=== PATIENT | female | born 1945 | race Caucasian/White ===

== ENCOUNTER 2019-12-28 11:32 | Outpatient (REF) | payer MEDICARE, SELFPAY ==
--- NOTE | 2019-12-28 11:36 | XR_ITS ---
EXAMINATION: XR KNEE, LEFT CLINICAL INFORMATION: Left knee pain. COMPARISON: None TECHNIQUE: Standing AP view of both knees is performed along with lateral and axial patella views of the left knee. FINDINGS: There is left knee arthroplasty. The hardware is intact. There is no fracture or dislocation or destructive process. There is likely some trace fluid suprapatellar bursa suggested on the lateral view. There is mineralization at quadriceps insertion patella and at origin patellar tendon. The axial view left patella shows mild lateralization. There is right knee arthroplasty. The hardware appears intact. There is no destructive process. The right prosthetic joint space appears not as wide as the left which could be projectional. IMPRESSION: Status post bilateral knee arthroplasty. No destructive process or osteolysis. Lateralization left patella with probable small suprapatellar effusion.
== END 2019-12-28 11:33 | disposition home or self-care (01) ==
LOC: CF 11:32
PROVIDERS: PCP Family Medicine; Visit Provider Orthopaedic Surgery
DX: M25.562 Pain in left knee (principal)
CPT/HCPCS: 20610; 73562; 99213

== ENCOUNTER 2019-12-28 13:52 | Outpatient (REF) | payer MEDICARE, SELFPAY | END 2019-12-28 13:53 | disposition home or self-care (01) | LOC: HO.LAB 13:52 | PROVIDERS: PCP Family Medicine; Visit Provider Internal Medicine | DX: Z20.828 Contact with and (suspected) exposure to other viral communicable diseases (principal) | CPT/HCPCS: 87635 ==

== ENCOUNTER → 2020-02-02 08:32 | Outpatient (BNVA) | payer MEDICARE, SELFPAY | PROVIDERS: PCP Family Medicine; Referring Provider Family Medicine; Visit Provider Urology | DX: Z76.89 Persons encountering health services in other specified circumstances (principal) | CPT/HCPCS: 99212 ==

== ENCOUNTER → 2020-02-05 12:26 | Outpatient (BNVA) | payer MEDICARE, SELFPAY | PROVIDERS: PCP Family Medicine; Referring Provider Family Medicine; Visit Provider Orthopaedic Surgery | DX: T84.84XD Pain due to internal orthopedic prosthetic devices, implants and grafts, subsequent encounter (principal); Z96.652 Presence of left artificial knee joint | CPT/HCPCS: 99212 ==

== ENCOUNTER → 2020-04-02 10:40 | Outpatient (BNVA) | payer MEDICARE, SELFPAY | PROVIDERS: PCP Family Medicine; Visit Provider Internal Medicine | DX: J45.909 Unspecified asthma, uncomplicated (principal); J98.4 Other disorders of lung; Z87.891 Personal history of nicotine dependence | CPT/HCPCS: 99212 ==

== ENCOUNTER 2020-05-03 08:28 | Day surgery (SDC) | payer MEDICARE, SELFPAY ==
[2020-04-29 15:35] VITALS: BMI 31.1
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
[2020-05-03 09:55] VITALS: BP 112/67; PULSE 96; RESP 18; TEMP 36.6; O2SAT 96
[2020-05-03] MEDS: Lactated Ringers 1,000 ML 100 ML IVCONT (10:00)
[2020-05-03 11:36] VITALS: BP 95/53; PULSE 74; RESP 12; TEMP 36.7; O2SAT 95
--- NOTE | 2020-05-03 11:36 | PM.OP ---
Brief Operative Note Date of Service: 05/03/20 Pre-op diagnosis: Screening, Diarrhea Post-op diagnosis: other (Diverticuylosis, R/O Microscopic colitis) Procedure: Colonoscopy to the cecum with biopsies Surgeon: Sergey Hernandez Anesthesia: MAC Estimated blood loss (mL): 4.0 Pathology: other (A. Ascending colon B. Descending colon) Condition: stable Disposition: PACU
[2020-05-03 11:51] VITALS: BP 96/63; PULSE 74; RESP 16; TEMP 36.7; O2SAT 96
--- NOTE | 2020-05-03 12:11 | OP_ITS ---
SURGEON: Sergey Hernandez MD INDICATIONS: The patient presents for evaluation of colorectal cancer screening, family history of colon cancer, and intermittent diarrhea. Full consent has been obtained from her for this, including risks of bleeding and perforation. PREOPERATIVE DIAGNOSIS: POSTOPERATIVE DIAGNOSIS: PROCEDURE PERFORMED: Colonoscopy to the cecum with biopsies. ESTIMATED BLOOD LOSS: COMPLICATIONS: ANESTHESIA: Monitored anesthesia care. ASSISTANTS: SPECIMENS: PREOPERATIVE DIAGNOSES: Colorectal cancer screening, family history of colon cancer, and intermittent diarrhea. POSTOPERATIVE DIAGNOSES: Colorectal cancer screening, family history of colon cancer, and intermittent diarrhea, diverticulosis, internal hemorrhoids, rule out microscopic colitis. DESCRIPTION OF PROCEDURE: The patient was placed in the left lateral decubitus position. The digital rectal exam revealed no abnormalities. The Olympus video pediatric colonoscope was entered into the rectum and advanced to the cecum with the assistance of abdominal wall pressure. Once in the cecum, I did identify normal-appearing cecal pouch with appendiceal orifice and a normal-appearing ileocecal valve. The entire cecum and ileocecal valve appeared normal. The scope was slowly withdrawn assessing all mucosal surfaces carefully. Preparation was excellent. I did not visualize any sign of polyps, colitis, nor angiodysplasia. I did obtain random biopsies in the ascending and descending colon. There was a mild amount of sigmoid diverticulosis. In the rectum, scope was retroflexed visualizing small internal hemorrhoids, but no other pathology. The rectal mucosa appeared normal. The scope was straightened out and withdrawn from the patient. She tolerated the procedure well and was returned to the recovery area in stable condition. IMPRESSION: 1. Diverticulosis. 2. Internal hemorrhoids. 3. Rule out microscopic colitis. PLAN: The patient will continue to use Imodium as needed for any loose bowel movements. She was advised not to use any aspirin nor NSAIDs for 1 week. If things are stable, she will see me on a p.r.n. basis. Sergey Hernandez MD RMArt/WALLYL / [phone]
[2020-05-03 12:17] LABS: Glucose, Whole Blood 170 mg/dL (60-115)
== END 2020-05-03 12:20 | disposition home or self-care (01) ==
PROVIDERS: PCP Family Medicine; Visit Provider Internal Medicine
PROC: 0DJD8ZZ Inspection of Lower Intestinal Tract, Via Natural or Artificial Opening Endoscopic (ICD-10-PCS; CPT 45378; principal; 2020-05-03 10:00)
DX: Z12.11 Encounter for screening for malignant neoplasm of colon (principal); R19.7 Diarrhea, unspecified; K57.30 Diverticulosis of large intestine without perforation or abscess without bleeding; K64.8 Other hemorrhoids; E11.9 Type 2 diabetes mellitus without complications; Z79.84 Long term (current) use of oral hypoglycemic drugs; Z80.0 Family history of malignant neoplasm of digestive organs
CPT/HCPCS: 45380; 82947; 88305

== ENCOUNTER 2020-05-28 11:28 | Outpatient (REF) | payer MEDICARE, SELFPAY ==
--- NOTE | 2020-05-30 14:23 | MHC.AU.P13 ---
Adult Audiological Evaluation Date of Visit: 05/28/20 Reason for Appointment: Audiological evaluation due to concern for decreased hearing. Patient's notes that she hasn't noticed many difficulties hearing, but her primary care recommended it. She notes that her left ear has been feeling clogged. Does patient feel they have a hearing loss?: Unsure Has hearing been tested previously?: Yes Previous Hearing Test Results: States that she had a hearing test years ago, results not available to be reviewed. Hearing Handicap Inventory: HHIE SCORE: 0 Based on HHIE score, patient has: No perceived hearing handicap Ear History: History of Ear Wax Buildup: Both Ears Medical History: Medical History: Headache, Head Injury, High Blood Pressure, Thyroid Disease Medical History (Other): Brain aneurysm Allergies: White fish Otoscopy: Right Ear: Unremarkable Left Ear: Unremarkable Tympanometry: Tympanometry performed due to: To assess integrity of the middle ear system Right Ear: Normal Middle Ear System (Type A) Left Ear: Normal Middle Ear System (Type A) Hearing Evaluation: Transducer(s) Used: Insert Earphones, Bone Conduction Method: Conventional Audiometry Stimuli Used: Pure Tones Right Ear: Description of Hearing: Mild sloping to moderately severe sensorineural hearing loss from 250-8000 Hz. Left Ear: Description of Hearing: Mild sloping to moderately severe sensorineural hearing loss from 250-8000 Hz. Speech Recognition Threshold (SRT): Method Used: Monitored Live Voice Stimuli Used: Spondee Words Right Ear: 25 dBHL Left Ear: 25 dBHL Word Discrimination: Method: Recorded Lists Word Lists Used: NU-6 Right Ear: 84% at 65 dBHL Left Ear: 88% at 65 dBHL Interpretation of Results: Symmetrical, mild to moderately severe sensorineural hearing loss bilaterally. Recommendations: Audiological re-evaluation in one year. Trial with amplification is recommended. May benefit from amplification, however patient states she is not interested in trying hearing aids at this time as she feels she does not need them and doesn't have difficulty hearing. Welcome to return to discuss hearing aids further if she should like to pursue them. Diagnosis: Primary Diagnosis: H90.3 Bilateral Sensorineural Hearing Loss Services Performed: Services Performed: Comprehensive Audiological Evaluation (CPT 50389) Tympanometry (CPT 41576) Signature: Provider: Amanda Hilton, CCC-A
== END 2020-05-28 11:29 | disposition home or self-care (01) ==
LOC: HO.SH 11:28
PROVIDERS: Visit Provider Family Medicine
DX: H90.3 Sensorineural hearing loss, bilateral (principal)
CPT/HCPCS: 92557; 92567

== ENCOUNTER 2020-06-27 12:31 | Outpatient (REF) | payer MEDICARE, SELFPAY ==
[2020-06-27 13:34] LABS: Blood Urea Nitrogen 16 mg/dL (9-16); Estimated Glomerular Filt Rate > 60
== END 2020-06-27 12:32 | disposition home or self-care (01) ==
LOC: HO.LAB 12:31
PROVIDERS: PCP Family Medicine; Visit Provider Otolaryngology
DX: R22.1 Localized swelling, mass and lump, neck (principal)
CPT/HCPCS: 36415; 82565; 84520

== ENCOUNTER 2020-07-12 11:26 | Outpatient (REF) | payer MEDICARE, SELFPAY ==
--- NOTE | ~2020-07-12 | MM_ITS ---
EXAMINATION: MM SCREENING DIGITAL BREAST TOMOSYNTHESIS, BILATERAL CLINICAL INFORMATION: Screening. Asymptomatic. The lifetime risk of breast cancer based on the Tyrer-Cuzick Model is 2%. COMPARISON: Mammography: 02/08/2019, 01/14/2018, 12/25/2016 TECHNIQUE: Digital breast tomosynthesis is performed in both the craniocaudal and mediolateral oblique views along with computer-aided detection (CAD). Synthesized 2D images are generated from the tomosynthesis. FINDINGS: The breasts are heterogeneously dense, which may obscure small masses (ACR BI-RADS breast composition Category c). Parenchymal pattern is similar to prior exams. There is no developing density or interval mass or architectural abnormality. Again, there are scattered bilateral vascular calcifications. The left CC view has increased punctate calcifications mid medial breast, possibly early vasculature. These are not as well appreciated on MLO view. Patient will be recalled for additional imaging. MM/MM tomosynthesis screening BI IMPRESSION: 1. Left: Increased fine calcifications medial left breast, possibly vascular. 2. Right: No mammographic evidence of malignancy. ASSESSMENT: BI-RADS 0: Incomplete - Need Additional Imaging Evaluation RECOMMENDATION: 1. Additional views of the left breast (magnification CC, magnification LM). 2. Radiology department staff will contact the patient for additional imaging. This patient's information was entered into a reminder system with a target due date for their next mammogram.
== END 2020-07-12 11:27 | disposition home or self-care (01) ==
LOC: HO.MAMMO 11:26
PROVIDERS: PCP Family Medicine; Visit Provider Family Medicine
DX: Z12.31 Encounter for screening mammogram for malignant neoplasm of breast (principal)
CPT/HCPCS: 77063; 77067

== ENCOUNTER 2020-07-18 08:25 | Outpatient (REF) | payer MEDICARE, SELFPAY ==
--- NOTE | ~2020-07-18 | MM_ITS ---
EXAMINATION: MM DIAGNOSTIC DIGITAL MAMMOGRAPHY, LEFT CLINICAL INFORMATION: Recall from screening for calcifications mid medial left breast. COMPARISON: Mammography: 07/12/2020 and remote diagnostic mammography 06/21/2009 and 12/17/2008. TECHNIQUE: Digital mammography is performed in the following views: Magnification CC, magnification LM x2. FINDINGS: The breasts are heterogeneously dense, which may obscure small masses (ACR BI-RADS breast composition Category c). The additional magnification views show some loosely grouped stable calcifications posterior upper left breast in area of old vascular calcification. There are some scattered punctate calcifications more anteriorly upper inner left breast and at tight group of calcifications 9:30 - 10:00 position which are without change from prior remote magnification views left breast 2009 and 2008. No increasing or interval new calcifications demonstrated. Results are discussed with the patient at time of visit. MM/MM added views LT IMPRESSION: Calcifications appear similar to remote prior diagnostic left mammography. No significant changes. ASSESSMENT: BI-RADS 2: Benign RECOMMENDATION: Routine annual mammography screening. This patient's information was entered into a reminder system with a target due date for their next mammogram.
== END 2020-07-18 08:26 | disposition home or self-care (01) ==
LOC: HO.MAMMO 08:25
PROVIDERS: Visit Provider Family Medicine
DX: R92.1 Mammographic calcification found on diagnostic imaging of breast (principal)
CPT/HCPCS: 77065

== ENCOUNTER → 2020-07-22 08:26 | Outpatient (REF) | payer MEDICARE, SELFPAY ==
--- NOTE | ~2020-07-22 | MM_ITS ---
EXAMINATION: MM DIAGNOSTIC DIGITAL BREAST TOMOSYNTHESIS, BILATERAL CLINICAL INFORMATION: Shooting pain in and around the nipple of the left breast The lifetime risk of breast cancer based on the Tyrer-Cuzick Model is 2%. COMPARISON: Mammography: July 18, 2020 and studies dating back to October 27, 2013 TECHNIQUE: Digital breast tomosynthesis is performed in both the craniocaudal and mediolateral oblique views along with computer-aided detection (CAD). Synthesized 2D images are generated from the tomosynthesis. Targeted left breast ultrasound retroareolar region. FINDINGS: The breasts are heterogeneously dense, which may obscure small masses (ACR BI-RADS breast composition Category c). There are no significant masses, abnormal calcifications, or other abnormalities. No left breast ultrasound abnormality in the retroareolar region was identified. Results are discussed with the patient at time of visit.
--- NOTE | ~2020-07-22 | NM_ITS ---
Myocardial perfusion study Indication: Shortness of breath evaluate for myocardial ischemia Technique: The patient was brought in for a Lexiscan perfusion study on 07/22/2020. Patient performed low-level exercise and was injected 0.4 mg of Lexiscan intravenously. Within a minute of injection, 25 mCi of sestamibi was given intravenously. Images were obtained using the SPECT gamma camera interlaced with the gating device. Images were obtained in supine position. Resting perfusion study was performed on 07/24/2020. Patient was administered 25 mCi of sestamibi intravenously at rest. Images were then obtained in supine position. Images obtained with and without CT attenuation. Total DLP 93 mGy-cm. Images were processed with the software and compared side to side in short axis, horizontal long axis and vertical long axis views. Findings: The stress perfusion study showed non attenuated images show normal uptake of radiotracer in all segments of LV myocardium. Attenuation corrected images show small area of mildly reduced uptake in the apex of the LV myocardium.. The gated study shows normal LV systolic function with calculated LVEF of 69%. LV cavity is normal in size. The gated study shows normal systolic wall thickening and contraction of segments. Resting study shows no change in perfusion pattern compared to stress perfusion study. Gating at rest reveals normal systolic wall motion with ejection fraction at greater than 70 %. The findings are consistent with normal myocardial perfusion. NM/NM arely perf SPECT rest & str Impression: 1. Myocardial perfusion imaging study shows normal myocardial perfusion 2. Gated LVEF is 69% 3. Transient ischemic dilatation not present EKG is nondiagnostic for ischemia
--- NOTE | ~2020-07-22 | US_ITS ---
EXAMINATION: US DIAGNOSTIC ULTRASOUND BREAST, LEFT CLINICAL INFORMATION: Retroareolar pain. COMPARISON: Mammography of same day and studies dating back to October 27, 2013. TECHNIQUE: Ultrasound of the breast is performed with real-time patino scale imaging and color Doppler. FINDINGS: There is no focal suspicious finding. There is no solid mass, architectural abnormality, duct ectasia, or edema in the soft tissue planes. Results are discussed with the patient at time of visit.
--- NOTE | 2020-07-22 09:15 | CA_ITS ---
Acquisition Time: 2020-07-22 09:07:57 Total Exercise Time: 00:02:00 Test Indications: CP Medications: SEE CHART Protocol: LEXISCAN Max HR: 129 BPM 88% of Pred: 145 BPM Max BP: 130/080 mmHG Max Work Load: 1.0 METS Pharmacological stress test using Lexiscan while sitting. Pt tolerated well, denies any anginal sx. Sx of dizziness reversed with Aminophyline 75 mg IV. EKG with burst of a-fib. in recovery period. As her rate imncreased pt's rhythm changed to incomplete LBBB. Non-diagnostic for ischemia. Nuclear images to follow. Normotensive response to test. Test reviewed with Dr. Casillas. Referred By: Huey Herrera Overread By: Evelyne Chow NP
== END ==
LOC: HO.CARD 08:26
PROVIDERS: Visit Provider Internal Medicine Cardiovascular Disease
DX: R06.02 Shortness of breath (principal)
CPT/HCPCS: 78452; 93016; 93017; 93018; A9500; J0280; J2785

== ENCOUNTER 2020-09-05 13:34 | Outpatient (REF) | payer MEDICARE, SELFPAY ==
--- NOTE | ~2020-09-05 | MM_ITS ---
EXAMINATION: BONE DENSITOMETRY CLINICAL INDICATION: Osteopenia. COMPARISON: Previous BD dated 10/18/2015 and baseline BD dated 01/28/2007. TECHNIQUE: Using a [employer] DXA System (software version: 13.1) manufactured by [employer], dual-energy x-ray absorptiometry was performed of the lumbar spine and left hip. The images are of good technical quality. Summary results are attached. FINDINGS: AP SPINE L1-L4: Current: BMD 1.323 g/cm2, Z-score 2.7, T-score 1.2, normal, 3.7% increase from previous, 31.3% increase from baseline (<5% change is not significant). Prior: BMD 1.276 g/cm2. Baseline: BMD 1.008 g/cm2. LEFT FEMUR, NECK: Current: BMD 0.729 g/cm2, Z-score -0.5, T-score -2.2, osteopenia. Prior: BMD 0.790 g/cm2. Baseline: BMD 0.747 g/cm2. LEFT FEMUR, TOTAL: Current: BMD 0.884 g/cm2, Z-score 0.6, T-score -1.0, normal, 0.3% decrease from previous, 2.4% decrease from baseline (<5% change is not significant). Prior: BMD 0.887 g/cm2. Baseline: BMD 0.906 g/cm2. IDENTIFIED RISK FACTORS: Menopause, height loss, osteoporosis, family history (parent hip fracture). HISTORY OF FRACTURE: None listed. MEDICATIONS: Calcium, vitamin D. MM/XR DEXA axial skeleton IMPRESSION: 1. DIAGNOSIS: Osteopenia based on the lowest T-score value of -2.2 in the femoral neck applying World Health Organization criteria. 2. 10-YEAR FRACTURE RISK PREDICTION, FRAX: Major osteoporotic fracture (clinical spine, forearm, hip or shoulder) 16.0%. Hip fracture 9.7%. 3. Treatment Recommendations: NOF guidelines recommend consideration for treatment in postmenopausal women and men age 50 and older presenting with the following: -A hip or vertebral (clinical or morphometric) fracture. -T-score less than or equal to -2.5 at the femoral neck or spine after appropriate evaluation to exclude secondary causes. -Low bone mass at the hip or spine and a 10-year fracture probability by FRAX of greater than or equal to 3% for hip fracture or greater than or equal to 20% for major osteoporotic fracture based on the [place] adapted WHO algorithm. 4. Other Recommendations: All treatment decisions require clinical judgment and consideration of individual patient factors, including patient preferences, comorbidities, previous drug use, risk factors not captured in the FRAX model (e.g. frailty, falls, vitamin D deficiency, increased bone turnover, interval significant decline in bone density) and possible under or overestimation of fracture risk by FRAX. Additional medical evaluation for secondary cause of low bone mineral density may be appropriate. FUTURE SCAN RECOMMENDATION: People with diagnosed cases of osteoporosis or at high risk for fracture should have regular bone mineral density tests. For patients eligible for Medicare, routine testing is allowed once every 2 years. The testing frequency can be increased to one year for patients who have rapidly progressing disease, those who are receiving or discontinuing medical therapy to restore bone mass, or have additional risk factors.
== END 2020-09-05 13:35 | disposition home or self-care (01) ==
LOC: HO.MAMMO 13:34
PROVIDERS: PCP Family Medicine; Visit Provider Family Medicine
DX: Z13.820 Encounter for screening for osteoporosis (principal); M85.80 Other specified disorders of bone density and structure, unspecified site; R29.890 Loss of height; Z78.0 Asymptomatic menopausal state
CPT/HCPCS: 77080

== ENCOUNTER 2020-09-05 14:30 | Emergency (ER) | payer MEDICARE, SELFPAY ==
--- NOTE | 2020-09-05 | ECG_ITS ---
Test Reason : CHEST PAIN Blood Pressure : / mmHG Vent. Rate : 072 BPM Atrial Rate : 072 BPM P-R Int : 178 ms QRS Dur : 102 ms QT Int : 382 ms P-R-T Axes : 027 -20 076 degrees QTc Int : 418 ms Normal sinus rhythm Possible Lateral infarct , age undetermined Inferior infarct , age undetermined Abnormal ECG When compared to the previous EKG of 11 nov 2019, changes noted in lateral leads Referred By: Generic ED Physician Electronically Signed By:JUAN PENA
--- NOTE | ~2020-09-05 | XR_ITS ---
EXAMINATION: XR CHEST CLINICAL INFORMATION: Mid chest pain COMPARISON: None TECHNIQUE: 2 views of the chest were obtained. FINDINGS: The lungs are well-expanded and clear. The heart size and pulmonary vascularity is normal. No gross bony abnormality seen. XR/XR chest 2V IMPRESSION: Unremarkable chest exam.
[2020-09-05 15:10] VITALS: BP 114/61; PULSE 73; RESP 18; TEMP 36.5; O2SAT 95; BMI 30.2
[2020-09-05 16:50] LABS: MANUAL DIFF FLAG NO
[2020-09-05 16:51] LABS: Basophils Percent Auto 0.1 % (0-2); Eosinophils Absolute Auto 0.1 X10*3/uL (0.0-0.4); Hematocrit 45.5 % (37-47); Hemoglobin 15.1 g/dl (12.0-16.0); Imm Gran Abs Auto 0.02 X10*3/uL (0.00-0.03); Imm Gran Pct Auto 0.2 % (0.0-0.4); Lymphocytes Absolute Auto 2.4 X10*3/uL (1.2-4.9); Lymphocytes Percent Auto 28.9 % (20-40); Mean Corpuscular HGB Conc 33.2 g/dl (31.0-35.0); Mean Corpuscular Hemoglobin 30.3 pg (27.0-33.0); Mean Corpuscular Volume 91.4 fL (80-98); Mean Platelet Volume 11.1 fL (9.4-12.3); Monocytes Absolute Auto 0.6 X10*3/uL (0.1-1.2); Monocytes Percent Auto 6.9 % (2-11); Neutrophils Absolute Auto 5.2 X10*3/uL (2.0-8.3); Neutrophils Percent Auto 62.9 % (45-73); Platelet Count 231 X10*3/uL (160-400); Red Blood Count 4.98 X10*6/uL (4.20-5.50); Red Cell Distribution Width 12.5 % (11.0-16.0); White Blood Count 8.3 X10*3/uL (4.8-10.8)
[2020-09-05 17:23] LABS: Troponin-I High Sensitivity < 3.5 ng/L (<3.5-17.0)
[2020-09-05 17:30] LABS: Alanine Aminotransferase 13 U/L (0-31); Albumin Level 4.7 g/dL (3.5-5.0); Alkaline Phosphatase 87 U/L (39-117); Anion Gap 14 (12-20); Aspartate Amino Transferase 19 U/L (5-31); Bilirubin Total 0.6 mg/dL (0.0-1.0); Blood Urea Nitrogen 15 mg/dL (9-16); Calcium 10.5 mg/dL (8.4-10.2); Carbon Dioxide 29 mmol/L (22-29); Chloride 103 mmol/L (96-108); Creatinine Clr Calc Pharmacy 57.4; Estimated Glomerular Filt Rate > 60; Glucose Random 123 mg/dL (60-115); Potassium 4.9 mmol/L (3.3-5.1); Sodium 141 mmol/L (135-145); Total Protein 7.9 g/dL (6.5-8.0)
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
== END 2020-09-05 18:14 | disposition home or self-care (01) ==
LOC: HO.ED 18:06
PROVIDERS: Emergency Provider Emergency Medicine Emergency Medical Services; PCP Family Medicine
DX: R07.89 Other chest pain (principal); E11.9 Type 2 diabetes mellitus without complications; J44.9 Chronic obstructive pulmonary disease, unspecified; Z79.84 Long term (current) use of oral hypoglycemic drugs; Z79.899 Other long term (current) drug therapy
CPT/HCPCS: 36415; 71046; 80053; 84484; 85025; 93005; 99283

== ENCOUNTER → 2020-10-15 10:01 | Outpatient (BNVA) | payer MEDICARE, SELFPAY | PROVIDERS: PCP Family Medicine; Visit Provider Internal Medicine | DX: J45.909 Unspecified asthma, uncomplicated (principal) | CPT/HCPCS: 99212 ==

== ENCOUNTER 2020-10-16 11:04 | Outpatient (REF) | payer MEDICARE, SELFPAY ==
[2020-10-16 14:24] LABS: MANUAL DIFF FLAG NO
[2020-10-16 14:28] LABS: Basophils Percent Auto 0.2 % (0-2); Eosinophils Absolute Auto 0.1 X10*3/uL (0.0-0.4); Eosinophils Percent Auto 1.2 % (0-4); Hematocrit 46.1 % (37-47); Hemoglobin 15.1 g/dl (12.0-16.0); Imm Gran Abs Auto 0.03 X10*3/uL (0.00-0.03); Imm Gran Pct Auto 0.4 % (0.0-0.4); Lymphocytes Absolute Auto 2.4 X10*3/uL (1.2-4.9); Lymphocytes Percent Auto 28.7 % (20-40); Mean Corpuscular HGB Conc 32.8 g/dl (31.0-35.0); Mean Corpuscular Hemoglobin 29.7 pg (27.0-33.0); Mean Corpuscular Volume 90.7 fL (80-98); Mean Platelet Volume 11.6 fL (9.4-12.3); Monocytes Absolute Auto 0.5 X10*3/uL (0.1-1.2); Monocytes Percent Auto 6.1 % (2-11); Neutrophils Absolute Auto 5.4 X10*3/uL (2.0-8.3); Neutrophils Percent Auto 63.4 % (45-73); Platelet Count 235 X10*3/uL (160-400); Red Blood Count 5.08 X10*6/uL (4.20-5.50); Red Cell Distribution Width 12.8 % (11.0-16.0); White Blood Count 8.5 X10*3/uL (4.8-10.8)
[2020-10-16 15:00] LABS: C Reactive Protein 0.47 mg/dL (< or = 0.50)
[2020-10-16 15:11] LABS: Erythrocyte Sedimentation Rate 10 MM/HR (0-20)
== END 2020-10-16 11:05 | disposition home or self-care (01) ==
LOC: HO.LAB 11:04
PROVIDERS: Absent Provider Family Medicine; PCP Family Medicine
DX: R35.0 Frequency of micturition (principal)
CPT/HCPCS: 36415; 51798; 85025; 85652; 86140; 99212

== ENCOUNTER 2020-11-21 12:27 | Outpatient (REF) | payer MEDICARE, SELFPAY ==
--- NOTE | ~2020-11-21 | XR_ITS ---
EXAMINATION: XR KNEE, LEFT XR KNEE STANDING, BILATERAL CLINICAL INFORMATION: Pain. COMPARISON: 12/28/2019 TECHNIQUE: AP standing view of both knees. [place] and lateral views of the left knee. FINDINGS: Standing views of both knees demonstrate the patient to be status post bilateral total knee arthroplasties. The femoral and tibial components appear in good position without evidence of fracture or loosening. [place] and lateral views of the left knee demonstrate a small left knee effusion. Vascular calcifications are present. XR/XR knee standing BI IMPRESSION: Status post bilateral knee arthroplasties without evidence of fracture or dislocation. Left knee effusion.
--- NOTE | ~2020-11-21 | XR_ITS ---
EXAMINATION: XR KNEE, LEFT XR KNEE STANDING, BILATERAL CLINICAL INFORMATION: Pain. COMPARISON: 12/28/2019 TECHNIQUE: AP standing view of both knees. [place] and lateral views of the left knee. FINDINGS: Standing views of both knees demonstrate the patient to be status post bilateral total knee arthroplasties. The femoral and tibial components appear in good position without evidence of fracture or loosening. [place] and lateral views of the left knee demonstrate a small left knee effusion. Vascular calcifications are present. XR/XR knee LT 2V IMPRESSION: Status post bilateral knee arthroplasties without evidence of fracture or dislocation. Left knee effusion.
== END 2020-11-21 12:28 | disposition home or self-care (01) ==
LOC: HO.HOSX 12:27
PROVIDERS: PCP Family Medicine; Visit Provider Orthopaedic Surgery
DX: S80.02XA Contusion of left knee, initial encounter (principal); Z96.652 Presence of left artificial knee joint
CPT/HCPCS: 73560; 73565; 99212

== ENCOUNTER → 2020-11-29 14:04 | Outpatient (BNVA) | payer MEDICARE, SELFPAY | PROVIDERS: PCP Family Medicine | DX: N39.41 Urge incontinence (principal) | CPT/HCPCS: 51798; 99212 ==

== ENCOUNTER → 2020-12-10 14:03 | Outpatient (BNVA) | payer MEDICARE, SELFPAY | PROVIDERS: PCP Family Medicine; Visit Provider Internal Medicine | DX: J98.4 Other disorders of lung (principal); J45.909 Unspecified asthma, uncomplicated | CPT/HCPCS: 99212 ==

== ENCOUNTER 2020-12-16 12:41 | Day surgery (SDC) | payer MEDICARE, SELFPAY ==
[2020-12-11 11:49] VITALS: BMI 33.1
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
[2020-12-16 13:08] VITALS: BP 134/58; PULSE 73; RESP 16; TEMP 36.6; O2SAT 94
[2020-12-16 13:10] LABS: Glucose, Whole Blood 142 mg/dL (60-115)
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
[2020-12-16] MEDS: Lactated Ringers 1,000 ML 50 ML IVCONT (13:43)
--- NOTE | 2020-12-16 14:13 | MHC.SHP ---
Pre-Procedural Eval Section A Date of Service: 12/16/20 Section B Chief Complaint: frequent urination Details of Present Illness: InterStim removal Relevant Social History: None Present Medications: see Short Stay Collaborative assessment Medical History: Significant History History of Previous Operations: Relevant previous surgery/procedure and date(s) Allergies: Allergies Allergy/AdvReac Type Severity Reaction Status Date / Time white fish Allergy Intermediate body Uncoded 12/11/20 11:31 swelling, redness Review of Systems Sugical H&P ROS: Negative: Constitution, Cardiovascular, Respiratory, Neurological, Psychiatric, Hem-Onc, Allergic/Immunologic, Gastrointestinal, Genitourinary, Musculoskeletal, Integumentary, Endocrine and Eyes/Ears/Nose/Throat Exam Surgical H&P Exam: Normal: HEENT, Normal: Heart, Normal: Lungs, Normal: Extremities, Normal: Abdomen, Normal: Skin and Normal: Neurological Plan Diagnosis/Plan: Unchanged (InterStim removal) I have reviewed the history and physical and performed a pertinent physical examination on my patient. No changes have occurred unless specified.
[2020-12-16] MEDS: levoFLOXacin/D5W 500 MG/100 ML PIGGYBACK 100 MG IV (14:20)
[2020-12-16 15:10] VITALS: BP 107/57; PULSE 81; RESP 16; TEMP 36.6; O2SAT 91
[2020-12-16 15:25] VITALS: BP 117/60; PULSE 78; RESP 18; O2SAT 94
--- NOTE | 2020-12-16 15:33 | W.PM.OPN ---
Operative Note Operative Note Date of Service: 12/16/20 Narrative: PreOperative Diagnosis: Nonfunctional InterStim generator with urgency frequency Post Operative Diagnosis: Same Procedure: InterStim removal Surgeon: Dr David Dunn Anesthesia: Sedation with local anesthetic Indications for procedure: InterStim in place for many years. Nonfunctioning. Would like battery removed. Understands lead will remain. Procedure: After informed consent was verified the patient was brought to the operating room and placed in a supine position. Anesthesia was administered per protocol. The patient was prepped and draped in sterile fashion. Safety pause time-out was performed. Antibiotics have been given. Prior incision was used. Local anesthetic was placed around the incision. Blade was used to divide the skin and incision into the subcutaneous tissue. The existing InterStim generator was found. This was removed through the incision. The wire was loosened and the stimulator was removed. The incision was washed 3-0 Vicryl used to ablate space. Running 4-0 Monocryl used for skin reapproximation in subcuticular fashion. Glue used as final dressing. Pathology: Stimulator Drains:
[2020-12-16 15:40] VITALS: BP 123/63; PULSE 74; RESP 18; TEMP 36.7; O2SAT 94
== END 2020-12-16 16:05 | disposition home or self-care (01) ==
PROVIDERS: PCP Family Medicine; Visit Provider Urology
PROC: (CPT 64595; principal; 2020-12-16 14:10)
DX: N39.41 Urge incontinence (principal); R35.0 Frequency of micturition; E11.9 Type 2 diabetes mellitus without complications; J44.9 Chronic obstructive pulmonary disease, unspecified
CPT/HCPCS: 64595; 82947; 88300; J1956; J3010

== ENCOUNTER → 2020-12-31 13:05 | Outpatient (BNVA) | payer MEDICARE, SELFPAY | PROVIDERS: PCP Family Medicine; Visit Provider Urology | DX: N32.81 Overactive bladder (principal) | CPT/HCPCS: 99212 ==

== ENCOUNTER 2021-01-24 14:40 | Outpatient (REF) | payer MEDICARE, SELFPAY ==
--- NOTE | ~2021-01-24 | XR_ITS ---
EXAMINATION: XR LUMBOSACRAL SPINE WITH OBLIQUES CLINICAL INFORMATION: Low back pain COMPARISON: None TECHNIQUE: AP, both oblique, and lateral views of the lumbar spine. Lateral view of the lumbosacral junction. FINDINGS: There is curvature of the lumbar spine to the left. Bone alignment is otherwise normal. No fracture or dislocation is seen. There is multilevel degenerative disc disease in the lower lumbar spine greatest at L3-L4 and L5-S1. There is lower lumbar spine facet arthritis. There is a disconnected stimulator lead in the right sacrum. There are surgical clips in the right upper quadrant suggestive of previous cholecystectomy. There is evidence of atherosclerotic disease. XR/XR lumbar spine 4V min IMPRESSION: Scoliosis and degenerative changes. No fracture seen.
--- NOTE | ~2021-01-24 | XR_ITS ---
EXAMINATION: XR HIP, RIGHT CLINICAL INFORMATION: Pain COMPARISON: Previous CT of the abdomen December 2018 TECHNIQUE: Two views of the right hip. FINDINGS: No fracture or dislocation is seen. There is mild right hip arthritis with joint space narrowing and osteophyte formation. There is a disconnected spinal stimulator lead seen on the right. Soft tissues are otherwise unremarkable. XR/XR hip RT min 2V IMPRESSION: Mild right hip arthritis. Disconnected spinal stimulator lead on the right.
== END 2021-01-24 14:41 | disposition home or self-care (01) ==
LOC: HO.XRAY 14:40
PROVIDERS: PCP Family Medicine; Visit Provider Family Medicine
DX: M54.50 Low back pain, unspecified (principal)
CPT/HCPCS: 72110; 73502

== ENCOUNTER 2021-01-24 14:43 | Outpatient (REF) | payer MEDICARE, SELFPAY ==
[2021-01-24 15:04] LABS: COVID-19 Test Negative (Negative)
== END 2021-01-24 14:44 | disposition home or self-care (01) ==
LOC: HO.LAB 14:43
PROVIDERS: PCP Family Medicine; Visit Provider Internal Medicine
DX: Z20.822 Contact with and (suspected) exposure to COVID-19 (principal)
CPT/HCPCS: 36415; 87635; C9803

== ENCOUNTER → 2021-02-03 10:29 | Outpatient (BNVA) | payer MEDICARE, SELFPAY | PROVIDERS: PCP Family Medicine; Visit Provider Internal Medicine | DX: M41.9 Scoliosis, unspecified (principal); M47.816 Spondylosis without myelopathy or radiculopathy, lumbar region; M54.51 Vertebrogenic low back pain | CPT/HCPCS: 99202 ==

== ENCOUNTER 2021-02-05 06:39 | Outpatient (REF) | payer MEDICARE, SELFPAY ==
--- NOTE | ~2021-02-05 | FL_ITS ---
EXAMINATION: XR FLUOROSCOPY WITH IMAGES CLINICAL INFORMATION: Low back pain COMPARISON: None. TECHNIQUE: Fluoroscopy performed by . Fluoroscopy time: 0.2 minutes DAP: 3 Gycm2 Images: 1 FINDINGS: Images demonstrate needle placement and contrast injection adjacent to the L3, L4 and L5 pedicles. FL/FL guidance in treatment room IMPRESSION: Fluoroscopy guidance for pain management procedure.
== END 2021-02-05 06:40 | disposition home or self-care (01) ==
LOC: HO.RADIR 06:39
PROVIDERS: Visit Provider Internal Medicine
DX: M54.51 Vertebrogenic low back pain (principal); M47.816 Spondylosis without myelopathy or radiculopathy, lumbar region
CPT/HCPCS: 64493; 64494; Q9967

== ENCOUNTER 2021-02-07 11:24 | Emergency (ER) | payer MEDICARE, SELFPAY ==
--- NOTE | ~2021-02-07 | XR_ITS ---
EXAMINATION: XR CHEST CLINICAL INFORMATION: Shortness of breath COMPARISON: Chest radiographs 09/05/2020, 08/30/2018 TECHNIQUE: Frontal view of the chest was obtained. FINDINGS: There is patchy consolidation mid left lung with associated linear disc atelectasis. The remainder the lungs are clear. The costophrenic sulci are well-defined there is no effusion. The heart is normal in size. The vascularity is normal. The hilar and mediastinal contours and bony structures are unchanged. XR/XR chest 1V IMPRESSION: Patchy consolidation left midlung. No effusion.
[2021-02-07 11:34] VITALS: BP 146/72; PULSE 74; RESP 18; TEMP 36.6; O2SAT 94; BMI 32.2
--- NOTE | 2021-02-07 12:34 | ECG_ITS ---
Test Reason : CHEST TIGHTNESS Blood Pressure : / mmHG Vent. 

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
[2021-02-07 12:41] LABS: Influenza A PCR NEGATIVE (Negative); Influenza B PCR NEGATIVE (Negative); Resp Syncy Virus RNA Qual PCR NEGATIVE (Negative); SARS COV2 PCR INHOUSE POSITIVE (Negative)
[2021-02-07 13:02] LABS: MANUAL DIFF FLAG NO
[2021-02-07 13:04] LABS: Basophils Percent Auto 0.4 % (0-2); Eosinophils Absolute Auto 0.1 X10*3/uL (0.0-0.4); Eosinophils Percent Auto 1.2 % (0-4); Hemoglobin 14.5 g/dl (12.0-16.0); Imm Gran Abs Auto 0.08 X10*3/uL (0.00-0.03); Imm Gran Pct Auto 1.1 % (0.0-0.4); Lymphocytes Absolute Auto 2.1 X10*3/uL (1.2-4.9); Lymphocytes Percent Auto 27.3 % (20-40); Mean Corpuscular Hemoglobin 29.8 pg (27.0-33.0); Mean Corpuscular Volume 90.5 fL (80.0-98.0); Mean Platelet Volume 10.4 fL (9.4-12.3); Monocytes Absolute Auto 0.6 X10*3/uL (0.1-1.2); Monocytes Percent Auto 7.3 % (2-11); Neutrophils Absolute Auto 4.7 x10*3/uL (2.0-8.3); Neutrophils Percent Auto 62.7 % (45-73); Platelet Count 260 X10*3/uL (160-400); Red Blood Count 4.86 X10*6/uL (4.20-5.50); Red Cell Distribution Width 12.7 % (11.0-16.0); White Blood Count 7.5 X10*3/uL (4.8-10.8)
[2021-02-07 13:25] LABS: Troponin-I High Sensitivity < 3.5 ng/L (<3.5-17.0)
[2021-02-07 13:30] LABS: Alanine Aminotransferase 15 U/L (0-31); Albumin Level 4.4 g/dL (3.5-5.0); Alkaline Phosphatase 71 U/L (39-117); Anion Gap 16 (12-20); Aspartate Amino Transferase 18 U/L (5-31); Bilirubin Direct 0.2 mg/dL (0.0-0.5); Bilirubin Total 0.5 mg/dL (0.0-1.0); Blood Urea Nitrogen 14 mg/dL (9-16); Calcium 10.5 mg/dL (8.4-10.2); Carbon Dioxide 27 mmol/L (22-29); Chloride 102 mmol/L (96-108); Creatinine Clr Calc Pharmacy 62.6; Estimated Glomerular Filt Rate > 60; Glucose Random 89 mg/dL (60-115); Potassium 5.1 mmol/L (3.3-5.1); Sodium 140 mmol/L (135-145); Total Protein 7.8 g/dL (6.5-8.0)
[2021-02-07 13:52] VITALS: RESP 18; O2SAT 94
== END 2021-02-07 13:56 | disposition home or self-care (01) ==
PROVIDERS: Nurse Practitioner Family; Emergency Provider Emergency Medicine; PCP Family Medicine
DX: U07.1 COVID-19 (principal); J12.82 Pneumonia due to coronavirus disease 2019; R06.02 Shortness of breath; E11.9 Type 2 diabetes mellitus without complications; J45.909 Unspecified asthma, uncomplicated; E78.5 Hyperlipidemia, unspecified; Z79.02 Long term (current) use of antithrombotics/antiplatelets; Z79.899 Other long term (current) drug therapy
CPT/HCPCS: 0241U; 36415; 71045; 80048; 80076; 84484; 85025; 93005; 99283; 99284

== ENCOUNTER → 2021-02-10 08:49 | Outpatient (BNVA) | payer MEDICARE, SELFPAY | PROVIDERS: PCP Family Medicine; Visit Provider Internal Medicine | DX: M47.816 Spondylosis without myelopathy or radiculopathy, lumbar region (principal); M41.9 Scoliosis, unspecified | CPT/HCPCS: Q3014 ==

== ENCOUNTER 2021-02-17 12:09 | Outpatient (REF) | payer MEDICARE, SELFPAY | END 2021-02-17 12:10 | disposition home or self-care (01) | LOC: HO.LAB 12:09 | PROVIDERS: PCP Family Medicine; Visit Provider Internal Medicine | DX: Z20.822 Contact with and (suspected) exposure to COVID-19 (principal) | CPT/HCPCS: C9803; U0003; U0005 ==

== ENCOUNTER → 2021-02-27 13:47 | Outpatient (BNVA) | payer MEDICARE, SELFPAY | PROVIDERS: PCP Family Medicine; Visit Provider Internal Medicine | DX: J45.909 Unspecified asthma, uncomplicated (principal); J98.4 Other disorders of lung | CPT/HCPCS: 99212 ==

== ENCOUNTER → 2021-03-04 09:29 | Outpatient (BNVA) | payer MEDICARE, SELFPAY | PROVIDERS: PCP Family Medicine | DX: N32.81 Overactive bladder (principal) | CPT/HCPCS: 51798; Q3014 ==

== ENCOUNTER 2021-03-12 09:27 | Outpatient (REF) | payer MEDICARE, SELFPAY ==
--- NOTE | ~2021-03-12 | CT_ITS ---
EXAMINATION: CT INNER EAR TEMPORAL BONES CLINICAL INFORMATION: Sudden hearing loss left side. COMPARISON: None. TECHNIQUE: Multidetector helical was performed in the axial plane with generation of oblique axial and coronal reformatted projections. This CT examination was performed using dose optimization techniques as appropriate, variously including the following: *Automated exposure control *Adjustment of mA and/or kV according to patient size (this includes techniques or standardized protocols for targeted exams where dose is matched to indication/reason for exam; i.e. extremities or head) *Use of iterative reconstruction technique DLP: 169 mGy-cm. FINDINGS: Right: The external auditory canal appears normal. The tympanic membrane is not thickened. The middle ear cavity is well-aerated. The scutum is sharp. Prussak's space is clear. The tegmen is intact. The ossicular chain is intact. The facial nerve has a normal course. The inner ear structures are normally formed. The internal auditory canal is normal in size. The mastoid air cells are normally pneumatized and well-aerated. The carotid canal and jugular bulb appear normal. No bony erosion or destruction is seen. Left: The external auditory canal appears normal. The tympanic membrane is not thickened. The middle ear cavity is well-aerated. The scutum is sharp. Prussak's space is clear. The tegmen is intact. The ossicular chain is intact. The facial nerve has a normal course. The inner ear structures are normally formed. The internal auditory canal is normal in size. The mastoid air cells are normally pneumatized and well-aerated. The carotid canal and jugular bulb appear normal. No bony erosion or destruction is seen. Additional findings: There is mild paranasal sinus mucosal thickening. Left-sided pterional craniotomy changes are noted in the setting of clipping of aneurysm clip placement in the left posterior communicating artery region. Some encephalomalacic and gliotic changes are seen in the left temporal lobe. CT/CT internal auditory canals BI IMPRESSION: Mastoids and middle ear cavities are clear. No discrete abnormality is seen involving the middle or inner ear structures.
--- NOTE | ~2021-03-12 | CT_ITS ---
EXAMINATION: CT HEAD WITHOUT CONTRAST CLINICAL INFORMATION: 75-year-old with sudden onset left-sided hearing loss. COMPARISON: 11/11/2019 CT TECHNIQUE: Contiguous axial imaging was performed from the skull base to vertex without intravenous administration of contrast. This CT examination was performed using dose optimization techniques as appropriate, variously including the following: *Automated exposure control *Adjustment of mA and/or kV according to patient size (this includes techniques or standardized protocols for targeted exams where dose is matched to indication/reason for exam; i.e. extremities or head) *Use of iterative reconstruction technique DLP: 848.80 mGy-cm FINDINGS: Redemonstrated is the presence of a left-sided pterional craniotomy with an aneurysm clip noted in place in the paraclinoid region on the left, unchanged in position. Streak and beam hardening artifact emanating from the clip partially obscures visualization of soft tissue and bony detail in this region which limits the examination. Redemonstrated is encephalomalacia in the inferior left frontal lobe, stable in appearance. Mild patchy zones of hypodensity are seen in the subcortical and deeper white matter of the cerebral hemispheres anteriorly, stable in appearance, likely reflecting chronic ischemic microangiopathy. There is moderate generalized diffuse brain parenchymal volume loss similar to the previous study. No evidence for acute hemorrhage, extra-axial fluid collection, significant space-occupying process or mass effect. The ventricular system is consistent with moderate generalized volume loss and is stable in appearance without definite hydrocephalus. Puentes-white matter differentiation is well maintained. The visualized brainstem and posterior fossa structures appear grossly intact within the limitations of the study. The bony structures are otherwise intact aside from postcraniotomy changes. The visualized mastoids, middle ear cavities and paranasal sinuses are predominantly unopacified. There is probably some dystrophic dural calcification subjacent to the craniotomy flap on the left which is unchanged. CT/CT head/brain wo con IMPRESSION: 1. No acute intracranial process. No evidence for hemorrhage, extra-axial fluid collection or acute territorial infarct. 2. Postoperative changes involving the left anterior frontal lobe with encephalomalacia and aneurysm clipping noted, stable in appearance, with probable mild chronic ischemic microangiopathy in the white matter of both cerebral hemispheres anteriorly, stable in appearance.
== END 2021-03-12 09:28 | disposition home or self-care (01) ==
LOC: HO.CT 09:27
PROVIDERS: PCP Family Medicine; Visit Provider Otolaryngology
DX: H91.92 Unspecified hearing loss, left ear (principal)
CPT/HCPCS: 70450; 70480

== ENCOUNTER → 2021-04-10 11:24 | Outpatient (BNVA) | payer MEDICARE, SELFPAY | PROVIDERS: PCP Family Medicine; Visit Provider Internal Medicine | DX: J44.9 Chronic obstructive pulmonary disease, unspecified (principal); J30.9 Allergic rhinitis, unspecified; J98.4 Other disorders of lung | CPT/HCPCS: 99212 ==

== ENCOUNTER → 2021-05-20 11:22 | Outpatient (BNVA) | payer MEDICARE, SELFPAY | PROVIDERS: PCP Family Medicine; Visit Provider Urology | DX: N32.81 Overactive bladder (principal); Z79.899 Other long term (current) drug therapy | CPT/HCPCS: 51798; 99212 ==

== ENCOUNTER 2021-05-26 08:37 | Outpatient (REF) | payer MEDICARE, SELFPAY ==
[2021-05-26 09:32] LABS: Estimated Average Glucose 146 mg/dL; Hemoglobin A1c % 6.7 %
[2021-05-26 09:40] LABS: Alanine Aminotransferase 18 U/L (0-31); Albumin Level 4.4 g/dL (3.5-5.0); Alkaline Phosphatase 66 U/L (39-117); Anion Gap 14 (12-20); Aspartate Amino Transferase 20 U/L (5-31); Bilirubin Total 0.7 mg/dL (0.0-1.0); Blood Urea Nitrogen 16 mg/dL (9-16); Calcium 10.4 mg/dL (8.4-10.2); Carbon Dioxide 29 mmol/L (22-29); Chloride 100 mmol/L (96-108); Cholesterol 123 mg/dL; Estimated Glomerular Filt Rate > 60; Glucose Random 144 mg/dL (60-115); HDL Cholesterol 36 mg/dL; LDL Cholesterol Calculated 61 mg/dl; Potassium 4.9 mmol/L (3.3-5.1); Sodium 138 mmol/L (135-145); Total Protein 7.4 g/dL (6.5-8.0); Triglycerides 134 mg/dL
[2021-05-26 10:04] LABS: TSH reflex Free T4 2.26 uIU/mL (0.32-4.0)
[2021-05-26 11:10] LABS: Creatinine Urine 87.42 mg/dL
[2021-05-26 13:39] VITALS: BMI 30.8
[2021-05-26 13:40] VITALS: BP 137/68; PULSE 82; RESP 16; TEMP 36.4; O2SAT 93
== END 2021-05-26 08:38 | disposition home or self-care (01) ==
LOC: HO.MS 08:37
PROVIDERS: Absent Provider Family Medicine; PCP Family Medicine; Visit Provider Ophthalmology
PROC: (CPT 66821; principal; 2021-05-26 16:00)
DX: H26.492 Other secondary cataract, left eye (principal); Z83.511 Family history of glaucoma; Z96.1 Presence of intraocular lens; I10 Essential (primary) hypertension; E11.9 Type 2 diabetes mellitus without complications; E03.9 Hypothyroidism, unspecified; J45.909 Unspecified asthma, uncomplicated; Z79.84 Long term (current) use of oral hypoglycemic drugs; Z79.899 Other long term (current) drug therapy; Z87.891 Personal history of nicotine dependence
CPT/HCPCS: 66821; 36415; 80053; 80061; 82043; 83036; 84443

== ENCOUNTER 2021-07-08 09:49 | Outpatient (REF) | payer MEDICARE, MEDICAID, SELFPAY ==
--- NOTE | 2021-07-08 13:25 | PFT_ITS ---
Forced vital capacity 105%, FEV1 116%, [id number] 148%, and MVV is 109%. After bronchodilator therapy, there is no change. Total lung capacity 88%. Residual volume 70%. Diffusion capacity 84% CONCLUSION: Normal pulmonary function test and no evidence of obstructive or restrictive pulmonary disorder. MD ANA Marsh/MODL / [id number]
== END 2021-07-08 09:50 | disposition home or self-care (01) ==
LOC: HO.RESP 09:49
PROVIDERS: PCP Family Medicine; Visit Provider Internal Medicine
DX: J44.9 Chronic obstructive pulmonary disease, unspecified (principal); J98.4 Other disorders of lung
CPT/HCPCS: 94060; 94727; 94729; 99212

== ENCOUNTER → 2021-07-23 14:27 | Outpatient (BNVA) | payer MEDICARE, MEDICAID, SELFPAY | PROVIDERS: PCP Family Medicine; Visit Provider Urology | DX: N32.81 Overactive bladder (principal) | CPT/HCPCS: 52287; J0585 ==

== ENCOUNTER 2021-07-25 | Outpatient (REF) | payer MEDICARE, MEDICAID, SELFPAY ==
--- NOTE | ~2021-07-25 | US_ITS ---
EXAMINATION: US DIAGNOSTIC ULTRASOUND BREAST, LEFT CLINICAL INFORMATION: Retroareolar pain. COMPARISON: Mammography of same day and studies dating back to October 27, 2013. TECHNIQUE: Ultrasound of the breast is performed with real-time patino scale imaging and color Doppler. FINDINGS: There is no focal suspicious finding. There is no solid mass, architectural abnormality, duct ectasia, or edema in the soft tissue planes. Results are discussed with the patient at time of visit. US/US breast LT limited IMPRESSION: No suspicious left breast retroareolar ultrasound findings. ASSESSMENT: BI-RADS 1: Negative RECOMMENDATION: Routine annual mammography screening. This patient's information was entered into a reminder system with a target due date for their next mammogram.
--- NOTE | ~2021-07-25 | MM_ITS ---
EXAMINATION: MM DIAGNOSTIC DIGITAL BREAST TOMOSYNTHESIS, BILATERAL CLINICAL INFORMATION: Shooting pain in and around the nipple of the left breast The lifetime risk of breast cancer based on the Tyrer-Cuzick Model is 2%. COMPARISON: Mammography: July 18, 2020 and studies dating back to October 27, 2013 TECHNIQUE: Digital breast tomosynthesis is performed in both the craniocaudal and mediolateral oblique views along with computer-aided detection (CAD). Synthesized 2D images are generated from the tomosynthesis. Targeted left breast ultrasound retroareolar region. FINDINGS: The breasts are heterogeneously dense, which may obscure small masses (ACR BI-RADS breast composition Category c). There are no significant masses, abnormal calcifications, or other abnormalities. No left breast ultrasound abnormality in the retroareolar region was identified. Results are discussed with the patient at time of visit. MM/MM tomosynthesis diagnostic BI IMPRESSION: No specific mammographic or ultrasound findings to suggest malignancy. ASSESSMENT: BI-RADS 1: Negative RECOMMENDATION: Routine annual mammography screening. This patient's information was entered into a reminder system with a target due date for their next mammogram.
== END 2021-07-25 00:01 | disposition home or self-care (01) ==
LOC: HO.MAMMO
PROVIDERS: Visit Provider Internal Medicine Cardiovascular Disease
DX: N64.4 Mastodynia (principal)
CPT/HCPCS: 76642; 77062; 77066

== ENCOUNTER → 2021-08-07 09:29 | Outpatient (BNVA) | payer MEDICARE, MEDICAID, SELFPAY | PROVIDERS: PCP Family Medicine; Visit Provider Urology | DX: N32.81 Overactive bladder (principal); N39.41 Urge incontinence; R35.1 Nocturia | CPT/HCPCS: 51700; 51701; 51798; 99212 ==

== ENCOUNTER → 2021-08-08 14:29 | Outpatient (BNVA) | payer MEDICARE, MEDICAID, SELFPAY | PROVIDERS: PCP Family Medicine; Visit Provider Urology | DX: N32.81 Overactive bladder (principal) | CPT/HCPCS: 51700; 51701 ==

== ENCOUNTER → 2021-08-11 13:28 | Outpatient (BNVA) | payer MEDICARE, MEDICAID, SELFPAY | PROVIDERS: PCP Family Medicine; Visit Provider Urology | DX: N39.41 Urge incontinence (principal) | CPT/HCPCS: 51700; 51701 ==

== ENCOUNTER → 2021-08-12 13:27 | Outpatient (BNVA) | payer MEDICARE, MEDICAID, SELFPAY | PROVIDERS: PCP Family Medicine; Visit Provider Urology | DX: N32.81 Overactive bladder (principal) | CPT/HCPCS: 51700; 51701 ==

== ENCOUNTER → 2021-08-14 13:30 | Outpatient (BNVA) | payer MEDICARE, MEDICAID, SELFPAY | PROVIDERS: Visit Provider Urology | DX: N32.81 Overactive bladder (principal) | CPT/HCPCS: 51700; 51701 ==

== ENCOUNTER → 2021-08-21 13:08 | Outpatient (BNVA) | payer MEDICARE, MEDICAID, SELFPAY | PROVIDERS: PCP Family Medicine; Visit Provider Urology | DX: N32.81 Overactive bladder (principal) | CPT/HCPCS: 51700; 51701 ==

== ENCOUNTER → 2021-08-28 13:13 | Outpatient (BNVA) | payer MEDICARE, MEDICAID, SELFPAY | PROVIDERS: PCP Family Medicine; Visit Provider Urology | DX: N32.81 Overactive bladder (principal) | CPT/HCPCS: 51700; 51701 ==

== ENCOUNTER → 2021-09-04 13:27 | Outpatient (BNVA) | payer MEDICARE, MEDICAID, SELFPAY | PROVIDERS: PCP Family Medicine; Visit Provider Urology | DX: N30.10 Interstitial cystitis (chronic) without hematuria (principal); N32.81 Overactive bladder | CPT/HCPCS: 51700; 51701 ==

== ENCOUNTER → 2021-09-11 13:28 | Outpatient (BNVA) | payer MEDICARE, MEDICAID, SELFPAY | PROVIDERS: PCP Family Medicine; Visit Provider Urology | DX: N30.10 Interstitial cystitis (chronic) without hematuria (principal); N32.81 Overactive bladder | CPT/HCPCS: 51700; 51701 ==

== ENCOUNTER → 2021-09-18 13:12 | Outpatient (BNVA) | payer MEDICARE, MEDICAID, SELFPAY | PROVIDERS: PCP Family Medicine; Visit Provider Urology | DX: N32.81 Overactive bladder (principal); N39.41 Urge incontinence | CPT/HCPCS: 51700; 51701; 99212 ==

== ENCOUNTER → 2021-11-13 10:28 | Outpatient (BNVA) | payer MEDICARE, MEDICAID, SELFPAY | PROVIDERS: PCP Family Medicine; Visit Provider Urology | DX: N32.81 Overactive bladder (principal) | CPT/HCPCS: 51798 ==

== ENCOUNTER 2021-12-22 14:28 | Outpatient (REF) | payer OTHER, SELFPAY ==
--- NOTE | ~2021-12-22 | XR_ITS ---
EXAMINATION: XR SHOULDER, LEFT CLINICAL INFORMATION: Chronic posterior shoulder pain. COMPARISON: None. TECHNIQUE: AP external rotation, Grashey, scapular Y, and axillary views of the left shoulder. FINDINGS: There is mild reduction in the left AC joint. The glenohumeral joint space is preserved. No visible acute fracture or dislocation is seen. The soft tissues are normal. XR/XR shoulder LT min 2V IMPRESSION: Mild degenerative changes in the left AC joint with periarticular spurring. The glenohumeral joint is unremarkable.
== END 2021-12-22 14:29 | disposition home or self-care (01) ==
LOC: HO.XRAY 14:28
PROVIDERS: PCP Family Medicine; Visit Provider Family Medicine
DX: M25.512 Pain in left shoulder (principal)
CPT/HCPCS: 73030

== ENCOUNTER 2022-01-01 12:19 | Outpatient (REF) | payer OTHER, SELFPAY ==
--- NOTE | ~2022-01-01 | US_ITS ---
EXAMINATION: US ABDOMEN LIMITED CLINICAL INFORMATION: Lumps mid back and right anterior upper abdomen. COMPARISON: None. TECHNIQUE: Real-time imaging of the fat and right upper abdominal wall. FINDINGS: There are 3 solid-appearing slightly echogenic cutaneous lesions in the back measuring 1.5 x 0.7 x 1.1 cm, 0.7 x 0.4 x 0.8 cm and 0.4 x 0.2 x 0.3 cm. These appear nonvascular and may represent small lipomas. No ultrasound abnormality is seen in the abdominal wall of the right upper quadrant. US/US abdomen limited IMPRESSION: Probable small lipomas in the back. No ultrasound abnormality seen in the abdominal wall of the right upper quadrant.
== END 2022-01-01 12:20 | disposition home or self-care (01) ==
LOC: HO.US 12:19
PROVIDERS: Visit Provider Family Medicine
DX: R22.2 Localized swelling, mass and lump, trunk (principal); L72.9 Follicular cyst of the skin and subcutaneous tissue, unspecified
CPT/HCPCS: 76705

== ENCOUNTER → 2022-01-20 12:17 | Outpatient (BNVA) | payer OTHER, SELFPAY | PROVIDERS: PCP Family Medicine; Visit Provider Internal Medicine | DX: J44.9 Chronic obstructive pulmonary disease, unspecified (principal) | CPT/HCPCS: 99212 ==

== ENCOUNTER → 2022-02-04 09:46 | Outpatient (BNVA) | payer OTHER, SELFPAY | PROVIDERS: PCP Family Medicine; Referring Provider Family Medicine; Visit Provider Internal Medicine Cardiovascular Disease | DX: R94.31 Abnormal electrocardiogram [ECG] [EKG] (principal); R00.2 Palpitations; I10 Essential (primary) hypertension | CPT/HCPCS: 93005; 99202 ==

== ENCOUNTER → 2022-02-20 09:39 | Outpatient (REF) | payer OTHER, SELFPAY ==
--- NOTE | 2022-02-20 09:47 | HM_ITS ---
* Total monitoring time 13 days. * Underlying rhythm is sinus. * Average ventricular rate 73/Min. Range 53 to 125/Min. * Very rare PVCs with minimal burden. * Rare PACs with minimal burden. Very brief runs. Longest 21 beats. * No significant bradycardia, pauses or AV blocks. * Patient diary not submitted. MTDD
--- NOTE | 2022-02-20 09:47 | CA_ITS ---
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 There is mildly increased left ventricular wall thickness. The visually estimated ejection fraction is between 55-60%. - Normal right ventricular cavity size and systolic function. - There is no evidence of pericardial effusion. Findings Left Ventricle Normal left ventricular size and systolic function. There is mildly increased left ventricular wall thickness. The visually estimated ejection fraction is between 55-60%. There is no evidence of regional wall motion abnormalities. Diastolic function is normal for age. Right Ventricle Normal right ventricular cavity size and systolic function. Atria The left atrium is normal in size. There is no evidence of interatrial shunt by color Doppler. Aortic Valve Normal aortic valve structure and function. There is no aortic valve stenosis. There is no aortic valve regurgitation. Mitral Valve Normal mitral valve structure and function. There is no mitral valve regurgitation. There is no mitral valve stenosis. Pulmonic Valve The pulmonic valve is likely normal. Tricuspid Valve Normal tricuspid valve structure and function. There is no tricuspid valve regurgitation. Tricuspid regurgitation envelope is inadequate for calculation of right ventricular systolic pressure. Normal right atrial pressure. Great Vessels There is mild dilatation of the ascending aorta. The visualized portions of the pulmonary artery and branches are normal. Venous The inferior vena cava is normal in size and collapses greater than 50% with inspiration. Pericardium/Pleural There is no evidence of pericardial effusion. Measurements 2D Linear Measurements IVSd: 1.12 0.6-0.9/0.6-1.0 cm LVIDd: 4.43 3.9-5.3/4.2-5.9 cm LVIDd Index: 2.58 2.4-3.2/2.2-3.1 cm/m2 LVIDs: 3.01 2.0-3.6 cm LVPWd: 1.07 0.7-1.1 cm LA Diam: 3.00 2.7-3.8/3.0-4.0 cm LAIDs Index: 1.74 1.5-2.3 cm/m2 LV Mass: 211.31 67-162/88-224 g LV Mass Index: 122.85 43-95/49-115 g/m2 LVOT Diam: 2.30 3.0+(-)1.3 cm 2D Systolic Function EF 4C: 56.50 >55% EF 2C: 61.50 >55% EF BiP: 59.40 >55% Mitral Valve MV Pk E: 0.32 MV PK A: 0.55 MV Decel Time: 276.00 E/A: 0.60 E'Lateral: 8.38 E'Medial: 5.44 E/E' Med: 5.90 E/E' Lat: 3.80 PHT: 81.00 MVA PHT: 2.72 Decel Nuckolls: 1.17 Aortic Valve AoV Pk Abel: 1.05 AoV Mn Abel: 0.79 AoV VTI: 0.20 AoV Pk Grad: 4.00 Aov Mn Grad: 3.00 FARTUN Cont.VTI: 3.10 LVOT LVOT Pk Abel: 0.77 LVOT Mn Abel: 0.47 LVOT VTI: 0.15 LVOT Pk Grad: 2.00 LVOT Mn Grad: 1.00 LVOT Diam: 2.30 LVOT Area: 4.15 Diastolic Function MV Pk E: 0.32 MV Pk A: 0.55 E/A: 0.60 E'Medial: 5.44 E/E' Med: 5.90 E' Laterial: 8.38 E/E' Lat: 3.80 Right Ventricle TAPSE (mm): 16.60 TVS' Abel: 8.38 Tricuspid Valve RA Press: 3.00 Great Vessels Aorta Sinus of Valsalva: 3.54 2.0-3.[address] [place]: 2.56 1.7-3.4 cm Ao Asc: 3.70 2.1-3.4 cm Updated in Other Vendor System with Status of Final Ian He MD electronically signed on 02/23/2022 4:07:02 PM with status of Final
== END ==
LOC: HO.CARD 09:39
PROVIDERS: Visit Provider Internal Medicine Cardiovascular Disease
DX: R00.2 Palpitations (principal); R94.31 Abnormal electrocardiogram [ECG] [EKG]
CPT/HCPCS: 93246; 93306

== ENCOUNTER → 2022-04-15 12:27 | Outpatient (BNVA) | payer OTHER, SELFPAY | PROVIDERS: PCP Family Medicine; Referring Provider Family Medicine; Visit Provider Internal Medicine Cardiovascular Disease | DX: R00.2 Palpitations (principal); I10 Essential (primary) hypertension; I83.90 Asymptomatic varicose veins of unspecified lower extremity | CPT/HCPCS: 99212 ==

== ENCOUNTER → 2022-05-28 11:28 | Outpatient (BNVA) | payer OTHER, SELFPAY | PROVIDERS: PCP Family Medicine; Visit Provider Surgery Vascular Surgery | DX: I83.12 Varicose veins of left lower extremity with inflammation (principal) | CPT/HCPCS: 99202 ==

== ENCOUNTER 2022-06-19 09:39 | Outpatient (REF) | payer OTHER, SELFPAY ==
--- NOTE | ~2022-06-19 | US_ITS ---
EXAMINATION: RIGHT and LEFT LOWER EXTREMITY VENOUS ULTRASOUND (Reflux Exam) CLINICAL INDICATION: leg pain and varicose veins. COMPARISON: None. TECHNIQUE: Color flow triplex imaging and compression Doppler was performed to evaluate both the deep and the superficial systems bilaterally. To evaluate the superficial system, the examination was performed in the upright position. Color-flow Doppler ultrasound and compression ultrasound were utilized. In addition, maneuvers were utilized to demonstrate reflux. FINDINGS: 1. DEEP VENOUS ULTRASOUND OF THE RIGHT LOWER EXTREMITY: Respiratory variation, normal compression and augmented flow are noted in the right common femoral vein as well as the right popliteal vein and there is no evidence of deep venous thrombosis at these locations. There is no evidence of reflux in the deep system in either the common femoral vein or the popliteal vein. There is no evidence of a Eng's cyst. 2. SUPERFICIAL ULTRASOUND WITH DOPPLER OF RIGHT LOWER EXTREMITY: The right great saphenous vein at the saphenofemoral junction measures 9 mm, at the mid thigh 3 mm, efstw-htu-cwli 3 mm, zfxio-[id number] 2 mm, at mid calf 3 mm and at the ankle measures 3 mm. There is no reflux demonstrated in the right great saphenous vein. The right small saphenous vein measures 2-3 mm and demonstrates 2.2 seconds reflux in the mid calf. There is a warp knit operator arising from the distal lesser saphenous vein that measures 5 mm and no reflux. There is a warp knit operator 29 cm from the calcaneus that measures 4 mm and demonstrates 0.7 second reflux. There is a warp knit operator arising from the greater saphenous vein in the calf that measures 2 mm and does not demonstrate reflux. There is a varicosity arising from the distal lesser saphenous vein that measures 3 mm and does not demonstrate reflux. There is a varicosity in the proximal thigh that communicate with the greater saphenous vein measuring 4 mm that demonstrates 2.9 seconds reflux. 3. DEEP VENOUS ULTRASOUND OF THE LEFT LOWER EXTREMITY: Respiratory variation, normal compression and augmented flow are noted in the left common femoral vein as well as the left popliteal vein and there is no evidence of deep venous thrombosis at these locations. There is no evidence of reflux in the deep system in either the common femoral vein or the popliteal vein. . There is no evidence of a Eng's cyst. 4. SUPERFICIAL ULTRASOUND WITH DOPPLER OF LEFT LOWER EXTREMITY: Left great saphenous vein at the saphenofemoral junction measures 6 mm, at the mid thigh not seen, eokxh-beo-hicn not seen, amtxs-lvs-asyn 2 mm, at mid calf 3 mm and at the ankle measures 2 mm. There is no reflux demonstrated in the left great saphenous vein. The left small saphenous vein measures 1-6 mm and shows no reflux. There is a warp knit operator in the calf that communicates with the greater saphenous vein at measures 2 mm without reflux. US/US venous duplex LE BI IMPRESSION: 1. No evidence of reflux or thrombus in the common femoral veins or popliteal veins bilaterally. 2. Right left lesser saphenous vein reflux.
== END 2022-06-19 09:40 | disposition home or self-care (01) ==
LOC: HO.US 09:39
PROVIDERS: PCP Family Medicine; Visit Provider Surgery Vascular Surgery
DX: I83.893 Varicose veins of bilateral lower extremities with other complications (principal)
CPT/HCPCS: 93970

== ENCOUNTER 2022-06-30 12:34 | Inpatient (IN) | payer OTHER, SELFPAY ==
[2022-06-30] VITALS (7 sets, daily range): BP systolic 106–151; BP diastolic 60–73; PULSE 72–119; RESP 17–20; TEMP 37.1–37.7; O2SAT 85–96; BMI 33.6; BMI 33.8
--- NOTE | ~2022-06-30 | XR_ITS ---
EXAMINATION: XR CHEST CLINICAL INFORMATION: Hypoxia. COMPARISON: Chest x-ray 02/07/2021 TECHNIQUE: 2 views of the chest were obtained. FINDINGS: The lungs are well-expanded with patchy opacity left upper lobe posterior segment likely developing infiltrate,. Rest of lungs are clear. Mild increased pulmonary vascularity is noted question mild congestion. Heart size is borderline normal. There is mild scoliosis. XR/XR chest 2V IMPRESSION: Left upper lobe patchy opacity likely developing infiltrate. This finding is new compared to previous study 02/07/2021 Mild increased vascularity question mild vascular congestion
[2022-06-30 13:14] LABS: MANUAL DIFF FLAG NO
[2022-06-30 13:20] LABS: Basophils Percent Auto 0.2 % (0-2); Eosinophils Percent Auto 0.3 % (0-4); Hematocrit 42.7 % (37.0-47.0); Imm Gran Abs Auto 0.04 X10*3/uL (0.00-0.03); Imm Gran Pct Auto 0.4 % (0.0-0.4); Lymphocytes Absolute Auto 1.6 X10*3/uL (1.2-4.9); Lymphocytes Percent Auto 14.2 % (20-40); Mean Corpuscular HGB Conc 32.8 g/dl (31.0-35.0); Mean Corpuscular Hemoglobin 29.6 pg (27.0-33.0); Mean Corpuscular Volume 90.3 fL (80.0-98.0); Mean Platelet Volume 11.3 fL (9.4-12.3); Monocytes Absolute Auto 0.8 X10*3/uL (0.1-1.2); Monocytes Percent Auto 6.7 % (2-11); Neutrophils Absolute Auto 8.9 x10*3/uL (2.0-8.3); Neutrophils Percent Auto 78.2 % (45-73); Platelet Count 219 X10*3/uL (160-400); Red Blood Count 4.73 X10*6/uL (4.20-5.50); Red Cell Distribution Width 12.9 % (11.0-16.0); White Blood Count 11.3 X10*3/uL (4.8-10.8)
[2022-06-30 13:42] LABS: COVID-19 Test Negative (Negative); IDNOW Serial# 55D5AD1C
[2022-06-30 13:49] LABS: Alanine Aminotransferase 14 U/L (0-31); Albumin Level 4.1 g/dL (3.5-5.0); Alkaline Phosphatase 77 U/L (39-117); Anion Gap 13 (12-20); Aspartate Amino Transferase 11 U/L (5-31); Bilirubin Total 0.8 mg/dL (0.0-1.0); Blood Urea Nitrogen 16 mg/dL (9-16); Calcium 9.7 mg/dL (8.4-10.2); Carbon Dioxide 29 mmol/L (22-29); Chloride 102 mmol/L (96-108); Creatinine Clr Calc Pharmacy 56.5; Estimated Glomerular Filt Rate > 60; Glucose Random 185 mg/dL (60-115); Potassium 4.2 mmol/L (3.3-5.1); Sodium 140 mmol/L (135-145)
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
[2022-06-30 14:15] LABS: Venous Blood Gas Refer to POC result
[2022-06-30 14:18] LABS: VBG Base Excess 7.5 mmol/L; VBG HCO3 33 mmol/L (22-26); VBG pCO2 52 mmHg; VBG pH 7.41 (7.32-7.43); VBG pO2 34 mmHg
[2022-06-30] MEDS: cefTRIAXone sodium 1 GM in 0.9 % Sodium Chloride 50 ML IV (14:20)
[2022-06-30] MEDS: 0.9 % Sodium Chloride 1,000 ML 999 ML IVCONT (14:20)
[2022-06-30 14:22] LABS: INTERNATIONAL NORM RATIO 1.2 (0.9-1.1); Prothrombin Time 13.4 SEC (10.0-13.1)
[2022-06-30 14:39] LABS: B Type Natriuretic Peptide < 10 pg/mL (<100)
--- NOTE | 2022-06-30 14:52 | P.HPHOSP_ITS ---
History of Present Illness Date of Service: 06/30/22 Attending physician on admission: Jw Frederick Chief Complaint: sob 76-year-old woman presents to the ER with complaints of worsening cough, fever, chills and body aches over the last 3 days. She denies recent illness, sick contacts, recent travel. She reports that she lives alone and she barely leaves the house. She went to see her primary care provider today and was noted to have an oxygen saturation of 88% while in the office and was sent to the emergency room for further follow-up. She was noted to be hypoxic with oxygen saturation of 85% on room air, mildly elevated white blood cell count of 11.3. Chest x-ray showing left lower lobe patchy opacity likely developing infiltrate. In the ER she was given normal saline, ceftriaxone, azithromycin. She will be admitted for further management and treatment of community-acquired pneumonia Review of Systems Review of Systems: Denies any recent fever chills or decrease in appetite respiratory reports cough cardiovascular denies chest pain gastrointestinal denies any dysphagia abdominal pain nausea vomiting or diarrhea genitourinary denies any dysuria frequency or hematuria musculoskeletal diffuse body soreness neuropsych denies any weakness or seizures all other systems reviewed are negative [facility] Medical History (Updated 06/30/22 @ 15:11 by Coni Light NP) Abdominal hyperesthesia Allergic rhinitis Altered bowel habits Arthritis Asthma Back pain Brain aneurysm Bronchial asthma Calculus of gallbladder COPD (chronic obstructive pulmonary disease) Cubital tunnel syndrome Depression DM II (diabetes mellitus, type II), controlled Dyspepsia Gallstone pancreatitis Hemorrhoids Hx of cardiomyopathy Hyperlipidemia Hypothyroidism LBBB (left bundle branch block) Lipoma of other skin and subcutaneous tissue Migraine headache Restrictive airway disease Rotator cuff tear arthropathy of right shoulder Subacromial bursitis Subacromial impingement Urge incontinence Venous insufficiency Family History Son Hypertension Brother Colon cancer Surgical History H/O craniotomy History of cardiac catheterization History of shoulder surgery History of total left knee replacement History of total right knee replacement Hx of colonoscopy S/P surgical manipulation of knee joint Social History Are you a primary career development manager to a significant other at home: No Do you presently have visiting nurse or other home services: Yes ([employer]) Alcohol intake: never Patient Tobacco Use Status: Former Tobacco user Quit Date: 1999 Tobacco use type: Cigarette Smoked in Last 30 Days: No Use of substances other than those prescribed or required for medical reasons: No Advance Directives: No Advance Directives Information Provided: Yes Nutrition Risks: No Nutritional Risk Meds Allergies Allergy/AdvReac Type Severity Reaction Status Date / Time white fish Allergy Intermediate body Uncoded 05/28/22 11:33 swelling, redness Active Medications: Current Medications Azithromycin 500 mg/ Sodium (Chloride) 250 mls @ 125 mls/hr IV ONCE ONE Stop: 06/30/22 15:51 Pharmacy Consult (Consult Rx Perform Med Rec) 1 each MISCELLANE ONCE PRN PRN Reason: Consult order Home Medications Medication Instructions Recorded Confirmed Last Taken Type albuterol sulfate 90 mcg/actuation 2 puff inhalation Q4-6H PRN 04/02/20 06/30/22 Unknown History aerosol inhaler (ProAir HFA) Shortness Of Breath Or Wheezing aspirin 81 mg tablet,delayed 81 mg PO DAILY 04/02/20 06/30/22 04/25/20 History release atorvastatin 40 mg tablet 40 mg PO BEDTIME 04/02/20 06/30/22 Unknown History multivitamin (Multiple Vitamins 1 tab PO DAILY 04/02/20 06/30/22 Unknown History tablet) blood sugar diagnostic (Poll Me LtdTouch #10 ea 11/29/20 04/15/22 Unknown History Ultra Test strips) lancets 33 gauge (Poll Me LtdTouch Delica #100 ea 11/29/20 04/15/22 Unknown History Plus Lancet) levothyroxine 88 mcg tablet 88 mcg PO DAILY@0600 11/29/20 06/30/22 12/16/20 History magnesium oxide 400 mg (241.3 mg 400 mg PO .Q48H@2100 11/29/20 06/30/22 Unknown History magnesium) tablet albuterol sulfate 2.5 mg/3 mL 1 amp inhalation Q4-6H PRN dyspnea 12/11/20 06/30/22 Unknown History (0.083 %) solution for nebulization acetaminophen 500 mg capsule 1,000 mg PO Q8H PRN Fever Or Pain 03/04/21 06/30/22 Unknown History (Mapap (acetaminophen)) pantoprazole 40 mg tablet,delayed 40 mg PO DAILY@0630 03/04/21 06/30/22 Unknown History release alendronate 70 mg tablet 70 mg PO QWEEK 01/20/22 06/30/22 Unknown History amlodipine 2.5 mg tablet 2.5 mg PO DAILY 02/04/22 06/30/22 Unknown History metformin 500 mg tablet,extended 1,000 mg PO BID@1300,1900 02/04/22 06/30/22 Unknown History release 24 hr melatonin 3 mg tablet 3 mg PO BEDTIME 04/15/22 06/30/22 Unknown History montelukast 10 mg tablet 10 mg PO BEDTIME 05/28/22 06/30/22 Unknown History metoprolol tartrate 25 mg tablet 25 mg PO BID 06/30/22 06/30/22 Unknown History Physical Exam Vital Signs and Narrative: Vital Signs: Last Vital Signs Temp 99.8 F 06/30/22 12:48 Pulse 109 H 06/30/22 12:48 Resp 18 06/30/22 12:48 BP 133/72 06/30/22 12:48 Pulse Ox 85 L 06/30/22 13:52 O2 Del Method Room Air 06/30/22 13:52 Oxygen Flow Rate 3 06/30/22 12:48 BMI result Body Mass Index 33.6 Appearing in no acute distress head is normocephalic atraumatic eyes pupils are PERRLA sclera is anicteric mouth throat mucous membranes are intact and moist neck is supple no lymphadenopathy, no JVD noted lung sounds are clear to auscultation, no wheezing heart regular rate rhythm, clear S1, S2 positive bowel sounds, abdomen is soft, nontender neuro patient is alert x3, no focal deficits Results Labs 06/30/22 13:11 06/30/22 13:11 Labs: Laboratory Results - last 24 hr 06/30/22 06/30/22 06/30/22 13:11 13:11 13:11 MCV 90.3 MCH 29.6 MCHC 32.8 RDW 12.9 Plt Count 219 MPV 11.3 Immature Gran % (Auto) 0.4 Neut % (Auto) 78.2 H Lymph % (Auto) 14.2 L [place] % (Auto) 6.7 Eos % (Auto) 0.3 Baso % (Auto) 0.2 Lymph # (Auto) 1.6 [place] # (Auto) 0.8 Eos # (Auto) 0.0 Baso # (Auto) 0.0 Abs Immat Gran (auto) 0.04 H Absolute Neuts (auto) 8.9 H Absolute Nucleated RBC 0.000 Nucleated RBC % (auto) 0.0 PT INR VBG pH VBG pCO2 VBG pO2 VBG HCO3 VBG O2 Saturation VBG Base Excess Anion Gap 13 Estim Creat Clear Calc 56.5 Estimated GFR > 60 Random Glucose 185 H Lactic Acid Calcium 9.7 D Total Bilirubin 0.8 AST 11 ALT 14 Alkaline Phosphatase 77 B-Natriuretic Peptide Total Protein 7.0 Albumin 4.1 COVID-19 (JAMES) Negative COVID-19 Clin Com See Note 06/30/22 06/30/22 06/30/22 14:08 14:08 14:09 MCV MCH MCHC RDW Plt Count MPV Immature Gran % (Auto) Neut % (Auto) Lymph % (Auto) [place] % (Auto) Eos % (Auto) Baso % (Auto) Lymph # (Auto) [place] # (Auto) Eos # (Auto) Baso # (Auto) Abs Immat Gran (auto) Absolute Neuts (auto) Absolute Nucleated RBC Nucleated RBC % (auto) PT 13.4 H INR 1.2 H VBG pH VBG pCO2 VBG pO2 VBG HCO3 VBG O2 Saturation VBG Base Excess Anion Gap Estim Creat Clear Calc Estimated GFR Random Glucose Lactic Acid 1.0 Calcium Total Bilirubin AST ALT Alkaline Phosphatase B-Natriuretic Peptide < 10 Total Protein Albumin COVID-19 (JAMES) COVID-Gifts that Give Clin Com 06/30/22 14:11 MCV MCH MCHC RDW Plt Count MPV Immature Gran % (Auto) Neut % (Auto) Lymph % (Auto) [place] % (Auto) Eos % (Auto) Baso % (Auto) Lymph # (Auto) [place] # (Auto) Eos # (Auto) Baso # (Auto) Abs Immat Gran (auto) Absolute Neuts (auto) Absolute Nucleated RBC Nucleated RBC % (auto) PT INR VBG pH 7.41 VBG pCO2 52 VBG pO2 34 VBG HCO3 33 H VBG O2 Saturation 51.0 VBG Base Excess 7.5 Anion Gap Estim Creat Clear Calc Estimated GFR Random Glucose Lactic Acid Calcium Total Bilirubin AST ALT Alkaline Phosphatase B-Natriuretic Peptide Total Protein Albumin COVID-19 (JAMES) COVID-19 Clin Com Imaging Radiologist's Impressions: Impressions Chest X-Ray 06/30/22 13:05 IMPRESSION: Left upper lobe patchy opacity likely developing infiltrate. This finding is new compared to previous study 02/07/2021 Mild increased vascularity question mild vascular congestion Assessment and Plan (1) Pneumonia: Status: Acute Plan 76 year old women admitted with SOB secondary to COPD exacerbation and CAP Acute hypoxic respiratory failure secondary to CAP Noted hypoxia of 85% Chest x-ray showing left upper lobe patchy opacity Continue supplemental oxygen Schedule DuoNebs, no wheezing noted, will hold off on steroids for now. Rocephin and azithromycin Follow blood cultures Hypertension Stable blood pressure Continue home medications Hypothyroidism Continue levothyroxine Diabetes mellitus type 2 Sliding scale, ADA diet GERD Continue PPI none DVT prophylaxis with Lovenox Full code Attending Dr. Lopez Patient requires inpatient midnights further treatment of community-acquired pneumonia requiring IV antibiotics, supplemental oxygen for respiratory failure and close monitoring for worsening in respiratory status Time Spent With Patient Time: Total time managing care of this patient today ____ minutes. Quality Stroke Does the patient have a stroke diagnosis?: No VTE Prior VTE?: No VTE Risk Level:: Medical - moderate - high VTE Device Contraindication: Treatment Not Indicated VTE Drug Contraindication: N/A - Med Ordered
[2022-06-30] MEDS: Azithromycin 500 MG in 0.9 % Sodium Chloride 250 ML 125 MG IV (15:05)
--- NOTE | 2022-06-30 15:08 | PHA.MEDREC ---
Pharmacy Consult ? Medication Reconciliation Pharmacy has completed the medication reconciliation. Med rec complete using list provided by pcp office.
[2022-06-30] MEDS: Enoxaparin Sodium 40 MG/0.4 ML SYRINGE SUBCUT (15:38)
[2022-06-30] MEDS: 0.9 % Sodium Chloride Flush 3 ML SYRINGE IVFLUSH ×2 (15:39→21:04)
--- NOTE | 2022-06-30 15:56 | PC.NURSE ---
Pt lying in stretcher, airway open and patent, no diff breathing, no obvious signs of distress. A&ox4, skin normal for ethnicity, warm, and dry. Lung sounds clr and equal bilaterally. No edema noted. Pt o2 sats dropped with exertion to 93% [facility], pt on oxygen 3 lmp via nasal cannula. Pt complaining of left sided chest pain with a cough.
[2022-06-30 18:16] LABS: Glucose, Whole Blood 202 mg/dL (60-115)
[2022-06-30] MEDS: Insulin Lispro 100 UNIT/ML 3 ML VIAL SUBCUT ×2 (18:21→21:04)
--- NOTE | 2022-06-30 19:13 | PC.NURSE ---
assisted to bedside commode, back to stretcher and repositioned for comfort. pt remains on continuous o2 via nasal cannula, sob with exertion upon stand/pivot to commode.
--- NOTE | 2022-06-30 19:40 | PC.NURSE ---
report called to Enriqueta SANTILLAN . patient to go to bed [address] [facility] [place].
[2022-06-30 20:23] LABS: Glucose, Whole Blood 165 mg/dL (60-115)
[2022-06-30] MEDS: Atorvastatin Calcium 40 MG TABLET PO (21:03)
[2022-06-30] MEDS: Metoprolol Tartrate 25 MG TABLET PO (21:03)
[2022-06-30] MEDS: Magnesium Oxide 400 MG TABLET PO (21:04)
[2022-06-30] MEDS: Montelukast Sodium 10 MG TABLET PO (21:04)
[2022-06-30] MEDS: Melatonin 3 MG TABLET PO (21:04)
[2022-07-01] VITALS (9 sets, daily range): BP systolic 119–133; BP diastolic 60–67; PULSE 62–83; RESP 16–20; TEMP 36.3–37; O2SAT 84–95
[2022-07-01] MEDS: Omeprazole 20 MG CAPSULE.DR PO (05:52)
[2022-07-01] MEDS: Levothyroxine Sodium 88 MCG TABLET PO (05:52)
[2022-07-01 06:08] LABS: MANUAL DIFF FLAG NO
[2022-07-01 06:17] LABS: Basophils Percent Auto 0.4 % (0-2); Eosinophils Absolute Auto 0.1 X10*3/uL (0.0-0.4); Eosinophils Percent Auto 1.7 % (0-4); Hematocrit 37.4 % (37.0-47.0); Hemoglobin 12.2 g/dl (12.0-16.0); Imm Gran Abs Auto 0.03 X10*3/uL (0.00-0.03); Imm Gran Pct Auto 0.4 % (0.0-0.4); Lymphocytes Absolute Auto 2.1 X10*3/uL (1.2-4.9); Lymphocytes Percent Auto 30.2 % (20-40); Mean Corpuscular HGB Conc 32.6 g/dl (31.0-35.0); Mean Corpuscular Volume 92.1 fL (80.0-98.0); Mean Platelet Volume 11.5 fL (9.4-12.3); Monocytes Absolute Auto 0.6 X10*3/uL (0.1-1.2); Monocytes Percent Auto 8.8 % (2-11); Neutrophils Percent Auto 58.5 % (45-73); Platelet Count 198 X10*3/uL (160-400); Red Blood Count 4.06 X10*6/uL (4.20-5.50); Red Cell Distribution Width 13.1 % (11.0-16.0); White Blood Count 6.9 X10*3/uL (4.8-10.8)
[2022-07-01 06:33] LABS: Estimated Average Glucose 157 mg/dL; Hemoglobin A1c % 7.1 %
[2022-07-01 06:41] LABS: Anion Gap 11 (12-20); Blood Urea Nitrogen 14 mg/dL (9-16); Calcium 8.8 mg/dL (8.4-10.2); Carbon Dioxide 30 mmol/L (22-29); Chloride 104 mmol/L (96-108); Creatinine Clr Calc Pharmacy 65.2; Estimated Glomerular Filt Rate > 60; Glucose Random 184 mg/dL (60-115); Potassium 4.4 mmol/L (3.3-5.1); Sodium 141 mmol/L (135-145)
[2022-07-01 07:23] LABS: Glucose, Whole Blood 194 mg/dL (60-115)
[2022-07-01] MEDS: Albuterol Sulfate (0.083%) 2.5 MG/3 ML VIAL.NEB INHALE ×4 (07:51→20:11)
[2022-07-01] MEDS: 0.9 % Sodium Chloride Flush 3 ML SYRINGE IVFLUSH ×2 (07:52→15:16)
[2022-07-01] MEDS: Insulin Lispro 100 UNIT/ML 3 ML VIAL SUBCUT ×4 (07:52→21:15)
[2022-07-01] MEDS: Metoprolol Tartrate 25 MG TABLET PO ×2 (07:53→21:15)
[2022-07-01] MEDS: Aspirin Enteric Coated 81 MG TABLET.DR PO (07:53)
[2022-07-01] MEDS: Multivitamin TABLET 1 TAB PO (07:53)
--- NOTE | 2022-07-01 08:50 | HO.PM.IMPN ---
Subjective Subjective Date of Service: 07/01/22 Interval History: patient seen and examined at bedside. She is feeling significantly better. She is still requiring about 2 L of oxygen but reports no cough at this time, no fever or chills overnight. No abdominal pain nausea or vomiting, no diarrhea constipation, no urinary symptoms. Review of Systems Review of Systems: Yes all other systems are reviewed and are negative Physical Exam Vital Signs: Vital Signs: Last Vital Signs Temp 97.3 F 07/01/22 07:01 Pulse 77 07/01/22 07:55 Resp 18 07/01/22 07:55 BP 133/60 07/01/22 07:01 Pulse Ox 92 07/01/22 07:01 O2 Del Method Nasal Cannula 07/01/22 07:01 O2 Flow Rate 3 07/01/22 07:01 Oxygen Flow Rate 3 06/30/22 12:48 BMI result Body Mass Index 33.8 Const: Other: Alert, oriented x3 Resp: Other: lung sounds clear to auscultation Cardio: Other: normal rate and rhythm GI: Other: abdomen is soft, nontender Extrem: Other: no lower extremity edema Objective Data Active Medications Acetaminophen (Acetaminophen 325 Mg Tablet) 650 mg PO Q6H PRN PRN Reason: Pain, Mild (Pain Scale 1-3) Albuterol Sulfate (Albuterol Sulfate (0.083%) 2.5 Mg/3 Ml Vial.Neb) 2.5 mg INHALE RQ4H WHILE AWAKE [facility] Last Admin: 07/01/22 07:51 Dose: 2.5 mg Documented By: GAVIN Aspirin (Aspirin Enteric Coated 81 Mg Tablet.) 81 mg PO DAILY [facility] Last Admin: 07/01/22 07:53 Dose: 81 mg Documented By: DONN Atorvastatin Calcium (Atorvastatin Calcium 40 Mg Tablet) 40 mg PO BEDTIME [facility] Last Admin: 06/30/22 21:03 Dose: 40 mg Documented By: DAYLIN Enoxaparin Sodium (Enoxaparin Sodium 40 Mg/0.4 Ml Syringe) 40 mg SUBCUT Q24H [facility] Last Admin: 06/30/22 15:38 Dose: 40 mg Documented By: ROSSI Fluticasone/Vilanterol (Fluticasone/Vilanterol 100/25 Blst.W.Dev) 1 puff INHALE RDAILY [facility] Glucose (Glucose Gel 15 Gm Gel..Gram.) 15 gm PO Q15M PRN; Protocol PRN Reason: per Hypoglycemia Standing Ord. Dextrose (D10) 250 mls @ 750 mls/hr IV Q15M PRN; Protocol PRN Reason: per Hypoglycemia Standing Ord. Ceftriaxone Sodium 1 gm/ (Sodium Chloride) 50 mls @ 100 mls/hr IV Q24H [facility] Azithromycin 500 mg/ Sodium (Chloride) 250 mls @ 125 mls/hr IV Q24H [facility] Insulin Human Lispro (Insulin Lispro 100 Unit/Ml 3 Ml Vial) 0 unit SUBCUT QIDACHS [facility]; Protocol Last Admin: 07/01/22 07:52 Dose: 2 unit Documented By: DONN Levothyroxine Sodium (Levothyroxine Sodium 88 Mcg Tablet) 88 mcg PO DAILY@0600 [facility] Last Admin: 07/01/22 05:52 Dose: 88 mcg Documented By: DAYLIN Magnesium Oxide (Magnesium Oxide 400 Mg Tablet) 400 mg PO Q48H [facility] Last Admin: 06/30/22 21:04 Dose: 400 mg Documented By: DAYLIN Melatonin (Melatonin 3 Mg Tablet) 3 mg PO BEDTIME [facility] Last Admin: 06/30/22 21:04 Dose: 3 mg Documented By: DAYLIN Metoprolol Tartrate (Metoprolol Tartrate 25 Mg Tablet) 25 mg PO BID [facility]; Protocol Last Admin: 07/01/22 07:53 Dose: 25 mg Documented By: DONN Montelukast Sodium (Montelukast Sodium 10 Mg Tablet) 10 mg PO BEDTIME [facility] Last Admin: 06/30/22 21:04 Dose: 10 mg Documented By: DAYLIN Multivitamins/Vitamin C (Multivitamin Tablet) 1 tab PO DAILY [facility] Last Admin: 07/01/22 07:53 Dose: 1 tab Documented By: DONN Omeprazole (Omeprazole 20 Mg Capsule.) 20 mg PO DAILY@0630 [facility] Last Admin: 07/01/22 05:52 Dose: 20 mg Documented By: DAYLIN Ondansetron HCl (Ondansetron Hcl 4 Mg/2 Ml Vial) 4 mg IVPUSH Q8H PRN PRN Reason: Nausea and Vomiting Pharmacy Consult (Consult Rx Perform Med Rec) 1 each MISCELLANE ONCE PRN PRN Reason: Consult order Sodium Chloride (0.9 % Sodium Chloride Flush 3 Ml Syringe) 3 ml IVFLUSH QSHIFT [facility] Last Admin: 07/01/22 07:52 Dose: 3 ml Documented By: DONN Labs 07/01/22 05:42 07/01/22 05:42 Labs: Laboratory Results - last 24 hr 06/30/22 06/30/22 06/30/22 13:11 13:11 13:11 MCV 90.3 MCH 29.6 MCHC 32.8 RDW 12.9 Plt Count 219 MPV 11.3 Immature Gran % (Auto) 0.4 Neut % (Auto) 78.2 H Lymph % (Auto) 14.2 L [place] % (Auto) 6.7 Eos % (Auto) 0.3 Baso % (Auto) 0.2 Lymph # (Auto) 1.6 [place] # (Auto) 0.8 Eos # (Auto) 0.0 Baso # (Auto) 0.0 Abs Immat Gran (auto) 0.04 H Absolute Neuts (auto) 8.9 H Absolute Nucleated RBC 0.000 Nucleated RBC % (auto) 0.0 PT INR VBG pH VBG pCO2 VBG pO2 VBG HCO3 VBG O2 Saturation VBG Base Excess Anion Gap 13 Estim Creat Clear Calc 56.5 Estimated GFR > 60 POC Glucose Random Glucose 185 H Estimat Average Glucose Hemoglobin A1c % Lactic Acid Calcium 9.7 D Total Bilirubin 0.8 AST 11 ALT 14 Alkaline Phosphatase 77 B-Natriuretic Peptide Total Protein 7.0 Albumin 4.1 COVID-19 (JAMES) Negative COVID-19 Clin Com See Note 06/30/22 06/30/22 06/30/22 14:08 14:08 14:09 MCV MCH MCHC RDW Plt Count MPV Immature Gran % (Auto) Neut % (Auto) Lymph % (Auto) [place] % (Auto) Eos % (Auto) Baso % (Auto) Lymph # (Auto) [place] # (Auto) Eos # (Auto) Baso # (Auto) Abs Immat Gran (auto) Absolute Neuts (auto) Absolute Nucleated RBC Nucleated RBC % (auto) PT 13.4 H INR 1.2 H VBG pH VBG pCO2 VBG pO2 VBG HCO3 VBG O2 Saturation VBG Base Excess Anion Gap Estim Creat Clear Calc Estimated GFR POC Glucose Random Glucose Estimat Average Glucose Hemoglobin A1c % Lactic Acid 1.0 Calcium Total Bilirubin AST ALT Alkaline Phosphatase B-Natriuretic Peptide < 10 Total Protein Albumin COVID-19 (JAMES) COVID-19 [place] 06/30/22 06/30/22 06/30/22 14:11 18:13 20:17 MCV MCH MCHC RDW Plt Count MPV Immature Gran % (Auto) Neut % (Auto) Lymph % (Auto) [place] % (Auto) Eos % (Auto) Baso % (Auto) Lymph # (Auto) [place] # (Auto) Eos # (Auto) Baso # (Auto) Abs Immat Gran (auto) Absolute Neuts (auto) Absolute Nucleated RBC Nucleated RBC % (auto) PT INR VBG pH 7.41 VBG pCO2 52 VBG pO2 34 VBG HCO3 33 H VBG O2 Saturation 51.0 VBG Base Excess 7.5 Anion Gap Estim Creat Clear Calc Estimated GFR POC Glucose 202 H 165 H Random Glucose Estimat Average Glucose Hemoglobin A1c % Lactic Acid Calcium Total Bilirubin AST ALT Alkaline Phosphatase B-Natriuretic Peptide Total Protein Albumin COVID-19 (JAMES) COVID-[employer] 07/01/22 07/01/22 07/01/22 05:42 05:42 05:42 MCV 92.1 MCH 30.0 MCHC 32.6 RDW 13.1 Plt Count 198 MPV 11.5 Immature Gran % (Auto) 0.4 Neut % (Auto) 58.5 Lymph % (Auto) 30.2 [place] % (Auto) 8.8 Eos % (Auto) 1.7 Baso % (Auto) 0.4 Lymph # (Auto) 2.1 [place] # (Auto) 0.6 Eos # (Auto) 0.1 Baso # (Auto) 0.0 Abs Immat Gran (auto) 0.03 Absolute Neuts (auto) 4.0 Absolute Nucleated RBC 0.000 Nucleated RBC % (auto) 0.0 PT INR VBG pH VBG pCO2 VBG pO2 VBG HCO3 VBG O2 Saturation VBG Base Excess Anion Gap 11 L Estim Creat Clear Calc 65.2 Estimated GFR > 60 POC Glucose Random Glucose 184 H Estimat Average Glucose 157 Hemoglobin A1c % 7.1 Lactic Acid Calcium 8.8 D Total Bilirubin AST ALT Alkaline Phosphatase B-Natriuretic Peptide Total Protein Albumin COVID-19 (JAMES) [employer] 07/01/22 06:59 MCV MCH MCHC RDW Plt Count MPV Immature Gran % (Auto) Neut % (Auto) Lymph % (Auto) [place] % (Auto) Eos % (Auto) Baso % (Auto) Lymph # (Auto) [place] # (Auto) Eos # (Auto) Baso # (Auto) Abs Immat Gran (auto) Absolute Neuts (auto) Absolute Nucleated RBC Nucleated RBC % (auto) PT INR VBG pH VBG pCO2 VBG pO2 VBG HCO3 VBG O2 Saturation VBG Base Excess Anion Gap Estim Creat Clear Calc Estimated GFR POC Glucose 194 H Random Glucose Estimat Average Glucose Hemoglobin A1c % Lactic Acid Calcium Total Bilirubin AST ALT Alkaline Phosphatase B-Natriuretic Peptide Total Protein Albumin COVID-19 (JAMES) COVID-19 Clin Com Assessment and Plan (1) Community acquired pneumonia: Status: Acute (2) Acute respiratory failure with hypoxia: Status: Acute Plan this is a 76 year old women admitted with SOB secondary to COPD exacerbation and CAP #Acute hypoxic respiratory failure - secondary to CAP - Noted hypoxia of 85% - currently using 2 L of oxygen - Chest x-ray showing left upper lobe - continue oxygen, titrate as tolerated - Schedule DuoNebs p.r.n., - continue IV antibiotics - cultures negative to date # Hypertension - Stable - Continue home medications # Hypothyroidism Continue levothyroxine # Diabetes mellitus type 2 - Sliding scale, ADA diet # GERD - Continue PPI none DVT prophylaxis with Lovenox Full code Patient requires inpatient midnights further treatment of community-acquired pneumonia requiring IV antibiotics, supplemental oxygen for respiratory failure and close monitoring for worsening in respiratory status Time Spent With Patient Time: Total time managing care of this patient today ____ minutes. Quality Stroke Does the patient have a stroke diagnosis?: No VTE Prior VTE?: No VTE Risk Level:: Medical - moderate - high VTE Device Contraindication: Treatment Not Indicated VTE Drug Contraindication: N/A - Med Ordered
--- NOTE | 2022-07-01 09:49 | MHC.CM.PN ---
CM met with Patient at bedside and addressed IMM with her, providing her with the original and placing a copy on the chart. Patient lives alone in an apartment and she uses a walker to assist with mobility. Patient has a [employer] 3 hours/day and home/resume said services is the goal. CM has initiated and will follow for dc planning. PCP is Dr. Sarai Trejo and Patient has received Covid vax x4.
[2022-07-01 11:08] LABS: Glucose, Whole Blood 247 mg/dL (60-115)
[2022-07-01] MEDS: Fluticasone/Vilanterol 100/25 BLST.W.DEV 1 PUFF INHALE (11:21)
[2022-07-01] MEDS: cefTRIAXone sodium 1 GM in 0.9 % Sodium Chloride 50 ML IV (14:38)
[2022-07-01] MEDS: Azithromycin 500 MG in 0.9 % Sodium Chloride 250 ML 125 MG IV (16:22)
[2022-07-01] MEDS: Enoxaparin Sodium 40 MG/0.4 ML SYRINGE SUBCUT (16:22)
[2022-07-01 16:27] LABS: Glucose, Whole Blood 163 mg/dL (60-115)
[2022-07-01 20:00] LABS: Glucose, Whole Blood 196 mg/dL (60-115)
[2022-07-01] MEDS: Atorvastatin Calcium 40 MG TABLET PO (21:15)
[2022-07-01] MEDS: Melatonin 3 MG TABLET PO (21:15)
[2022-07-01] MEDS: Montelukast Sodium 10 MG TABLET PO (21:15)
[2022-07-02 03:10] VITALS: BP 143/69; PULSE 71; RESP 16; TEMP 36; O2SAT 97
[2022-07-02] MEDS: Levothyroxine Sodium 88 MCG TABLET PO (05:50)
[2022-07-02] MEDS: Omeprazole 20 MG CAPSULE.DR PO (05:50)
[2022-07-02 07:13] VITALS: BP 131/63; PULSE 75; RESP 16; TEMP 36.6; O2SAT 92
[2022-07-02 07:46] LABS: Glucose, Whole Blood 204 mg/dL (60-115)
[2022-07-02] MEDS: Insulin Lispro 100 UNIT/ML 3 ML VIAL SUBCUT (07:57)
[2022-07-02] MEDS: Metoprolol Tartrate 25 MG TABLET PO (07:57)
[2022-07-02] MEDS: amLODIPine Besylate 2.5 MG TABLET PO (07:57)
[2022-07-02] MEDS: Aspirin Enteric Coated 81 MG TABLET.DR PO (07:57)
[2022-07-02] MEDS: 0.9 % Sodium Chloride Flush 3 ML SYRINGE IVFLUSH (07:58)
[2022-07-02] MEDS: Multivitamin TABLET 1 TAB PO (07:58)
--- NOTE | 2022-07-02 09:27 | PM.DS ---
DS: Providers Provider Date of Service: 07/02/22 Date of admission: 06/30/22 15:16 Primary care physician: Sarai Trejo MD DS: Diagnosis Discharge Diagnosis (1) Community acquired pneumonia: Status: Acute (2) Acute respiratory failure with hypoxia: Status: Acute DS: Summary Hospital Course Hospital Course: Chief Complaint: sob 76-year-old woman presents to the ER with complaints of worsening cough, fever, chills and body aches over the last 3 days.? She denies recent illness, sick contacts, recent travel.? She reports that she lives alone and she barely leaves the house.? She went to see her primary care provider today and was noted to have an oxygen saturation of 88% while in the office and was sent to the emergency room for further follow-up.? She was noted to be hypoxic with oxygen saturation of 85% on room air, mildly elevated white blood cell count of 11.3.? Chest x-ray showing left lower lobe patchy opacity likely developing infiltrate.? In the ER she was given normal saline, ceftriaxone, azithromycin.? She will be admitted for further management and treatment of community-acquired pneumonia. Hospital course: Patient presented with Shortness of breath and found to be in acute hypoxic respiratory failure with O2 85 on room air; she was diagnosed community acquired pneumonia by xray and clinically. She was treated with IV Antibiotics (Ceftriaxone and Azithromycin) and quicker than expected recovery, presently sating 93 on room air, breathing comfortably and would very comfortable to go home. She will complete Ceftin 500 mg bid for 17 days and to follow up with PCP on outpatient basis Resume all chronic medications for HTN, Hypothyroidism, Diabetes, GERD. Final diagnoses: 1. Acute hypoxic respiratory failure 2. Community acquired pneumonia Secondary diagnoses: 3. HTN 4. Diabetes 5. Hypothyroidism Time Spent with Patient Time attestation: Total time managing care of this patient today ____ minutes. Discharge coordination time: Greater than 30 minutes Quality: Safe Use of Opioids Does Pt have an Active Cancer Diagnosis on the Problem List?: No Quality: Stroke Does the patient have a stroke diagnosis?: No Physical Exam Vital Signs: Vital Signs: Last Vital Signs Temp 97.8 F 07/02/22 07:13 Pulse 75 07/02/22 07:13 Resp 16 07/02/22 07:13 BP 131/63 07/02/22 07:13 Pulse Ox 92 07/02/22 07:13 O2 Del Method Nasal Cannula 07/02/22 07:13 O2 Flow Rate 2 07/02/22 07:13 Oxygen Flow Rate 3 06/30/22 12:48 BMI result Body Mass Index 33.8 DS: Data Data Completed and Pending Labs on day of discharge: Laboratory Results - last 24 hr 07/01/22 07/01/22 07/01/22 10:55 16:23 19:53 POC Glucose 247 H 163 H 196 H 07/02/22 07:31 POC Glucose 204 H Preliminary micro results at discharge 06/30/22 14:08 Blood Culture - Preliminary Blood - Venous No growth after 24 hours. 06/30/22 14:09 Blood Culture - Preliminary Blood - Venous No growth after 24 hours. Discharge Plan Discharge Anticipated Discharge Date/Time: 07/02/22 09:19 Patient Disposition: Home, Self-Care Discharge Diagnosis: Community-acquired pneumonia Referrals: Sarai Trejo MD [Primary Care Provider] - 1 Week Discharge Medications: New cefuroxime axetil 500 mg tablet 500 mg PO BID 7 Days Qty: 14 0RF Continued fluticasone propion-salmeterol 250-50 mcg/dose blister with device 1 ea inhalation BID Qty: 60 3RF Rx Instructions: rinse mouth after use amlodipine 2.5 mg tablet 2.5 mg PO DAILY albuterol sulfate 2.5 mg /3 mL (0.083 %) solution for nebulization 1 amp inhalation Q4-6H PRN (Reason: dyspnea) metformin 500 mg tablet extended release 24 hr 1,000 mg PO BID@1300,1900 Rx Instructions: after lunch then after dinner metoprolol tartrate 25 mg tablet 25 mg PO BID levothyroxine 88 mcg tablet 88 mcg PO DAILY@0600 (DME) lancets [OneTouch Delica Plus Lancet] 33 gauge misc See Rx Instructions Not Applicable .MEDSUPPLY Qty: 100 Rx Instructions: As directed (DME) OneTouch Ultra Test Strip See Rx Instructions Not Applicable DAILY Qty: 10 Rx Instructions: As directed magnesium oxide 400 mg (241.3 mg magnesium) tablet 400 mg PO .Q48H@2100 albuterol sulfate [ProAir HFA] 90 mcg/actuation HFA aerosol inhaler 2 puff inhalation Q4-6H PRN (Reason: Shortness Of Breath Or Wheezing) atorvastatin 40 mg tablet 40 mg PO BEDTIME aspirin 81 mg tablet,delayed release (DR/EC) 81 mg PO DAILY multivitamin [Multiple Vitamins] Tablet 1 tab PO DAILY Rx Instructions: take with food pantoprazole 40 mg tablet,delayed release (DR/EC) 40 mg PO DAILY@0630 acetaminophen [Mapap (acetaminophen)] 500 mg capsule 1,000 mg PO Q8H PRN (Reason: Fever Or Pain) alendronate 70 mg tablet 70 mg PO QWEEK montelukast 10 mg tablet 10 mg PO BEDTIME melatonin 3 mg tablet 3 mg PO BEDTIME Discharge Orders: Discharge Order (Routine); Ordered 07/02/22 Ordered By: Jw Lopez Diet: Advance to usual diet Activity on Discharge: As tolerated Stand Alone Forms: Patient Portal Discharge page Care Plan Goals: Full recovery from pneumonia Health Concerns: pneumonia Plan of Treatment: Take Cefuroxime (antibiotics) as recommended for pneumonia and follow up with your Doctor in a week Assessment: as above
--- NOTE | 2022-07-02 09:31 | MHC.CM.PN ---
DP: PT HAS BEEN MEDICALLY CLEARED FOR DC HOME, NO SERVICES. 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 SON TO TRANSPORT HOME.
[2022-07-02] MEDS: metFORMIN HCl ER 500 MG TAB.ER.24H 1000 MG PO (11:35)
[2022-07-02 11:44] LABS: Glucose, Whole Blood 177 mg/dL (60-115)
== END 2022-07-02 12:37 | disposition home or self-care (01) | DRG 195 ==
LOC: HO.ED 14:44 → HO.EDOVER 15:25 → HO.IMC 19:02 → HO.S3 07-01 22:26
PROVIDERS: Internal Medicine; Admitting Provider Nurse Practitioner Acute Care; Emergency Provider Emergency Medicine; PCP Family Medicine; Visit Provider Internal Medicine
DX: J18.9 Pneumonia, unspecified organism (principal); E11.9 Type 2 diabetes mellitus without complications; I10 Essential (primary) hypertension; R09.02 Hypoxemia; E03.9 Hypothyroidism, unspecified; K21.9 Gastro-esophageal reflux disease without esophagitis; Z20.822 Contact with and (suspected) exposure to COVID-19; Z87.891 Personal history of nicotine dependence; Z79.51 Long term (current) use of inhaled steroids; Z79.82 Long term (current) use of aspirin; Z79.84 Long term (current) use of oral hypoglycemic drugs; Z79.899 Other long term (current) drug therapy
CPT/HCPCS: 36415; 71046; 80048; 80053; 82803; 82947; 83036; 83605; 83880; 85025; 85610; 87040; 87635; 94640; 99285; J0456; J0696; J1650

== ENCOUNTER → 2022-07-21 10:25 | Outpatient (BNVA) | payer OTHER, SELFPAY | PROVIDERS: PCP Family Medicine; Visit Provider Surgery Vascular Surgery | DX: I83.12 Varicose veins of left lower extremity with inflammation (principal) | CPT/HCPCS: 99212 ==

== ENCOUNTER → 2022-08-03 13:20 | Outpatient (BNVA) | payer OTHER, SELFPAY | PROVIDERS: PCP Family Medicine; Visit Provider Internal Medicine | DX: J45.909 Unspecified asthma, uncomplicated (principal); J98.4 Other disorders of lung | CPT/HCPCS: 99212 ==

== ENCOUNTER 2022-08-18 12:25 | Outpatient (REF) | payer OTHER, SELFPAY ==
--- NOTE | ~2022-08-18 | MM_ITS ---
EXAMINATION: MM SCREENING DIGITAL BREAST TOMOSYNTHESIS, BILATERAL CLINICAL INFORMATION: Screening. Asymptomatic. The lifetime risk of breast cancer based on the Tyrer-Cuzick Model is 2%. COMPARISON: Mammography: 07/25/2021, 07/18/2020, 07/12/2020, 02/08/2019 TECHNIQUE: Digital breast tomosynthesis is performed in both the craniocaudal and mediolateral oblique views along with computer-aided detection (CAD). Synthesized 2D images are generated from the tomosynthesis. FINDINGS: The breasts are heterogeneously dense, which may obscure small masses (ACR BI-RADS breast composition Category c). There is a fibronodular parenchymal pattern similar to prior exams. No developing density or interval mass or architectural abnormality. There are some scattered punctate and vascular calcifications again seen. The axilla and skin contours are unremarkable. No significant changes from prior studies. MM/MM tomosynthesis screening BI IMPRESSION: No mammographic evidence of malignancy. ASSESSMENT: BI-RADS 2: Benign RECOMMENDATION: Routine annual mammography screening. This patient's information was entered into a reminder system with a target due date for their next mammogram.
== END 2022-08-18 12:26 | disposition home or self-care (01) ==
LOC: HO.MAMMO 12:25
PROVIDERS: PCP Family Medicine; Visit Provider Family Medicine
DX: Z12.31 Encounter for screening mammogram for malignant neoplasm of breast (principal)
CPT/HCPCS: 77063; 77067

== ENCOUNTER → 2022-08-28 10:24 | Outpatient (BNVA) | payer OTHER, SELFPAY | PROVIDERS: PCP Family Medicine; Visit Provider Surgery Vascular Surgery | DX: I83.12 Varicose veins of left lower extremity with inflammation (principal) | CPT/HCPCS: 37765 ==

== ENCOUNTER → 2022-09-14 09:26 | Outpatient (BNVA) | payer OTHER, SELFPAY | PROVIDERS: PCP Family Medicine; Visit Provider Surgery Vascular Surgery | DX: I83.12 Varicose veins of left lower extremity with inflammation (principal); Z98.890 Other specified postprocedural states | CPT/HCPCS: 99212 ==

== ENCOUNTER 2022-10-19 11:31 | Outpatient (REF) | payer OTHER, SELFPAY ==
[2022-10-19 14:05] LABS: Creatinine Urine 40.61 mg/dL; Microalbum/Creatinine Ratio Ur 34.4 ug/mg cr
[2022-10-19 14:13] LABS: Cholesterol 126 mg/dL; HDL Cholesterol 34 mg/dL; LDL Cholesterol Calculated 51 mg/dl; Triglycerides 206 mg/dL
[2022-10-19 14:38] LABS: Alanine Aminotransferase 24 U/L (0-31); Albumin Level 4.5 g/dL (3.5-5.0); Alkaline Phosphatase 58 U/L (39-117); Anion Gap 18 (12-20); Aspartate Amino Transferase 25 U/L (5-31); Bilirubin Total 0.6 mg/dL (0.0-1.0); Blood Urea Nitrogen 14 mg/dL (9-16); Calcium 10.9 mg/dL (8.4-10.2); Carbon Dioxide 23 mmol/L (22-29); Chloride 104 mmol/L (96-108); Estimated Glomerular Filt Rate > 60; Glucose Random 125 mg/dL (60-115); Potassium 4.9 mmol/L (3.3-5.1); Sodium 140 mmol/L (135-145); TSH reflex Free T4 0.85 uIU/mL (0.32-4.0)
[2022-10-19 14:43] LABS: Folate 6.8 ng/mL (> or = 4.0); Vitamin B12 408 pg/mL (200-900)
[2022-10-19 14:48] LABS: Estimated Average Glucose 134 mg/dL; Hemoglobin A1c % 6.3 %
[2022-10-19 15:58] LABS: Reflex LDLD? No
== END 2022-10-19 11:32 | disposition home or self-care (01) ==
LOC: HO.HHCL 11:31
PROVIDERS: Visit Provider Family Medicine
DX: E11.9 Type 2 diabetes mellitus without complications (principal)
CPT/HCPCS: 36415; 80053; 80061; 82043; 82607; 82746; 83036; 84443

== ENCOUNTER 2022-10-19 12:24 | Outpatient (REF) | payer OTHER, SELFPAY ==
--- NOTE | ~2022-10-19 | XR_ITS ---
EXAMINATION: XR ELBOW, RIGHT CLINICAL INFORMATION: Right arm pain, fall 2 months ago, pain in right shoulder status post surgery COMPARISON: None available. TECHNIQUE: AP, lateral, and oblique views of the right elbow. FINDINGS: The bones are intact. No fracture or joint effusion. Alignment is anatomic. There is marked narrowing of the joints of the elbow particularly the radiocapitellar joint. There is slight calcification noted anterior to the proximal shaft of the radius. There is also a small calcification anterior to the distal humerus. 0.8 cm sclerotic density is seen in the posterior distal humerus. XR/XR elbow RT min 3V IMPRESSION: 1. No acute bony abnormality. 2. Marked degenerative change of the elbow.
--- NOTE | ~2022-10-19 | XR_ITS ---
EXAMINATION: XR SHOULDER, RIGHT CLINICAL INFORMATION: Right arm pain, fall 2 months ago. Acute pain in right shoulder status post surgery COMPARISON: None available. TECHNIQUE: AP neutral rotation, Grashey, scapular Y, and axillary views of the right shoulder. FINDINGS: The bones are intact. No fracture. Glenohumeral and acromioclavicular alignment is anatomic. There is moderate to marked narrowing of the glenohumeral joint with large marginal osteophyte extending off the humeral head. There is mild degenerative change of the acromioclavicular joint. No abnormal soft tissue calcifications. XR/XR shoulder RT min 2V IMPRESSION: 1. No acute bony abnormality. 2. 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
--- NOTE | ~2022-10-19 | XR_ITS ---
EXAMINATION: XR FOREARM, RIGHT CLINICAL INFORMATION: Right arm pain, fall 2 months ago COMPARISON: Same day right elbow and right shoulder TECHNIQUE: AP and lateral views of the right forearm were obtained. FINDINGS: The bones are intact No fracture. Imaged portions of the wrist are unremarkable. There is marked narrowing of the joints of the elbow particularly the radiocapitellar joint. There is slight calcification noted anterior to the proximal shaft of the radius. There is also a small calcification anterior to the distal humerus. 0.8 cm sclerotic density is seen in the posterior distal humerus. XR/XR forearm RT 2V IMPRESSION: 1. No acute bony abnormality. 2. Marked narrowing of the joints of the elbow. 3. Calcifications noted anterior to the proximal shaft of the radius and anterior to the distal humerus.
== END 2022-10-19 12:25 | disposition home or self-care (01) ==
LOC: HO.HHCX 12:24
PROVIDERS: Visit Provider Family Medicine
DX: M25.511 Pain in right shoulder (principal); M79.601 Pain in right arm; M25.521 Pain in right elbow
CPT/HCPCS: 73030; 73080; 73090

== ENCOUNTER 2022-11-09 11:32 | Outpatient (AMB) | payer OTHER, SELFPAY ==
--- NOTE | 2022-11-09 11:48 | MHC.OFFVIS ---
Intake Vital Signs 11/09/22 11:49 Height 5 ft Weight 154 lb 5.177 oz BMI 30.1 BP 140/82 H Blood Pressure Location Lt brachial Position Sitting Pulse 85 Pulse Source Monitor Pulse Oximetry (%) 93 Oxygen Delivery Method Room Air Intake Visit Reasons: OVERDUE 6 MON FUP. Intake Note: Overdue 6 month follow up with EKG. [employer] Collector Required: No Accompanied by: Self / Same As Patient Allergies white fish Allergy (Intermediate, Uncoded 11/09/22 11:54) body swelling, redness Medication List - Last Reconciled 11/09/22 by Ian He MD acetaminophen (Mapap (acetaminophen)) 1,000 mg PO Q8H PRN acetaminophen 1,000 mg PO Q8H PRN albuterol sulfate 1 amp inhalation Q4-6H PRN albuterol sulfate 90 mcg/actuation (ProAir HFA) 2 puffs inhalation Q4-6H PRN alendronate 70 mg PO QWEEK amlodipine 2.5 mg PO DAILY aspirin 81 mg PO DAILY atorvastatin 40 mg PO BEDTIME blood sugar diagnostic ([employer] Ultra Test strips) As directed fluticasone propion-salmeterol 250-50 mcg/dose 1 ea PO BID hydrocortisone 1% appl topical BID ketoconazole 2% 5 - 10 topical lancets (FAD ? IOTouch Delica Plus Lancet) As directed levothyroxine 88 mcg PO DAILY@0600 magnesium oxide 400 mg PO .Q48H@2100 melatonin 3 mg PO BEDTIME metformin ER 1,000 mg PO BID@1300,1900 metoprolol tartrate 25 mg PO BID montelukast 10 mg PO BEDTIME multivitamin (Multiple Vitamins tablet) 1 tab PO DAILY pantoprazole 40 mg PO DAILY@0630 HPI HPI Comments History of Present Illness Details 76-year-old female was referred to us for question cardiomyopathy. There is no echocardiography a previous records available currently. She has background history of diabetes, hypertension, bronchial asthma/COPD and history of of cerebral aneurysm. She noticed sudden episode of sweating and noticed her blood pressure be elevated at 150 systolic. She had no chest discomfort shortness of breath. She said this episode improved and next blood pressure was better. She is denying any chest discomfort or significant shortness of breath otherwise. She has been following with Dr. Terrell closely and has been stable. Blood pressure in the office is good. Overall no obvious concerns or symptoms today. She was referred for echocardiography and Holter monitoring. Both were normal. She returns and is feeling good. She is complaining of varicose veins on both legs. 11/09/2022: She returns for follow-up. She is complaining of dyspnea on exertion. She has known COPD and bronchial asthma. Blood pressure is mildly elevated. She is taking amlodipine 2.5 mg once a day and metoprolol tartrate 25 mg twice a day. No chest discomfort. EKG showing left bundle-branch block. [facility] Medical History (Updated 11/09/22 @ 12:13 by Ian He MD) Abdominal hyperesthesia Allergic rhinitis Altered bowel habits Arthritis Asthma Back pain Brain aneurysm Bronchial asthma Calculus of gallbladder COPD (chronic obstructive pulmonary disease) Cubital tunnel syndrome Depression DM II (diabetes mellitus, type II), controlled Dyspepsia Gallstone pancreatitis Hemorrhoids Hx of cardiomyopathy Hyperlipidemia Hypothyroidism LBBB (left bundle branch block) Lipoma of other skin and subcutaneous tissue Migraine headache Restrictive airway disease Rotator cuff tear arthropathy of right shoulder Subacromial bursitis Subacromial impingement Urge incontinence Venous insufficiency Surgical History H/O craniotomy History of cardiac catheterization History of shoulder surgery History of total left knee replacement History of total right knee replacement Hx of colonoscopy S/P surgical manipulation of knee joint Family History Son Hypertension Brother Colon cancer Social History Household Members: None Housing: Apartment Are you a primary personal carer to a significant other at home: No Do you presently have visiting nurse or other home services: Yes Alcohol intake: never Patient Tobacco Use Status: Former Tobacco user Quit Date: 1999 Tobacco use type: Cigarette service: No Current occupational status: disabled Review of Systems Const Denies weakness ENT Denies dizziness Card Denies chest pain, Denies chest pain with activity, Denies syncope, Denies rapid heart rate, Denies pedal edema, Denies edema, Denies leg edema, Denies lightheadedness, Denies palpitations, Denies dyspnea, Denies dyspnea on exertion and Denies orthopnea Resp Denies cough, Denies dyspnea and Denies dyspnea on exertion GI Denies hematochezia and Denies change in stool character Musc Denies abnormal gait, Denies muscle cramps, Denies muscle weakness, Denies numbness, Denies radiating pain into limb and Denies tingling Neuro Denies abnormal gait, Denies dizziness, Denies syncope, Denies numbness, Denies tingling and Denies weakness Endo Denies palpitations Physical Exam Vital Signs: Last Vital Signs Pulse 85 11/09/22 11:49 BP 140/82 H 11/09/22 11:49 Pulse Ox 93 11/09/22 11:49 Oxygen Delivery Method Room Air 11/09/22 11:49 BMI result Body Mass Index 30.1 GENERAL APPEARANCE: in no acute distress, pleasant. NECK: no carotid bruit, no jugular venous distention. SKIN: no suspicious lesions, warm and dry. HEART: no murmurs, regular rate and rhythm. LUNGS: clear to auscultation bilaterally. ABDOMEN: soft, nontender. EXTREMITIES: no edema. Varicose veins. PERIPHERAL PULSES: equal. NEUROLOGIC: No gross deficits, AAO X 3 Office Procedures EKG Details: Sinus rhythm 5 beats per minute, left bundle-branch block, QTC 447 milliseconds. [id number], Complete Assessment & Plan Assessment & Plan (1) LBBB (left bundle branch block): Code(s): I44.7 - Left bundle-branch block, unspecified (2) COPD (chronic obstructive pulmonary disease): Code(s): J44.9 - Chronic obstructive pulmonary disease, unspecified (3) Essential hypertension: Code(s): I10 - Essential (primary) hypertension Plan 76-year-old female with dyspnea on exertion due to COPD/asthma, hypertension and left bundle-branch block. Last echocardiography was in February which was normal. Blood pressure is mildly elevated and I have advised her to increase amlodipine to 5 mg once a day. Given left bundle-branch block, I will repeat echocardiography in 1 year from the last echo which will be February 2023. We will see her back after repeat echocardiography. If there is any LV dysfunction then will do further testing. I have advised her that if her breathing changes significantly or she develops any chest discomfort then she should get in touch with us. Otherwise she will see us back in 4-5 months. Thank you for allowing me to participate in the care of your patient. Please feel free to contact me if you have any questions. Orders: Orders CA echo transthoracic complete 4 Months I44.7 - Left bundle-branch block, unspecified Medications: New amlodipine 5 mg PO DAILY 60 tabs 3RF I10 - Essential (primary) hypertension amlodipine 5 mg PO DAILY 60 tabs 3RF I10 - Essential (primary) hypertension Discontinued metoprolol tartrate 12.5 mg (1/2 x 25 mg) PO BID 90 days 90 tabs 3RF Coding Level of Care Code Est Pt Level 4 (53065) Diagnoses LBBB (left bundle branch block) I44.7 COPD (chronic obstructive pulmonary disease) J44.9 Essential hypertension I10 CPT Codes EKG - CPT: 76731-[id number], Complete ([id number])
[2022-11-09 11:49] VITALS: BP 140/82; PULSE 85; O2SAT 93; BMI 30.1
== END 2022-11-09 12:14 | disposition home or self-care (01) ==
PROVIDERS: PCP Family Medicine; Referring Provider Family Medicine; Visit Provider Internal Medicine Cardiovascular Disease
DX: I44.7 Left bundle-branch block, unspecified (principal); J44.9 Chronic obstructive pulmonary disease, unspecified; I10 Essential (primary) hypertension
CPT/HCPCS: 93010; 99214

== ENCOUNTER → 2022-11-09 11:32 | Outpatient (BNVA) | payer OTHER, SELFPAY | PROVIDERS: PCP Family Medicine; Referring Provider Family Medicine; Visit Provider Internal Medicine Cardiovascular Disease | DX: I44.7 Left bundle-branch block, unspecified (principal); I10 Essential (primary) hypertension; J44.9 Chronic obstructive pulmonary disease, unspecified; Z98.890 Other specified postprocedural states | CPT/HCPCS: 93005; 99212 ==

== ENCOUNTER 2022-11-30 12:53 | Outpatient (AMB) | payer OTHER, SELFPAY ==
--- NOTE | 2022-11-30 13:03 | MHC.OFFVIS ---
Intake Vital Signs 11/30/22 13:23 Height 5 ft Weight 164 lb BMI 32.0 BP 137/66 Blood Pressure Location Rt brachial Position Sitting Pulse 79 Pulse Source Pulse Oximeter Pulse Oximetry (%) 94 Oxygen Delivery Method Room Air Intake Visit Reasons: Right Arm Pain Allergies white fish Allergy (Intermediate, Uncoded 11/30/22 13:23) body swelling, redness Medication List - Last Reconciled 11/30/22 by Rachel Byrne RN acetaminophen 1,000 mg PO Q8H PRN albuterol sulfate 1 amp inhalation Q4-6H PRN albuterol sulfate 90 mcg/actuation (ProAir HFA) 2 puffs inhalation Q4-6H PRN amlodipine 5 mg PO DAILY aspirin 81 mg PO DAILY aspirin (Adult Aspirin Regimen) 81 mg PO DAILY atorvastatin 40 mg PO BEDTIME blood sugar diagnostic (peerTransfer Ultra Test strips) As directed fluticasone propion-salmeterol 250-50 mcg/dose 1 ea PO BID lancets ([employer] Delica Plus Lancet) As directed levothyroxine 88 mcg PO DAILY@0600 metformin ER 1,000 mg PO BID@1300,1900 metoprolol tartrate 25 mg PO BID montelukast 10 mg PO BEDTIME multivitamin (Multiple Vitamins tablet) 1 tab PO DAILY HPI HPI Comments History of Present Illness Details Aaliyah is very pleasant 76 years old female who presents in my office with complains on pain in the right shoulder with radiation to the right elbow and to the right wrist and right hand, she also complains on awkwardness of the right upper extremity, weakness of the right upper extremity and numbness of the all fingers of the right hand. She was previously in this office forearms of a lind of radicular pain syndromes and spondylosis of lumbar spine. She was attended by Dr. Carl. She is a patient with multiple medical problems 1 of the problems is that she had brain aneurysm and she is very forgetful. She does not remember being under care of this office in the past. She cannot go to MRI machine because she has a metal plate in her skull. We agreed today that I will schedule her for the appointment of EMG as well as appointment of CT scan with and without contrast of the cervical spine. I will see her after these procedures will be done. She will give us a call to schedule an appointment. [facility] Medical History (Updated 11/30/22 @ 13:35 by Blake Vega MD) COPD (chronic obstructive pulmonary disease) Allergic rhinitis Venous insufficiency Hx of cardiomyopathy LBBB (left bundle branch block) Urge incontinence Brain aneurysm Back pain Restrictive airway disease Bronchial asthma Hemorrhoids Arthritis Depression Hypothyroidism Migraine headache Asthma Cubital tunnel syndrome Abdominal hyperesthesia Altered bowel habits Dyspepsia Gallstone pancreatitis Calculus of gallbladder Lipoma of other skin and subcutaneous tissue Hyperlipidemia DM II (diabetes mellitus, type II), controlled Rotator cuff tear arthropathy of right shoulder Subacromial impingement Subacromial bursitis Surgical History History of cardiac catheterization Hx of colonoscopy H/O craniotomy S/P surgical manipulation of knee joint History of shoulder surgery History of total right knee replacement History of total left knee replacement Family History Son Hypertension Brother Colon cancer Social History Household Members: None Housing: Apartment Are you a primary resident care technician to a significant other at home: No Do you presently have visiting nurse or other home services: Yes Alcohol intake: never Patient Tobacco Use Status: Former Tobacco user Quit Date: 1999 Tobacco use type: Cigarette service: No Current occupational status: disabled Review of Systems Const All systems reviewed & are unremarkable except as noted in HPI and below ENT Reports Normal hearing present Neuro Reports Normal hearing present, Denies Abnormal speech present and Reports Sensory deficit (Neuro) Physical Exam Vital Signs: Last Vital Signs Pulse 79 11/30/22 13:23 BP 137/66 11/30/22 13:23 Pulse Ox 94 11/30/22 13:23 Oxygen Delivery Method Room Air 11/30/22 13:23 BMI result Body Mass Index 32.0 Const General: no acute distress Orientation/consciousness: oriented to person and oriented to place Eyes General: appearance normal, both eyes and all related structures Pupils: Equal, round and reactive pupils present EOM: EOMs intact bilaterally Neck Other: Objective weakness of the right upper extremity especially in the elbow and the wrist flexion as well as on squeezing of the fist. Neck: Yes full ROM Chest Chest palpation & inspection: normal inspection of the chest Resp Effort & Inspection: normal respiratory effort, able to speak in complete sentences, normal respiratory pattern, no audible wheezes and no cough Cardio Jugular venous distension: no JVD GI Inspection: Yes normal to inspection Neuro General: oriented to person, oriented to place and gait normal Cranial nerves: Yes CN's II-XII intact bilaterally, Yes Equal, round and reactive pupils present, Yes Normal hearing present and Yes Ability to bilaterally elevate shoulders present Speech: No Abnormal speech present Gait exam (Neuro): Normal gait present Motor exam (neuro): 5/5 motor strength present throughout Sensory Exam: Sensory deficit (Neuro) Extrem General: No pedal edema Psych Appearance: grossly normal Mental Status: other (Reports memory loss) Speech and movement: Normal speech and movement present Affect: normal affect Attitude: cooperative Thought process: Normal thought process present Thought content: Normal thought content present Insight: Good insight present (Psych) Judgement: Good judgement present (Psych) Assessment & Plan Assessment & Plan (1) Lumbar spine scoliosis: Code(s): M41.9 - Scoliosis, unspecified (2) Spondylosis of lumbar spine: Code(s): M47.816 - Spondylosis without myelopathy or radiculopathy, lumbar region (3) Vertebrogenic low back pain: Code(s): M54.51 - Vertebrogenic low back pain (4) Spondylosis of cervical spine with radiculopathy: Code(s): M47.22 - Other spondylosis with radiculopathy, cervical region Plan I will send this patient for cervical CT scan with and without contrast because she cannot go for MRI. I also will schedule her for EMG to figure out where this weakness and numbness in her right upper extremity goes from. When this procedures are completed I will see her here for the follow-up. Orders: Orders NE electromyogram (EMG) Today M47.22 - Other spondylosis with radiculopathy, cervical region CT cervical spine wo/w IV con Today M47.22 - Other spondylosis with radiculopathy, cervical region Coding Level of Care Code Est Pt Level 3 (58981) Diagnoses Lumbar spine scoliosis M41.9 Spondylosis of lumbar spine M47.816 Vertebrogenic low back pain M54.51 Spondylosis of cervical spine with radiculopathy M47.22
[2022-11-30 13:23] VITALS: BP 137/66; PULSE 79; O2SAT 94; BMI 32.0
== END 2022-11-30 13:25 | disposition home or self-care (01) ==
PROVIDERS: PCP Family Medicine; Visit Provider Anesthesiology
DX: M41.9 Scoliosis, unspecified (principal); M47.816 Spondylosis without myelopathy or radiculopathy, lumbar region; M54.51 Vertebrogenic low back pain; M47.22 Other spondylosis with radiculopathy, cervical region
CPT/HCPCS: 99213

== ENCOUNTER → 2022-11-30 12:53 | Outpatient (BNVA) | payer OTHER, SELFPAY | PROVIDERS: PCP Family Medicine; Visit Provider Anesthesiology | DX: M41.9 Scoliosis, unspecified (principal); M47.816 Spondylosis without myelopathy or radiculopathy, lumbar region; M54.51 Vertebrogenic low back pain; M47.22 Other spondylosis with radiculopathy, cervical region | CPT/HCPCS: 99212 ==

== ENCOUNTER 2022-12-10 12:50 | Outpatient (REF) | payer OTHER, SELFPAY ==
--- NOTE | ~2022-12-10 | CT_ITS ---
EXAMINATION: CT HEAD WITHOUT CONTRAST CLINICAL INFORMATION: Headaches. COMPARISON: Head CT dated 03/12/2021. TECHNIQUE: Contiguous axial imaging was performed from the skull-base to vertex without intravenous administration of contrast. This CT examination was performed using dose optimization techniques as appropriate, variously including the following: *Automated exposure control *Adjustment of mA and/or kV according to patient size (this includes techniques or standardized protocols for targeted exams where dose is matched to indication/reason for exam; i.e. extremities or head) *Use of iterative reconstruction technique DLP: 702 mGy-cm. FINDINGS: There is disproportionate prominence of the lateral and third ventricles relative to the sulcal spaces superimposed upon moderate diffuse brain parenchymal volume loss. The callosal angle is narrowed and measures 60 degrees. Funez' index is mildly increased and measures 0.37. There is a paucity and effacement of the cerebral sulci around the interhemispheric fissure superior to the ventricles at the vertex with a patulous appearance of the sylvian fissure bilaterally. Findings are relatively unchanged from the prior exam. There is no evidence of acute intracranial hemorrhage or territorial infarction. No abnormal mass effect or midline shift is seen. The patient has had a prior left-sided pterional craniotomy for clipping of a left parasellar aneurysm. Encephalomalacia again visible in the left temporal pole and anteroinferior left frontal lobe. No extra-axial fluid collections are identified. Chronic white matter microangiopathy again evident throughout the cerebral white matter, as on prior imaging. The osseous structures and soft tissues are normal. The mastoid air cells and visualized portions of the paranasal sinuses are well aerated. CT/CT head/brain wo IV con IMPRESSION: No acute intracranial pathology. Postoperative changes, status post prior left parasellar aneurysm clipping. Chronic encephalomalacia in the left frontotemporal lobes. Perceived disproportionate prominence of the lateral and third ventricles relative to the sulcal spaces with a narrow callosal angle and a mildly increased Funez' index. Clinically correlate for any signs and/or symptoms of normal pressure hydrocephalus.
== END 2022-12-10 12:51 | disposition home or self-care (01) ==
LOC: HO.CT 12:50
PROVIDERS: PCP Family Medicine; Visit Provider Family Medicine
DX: R51.9 Headache, unspecified (principal)
CPT/HCPCS: 70450

== ENCOUNTER 2022-12-16 13:11 | Outpatient (REF) | payer OTHER, SELFPAY ==
--- NOTE | 2022-12-16 13:14 | EMG_ITS ---
Chief complaint: Right arm and elbow pain Reason for referral: Evaluate for cervical radiculopathy Referred by: Dr. Vega Procedure done: Right upper extremity NCS Precautions and/or limitations: Poor tolerance of that that The limb temperature was monitored continuously and remained between 32-36 degrees C during the performance of the NCS. Nerve Conduction Studies Anti Sensory Summary Table ?Stim Site NR Onset (ms) Norm Onset (ms) Peak (ms) Norm Peak (ms) O-P Amp (?V) Norm O-P Amp Site1 Site2 Delta-0 (ms) Dist (cm) Abel (m/s) Norm Abel (m/s) Right Median Anti Sensory (2nd Digit) Wrist ? 3.6 4.3 <3.6 17.8 >10 Wrist 2nd Digit 3.6 14.0 39 Right Ulnar Anti Sensory (5th Digit) Wrist ? 5.8 6.4 <3.7 6.9 >15.0 Wrist 5th Digit 5.8 14.0 24 Motor Summary Table ?Stim Site NR Onset (ms) Norm Onset (ms) O-P Amp (mV) Norm O-P Amp iAmp (mV) Amp (1st) (%) Site1 Site2 Delta-0 (ms) Dist (cm) Abel (m/s) Norm Abel (m/s) Right Median Motor (Abd Poll Brev) Wrist ? 4.3 <3.9 6.7 >4.5 8.4 100.0 Elbow Wrist 3.4 18.5 54 >45 Elbow ? 7.7 5.1 6.2 76.1 Right Ulnar Motor (Abd Dig Minimi) Wrist ? 2.7 <3.0 5.3 >5 6.9 100.0 B Elbow Wrist 2.5 17.0 68 >45 B Elbow ? 5.2 4.9 5.7 92.5 A Elbow B Elbow 3.2 10.0 31 >45 A Elbow ? 8.4 0.9 1.2 17.0 FINDINGS: Right ulnar motor nerve showed normal distal latency, drop in amplitude above elbow and slow conduction velocity across elbow. Right median motor nerve showed prolonged distal latency, normal amplitude and normal conduction velocity. Right ulnar sensory nerve showed prolonged peak latency and small amplitude. Right median sensory nerve showed prolonged peak latency. Patient did not want to proceed further with the test. IMPRESSION: 1. This is an abnormal NCS. No needle EMG done. 2. 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 3. There is electrodiagnostic evidence for right moderate-severe median neuropathy at the wrist, consistent with Carpal Tunnel Syndrome. 4. Cannot rule out radiculopathy completely without needle EMG. Thank you for your kind referral. Christa Villa MD, SYLVIA Board Certified, [place] Board of [employer] and Rehabilitation (ABPMR) Board Certified, [place] Board of Electrodiagnostic Medicine (ABEM) [facility]
== END 2022-12-16 13:12 | disposition home or self-care (01) ==
LOC: HO.NEURO 13:11
PROVIDERS: PCP Family Medicine; Visit Provider Anesthesiology
DX: M47.22 Other spondylosis with radiculopathy, cervical region (principal)
CPT/HCPCS: 95908

== ENCOUNTER → 2022-12-16 13:14 | Outpatient (BNV) | payer OTHER, SELFPAY | PROVIDERS: PCP Family Medicine; Visit Provider Physical Medicine & Rehabilitation | DX: G56.21 Lesion of ulnar nerve, right upper limb (principal); G56.11 Other lesions of median nerve, right upper limb; G56.01 Carpal tunnel syndrome, right upper limb | CPT/HCPCS: 95908 ==

== ENCOUNTER 2022-12-23 10:26 | Outpatient (REF) | payer OTHER, SELFPAY | END 2022-12-23 10:27 | disposition home or self-care (01) | LOC: HO.MAMMO 10:26 | PROVIDERS: PCP Family Medicine; Visit Provider Family Medicine | DX: Z13.820 Encounter for screening for osteoporosis (principal); M85.852 Other specified disorders of bone density and structure, left thigh | CPT/HCPCS: 77080 ==

== ENCOUNTER 2023-01-19 10:27 | Outpatient (REF) | payer OTHER, SELFPAY ==
--- NOTE | ~2023-01-19 | CT_ITS ---
CT cervical spine wo/w IV con HISTORY: spondylosis with radiculopathy, cervical region TECHNIQUE: CT images of the cervical spine were acquired without and following the administration of 60 mL Omnipaque [address] examination was performed using dose optimization techniques as appropriate, variously including the following: *Automated exposure control *Adjustment of mA and/or kV according to patient size (this includes techniques or standardized protocols for targeted exams where dose is matched to indication/reason for exam; i.e. extremities or head) *Use of iterative reconstruction technique DLP: 626 mGy-cm COMPARISON: None available. FINDINGS: Motion degraded examination which limits accurate assessment of canal and neural foraminal stenosis. The craniocervical junction is intact. There is moderate arthrosis of the atlantodental articulation with hypertrophic changes involving the C1 anterior arch and small partially calcified retrodental pannus. Cervical straightening. Trace anterolisthesis of C3 on C4, C4 on C5, C5 on C6. Vertebral body heights are normal without acute compression fracture. No suspicious osseous lesion. Multilevel disc height loss with near-complete loss of the disc space from C5-C6 to C7-T1 and exuberant endplate sclerosis at C5-C6 and C7-T1. There are multilevel degenerative changes with level by level detail as follows: C2-C3: Moderate facet arthropathy. No significant osseous spinal canal or neural foraminal narrowing. C3-C4: Trace anterolisthesis. Right greater than left facet arthropathy. Uncovertebral hypertrophy. No significant central spinal canal stenosis. Moderate to severe right and mild to moderate left neural foraminal narrowing. C4-C5: Facet hypertrophy and ankylosis. Uncovertebral hypertrophy. Moderate right and mild left neural foraminal narrowing. No definite central spinal canal stenosis. C5-C6: Disc osteophyte complex, uncovertebral hypertrophy. No significant central spinal canal stenosis. Suggestion of moderate to severe central spinal canal stenosis and moderate to severe bilateral neural foraminal narrowing, right greater than left. C6-C7: Uncovertebral hypertrophy. No significant osseous spinal canal or neural foraminal narrowing. C7-T1: Facet arthropathy and uncovertebral hypertrophy.. No definite central spinal canal stenosis. Moderate bilateral neural foraminal narrowing No significant abnormalities of the paraspinal musculature. Visualized lung apices are clear. The visualized intracranial structures are normal. Partially visualized aneurysm clip in the region of the left supraclinoid ICA. Severe degenerative changes of the right temporomandibular joint. CT/CT cervical spine wo/w IV con IMPRESSION: Motion degraded examination which limits accurate assessment of canal and neural foraminal stenosis Multilevel cervical spondylosis appears worst at C5-C6 where there is suggestion of moderate to severe central spinal canal stenosis and moderate to severe bilateral neural foraminal narrowing, right greater than left. There is also moderate to severe right neural foraminal narrowing at C3-C4 and moderate bilateral neural foraminal narrowing at C7-T1.
[2023-01-19] MEDS: iohexoL 350 MG/ML 100 ML INFUS..BTL IV (11:59)
[2023-01-19 13:28] LABS: Creatinine POC 0.6 mg/dL (0.5-1.4); GFR POC > 60
== END 2023-01-19 10:28 | disposition home or self-care (01) ==
LOC: HO.CT 10:27
PROVIDERS: PCP Family Medicine; Visit Provider Anesthesiology
DX: M47.22 Other spondylosis with radiculopathy, cervical region (principal)
CPT/HCPCS: 72127; 82565; Q9967

== ENCOUNTER 2023-01-27 11:39 | Outpatient (REF) | payer OTHER, SELFPAY ==
[2023-01-27 12:48] LABS: Alanine Aminotransferase 23 U/L (0-31); Albumin Level 4.4 g/dL (3.5-5.0); Alkaline Phosphatase 71 U/L (39-117); Aspartate Amino Transferase 29 U/L (5-31); Bilirubin Direct 0.2 mg/dL (0.0-0.5); Bilirubin Total 0.8 mg/dL (0.0-1.0); Calcium 10.7 mg/dL (8.4-10.2)
[2023-01-27 13:03] LABS: Vitamin D 25-OH Total 33.2 ng/mL (>30)
[2023-01-29 16:34] LABS: Calcium (PTHI) 10.7 mg/dL (8.6-10.4); PTHI 11 pg/mL (16-77)
== END 2023-01-27 11:40 | disposition home or self-care (01) ==
LOC: HO.LAB 11:39
PROVIDERS: PCP Family Medicine; Visit Provider Family Medicine
DX: M41.9 Scoliosis, unspecified (principal); M47.816 Spondylosis without myelopathy or radiculopathy, lumbar region; M54.51 Vertebrogenic low back pain; M47.22 Other spondylosis with radiculopathy, cervical region; Z79.899 Other long term (current) drug therapy
CPT/HCPCS: 36415; 80076; 82306; 82310; 83970; 99212

== ENCOUNTER 2023-01-27 12:52 | Outpatient (AMB) | payer OTHER, SELFPAY ==
--- NOTE | 2023-01-27 12:56 | MHC.OFFVIS ---
Intake Vital Signs 01/27/23 13:11 Height 5 ft Weight 164 lb BMI 32.0 BP 138/74 Blood Pressure Location Lt brachial Position Sitting Respiration 14 Pulse 97 Pulse Source Pulse Oximeter Pulse Oximetry (%) 94 Oxygen Delivery Method Room Air Intake Visit Reasons: Cervical Spine CT Results/CONFIRMED Intake Note: Patient comes in to discuss cervical spine CT results. Allergies white fish Allergy (Intermediate, Uncoded 11/30/22 13:23) body swelling, redness HPI HPI Comments History of Present Illness Details Aaliyah is very pleasant 76 years old female who presents in my office with complains on pain in the right shoulder with radiation to the right elbow and to the right wrist and right hand, she also complains on awkwardness of the right upper extremity, weakness of the right upper extremity and numbness of the all fingers of the right hand. She was previously in this office forearms of a lind of radicular pain syndromes and spondylosis of lumbar spine. She was attended by Dr. Carl. She is a patient with multiple medical problems 1 of the problems is that she had brain aneurysm and she is very forgetful. She does not remember being under care of this office in the past. She cannot go to MRI machine because she has a metal plate in her skull. I wanted her to go for EMG however she did not attended that study. She has on CT scan significant central canal stenosis stated as below. Neurosurgical consult was offered to the patient. The patient is not very eager to go and see a neurosurgeon. Also I have my doubts about her pain coming from arthritis however nevertheless I offered her C4-C5 C6 medial branch block. The patient is also reluctant to go for block. In this situation I only can recommend the patient to get into contact with her primary care physician who may be willing to start her on very low does fentanyl patch. I would recommend to start her on 12.5 of fentanyl patch and keep it on for 1-3 months. If the patient's mental status will not be worsened by fentanyl on the course of tree month and she would have at least some pain relieve of on fentanyl I would try for next 3-6 months may be to increase dose of fentanyl patch from 12.5-25 mcg an hour. [facility] Medical History (Updated 12/17/22 @ 16:12 by Blake Vega MD) COPD (chronic obstructive pulmonary disease) Allergic rhinitis Venous insufficiency Hx of cardiomyopathy LBBB (left bundle branch block) Urge incontinence Brain aneurysm Back pain Restrictive airway disease Bronchial asthma Hemorrhoids Arthritis Depression Hypothyroidism Migraine headache Asthma Cubital tunnel syndrome Abdominal hyperesthesia Altered bowel habits Dyspepsia Gallstone pancreatitis Calculus of gallbladder Lipoma of other skin and subcutaneous tissue Hyperlipidemia DM II (diabetes mellitus, type II), controlled Rotator cuff tear arthropathy of right shoulder Subacromial impingement Subacromial bursitis Surgical History History of cardiac catheterization Hx of colonoscopy H/O craniotomy S/P surgical manipulation of knee joint History of shoulder surgery History of total right knee replacement History of total left knee replacement Family History Son Hypertension Brother Colon cancer Social History Household Members: None Housing: Apartment Are you a primary director of healthcare systems to a significant other at home: No Do you presently have visiting nurse or other home services: Yes Alcohol intake: never Patient Tobacco Use Status: Former Tobacco user Quit Date: 1999 Tobacco use type: Cigarette service: No Current occupational status: disabled Review of Systems Const All systems reviewed & are unremarkable except as noted in HPI and below ENT Reports Normal hearing present Neuro Reports Normal hearing present, Denies Abnormal speech present and Reports Sensory deficit (Neuro) Physical Exam Vital Signs: Last Vital Signs Pulse 97 01/27/23 13:11 Resp 14 01/27/23 13:11 BP 138/74 01/27/23 13:11 Pulse Ox 94 01/27/23 13:11 Oxygen Delivery Method Room Air 01/27/23 13:11 BMI result Body Mass Index 32.0 Const General: no acute distress Orientation/consciousness: oriented to person and oriented to place Eyes General: appearance normal, both eyes and all related structures Pupils: Equal, round and reactive pupils present EOM: EOMs intact bilaterally Neck Other: Objective weakness of the right upper extremity especially in the elbow and the wrist flexion as well as on squeezing of the fist. Neck: Yes full ROM Chest Chest palpation & inspection: normal inspection of the chest Resp Effort & Inspection: normal respiratory effort, able to speak in complete sentences, normal respiratory pattern, no audible wheezes and no cough Cardio Jugular venous distension: no JVD GI Inspection: Yes normal to inspection Neuro General: oriented to person, oriented to place and gait normal Cranial nerves: Yes CN's II-XII intact bilaterally, Yes Equal, round and reactive pupils present, Yes Normal hearing present and Yes Ability to bilaterally elevate shoulders present Speech: No Abnormal speech present Gait exam (Neuro): Normal gait present Motor exam (neuro): 5/5 motor strength present throughout Sensory Exam: Sensory deficit (Neuro) Extrem General: No pedal edema Psych Appearance: grossly normal Mental Status: other (Reports memory loss) Speech and movement: Normal speech and movement present Affect: normal affect Attitude: cooperative Thought process: Normal thought process present Thought content: Normal thought content present Insight: Good insight present (Psych) Judgement: Good judgement present (Psych) Results Reviewed Results Reviewed: [address] [address] [address] Scan Report Signed Patient: Aaliyah Brennan I MR#: [id number] : 1945 Acct:[id number] Age/Sex: 77 / F CT cervical spine wo/w IV con 01/19/2023 HISTORY: spondylosis with radiculopathy, cervical region TECHNIQUE: CT images of the cervical spine were acquired without and following the administration of 60 mL Omnipaque [address] examination was performed using dose optimization techniques as appropriate, variously including the following: *Automated exposure control *Adjustment of mA and/or kV according to patient size (this includes techniques or standardized protocols for targeted exams where dose is matched to indication/reason for exam; i.e. extremities or head) *Use of iterative reconstruction technique DLP: 626 mGy-cm COMPARISON: None available. FINDINGS: Motion degraded examination which limits accurate assessment of canal and neural foraminal stenosis. The craniocervical junction is intact. There is moderate arthrosis of the atlantodental articulation with hypertrophic changes involving the C1 anterior arch and small partially calcified retrodental pannus. Cervical straightening. Trace anterolisthesis of C3 on C4, C4 on C5, C5 on C6. Vertebral body heights are normal without acute compression fracture. No suspicious osseous lesion. Multilevel disc height loss with near-complete loss of the disc space from C5-C6 to C7-T1 and exuberant endplate sclerosis at C5-C6 and C7-T1. There are multilevel degenerative changes with level by level detail as follows: C2-C3: Moderate facet arthropathy. No significant osseous spinal canal or neural foraminal narrowing. C3-C4: Trace anterolisthesis. Right greater than left facet arthropathy. Uncovertebral hypertrophy. No significant central spinal canal stenosis. Moderate to severe right and mild to moderate left neural foraminal narrowing. C4-C5: Facet hypertrophy and ankylosis. Uncovertebral hypertrophy. Moderate right and mild left neural foraminal narrowing. No definite central spinal canal stenosis. C5-C6: Disc osteophyte complex, uncovertebral hypertrophy. No significant central spinal canal stenosis. Suggestion of moderate to severe central spinal canal stenosis and moderate to severe bilateral neural foraminal narrowing, right greater than left. C6-C7: Uncovertebral hypertrophy. No significant osseous spinal canal or neural foraminal narrowing. C7-T1: Facet arthropathy and uncovertebral hypertrophy.. No definite central spinal canal stenosis. Moderate bilateral neural foraminal narrowing No significant abnormalities of the paraspinal musculature. Visualized lung apices are clear. The visualized intracranial structures are normal. Partially visualized aneurysm clip in the region of the left supraclinoid ICA. Severe degenerative changes of the right temporomandibular joint. Impression: Motion degraded examination which limits accurate assessment of canal and neural foraminal stenosis Multilevel cervical spondylosis appears worst at C5-C6 where there is suggestion of moderate to severe central spinal canal stenosis and moderate to severe bilateral neural foraminal narrowing, right greater than left. There is also moderate to severe right neural foraminal narrowing at C3-C4 and moderate bilateral neural foraminal narrowing at C7-T1. Assessment & Plan Assessment & Plan (1) Lumbar spine scoliosis: Code(s): M41.9 - Scoliosis, unspecified (2) Spondylosis of lumbar spine: Code(s): M47.816 - Spondylosis without myelopathy or radiculopathy, lumbar region (3) Vertebrogenic low back pain: Code(s): M54.51 - Vertebrogenic low back pain (4) Spondylosis of cervical spine with radiculopathy: Code(s): M47.22 - Other spondylosis with radiculopathy, cervical region Plan Patient is unable to go for MRI. She was sent for CT with and without contrast. The results are as above. Most prominent feature is widespread spondylosis and C5-C6 central canal stenosis. 2. ways of treatments are offered to the patient. I offered patient to consider consultation with neurosurgeon. Patient is reluctant to go for neurosurgical consult. I also offered the patient medial branch blocks C4-C5 C6 to alleviate her neck pain at least temporarily. The patient is reluctant to that as well. In this situation I suggested that small dose of fentanyl patch could be tried on her for strictly defined period of time. If 12.5 mcg per hour fentanyl patch would give patient at least some pain relief and results in no mental status changes the dose could be escalated to 25 micro g per hour. However I would not escalate the dose of the opioid this patient above 50 micro g per hour under any circumstances. Mental status of the patient need to be monitored closely while on fentanyl because she already exhibits forgetfulness. She is reluctant to go for EMG. No new follow-up is recommended for the patient unless she decides to go for 1st two mentioned above modalities of treatment. Patient Instructions: I hereby testify that I spent 35 minutes in conversation with this patient as well as planning her care, evaluating her images and reports and composing this note. Coding Level of Care Code Est Pt Level 4 (00095) Diagnoses Lumbar spine scoliosis M41.9 Spondylosis of lumbar spine M47.816 Vertebrogenic low back pain M54.51 Spondylosis of cervical spine with radiculopathy M47.22
[2023-01-27 13:11] VITALS: BP 138/74; PULSE 97; RESP 14; O2SAT 94; BMI 32.0
== END 2023-01-27 13:25 | disposition home or self-care (01) ==
PROVIDERS: PCP Family Medicine; Visit Provider Anesthesiology
DX: M41.9 Scoliosis, unspecified (principal); M47.816 Spondylosis without myelopathy or radiculopathy, lumbar region; M54.51 Vertebrogenic low back pain; M47.22 Other spondylosis with radiculopathy, cervical region
CPT/HCPCS: 99214

== ENCOUNTER 2023-02-15 11:31 | Outpatient (AMB) | payer OTHER, SELFPAY ==
--- NOTE | 2023-02-15 11:44 | MHC.OFFVIS ---
Intake Intake Visit Reasons: OV-left knee pain Intake Note: Aaliyah is a 77 year old female who presents today for a follow up of her left knee, history of Left TKA. Patient reports that she is having continued pain of the left knee. Allergies white fish Allergy (Intermediate, Uncoded 11/30/22 13:23) body swelling, redness HPI OV-left knee pain HPI Details Aaliyah is a 77 year old Diabetic woman who presents with complaints of left knee pain. She has a hx of left TKA in ~2013, with post-op pain. She complains of pain with daily activity, worse with standing, walking, or using stairs. She says she fell recently while at home due to her knee. She describes her pain as sharp and in the front of her knee. She follows with pain management for multiple spine problems. [facility] Medical History (Updated 02/15/23 @ 12:38 by Jas Olmedo) COPD (chronic obstructive pulmonary disease) Allergic rhinitis Venous insufficiency Hx of cardiomyopathy LBBB (left bundle branch block) Urge incontinence Brain aneurysm Back pain Restrictive airway disease Bronchial asthma Hemorrhoids Arthritis Depression Hypothyroidism Migraine headache Asthma Cubital tunnel syndrome Abdominal hyperesthesia Altered bowel habits Dyspepsia Gallstone pancreatitis Calculus of gallbladder Lipoma of other skin and subcutaneous tissue Hyperlipidemia DM II (diabetes mellitus, type II), controlled Rotator cuff tear arthropathy of right shoulder Subacromial impingement Subacromial bursitis Surgical History (Updated 02/15/23 @ 12:36 by Jas Olmedo) History of cardiac catheterization Hx of colonoscopy H/O craniotomy S/P surgical manipulation of knee joint History of shoulder surgery History of total right knee replacement History of total left knee replacement Family History Son Hypertension Brother Colon cancer Household Members: None Housing: Apartment Are you a primary director of patient care to a significant other at home: No Do you presently have visiting nurse or other home services: Yes Alcohol intake: never Patient Tobacco Use Status: Former Tobacco user Quit Date: 1999 Tobacco use type: Cigarette service: No Current occupational status: disabled Review of Systems Const All systems reviewed & are unremarkable except as noted in HPI and below Physical Exam Const General: no acute distress, alert and awake Orientation/consciousness: patient oriented x3 HEENT Head: Yes normocephalic and Yes atraumatic Eyes EOM: EOMs intact bilaterally Resp Effort & Inspection: normal respiratory effort and able to speak in complete sentences Cardio Jugular venous distension: no JVD Skin General skin exam: turgor normal Rashes: no rashes Neuro General: patient oriented x3 Extrem Other: Left Knee: ttp lateral patellar facet with mild effusion Psych Appearance: grossly normal Affect: normal affect Attitude: cooperative Results Reviewed Results Reviewed: I personally reviewed relevant radiographs Left total knee arthroplasty in expected post operative position with no hardware complications or evidence of loosening. There continues to be a prominent ossicle off the lateral patella. Assessment & Plan Assessment & Plan (1) Left knee pain: Code(s): M25.562 - Pain in left knee Plan: This is a 77 year old woman with left knee pain, with a loose bony ossicle about the patella, and a hx of TKA done in ~2013. She has pain with daily activity, worse with standing or ambulation, and a hx of recent falls due to her knee giving way. I discussed her diagnosis and treatment options, and reviewed her radiographs with her. I recommend a left knee surgery to remove the painful ossicle and inspect the patella however she is hesitant to undergo surgery at this time. She will follow up with Pain Management to discuss other treatment options. (2) Status post total left knee replacement using cement: Comment: in ~2013 Code(s): Z96.652 - Presence of left artificial knee joint (3) DM II (diabetes mellitus, type II), controlled: Code(s): E11.9 - Type 2 diabetes mellitus without complications Plan Scribed for Morgan Dominguez MD by Jas Olmedo, chief medical director, on 02/15/23 at 1:05 PM, EST. Orders: Orders XR knee standing BI Today M25.569 - Pain in unspecified knee XR knee LT 2V Today M25.569 - Pain in unspecified knee Coding Level of Care Code Est Pt Level 4 (42346) Diagnoses Left knee pain M25.562 Status post total left knee replacement using cement Z96.652 DM II (diabetes mellitus, type II), controlled E11.9
== END 2023-02-15 13:51 | disposition home or self-care (01) ==
PROVIDERS: PCP Family Medicine; Visit Provider Orthopaedic Surgery
DX: M25.562 Pain in left knee (principal); Z96.652 Presence of left artificial knee joint
CPT/HCPCS: 99214

== ENCOUNTER 2023-02-15 11:31 | Outpatient (REF) | payer OTHER, SELFPAY ==
--- NOTE | ~2023-02-15 | XR_ITS ---
EXAMINATION: Left knee TECHNIQUE: AP bilateral weightbearing and lateral and sunrise views of the left knee CLINICAL INFORMATION: Pain COMPARISON: None FINDINGS: Patient is status post total knee replacement with patellar resurfacing bilaterally. Left knee revealed well positioned prosthesis and there is small suprapatellar fullness due to joint effusion. There is irregularity of the patella with spurring. XR/XR knee standing BI IMPRESSION: Well-positioned left knee prosthesis and small joint effusion. Mild degenerative changes in the patellofemoral joint. Spurring and small suprapatellar fullness due to effusion.
--- NOTE | ~2023-02-15 | XR_ITS ---
EXAMINATION: Left knee TECHNIQUE: AP bilateral weightbearing and lateral and sunrise views of the left knee CLINICAL INFORMATION: Pain COMPARISON: None FINDINGS: Patient is status post total knee replacement with patellar resurfacing bilaterally. Left knee revealed well positioned prosthesis and there is small suprapatellar fullness due to joint effusion. There is irregularity of the patella with spurring. XR/XR knee LT 2V IMPRESSION: Well-positioned left knee prosthesis and small joint effusion. Mild degenerative changes in the patellofemoral joint. Spurring and small suprapatellar fullness due to effusion.
== END 2023-02-15 11:32 | disposition home or self-care (01) ==
LOC: HO.HOSX 11:31
PROVIDERS: PCP Family Medicine; Visit Provider Orthopaedic Surgery
DX: T84.84XA Pain due to internal orthopedic prosthetic devices, implants and grafts, initial encounter (principal); Z96.652 Presence of left artificial knee joint; E11.9 Type 2 diabetes mellitus without complications
CPT/HCPCS: 73560; 73565; 99212

== ENCOUNTER 2023-02-15 13:30 | Outpatient (REF) | payer OTHER, SELFPAY ==
[2023-02-15 14:56] LABS: Alanine Aminotransferase 18 U/L (0-31); Albumin Level 4.6 g/dL (3.5-5.0); Alkaline Phosphatase 61 U/L (39-117); Anion Gap 12 (12-20); Aspartate Amino Transferase 18 U/L (5-31); Bilirubin Total 0.6 mg/dL (0.0-1.0); Blood Urea Nitrogen 15 mg/dL (9-16); Calcium 10.4 mg/dL (8.4-10.2); Carbon Dioxide 31 mmol/L (22-29); Chloride 103 mmol/L (96-108); Estimated Glomerular Filt Rate > 60; Glucose Random 104 mg/dL (60-115); Sodium 142 mmol/L (135-145); Total Protein 8.2 g/dL (6.5-8.0)
[2023-02-15 15:12] LABS: TSH reflex Free T4 1.21 uIU/mL (0.32-4.0)
[2023-02-15 15:19] LABS: Creatinine Urine 52.99 mg/dL; Microalbum/Creatinine Ratio Ur 43.4 ug/mg cr (<30)
== END 2023-02-15 13:31 | disposition home or self-care (01) ==
LOC: HO.LAB 13:30
PROVIDERS: PCP Family Medicine; Visit Provider Family Medicine
DX: E11.9 Type 2 diabetes mellitus without complications (principal); I10 Essential (primary) hypertension; E89.0 Postprocedural hypothyroidism
CPT/HCPCS: 36415; 80053; 82043; 82570; 84443

== ENCOUNTER 2023-02-25 10:26 | Outpatient (REF) | payer OTHER, SELFPAY ==
[2023-02-25 12:12] LABS: Cholesterol 141 mg/dL (<200); HDL Cholesterol 37 mg/dL (>40); LDL Cholesterol Calculated 77 mg/dL (<100); Triglycerides 135 mg/dL (<150)
[2023-02-25 12:15] LABS: Reflex LDLD? No
== END 2023-02-25 10:27 | disposition home or self-care (01) ==
LOC: HO.LAB 10:26
PROVIDERS: PCP Family Medicine; Visit Provider Family Medicine
DX: E78.2 Mixed hyperlipidemia (principal)
CPT/HCPCS: 36415; 80061

== ENCOUNTER 2023-02-25 11:41 | Emergency (ER) | payer OTHER, SELFPAY ==
--- NOTE | ~2023-02-25 | CT_ITS ---
EXAMINATION: CT ABDOMEN AND PELVIS WITHOUT CONTRAST CLINICAL INFORMATION: Right flank pain. Right upper quadrant pain. COMPARISON: Right upper quadrant ultrasound 01/01/2022 CT abdomen 01/11/2019 TECHNIQUE: Multidetector volumetric imaging was performed from the superior aspect of the liver through the pubic symphysis. Sagittal and coronal reformatted images were obtained on the technologist's workstation. This CT examination was performed using dose optimization techniques as appropriate, variously including the following: *Automated exposure control *Adjustment of mA and/or kV according to patient size (this includes techniques or standardized protocols for targeted exams where dose is matched to indication/reason for exam; i.e. extremities or head) *Use of iterative reconstruction technique DLP: 502 mGy-cm FINDINGS: LUNG BASES: The visualized lung bases are unremarkable. LIVER, GALLBLADDER, AND BILIARY TREE: The noncontrast liver is normal in size and contour. No biliary ductal dilatation is present. The gallbladder is surgically absent. PANCREAS: Unremarkable. SPLEEN: Unremarkable. ADRENAL GLANDS: Unremarkable. KIDNEYS AND URETERS: The kidneys are symmetric in size. No hydronephrosis. No renal calculus. No perinephric stranding. BLADDER: No bladder calculus. GASTROINTESTINAL TRACT: Copious stool throughout the colon. No small bowel obstruction. Mild inflammatory changes surrounding the cecum. The appendix is not visualized. ABDOMINAL WALL: No significant hernia is appreciated. LYMPH NODES: No bulky lymphadenopathy. VASCULAR: Unremarkable. PELVIC VISCERA: Uterus is surgically absent. OSSEOUS STRUCTURES: Diffuse osteopenia. Severe multilevel degenerative disc disease. Neurostimulator device lead retained in the right buttock. CT/CT abdomen pelvis wo IV con IMPRESSION: Mild pericecal inflammatory changes. There is fluid in the cecum. Infectious or inflammatory process should be considered. Constipation.
--- NOTE | ~2023-02-25 | XR_ITS ---
EXAMINATION: XR RIBS, RIGHT CLINICAL INFORMATION: Right lateral rib pain, fall. COMPARISON: Chest radiograph 06/30/2022. TECHNIQUE: 3 views of the right ribs were obtained. FINDINGS: Stable prominence of the cardiomediastinal silhouette. Mild diffuse chronic interstitial thickening. No new focal airspace densities. No pleural effusion or pneumothorax. No displaced rib fractures. No acute osseous findings. Right upper quadrant surgical clips are seen. XR/XR ribs RT min 3V w CXR1V IMPRESSION: No acute cardiopulmonary findings. No displaced rib fractures.
--- NOTE | ~2023-02-25 | US_ITS ---
EXAMINATION: US ABDOMEN LIMITED CLINICAL INFORMATION: Right upper quadrant tenderness.. COMPARISON: None available. TECHNIQUE: Real-time imaging of the right upper quadrant abdominal viscera. FINDINGS: PANCREAS: Mostly obscured by bowel gas. The visualized portions of the pancreas are within normal limits. LIVER: Normal. The liver is normal in size. The liver contour is normal. Parenchymal echogenicity is normal. No focal hepatic lesion. There is no intrahepatic biliary duct dilatation seen. GALLBLADDER: There has been a prior cholecystectomy. COMMON BILE DUCT: Common bile duct measures 1.1 cm. RIGHT KIDNEY: Normal. No hydronephrosis. No renal calculi or focal parenchymal lesions. The kidney measures 12.2cm in maximum dimension. FREE FLUID: None. US/US abdomen limited IMPRESSION: Prior cholecystectomy. The common bile duct measures up to 1.1 cm of uncertain significance in a patient status post cholecystectomy.
--- NOTE | 2023-02-25 11:57 | ED_ITS ---
HPI - Abdominal Pain General Chief Complaint: Abdominal Pain Stated Complaint: Abd pain right side Time Seen by Provider: 02/25/23 20:52 Source: patient Mode of arrival: ambulatory Limitations: no limitations History of Present Illness HPI narrative: Patient is a 77-year-old female with history of 77-year-old female with a history of abdominal hyperesthesia, asthma, back pain, cholecystectomy, COPD, depression, diabetes, gallstone pancreatitis presenting to the emergency department complaining of right upper quadrant abdominal/right lateral rib pain. States the pain has been present for approximately 1-1.5 weeks. Denies any nausea, vomiting, diarrhea, constipation. Denies fevers. Denies hematochezia or melena. Cannot report any exacerbating or relieving factors. Denies any recent falls or other injury. Denies cough or shortness of breath, chest pain or palpitations. Has not taken any [id number] medications for her symptoms. MD elicited complaint: abdominal pain Onset (ago): day(s) Pain Consistency: colicky Location: RUQ Severity: moderate Quality: sharp Radiation: none Migration to: no migration Exacerbating factors: nothing Relieving factors: nothing Associated symptoms: denies other symptoms Related Data Home Medications Medication Instructions Recorded Confirmed albuterol sulfate 90 mcg/actuation 2 puff inhalation Q4-6H PRN 04/02/20 11/30/22 aerosol inhaler (ProAir HFA) Shortness Of Breath Or Wheezing aspirin 81 mg tablet,delayed 81 mg PO DAILY 04/02/20 11/30/22 release atorvastatin 40 mg tablet 40 mg PO BEDTIME 04/02/20 11/30/22 multivitamin (Multiple Vitamins 1 tab PO DAILY 04/02/20 11/30/22 tablet) blood sugar diagnostic (TranquilMedTouch #10 ea 11/29/20 11/30/22 Ultra Test strips) lancets 33 gauge (TranquilMedTouch Delica #100 ea 11/29/20 11/30/22 Plus Lancet) levothyroxine 88 mcg tablet 88 mcg PO DAILY@0600 11/29/20 11/30/22 albuterol sulfate 2.5 mg/3 mL 1 amp inhalation Q4-6H PRN dyspnea 12/11/20 11/30/22 (0.083 %) solution for nebulization metformin 500 mg tablet,extended 1,000 mg PO BID@1300,1900 02/04/22 11/30/22 release 24 hr montelukast 10 mg tablet 10 mg PO BEDTIME 05/28/22 11/30/22 acetaminophen 500 mg tablet 1,000 mg PO Q8H PRN 07/21/22 11/30/22 aspirin 81 mg tablet,delayed 81 mg PO DAILY 11/30/22 11/30/22 release (Adult Aspirin Regimen) Previous Rx's Medication Instructions Recorded fluticasone 250 mcg-salmeterol 50 1 ea PO BID #60 ea 08/10/22 mcg/dose blistr powdr for inhalation amlodipine 5 mg tablet 5 mg PO DAILY #60 tabs 11/09/22 metoprolol tartrate 25 mg tablet 25 mg PO BID 90 days #180 tabs 01/01/23 sennosides 8.6 mg capsule (senna) 8.6 mg PO BID PRN constipation #20 02/26/23 caps Allergies Allergy/AdvReac Type Severity Reaction Status Date / Time white fish Allergy Intermediate body Uncoded 11/30/22 13:23 swelling, redness Review of Systems Review of Systems As per HPI. Yes all other systems are reviewed and are negative Constitutional: Reports as per HPI [facility] Past Medical History Medical History (Updated 02/26/23 @ 00:21 by Shruthi Briones NP) COPD (chronic obstructive pulmonary disease) Allergic rhinitis Venous insufficiency Hx of cardiomyopathy LBBB (left bundle branch block) Urge incontinence Brain aneurysm Back pain Restrictive airway disease Bronchial asthma Hemorrhoids Arthritis Depression Hypothyroidism Migraine headache Asthma Cubital tunnel syndrome Abdominal hyperesthesia Altered bowel habits Dyspepsia Gallstone pancreatitis Calculus of gallbladder Lipoma of other skin and subcutaneous tissue Hyperlipidemia DM II (diabetes mellitus, type II), controlled Rotator cuff tear arthropathy of right shoulder Subacromial impingement Subacromial bursitis Surgical History (Updated 02/15/23 @ 12:36 by Jas Olmedo) History of cardiac catheterization Hx of colonoscopy H/O craniotomy S/P surgical manipulation of knee joint History of shoulder surgery History of total right knee replacement History of total left knee replacement Family History Family History Son Hypertension Brother Colon cancer Social History Social History Household Members: None Housing: Apartment Are you a primary intensive care anaesthetist to a significant other at home: No Do you presently have visiting nurse or other home services: Yes Alcohol intake: never Patient Tobacco Use Status: Former Tobacco user Quit Date: 1999 Tobacco use type: Cigarette Smoked in Last 30 Days: No Use of substances other than those prescribed or required for medical reasons: No Advance Directives: No Advance Directives Information Provided: No service: No Current occupational status: disabled Physical Exam ED Vital Signs: Vital Signs - 24 hr 02/25/23 11:58 02/25/23 20:33 02/25/23 23:01 Temperature 97 F 98.2 F 98.1 F Pulse Rate 86 85 75 Respiratory Rate 18 20 16 Blood Pressure 135/99 H 148/61 H 112/67 Pulse Oximetry 94 94 97 Oxygen Delivery Method Room Air Room Air Room Air BMI result Body Mass Index 32.7 Vital signs have been reviewed and appear to be correct. Blood pressure normal. Heart rate normal. Respiratory rate normal. Temperature normal. Oxygen saturation normal. Const General: cooperative, healthy appearing and no acute distress Orientation/consciousness: oriented to person, oriented to place, oriented to time and patient oriented x3 Limitations: no limitations HENMT Head: Yes normocephalic and Yes atraumatic Ears: external ears normal General nose exam: Normal external nose present Face and sinus: Yes face symmetric Mouth: oropharynx normal and moist mucous membranes Throat: Yes uvula midline Eyes Pupils: Equal, round and reactive pupils present Neck Neck: Yes normal visual inspection and Yes supple Chest Chest palpation & inspection: normal inspection of the chest and tenderness rib right mid-axillary line Resp Effort & Inspection: normal respiratory effort and able to speak in complete sentences Auscultation: clear to auscultation bilaterally Cardio Rate: regular rate Rhythm: regular rhythm Heart sounds: S1 normal heart sound present and S2 normal heart sound present GI Inspection: Yes normal to inspection Palpation (GI): Soft to palpation, Tenderness to palpation present (GI) in the RUQ, no guarding, not rigid and No Rebound tenderness present Auscultation: normoactive bowel sounds General: Yes no CVA tenderness Back/Spine/Pelvis Back: no CVA tenderness Skin General skin exam: elasticity normal and turgor normal Neuro General: oriented to person, oriented to place, oriented to time, patient oriented x3, moves all extremities, no focal motor deficits and CN's II-XI intact bilaterally Cranial nerves: Yes Equal, round and reactive pupils present Cognition (Neuro): normal cognition Extrem General: Yes full ROM, Yes no pedal edema and Yes no calf tenderness Psych Mental Status: mental status grossly normal Affect: normal affect Thought process: Normal thought process present Course Course Course Narrative: This is an RME: Additional HPI, ROS, PE not included below will be deferred to primary provider. This is a 77-year-old female, with a history of Abdominal hyperesthesia, asthma, back pain, cholecystectomy, COPD, depression, diabetes, gallstone pancreatitis, presenting to the emergency department for evaluation of right flank, and right upper abdominal pain x 1 week. Denies any fevers, chills, nausea, vomiting or diarrhea. Plan: Labs, UA ordered. Further ER evaluation needed Medical Decision Making Medical Decision Making [facility] Narrative: Patient is a 77-year-old female with history of 77-year-old female with a history of abdominal hyperesthesia, asthma, back pain, cholecystectomy, COPD, depression, diabetes, gallstone pancreatitis presenting to the emergency department complaining of right upper quadrant abdominal/right lateral rib pain. On exam patient is awake, A+Ox3, VS WNL, afebrile, normal neurological exam without focal deficits, physical exam findings as above. Given reported symptoms and physical exam findings, initial differential includes choledocolithiasis, PUD, GERD, rib fracture, pneumonia. Labs notable for no leukocytosis, no anemia no significant electrolyte abnormalities, normal LFTs and bilirubin. No evidence of infection on urinalysis. X-ray notable for no acute rib fractures. CT notable for constipation. Ultrasound shows no evidence of choledocholithiasis. My interpretation is in agreement with the radiologist's interpretation. All results discussed with patient and all questions answered. Patient reports symptoms have improved while she has been in the emergency department. Instructed patient follow-up with primary care provider and splicer helper. Return precautions discussed at bedside. Patient verbalized understanding of and agreement with plan. Will prescribe senna for constipation. Differential Diagnosis Differential Diagnoses: The differential diagnosis associated with the presentation includes As per [facility]. Admission/Observation Consideration of admission/observation: Escalation of care including admission/observation considered Lab Data [facility] Lab Attestation statement: I reviewed the patient's lab results. As per [facility]. 02/25/23 13:57 02/25/23 13:57 Labs: Lab Results 02/25/23 02/25/23 Range/Units 13:57 20:38 WBC 8.4 (4.8-10.8) X10*3/uL RBC 4.91 D (4.20-5.50) X10*6/uL Hgb 14.8 D (12.0-16.0) g/dl Hct 44.9 D (37.0-47.0) % MCV 91.4 (80.0-98.0) fL MCH 30.1 (27.0-33.0) pg MCHC 33.0 (31.0-35.0) g/dl RDW 13.4 (11.0-16.0) % Plt Count 212 (160-400) X10*3/uL MPV 11.4 (9.4-12.3) fL Immature Gran % (Auto) 0.5 H (0.0-0.4) % Neut % (Auto) 60.9 (45-73) % Lymph % (Auto) 30.9 (20-40) % [place] % (Auto) 6.5 (2-11) % Eos % (Auto) 0.8 (0-4) % Baso % (Auto) 0.4 (0-2) % Lymph # (Auto) 2.6 (1.2-4.9) X10*3/uL [place] # (Auto) 0.6 (0.1-1.2) X10*3/uL Eos # (Auto) 0.1 (0.0-0.4) X10*3/uL Baso # (Auto) 0.0 (0.0-0.2) X10*3/uL Abs Immat Gran (auto) 0.04 H (0.00-0.03) X10*3/uL Absolute Neuts (auto) 5.1 (2.0-8.3) x10*3/uL Absolute Nucleated RBC 0.000 (0.0-0.012) X10*3/uL Nucleated RBC % (auto) 0.0 (0.0-0.2) /100WBC Sodium 141 (135-145) mmol/L Potassium 4.9 D (3.3-5.1) mmol/L Chloride 103 (96-108) mmol/L Carbon Dioxide 32 H (22-29) mmol/L Anion Gap 11 L (12-20) BUN 15 (9-16) mg/dL Creatinine 0.80 (0.5-1.4) mg/dL Estim Creat Clear Calc 51.3 Estimated GFR > 60 Random Glucose 168 H (60-115) mg/dL Calcium 10.3 H (8.4-10.2) mg/dL Total Bilirubin 0.8 (0.0-1.0) mg/dL Direct Bilirubin 0.2 (0.0-0.5) mg/dL AST 19 (5-31) U/L ALT 17 (0-31) U/L Alkaline Phosphatase 67 (39-117) U/L Total Protein 8.1 H (6.5-8.0) g/dL Albumin 4.5 (3.5-5.0) g/dL Lipase 55 (8-78) U/L Urine Color Yellow Urine Appearance Clear Urine pH 5.5 (5.0-9.0) Ur Specific [place] 1.025 (1.005-1.025) Urine Protein Negative (Neg-Trace) mg/dL Urine Glucose (UA) Negative (Negative) mg/dL Urine Ketones Negative (Negative) mg/dL Urine Blood Negative (Negative) Urine Nitrite Negative (Negative) Ur Leukocyte Esterase Negative (Negative) Independent Interpretation I performed an independent interpretation of an: Plain X-Ray, Ultrasound and CT Scan Interpretation: No acute rib fractures No evidence of choledocholithiasis CT notable for constipation Radiology Impression Discussion of test interpretation with radiology: I have reviewed the radiologist's reading. Radiologist Impression: XR/XR ribs RT min 3V w CXR1V IMPRESSION: No acute cardiopulmonary findings. No displaced rib fractures. US/US abdomen limited IMPRESSION: Prior cholecystectomy. The common bile duct measures up to 1.1 cm of uncertain significance in a patient status post cholecystectomy. CT/CT abdomen pelvis wo IV con IMPRESSION: Mild pericecal inflammatory changes. There is fluid in the cecum. Infectious or inflammatory process should be considered. Constipation. External Record Review External record reviewed: Inpatient record, Office record and Outpatient record Prescription Management I considered prescription management with: Other Discharge Plan Discharge Clinical Impression: Abdominal pain, Constipation Patient Disposition: Home, Self-Care Instructions: Abdominal Pain (ED) Additional Instructions: You have been evaluated in the emergency department today for abdominal pain. Your evaluation including CT scan, ultrasound, and x-ray did not show evidence of medical conditions requiring emergent intervention at this time. Your CT scan did show evidence of constipation, you are being prescribed senna for this. Please schedule an appointment with your primary care physician and splicer helper. Return to the emergency department if you experience worsening or uncontrolled pain, fevers 100.4? F or greater, recurrent vomiting, inability to tolerate food or fluids by mouth, bloody stools or vomit, black or tarry stools, or any other concerning symptoms. Prescriptions: New senna 8.6 mg capsule 8.6 mg PO BID PRN (Reason: constipation) Qty: 20 0RF No Action fluticasone propion-salmeterol 250-50 mcg/dose blister with device 1 ea PO BID Qty: 60 3RF metoprolol tartrate 25 mg tablet 25 mg PO BID 90 Days Qty: 180 3RF albuterol sulfate 2.5 mg /3 mL (0.083 %) solution for nebulization 1 amp inhalation Q4-6H PRN (Reason: dyspnea) metformin 500 mg tablet extended release 24 hr 1,000 mg PO BID@1300,1900 Rx Instructions: after lunch then after dinner levothyroxine 88 mcg tablet 88 mcg PO DAILY@0600 (DME) lancets [OneTouch Delica Plus Lancet] 33 gauge misc See Rx Instructions Not Applicable .MEDSUPPLY Qty: 100 Rx Instructions: As directed (DME) OneTouch Ultra Test Strip See Rx Instructions Not Applicable DAILY Qty: 10 Rx Instructions: As directed albuterol sulfate [ProAir HFA] 90 mcg/actuation HFA aerosol inhaler 2 puff inhalation Q4-6H PRN (Reason: Shortness Of Breath Or Wheezing) atorvastatin 40 mg tablet 40 mg PO BEDTIME aspirin 81 mg tablet,delayed release (DR/EC) 81 mg PO DAILY multivitamin [Multiple Vitamins] Tablet 1 tab PO DAILY Rx Instructions: take with food montelukast 10 mg tablet 10 mg PO BEDTIME acetaminophen 500 mg tablet 1,000 mg PO Q8H PRN amlodipine 5 mg tablet 5 mg PO DAILY Qty: 60 3RF aspirin [Adult Aspirin Regimen] 81 mg tablet,delayed release (DR/EC) 81 mg PO DAILY
[2023-02-25 11:58] VITALS: BP 135/99; PULSE 86; RESP 18; TEMP 36.1; O2SAT 94; BMI 32.7
[2023-02-25 14:03] LABS: MANUAL DIFF FLAG NO
[2023-02-25 14:05] LABS: Basophils Percent Auto 0.4 % (0-2); Eosinophils Absolute Auto 0.1 X10*3/uL (0.0-0.4); Eosinophils Percent Auto 0.8 % (0-4); Hematocrit 44.9 % (37.0-47.0); Hemoglobin 14.8 g/dl (12.0-16.0); Imm Gran Abs Auto 0.04 X10*3/uL (0.00-0.03); Imm Gran Pct Auto 0.5 % (0.0-0.4); Lymphocytes Absolute Auto 2.6 X10*3/uL (1.2-4.9); Lymphocytes Percent Auto 30.9 % (20-40); Mean Corpuscular Hemoglobin 30.1 pg (27.0-33.0); Mean Corpuscular Volume 91.4 fL (80.0-98.0); Mean Platelet Volume 11.4 fL (9.4-12.3); Monocytes Absolute Auto 0.6 X10*3/uL (0.1-1.2); Monocytes Percent Auto 6.5 % (2-11); Neutrophils Absolute Auto 5.1 x10*3/uL (2.0-8.3); Neutrophils Percent Auto 60.9 % (45-73); Platelet Count 212 X10*3/uL (160-400); Red Blood Count 4.91 X10*6/uL (4.20-5.50); Red Cell Distribution Width 13.4 % (11.0-16.0); White Blood Count 8.4 X10*3/uL (4.8-10.8)
[2023-02-25 14:18] LABS: Alanine Aminotransferase 17 U/L (0-31); Albumin Level 4.5 g/dL (3.5-5.0); Alkaline Phosphatase 67 U/L (39-117); Anion Gap 11 (12-20); Aspartate Amino Transferase 19 U/L (5-31); Bilirubin Direct 0.2 mg/dL (0.0-0.5); Bilirubin Total 0.8 mg/dL (0.0-1.0); Blood Urea Nitrogen 15 mg/dL (9-16); Calcium 10.3 mg/dL (8.4-10.2); Carbon Dioxide 32 mmol/L (22-29); Chloride 103 mmol/L (96-108); Creatinine Clr Calc Pharmacy 51.3; Estimated Glomerular Filt Rate > 60; Glucose Random 168 mg/dL (60-115); Lipase 55 U/L (8-78); Potassium 4.9 mmol/L (3.3-5.1); Sodium 141 mmol/L (135-145); Total Protein 8.1 g/dL (6.5-8.0)
[2023-02-25 20:33] VITALS: BP 148/61; PULSE 85; RESP 20; TEMP 36.8; O2SAT 94
[2023-02-25 21:00] LABS: Appearance Urine Clear; Color Urine Yellow; Glucose Urine UA Negative (Negative); Leukocyte Esterase Urine Negative (Negative); Nitrite Urine Negative (Negative); PH 5.5 (5.0-9.0); Specific Gravity - Urine 1.025 (1.005-1.025); Urine Blood Negative (Negative); Urine Ketones Negative (Negative); Urine Protein Negative (Neg-Trace)
--- NOTE | 2023-02-25 21:16 | ED_ITS ---
HPI - General Adult General Chief complaint: Abdominal Pain Stated complaint: Abd pain right side Time Seen by Provider: 02/25/23 20:52 Source: patient Mode of arrival: ambulatory Limitations: no limitations History of Present Illness HPI narrative: Patient is a 77-year-old female presenting to the emergency department with complaint of right upper abdominal pain/right lateral rib pain for the past 9 days. Patient is stating ?there is a lump there. ? States she has felt she has a lump to her right upper quadrant ever since having her gallbladder removed several years ago. She reports having discussed this with her PCP who advised patient it was not worrisome. She denies any nausea, vomiting, diarrhea, constipation. Denies any hematochezia or melena. Denies fevers. Denies falls or other recent trauma. Denies dysuria, frequency or other urinary symptoms. MD complaint: abdominal pain Onset (ago): day(s) Location: abdomen Radiation: non-radiation Severity: severe Quality: aching Pain Consistency: constant Relieving factors: none Exacerbating factors: none Associated symptoms: denies other symptoms Treatments prior to arrival: none Related Data Home Medications Medication Instructions Recorded Confirmed albuterol sulfate 90 mcg/actuation 2 puff inhalation Q4-6H PRN 04/02/20 11/30/22 aerosol inhaler (ProAir HFA) Shortness Of Breath Or Wheezing aspirin 81 mg tablet,delayed 81 mg PO DAILY 04/02/20 11/30/22 release atorvastatin 40 mg tablet 40 mg PO BEDTIME 04/02/20 11/30/22 multivitamin (Multiple Vitamins 1 tab PO DAILY 04/02/20 11/30/22 tablet) blood sugar diagnostic (AdeyohTouch #10 ea 11/29/20 11/30/22 Ultra Test strips) lancets 33 gauge (AdeyohTouch Delica #100 ea 11/29/20 11/30/22 Plus Lancet) levothyroxine 88 mcg tablet 88 mcg PO DAILY@0600 11/29/20 11/30/22 albuterol sulfate 2.5 mg/3 mL 1 amp inhalation Q4-6H PRN dyspnea 12/11/20 11/30/22 (0.083 %) solution for nebulization metformin 500 mg tablet,extended 1,000 mg PO BID@1300,1900 02/04/22 11/30/22 release 24 hr montelukast 10 mg tablet 10 mg PO BEDTIME 05/28/22 11/30/22 acetaminophen 500 mg tablet 1,000 mg PO Q8H PRN 07/21/22 11/30/22 aspirin 81 mg tablet,delayed 81 mg PO DAILY 11/30/22 11/30/22 release (Adult Aspirin Regimen) Previous Rx's Medication Instructions Recorded fluticasone 250 mcg-salmeterol 50 1 ea PO BID #60 ea 08/10/22 mcg/dose blistr powdr for inhalation amlodipine 5 mg tablet 5 mg PO DAILY #60 tabs 11/09/22 metoprolol tartrate 25 mg tablet 25 mg PO BID 90 days #180 tabs 01/01/23 sennosides 8.6 mg capsule (senna) 8.6 mg PO BID PRN constipation #20 02/26/23 caps Allergies Allergy/AdvReac Type Severity Reaction Status Date / Time white fish Allergy Intermediate body Uncoded 11/30/22 13:23 swelling, redness Review of Systems 2 Review of Systems: As per HPI. Yes all other systems are reviewed and are negative [facility] Past Medical History Medical History (Updated 02/26/23 @ 00:21 by Shruthi Briones NP) COPD (chronic obstructive pulmonary disease) Allergic rhinitis Venous insufficiency Hx of cardiomyopathy LBBB (left bundle branch block) Urge incontinence Brain aneurysm Back pain Restrictive airway disease Bronchial asthma Hemorrhoids Arthritis Depression Hypothyroidism Migraine headache Asthma Cubital tunnel syndrome Abdominal hyperesthesia Altered bowel habits Dyspepsia Gallstone pancreatitis Calculus of gallbladder Lipoma of other skin and subcutaneous tissue Hyperlipidemia DM II (diabetes mellitus, type II), controlled Rotator cuff tear arthropathy of right shoulder Subacromial impingement Subacromial bursitis Surgical History (Updated 02/15/23 @ 12:36 by Jas Olmedo) History of cardiac catheterization Hx of colonoscopy H/O craniotomy S/P surgical manipulation of knee joint History of shoulder surgery History of total right knee replacement History of total left knee replacement Family History Family History Son Hypertension Brother Colon cancer Social History Social History Household Members: None Housing: Apartment Are you a primary patient centered care specialist to a significant other at home: No Do you presently have visiting nurse or other home services: Yes Alcohol intake: never Patient Tobacco Use Status: Former Tobacco user Quit Date: 1999 Tobacco use type: Cigarette Smoked in Last 30 Days: No Use of substances other than those prescribed or required for medical reasons: No Advance Directives: No Advance Directives Information Provided: No service: No Current occupational status: disabled Physical Exam ED Vital Signs: Vital Signs - 24 hr 02/25/23 11:58 02/25/23 20:33 02/25/23 23:01 Temperature 97 F 98.2 F 98.1 F Pulse Rate 86 85 75 Respiratory Rate 18 20 16 Blood Pressure 135/99 H 148/61 H 112/67 Pulse Oximetry 94 94 97 Oxygen Delivery Method Room Air Room Air Room Air BMI result Body Mass Index 32.7 Vital signs have been reviewed and appear to be correct. Blood pressure elevated. Heart rate normal. Respiratory rate normal. Temperature normal. Oxygen saturation normal. Medical Decision Making Lab Data 02/25/23 13:57 02/25/23 13:57 Labs: Lab Results 02/25/23 02/25/23 Range/Units 13:57 20:38 WBC 8.4 (4.8-10.8) X10*3/uL RBC 4.91 D (4.20-5.50) X10*6/uL Hgb 14.8 D (12.0-16.0) g/dl Hct 44.9 D (37.0-47.0) % MCV 91.4 (80.0-98.0) fL MCH 30.1 (27.0-33.0) pg MCHC 33.0 (31.0-35.0) g/dl RDW 13.4 (11.0-16.0) % Plt Count 212 (160-400) X10*3/uL MPV 11.4 (9.4-12.3) fL Immature Gran % (Auto) 0.5 H (0.0-0.4) % Neut % (Auto) 60.9 (45-73) % Lymph % (Auto) 30.9 (20-40) % [place] % (Auto) 6.5 (2-11) % Eos % (Auto) 0.8 (0-4) % Baso % (Auto) 0.4 (0-2) % Lymph # (Auto) 2.6 (1.2-4.9) X10*3/uL [place] # (Auto) 0.6 (0.1-1.2) X10*3/uL Eos # (Auto) 0.1 (0.0-0.4) X10*3/uL Baso # (Auto) 0.0 (0.0-0.2) X10*3/uL Abs Immat Gran (auto) 0.04 H (0.00-0.03) X10*3/uL Absolute Neuts (auto) 5.1 (2.0-8.3) x10*3/uL Absolute Nucleated RBC 0.000 (0.0-0.012) X10*3/uL Nucleated RBC % (auto) 0.0 (0.0-0.2) /100WBC Sodium 141 (135-145) mmol/L Potassium 4.9 D (3.3-5.1) mmol/L Chloride 103 (96-108) mmol/L Carbon Dioxide 32 H (22-29) mmol/L Anion Gap 11 L (12-20) BUN 15 (9-16) mg/dL Creatinine 0.80 (0.5-1.4) mg/dL Estim Creat Clear Calc 51.3 Estimated GFR > 60 Random Glucose 168 H (60-115) mg/dL Calcium 10.3 H (8.4-10.2) mg/dL Total Bilirubin 0.8 (0.0-1.0) mg/dL Direct Bilirubin 0.2 (0.0-0.5) mg/dL AST 19 (5-31) U/L ALT 17 (0-31) U/L Alkaline Phosphatase 67 (39-117) U/L Total Protein 8.1 H (6.5-8.0) g/dL Albumin 4.5 (3.5-5.0) g/dL Lipase 55 (8-78) U/L Urine Color Yellow Urine Appearance Clear Urine pH 5.5 (5.0-9.0) Ur Specific [place] 1.025 (1.005-1.025) Urine Protein Negative (Neg-Trace) mg/dL Urine Glucose (UA) Negative (Negative) mg/dL Urine Ketones Negative (Negative) mg/dL Urine Blood Negative (Negative) Urine Nitrite Negative (Negative) Ur Leukocyte Esterase Negative (Negative) Discharge Plan Discharge Clinical Impression: Abdominal pain, Constipation Patient Disposition: Home, Self-Care Instructions: Abdominal Pain (ED) Additional Instructions: You have been evaluated in the emergency department today for abdominal pain. Your evaluation including CT scan, ultrasound, and x-ray did not show evidence of medical conditions requiring emergent intervention at this time. Your CT scan did show evidence of constipation, you are being prescribed senna for this. Please schedule an appointment with your primary care physician and recruiting manager. Return to the emergency department if you experience worsening or uncontrolled pain, fevers 100.4? F or greater, recurrent vomiting, inability to tolerate food or fluids by mouth, bloody stools or vomit, black or tarry stools, or any other concerning symptoms. Prescriptions: New senna 8.6 mg capsule 8.6 mg PO BID PRN (Reason: constipation) Qty: 20 0RF No Action fluticasone propion-salmeterol 250-50 mcg/dose blister with device 1 ea PO BID Qty: 60 3RF metoprolol tartrate 25 mg tablet 25 mg PO BID 90 Days Qty: 180 3RF albuterol sulfate 2.5 mg /3 mL (0.083 %) solution for nebulization 1 amp inhalation Q4-6H PRN (Reason: dyspnea) metformin 500 mg tablet extended release 24 hr 1,000 mg PO BID@1300,1900 Rx Instructions: after lunch then after dinner levothyroxine 88 mcg tablet 88 mcg PO DAILY@0600 (DME) lancets [OneTouch Delica Plus Lancet] 33 gauge misc See Rx Instructions Not Applicable .MEDSUPPLY Qty: 100 Rx Instructions: As directed (DME) OneTouch Ultra Test Strip See Rx Instructions Not Applicable DAILY Qty: 10 Rx Instructions: As directed albuterol sulfate [ProAir HFA] 90 mcg/actuation HFA aerosol inhaler 2 puff inhalation Q4-6H PRN (Reason: Shortness Of Breath Or Wheezing) atorvastatin 40 mg tablet 40 mg PO BEDTIME aspirin 81 mg tablet,delayed release (DR/EC) 81 mg PO DAILY multivitamin [Multiple Vitamins] Tablet 1 tab PO DAILY Rx Instructions: take with food montelukast 10 mg tablet 10 mg PO BEDTIME acetaminophen 500 mg tablet 1,000 mg PO Q8H PRN amlodipine 5 mg tablet 5 mg PO DAILY Qty: 60 3RF aspirin [Adult Aspirin Regimen] 81 mg tablet,delayed release (DR/EC) 81 mg PO DAILY Interventions: ED Discharge Assessment Last Done: 02/26/23 00:26 Discharge Date/Time: 02/26/23 00:30
[2023-02-25 23:01] VITALS: BP 112/67; PULSE 75; RESP 16; TEMP 36.7; O2SAT 97
== END 2023-02-26 00:30 | disposition home or self-care (01) ==
PROVIDERS: Physician Assistant Medical; Emergency Provider Student in an Organized Health Care Education/Training Program
DX: K59.00 Constipation, unspecified (principal); R10.11 Right upper quadrant pain; E11.9 Type 2 diabetes mellitus without complications; E78.5 Hyperlipidemia, unspecified; Z87.891 Personal history of nicotine dependence; Z79.84 Long term (current) use of oral hypoglycemic drugs; Z79.899 Other long term (current) drug therapy; Z79.82 Long term (current) use of aspirin; Z79.02 Long term (current) use of antithrombotics/antiplatelets
CPT/HCPCS: 36415; 71101; 74176; 76705; 80048; 80076; 81003; 83690; 85025; 99284

== ENCOUNTER 2023-03-11 10:26 | Outpatient (AMB) | payer OTHER, SELFPAY ==
[2023-03-11 10:47] VITALS: BP 124/64; PULSE 77; O2SAT 97; BMI 32.2
--- NOTE | 2023-03-11 10:47 | A.OFFVIS_ITS ---
Intake Vital Signs 03/11/23 10:47 Height 5 ft Weight 165 lb BMI 32.2 BP 124/64 Blood Pressure Location Lt brachial Position Sitting Pulse 77 Pulse Source Pulse Oximeter Pulse Oximetry (%) 97 Oxygen Delivery Method Room Air Intake Visit Reasons: copd Intake Note: pt is here for follow up and states she had covid but has no lingering affects, just a lot of fatigue when walking. Some wheezing going on. pt feels not much relief from wixela, sometimes albuterol. Allergies white fish Allergy (Intermediate, Uncoded 03/11/23 11:08) body swelling, redness Medication List - Last Reconciled 03/11/23 by Kulwant Terrell MD acetaminophen 1,000 mg PO Q8H PRN albuterol sulfate 1 amp inhalation Q4-6H PRN albuterol sulfate 90 mcg/actuation (ProAir HFA) 2 puffs inhalation Q4-6H PRN alendronate 70 mg PO QWEEK amlodipine 2.5 mg PO DAILY aspirin 81 mg PO DAILY atorvastatin 40 mg PO BEDTIME blood sugar diagnostic ([employer] Ultra Test strips) As directed cetirizine 5 mg PO QAM fluticasone propion-salmeterol 250-50 mcg/dose 1 ea PO BID lancets ([employer] Photovoltaic TechnologyTouch Delica Plus Lancet) As directed levothyroxine 88 mcg PO DAILY@0600 magnesium oxide 400 mg PO Q OTHER DAY metformin ER 1,000 mg PO BID@1300,1900 metoprolol tartrate 25 mg PO BID 90 days montelukast 10 mg PO BEDTIME multivitamin (Multiple Vitamins tablet) 1 tab PO DAILY pantoprazole 40 mg PO DAILY piroxicam 10 - 20 mg PO QAM repaglinide 3 mg PO TID sennosides (senna) 8.6 mg PO BID PRN Do you need a note to return to daycare/school/sports/work: No HPI copd HPI Details JAYLEN is 77 years old very pleasant female who is coming for follow-up after 6 months. She quit smoking many years ago. She does have mild to moderate degree of COPD but it is remaining very stable. She suffered from COVID infection 2 months ago and recovered right at home, without any residual respiratory symptoms, but did have some muscle aches and general weakness for a few weeks. Her gait is slow so she does not get short of breath when walking, She complains of a few bouts of wheezing at night when she sleeps, a and she has raised her head side with 2 pillows. During the daytime she uses Wixela love 1 inhalation twice a day and it keeps her lungs clear. FOR[facility]LY [facility] Medical History COPD (chronic obstructive pulmonary disease) Allergic rhinitis Venous insufficiency Hx of cardiomyopathy LBBB (left bundle branch block) Urge incontinence Brain aneurysm Back pain Restrictive airway disease Bronchial asthma Hemorrhoids Arthritis Depression Hypothyroidism Migraine headache Asthma Cubital tunnel syndrome Abdominal hyperesthesia Altered bowel habits Dyspepsia Gallstone pancreatitis Calculus of gallbladder Lipoma of other skin and subcutaneous tissue Hyperlipidemia DM II (diabetes mellitus, type II), controlled Rotator cuff tear arthropathy of right shoulder Subacromial impingement Subacromial bursitis Surgical History History of cardiac catheterization Hx of colonoscopy H/O craniotomy S/P surgical manipulation of knee joint History of shoulder surgery History of total right knee replacement History of total left knee replacement Family History Son Hypertension Brother Colon cancer Social History Household Members: None Housing: Apartment Are you a primary managed care director to a significant other at home: No Do you presently have visiting nurse or other home services: Yes Alcohol intake: never Patient Tobacco Use Status: Former Tobacco user Quit Date: 1999 Tobacco use type: Cigarette service: No Current occupational status: disabled Review of Systems Const All systems reviewed & are unremarkable except as noted in HPI and below Eyes Reports no additional complaints ENT Reports nasal congestion (Mild off and on) Card Denies chest pain, Denies irregular heart rhythm and Denies leg edema Resp Reports as per HPI GI Reports heartburn (Being treated for GERD symptoms) Reports urinary incontinence (Mild, controlled with med) Musc Reports back pain Skin/Breast Reports system reviewed and no additional complaints, except as documented Neuro Reports no additional complaints Psych Reports no additional complaints Physical Exam Vital Signs: Last Vital Signs Pulse 77 03/11/23 10:47 BP 124/64 03/11/23 10:47 Pulse Ox 97 03/11/23 10:47 Oxygen Delivery Method Room Air 03/11/23 10:47 BMI result Body Mass Index 32.2 Const General: comfortable, no acute distress, alert and awake Orientation/consciousness: patient oriented x3 HEENT Head: Yes normal to inspection General nose exam: No nasal polyps present and No nasal discharge present Face and sinus: Yes sinuses nontender Mouth: oropharynx normal Throat: Yes posterior oropharynx normal Eyes General: appearance normal, both eyes and all related structures Neck Neck: Yes normal visual inspection, Yes no lymphadenopathy, Yes trachea midline and Yes no JVD Thyroid: Thyroid normal Chest Chest palpation & inspection: normal inspection of the chest, normal palpation of entire chest wall and no tenderness Resp Other: Percussion note is resonant, breath sounds are distant with prolonged expiratory phase. No wheezes rhonchi or crepitations are heard today. Cardio Palpation: normal PMI Rate: regular rate Rhythm: regular rhythm Heart sounds: no gallops and no murmurs GI Palpation (GI): Soft to palpation, nontender, No hepatosplenomegaly present and no masses Auscultation: normal bowel sounds Back/Spine/Pelvis Thoracic/Lumbar Spine: thoracic and lumbar spine normal to inspection, thoraco- lumbar ROM limited and thoraco-lumbar spasm Skin General skin exam: no rashes or lesions noted Neuro General: patient oriented x3, No gait normal (Gait is slightly impaired she uses cane when she goes outdoors) and no focal motor deficits Cranial nerves: Yes CN's II-XII intact bilaterally Extrem General: Yes normal to inspection, No no joint enlargement (Has had bilateral total knee replacements, knees stiff and slightly tender), Yes no clubbing, cyanosis or edema and Yes no calf tenderness Psych Appearance: grossly normal and well kempt Speech and movement: Normal speech and movement present Assessment & Plan Assessment & Plan (1) COPD (chronic obstructive pulmonary disease): Comment: Her COPD is stable and well controlled . Code(s): J44.9 - Chronic obstructive pulmonary disease, unspecified Plan: Advised to continue using Wixela 250-51 inhalation b.i.d. And ProAir 2 puffs Q 4-6 hours only p.r.n.. (2) Allergic rhinitis: Comment: Mild intermittent, stable and controlled at this time. Code(s): J30.9 - Allergic rhinitis, unspecified Plan: CETRAZINE 5 mg once a day MONTELUKAST 10 MG DAILY. (3) Restrictive airway disease: Comment: As per her previous PFT she has mild to moderate degree of restrictive pulmonary disorder, which is most likely secondary to her obesity and poor efforts. Patient has been advised to keep on doing deep breathing exercises during the daytime., Code(s): J98.4 - Other disorders of lung Plan: Advised to keep on doing deep breathing exercises 3 times a day Coding Level of Care Code Est Pt Level 3 (92718) Diagnoses COPD (chronic obstructive pulmonary disease) J44.9 Allergic rhinitis J30.9 Restrictive airway disease J98.4
== END 2023-03-11 11:15 | disposition home or self-care (01) ==
PROVIDERS: PCP Family Medicine; Visit Provider Internal Medicine
DX: J44.9 Chronic obstructive pulmonary disease, unspecified (principal); J30.9 Allergic rhinitis, unspecified; J98.4 Other disorders of lung
CPT/HCPCS: 99213

== ENCOUNTER → 2023-03-11 10:26 | Outpatient (BNVA) | payer OTHER, SELFPAY | PROVIDERS: PCP Family Medicine; Visit Provider Internal Medicine | DX: J44.9 Chronic obstructive pulmonary disease, unspecified (principal); J30.9 Allergic rhinitis, unspecified; J98.4 Other disorders of lung | CPT/HCPCS: 99212 ==

== ENCOUNTER 2023-04-10 16:41 | Emergency (ER) | payer OTHER, SELFPAY ==
--- NOTE | ~2023-04-10 | XR_ITS ---
EXAMINATION: XR CHEST CLINICAL INFORMATION: Chest pain COMPARISON: 02/25/2023 TECHNIQUE: Frontal view of the chest was obtained. FINDINGS: No significant abnormality is noted involving the heart, lungs, mediastinum, bony thorax or soft tissues. Some minimal left basilar atelectasis is present. Degenerative changes are present in the right shoulder joint. Biconvex thoracolumbar scoliosis with degenerative changes. XR/XR chest 1V IMPRESSION: No acute intrathoracic disease.
[2023-04-10 16:51] VITALS: BP 142/70; PULSE 80; O2SAT 97
--- NOTE | 2023-04-10 16:53 | ECG_ITS ---
Test Reason : CHEST PAIN Blood Pressure : / mmHG Vent. Rate : 082 BPM Atrial Rate : 082 BPM P-R Int : 174 ms QRS Dur : 130 ms QT Int : 382 ms P-R-T Axes : 021 -03 136 degrees QTc Int : 446 ms Normal sinus rhythm Left bundle branch block Abnormal ECG When compared with ECG of 07-FEB-2021 12:49, Left bundle branch block is now Present Referred By: Tiesha Christopher Electronically Signed By:JUAN PENA
[2023-04-10 17:07] VITALS: BP 128/69; PULSE 80; RESP 20; O2SAT 86; BMI 35.4
--- NOTE | 2023-04-10 17:17 | ED_ITS ---
HPI - Chest Pain General Chief Complaint: Chest Pain Stated Complaint: chest pain 10, vomiting all morning Time Seen by Provider: 04/10/23 16:50 History of Present Illness HPI narrative: Patient is a 77-year-old female presents today with having chest pain. She has a history of diabetes, hypertension, hypercholesterolemia, COPD. Patient presented with having chest pain that lasted for about an hour. Had some sweating with it. There has no fever no chills. The chest pain has gone away since. No cough no congestion or upper respiratory symptoms. No diaphoresis. Patient is from home. Related Data Home Medications Medication Instructions Recorded Confirmed albuterol sulfate 90 mcg/actuation 2 puff inhalation Q4-6H PRN 04/02/20 11/30/22 aerosol inhaler (ProAir HFA) Shortness Of Breath Or Wheezing aspirin 81 mg tablet,delayed 81 mg PO DAILY 04/02/20 11/30/22 release atorvastatin 40 mg tablet 40 mg PO BEDTIME 04/02/20 11/30/22 multivitamin (Multiple Vitamins 1 tab PO DAILY 04/02/20 11/30/22 tablet) blood sugar diagnostic ([employer]makerTouch #10 ea 11/29/20 11/30/22 Ultra Test strips) lancets 33 gauge ([employer]Touch Delica #100 ea 11/29/20 11/30/22 Plus Lancet) levothyroxine 88 mcg tablet 88 mcg PO DAILY@0600 11/29/20 11/30/22 albuterol sulfate 2.5 mg/3 mL 1 amp inhalation Q4-6H PRN dyspnea 12/11/20 11/30/22 (0.083 %) solution for nebulization metformin 500 mg tablet,extended 1,000 mg PO BID@1300,1900 02/04/22 11/30/22 release 24 hr montelukast 10 mg tablet 10 mg PO BEDTIME 05/28/22 11/30/22 acetaminophen 500 mg tablet 1,000 mg PO Q8H PRN 07/21/22 11/30/22 alendronate 70 mg tablet 70 mg PO QWEEK 03/11/23 amlodipine 5 mg tablet 2.5 mg PO DAILY 03/11/23 cetirizine 5 mg tablet 5 mg PO QAM 03/11/23 magnesium oxide 400 mg (241.3 mg 400 mg PO Q OTHER DAY 03/11/23 magnesium) tablet pantoprazole 40 mg tablet,delayed 40 mg PO DAILY 03/11/23 release piroxicam 10 mg capsule 10 - 20 mg PO QAM 03/11/23 repaglinide 2 mg tablet 3 mg PO TID 03/11/23 Previous Rx's Medication Instructions Recorded sennosides 8.6 mg capsule (senna) 8.6 mg PO BID PRN constipation #20 02/26/23 caps fluticasone 250 mcg-salmeterol 50 1 ea PO BID #60 ea 04/08/23 mcg/dose blistr powdr for inhalation metoprolol tartrate 25 mg tablet 25 mg PO BID 90 days #180 tabs 04/09/23 Allergies Allergy/AdvReac Type Severity Reaction Status Date / Time white fish Allergy Intermediate body Uncoded 03/11/23 11:08 swelling, redness Review of Systems 2 Review of Systems: No fever no chills no diaphoresis Yes all other systems are reviewed and are negative PMFSH Past Medical History Attestation statement: The following information was validated with the patient. Source: unable to obtain Onset Date is defined in the Problem List Problems that require an onset date and time if occurred within 24 hrs of arrival to the ED Aortic Dissection and Rupture; Neurologic impairment; Cardiopulmonary Arrest; Endotracheal Intubation; Insertion or Replacement of Mechanical Circulatory Assist Device Medical History COPD (chronic obstructive pulmonary disease) Allergic rhinitis Venous insufficiency Hx of cardiomyopathy LBBB (left bundle branch block) Urge incontinence Brain aneurysm Back pain Restrictive airway disease Bronchial asthma Hemorrhoids Arthritis Depression Hypothyroidism Migraine headache Asthma Cubital tunnel syndrome Abdominal hyperesthesia Altered bowel habits Dyspepsia Gallstone pancreatitis Calculus of gallbladder Lipoma of other skin and subcutaneous tissue Hyperlipidemia DM II (diabetes mellitus, type II), controlled Rotator cuff tear arthropathy of right shoulder Subacromial impingement Subacromial bursitis Surgical History History of cardiac catheterization Hx of colonoscopy H/O craniotomy S/P surgical manipulation of knee joint History of shoulder surgery History of total right knee replacement History of total left knee replacement Family History Family History Son Hypertension Brother Colon cancer Social History Social History Household Members: None Housing: Apartment Are you a primary wound care physician to a significant other at home: No Do you presently have visiting nurse or other home services: Yes Alcohol intake: never Patient Tobacco Use Status: Former Tobacco user Quit Date: 1999 Tobacco use type: Cigarette Advance Directives: No Advance Directives Information Provided: No service: No Current occupational status: disabled Physical Exam 2 Vital Signs: Vital Signs: Last Vital Signs Temp 96.7 F L 04/10/23 19:16 Pulse 75 04/10/23 19:16 Resp 22 H 04/10/23 19:16 BP 138/67 04/10/23 19:16 Pulse Ox 93 04/10/23 19:16 O2 Del Method Room Air, Nasal C annula 04/10/23 19:16 O2 Flow Rate 2 04/10/23 19:16 BMI result Body Mass Index 35.4 Appearance: Alert. Oriented X3. No acute distress. Eyes: Pupils equal, round and reactive to light. ENT: Pharynx normal. Neck: Normal inspection. Neck supple. No lymph nodes noted. No crepitus CVS: Normal heart rate and rhythm. Pulses normal. Normal S1 and S2 Respiratory: No respiratory distress. Breath sounds normal. No Wheezing. No rales Abdomen: Soft and nontender. No rigidity. No distention. good BS x4 Skin: Skin warm and dry. Normal skin color. Normal skin turgor. Extremities: No lower extremity edema. Neurovascular intact to all extremities. No Lacerations. No Rash Neuro: Oriented X 3. No motor deficit. No sensory deficit. Moving all extermities. No slurred speech Medical Decision Making Medical Decision Making MDM Narrative: Patient's chest pain atypical on arrival the pain has already gone. Two sets of cardiac enzymes are negative. No fever no chills. My interpretation patient's chest x-ray is grossly negative. My interpretation patient's EKG showed a sinus pattern heart rate is 80 there is a left bundle-branch block noted. Although similar pattern was present there was no full left bundle-branch block on previous EKG. Two sets of cardiac enzymes was done. They both negative. The finding was discussed with cardiology Dr. Mccall. At this time felt comfortable with follow-up on an outpatient basis closely as patient's chest pain was atypical 2 sets of enzymes negative electrolytes unremarkable. Currently in stable condition. Pain-free. Differential Diagnosis Differential Diagnoses: The differential diagnosis associated with the presentation includes Chest pain secondary to ACS, pneumonia, pneumothorax, PE Admission/Observation Consideration of admission/observation: Escalation of care including admission/observation considered Lab Data MDM Lab Attestation statement: I reviewed the patient's lab results. 04/10/23 17:19 04/10/23 17:19 Labs: Lab Results 04/10/23 04/10/23 04/10/23 Range/Units 17:19 18:05 18:42 WBC 12.2 H (4.8-10.8) X10*3/uL RBC 4.76 (4.20-5.50) X10*6/uL Hgb 14.2 (12.0-16.0) g/dl Hct 42.8 (37.0-47.0) % MCV 89.9 (80.0-98.0) fL MCH 29.8 (27.0-33.0) pg MCHC 33.2 (31.0-35.0) g/dl RDW 13.4 (11.0-16.0) % Plt Count 196 (160-400) X10*3/uL MPV 12.0 (9.4-12.3) fL Immature Gran % (Auto) 0.5 H (0.0-0.4) % Neut % (Auto) 85.0 H (45-73) % Lymph % (Auto) 9.4 L (20-40) % Davidson % (Auto) 4.6 (2-11) % Eos % (Auto) 0.2 (0-4) % Baso % (Auto) 0.3 (0-2) % Lymph # (Auto) 1.1 L (1.2-4.9) X10*3/uL Davidson # (Auto) 0.6 (0.1-1.2) X10*3/uL Eos # (Auto) 0.0 (0.0-0.4) X10*3/uL Baso # (Auto) 0.0 (0.0-0.2) X10*3/uL Abs Immat Gran (auto) 0.06 H (0.00-0.03) X10*3/uL Absolute Neuts (auto) 10.4 H (2.0-8.3) x10*3/uL Absolute Nucleated RBC 0.000 (0.0-0.012) X10*3/uL Nucleated RBC % (auto) 0.0 (0.0-0.2) /100WBC Sodium 142 (135-145) mmol/L Potassium 4.4 (3.3-5.1) mmol/L Chloride 103 (96-108) mmol/L Carbon Dioxide 30 H (22-29) mmol/L Anion Gap 13 (12-20) BUN 20 H (9-16) mg/dL Creatinine 0.70 (0.5-1.4) mg/dL Estim Creat Clear Calc 70.8 Estimated GFR > 60 Random Glucose 198 H (60-115) mg/dL Calcium 10.4 H (8.4-10.2) mg/dL Total Bilirubin 0.9 (0.0-1.0) mg/dL Direct Bilirubin 0.5 (0.0-0.5) mg/dL AST 182 H (5-31) U/L ALT 95 H (0-31) U/L Alkaline Phosphatase 108 (39-117) U/L Troponin I High Sens < 2.7 < 2.7 (<3.5-17.0) ng/L Total Protein 7.4 (6.5-8.0) g/dL Albumin 4.1 (3.5-5.0) g/dL Lipase 62 (8-78) U/L Urine Color Yellow Urine Appearance Turbid Urine pH 7.5 (5.0-9.0) Ur Specific [place] 1.020 (1.005-1.025) Urine Protein Negative (Neg-Trace) mg/dL Urine Glucose (UA) Negative (Negative) mg/dL Urine Ketones Negative (Negative) mg/dL Urine Blood Negative (Negative) Urine Nitrite Negative (Negative) Ur Leukocyte Esterase Negative (Negative) Urine RBC 0-2 (0-2) /HPF Urine WBC 0-5 (0-5) /HPF Ur Squamous Epith Cells 0-2 (0-2) /HPF Urine Bacteria None Seen (None Seen) Hyaline Casts 0-2 (0-2) /LPF Independent Interpretation I performed an independent interpretation of an: EKG (Sinus heart rate is 90 there is a left bundle branch pattern there is no Sgarbossa criteria) and Plain X-Ray (Chest x-ray grossly negative for pneumonia pneumothorax) External Record Review External record reviewed: Inpatient record Discharge Plan Discharge Clinical Impression: Chest pain Patient Disposition: Home, Self-Care Instructions: Chest Pain (DC) Prescriptions: No Action fluticasone propion-salmeterol 250-50 mcg/dose blister with device 1 ea PO BID Qty: 60 3RF metoprolol tartrate 25 mg tablet 25 mg PO BID 90 Days Qty: 180 3RF albuterol sulfate 2.5 mg /3 mL (0.083 %) solution for nebulization 1 amp inhalation Q4-6H PRN (Reason: dyspnea) metformin 500 mg tablet extended release 24 hr 1,000 mg PO BID@1300,1900 Rx Instructions: after lunch then after dinner senna 8.6 mg capsule 8.6 mg PO BID PRN (Reason: constipation) Qty: 20 0RF levothyroxine 88 mcg tablet 88 mcg PO DAILY@0600 (DME) lancets [OneTouch Delica Plus Lancet] 33 gauge misc See Rx Instructions Not Applicable .MEDSUPPLY Qty: 100 Rx Instructions: As directed (DME) OneTouch Ultra Test Strip See Rx Instructions Not Applicable DAILY Qty: 10 Rx Instructions: As directed albuterol sulfate [ProAir HFA] 90 mcg/actuation HFA aerosol inhaler 2 puff inhalation Q4-6H PRN (Reason: Shortness Of Breath Or Wheezing) atorvastatin 40 mg tablet 40 mg PO BEDTIME aspirin 81 mg tablet,delayed release (DR/EC) 81 mg PO DAILY multivitamin [Multiple Vitamins] Tablet 1 tab PO DAILY Rx Instructions: take with food montelukast 10 mg tablet 10 mg PO BEDTIME acetaminophen 500 mg tablet 1,000 mg PO Q8H PRN repaglinide 2 mg tablet 3 mg PO TID amlodipine 5 mg tablet 2.5 mg PO DAILY pantoprazole 40 mg tablet,delayed release (DR/EC) 40 mg PO DAILY cetirizine 5 mg tablet 5 mg PO QAM alendronate 70 mg tablet 70 mg PO QWEEK piroxicam 10 mg capsule 10 - 20 mg PO QAM magnesium oxide 400 mg (241.3 mg magnesium) tablet 400 mg PO Q OTHER DAY Referrals: Ian He MD [Physician] - 04/13/23
[2023-04-10 17:24] LABS: MANUAL DIFF FLAG NO
[2023-04-10 17:42] LABS: Alanine Aminotransferase 95 U/L (0-31); Albumin Level 4.1 g/dL (3.5-5.0); Alkaline Phosphatase 108 U/L (39-117); Anion Gap 13 (12-20); Aspartate Amino Transferase 182 U/L (5-31); Bilirubin Direct 0.5 mg/dL (0.0-0.5); Bilirubin Total 0.9 mg/dL (0.0-1.0); Blood Urea Nitrogen 20 mg/dL (9-16); Calcium 10.4 mg/dL (8.4-10.2); Carbon Dioxide 30 mmol/L (22-29); Chloride 103 mmol/L (96-108); Creatinine Clr Calc Pharmacy 70.8; Estimated Glomerular Filt Rate > 60; Glucose Random 198 mg/dL (60-115); Lipase 62 U/L (8-78); Potassium 4.4 mmol/L (3.3-5.1); Sodium 142 mmol/L (135-145); Total Protein 7.4 g/dL (6.5-8.0)
[2023-04-10 17:55] LABS: Troponin-I High Sensitivity < 2.7 ng/L (<3.5-17.0)
[2023-04-10 18:11] LABS: Appearance Urine Turbid; Color Urine Yellow; Glucose Urine UA Negative (Negative); Leukocyte Esterase Urine Negative (Negative); Nitrite Urine Negative (Negative); PH 7.5 (5.0-9.0); Urine Blood Negative (Negative); Urine Ketones Negative (Negative); Urine Protein Negative (Neg-Trace)
[2023-04-10 18:16] LABS: Bacteria Urine None Seen (None Seen); Hyaline Casts Urine 0-2 /LPF (0-2); RBC Urine 0-2 /HPF (0-2); Squamous Epithelial Cell Urine 0-2 /HPF (0-2); WBC Urine 0-5 /HPF (0-5)
[2023-04-10 18:16] LABS: Basophils Percent Auto 0.3 % (0-2); Eosinophils Percent Auto 0.2 % (0-4); Hematocrit 42.8 % (37.0-47.0); Hemoglobin 14.2 g/dl (12.0-16.0); Imm Gran Abs Auto 0.06 X10*3/uL (0.00-0.03); Imm Gran Pct Auto 0.5 % (0.0-0.4); Lymphocytes Absolute Auto 1.1 X10*3/uL (1.2-4.9); Lymphocytes Percent Auto 9.4 % (20-40); Mean Corpuscular HGB Conc 33.2 g/dl (31.0-35.0); Mean Corpuscular Hemoglobin 29.8 pg (27.0-33.0); Mean Corpuscular Volume 89.9 fL (80.0-98.0); Monocytes Absolute Auto 0.6 X10*3/uL (0.1-1.2); Monocytes Percent Auto 4.6 % (2-11); Neutrophils Absolute Auto 10.4 x10*3/uL (2.0-8.3); Platelet Count 196 X10*3/uL (160-400); Red Blood Count 4.76 X10*6/uL (4.20-5.50); Red Cell Distribution Width 13.4 % (11.0-16.0); White Blood Count 12.2 X10*3/uL (4.8-10.8)
[2023-04-10 19:15] LABS: Troponin-I High Sensitivity < 2.7 ng/L (<3.5-17.0)
[2023-04-10 19:16] VITALS: BP 138/67; PULSE 75; RESP 22; TEMP 35.9; O2SAT 93
--- NOTE | 2023-04-10 19:23 | PC.NURSE ---
this rn assumed care of pt. pt resting in stretcher comfortably at this time. pt denies chest pain and SOB. no new orders.
--- NOTE | 2023-04-10 20:04 | PC.NURSE ---
pt transported outside by this rn in a wheelchair.
== END 2023-04-10 20:15 | disposition home or self-care (01) ==
PROVIDERS: Emergency Provider Emergency Medicine Emergency Medical Services
DX: R07.9 Chest pain, unspecified (principal); E11.9 Type 2 diabetes mellitus without complications; I10 Essential (primary) hypertension; E78.00 Pure hypercholesterolemia, unspecified; J44.9 Chronic obstructive pulmonary disease, unspecified; Z79.82 Long term (current) use of aspirin; Z79.02 Long term (current) use of antithrombotics/antiplatelets; Z79.899 Other long term (current) drug therapy; Z79.84 Long term (current) use of oral hypoglycemic drugs
CPT/HCPCS: 36415; 71045; 80048; 80076; 81001; 83690; 84484; 85025; 93005; 99284

== ENCOUNTER → 2023-04-10 16:53 | Outpatient (BNV) | payer OTHER, SELFPAY | PROVIDERS: Emergency Provider Emergency Medicine Emergency Medical Services; Visit Provider Internal Medicine | DX: I44.7 Left bundle-branch block, unspecified (principal); R94.31 Abnormal electrocardiogram [ECG] [EKG] | CPT/HCPCS: 93010 ==

== ENCOUNTER → 2023-04-13 14:13 | Outpatient (REF) | payer OTHER, SELFPAY ==
--- NOTE | 2023-04-13 14:18 | CA_ITS ---
Transthoracic Echocardiogram Patient (Last, First, Middle): Aaliyah Brennan, Kimberly Gender: Female Date of : 1945 Age: 77 Procedure Date: 04/13/2023 Procedure Type: Transthoracic Echocardiogram Location: OP Height: 152.4 cm Weight: 74.84 kg BSA: 1.72 m2 Heart Rate: 73 bpm BP: 138 / 67 mmHg Career Resource Technician: JAME Referring MD: Ian He MD Honey Blender: Ian He MD Symptoms: I44.7 - Left bundle-branch block, unspecified Study Quality: Fair but adequate Conclusions: - Normal left ventricular size, thickness, and systolic function. The visually estimated ejection fraction is between 55-60%. There is no evidence of regional wall motion abnormalities. There is paradoxical septal motion consistent with a left bundle branch block. Diastolic function is indeterminate on the basis of available data. - Normal right ventricular cavity size and systolic function. Findings Left Ventricle Normal left ventricular size, thickness, and systolic function. The visually estimated ejection fraction is between 55-60%. There is no evidence of regional wall motion abnormalities. There is paradoxical septal motion consistent with a left bundle branch block. Diastolic function is indeterminate on the basis of available data. Right Ventricle Normal right ventricular cavity size and systolic function. Atria The left atrium is normal in size. The right atrium is normal in size. Aortic Valve Normal aortic valve structure and function. There is no aortic valve stenosis. There is no aortic valve regurgitation. Mitral Valve The mitral valve appears normal. There is no mitral valve regurgitation. There is no mitral valve stenosis. Pulmonic Valve The pulmonic valve is likely normal. Tricuspid Valve Normal tricuspid valve structure and function. There is no tricuspid valve regurgitation. Tricuspid regurgitation envelope is inadequate for calculation of right ventricular systolic pressure. Normal right atrial pressure. Great Vessels There is mild dilatation of the ascending aorta measuring 3.70 cm. Venous The inferior vena cava is normal in size and collapses greater than 50% with inspiration. Pericardium/Pleural There is no evidence of pericardial effusion. Prior Study Comparison No significant change compared to prior study dated: 02/20/2022. Measurements 2D Linear Measurements LVIDd: 4.54 3.9-5.3/4.2-5.9 cm LVIDd Index: 2.64 2.4-3.2/2.2-3.1 cm/m2 LVIDs: 3.51 2.0-3.6 cm LVPWd: 0.79 0.7-1.1 cm LA Diam: 2.90 2.7-3.8/3.0-4.0 cm LAIDs Index: 1.69 1.5-2.3 cm/m2 LVOT Diam: 2.30 3.0+(-)1.3 cm 2D Systolic Function EF 4C: 53.30 >55% EF 2C: 59.60 >55% EF BiP: 56.10 >55% Mitral Valve MV Pk E: 0.58 MV PK A: 0.74 MV Decel Time: 144.00 E/A: 0.80 E'Lateral: 5.44 E'Medial: 4.46 E/E' Med: 13.10 E/E' Lat: 10.70 PHT: 42.00 MVA PHT: 5.24 Decel Randolph: 4.04 Aortic Valve AoV Pk Abel: 1.22 AoV Pk Grad: 6.00 FARTUN: 3.09 LVOT LVOT Pk Abel: 0.91 LVOT Mn Abel: 0.67 LVOT VTI: 0.18 LVOT Pk Grad: 3.00 LVOT Mn Grad: 2.00 LVOT Diam: 2.30 LVOT Area: 4.15 Diastolic Function MV Pk E: 0.58 MV Pk A: 0.74 E/A: 0.80 E'Medial: 4.46 E/E' Med: 13.10 E' Laterial: 5.44 E/E' Lat: 10.70 Right Ventricle TAPSE (mm): 17.50 TVS' Abel: 10.90 Tricuspid Valve RA Press: 3.00 Great Vessels Aorta Sinus of Valsalva: 3.30 2.0-3.5 cm Ao Asc: 3.70 2.1-3.4 cm Pulmonary Valve PV Pk Abel: 0.97 Peak PV Grad: 4.00 Updated in Other Vendor System with Status of Final Ian He MD electronically signed on 04/13/2023 7:03:37 PM with status of Final
== END ==
LOC: HO.CARD 14:13
PROVIDERS: Visit Provider Internal Medicine Cardiovascular Disease
DX: I44.7 Left bundle-branch block, unspecified (principal)
CPT/HCPCS: 93306

== ENCOUNTER → 2023-04-13 14:18 | Outpatient (BNV) | payer OTHER, SELFPAY | PROVIDERS: Visit Provider Internal Medicine Cardiovascular Disease | DX: I44.7 Left bundle-branch block, unspecified (principal) | CPT/HCPCS: 93306 ==

== ENCOUNTER 2023-05-12 08:52 | Outpatient (REF) | payer OTHER, SELFPAY ==
[2023-05-12 09:41] LABS: MANUAL DIFF FLAG NO
[2023-05-12 09:52] LABS: Basophils Percent Auto 0.4 % (0-2); Eosinophils Absolute Auto 0.1 X10*3/uL (0.0-0.4); Eosinophils Percent Auto 0.8 % (0-4); Hematocrit 44.5 % (37.0-47.0); Hemoglobin 14.4 g/dl (12.0-16.0); Imm Gran Abs Auto 0.03 X10*3/uL (0.00-0.03); Imm Gran Pct Auto 0.4 % (0.0-0.4); Lymphocytes Absolute Auto 1.6 X10*3/uL (1.2-4.9); Mean Corpuscular HGB Conc 32.4 g/dl (31.0-35.0); Mean Corpuscular Hemoglobin 29.6 pg (27.0-33.0); Mean Corpuscular Volume 91.4 fL (80.0-98.0); Mean Platelet Volume 11.4 fL (9.4-12.3); Monocytes Absolute Auto 0.4 X10*3/uL (0.1-1.2); Monocytes Percent Auto 5.1 % (2-11); Neutrophils Absolute Auto 5.3 x10*3/uL (2.0-8.3); Neutrophils Percent Auto 71.3 % (45-73); Platelet Count 206 X10*3/uL (160-400); Red Blood Count 4.87 X10*6/uL (4.20-5.50); Red Cell Distribution Width 13.6 % (11.0-16.0); White Blood Count 7.5 X10*3/uL (4.8-10.8)
[2023-05-12 10:28] LABS: Alanine Aminotransferase 16 U/L (0-31); Albumin Level 4.3 g/dL (3.5-5.0); Alkaline Phosphatase 58 U/L (39-117); Anion Gap 12 (12-20); Aspartate Amino Transferase 20 U/L (5-31); Bilirubin Total 0.6 mg/dL (0.0-1.0); Blood Urea Nitrogen 11 mg/dL (9-16); Calcium 9.9 mg/dL (8.4-10.2); Carbon Dioxide 31 mmol/L (22-29); Chloride 104 mmol/L (96-108); Estimated Glomerular Filt Rate > 60; Glucose Random 134 mg/dL (60-115); Magnesium 1.5 mg/dL (1.6-2.6); Phosphorus 2.6 mg/dL (2.7-4.5); Potassium 4.2 mmol/L (3.3-5.1); Sodium 143 mmol/L (135-145); Total Protein 7.6 g/dL (6.5-8.0)
[2023-05-12 10:32] LABS: Parathyroid Hormone Intact 43.4 pg/mL (8.7-77.1)
[2023-05-12 10:43] LABS: Vitamin D 25-OH Total 33.3 ng/mL (>30)
[2023-05-12 11:05] LABS: Total Volume 24 Hour Urine 525 mL
[2023-05-12 11:06] LABS: Creatinine, 24Hr Urine 0.3 G/Day (1.0-2.0); Creatinine, mg/dL 51.29; Creatinine, mg/dL 51.54; Phosphorus mg/dL 7.3 mg/dL; Total Volume 24 Hour Urine 525 mL
[2023-05-13 12:59] LABS: Prot Elec - Albumin 4.2 g/dL (3.8-4.8); Prot Elec - Alpha1 0.3 g/dL (0.2-0.3); Prot Elec - Alpha2 0.8 g/dL (0.5-0.9); Prot Elec - Beta 1 0.6 g/dL (0.4-0.6); Prot Elec - Beta 2 0.5 g/dL (0.2-0.5); Prot Elec - Total Protein 7.3 g/dL (6.1-8.1)
[2023-05-13 15:24] LABS: Calcium, Ionized 5.2 mg/dL (4.7-5.5)
[2023-05-13 18:49] LABS: Calcium, 24 Hr Urine 37 mg/24 h; Calcium/Creatinine Ratio 125 mg/g creat (30-275); Creatinine 24Hr Urine 0.29 g/24 h (0.50-2.15)
[2023-05-16 06:33] LABS: VITAMIN D (1,25 OH) D3 73 pg/mL; Vit D (1,25-Dihydroxy) Total 73 pg/mL (18-72); Vitamin D (1,25 OH) D2 <8 pg/mL
[2023-05-27 15:59] LABS: Parathyroid Hormone Related Pr 9 pg/mL (11-20)
== END 2023-05-12 08:53 | disposition home or self-care (01) ==
LOC: HO.LAB 08:52
PROVIDERS: PCP Family Medicine; Visit Provider Internal Medicine Endocrinology, Diabetes & Metabolism
DX: M81.8 Other osteoporosis without current pathological fracture (principal)
CPT/HCPCS: 36415; 80053; 82306; 82330; 82340; 82570; 82652; 83519; 83735; 83970; 84100; 84105; 84165; 85025; 99212

== ENCOUNTER 2023-05-12 10:26 | Outpatient (AMB) | payer OTHER, SELFPAY ==
--- NOTE | 2023-05-12 11:41 | A.OFFVIS_ITS ---
Intake Vital Signs 05/12/23 11:54 Height 5 ft 3 in Weight 162 lb BMI 28.7 Intake Visit Reasons: New Prob- Carpal tunnel syndrome Right Intake Note: Aaliyah 77 yr old female presents today a new problem visit for his right hand carpal tunnel syndrome. States her symptoms started about 6-7 yrs ago and has worsen. States she has numbness in her pinky as well. States she uses brace with no help as well as injection. EMG done with Dr. Hogan. Patient states she doesn't want surgery.States she has diabetes however she is not sure of her A1C. Allergies white fish Allergy (Intermediate, Uncoded 05/12/23 11:54) body swelling, redness HPI New Prob- Carpal tunnel syndrome Right HPI Details Aaliyah is a 77 year old right hand dominant woman who presents for a NCS review of her right hand numbness. She reports numbness in all digits of her right hand for ~6-7 years now. Symptoms intermittent, but daily, worse at night. She has numbness in all digits today in clinic. She also complains of weakness in her right hand which limits her activities. She has found no relief from bracing or injections in the past. She complains of pain and limited ROM in her right shoulder, and pain in her right elbow joint. She is a Diabetic but does not know her HgA1c. She says she has some heart issues, was in the ED for chest pain on 04/10/23, and has an appointment on 07/19/23 to speak with a statistician applied. [facility] Medical History COPD (chronic obstructive pulmonary disease) Allergic rhinitis Venous insufficiency Hx of cardiomyopathy LBBB (left bundle branch block) Urge incontinence Brain aneurysm Back pain Restrictive airway disease Bronchial asthma Hemorrhoids Arthritis Depression Hypothyroidism Migraine headache Asthma Cubital tunnel syndrome Abdominal hyperesthesia Altered bowel habits Dyspepsia Gallstone pancreatitis Calculus of gallbladder Lipoma of other skin and subcutaneous tissue Hyperlipidemia DM II (diabetes mellitus, type II), controlled Rotator cuff tear arthropathy of right shoulder Subacromial impingement Subacromial bursitis Surgical History History of cardiac catheterization Hx of colonoscopy H/O craniotomy S/P surgical manipulation of knee joint History of shoulder surgery History of total right knee replacement History of total left knee replacement Family History Son Hypertension Brother Colon cancer Social History Household Members: None Housing: Apartment Are you a primary landcare facilitator to a significant other at home: No Do you presently have visiting nurse or other home services: Yes Alcohol intake: never Patient Tobacco Use Status: Former Tobacco user Quit Date: 1999 Tobacco use type: Cigarette service: No Current occupational status: disabled Review of Systems Const All systems reviewed & are unremarkable except as noted in HPI and below Physical Exam Vital Signs: BMI result Body Mass Index 28.7 Const General: cooperative, healthy appearing and no acute distress Orientation/consciousness: patient oriented x3 HEENT Head: Yes normocephalic and Yes atraumatic Eyes EOM: EOMs intact bilaterally Resp Effort & Inspection: normal respiratory effort and able to speak in complete sentences Cardio Jugular venous distension: no JVD Skin General skin exam: turgor normal Rashes: no rashes Neuro General: patient oriented x3 Extrem Other: Evaluation of right Upper Extremity: The patient is alert, oriented, and in no acute distress Neuro: [ ] numbness to the tips of all digits today in clinic No thenar or intrinsic wasting Good APB muscle belly firing and good finger cross Vascular: Cap refill brisk ROM: She can make a fist and extend all her digits Good active flexion and extension at the elbow. No subluxation of the ulnar nerve with elbow flexion. She did have some tenderness over the ulnar nerve at the elbow, but also had tenderness about the lateral aspect of the elbow joint at the olecranon Skin: No lacerations or abrasions. General: No Ecchymosis. No Erythema or evidence of infection. Nerve Conduction Study Right side only IMPRESSION: 1. This is an abnormal NCS. No needle EMG done. 2. 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 3. There is electrodiagnostic evidence for right moderate-severe median neuropathy at the wrist, consistent with Carpal Tunnel Syndrome. 4. Cannot rule out radiculopathy completely without needle EMG. Thank you for your kind referral. Christa Villa MD, SYLVIA 12/16/22 Psych Appearance: grossly normal Affect: normal affect Attitude: cooperative Assessment & Plan Assessment & Plan (1) Carpal tunnel syndrome: Code(s): G56.00 - Carpal tunnel syndrome, unspecified upper limb (2) Cubital tunnel syndrome: Code(s): G56.20 - Lesion of ulnar nerve, unspecified upper limb (3) DM II (diabetes mellitus, type II), controlled: Code(s): E11.9 - Type 2 diabetes mellitus without complications (4) COPD (chronic obstructive pulmonary disease): Comment: Her COPD is stable and well controlled . Code(s): J44.9 - Chronic obstructive pulmonary disease, unspecified Plan Assessment & Plan: 1. Right carpal tunnel syndrome, moderate-severe With dense numbness , worse at night 2. Right cubital tunnel syndrome With dense numbness, worse at night I educated her about this condition I discussed operative and non-operative treatment options The patient would like to proceed with surgery I did explain that the surgery that we are talking about is primarily to help with numbness and avoiding developing weakness in her hand. It is not going to help with shoulder pain or likely elbow pain. The risks and benefits of operative treatment were discussed with the patient and the patient wishes to proceed with surgery. These risks include, but are n ot limited to risk of damage to blood vessels, nerves, tendons, infection, recurrence, incomplete relief of preoperative symptoms, persistent pain, possible need for further surgery and the risks associated with regional blocks and anesthesia. The plan is to take the patient to the operating room sometime in the next few weeks for the following procedures: 1. Right cubital tunnel release vs transposition, under general 2. Right carpal tunnel release, under general All of the preoperative paperwork including the consent was reviewed today. All the patient's questions were answered. The patient understands that they will be contacted by our biztalk software developer soon to schedule this procedure She denies blood thinners, asthma, kidney issues She is a Diabetic but does not know her recent HgA1c. She will need an updated HgA1c <8.1% to proceed with surgery She has COPD and will need pulmonology clearance She was in the ED on 04/10/23 for chest pain, had an abnormal EKG, and has a Cardiology appointment on 07/19/23. She will likely need cardiac clearance prior to surgery Scribed for Socorro Lindsey MD by Jas Lubanszky, medical library assistant, on 05/12/23 at 12:05 PM, EST. Coding Level of Care Code New Pt Level 4 (87947) Diagnoses Carpal tunnel syndrome G56.00 Cubital tunnel syndrome G56.20 DM II (diabetes mellitus, type II), controlled E11.9 COPD (chronic obstructive pulmonary disease) J44.9
[2023-05-12 11:54] VITALS: BMI 28.7
== END 2023-05-12 12:11 | disposition home or self-care (01) ==
PROVIDERS: PCP Family Medicine; Visit Provider Orthopaedic Surgery
DX: G56.01 Carpal tunnel syndrome, right upper limb (principal); G56.21 Lesion of ulnar nerve, right upper limb; E11.9 Type 2 diabetes mellitus without complications; J44.9 Chronic obstructive pulmonary disease, unspecified
CPT/HCPCS: 99214

== ENCOUNTER 2023-05-26 15:01 | Outpatient (REF) | payer OTHER, SELFPAY ==
--- NOTE | ~2023-05-26 | XR_ITS ---
EXAMINATION: XR CHEST CLINICAL INFORMATION: History of COPD and CAP with cough and fever. COMPARISON: Chest radiograph 04/10/2023. TECHNIQUE: 2 views of the chest were obtained. FINDINGS: Chronic interstitial thickening. [place] B-lines in the lateral left lower lung. No consolidation, pleural effusion or pneumothorax. Stable prominence of the cardiomediastinal silhouette. Mild to moderate calcifications in the aortic arch. Thoracic spondylosis. No acute osseous findings. XR/XR chest 2V IMPRESSION: 1. Findings suggesting pulmonary edema. 2. No consolidation or pleural effusion. 3. Chronic interstitial thickening.
== END 2023-05-26 15:02 | disposition home or self-care (01) ==
LOC: HO.HHCX 15:01
PROVIDERS: Visit Provider Registered Nurse
DX: R50.9 Fever, unspecified (principal); J44.9 Chronic obstructive pulmonary disease, unspecified
CPT/HCPCS: 71046

== ENCOUNTER 2023-06-25 09:43 | Outpatient (REF) | payer OTHER, SELFPAY ==
[2023-06-25 11:42] LABS: Anion Gap 13 (12-20); Blood Urea Nitrogen 21 mg/dL (9-16); Calcium 10.3 mg/dL (8.4-10.2); Carbon Dioxide 30 mmol/L (22-29); Chloride 102 mmol/L (96-108); Estimated Glomerular Filt Rate > 60; Glucose Random 96 mg/dL (60-115); Potassium 4.6 mmol/L (3.3-5.1); Sodium 140 mmol/L (135-145)
== END 2023-06-25 09:44 | disposition home or self-care (01) ==
LOC: HO.LAB 09:43
PROVIDERS: PCP Family Medicine; Visit Provider Internal Medicine Endocrinology, Diabetes & Metabolism
DX: M81.8 Other osteoporosis without current pathological fracture (principal)
CPT/HCPCS: 36415; 80048

== ENCOUNTER 2023-07-19 10:34 | Outpatient (AMB) | payer OTHER, SELFPAY ==
[2023-07-19 11:09] VITALS: BP 130/56; PULSE 86; BMI 29.1
--- NOTE | 2023-07-19 11:09 | A.OFFVIS_ITS ---
Vital Signs 07/19/23 11:09 Height 5 ft 3 in Weight 164 lb 7.437 oz BMI 29.1 BP 130/56 L Blood Pressure Location Lt brachial Position Sitting Pulse 86 Pulse Source Pulse Oximeter Intake Visit Reasons: 4mnth f/up after echo/RS [employer] Specialist Required: No Accompanied by: Self / Same As Patient Allergies white fish Allergy (Intermediate, Uncoded 05/12/23 11:54) body swelling, redness Medication List - Last Reconciled 07/19/23 by Ian He MD acetaminophen 1,000 mg PO Q8H PRN albuterol sulfate 1 amp inhalation Q4-6H PRN albuterol sulfate 90 mcg/actuation (ProAir HFA) 2 puffs inhalation Q4-6H PRN amlodipine 5 mg PO QAM aspirin 81 mg PO DAILY atorvastatin 40 mg PO BEDTIME blood sugar diagnostic ([employer] Ultra Test strips) As directed cetirizine 5 mg PO QAM fluticasone propion-salmeterol 250-50 mcg/dose 1 ea PO BID lancets ([employer] Delica Plus Lancet) As directed levothyroxine 88 mcg PO DAILY@0600 magnesium oxide 400 mg PO Q OTHER DAY metformin ER 1,000 mg PO BID@1300,1900 metoprolol tartrate 25 mg PO BID 90 days montelukast 10 mg PO BEDTIME multivitamin (Multiple Vitamins tablet) 1 tab PO DAILY pantoprazole 40 mg PO DAILY piroxicam 10 - 20 mg PO QAM repaglinide 3 mg PO TID sennosides (senna) 8.6 mg PO BID PRN HPI Comments Details: 77-year-old female was referred to us for question cardiomyopathy. There is no echocardiography a previous records available currently. She has background history of diabetes, hypertension, bronchial asthma/COPD and history of of cerebral aneurysm. She noticed sudden episode of sweating and noticed her blood pressure be elevated at 150 systolic. She had no chest discomfort shortness of breath. She said this episode improved and next blood pressure was better. She is denying any chest discomfort or significant shortness of breath otherwise. She has been following with Dr. Terrell closely and has been stable. Blood pressure in the office is good. Overall no obvious concerns or symptoms today. She was referred for echocardiography and Holter monitoring. Both were normal. She returns and is feeling good. She is complaining of varicose veins on both legs. 11/09/2022: She returns for follow-up. She is complaining of dyspnea on exertion. She has known COPD and bronchial asthma. Blood pressure is mildly elevated. She is taking amlodipine 2.5 mg once a day and metoprolol tartrate 25 mg twice a day. No chest discomfort. EKG showing left bundle-branch block. 07/19/23: She returns for follow-up. He had echocardiography performed for left bundle-branch block which showed normal biventricular function. On follow-up she is complaining of some sharp left-sided chest pains which have been off and on with activity and at rest. She also gets some shortness of breath when these symptoms happen. She has not had any chest discomfort before. Blood pressure is normal in the office but at home she has readings of 160s systolic. [facility] Medical History COPD (chronic obstructive pulmonary disease) Allergic rhinitis Venous insufficiency Hx of cardiomyopathy LBBB (left bundle branch block) Urge incontinence Brain aneurysm Back pain Restrictive airway disease Bronchial asthma Hemorrhoids Arthritis Depression Hypothyroidism Migraine headache Asthma Cubital tunnel syndrome Abdominal hyperesthesia Altered bowel habits Dyspepsia Gallstone pancreatitis Calculus of gallbladder Lipoma of other skin and subcutaneous tissue Hyperlipidemia DM II (diabetes mellitus, type II), controlled Rotator cuff tear arthropathy of right shoulder Subacromial impingement Subacromial bursitis Surgical History History of cardiac catheterization Hx of colonoscopy H/O craniotomy S/P surgical manipulation of knee joint History of shoulder surgery History of total right knee replacement History of total left knee replacement Family History Son Hypertension Brother Colon cancer Social History Household Members: None Housing: Apartment Are you a primary manager medicare marketing to a significant other at home: No Do you presently have visiting nurse or other home services: Yes Alcohol intake: never Patient Tobacco Use Status: Former Tobacco user Quit Date: 1999 Tobacco use type: Cigarette service: No Current occupational status: disabled Review of Systems Const Denies chills, Denies fatigue, Denies fever(s), Denies frequent falls, Denies weakness, Denies weight gain and Denies weight loss ENT Denies dizziness Card Denies chest pain, Denies leg edema, Denies lightheadedness, Denies palpitations, Denies dyspnea and Denies dyspnea on exertion Resp Denies cough, Denies dyspnea and Denies dyspnea on exertion GI Denies hematochezia Musc Denies abnormal gait, Denies muscle weakness, Denies numbness, Denies radiating pain into limb and Denies tingling Neuro Denies abnormal gait, Denies dizziness, Denies frequent falls, Denies numbness, Denies tingling and Denies weakness Endo Denies fatigue and Denies palpitations Physical Exam Vital Signs: Last Vital Signs Pulse 86 07/19/23 11:09 BP 130/56 L 07/19/23 11:09 BMI result Body Mass Index 29.1 GENERAL APPEARANCE: in no acute distress, pleasant. NECK: no carotid bruit, no jugular venous distention. SKIN: no suspicious lesions, warm and dry. HEART: no murmurs, regular rate and rhythm. LUNGS: clear to auscultation bilaterally. ABDOMEN: soft, nontender. EXTREMITIES: no edema. Varicose veins. PERIPHERAL PULSES: equal. NEUROLOGIC: No gross deficits, AAO X 3 Assessment & Plan Assessment & Plan (1) LBBB (left bundle branch block): Code(s): I44.7 - Left bundle-branch block, unspecified Category: Medical (2) Chest pain: Code(s): R07.9 - Chest pain, unspecified Category: Medical (3) Essential hypertension: Code(s): I10 - Essential (primary) hypertension Category: Medical Plan Pleasant 77-year-old female who is here for follow-up. She has background history of COPD/asthma and dyspnea on exertion. She has chronic left bundle- branch block. Echocardiography previously has shown normal ejection fraction and she had repeat ECHO in March 2023 showing normal biventricular function. She is complaining of chest pains which seem atypical but are new. These happen with activity and at rest. She is saying that she gets more short of breath when she gets chest discomfort. We will arrange Lexiscan for her. She will follow up with us in few months. Thank you for allowing me to participate in the care of your patient. Please feel free to contact me if you have any questions. Coding Level of Care Code Est Pt Level 4 (45804) Diagnoses LBBB (left bundle branch block) I44.7 Chest pain R07.9 Essential hypertension I10
== END 2023-07-19 11:51 | disposition home or self-care (01) ==
PROVIDERS: Visit Provider Internal Medicine Cardiovascular Disease
DX: I44.7 Left bundle-branch block, unspecified (principal); R07.9 Chest pain, unspecified; I10 Essential (primary) hypertension
CPT/HCPCS: 99214

== ENCOUNTER → 2023-07-19 10:34 | Outpatient (BNVA) | payer OTHER, SELFPAY | PROVIDERS: Visit Provider Internal Medicine Cardiovascular Disease | DX: I10 Essential (primary) hypertension (principal); I44.7 Left bundle-branch block, unspecified; R07.9 Chest pain, unspecified | CPT/HCPCS: 99212 ==

== ENCOUNTER 2023-10-29 09:34 | Outpatient (REF) | payer OTHER, SELFPAY ==
--- NOTE | ~2023-10-29 | XR_ITS ---
EXAMINATION: XR KNEE, LEFT CLINICAL INFORMATION: Pain left knee. COMPARISON: 02/15/2023. TECHNIQUE: AP standing view of bilateral knees and 2 views of the left knee. FINDINGS: Status post bilateral total knee replacements. Moderate left knee joint effusion. Irregularity of the patella with spurring. Hardware appears intact. XR/XR knee LT 3V IMPRESSION: Left knee arthroplasty with moderate joint effusion. Hardware appears intact. Electronically signed by: Delaney Donahue MD 01/25/2024 11:41 AM MINI JIMENEZ
== END 2023-10-29 09:35 | disposition home or self-care (01) ==
LOC: HO.HOSX 09:34
PROVIDERS: PCP Family Medicine; Visit Provider Orthopaedic Surgery
DX: M25.562 Pain in left knee (principal); Z96.652 Presence of left artificial knee joint; Z91.81 History of falling
CPT/HCPCS: 73562; 99212

== ENCOUNTER 2023-10-29 09:34 | Outpatient (AMB) | payer OTHER, SELFPAY ==
[2023-10-29 09:38] VITALS: BMI 29.0
--- NOTE | 2023-10-29 09:38 | MHC.OFFVIS ---
Vital Signs 10/29/23 09:38 Height 5 ft 3 in Weight 164 lb BMI 29.0 Intake Visit Reasons: OV-Left knee pain/ bruised- fell 10/11/23 Intake Note: Aaliyah is a 77 year old female who presents today for a follow up of her left knee, history of Left TKA. Patient reports that she took a fall on 10/11/23 landing on her left knee. Patient was taken to [facility]. Patient has visible bruising that has been clearing up. She reports pain covers the entire left knee, denies pain radiating anywhere else on the leg. Accompanied by: Grand Child Allergies white fish Allergy (Intermediate, Uncoded 10/29/23 09:38) body swelling, redness HPI HPI OV-Left knee pain/ bruised- fell 10/11/23: Details: Aaliyah is a 77 year old female who presents today for a follow up of her left knee, history of Left TKA. Patient reports that she took a fall on 10/11/23 landing on her left knee. Patient was taken to [facility]. Patient has visible bruising that has been clearing up. She reports pain covers the entire left knee, denies pain radiating anywhere else on the leg. [facility], [facility] Medical History COPD (chronic obstructive pulmonary disease) Allergic rhinitis Venous insufficiency Hx of cardiomyopathy LBBB (left bundle branch block) Urge incontinence Brain aneurysm Back pain Restrictive airway disease Bronchial asthma Hemorrhoids Arthritis Depression Hypothyroidism Migraine headache Asthma Cubital tunnel syndrome Abdominal hyperesthesia Altered bowel habits Dyspepsia Gallstone pancreatitis Calculus of gallbladder Lipoma of other skin and subcutaneous tissue Hyperlipidemia DM II (diabetes mellitus, type II), controlled Rotator cuff tear arthropathy of right shoulder Subacromial impingement Subacromial bursitis Surgical History History of cardiac catheterization Hx of colonoscopy H/O craniotomy S/P surgical manipulation of knee joint History of shoulder surgery History of total right knee replacement History of total left knee replacement Family History Son Hypertension Brother Colon cancer Social History Household Members: None Housing: Apartment Are you a primary healthcare prof to a significant other at home: No Do you presently have visiting nurse or other home services: Yes Alcohol intake: never Patient Tobacco Use Status: Former Tobacco user Tobacco use type: Cigarette service: No Current occupational status: disabled Physical Exam Vital Signs: BMI result Body Mass Index 29.0 Extrem Other: Ecchymosis over the anterior left lind. Tenderness to palpation over the patellar tendon. Intact extensor mechanism left knee. Results Reviewed Results Reviewed: I personally reviewed relevant radiographs. Left total knee arthroplasty in expected post operative position with no hardware complications or evidence of loosening. Assessment & Plan Assessment & Plan (1) Status post total left knee replacement using cement: Comment: in Code(s): Z96.652 - Presence of left artificial knee joint Category: Surgical Plan: Status post fall onto left knee. She is recovering and there is no evidence of acute injury to the replaced knee. She does have some bruising which is resolving. May follow up as needed. Orders: Orders XR knee LT 3V Today M25.562 - Pain in left knee Coding Level of Care Code Est Pt Level 3 (52949) Diagnoses Status post total left knee replacement using cement Z96.652
== END 2023-10-29 10:41 | disposition home or self-care (01) ==
PROVIDERS: PCP Family Medicine; Visit Provider Orthopaedic Surgery
DX: M25.562 Pain in left knee (principal); Z96.652 Presence of left artificial knee joint; W19.XXXA Unspecified fall, initial encounter
CPT/HCPCS: 99213

== ENCOUNTER 2023-11-03 10:27 | Outpatient (REF) | payer OTHER, MEDICAID, SELFPAY ==
--- NOTE | ~2023-11-03 | MM_ITS ---
EXAMINATION: MM SCREENING DIGITAL BREAST TOMOSYNTHESIS, BILATERAL CLINICAL INFORMATION: Screening. Asymptomatic. COMPARISON: Mammography: This study is compared with prior exams dating back to 2006 TECHNIQUE: Digital breast tomosynthesis is performed in both the craniocaudal and mediolateral oblique views along with computer-aided detection (CAD). Synthesized 2D images are generated from the tomosynthesis. FINDINGS: The breasts are heterogeneously dense, which may obscure small masses (ACR BI-RADS breast composition Category c). There are no significant masses, abnormal calcifications, or other abnormalities. MM/MM tomosynthesis screening BI IMPRESSION: No mammographic evidence of malignancy. ASSESSMENT: BI-RADS BI-RADS 1 - Negative RECOMMENDATION: Routine annual mammography screening. 1 year F/U This examination should not preclude the clinical evaluation of a suspicious palpable abnormality. This patient's information was entered into a reminder system with a target due date for their next mammogram. Electronically signed by: Kasandra Mcdaniel MD 12/01/2023 12:40 PM EDT
== END 2023-11-03 10:28 | disposition home or self-care (01) ==
LOC: HO.MAMMO 10:27
PROVIDERS: PCP Family Medicine; Visit Provider Family Medicine
DX: Z12.31 Encounter for screening mammogram for malignant neoplasm of breast (principal)
CPT/HCPCS: 77063; 77067

== ENCOUNTER → 2023-11-05 10:30 | Outpatient (REF) | payer OTHER, MEDICAID, SELFPAY ==
--- NOTE | ~2023-11-05 | NM_ITS ---
Myocardial perfusion study Indication: Chest pain to evaluate for myocardial ischemia Technique: The patient was brought in for a Lexiscan perfusion study on 11/05/2023. Patient performed low-level exercise and was injected 0.4 mg of Lexiscan intravenously. Within a minute of injection, 25 mCi of sestamibi was given intravenously. Images were obtained using the SPECT gamma camera interlaced with the gating device. Images were obtained in supine position. Resting perfusion study was performed on 11/09/2023. Patient was administered 25 mCi of sestamibi intravenously at rest. Images were then obtained in supine position. Images obtained with and without CT attenuation. Total DLP 136 mGy-cm. Images were processed with the software and compared side to side in short axis, horizontal long axis and vertical long axis views. Findings: The stress perfusion study showed non attenuated images show mildly reduced uptake in the basal and mid lateral wall of the LV myocardium most likely due to imaging done with arms down attenuated corrected images show mildly reduced uptake in the septum of the LV myocardium.. The gated study shows normal LV systolic function with calculated LVEF of 59%. LV cavity is normal in size. The gated study shows normal systolic wall thickening and contraction of segments. Resting study shows no change in perfusion pattern compared to stress perfusion study. Gating at rest reveals normal systolic wall motion with ejection fraction at 59%. The findings are consistent with normal myocardial perfusion. NM/NM cardiolite stress test Impression: 1. Myocardial perfusion imaging study shows normal myocardial perfusion 2. Gated LVEF is 59% 3. Transient ischemic dilatation not present EKG is nondiagnostic for ischemia
--- NOTE | 2023-11-05 10:35 | CA_ITS ---
Acquisition Time: 2023-11-05 10:38:55 Total Exercise Time: 00:02:00 Test Indications: CP Medications: SEE H Protocol: LEXISCAN Max HR: 095 BPM 66% of Pred: 142 BPM Max BP: 128/062 mmHG Max Work Load: 1.0 METS Pharmacological stress test with Lexiscan injection while sitting, without anginal symptoms, without arrhythmias, with normotensive response to injection, with nondiagnoisitic EKGs. Aminophylline 75mg IVP given to reverse Lexiscan. Nuclear images pending. Test reviewed with Dr. Mccall Referred By: Ian He Overread By: Shae Washington
== END ==
LOC: HO.CARD 10:30
PROVIDERS: PCP Family Medicine; Visit Provider Internal Medicine Cardiovascular Disease
DX: R07.9 Chest pain, unspecified (principal)
CPT/HCPCS: 78452; 93017; A9500; J0280; J2785

== ENCOUNTER → 2023-11-05 10:35 | Outpatient (BNV) | payer OTHER, MEDICAID, SELFPAY | PROVIDERS: PCP Family Medicine; Visit Provider Nurse Practitioner | DX: R07.9 Chest pain, unspecified (principal) | CPT/HCPCS: 78452; 93016; 93018 ==

== ENCOUNTER 2023-11-30 09:26 | Outpatient (AMB) | payer OTHER, MEDICAID, SELFPAY ==
[2023-11-30 10:01] VITALS: BP 130/60; PULSE 73; O2SAT 89; BMI 28.1
--- NOTE | 2023-11-30 10:01 | MHC.OFFVIS ---
Vital Signs 11/30/23 10:01 11/30/23 10:21 Height 5 ft 3 in Weight 158 lb 11.725 oz BMI 28.1 BP 130/60 Blood Pressure Location Lt brachial Position Sitting Pulse 73 Pulse Source Pulse Oximeter Pulse Oximetry (%) 89 L 95 Oxygen Delivery Method Room Air Intake Visit Reasons: copd Intake Note: pt is here for follow up and states she had a bad fall a few weeks ago, she does take a couple of good breaths before doing anything. Inclusion Specialist Required: No Allergies white fish Allergy (Intermediate, Uncoded 11/30/23 10:12) body swelling, redness Medication List - Last Reconciled 11/30/23 by Kulwant Terrell MD acetaminophen 1,000 mg PO Q8H PRN albuterol sulfate 1 amp inhalation Q4-6H PRN albuterol sulfate 90 mcg/actuation (ProAir HFA) 2 puffs inhalation Q4-6H PRN amlodipine 5 mg PO QAM aspirin 81 mg PO DAILY atorvastatin 40 mg PO BEDTIME blood sugar diagnostic (SalonBookruch Ultra Test strips) As directed cetirizine 5 mg PO QAM fluticasone propion-salmeterol 250-50 mcg/dose 1 ea PO BID lancets (Carhoots.comTouch Delica Plus Lancet) As directed levothyroxine 88 mcg PO DAILY@0600 magnesium oxide 400 mg PO Q OTHER DAY metformin ER 1,000 mg PO BID@1300,1900 metoprolol tartrate 25 mg PO BID 90 days montelukast 10 mg PO BEDTIME multivitamin (Multiple Vitamins tablet) 1 tab PO DAILY pantoprazole 40 mg PO DAILY piroxicam 10 - 20 mg PO QAM repaglinide 3 mg PO TID sennosides (senna) 8.6 mg PO BID PRN Do you need a note to return to daycare/school/sports/work: No HPI HPI copd: Details: JAYLEN is the 77 years old very pleasant female, who suffers from diabetes mellitus, osteoarthritis and significant impairment of locomotion. She gets around with the walker mostly staying in her apartment. About 2 weeks ago she got out of her apartment and slipped on some stone , fell down and sustained multiple soft tissue injuries. She was checked in [facility] Emergency room, no fractures, had contusions over the face and knees which have now almost healed. Breathing gracia she remained stable, there was no evidence of pneumonia or any fractures of the ribs. She has been somewhat more short of breath, and does heard in the front of the chest when she takes a deep breath. She checks her O2 which is staying mostly above 90% but if she does not take deep breaths sometimes the O2 sat dips below 90%, usually comes up quickly when she takes few deep breaths. She continues to use Wixela 250-50 1 inhalation b.i.d. and uses albuterol only once in a while. She has symptoms of chronic allergic rhinitis with the frequent runny nose which is controlled with the use of montelukast 10 mg daily [facility] Medical History COPD (chronic obstructive pulmonary disease) Allergic rhinitis Venous insufficiency Hx of cardiomyopathy LBBB (left bundle branch block) Urge incontinence Brain aneurysm Back pain Restrictive airway disease Bronchial asthma Hemorrhoids Arthritis Depression Hypothyroidism Migraine headache Asthma Cubital tunnel syndrome Abdominal hyperesthesia Altered bowel habits Dyspepsia Gallstone pancreatitis Calculus of gallbladder Lipoma of other skin and subcutaneous tissue Hyperlipidemia DM II (diabetes mellitus, type II), controlled Rotator cuff tear arthropathy of right shoulder Subacromial impingement Subacromial bursitis Surgical History History of cardiac catheterization Hx of colonoscopy H/O craniotomy S/P surgical manipulation of knee joint History of shoulder surgery History of total right knee replacement History of total left knee replacement Family History Son Hypertension Brother Colon cancer Social History Household Members: None Housing: Apartment Are you a primary outdoor emergency care technician to a significant other at home: No Do you presently have visiting nurse or other home services: Yes Alcohol intake: never Patient Tobacco Use Status: Former Tobacco user Tobacco use type: Cigarette service: No Current occupational status: disabled Review of Systems Const All systems reviewed & are unremarkable except as noted in HPI and below Eyes Reports no additional complaints ENT Reports nasal congestion (Mild off and on) Card Denies chest pain, Denies irregular heart rhythm and Denies leg edema Resp Reports as per HPI GI Reports heartburn (Being treated for GERD symptoms) Reports urinary incontinence (Mild, controlled with med) Musc Reports back pain Skin/Breast Reports system reviewed and no additional complaints, except as documented Neuro Reports no additional complaints Psych Reports no additional complaints Physical Exam Vital Signs: Last Vital Signs Pulse 73 11/30/23 10:01 BP 130/60 11/30/23 10:01 Pulse Ox 95 11/30/23 10:21 Oxygen Delivery Method Room Air 11/30/23 10:01 BMI result Body Mass Index 28.1 Const General: comfortable, no acute distress, alert and awake Orientation/consciousness: patient oriented x3 HEENT Head: Yes normal to inspection General nose exam: No nasal polyps present and No nasal discharge present Face and sinus: Yes sinuses nontender Mouth: oropharynx normal Throat: Yes posterior oropharynx normal Eyes General: appearance normal, both eyes and all related structures Neck Neck: Yes normal visual inspection, Yes no lymphadenopathy, Yes trachea midline and Yes no JVD Thyroid: Thyroid normal Chest Chest palpation & inspection: normal inspection of the chest, normal palpation of entire chest wall and no tenderness Resp Other: Percussion note is resonant, breath sounds are distant with prolonged expiratory phase. No wheezes rhonchi or crepitations are heard today. Cardio Palpation: normal PMI Rate: regular rate Rhythm: regular rhythm Heart sounds: no gallops and no murmurs GI Palpation (GI): Soft to palpation, nontender, No hepatosplenomegaly present and no masses Auscultation: normal bowel sounds Back/Spine/Pelvis Thoracic/Lumbar Spine: thoracic and lumbar spine normal to inspection, thoraco-lumbar ROM limited and thoraco-lumbar spasm Skin General skin exam: no rashes or lesions noted Neuro General: patient oriented x3, No gait normal (Gait is slightly impaired she uses cane when she goes outdoors) and no focal motor deficits Cranial nerves: Yes CN's II-XII intact bilaterally Extrem General: Yes normal to inspection, No no joint enlargement (Has had bilateral total knee replacements, knees stiff and slightly tender), Yes no clubbing, cyanosis or edema and Yes no calf tenderness Psych Appearance: grossly normal and well kempt Speech and movement: Normal speech and movement present Assessment & Plan Assessment & Plan (1) COPD (chronic obstructive pulmonary disease): Comment: As history of longstanding COPD , which is stable is stable and well controlled . Code(s): J44.9 - Chronic obstructive pulmonary disease, unspecified Category: Medical Plan: Continue Wixela 250-50 1 inhalation b.i.d. Use albuterol HFA 2 puffs Q 6 hours only p.r.n. She does have nebulizer at home and once in a while she uses albuterol solution in the nebulizer Q 6 hours p.r.n. Advised to do deep breathing exercises 3 times a day (2) Allergic rhinitis: Comment: Mild intermittent, stable and controlled at this time. Code(s): J30.9 - Allergic rhinitis, unspecified Category: Medical Plan: Continue montelukast 10 mg once a day Cetirizine 5 mg once a day p.r.n. Medications: Refilled fluticasone propion-salmeterol 250-50 mcg/dose 1 ea PO BID 60 ea 5RF copd Coding Level of Care Code Est Pt Level 3 (14979) Diagnoses COPD (chronic obstructive pulmonary disease) J44.9 Allergic rhinitis J30.9
[2023-11-30 10:21] VITALS: O2SAT 95
== END 2023-11-30 10:22 | disposition home or self-care (01) ==
PROVIDERS: PCP Family Medicine; Visit Provider Internal Medicine
DX: J44.9 Chronic obstructive pulmonary disease, unspecified (principal); J30.9 Allergic rhinitis, unspecified
CPT/HCPCS: 99213

== ENCOUNTER → 2023-11-30 09:26 | Outpatient (BNVA) | payer OTHER, MEDICAID, SELFPAY | PROVIDERS: PCP Family Medicine; Visit Provider Internal Medicine | DX: J44.9 Chronic obstructive pulmonary disease, unspecified (principal); J30.9 Allergic rhinitis, unspecified | CPT/HCPCS: 99212 ==

== ENCOUNTER 2024-01-26 09:30 | Outpatient (AMB) | payer OTHER, SELFPAY ==
[2024-01-26 10:27] VITALS: BP 118/60; PULSE 78; BMI 28.9
--- NOTE | 2024-01-26 10:27 | MHC.OFFVIS ---
Vital Signs 01/26/24 10:27 Height 5 ft 3 in Weight 163 lb 2.273 oz BMI 28.9 BP 118/60 Blood Pressure Location Lt brachial Position Sitting Pulse 78 Pulse Source Monitor Intake Visit Reasons: 3+ f/up s/p mibi Allergies white fish Allergy (Intermediate, Uncoded 11/30/23 10:12) body swelling, redness Medication List - Last Reconciled 01/26/24 by Ian He MD acetaminophen 1,000 mg PO Q8H PRN albuterol sulfate 1 amp inhalation Q4-6H PRN albuterol sulfate 90 mcg/actuation (ProAir HFA) 2 puffs inhalation Q4-6H PRN amlodipine 5 mg PO QAM aspirin 81 mg PO DAILY atorvastatin 40 mg PO BEDTIME blood sugar diagnostic ([employer] Ultra Test strips) As directed cetirizine 5 mg PO QAM fluticasone propion-salmeterol 250-50 mcg/dose 1 ea PO BID lancets (Keelvaruch Delica Plus Lancet) As directed levothyroxine 88 mcg PO DAILY@0600 magnesium oxide 400 mg PO Q OTHER DAY metformin ER 1,000 mg PO BID@1300,1900 metoprolol tartrate 25 mg PO BID 90 days montelukast 10 mg PO BEDTIME multivitamin (Multiple Vitamins tablet) 1 tab PO DAILY pantoprazole 40 mg PO DAILY piroxicam 10 - 20 mg PO QAM repaglinide 3 mg PO TID sennosides (senna) 8.6 mg PO BID PRN HPI Comments Details: 78-year-old female was referred to us for question cardiomyopathy. There is no echocardiography a previous records available currently. She has background history of diabetes, hypertension, bronchial asthma/COPD and history of of cerebral aneurysm. She noticed sudden episode of sweating and noticed her blood pressure be elevated at 150 systolic. She had no chest discomfort shortness of breath. She said this episode improved and next blood pressure was better. She is denying any chest discomfort or significant shortness of breath otherwise. She has been following with Dr. Terrell closely and has been stable. Blood pressure in the office is good. Overall no obvious concerns or symptoms today. She was referred for echocardiography and Holter monitoring. Both were normal. She returns and is feeling good. She is complaining of varicose veins on both legs. 11/09/2022: She returns for follow-up. She is complaining of dyspnea on exertion. She has known COPD and bronchial asthma. Blood pressure is mildly elevated. She is taking amlodipine 2.5 mg once a day and metoprolol tartrate 25 mg twice a day. No chest discomfort. EKG showing left bundle-branch block. 07/19/23: She returns for follow-up. He had echocardiography performed for left bundle-branch block which showed normal biventricular function. On follow-up she is complaining of some sharp left-sided chest pains which have been off and on with activity and at rest. She also gets some shortness of breath when these symptoms happen. She has not had any chest discomfort before. Blood pressure is normal in the office but at home she has readings of 160s systolic. 01/26/24: Here for f/u. She is frail and has been walking with walker. She is reporting surgery for aortic aneurysm. Will get records. Echo was normal. Lexiscan previously was normal. [facility] Medical History COPD (chronic obstructive pulmonary disease) Allergic rhinitis Venous insufficiency Hx of cardiomyopathy LBBB (left bundle branch block) Urge incontinence Brain aneurysm Back pain Restrictive airway disease Bronchial asthma Hemorrhoids Arthritis Depression Hypothyroidism Migraine headache Asthma Cubital tunnel syndrome Abdominal hyperesthesia Altered bowel habits Dyspepsia Gallstone pancreatitis Calculus of gallbladder Lipoma of other skin and subcutaneous tissue Hyperlipidemia DM II (diabetes mellitus, type II), controlled Rotator cuff tear arthropathy of right shoulder Subacromial impingement Subacromial bursitis Surgical History History of cardiac catheterization Hx of colonoscopy H/O craniotomy S/P surgical manipulation of knee joint History of shoulder surgery History of total right knee replacement History of total left knee replacement Family History Son Hypertension Brother Colon cancer Social History Household Members: None Housing: Apartment Are you a primary urgent care nurse practitioner to a significant other at home: No Do you presently have visiting nurse or other home services: Yes Alcohol intake: never Patient Tobacco Use Status: Former Tobacco user Tobacco use type: Cigarette service: No Current occupational status: disabled Review of Systems Const Denies weakness ENT Denies dizziness Card Denies chest pain, Denies chest pain with activity, Denies syncope, Denies rapid heart rate, Denies pedal edema, Denies edema, Denies leg edema, Denies lightheadedness, Denies palpitations, Denies dyspnea, Denies dyspnea on exertion and Denies orthopnea Resp Denies cough, Denies dyspnea and Denies dyspnea on exertion GI Denies hematochezia and Denies change in stool character Musc Denies abnormal gait, Denies muscle cramps, Denies muscle weakness, Denies numbness, Denies radiating pain into limb and Denies tingling Neuro Denies abnormal gait, Denies dizziness, Denies syncope, Denies numbness, Denies tingling and Denies weakness Endo Denies palpitations Physical Exam Vital Signs: Last Vital Signs Pulse 78 01/26/24 10:27 BP 118/60 01/26/24 10:27 BMI result Body Mass Index 28.9 GENERAL APPEARANCE: in no acute distress, pleasant. NECK: no carotid bruit, no jugular venous distention. SKIN: no suspicious lesions, warm and dry. HEART: no murmurs, regular rate and rhythm. LUNGS: clear to auscultation bilaterally. ABDOMEN: soft, nontender. EXTREMITIES: no edema. Varicose veins. PERIPHERAL PULSES: equal. NEUROLOGIC: No gross deficits, AAO X 3 Office Procedures EKG Details: Normal sinus rhythm 78 beats per minute, normal axis, left bundle-branch block, QTC 458 milliseconds. QRS duration 138 milliseconds. [id number], Complete Assessment & Plan Assessment & Plan (1) LBBB (left bundle branch block): Code(s): I44.7 - Left bundle-branch block, unspecified Category: Medical (2) Essential hypertension: Code(s): I10 - Essential (primary) hypertension Category: Medical Plan Pleasant 78-year-old female who is here for follow-up. She has background history of asthma and dyspnea on exertion. She has chronic left bundle-branch block. Echocardiography previously has shown normal ejection fraction.. She is denying any chest pain at this point. Previously complained of chest pain and had Lexiscan done which was normal. Clinically stable. Thank you for allowing me to participate in the care of your patient. Please feel free to contact me if you have any questions. Coding Level of Care Code Est Pt Level 4 (22968) Diagnoses LBBB (left bundle branch block) I44.7 Essential hypertension I10 CPT Codes EKG - CPT: 34589-[id number], Complete ([id number])
== END 2024-01-26 11:12 | disposition home or self-care (01) ==
LOC: HO.HCS 09:31
PROVIDERS: PCP Family Medicine; Visit Provider Internal Medicine Cardiovascular Disease
DX: I44.7 Left bundle-branch block, unspecified (principal); I10 Essential (primary) hypertension
CPT/HCPCS: 93010; 99214

== ENCOUNTER → 2024-01-26 09:30 | Outpatient (BNVA) | payer OTHER, SELFPAY | PROVIDERS: PCP Family Medicine; Visit Provider Internal Medicine Cardiovascular Disease | DX: I44.7 Left bundle-branch block, unspecified (principal); I10 Essential (primary) hypertension | CPT/HCPCS: 93005; 99212 ==

== ENCOUNTER 2024-06-01 09:32 | Outpatient (AMB) | payer OTHER, MEDICAID, SELFPAY ==
[2024-06-01 09:40] VITALS: BP 130/64; PULSE 86; O2SAT 95; BMI 28.9
--- NOTE | 2024-06-01 09:40 | MHC.OFFVIS ---
Vital Signs 06/01/24 09:40 Height 5 ft 3 in Weight 163 lb 2.273 oz BMI 28.9 BP 130/64 Blood Pressure Location Lt brachial Position Sitting Pulse 86 Pulse Source Pulse Oximeter Pulse Oximetry (%) 95 Oxygen Delivery Method Room Air Intake Visit Reasons: COPD Intake Note: pt is here for follow up and she does feel short of breath at times. Drawing Checker Required: No Allergies white fish Allergy (Intermediate, Uncoded 06/01/24 09:59) body swelling, redness Medication List - Last Reconciled 06/01/24 by Kulwant Tererll MD acetaminophen 1,000 mg PO Q8H PRN albuterol sulfate 1 amp inhalation Q4-6H PRN albuterol sulfate 90 mcg/actuation (ProAir HFA) 2 puffs inhalation Q4-6H PRN amlodipine 5 mg PO QAM aspirin 81 mg PO DAILY atorvastatin 40 mg PO BEDTIME blood sugar diagnostic (Aggiosuch Ultra Test strips) As directed cetirizine 5 mg PO QAM fluticasone propion-salmeterol 250-50 mcg/dose 1 ea PO BID lancets (RingTuTouch Delica Plus Lancet) As directed levothyroxine 88 mcg PO DAILY@0600 magnesium oxide 400 mg PO Q OTHER DAY metformin ER 1,000 mg PO BID@1300,1900 metoprolol tartrate 25 mg PO BID 90 days montelukast 10 mg PO BEDTIME multivitamin (Multiple Vitamins tablet) 1 tab PO DAILY pantoprazole 40 mg PO DAILY piroxicam 10 - 20 mg PO QAM repaglinide 3 mg PO TID sennosides (senna) 8.6 mg PO BID PRN Do you need a note to return to daycare/school/sports/work: No HPI HPI COPD: Details: ARGENIS IS 78 YEARS OLD VERY PLEASANT FEMALE, COMES AFTER 6 MONTHS FOR PULMONARY FOLLOW-UP. SHE HAS MULTIPLE COMPLAINTS BUT MAINLY RELATED TO HER ARTHRITIS, BACK PAIN, POOR LOCOMOTION, AND HISTORY OF FALLS. IN THE LAST 6 MONTHS SHE HAS BEEN RELATIVELY STABLE. SHE DOES HAVE MILD NASAL CONGESTION ON SOME DAYS, BUT BREATHING HAS BEEN OKAY. SHE IS USING WIXELA 250-50 B.I.D. REGULARLY, PROAIR 2 PUFFS Q 6 HOURS P.R.N.. AND ALSO ALBUTEROL SOLUTION IN THE NEBULIZER Q 6 HOURS P.R.N. AN WHEN AT HOME. SHE HAS HAD NO ACUTE RESPIRATORY ISSUES. [facility] Medical History COPD (chronic obstructive pulmonary disease) Allergic rhinitis Venous insufficiency Hx of cardiomyopathy LBBB (left bundle branch block) Urge incontinence Brain aneurysm Back pain Restrictive airway disease Bronchial asthma Hemorrhoids Arthritis Depression Hypothyroidism Migraine headache Asthma Cubital tunnel syndrome Abdominal hyperesthesia Altered bowel habits Dyspepsia Gallstone pancreatitis Calculus of gallbladder Lipoma of other skin and subcutaneous tissue Hyperlipidemia DM II (diabetes mellitus, type II), controlled Rotator cuff tear arthropathy of right shoulder Subacromial impingement Subacromial bursitis Surgical History History of cardiac catheterization Hx of colonoscopy H/O craniotomy S/P surgical manipulation of knee joint History of shoulder surgery History of total right knee replacement History of total left knee replacement Family History Son Hypertension Brother Colon cancer Social History Household Members: None Housing: Apartment Are you a primary customer care manager to a significant other at home: No Do you presently have visiting nurse or other home services: Yes Alcohol intake: never Patient Tobacco Use Status: Former Tobacco user Tobacco use type: Cigarette service: No Current occupational status: disabled Review of Systems Const All systems reviewed & are unremarkable except as noted in HPI and below Eyes Reports no additional complaints ENT Reports nasal congestion (Mild off and on) Card Denies chest pain, Denies irregular heart rhythm and Denies leg edema Resp Reports as per HPI GI Reports heartburn (Being treated for GERD symptoms) Reports urinary incontinence (Mild, controlled with med) Musc Reports back pain Skin/Breast Reports system reviewed and no additional complaints, except as documented Neuro Reports no additional complaints Psych Reports no additional complaints Physical Exam Vital Signs: Last Vital Signs Pulse 86 06/01/24 09:40 BP 130/64 06/01/24 09:40 Pulse Ox 95 06/01/24 09:40 Oxygen Delivery Method Room Air 06/01/24 09:40 BMI result Body Mass Index 28.9 Const General: comfortable, no acute distress, alert and awake Orientation/consciousness: patient oriented x3 HEENT Head: Yes normal to inspection General nose exam: No nasal polyps present and No nasal discharge present Face and sinus: Yes sinuses nontender Mouth: oropharynx normal Throat: Yes posterior oropharynx normal Eyes General: appearance normal, both eyes and all related structures Neck Neck: Yes normal visual inspection, Yes no lymphadenopathy, Yes trachea midline and Yes no JVD Thyroid: Thyroid normal Chest Chest palpation & inspection: normal inspection of the chest, normal palpation of entire chest wall and no tenderness Resp Other: Percussion note is resonant, breath sounds are distant with prolonged expiratory phase. No wheezes rhonchi or crepitations are heard today. Cardio Palpation: normal PMI Rate: regular rate Rhythm: regular rhythm Heart sounds: no gallops and no murmurs GI Palpation (GI): Soft to palpation, nontender, No hepatosplenomegaly present and no masses Auscultation: normal bowel sounds Back/Spine/Pelvis Thoracic/Lumbar Spine: thoracic and lumbar spine normal to inspection, thoraco-lumbar ROM limited and thoraco-lumbar spasm Skin General skin exam: no rashes or lesions noted Neuro General: patient oriented x3, No gait normal (Gait is slightly impaired she uses cane when she goes outdoors) and no focal motor deficits Cranial nerves: Yes CN's II-XII intact bilaterally Extrem General: Yes normal to inspection, No no joint enlargement (Has had bilateral total knee replacements, knees stiff and slightly tender), Yes no clubbing, cyanosis or edema and Yes no calf tenderness Psych Appearance: grossly normal and well kempt Speech and movement: Normal speech and movement present Assessment & Plan Assessment & Plan (1) COPD (chronic obstructive pulmonary disease): Comment: LONGSTANDING HISTORY OF COPD , which is stable and well controlled . Code(s): J44.9 - Chronic obstructive pulmonary disease, unspecified Category: Medical Plan: CONTINUE USING FLUTICASONE-SALMETEROL 250-51 INHALATION B.I.D.. ALBUTEROL HFA 2 PUFFS Q 6 HOURS P.R.N. WHEN OUTDOORS. ALBUTEROL SOLUTION IN THE NEBULIZER Q 6 HOURS P.R.N. WHEN AT HOME (2) Restrictive airway disease: Comment: As per her previous PFT. she has mild to moderate degree of restrictive pulmonary disorder, which was most likely secondary to poor efforts. Code(s): J98.4 - Other disorders of lung Category: Medical Plan: Patient has been advised to keep on doing deep breathing exercises during the daytime., (3) Allergic rhinitis: Comment: Mild intermittent, stable and controlled at this time. Code(s): J30.9 - Allergic rhinitis, unspecified Category: Medical Plan: OK to use cetirizine 5 mg in the morning Coding Level of Care Code Est Pt Level 3 (67459) Diagnoses COPD (chronic obstructive pulmonary disease) J44.9 Restrictive airway disease J98.4 Allergic rhinitis J30.9
--- OUTSIDE RECORDS SUMMARY | 2024-06-01 11:19 | XMS_ITS | Encounter Summary ---
Author Organization [email or web address] Address [address] [facility] [address] [place] [address] Care Team Providers Care Bag Hanger Name Role Phone Sarai Trejo MD Primary Care Provider [phone] Encounter Details Date Type Department Care Team ([facility] st Contact Info) Description 04/27/2023 Orders Only [facility] [address] [place], [place] [phone] Sarai Trejo MD [address] [place], [place] [phone] Social History Tobacco Use Types Packs/Day Years Used Date Smoking Tobacco: Former Cigarettes Passive Smoke Exposure: Past Smokeless Tobacco: Never PHQ-2 Answer Date Recorded Patient Health Questionnaire-2 Score 2 06/30/2022 Housing Stability Answer Date Recorded What is your housing situation today? I have [place] 01/04/[address] you li ve. Do you have problems with any of the following? None of the above 01/04/2023 Food Insecurity Answer Date Recorded Within the past 12 months, y ou worried that your food would run out before you got money to buy more: Never True 01/04/2023 Within the past 12 months,th e food you bought just didn't last and you didn't have enough money to get more: Never True Transportation Answer Date Recorded In the past 12 months, has l ack of transportation kept you from medical appts, meetings, work or from getting things needed for daily living? No 01/04/2023 Utilities Answer Date Recorded In the past 12 months, has t he electric, gas, oil or water company threatened to shut off services in your home? No 01/04/2023 Depression Answer Date Recorded Patient Health Questionnaire-2 Score 2 06/30/2022 Comments Unknown Sex and Gender Information Value Date Recorded Sex Assigned at Female 01/19/2022 10:17 AM EDT Legal Sex Female 10:17 AM EDT Gender Identity Female 01/19/2022 10:17 AM EDT Sexual Orientation Choose not to disclose 2021 10:17 AM EDT documented as of this encounter Plan of Treatment Upcoming Encounters Date Type Department Care Team (Late st Contact Info) Description 06/05/2024 10:15 AM EDT Office Visit [facility] [address] [place] [address] Sarai Trejo MD [address] [place] [id number] documented as of this encounter Goals Goal Patient Goal Type Associated Problems Recent Progress Patient-Stated? Author Blood Pressure < 140/90 Blood Pressure 129/70(2023 10:17 AM EST) No Yury Bee PharmD Hemoglobin A1c < 7 Result Component Credit(2023 12:13 PM EST) No Yury Bee PharmD documented as of this encounter Visit Diagnoses Not on filedocumented in this encounter Care Teams Bag Hanger Relationship Specialty Start Date End Date Sarai Trejo MD [address] [place] [id number] PCP - General Family Medicine 03/22/18 documented as of this encounter
--- OUTSIDE RECORDS SUMMARY | 2024-06-01 11:19 | XMS_ITS | Encounter Summary ---
Author Organization [employer] Address [address] [facility] 7t [place] [address] Care Team Providers Care Merchant Patroller Name Role Phone Sarai Trejo MD Primary Care Provider [phone] Encounter Details Date Type Department Care Team ([facility] st Contact Info) Description 04/20/2023 Orders Only [facility] [address] [place], [place] [phone] Sarai Trejo MD [address] [place], [place] [phone] Social History Tobacco Use Types Packs/Day Years [...] Description 06/05/2024 10:15 AM EDT Office Visit [facility] [address] [place] [address] Sarai Trejo MD [address] [place] [phone] documented as of this encounter Goals Goal Patient Goal Type Associated Problems Recent Progress Patient-Stated? Author Blood Pressure < 140/90 Blood Pressure 129/70(2023 10:17 AM EST) No Yury Bee PharmD Hemoglobin A1c < 7 Result Component Credit(2023 12:13 PM EST) No Yury Bee PharmD documented as of this encounter Visit Diagnoses Not on filedocumented in this encounter Care Teams Merchant Patroller Relationship Specialty Start Date End Date Sarai Trejo MD [address] [place] [phone] PCP - General Family Medicine 03/22/18 documented as of this encounter
--- OUTSIDE RECORDS SUMMARY | 2024-06-01 11:19 | XMS_ITS | Encounter Summary ---
Author Organization [employer] Address [address] [facility] 7[address] [place] [address] Care Team Providers Care Dormitory Keeper Name Role Phone Sarai Trejo MD Primary Care Provider [phone] Reason for Visit * Reason Onset Date Comments Med Refill 05/17/2023 Encounter Details Date Type Department Care Team ([facility] st Contact Info) Description 05/17/2023 Telephone [facility] [address] [place], [place] [phone] Sarai Trejo MD [address] [place], [place] [phone] Med Refill Social History Tobacco Use Types Packs/Day Years [...] t he electric, gas, oil or water [employer] threatened to shut off services in your [...] AM EDT documented as of this encounter Miscellaneous Notes * Telephone Encounter - Sona Manzo LPN - 05/17/2023 11:33 AM EST Magnesium was sent to [facility] on 04/20/23 #45 with 1 refill other meds pended to PCP. * Telephone Encounter - Shawna Walls - 05/17/2023 11:27 AM EST TC from pt requesting medication refill. Medications needing refill : magnesium oxide (Mag-Ox) 400 MG tablet Alcohol pads albuterol (2.5 MG/3ML) 0.083% nebulizer solution albuterol 108 (90 Base) MCG/ACT inhaler Acetaminophen Extra Strength 500 MG tablet To be sent to: [facility] - [place], [place] - [address] [place] [address] documented in this encounter Plan of Treatment Upcoming Encounters Date Type Department Care Team (Late st Contact Info) Description 06/05/2024 10:15 AM EDT Office Visit [facility] [address] [place] [address] Sarai Trejo MD [address] [place] [address] documented as of this encounter Goals Goal Patient Goal Type Associated Problems Recent Progress Patient-Stated? Author Blood Pressure < 140/90 Blood Pressure 129/70(2023 10:17 AM EST) Yury Walter, PharmD Hemoglobin A1c < 7 Result Component Credit(2023 12:13 PM EST) No Yury Bee, PharmD documented as of this encounter Visit Diagnoses Not on filedocumented in this encounter Care Teams Dormitory Keeper Relationship Specialty Start Date End Date Sarai Trejo MD [address] [place] [address] PCP - General Family Medicine 03/22/18 documented as of this encounter
--- OUTSIDE RECORDS SUMMARY | 2024-06-01 11:19 | XMS_ITS | Encounter Summary ---
Author Organization [employer] Address [address] [facility] [address]t [place] [address] Care Team Providers Care Branch Coordinator Name Role Phone Sarai Treoj MD Primary Care Provider [phone] Encounter Details Date Type Department Care Team (Late st Contact Info) Description 06/03/2022 Orders Only [facility] [address] [place], [place] [phone] Sona Manzo LPN Social History Tobacco Use Types Packs/Day Years Used Date Smoking Tobacco: Never Smokeless Tobacco: Never Comments Unknown Sex and Gender Information Value [...] Description 06/05/2024 10:15 AM EDT Office Visit [facility] [address] [place] [address] Sarai Trejo MD [address] [place] [address] documented as of this encounter Visit Diagnoses Not on filedocumented in this encounter Care Teams Branch Coordinator Relationship Specialty Start Date End Date Sarai Trejo MD [address] [place], [place] [phone] PCP - General Family Medicine 03/22/18 documented as of this encounter
--- OUTSIDE RECORDS SUMMARY | 2024-06-01 11:19 | XMS_ITS | Encounter Summary ---
Author Organization [employer] Address [address] [facility] 7[address] [place] [address] Care Team Providers Care Occupancy Specialist Name Role Phone Sarai Trejo MD Primary Care Provider [phone] Encounter Details Date Type Department Care Team ([facility] st Contact Info) Description 03/09/2024 Abstract [facility] [address] [place], [place] [phone] [place] Social History Tobacco Use Types Packs/Day Years Used Date Smoking Tobacco: Former Cigarettes Passive Smoke Exposure: Past Smokeless Tobacco: Never Depression Answer Date Recorded Patient Health Questionnaire-9 Score 0 08/12/2023 Patient Health Questionnaire-9 Score 0 08/12/2023 Last PHQ-9: Questionnaire Data Not on file 0 08/12/2023 Housing Stability Answer Date Recorded What is [...] Answer Date Recorded Patient Health Questionnaire-2 Score 0 08/12/2023 Comments Unknown Sex and Gender Information Value [...] Description 06/05/2024 10:15 AM EDT Office Visit [facility] [address] [place] [address] Sarai Trejo MD [address] [place] [address] documented as of this encounter Goals Goal Patient Goal Type Associated Problems Recent Progress Patient-Stated? Author Blood Pressure < 140/90 Blood Pressure 129/70(2023 10:17 AM EST) No Yury Bee PharmD Hemoglobin A1c < 7 Result Component Credit(2023 12:13 PM EST) No Yury Bee PharmD documented as of this encounter Procedures Procedure Name Priority Date/Time Associated Diagnosis Comments DIABETES EYE EXAM Routine 10/07/2023 documented in this encounter Results * Diabetes Eye Exam (10/07/2023) Eye Exam Normal Normal Historical Provider HEALTH MAINTENANCE Final Result documented in this encounter Visit Diagnoses Not on filedocumented in this encounter Additional Health Concerns Assessment Noted Time PHQ-9 Depression Total Score: 0 08/12/19 24 11:13 AM EDT documented as of this encounter Care Teams Occupancy Specialist Relationship Specialty Start Date End Date Sarai Trejo MD [address] [place] [address] PCP - General Family Medicine 03/22/18 documented as of this encounter
--- OUTSIDE RECORDS SUMMARY | 2024-06-01 11:19 | XMS_ITS | Encounter Summary ---
Author Organization [facility], Address [address] [place] [address] Phone Care Team Providers Care Library Monitor Name Role Phone Abhishek Vergara MD Primary Care Provider [phone] Encounter Details Date Type Department Care Team ([facility] st Contact Info) Description 07/14/2023 Documentation Only [facility], [address] [place] [address] James Gore, [address] [place] [address] Social History Tobacco Use Types Packs/Day Years Used Date Smoking Tobacco: Never Smokeless Tobacco: Never Alcohol Use Standard Drinks/Week Comments No 0 (1 standard drink = 0.6 oz pur e alcohol) Comments Unknown Sex and Gender Information Value Date Recorded Sex Assigned at Not on file Legal Sex Female 4:56 PM EST Gender Identity Not on file Sexual Orientation Not on file documented as of this encounter Plan of Treatment Not on file documented as of this encounter Visit Diagnoses Not on filedocumented in this encounter Care Teams Library Monitor Relationship Specialty Start Date End Date Abhishek Vergara MD [address] [place] [address] PCP - General 04/01/20 documented as of this encounter
--- OUTSIDE RECORDS SUMMARY | 2024-06-01 11:19 | XMS_ITS | Encounter Summary ---
Author Organization [employer] Address [address] [facility] [address]t [place] [address] Care Team Providers Care Metal Room Dental Technician Name Role Phone Sarai Trejo MD Primary Care Provider [phone] Reason for Visit * Reason Onset Date Comments Reschedule 07/16/2023 Encounter Details Date Type Department Care Team ([facility] st Contact Info) Description 07/16/2023 Telephone [facility] [address] [place], [place] [phone] Sarai Trejo MD [address] [place], [place] [phone] Reschedule Social History Tobacco Use Types Packs/Day Years [...] t he electric, gas, oil or water [place] threatened to shut off services in your [...] encounter Miscellaneous Notes * Telephone Encounter - Shawna Walls - 07/16/2023 10:26 AM EDT Tc from pt requesting r/s appt with PCP stated need a morning appt but not to early in the morning,insurance underwriter sales offer 2 different appts to pt on August but pt doesn't accept them. documented in this encounter Plan of Treatment Upcoming Encounters Date Type Department Care Team (Late st Contact Info) Description 06/05/2024 10:15 AM EDT Office Visit [facility] [address] [place] [address] Sarai Trejo MD [address] [place] [address] documented as of this encounter Goals Goal Patient Goal Type Associated Problems Recent Progress Patient-Stated? Author Blood Pressure < 140/90 Blood Pressure 129/70(2023 10:17 AM EST) No Yury Bee, PharmD Hemoglobin A1c < 7 Result Component Credit(2023 12:13 PM EST) No Yury Bee, PharmD documented as of this encounter Visit Diagnoses Not on filedocumented in this encounter Care Teams Metal Room Dental Technician Relationship Specialty Start Date End Date Sarai Trejo MD [address] [place] [address] PCP - General Family Medicine 03/22/18 documented as of this encounter
--- OUTSIDE RECORDS SUMMARY | 2024-06-01 11:19 | XMS_ITS | Encounter Summary ---
Author Organization [employer] Address [address] [facility] 7t [place] [address] Care Team Providers Care Cloth Feeder Name Role Phone Sarai Trejo MD Primary Care Provider [phone] Reason for Visit * Reason Onset Date Comments Lab Orders 02/24/2022 Encounter Details Date Type Department Care Team (Late st Contact Info) Description 02/24/2022 Telephone [facility] MEDICINE [address] [place], [place] [phone] Sarai Trejo MD [address] [place], [place] [phone] Lab Orders Social History Tobacco Use Types Packs/Day Years [...] encounter Miscellaneous Notes * Telephone Encounter - Rox Liriano - 03/03/2022 12:25 PM EST Called pt back regarding personal alarm her ins doesn't cover it on cell phones only land line if she wants one for her cell phone she would have to pay out of pocket. She said no thank you. * Telephone Encounter - Letha Peter RN - 03/03/2022 9:10 AM EST T/C returned to pt re below message. Informed labs not ordered by us, must have been one of her specialists. Inquired about her urinary Sx. Pt states it is resolved, no urinalysis needed. Pt inquiring about getting a Life Alert or similar emergency button product. States her children have cameras in her house to keep an eye on her but she would like to have the button for emergencies. Pt states she is unsteady on her feet and is scared if she has a fall, they wont see her in time. States she previously had it but it needed to be connected to a house phone and she couldn't afford to pay for the house phone so she cancelled. Is wondering if theres a kind that can be connected to her cell phone. Informed we would look into it. Pt verbalized understanding and denied having any further questions or concerns at this time. * Telephone Encounter - Debbie Valenzuela - 02/24/2022 10:15 AM EST Tc from pt requesting lab order to be [place] [facility] [place] . Pt informed received a call about 2 weeks ago to get labs done down stairs . Passport Support Manager was unable to find orders. documented in this encounter Plan of Treatment Upcoming Encounters Date Type Department Care Team (Late st Contact Info) Description 06/05/2024 10:15 AM EDT Office Visit [facility] MEDICINE [address] [place] [address] Sarai Trejo MD [address] [place] [address] documented as of this encounter Visit Diagnoses Not on filedocumented in this encounter Care Teams Cloth Feeder Relationship Specialty Start Date End Date Sarai Trejo MD [address] [place] [address] PCP - General Family Medicine 03/22/18 documented as of this encounter
--- OUTSIDE RECORDS SUMMARY | 2024-06-01 11:19 | XMS_ITS | Encounter Summary ---
Author Organization [facility] Address [address] [place] [address] Care Team Providers Care Cyber Incident Responder Name Role Phone John Paul Bass MD Primary Care Provider [phone] Encounter Details Date Type Department Care Team (Late st Contact Info) Description 03/03/[address] [facility] [address] [facility] [place] [address] John Paul Bass MD [address] [place] [address] [address] [facility] [id number] Chronic kidney disease, unspecified; Anemia, unspecified Social History Tobacco Use Types Packs/Day Years Used Date Smoking Tobacco: Never Assessed Comments Unknown Sex and Gender Information Value Date Recorded Sex Assigned at Not on file Legal Sex Female 4:50 AM EST Gender Identity Not on file Sexual Orientation Not on file documented as of this encounter Plan of Treatment Not on file documented as of this encounter Visit Diagnoses Diagnosis Chronic kidney disease, unspecified Anemia, unspecified documented in this encounter Care Teams Cyber Incident Responder Relationship Specialty Start Date End Date John Paul Bass MD [address] [facility] [address] [place], [phone] PCP - General Family Medicine 02/14/24 documented as of this encounter
--- OUTSIDE RECORDS SUMMARY | 2024-06-01 11:19 | XMS_ITS | Encounter Summary ---
Author Organization [facility], Address [address] [place] [address] Phone Care Team Providers Care Photoengraving Retoucher Name Role Phone Abhishek Vergara MD Primary Care Provider [phone] Encounter Details Date Type Department Care Team ([facility] st Contact Info) Description 10/06/2022 Documentation Only [facility], [address] [place] [address] James Gore, [address] [place] [address] Social History Tobacco Use Types [...] on filedocumented in this encounter Care Teams Photoengraving Retoucher Relationship Specialty Start Date End Date Abhishek Vergara MD [address] [place] [address] PCP - General 04/01/20 documented as of this encounter
--- OUTSIDE RECORDS SUMMARY | 2024-06-01 11:19 | XMS_ITS | Encounter Summary ---
Author Organization [facility], Address [address] [place] [address] Phone Care Team Providers Care Baggage Porter Name Role Phone Abhishek Vergara MD Primary Care Provider [phone] Encounter Details Date Type Department Care Team ([facility] st Contact Info) Description 07/14/2023 Documentation Only [facility], [address] [place] [address] James Gore, [address] [place] [address] Social History Tobacco Use Types [...] on filedocumented in this encounter Care Teams Baggage Porter Relationship Specialty Start Date End Date Abhishek Vergara MD [address] [place] [address] PCP - General 04/01/20 documented as of this encounter
--- OUTSIDE RECORDS SUMMARY | 2024-06-01 11:19 | XMS_ITS | Encounter Summary ---
Author Organization [employer] Address [address] [facility] 7t [place] [address] Care Team Providers Care Supervisor Fur Dressing Name Role Phone Sarai Trejo MD Primary Care Provider [phone] Reason for Visit * Reason Onset Date Comments Medication Question 05/30/2024 Encounter Details Date Type Department Care Team ([facility] st Contact Info) Description 05/30/2024 Refill [facility] MEDICINE [address] [place], [place] [phone] Sarai Trejo MD [address] [place], [place] [phone] Social History Tobacco Use Types Packs/Day Years [...] encounter Miscellaneous Notes * Telephone Encounter - Panchito Winston - 05/30/2024 2:00 PM EDT Tc from pt Stating that she received [employer] Lancets 33G misc but those don't fit her Pen so she needs new Prescription for a Smaller one. Contact pt at [phone] documented in this encounter Plan of Treatment Upcoming Encounters Date Type Department Care Team (Late st Contact Info) Description 06/05/2024 10:15 AM EDT Office Visit [facility] [address] [place] [address] Sarai Trejo MD [address] [place] [address] documented as of this encounter Goals Goal [...] documented as of this encounter Care Teams Supervisor Fur Dressing Relationship Specialty Start Date End Date Sarai Trejo MD [address] [place] [address] PCP - General Family Medicine 03/22/18 documented as of this encounter
--- OUTSIDE RECORDS SUMMARY | 2024-06-01 11:19 | XMS_ITS ---
Author Organization [facility] Address [address] [place] [address] Care Team Providers Care Freight Rate Analyst Name Role Phone Neil DOTY, Sarai Primary Care Provider Sergey Matehws Unavailable [phone] Allergies No Known Allergies REASON FOR VISIT patient presents today for abd pain /constipation Medications Medication SIG (Take, Route, Frequency, Duration) Notes Start Date End Date Status SM Anti-Diarrheal 2 MG renaldo 2 tabletas con la primera escreta blanda y renaldo 1 tableta despues de cada movimiento instestinal. no renaldo mas de 8 tabletas en 24 ho Oral for 3 Active amLODIPine Besylate 2.5 MG 1 tablet Oral ly Once a day for 30 day(s) Active Magnesium Oxide 400 MG TAKE 1 TABLET BY MOUTH TWICE DAILY Oral for 15 Active Cholestyramine Activ e Metoprolol Tartrate 25 MG 1 tablet with food Orally Twice a day for 30 day(s) Active Montelukast Sodium 10 MG 1 tablet in the evening Orally Once a day Active Aspir-81 81 MG 1 tablet Orally Once a day Active Multi Vitamin/Minerals - as directed Ora lly once a day Active Flovent HFA 220 MCG/ACT 1 puff Inhalatio n Twice a day PRN Active Atorvastatin Calcium 40 MG 1 tablet Oral ly Once a day Active metFORMIN HCl 1000 MG 1 tablet with meal s Orally Twice a day Active Lidoderm 5 % 1 patch on the right upper abdomen for the pain and then remove after 12 hours Externally Once a day for 30 days 03/25/2023 Active Levothyroxine Sodium 88 MCG 1 tablet Ora lly Once a day Active Problems Problem Type SNOMED Code ICD Code Onset Dates Problem Status W/U Status Risk Notes Problem [id number] RUQ pain (R10.11) Active confirmed Vital Signs Temperature 97.3 degrees Fahrenheit 03/25/19 24 Blood pressure systolic 00 mm Hg 03/25/19 24 Blood pressure diastolic 00 mm Hg 024 Height 60 in 03/25/2023 Weight 163 lbs 03/25/2023 BMI 31.83 kg/m2 03/25/2023 Encounters Encounter Location Date Provider Diagnosis [facility] [address] [place] [address] 03/25/2023 Sergey Hernandez RUQ pain R10.11 and Irritable bowel syndrome without diarrhea K58.9 Assessments Encounter Date Diagnosis (ICD Code) Assessment Notes Treatment Notes Treatment Clinical Notes Section Notes 03/25/2023 RUQ pain (ICD-10 - R10.11) Try Tylenol and a heating pad for the right upper abdominal pain. I will try send a prescription for a patch to put on the area to see if that helps. Overall, Aaliyah appears quite well from a clinical standpoint. We did review her negative colonoscopy in 2020 and I advised her that she would not need any further screening colonoscopies based on her age and the negative findings. In regard to the right upper quadrant pain and tenderness. I did review her recent workup in the ER and did reassure her in that regard. I advised her that I do not think this is reflective of anything such as peptic ulcer disease, neoplasm, nor choledocholithiasi s. It seems to be more of a musculoskeletal issue based on her history, or perhaps some neuropathic issue given the very superficial tenderness. Based on her recent negative workup I don't think she needs any further imaging studies nor any other endoscopic evaluation. I did recommend she try some Tylenol and a heating pad to see if that can give her some relief. I will also send over a prescription for a lidocaine patch to see if that can give her some symptomatic relief as well. I have advised her to see me on a p.r.n. basis, but told her to certainly call me should she have any further problems or questions I can be of assistance with. Aaliyah was comfortable with this plan. Thank you again for allowing me to have participated in Aaliyah's care. Please do not hesitate to contact me if I can be of any further assistance in the future. 03/25/2023 Irritable bowel syndrome without diarrhea (ICD-10 - K58.9) Overall, Aaliyah appears quite well from a clinical standpoint. We did review her negative colonoscopy in 2020 and I advised her that she would not need any further screening colonoscopies based on her age and the negative findings. In regard to the right upper quadrant pain and tenderness. I did review her recent workup in the ER and did reassure her in that regard. I advised her that I do not think this is reflective of anything such as peptic ulcer disease, neoplasm, nor choledocholithiasi s. It seems to be more of a musculoskeletal issue based on her history, or perhaps some neuropathic issue given the very superficial tenderness. Based on her recent negative workup I don't think she needs any further imaging studies nor any other endoscopic evaluation. I did recommend she try some Tylenol and a heating pad to see if that can give her some relief. I will also send over a prescription for a lidocaine patch to see if that can give her some symptomatic relief as well. I have advised her to see me on a p.r.n. basis, but told her to certainly call me should she have any further problems or questions I can be of assistance with. Aaliyah was comfortable with this plan. Thank you again for allowing me to have participated in Aaliyah's care. Please do not hesitate to contact me if I can be of any further assistance in the future. Plan Of Treatment Medication Medication Name Sig Start Date Stop Date Notes Lidoderm 5 % 1 patch on the right upper abdomen for the pain and then remove after 12 hours Externally Once a day for 30 days 03/25/2023 Treatment Notes Assessment Notes RUQ pain Try Tylenol and a he ating pad for the right upper abdominal pain. I will try send a prescription for a patch to put on the area to see if that helps. Next Appt Details Follow Up: prn, Reason: Progress Notes * AALIYAH RONDON IDOB:[birth year] (77 yo F)Acc No.[id number]:03/25/2023 Progress Notes Patient:?AALIYAH RONDON I Provider:?Sergey Hernandez MD :[id number]???Age:77 Y???Sex:Female D ate:03/25/2023 Address:[address] [place] [address] Pcp:Sarai Trejo MD Subjective: * Chief Complaints: * ???Patient presents today fo r abd pain /constipation * HPI: ???incontinence:? I saw Aaliyah in followup today in regard to her right upper quadrant pain, as well as her underlying history of irritable bowel syndrome. ?I last saw Aaliyah in April of 2020, at which time she underwent a negative colonoscopy. There was no evidence of any polyps or inflammatory bowel disease. Biopsies were negative for any underlying microscopic colitis. At that time she had been having some diarrhea but presently reports that her bowel movements have been fairly regular with about 2 or 3 soft formed stools per day. She denies any significant diarrhea nor constipation at the present time. She denies any hematochezia nor melena. ?She describes a good appetite without any significant heartburn or dysphagia. She denies any nausea, vomiting, nor early satiety. ?She has been having a long-standing history of a right upper quadrant pain that is very tender when she palpates it. She has had a cholecystectomy many years ago. She has had MRCP's in the past, with the most recent one in 2016 negative for any sign of choledocholithiasis. She denies any jaundice, fevers, nor weight loss. She denies any worsening nor improvement with eating. ?Her only activity that exacerbates it is bending over or laying on that right side. ?She was seen in the ER last month for this right upper quadrant pain. The ER exam described some tenderness to palpation in that area. The workup that day with ultrasound, CT scan, and laboratories was all nonrevealing. Specifically, LFTs and lipase were normal. The ultrasound showed a common bile duct of 1.1 cm, although the CT scan described no evidence of any biliary dilatation nor any other significant abnormalities in that regard. Again, previous MRCP's were negative in regard to choledocholithiasis. ?She has tried some Tylenol without much improvement in her right upper quadrant pain. She describes that it is currently fairly constant although again will be exacerbated by bending over or laying on that side. Of note, she does describe a lot of aches and pains throughout her body in relation to arthritis. * ROS:?General/Constitutional:?Change in appetite?denies.?Chills?denies.?Fatigue?denies.?Ophthalmologic:?Patient denies? Negative..?ENT:?Patient denies?Negative..?Respiratory:?Patient denies?No coughing/hemoptysis..?Cardiovascular:?Patient denies? No chest pain/orthopnea..?Gastrointestinal:?Comments?See HPI for details.?Genitourinary:?Patient denies? No dysuria/hematuria..?Incontinence?denies.?Musculoskeletal:?Patient complaining of?She describes a lot of aches and pains in relation to arthritisthroughout her body.?Skin:?Patient denies?No rash/pruritus..?Neurologic:?Patient denies? No headaches/seizures..?Psychiatric:?Patient denies?Negative..? * Medical History:? 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 Saunders Hemorrhoids in 2012-Dr. Decker Bladder stimulator from Dr. Perez, III * Hospitalization/Major Diagno stic Procedure:?No Hospitalization History. * Family History:?Father: dece ased.?Mother: , diagnosed with HTN (hypertension), Diabetes, Heart disease.?Siblings: , diagnosed with Colon cancer.? The patient does relate that her brother developed colon cancer in his mi-50's with associated liver metastasis. There is no other family history of GI malignancy. * Social History:?Tobacco Use:?Tobacco Use/Smoking?Are you a: former smoker , How long has it been since you last smoked?: > 10 years.?Drugs/Alcohol:?Alcohol Screen?Points: 0, Interpretation: Negative.?Miscellaneous:?Marital status: single/. Occupation: retired. ???Nonsmoker >10 yrs ago; no sig. alcohol. * Medications:?TakingmetFORMIN HCl 1000 MG Tablet 1 tablet with meals Orally Twice a dayLevothyroxine Sodium 88 MCG Tablet 1 tablet Orally Once a dayAtorvastatin Calcium 40 MG Tablet 1 tablet Orally Once a dayAspir-81 81 MG Tablet Delayed Release 1 tablet Orally Once a dayMontelukast Sodium 10 MG Tablet 1 tablet in the evening Orally Once a dayMulti Vitamin/Minerals - Tablet as directed Orally once a dayFlovent HFA 220 MCG/ACT Aerosol 1 puff Inhalation Twice a day, Notes: PRNSM Anti-Diarrheal 2 MG Tablet renaldo 2 tabletas con la primera escreta blanda y renaldo 1 tableta despues de cada movimiento instestinal. no renaldo mas de 8 tabletas en 24 ho Oral Magnesium Oxide 400 MG Tablet TAKE 1 TABLET BY MOUTH TWICE DAILY Oral amLODIPine Besylate 2.5 MG Tablet 1 tablet Orally Once a dayMetoprolol Tartrate 25 MG Tablet 1 tablet with food Orally Twice a dayCholestyramine Medication List reviewed and reconciled with the patientTaking metFORMIN HCl 1000 MG Tablet 1 tablet with meals Orally Twice a dayTaking Levothyroxine Sodium 88 MCG Tablet 1 tablet Orally Once a dayTaking Atorvastatin Calcium 40 MG Tablet 1 tablet Orally Once a dayTaking Aspir-81 81 MG Tablet Delayed Release 1 tablet Orally Once a dayTaking Montelukast Sodium 10 MG Tablet 1 tablet in the evening Orally Once a dayTaking Multi Vitamin/Minerals - Tablet as directed Orally once a dayTaking Flovent HFA 220 MCG/ACT Aerosol 1 puff Inhalation Twice a day, Notes: PRNTaking SM Anti-Diarrheal 2 MG Tablet renaldo 2 tabletas con la primera escreta blanda y renaldo 1 tableta despues de cada movimiento instestinal. no renaldo mas de 8 tabletas en 24 ho Oral Taking Magnesium Oxide 400 MG Tablet TAKE 1 TABLET BY MOUTH TWICE DAILY Oral Taking amLODIPine Besylate 2.5 MG Tablet 1 tablet Orally Once a dayTaking Metoprolol Tartrate 25 MG Tablet 1 tablet with food Orally Twice a dayTaking Cholestyramine Medication List reviewed and reconciled with the patient * Allergies:?N.K.D.A.yes[Aller gies Verified] Objective: * Vitals:?Wt: 163 lbs, Ht: 60 in, BMI:31.83 Index, BP: 00/00 mm Hg, Temp: 97.3. * Examination: ???General Examination: ?GENERAL APPEARANCE:?pleasant, well nourished, well developed, in no acute distress.?EYES:?sclera non-icteric.?ORAL CAVITY:?mucosa moist.?NECK/THYROID:?no cervical lymphadenopathy, neck supple.?SKIN:?nonjaundiced, no spider angiomata..?HEART:?S1, S2 normal.?LUNGS:?clear to auscultation bilaterally.?ABDOMEN:?Normal bowel sounds, no guarding or rigidity, no hepatosplenomegaly, no masses palpable, soft, nondistended. She does have some very superficial and what seems to be some significant tenderness along the right upper quadrant but when I am able to do a deep palpation it does not seem to worsen that..?EXTREMITIES:?no edema.?NEUROLOGIC:?alert and oriented.? Assessment: * Assessment: 1.?RUQ pain - R10.11 (Primar y)?2.?Irritable bowel syndrome without diarrhea - K58.9? Overall, Aaliyah appears quite w ell from a clinical standpoint. We did review her negative colonoscopy in 2020 and I advised her that she would not need any further screening colonoscopies based on her age and the negative findings. In regard to the right upper quadrant pain and tenderness. I did review her recent workup in the ER and did reassure her in that regard. I advised her that I do not think this is reflective of anything such as peptic ulcer disease, neoplasm, nor choledocholithiasis. It seems to be more of a musculoskeletal issue based on her history, or perhaps some neuropathic issue given the very superficial tenderness. Based on her recent negative workup I don't think she needs any further imaging studies nor any other endoscopic evaluation. I did recommend she try some Tylenol and a heating pad to see if that can give her some relief. I will also send over a prescription for a lidocaine patch to see if that can give her some symptomatic relief as well. I have advised her to see me on a p.r.n. basis, but told her to certainly call me should she have any further problems or questions I can be of assistance with. Aaliyah was comfortable with this plan. Thank you again for allowing me to have participated in Aaliyah's care. Please do not hesitate to contact me if I can be of any further assistance in the future. Plan: * Treatment: * Procedure Codes:?1036F TOBAC CO [id number] BP SCR NOT PRFRM REC REASON NOS * Preventive Medicine:? ??Counseling:?Care goal follow-up plan:?Above Normal BMI Follow-up?Giving encouragement to exercise,?BMI management provided?Yes.? ??Urinary Incontinence:?Urinary Incontinence?Assessment:?Present,?Plan of care documented:?Yes,?Type of plan of care:?Lifestyle interventions.? * Follow Up:?prn * * Sign off status: Completed true * Provider:?Sergey Hernandez MD Date:? 024 Generated for Uriel goddard/Val/Clara on:?06/01/2024 11:19 AM EDT History and Physical Notes * HPI (History of Present Illness) Category Sub-Category Detail Notes Category Not es incontinence I saw Aaliyah in followup today in regard to her right upper quadrant pain, as well as her underlying history of irritable bowel syndrome. I last saw Aaliyah in April of 2020, at which time she underwent a negative colonoscopy. There was no evidence of any polyps or inflammatory bowel disease. Biopsies were negative for any underlying microscopic colitis. At that time she had been having some diarrhea but presently reports that her bowel movements have been fairly regular with about 2 or 3 soft formed stools per day. She denies any significant diarrhea nor constipation at the present time. She denies any hematochezia nor melena. She describes a good appetite without any significant heartburn or dysphagia. She denies any nausea, vomiting, nor early satiety. She has been having a long-standing history of a right upper quadrant pain that is very tender when she palpates it. She has had a cholecystectomy many years ago. She has had MRCP's in the past, with the most recent one in 2016 negative for any sign of choledocholithiasis. She denies any jaundice, fevers, nor weight loss. She denies any worsening nor improvement with eating. Her only activity that exacerbates it is bending over or laying on that right side. She was seen in the ER last month for this right upper quadrant pain. The ER exam described some tenderness to palpation in that area. The workup that day with ultrasound, CT scan, and laboratories was all nonrevealing. Specifically, LFTs and lipase were normal. The ultrasound showed a common bile duct of 1.1 cm, although the CT scan described no evidence of any biliary dilatation nor any other significant abnormalities in that regard. Again, previous MRCP's were negative in regard to choledocholithiasis. She has tried some Tylenol without much improvement in her right upper quadrant pain. She describes that it is currently fairly constant although again will be exacerbated by bending over or laying on that side. Of note, she does describe a lot of aches and pains throughout her body in relation to arthritis. Examination Category Sub-Category Detail Notes Category Not es General Examination GENERAL APPEARANCE: pleasant , well nourished, well developed, in no acute distress EYES: sclera non-icteric NECK/THYROID: no cervical lymphade nopathy, neck supple HEART: S1, S2 normal LUNGS: clear to auscultatio n bilaterally ABDOMEN: Normal bowel sounds, no guarding or rigidity,no hepatosplenomegaly,no masses palpable,soft, nondistended. She does have some very superficial and what seems to be some significant tenderness along the right upper quadrant but when I am able to do a deep palpation it does not seem to worsen that. NEUROLOGIC: alert and oriented SKIN: nonjaundiced, no spi esvin angiomata. EXTREMITIES: no edema ORAL CAVITY: mucosa moist
--- OUTSIDE RECORDS SUMMARY | 2024-06-01 11:19 | XMS_ITS | Encounter Summary ---
Author Organization [employer] Address [address] [place] [address] Care Team Providers Care Profile Grinder Technician Name Role Phone Sarai Trejo MD Primary Care Provider [phone] Reason for Visit * Reason Onset Date Comments CHART PREP 05/30/2024 Encounter Details Date Type Department Care Team ([facility] st Contact Info) Description 05/30/2024 Telephone [facility] [address] [place], [place] [phone] Sarai Trejo MD [address] [place], [place] [phone] CHART PREP Social History Tobacco Use Types Packs/Day Years [...] encounter Miscellaneous Notes * Telephone Encounter - Kimberly Liriano [place] - 05/30/2024 10:42 AM EDT Chart Prep Labs: not done From 11/19/23 Images: not applicable Vaccines due: yes rsv,flu, covid Referrals: complete Screenings: Foot Exam Overdue care gaps: A1C, Glucose, Sbirt, SDOH, PHQ-9, Oral Health documented in this encounter Plan of Treatment Upcoming Encounters Date Type Department Care Team (Late st Contact Info) Description 06/05/2024 10:15 AM EDT Office Visit [facility] [address] [place] [address] Sarai Trejo MD [address] [place] [address] documented as of this encounter Goals Goal [...] Time PHQ-9 Depression Total Score: 0 08/12/19 11:13 AM EDT documented as of this encounter Care Teams Profile Grinder Technician Relationship Specialty Start Date End Date Sarai Trejo MD [address] [place] [address] PCP - General Family Medicine 03/22/18 documented as of this encounter
--- OUTSIDE RECORDS SUMMARY | 2024-06-01 11:19 | XMS_ITS | Encounter Summary ---
Author Organization [employer] Address [address] [place] [address] Care Team Providers Care Cop Examiner Name Role Phone Sarai Trejo MD Primary Care Provider [phone] Reason for Visit * Reason Onset Date Comments PT1 08/20/2023 Encounter Details Date Type Department Care Team ([facility] st Contact Info) Description 08/20/2023 Telephone [facility] [address] [place], [place] [phone] Sarai Trejo MD [address] [place], [place] [phone] PT1 Social History Tobacco Use Types Packs/Day Years [...] encounter Miscellaneous Notes * Telephone Encounter - Debbie Valenzuela - 08/20/2023 10:39 AM EDT Patient calling requesting PT1 Home Address verified: Y/N: Yes Provider name or facility [facility]: [facility] Facility Address: [address] [place] [address] Escort needed: Y/N: No Do you have a wheelchair: Y/N: No If yes- Manual or electric: Visits: 3-4 times a month Pt has an appt for 08/26/23 @1PM documented in this encounter Plan of Treatment Upcoming Encounters Date Type Department Care Team ([facility] st Contact Info) Description 06/05/2024 10:15 AM EDT Office Visit [facility] [address] [place] [address] Sarai Trejo MD [address] [place] [address] documented as of this encounter Goals Goal [...] documented as of this encounter Care Teams Cop Examiner Relationship Specialty Start Date End Date Sarai Trejo MD [address] [place] [id number] PCP - General Family Medicine 03/22/18 documented as of this encounter
--- OUTSIDE RECORDS SUMMARY | 2024-06-01 11:19 | XMS_ITS | Encounter Summary ---
Author Organization [facility], Address [address] [place] [address] Phone Care Team Providers Care Biodiesel Technology Manager Name Role Phone Abhishek Vergara MD Primary Care Provider [phone] Encounter Details Date Type Department Care Team ([facility] st Contact Info) Description 07/14/2023 Documentation Only [facility], [address] [place] [address] James Gore, [address] [place] [address] Social History Tobacco Use Types [...] on filedocumented in this encounter Care Teams Biodiesel Technology Manager Relationship Specialty Start Date End Date Abhishek Vergara MD [address] [place] [address] PCP - General 04/01/20 documented as of this encounter
--- OUTSIDE RECORDS SUMMARY | 2024-06-01 11:19 | XMS_ITS | Data Portability ---
Author Organization 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 Plan of Treatment Reminders Order Date Submit Date Provider Last Modified By Organization Details Last Modified Time Details Appointments None record ed. Lab None record ed. Referral None record ed. Procedures None record ed. Surgeries None record ed. Imaging None record ed. Medication Orders None record ed. Patient TargetsNo targets recorded. Patient InstructionsNo instructions recorded. Reason for Referral None Reported. Problems Name Problem SNOMED Code Status Onset Date Resolution Date Notes Provider Name and Address Organization Details Recorded Time Recurrent falls 297177864 Active 2023 Cleo De La Paz NP [address], [address], [place], [address], [facility] 14:23:46 Asthenia 82025495 Active 2023 Cleo De La Paz NP [address], [address], [place], [address], [facility] 14:23:52 Anemia 169188676 Active 2023 Cleo De La Paz NP [address], [address], [place], [address], [facility] [employer] 14:23:59 Atrial flutter 7601707 Active 2023 Cleo De La Paz NP [address], [address], [place], [address], [facility] [employer] 14:24:25 Dementia 68985629 Active 2023 Cleo De La Paz NP [address], [address], [place], [address], [email or web address] [facility] 4 14:24:42 Type 2 diabetes mellitus 36919744 Active 2023 Cleo De La Paz NP [address], [address], [place], [address], [facility] - [facility] 4 14:25:01 Depressive disorder 09920844 Active 2023 Cleo De La Paz NP [address], [address], [place], [address], [facility] - [facility] 4 14:25:09 Fracture of multiple ribs 0265228 Active 2023 Cleo De La Paz NP [address], [place], [address], [email or web address] [facility] 4 19:03:44 Peripheral vascular disease 282924301 Active 2023 Cleo De La Paz NP [address], [address], [place], [address], [email or web address] [facility] 4 19:04:26 Congestive heart failure 13639843 Active 2023 Cleo De La Paz NP [address], [address], [place], [address], [email or web address] [facility] 4 19:04:45 Hypertensive disorder 39764306 Active 2023 Cleo De La Paz NP [address], [address], [place], [address], [email or web address] [facility] 4 19:05:00 Hyperlipidemia 44296036 Active 2023 Cleo De La Paz NP [address], [address], [place], [address], [email or web address] [facility] 4 19:19:08 Seasonal allergy 917059874 Active 2023 Cleo De La Paz NP [address], [place], [address], [place] - [facility] 4 19:25:46 Urinary tract infectious disease 56598003 Active 2023 Jane Anderson MD [address], [address], [place], [address] [facility] [employer] 4 14:37:32 Problem Notes None recorded. Medical Equipment None Reported. Allergies Allergen ID Allergen Name Allergen Category Reaction Reaction Severity Criticality Documentation Date Start Date Code Code System Note Provider Name and Address Organization Details Recorded Time 28788 erythromy ashley medicatio n other Not available unabletoasse 02/09/2024 4053 RxNorm unkno wn Not Available Not Available Not Available 09806 Substance with sulfonami de structure and antibacte rial mechanism of action (substanc e) medicatio n other Not available unabletoasse 02/09/2024 82342 8003 SNOMED unkno wn Not Available Not Available Not Available 71758 lactose food,medi cation other Not available unabletoasse 02/09/2024 6211 RxNorm unkno wn Not Available Not Available Not Available 83876 shellfish derived food,medi cation other Not available unabletoasse 02/09/2024 31569 UNK seafo od Not Available Not Available Not Available Vitals Date Recorded Heart rate Respiratory rate Body temperature Oxygen saturation Oxygen saturation in Arterial blood by Pulse oximetry Systolic blood pressure Diastolic blood pressure Provider Name and Address Organization Details Last Updated DateTime 4 68 /min 17 /min 97.6 [degF] 94 % 94 % 104 mm[Hg] 78 mm[Hg] Cleo DeL a Paz NP [address], [address], [place], [address] , [employer] 4 14:22:12 Date Recorded Heart rate Respiratory rate Body temperature Oxygen saturation Oxygen saturation in Arterial blood by Pulse oximetry Systolic blood pressure Diastolic blood pressure Provider Name and Address Organization Details Last Updated DateTime 4 72 /min 16 /min 97.3 [degF] 92 % 92 % 104 mm[Hg] 74 mm[Hg] Cleo De La Paz NP [address], [address], [place], [address] , [employer] 4 09:54:01 Date Recorded Heart rate Respiratory rate Body temperature Oxygen saturation Oxygen saturation in Arterial blood by Pulse oximetry Body weight Body mass index (BMI) Body height Systolic blood pressure Diastolic blood pressure Provider Name and Address Organization Details Last Updated DateTime 4 72 /min 18 /min 98.7 [degF] 96 % 96 % 65510.0 5 g 25.2 kg/m2 149.86 cm 104 mm[Hg] 74 mm[Hg] Jane Anderson MD [address], [facility] [address], [place], [address], [employer] [facility] 4 17:40:16 Date Recorded Body height Heart rate Respiratory rate Body temperature Oxygen saturation Oxygen saturation in Arterial blood by Pulse oximetry Body mass index (BMI) Body weight Systolic blood pressure Diastolic blood pressure Provider Name and Address Organization Details Last Updated DateTime 4 149.86 cm 76 /min 16 /min 97 [degF] 97 % 97 % 24 kg/m2 58241.4 9 g 142 mm[Hg] 81 mm[Hg] Jane Anderson MD [address] [facility] [address], [place], [address], [employer] [facility] 4 20:59:29 Date Recorded Body height Body weight Body mass index (BMI) Heart rate Respiratory rate Body temperature Oxygen saturation Oxygen saturation in Arterial blood by Pulse oximetry Systolic blood pressure Diastolic blood pressure Provider Name and Address Organization Details Last Updated DateTime 4 149.86 cm 25259.0 8 g 24.2 kg/m2 76 /min 16 /min 97.7 [degF] 97 % 97 % 142 mm[Hg] 81 mm[Hg] Cleo De La Paz NP [address] [facility] [address], [place], [address], [employer] [facility] 4 09:24:10 Social History Question Answer Notes LastModified by Organizat ion Details LastModified Time Tobacco Smoking Status Never Smoker Cleo De La Paz NP [address] [facility] [address], [place], [address], [employer] 02/09/2024 18:41:14 Do You Have An Advance Directive? Yes Information not available 02/15/2024 What Is Your Level Of Alcohol Consumption? None Information not available 02/09/2024 What Is Your Code Status? DNR/DNI Information not available 02/15/2024 Where Do You Live? Apartment Information not available 02/09/2024 Legal Guardian? No Informati on not available 02/15/2024 Do You Have A Medical Power Of Drywall Hanger? Yes Invoked Information not available 02/15/2024 What Was The Date Of Your Most Recent Tobacco Screening? 02/09/2024 Information not available 02/09/2024 Do You Have An Out Of Hospital DNR? Yes Information not available 02/15/2024 What Is Your Relationship Status? Information not available 02/09/2024 Do You Use Any Illicit Or Recreational Drugs? No Information not available 02/09/2024 Has Tobacco Cessation Counseling Been Provided? No Information not available 02/09/2024 Do You Or Have You Ever Used Any Other Forms Of Tobacco Or Nicotine? No Information not available 02/09/2024 Sex: Unknown Functional Status None recorded. Mental Status None recorded. Family History Nothing Reported Notes:n/c Medical History No medical history recorded. Gynecological HistoryNo gynecological history recorded. Obstetrics History GPAL:G 0 P 0 0 0 0 Immunizations Vaccine Type Date Status Note Provider Nam e and Address Organization Details Recorded Time Respiratory syncytial virus (RSV) vaccine, unspecified 4 completed Anastacia Watson [facility] 02/09/2024 13:39:00 Tdap 4 completed Anastacia Watson [facility] 02/09/2024 13:39:14 Td(adult) unspecified formulation 2 completed Anastacia Watson [facility] 02/09/2024 13:39:28 Pneumococcal conjugate PCV20, polysaccharide [id number] conjugate, adjuvant, PF 3 completed Anastacia Watson [facility] 02/09/2024 13:39:54 influenza, unspecified formulation 2 completed Anastacia Watson [facility] 02/09/2024 13:40:07 influenza, unspecified formulation 3 completed Anastacia Watson [facility] 02/09/2024 13:40:14 SARS-COV-2 (COVID-19) vaccine, UNSPECIFIED 1 completed Anastacia [facility] 02/09/2024 13:40:26 SARS-COV-2 (COVID-19) vaccine, UNSPECIFIED 1 completed Anastacia [facility] 02/09/2024 13:40:32 SARS-COV-2 (COVID-19) vaccine, UNSPECIFIED 1 completed Anastacia [facility] 02/09/2024 13:40:40 SARS-COV-2 (COVID-19) vaccine, UNSPECIFIED 4 completed [facility] 02/09/2024 13:40:46 Past Encounters Encounter ID Performer Location Encounter Start Date Encounter Closed Date Diagnosis/Indication Diagnosis SNOMED-CT Code Diagnosis ICD10 Code Diagnosis Note [id number] Cleo De La Paz NP [address] [address] 02/09/2024 14:19:37 02/10/2024 09:14:17 Fracture of multiple ribs 2473454 S22.42XD see hpi2nd and 3rd left rib fractures eval'd by trauma and rec conservati ve therapy, IS, acapella valve, and pain management and WBAT104/10a nd start lidocaine patch % to ribs and right thighcontt yl 975 mg po tidcyclobe nzaprine 5 mg po qhs and tyl prnoxycodo ne 5 mg po q 6 hours prn painmonito r Asthenia 47420205 R53.1 PT OT eval and treat for strengthen ing, gait, balance, mobility, romsupport candace caremonito r Recurrent falls 49588119 2 R29.6 PT OT eval and treat for strengthen ing, gait, balance, mobility, romsupport candace caremonito r Urinary tr act infectious disease 82478920 N39.0 treated with abx and will continue cefpodoxim e 200 mg po bid here for 7 daysmonito r for sequlae Dementia 51458567 F01.C2 with severe dementiamo nitor for improvemen t from uti or baselineda ughter feels dementia may be baseline, although states she never refuses food or meds or states she is being held hostage today and now that daughter is here she is eating drinking and will see if she can take meds today, may be situationa l being new here, will need to monitor closelypys ch to eval and treatwill invokemoni tor Atrial flutter 8864661 I 48.92 clopidogre l 75 mg po dailymetop rolol xl 25 mg po dailyeliqu is 5 mg po bidmonitor Type 2 haven betes mellitus 58041877 E11.9 BS stable 100-200s todayinsul in decreased to lantus 15 units qhsmonitor bs with meals tid ac Depressive disorder 3548 9007 F32.A pt with hx ofsee dementia above Anemia 337176345 D64.9 vit b2 daily bidmonitor cbc weekly x3 for anemia with hx and recent fx on eliquis Congestive heart failure 21141599 I50.9 hx ofconttopr ol xl 25 mg qdentresto is on hold with cefpodoxim e(consider resuming)s pirolacton e 25 mg po qdtorsemid e 40 mg qdfu outpt cardiology 02/15/24 at 2:15 pm [facility] outpt device clinic 04/07/2024 07:40 am Peripheral vascular disease 286481415 I73.9 hx ofmonitor Fracture o f inferior pubic ramus 345514974 S32.592G pt with ? of fx of inferior left pubic ramussee hpi, felt not to be a fracture by ortho and WBATmontio rfu with Dr Wiley barrios at [facility] as needed in 1-2 weeks for ? pelvic fracture Hypertensive disorder 38 594296 I10 hx ofconttopr ol xl 25 mg qdentresto is on hold with cefpodoxim e(consider resuming)s pirolacton e 25 mg po qdtorsemid e 40 mg qdmonitor vitals, cardiac status Hyperlipidemia 79506478 E78.5 contliptor 40 mg po qdmonitor Seasonal allergy 3159226 04 J30.2 claritin 10 mg po dailymonit or [id number] Cleo De La Paz NP [address] [address] 02/10/2024 09:50:43 02/11/2024 10:17:23 Fracture of multiple ribs 2814135 S22.42XD see hpi2nd and 3rd left rib fractures eval'd by trauma and rec conservati ve therapy, IS, acapella valve, and pain management and WBAT1 nd start lidocaine patch % to ribs and right thighcontt yl 975 mg po tidcyclobe nzaprine 5 mg po qhs and tyl prnoxycodo ne 5 mg po q 6 hours prn painmonito r Fracture o f inferior pubic ramus 624786267 S32.592G pt with ? of fx of inferior left pubic ramussee hpi, felt not to be a fracture by ortho and WBATmontio rfu with Dr Wiley barrios at [facility] as needed in 1-2 weeks for ? pelvic fracture Asthenia 64325269 R53.1 PT OT eval and treat for strengthen ing, gait, balance, mobility, romsupport candace caremonito r Recurrent falls 66127436 2 R29.6 PT OT eval and treat for strengthen ing, gait, balance, mobility, romsupport candace caremonito r Urinary tr act infectious disease 67732763 N39.0 treated with abx and will continue cefpodoxim e 200 mg po bid here for 7 daysunclea r if dementia is worse with UTI and on abx?questi on if her not taking meds and delusions related to the UTI and seems to be more receptive to staff todaymonit or for sequlae Dementia 64313105 F01.C2 with severe dementiamo nitor for improvemen t from uti or baselineda ughter feels dementia may be baseline,u nclear if dementia is worse with UTI and on abx?questi on if her not taking meds and delusions related to the UTI and seems to be more receptive to staff todaypysch to eval and treatwill invokemoni tor and supportive care and reassuranc e to take meds and eat, seems showing name badge and medication s from package also helpful to her today Atrial flutter 6938391 I 48.92 clopidogre l 75 mg po dailymetop rolol xl 25 mg po dailyeliqu is 5 mg po bidmonitor Type 2 haven betes mellitus 93318636 E11.9 BS stable 100-200s todayinsul in decreased to lantus 15 units qhsmonitor bs with meals tid ac Depressive disorder 3546 9007 F32.A pt with hx ofsee dementia above Anemia 140156025 D64.9 vit b2 daily bidmonitor cbc weekly x3 for anemia with hx and recent fx on eliquis Congestive heart failure 17644716 I50.9 hx ofconttopr ol xl 25 mg qdentresto is on hold with cefpodoxim e(consider resuming)s pirolacton e 25 mg po qdtorsemid e 40 mg qdfu outpt cardiology 02/15/24 at 2:15 pm [facility] [place] [facility] outpt device clinic 04/07/2024 07:40 am Peripheral vascular disease 301516210 I73.9 hx ofmonitor Hypertensive disorder 38 807891 I10 bp stablecont toprol xl 25 mg qdentresto is on hold with cefpodoxim e(consider resuming)s pirolacton e 25 mg po qdtorsemid e 40 mg qdmonitor vitals, cardiac status Hyperlipidemia 79392721 E78.5 contliptor 40 mg po qdmonitor Seasonal allergy 3737626 04 J30.2 claritin 10 mg po dailymonit or [id number] Jane Anderson MD [address] [address] 02/11/2024 15:02:00 02/16/2024 08:32:26 Dementia 71349974 F01.C2 Mod/severe at baseline.C ommunicati ng pretty well tonight.Co ntinue supportive care, expect decline.HC P invokedMon itor mood and behaviors. Psych consult. Urinary tr act infectious disease 78850663 N30.00 Urine cx grew mixed sonia.Txed with cefpodoxim e 200 mg BID, will complete 7 day course on 02/12.Uncl ear if true UTI, but will complete tx.Monitor for sxs. Depressive disorder 1538 1997 F33.8 Tearful and worried.On no meds.Will get psych consult. Fracture o f multiple ribs 6642271 S22.42XD With continued pain.James nue lidocaine patch % to ribs and right thigh, APAP 975 mg TID, cyclobenza emma 5 mg qhs and oxycodone 5 mg q 6 hs prn.Encour age acappella, I ted, and cough and deep breaths.Mo nitor sxs. Fracture o f inferior pubic ramus 267808967 S32.592G Not thought to be fx per ortho.WBAT , pain meds as above and monitor.Ne eds PT/OT for strengthen ing, balance, gait training, safety and function.C ontinue fall precaution s.Monitor for safety. Asthenia 69710689 R53.1 As above. Recurrent falls 04168162 2 R29.6 As above. Atrial flutter 2882487 I 48.92 Rate in good control on metoprolol 25 mg qd.Continu e clopidogre l 75 mg po qd and eliquis 5 mg BIDMonitor HR and bleeding risk.F/U with cardio as planned. Type 2 haven betes mellitus 11715168 E11.9 BS in adequate control.Co ntinue lantus 15U qd and SSI.Monito r fingerstic ks TI and HgA1C q 3-6 months. Anemia 377968430 D64.89 Stable.Mon itor Congestive heart failure 40188712 I50.9 Appears euvolemic. Continue meds as above.Tram tor resp. status, fluid status, wts and labs.F/U with cardio 02/15/24 at 2:15 pm and at device clinic 04/07/2024 at 7:40 am Peripheral vascular disease 575199499 I73.89 hx ofmonitor Hypertensive disorder 38 831724 I10 BP in good control since here.James nue metoprolol 25 mg qd, spironolac tone 25 mg qd and torsemide 40 mg qdMonitor BP and labs. Hyperlipidemia 51115735 E78.49 Continue atorvastat in 40 mg qdMonitor yearly. Seasonal allergy 3524923 04 J30.2 Continue claritin 10 mg qdMonitor sxs. [id number] [facility] [address] 02/15/2024 14:21:58 03/17/2024 11:50:25 Dementia 45227781 F01.C2 Mod/severe at baseline.C ommunicati ng pretty well tonight.Co ntinue supportive care, expect decline.HC P invokedMon itor mood and behaviors. Psych consult. Urinary tr act infectious disease 98431091 N30.00 Urine cx grew mixed sonia.Txed with cefpodoxim e 200 mg BID, will complete 7 day course on 02/12.Uncl ear if true UTI, but will complete tx.Monitor for sxs. Depressive disorder 3548 9007 F33.8 Tearful and worried.On no meds.Will get psych consult. Fracture o f multiple ribs 1630328 S22.42XD With continued pain.James nue lidocaine patch % to ribs and right thigh, APAP 975 mg TID, cyclobenza emma 5 mg qhs and oxycodone 5 mg q 6 hs prn.Encour age acappella, I ted, and cough and deep breaths.Mo nitor sxs. Fracture o f inferior pubic ramus 178990848 S32.592G Not thought to be fx per ortho.WBAT , pain meds as above and monitor.Ne eds PT/OT for strengthen ing, balance, gait training, safety and function.C ontinue fall precaution s.Monitor for safety. Asthenia 05762824 R53.1 As above. Recurrent falls 56106140 2 R29.6 As above. Atrial flutter 7074013 I 48.92 Rate in good control on metoprolol 25 mg qd.Continu e clopidogre l 75 mg po qd and eliquis 5 mg BIDMonitor HR and bleeding risk.F/U with cardio as planned. Type 2 haven betes mellitus 32737751 E11.9 BS in adequate control.Co ntinue lantus 15U qd and SSI.Monito r fingerstic ks TI and HgA1C q 3-6 months. Anemia 080336973 D64.89 Stable.Mon itor Hypertensive disorder 38 507537 I10 BP in good control since here.James nue metoprolol 25 mg qd, spironolac tone 25 mg qd and torsemide 40 mg qdMonitor BP and labs. Congestive heart failure 45711237 I50.9 Appears euvolemic. Continue meds as above.Tram tor resp. status, fluid status, wts and labs.F/U with cardio 02/15/24 at 2:15 pm and at device clinic 04/07/2024 at 7:40 am Peripheral vascular disease 967464262 I73.89 hx ofmonitor Hyperlipidemia 29724871 E78.49 Continue atorvastat in 40 mg qdMonitor yearly. Seasonal allergy 9651122 04 J30.2 Continue claritin 10 mg qdMonitor sxs. [id number] Cleo De La Paz, [place] [address] [address] 02/24/2024 09:23:02 02/25/2024 11:26:37 Dementia 84453562 F01.C2 Mod/severe at baseline. seems to be trusting staff and improvingC ontinue supportive care, expect decline.HC P invokedMon itor mood and behaviors. Psych consult. Depressive disorder 3548 9007 F33.8 appears tearful at times, improving while hereOn no meds.Will get psych consult. Has not seen her yet Fracture o f multiple ribs 9366352 S22.42XD pain managed and leaving her Contin uelidocain e patch % to ribs and right thigh, APAP 975 mg TID, cyclobenza emma 5 mg qhs and oxycodone 5 mg q 6 hs prn.Encour age acappella, I ted, and cough and deep breaths.Mo nitor sxs. Fracture o f inferior pubic ramus 905351838 S32.592G Not thought to be fx per ortho.WBAT , pain meds as above and monitor.Ne eds PT/OT for strengthen ing, balance, gait training, safety and function.C ontinue fall precaution s.Monitor for safety. Asthenia 85925278 R53.1 As above. Recurrent falls 92014303 2 R29.6 As above. Atrial flutter 7343040 I 48.92 Rate in good control on metoprolol 25 mg qd.Continu eclopidogr el 75 mg po qd and eliquis 5 mg BIDMonitor HR and bleeding risk.F/U with cardio as planned. Type 2 haven betes mellitus 51904125 E11.9 BS in adequate control, 100s 200s mostlyCont inuelantus 15U qd and SSI.Monito r fingerstic ks TI and HgA1C q 3-6 months. Anemia 764247271 D64.89 Stable.Mon itor Hypertensive disorder 38 333025 I10 BP in good control since here.James nuemetopro lol 25 mg qd, spironolac tone 25 mg qd and torsemide 40 mg qdMonitor BP and labs. Congestive heart failure 65105891 I50.9 Appears euvolemic. Continue meds as above.Tram tor resp. status, fluid status, wts and labs.F/U with cardio 02/15/24 at 2:15 pm and at device clinic 04/07/2024 at 7:40 am. ? if she went to this appt-need notes Health Concerns Section Related Observation LastModified by Organization Detai ls LastModified Time None Recorded Concern Status LastModified by Organization Details LastModified Time None Recorded Advance Directives Directive Y: Payers Encounter Date Sequence Insurance Name Policy Number Policy Lind Covered Member ID Lind Member ID Guarantor Name 02/09/2024 1 [facility] DOS ON OR AFTER 2022 - MEDICARE [place]VANTAGE [place]AC[place] VANTAGE - PPO) Aaliyah Light [id number] Aaliyah Light 02/10/2024 1 [employer] - DOS ON OR AFTER 2022 - [place]IC[place]ANTAGE - PPO) Aaliyah Light [id number] Aaliyah Light 02/11/2024 1 [employer] - DOS ON OR AFTER 2022 - [place]ANTAGE - PPO) Aaliyah Light [id number] Aaliyah Light 02/15/2024 1 [employer] - DOS ON OR AFTER 2022 - [place]ANTAGE - PPO) Aaliyah Light [id number] Aaliyah Light 02/24/2024 1 [employer] - DOS ON OR AFTER 2022 - MEDIC[place]MED[place]AC[place]/AD VANTAGE - PPO) Aaliyah Light [id number] Aaliyah Light Notes Date Note Type Note Provider Name and Address Organization Details Recorded Time 4 text/html Pt is seen for an initial intake visit. PMH: Afib on eliquis, dementia, DM, falls, HTN, HLD, PVD, UTI Aaliyah was seen at [facility] for a fall and sent to here for continued care and rehab diagnosed with UTI and Fracture to left ribs. Workup included labs, UA positive for UTI and treated with abx now continues on cefpodoxime.Xray shows left hip left inferior pubic rami fracture reviewed by ortho and felt no evidence of fracture and pt is WBAT. LEft sided second and third rib fracture. Evaluated by trauma and IS, acapella valve, and pain management On exam, Aaliyah is an elderly Vietnamese speaking female lying in bed with her daughter at bedside. Aaliyah is currently eating a peanut butter and jelly sandwich and drinking water. Her daughter is getting her to take her medications as Aaliyah told her daughter this am I am being held hostage here . She seems to be improving since daughter is familiar and here helping and she is cooperative and pleasant with this [employer]. She states she hurts all over but refuses meds lately, muscle rub cream offered and she refuses as it burned her skin in the past. She is willing to trial 2 lidocaine patches today. She has scattered bruises to notable to her right thigh, right upper arm, left forearm. Left rib area without notable bruising or deformity. DE LA O: High fall riskBIMS 10/03, will invoke todayMOLST: DNR/DNI/okay to transfer to hospital, no dialysis, short term feeding tube, IVF okay. per HCP daughter Cleo De La Paz, COUNSEL[employer]AGE [employer] FAMILY [address] [facility], [address], [place], [address], [facility] 02/09/2024 19:34:16 4 text/html Pt is seen for an acute rounding visit. PMH: Afib on eliquis, dementia, DM, falls, HTN, HLD, PVD, UTI Aaliyah was seen at [facility] for a fall and sent to here for continued care and rehab diagnosed with UTI and Fracture to left ribs.-of note; Workup included labs, UA positive for UTI and treated with abx now continues on cefpodoxime.Xray shows left hip left inferior pubic rami fracture reviewed by ortho and felt no evidence of fracture and pt is WBAT. LEft sided second and third rib fracture. Evaluated by trauma and IS, acapella valve, and pain management She is seen today for refusing her pills this am and complaint of I will faster if I don't take them per nursing last night. After visiting with her this am and nurse at bedside she is open to taking all pills this am. She has ate most of her breakfast and seems to be doing a little better. On exam, She is alert and pleasant and smiles when she is reassured of her meds. This [employer] went through each medication and reviewed it with her and showed her the name and she was satisfied with that and took all meds and ate breakfast. She is agreeable to lidocaine patch placed today to left rib area. DE LA O: High fall riskBIMS 10/03, will invoke todayMOLST: DNR/DNI/okay to transfer to hospital, no dialysis, short term feeding tube, IVF okay. per HCP daughter Cleo De La Paz, [employer] FAMILY [address] [facility] [address] [facility], [address], [place], [address], [email or web address] 02/10/2024 10:02:06 4 text/html This is a woman who is here for rehab and possible LTC after an acute hospitalization for frequent falls, found to have UTI. Per d/c summary:78-year-old female with a past medical history of atrial flutter/fib, CKD stage III, depression, diabetes, dilated cardiomyopathy, failure with reduced ejection fraction, hypertension, hyperlipidemia, advanced dementia, frequent UTIs who is presenting to the hospital after fall at home. Patient was found on the floor of the bathroom by her daughter on the morning of 02/05.Because of patient's advanced dementia, difficult to obtain any reliable history from the patient. Patient does mention that she has been having frequent falls lately. She denies any significant pain or tenderness currently. Does not know whether she passed out or not. Trauma evaluation was completed in the ED with CT head, CT cervical spine, x-ray left shoulder, x-ray left hip, CT thoracic spine, CT lumbar spine. The only positive finding was left second and third rib fracture. There was mentioned that patient might have left inferior pubic rami fracture. Patient denies any pain or tenderness in that area. Trauma surgery recommended Ortho evaluation, requested Ortho to go through the scans. Ortho do not feel that she has any significant evidence of displaced fracture. Recommended weightbearing as tolerated. Blood work in the ED showed mild leukocytosis of 11.8. 3 sets of high-sensitivity troponin of 22-22-28 with nonsignificant delta. UA tested positive for pyuria, heavy bacteriuria, 3+ leukocyte esterase, nitrite was negative, 1+ hemoglobin consistent with UTI. Patient received cephalexin in the ED, changed to ceftriaxone on the morning of 02/05. U cultures, blood cultures negative till date. Patient's antibiotic changed to cefpodoxime on 02/07 which she will continue for 5 more days to complete course. Patient was cleared by trauma surgery, orthopedic surgery. Outpatient follow-up with orthopedic surgery. Plan for rehab discharge on 02/08/2024Fracture of rib of left side (S22.32XA):Fall (W19.XXXA): .Recurrent falls(R29.6):Trauma evaluation was completed, left-sided second and third rib fracture, Xray right humerus ordered by trauma on 02/06, will followX-ray left hip showed possible left inferior pubic rami fracture. Orthopedic evaluated the x-ray, scans, no evidence of fracture as per them, weightbearing as toleratedIncentive spirometry, Acapella valve, pain management with IV morphine 1 mg every 4 hours as needed for severe pain, oxycodone 5 mg every 6 hours as needed for moderate pain, Tylenol for mild painWas cleared by orthopedics for weightbearing as tolerated to left lower extremity, plan for SNF rehab placementUrinary tract infection(N39.0):UA tested positive for pyuria, 3+ leukocyte esterase, 1+ hemoglobin, nitrite was negativeAwait urine cultures, mild leukocytosis of 11.8 on presentation which is improved and leukocytosis has resolvedWas managed with IV ceftriaxone which was changed to cefpodoxime 200 mg 3 times a day which patient will continue for 7 more days to complete course.Dementia(F03.90): Delirium precaution, fall precautionsPVD (peripheral vascular disease) (I73.9):Continue Plavix, Eliquis, LipitorHeart failure with reduced ejection fractionContinue Toprol-XL, discontinued entresto, continue spironolactone, torsemide 20 mg dailyDoes not look to be in overt volume overload, BP within normal rangeHyperlipidemia(E78. 5):Continue LipitorHTN(hypertension) (I10): .Diabetes mellitus(E11.9): .Continue Lantus, lispro sliding scalePOCT AC, at bedtimeA-fib(I48.91):Tim e vzinyufxrf-Kezseg-PITfeu coagulation-on Eliquis Tonight she is in bed, awake. She tells me she's feeling ok, but is scared because she doesn't know if she's going to get better. Gets tearful at times.I see her with a botswanan speaking staff member, but she answers in british often, and sometimes answers my questions before he translates them. Her PMH includes HTN, Afib on Eliquis, dementia, AODM, HLD, PVD, UTIs and frequent falls. Jane Anderson MD [address] [place] [address], [facility], [place], [address], [employer] 02/15/2024 14:55:48 4 text/html I am seeing this 78 yo woman today for an acute visit to f/u rib pain and progress in rehab .She denies pain, but often gets tearful. When I ask her what kind of place this is, she tells me it's a place people come to .I see her with a botswanan speaking staff member, but she answers in british often, and sometimes answers my questions before he translates them. Her PMH includes HTN, Afib on Eliquis, dementia, AODM, HLD, PVD, UTIs and frequent falls. Jane Anderson MD [address] [place] [address], [address], [place], [address], [employer] 03/16/2024 16:10:08 4 text/html Pt is seen for an acute rounding visit. Her PMH includes HTN, Afib on Eliquis, dementia, AODM, HLD, PVD, UTIs and frequent falls.I Aaliyah is a 78 yo woman who was seen at [facility] for a fall and sent to here for continued care and rehab diagnosed with UTI and Fracture to left ribs. Aaliyah is seen today in the activity room after lunch. She is smiling and happy her hair was washed and styled. She honestly seems like a different lady from a few weeks ago. She states she is okay and trusting staff to take her meds and meals. She reports the therapy team is wonderful and very nice. She reports her pain is controlled and leaving her A care plan meeting was had on 02/22: Aaliyah is currently incontinent of bowel/bladder, min assist with transfers and ambulating up to 150 feet with RW. She has had no recent falls. She is on a Heart Healthy diet, regular texture with thin liquids. She receives a supplement 1x daily and prefers chocolate. Her current weight is 120 lbs. Aaliyah has an order for barrier cream to her jesus prominences, a lidocaine patch to her back/left thigh for pain and Oxycodone for sever pain.Aaliyah's mood and/or behaviors have been stable, She is on no psych medications and has had no [address] involvement. Ordered of note; [facility] Workup included labs, UA positive for UTI and treated with abx now continues on cefpodoxime.Xray shows left hip left inferior pubic rami fracture reviewed by ortho and felt no evidence of fracture and pt is WBAT. LEft sided second and third rib fracture. Evaluated by trauma and IS, acapella valve, and pain management DE LA O: High fall riskBIMS 10/03, will invoke todayMOLST: DNR/DNI/okay to transfer to hospital, no dialysis, short term feeding tube, IVF okay. per HCP daughter Cleo De La Paz, [employer] FAMILY [address] [facility], [address], [place], [address], [facility] [place] 02/24/2024 20:17:01 OBGyn Episode No OBEpisode recorded.
--- OUTSIDE RECORDS SUMMARY | 2024-06-01 11:19 | XMS_ITS | Encounter Summary ---
Author Organization [employer] Address [address] [facility] 7t [place] [address] Care Team Providers Care Helmet Coverer Name Role Phone Sarai Trejo MD Primary Care Provider [phone] Encounter Details Date Type Department Care Team ([facility] st Contact Info) Description 01/11/2024 Orders Only [facility] MEDICINE [address] [place], [place] [phone] Sarai Trejo MD [address] [place], [place] [phone] Social History Tobacco Use Types Packs/Day Years [...] Description 06/05/2024 10:15 AM EDT Office Visit [facility] [address] [place] [address] [phone] Sarai Trejo MD [address] [place] [address] documented as of this encounter Goals Goal [...] documented as of this encounter Care Teams Helmet Coverer Relationship Specialty Start Date End Date Sarai Trejo MD [address] [place] [address] PCP - General Family Medicine 03/22/18 documented as of this encounter
--- OUTSIDE RECORDS SUMMARY | 2024-06-01 11:19 | XMS_ITS | Encounter Summary ---
Author Organization [employer] [facility] Address [address] [facility] 7t [place] [address] Care Team Providers Care Spinning Doffer Name Role Phone Sarai Trejo MD Primary Care Provider [phone] Encounter Details Date Type Department Care Team (Late st Contact Info) Description 07/03/2022 Orders Only [facility] MEDICINE [address] [place], [place] [phone] Sarai Trejo MD [address] [place], [place] [phone] Social History Tobacco Use Types Packs/Day Years Used Date Smoking Tobacco: Never Smokeless Tobacco: Never PHQ-2 Answer Date Recorded Patient Health Questionnaire-2 Score 2 06/30/2022 Depression Answer Date Recorded Patient Health Questionnaire-2 Score 2 06/30/2022 Comments Unknown Sex and Gender Information Value Date Recorded Sex Assigned at Female 01/19/2022 10:17 AM EDT Legal Sex Female 10:17 AM EDT Gender Identity Female 01/19/2022 10:17 AM EDT Sexual Orientation Choose not to disclose 2021 10:17 AM EDT COVID-19 Exposure Response Date Recorded In the last 10 days, have yo u been in contact with someone who was confirmed or suspected to have Coronavirus/COVID-19? No / Unsure 06/30/2022 11:08 AM EDT documented as of this encounter Plan of Treatment Upcoming Encounters Date Type Department Care Team (Late st Contact Info) Description 06/05/2024 10:15 AM EDT Office Visit [facility] MEDICINE [address] [place], [place] [phone] Sarai Trejo MD [address] [place] [address] documented as of this encounter Visit Diagnoses Not on filedocumented in this encounter Care Teams Spinning Doffer Relationship Specialty Start Date End Date Sarai Trejo MD [address] [place] [address] PCP - General Family Medicine 03/22/18 documented as of this encounter
--- OUTSIDE RECORDS SUMMARY | 2024-06-01 11:19 | XMS_ITS | Encounter Summary ---
Author Organization [employer] Address [address] [facility] 7t [place] [address] Care Team Providers Care Tennis Centre Manager Name Role Phone Sarai Trejo MD Primary Care Provider [phone] Reason for Visit * Reason Onset Date Comments uber transportation needed 02/21/2024 Encounter Details Date Type Department Care Team ([facility] st Contact Info) Description 02/21/2024 Telephone [facility] MED[facility]INE [address] [place], [place] [phone] Sarai Trejo MD [address] [place], [place] [phone] uber transportation needed Social History Tobacco Use Types Packs/Day Years [...] encounter Miscellaneous Notes * Telephone Encounter - Savana Pate RN - 02/24/2024 9:58 AM EST Telephone call to pt to advise Uber is not available for scheduled follow up appts with PCP. Pt verbalized understanding, then stated that her sugars have been around 208 regularly for the last monthand she is concerned. Denied excessive thirst, urination, nausea, vomiting, abdominal pain. Advisedher that PCP would review BS log and A1C at appt on 03/14 however pt concerned about sugars not being addressed before then. Advised her message can be sent to PCP and walk in clinic is available if any symptoms of hyperglycemia develop. Pt verbalized understanding. * Telephone Encounter - John Paul Mahmood - 02/21/2024 11:42 AM EST TC from pt needs uber transportation for 03/14 11:15am visit with Dr Trejo documented in this encounter Plan of Treatment Upcoming Encounters Date Type Department Care Team (Late st Contact Info) Description 06/05/2024 10:15 AM EDT Office Visit [facility] MED[facility] [address] [place] [address] Sarai Trejo MD [address] [place] [address] documented as of this encounter Goals Goal [...] documented as of this encounter Care Teams Tennis Centre Manager Relationship Specialty Start Date End Date Sarai Trejo MD [address] [place] [address] PCP - General Family Medicine 03/22/18 documented as of this encounter
--- OUTSIDE RECORDS SUMMARY | 2024-06-01 11:19 | XMS_ITS | Encounter Summary ---
Author Organization [employer] Address [address] [facility] 7t [place] [address] Care Team Providers Care Obgyn Hospitalist Physician Name Role Phone Sarai Trejo MD Primary Care Provider [phone] Reason for Visit * Reason Onset Date Comments Medication 04/16/2023 Encounter Details Date Type Department Care Team ([facility] st Contact Info) Description 04/16/2023 Telephone [facility] MEDICINE [address] [place] [address] Sarai Trejo MD [address] [place], [place] [phone] Medication Social History Tobacco Use Types Packs/Day Years [...] encounter Miscellaneous Notes * Telephone Encounter - Tim Light - 04/16/2023 10:36 AM EST Tc from pt requesting medication Senna. Pt stated medication was prescribed to her at the ER 02/26/23 and has spoken about this medication with pcp last visit 04/13/23. Any questions you can contact pt at [phone]. documented in this encounter Plan of Treatment Upcoming Encounters Date Type Department Care Team (Late st Contact Info) Description 06/05/2024 10:15 AM EDT Office Visit [facility] [address] [place] [phone] Sarai Trejo MD [address] [place] [address] documented as of this encounter Goals Goal Patient Goal Type Associated Problems Recent Progress Patient-Stated? Author Blood Pressure < 140/90 Blood Pressure 129/70(2023 10:17 AM EST) No Yury Bee, PharmD Hemoglobin A1c < 7 Result Component Credit(2023 12:13 PM EST) No Yury Bee, PharmD documented as of this encounter Visit Diagnoses Not on filedocumented in this encounter Care Teams Obgyn Hospitalist Physician Relationship Specialty Start Date End Date Sarai Trejo MD [address] [place] [address] PCP - General Family Medicine 03/22/18 documented as of this encounter
--- OUTSIDE RECORDS SUMMARY | 2024-06-01 11:19 | XMS_ITS | Encounter Summary ---
Author Organization [facility], Address [address] [place] [address] Phone Care Team Providers Care Polish Maker Name Role Phone Abhishek Vergara MD Primary Care Provider [phone] Encounter Details Date Type Department Care Team ([facility] st Contact Info) Description 09/09/2023 Documentation Only [facility], [address] [place] [address] James Gore, [address] [place] [address] Social History Tobacco Use Types [...] on filedocumented in this encounter Care Teams Polish Maker Relationship Specialty Start Date End Date Abhishek Vergara MD [address] [place] [address] PCP - General 04/01/20 documented as of this encounter
--- OUTSIDE RECORDS SUMMARY | 2024-06-01 11:19 | XMS_ITS | Clinical Summary ---
Author Organization [address] Address [address] [place] [address] Phone Care Team Providers Care Scientific Programmer Name Role Phone John Paul Bass MD Primary Care Provider [phone] Encounters Date Type Department Care Team Description 03/11/2024 Lab Requisition [facility] Lab [address] [place] [phone] John Paul Bass MD Chronic kidney disease, unspecified; Anemia, unspecified 03/03/2024 Lab Requisition [facility] Lab [address] [place] [phone] John Paul Bass MD Chronic kidney disease, unspecified; Anemia, unspecified from Last 3 Months Social History Tobacco Use Types Packs/Day Years Used Date Smoking Tobacco: Never Assessed Comments Unknown Sex and Gender Information Value Date Recorded Sex Assigned at Not on file Legal Sex Female 4:50 AM EST Gender Identity Not on file Sexual Orientation Not on file Plan of Treatment Health Maintenance Due Date Last Done Comments Diabetes: Annual Foot Exam 12/18/1955 Diabetes: Annual Retina Eye Exam 12[birth year]18/1955 Zoster Vaccines (2 of 3) 04/21/2011 02/24/2011 RSV Immunization Patients 60+ Years Old (1 - 1-dose 75+ series) 12/19/2019 COVID-19 Vaccine ( season) 2023 01/07/2021, 05/17/2020, 04/26/2020 Influenza Vaccine (#1) 2023 , 12/30/2021, 01/07/2021, Additional history exists Cholesterol Screening (Lipid Panel) 02/14/2024 Depression Screening 02/14/2024 Diabetes: Annual Urine Albumin-Creatinine Ratio (uACR) 02/14/2024 Falls Risk Assessment 02/14/2024 Hepatitis C Screening 02/14/2024 Osteoporosis Screening (Bone Density Screening) 02/14/2024 Social Influencers of Health Screening 02/14/2024 Diabetes: Blood Sugar Control Test (HGBA1C) 08/13/2024 02/14/2024, 03/27/2019 Diabetes: Annual GFR (Glomerular Filtration Rate) 02/27/2025 02/28/2024, 02/21/2024, 02/14/2024 Hypertension/CHF/CAD Annual BMP Blood Test 02/27/2025 02/28/2024, 02/21/2024, 02/14/2024 DTaP,Tdap,and Td Vaccines (4 - Td or Tdap) 11/14/2033 11/15/2023, 06/03/2018, 01/05/2012 Pneumococcal Vaccine: 50+ Years Completed 03/09/2023, 04/30/2017, 03/12/2015, Additional history exists HIB Vaccines Aged Out No longer eligi ble based on patient's age to complete this topic HPV Vaccines Aged Out No longer eligi ble based on patient's age to complete this topic Hepatitis A Vaccines Aged Out No long er eligible based on patient's age to complete this topic Hepatitis B Vaccines Aged Out No long er eligible based on patient's age to complete this topic IPV Vaccines Aged Out No longer eligi ble based on patient's age to complete this topic MMR Vaccines Aged Out No longer eligi ble based on patient's age to complete this topic Meningococcal ACWY Vaccine Aged Out N o longer eligible based on patient's age to complete this topic Meningococcal B Vacine Aged Out No lo nger eligible based on patient's age to complete this topic RSV Immunization Patients Under 20 months Aged Out No longer eligible based on patient's age to complete this topic Varicella Vaccines Aged Out No longer eligible based on patient's age to complete this topic Procedures Procedure Name Priority Date/Time Associated Diagnosis Comments BASIC METABOLIC PANEL Routine 02/28/2024 5:23 AM EST Chronic kidney disease, unspecified Anemia, unspecified HEMOGLOBIN A1C Routine 02/14/2024 6:29 AM EST Type 2 diabetes mellitus without complications (CMS/HCC) from Last 3 Months or Most Recently Relevant to Health Maintenance Results * (ABNORMAL) Basic metabolic panel (02/28/2024 5:23 AM EST) Sodium 139 133 - 145 mmol/L LAB CHEMISTRY METHOD 02/28/2024 10:07 AM [facility] Potassium 4.5 3.5 - 5.5 mmol/L LAB CHEMISTRY METHOD 02/28/2024 10:07 AM [facility] Chloride 102 96 - 110 mmol/L LAB CHEMISTRY METHOD 02/28/2024 10:07 AM [facility] CO2 31 21 - 32 mmol/L LAB CHEMISTRY METHOD 02/28/2024 10:07 AM [facility] Anion Gap 6 3 - 11 LAB CHEMISTRY METHOD 02/28/2024 10:07 AM [facility] Glucose 230(H) 70 - 100 mg/dL LAB CHEMISTRY METHOD 02/28/2024 10:07 AM [facility] BUN 53(H) 5 - 25 mg/dL LAB CHEMISTRY METHOD 02/28/2024 10:07 AM [facility] Creatinine 1.69(H) 0.50 - 1.10 mg/dL LAB CHEMISTRY METHOD 02/28/2024 10:07 AM [facility] eGFR 31(L) >=60 mL/min/1. 73m2 LAB CHEMISTRY METHOD 02/28/2024 10:07 AM [facility] Comment:Calculation based on the??Chronic Kidney Disease Epidemiology Collaboration (CKD-EPI) equation refit??without adjustment for race. BUN/Creatinine Ratio 31.4 LAB CHEMISTRY METHOD 02/28/2024 10:07 AM [facility] Calcium 9.6 8.5 - 10.5 mg/dL LAB CHEMISTRY METHOD 02/28/2024 10:07 AM [facility] Blood Venous blood specimen / Unknown Venipuncture / Unknown 02/28/2024 5:23 AM EST 02/28/2024 9:12 AM EST John Paul Bass MD LAB BLOOD ORDERABLES Final Resul t Performing Organization Address [facility] Co de Phone Number [facility] [address] [place] [address], [place] [phone] * (ABNORMAL) Hemoglobin A1c (02/14/2024 6:29 AM EST) Hemoglobin A1C 6.5(H) <6.5 % LAB CHEMISTRY METHOD 02/14/2024 1:59 PM EST [facility] Mean Bld Glu Estim. 140 mg/dL LAB CHEMISTRY METHOD 02/14/2024 1:59 PM EST [facility] Blood Venous blood specimen / Unknown Venipuncture / Unknown 02/14/2024 6:29 AM EST 02/14/2024 9:47 AM EST us John Paul Bass MD LAB BLOOD ORDERABLES Final Resul t Performing Organization Address [facility] Co de Phone Number [facility] [address] [place] [address], [place] [phone] from Last 3 Months or Most Recently Relevant to Health Maintenance Insurance [facility] Member Subscriber Plan / Payer (Ef fective 2014-Present) Name:Aaliyah Light Relation to Subscriber:Self Name:Aaliyah Light Payer ID:[id number] Group ID:[id number] Type:Not on file Address: [place] [address] [place] [address] Care Teams Scientific Programmer Relationship Specialty Start Date End Date Kali, John Paul, MD [address] [place] [address], [phone] PCP - General Family Medicine 02/14/24
--- OUTSIDE RECORDS SUMMARY | 2024-06-01 11:19 | XMS_ITS | Encounter Summary ---
Author Organization [employer] Address [address] [facility] 7t [place] [address] Care Team Providers Care Electrician Apprentice Name Role Phone Sarai Trejo MD Primary Care Provider [phone] Encounter Details Date Type Department Care Team (Late st Contact Info) Description 04/30/2022 Orders Only [facility] [address] [place], [place] [phone] Sona Manzo LPN Social History Tobacco Use [...] 10:15 AM EDT Office Visit [facility] MEDICINE [address] [place] [address] Sarai Trejo MD [address] [place] [address] documented as of this encounter Visit Diagnoses Not on filedocumented in this encounter Care Teams Electrician Apprentice Relationship Specialty Start Date End Date Sarai Trejo MD [address] [place], [place] [phone] PCP - General Family Medicine 03/22/18 documented as of this encounter
--- OUTSIDE RECORDS SUMMARY | 2024-06-01 11:19 | XMS_ITS | Clinical Summary ---
Author Organization [facility], Address [address] [place] [address] [place] [address] Phone Care Team Providers Care Spinner Cap Frame Name Role Phone Abhishek Vergara MD Primary Care Provider [phone] Allergies Active Allergy Reactions Criticality Noted Date Comments Erythromycin Other (see comments) 04/08/2021 Fish Allergy Other (see comments) 04/08/2021 Lactose Other (see comments) 04/08/2021 Other 04/09/2021 Sulfa Antibiotics Other (see comments) 04/08/19 22 Medications aspirin (ST RUBINA) 81 MG EC tablet Take 1 tablet by mouth 1 (one) time each day Active atorvastatin (LIPITOR) 80 MG tablet Take 80 mg by mouth at bed time Active clopidogrel (PLAVIX) 75 MG tablet Take 1 tablet by mouth 1 (one) time each day Active sacubitril-valsa rtan (Entresto) 49-51 MG per tablet Take 1 tablet by mouth 2 (two) times a day Active insulin aspart (NovoLOG) 100 UNIT/ML injection 40 Units Active torsemide (DEMADEX) 20 MG tablet Take 2 tablets by mouth 1 (one) time each day Active spironolactone (ALDACTONE) 25 MG tablet Take 1 tablet by mouth 1 (one) time each day Active metOLazone 2.5 MG tablet Take 2.5 mg by mouth Active loratadine (CLARITIN) 10 MG tablet Take 10 mg by mouth 1 (one) time each day Active isosorbide mononitrate (IMDUR) 30 MG 24 hr tablet Take 30 mg by mouth 1 (one) time each day Do not crush or chew. Active Riboflavin (Vitamin B-2) 100 MG tablet 2 Active magnesium oxide 400 (240 Mg) MG tablet 2 Active loperamide (IMODIUM) 2 MG capsule 2 Active lidocaine (XYLOCAINE) 5 % ointment 1 Active ammonium lactate (AMLACTIN) 12 % cream Apply 1 applicator topically 9 Active Eliquis 5 MG tablet 3 Active cholecalciferol (VITAMIN D-3) 25 MCG (1000 UT) capsule Take 1,000 Units by mouth 1 (one) time each day Active Empagliflozin (Jardiance) 10 MG tablet Take 10 mg by mouth 1 (one) time each day in the morning Active insulin glargine (LANTUS) 100 UNIT/ML injection Inject 10 Units under the skin 1 (one) time each day Active insulin glargine (Lantus SoloStar) 100 UNIT/ML injection Inject 25 Units under the skin every night Active Insulin Lispro 100 UNIT/ML solution Inject under the skin 3 (three) times a day before meals 3-8 units-- sliding scale Active metoprolol tartrate 25 MG tablet Take 12.5 mg by mouth in the morning and 12.5 mg in the evening. Active polyethylene glycol (GLYCOLAX) 17 g packet Take 17 g by mouth in the morning and 17 g in the evening. Active Active Problems Problem Noted Date Diagnosed Date Recurrent urinary tract infection 12/16/2022 Stage 3a chronic kidney disease 04/08/2021 Chronic systolic heart failure 04/08/2021 Essential hypertension 04/08/2021 Encounters Date Type Department Care Team Description 05/31/2024 Telephone [facility] [address] [place] [address] Dunia Butler, JACQUE 04/10/2024 Office Communication [facility] [address] [place] [address] Dunia Butler, RN from Last 3 Months Family History Relation Status Comments Father Mother Social History Tobacco Use Types Packs/Day Years Used Date Smoking Tobacco: Never Smokeless Tobacco: Never Tobacco Cessation:Counseling Given: Not Answered Alcohol Use Standard Drinks/Week Comments No 0 (1 standard drink = 0.6 oz pur e alcohol) Comments Unknown Sex and Gender Information Value Date Recorded Sex Assigned at Not on file Legal Sex Female 4:56 PM EST Gender Identity Not on file Sexual Orientation Not on file Last Filed Vital Signs Vital Sign Reading Time Taken Comments Blood Pressure 114/68 09/02/2022 3:32 PM EDT Pulse 72 09/02/2022 3:32 PM EDT Temperature - - Respiratory Rate - - Oxygen Saturation 83% 06/25/2021 3:44 PM EDT Inhaled Oxygen Concentration - - Weight 72.2 kg (159 lb 3.2 oz) 06/25/2021 3:44 P M EDT Height 149.9 cm (4' 11 ) 04/09/2021 3:42 PM EST Body Mass Index 32.15 04/09/2021 3:42 PM EST Plan of Treatment Health Maintenance Due Date Last Done Comments Diabetes: Ophthalmology Exam 08/25/2023 Diabetes: Pedal Pulse Checked 08/25/2023 Diabetes: Sensory Foot Exam 08/25/2023 Diabetes: Visual Foot Exam 08/25/2023 Influenza Vaccine (#1) 2023 3, 12/25/2019 Diabetes: Hemoglobin A1C 05/16/2024 024, 03/27/2019 Pneumococcal Vaccine: 65+ Years Completed 04/30/2017, 03/12/2015, 07/28/2010 Hepatitis B Vaccine Aged Out No longe r eligible based on patient's age to complete this topic Procedures Procedure Name Priority Date/Time Associated Diagnosis Comments HEMOGLOBIN A1C Routine 03/27/2019 12:38 PM EST from Last 3 Months or Most Recently Relevant to Health Maintenance Results * (ABNORMAL) Hemoglobin A1c (03/27/2019 12:38 PM EST) Hemoglobin A1C 6.2(H) (4-6) % [facility] 3 Comment: HEMOGLOBIN A1C(%) ?? GLUCOSE CONTROL INDEX ?<6% ? EXCELLENT ?6-7% ?VERY GOOD ?7-8% ?GOOD ?8-10% ? FAIR ?>10% ?POOR Hemoglobin (Hb) A1c testing is performed by Rebecca Taylor-quant immunoassay. Any cause of shortened erythrocyte survival will reduce exposure of erythrocytes to glucose with a consequent decrease in Hb A1c (%). Testing performed or reported by ~[facility], ~a Service of [facility], ~[address] [place] [id number]~ Viki Rios MD, Fruit Press Operator~ 03/27/2019 12:3 8 PM EST us Lenny Pelayo MD LAB BLOOD ORDERABLES Final Res ult [facility] 3 from Last 3 Months or Most Recently Relevant to Health Maintenance Insurance [facility] ([id number]) [place] [id number] [facility] ([id number]) Care Teams Spinner Cap Frame Relationship Specialty Start Date End Date Abhishek Vergara MD [address] [place] [address] PCP - General 04/01/20
--- OUTSIDE RECORDS SUMMARY | 2024-06-01 11:19 | XMS_ITS | Encounter Summary ---
Author Organization [facility] Address [address] [place] [address] Care Team Providers Care Educational Paraprofessional Name Role Phone John Paul Bass MD Primary Care Provider [phone] Encounter Details Date Type Department Care Team (Late st Contact Info) Description 03/11/2024 Lab Requisition [facility] Lab [address] [facility] [place] [address] John Paul Bass MD [address] [place] [address] [address] [facility] [phone] Chronic kidney disease, unspecified; Anemia, unspecified Social [...] unspecified documented in this encounter Care Teams Educational Paraprofessional Relationship Specialty Start Date End Date John Paul Bass MD [address] [facility] [address] [place], [phone] PCP - General Family Medicine 02/14/24 documented as of this encounter
--- OUTSIDE RECORDS SUMMARY | 2024-06-01 11:19 | XMS_ITS | Encounter Summary ---
Author Organization [employer] Address [address] [facility] [address] [place] [address] Care Team Providers Care Refining Engineer Name Role Phone Sarai Trejo MD Primary Care Provider [phone] Reason for Visit * Reason Onset Date Comments HDF 07/03/2022 Encounter Details Date Type Department Care Team ([facility] st Contact Info) Description 07/03/[address] [facility] [address] [place], [place] [phone] Sarai Trejo MD [address] [place], [place] [phone] HDF Social History Tobacco Use Types Packs/Day Years [...] encounter Miscellaneous Notes * Telephone Encounter - Bernarda Terrazas RN - 07/03/2022 12:20 PM EDT Triage call Pt reports being in the hospital recently due to pneumonia. Pt has reported headache, Pt reports that a surgery in 2006 for brain aneurysm occurred and since that time Pt has had headaches . Pt reports woke up with headache today and took tylenol with good effect, headache is subsiding.Pt agrees with disposition of home care at this time. Pt does have HDF with PCP 5/4 and prefers to speak only with PCP. Protocol Used: Headache (Adult) Protocol-Based Disposition: Home Care Positive Triage Question: * Mild-moderate headache * All higher-acuity triage questions were negative Care Advice Discussed: * Pain Medicines * Rest * Apply Cold to the Area * Stretching * Reasons To Call Back - Headache lasts longer than 24 hours - You become worse * Telephone Encounter - Joaquina Phan - 07/03/2022 9:29 AM EDT HDF F/U (no symptoms) Patient hospitalized at [facility]. Patient was admitted on 06/30/2022 and discharged on 07/02/2022 . The patient was diagnosed with Pulmonary. Patient advised will forward to [facility] Clinical Coordinators for follow up and appointment scheduling. Please contact pt at [phone] maori Speaker documented in this encounter Plan of Treatment Upcoming Encounters Date Type Department Care Team (Late st Contact Info) Description 06/05/2024 10:15 AM EDT Office Visit [facility] [address] [place] [phone] Sarai Trejo MD [address] [place] [phone] documented as of this encounter Visit Diagnoses Not on filedocumented in this encounter Care Teams Refining Engineer Relationship Specialty Start Date End Date Sarai Trejo MD [address] [place] [address] PCP - General Family Medicine 03/22/18 documented as of this encounter
--- OUTSIDE RECORDS SUMMARY | 2024-06-01 11:19 | XMS_ITS | Clinical Summary ---
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 evaluated by neurologist - still capable of living in the community with assistance - supportive family member - 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 -Most recent lab: 02/15/23 TSH 1.21 -Continue current replacement Assessment & Plan (04/20/2023 12:17 PM EST): -s/p thyroidectomy -current replacement: levothyroxine to 88 mcg daily. -Most recent lab: 02/15/23 TSH 1.21 -Continue current replacement Assessment & Plan (02/13/2023 7:11 PM EST): -s/p thyroidectomy -current replacement: levothyroxine to 88 mcg daily. -Most recent lab: therapeutic TSH in 2020; update lab -Continue current replacement Assessment & Plan (10/25/2022 5:55 AM EDT): -s/p thyroidectomy -current replacement: levothyroxine to 88 mcg daily. -Most recent lab: therapeutic TSH in 2020; update lab -Continue current replacement Bronchial asthma 12/21/2014 Assessment & Plan (08/15/2023 10:28 PM EDT): - following with Dr. Terrell, last seen on 08/03/22 - Occasional hypoxemia - most recent exacerbation in June 2022 when she had community aquired pneumonia and was hospitalized - continue Wixela 250/50 as maintenance - continue montelukast - continue albuterol HFA/ neb prn Assessment & Plan (04/20/2023 12:13 PM EST): - following with Dr. Terrell, last seen on 08/03/22 - Occasional hypoxemia - most recent exacerbation in June 2022 when she had community aquired pneumonia and was hospitalized - continue Wixela 250/50 as maintenance - continue montelukast - continue albuterol HFA/ neb prn Assessment & Plan (10/25/2022 6:08 AM EDT): - following with Dr. Terrell, last seen on 08/03/22 - Occasional hypoxemia - most recent exacerbation in June 2022 when she had community aquired pneumonia and was hospitalized - continue Wixela 250/50 as maintenance - continue montelukast - continue albuterol HFA/ neb prn Assessment & Plan (08/25/2022 4:53 AM EDT): - following with [facility] pulmonology, Dr. Terrell, last seen on 08/03/22 - most recent exacerbation in June 2022 for CAP, required hospitalization and oxygen supplementation and antibiotic. - most recent PFT did not show significant obstructive airway disease, and showed restrictive airway disease - continue Wixela - continue albuterol HFA and neb prn - continue deep breathing exercise Fibromyalgia 09/18/2014 History of artificial joint 05/31/2013 Hearing loss 10/15/2011 Hyperlipidemia 10/15/2011 Type 2 diabetes mellitus 10/15/2011 Assessment & Plan (11/18/2023 12:29 PM EDT): - A1C 6.6% today -Current medications: metformin 1000 mg bid; regalinide to 3 mg tid. -Pt self-discontinued Jardiance again, due to worsening UI (beneficial for pt's HFpEF) -Treatment Hx: glipizide - discontinued due to hypoglycemia; Jardiance - discontinued due to UI -Last eye exam: 02/01/19 Dr. Curtis. No diabetic retinopathy -Last foot exam: 10/19/22 -Last microalbumin test: 02/15/23 UACR 43. Hx microalbuminuria, -Last FLP: 02/25/23 total cholesterol 141; triglyceride 137; LDL 77; HDL 37 -Last dental exam: ? Immunizations: Due for COVID booster, otherwise up to date Assessment & Plan (08/21/2023 7:57 AM EDT): - A1C 7.3% on 04/13/23, slightly increased from A1C 6.8% on 10/19/22 -Current medications: metformin 1000 mg bid; regalinide to 3 mg tid. -Pt self-discontinued Jardiance again, due to worsening UI (beneficial for pt's HFpEF) -Treatment Hx: glipizide - discontinued due to hypoglycemia; Jardiance - discontinued due to UI -Last eye exam: 02/01/19 Dr. Curtis. No diabetic retinopathy -Last foot exam: 10/19/22 -Last microalbumin test: 02/15/23 UACR 43. Hx microalbuminuria, -Last FLP: 02/25/23 total cholesterol 141; triglyceride 137; LDL 77; HDL 37 -Last dental exam: ? Immunizations: Due for COVID booster, otherwise up to date Assessment & Plan (04/20/2023 12:19 PM EST): - A1C 7.3% on 04/13/23, slightly increased from A1C 6.8% on 10/19/22 -Current medications: metformin 1000 mg bid; regalinide to 3 mg tid. -Pt self-discontinued Jardiance again, due to worsening UI (beneficial for pt's HFpEF) -Treatment Hx: glipizide - discontinued due to hypoglycemia; Jardiance - discontinued due to UI -Last eye exam: 02/01/19 Dr. Curtis. No diabetic retinopathy -Last foot exam: 10/19/22 -Last microalbumin test: 02/15/23 UACR 43. Hx microalbuminuria, -Last FLP: 02/25/23 total cholesterol 141; triglyceride 137; LDL 77; HDL 37 -Last dental exam: ? Immunizations: Due for COVID booster, otherwise up to date Assessment & Plan (02/13/2023 7:11 PM EST): A1C 6.8% on 10/19/22. BG 224 today. -Current medications: metformin 1000 mg bid; Prandin 2mg tid, increasing regalinide to 3 mg tid. -Pt self-discontinued Jardiance again, due to worsening UI (beneficial for pt's HFpEF) -Treatment Hx: glipizide - discontinued due to hypoglycemia; Jardiance - discontinued due to UI -Last eye exam: 02/01/19 Dr. Curtis. No diabetic retinopathy -Last foot exam: 10/19/22 -Last microalbumin test: 05/26/21, UACR 8.0. Hx microalbuminuria, -Last FLP: 05/26/21; TC 123; TG 134; HDL 36; LDL 61. -Last dental exam: ? Immunizations: Due for COVID booster, otherwise up to date Assessment & Plan (10/25/2022 6:12 AM EDT): A1C 6.3% on 10/19/22 -Current medications: metformin 1000 mg bid; Prandin 2mg bid -Pt self-discontinued Jardiance again, due to worsening UI (beneficial for pt's HFpEF) -Treatment Hx: glipizide - discontinued due to hypoglycemia; Jardiance - discontinued due to UI -Last eye exam: 02/01/19 Dr. Curtis. No diabetic retinopathy -Last foot exam: 10/19/22 -Last microalbumin test: 05/26/21, UACR 8.0. Hx microalbuminuria, -Last FLP: 05/26/21; TC 123; TG 134; HDL 36; LDL 61. -Last dental exam: ? Immunizations: Due for COVID booster, otherwise up to date Assessment & Plan (06/30/2022 1:07 PM EDT): A1C 7.4% today, trending up lately, A1c 7.1% in Dec 2021. -Current medications: metformin 1000 mg bid; Prandin 2mg bid -Pt self-discontinued Jardiance again, due to worsening UI (beneficial for pt's HFpEF) -Treatment Hx: glipizide - discontinued due to hypoglycemia; Jardiance - discontinued due to UI -Last eye exam: 02/01/19 Dr. Curtis. No diabetic retinopathy -Last foot exam: 10/06/21 -Last microalbumin test: 05/26/21, UACR 8.0. Hx microalbuminuria, -Last FLP: 3/7/22; TC 123; TG 134; HDL 36; LDL 61. -Last dental exam: ? Immunizations: -Influenza - up to date -Pneumovax - Completed -Hep B - Completed On aspirin Depressive disorder 10/14/2011 Gastroesophageal reflux disease 10/14/2011 Hemorrhoids 10/14/2011 Insomnia 10/14/2011 Assessment & Plan (10/25/2022 5:45 AM EDT): - both headache and nocturia are culprits - pt was evaluated by urologist, and no further treatment recommendation - previously tried zolpidem which caused a significant mental status change; will avoid Obesity 10/14/2011 Osteoporosis 10/13/2011 Overview (11/18/2023): >>OVERVIEW FOR OTHER OSTEOPOROSIS WITHOUT CURRENT PATHOLOGICAL FRACTURE WRITTEN ON 08/11/2023 4:21 PM BY TEMITOPE ESPANA MA Last Assessment & Plan: The patient has multiple risk factors for osteoporosis as indicated in the HPI. I did biochemical evaluation but I did not find any abnormalities other than low serum phosphorus and magnesium levels. Also low 24-hour urine phosphorus. Her 24-hour urine calcium output was in the reference range so I would assume that she is getting adequate calcium intake. She does not have vitamin D deficiency or hyperparathyroidism. So she will benefit from an antiresorptive medications but does not want to use alendronate. Because the bone mineral density is worse at the hip I will suggest using zoledronic acid or Prolia. Prolia is not very effective for the hip. So the zoledronic acid is an infusion once a year and this will be done at [address] [place] [address]. She states that she is willing to do this. I also suggest that she take a small calcium tablet at least once a day with food because I think it may be helpful. She is apparently taking vitamin D supplements in the morning. Assessment & Plan (11/18/2023 6:26 AM EDT): Hx osteoporosis in 2000 DEXA on 09/05/20 T-score -2.2, osteopenia DEXA on 12/23/22 T-score -2.9, osteoporosis Pt took > 5 years of alendronate, 9024-8105, then restarted in [address] Guzmán Currently on zoledronic acid Continue weight bearing exercise. Continue adequate calcium and vitamin D intake Assessment & Plan (08/21/2023 7:55 AM EDT): Hx osteoporosis in 2000 DEXA on 09/05/20 T-score -2.2, osteopenia DEXA on 12/23/22 T-score -2.9, osteoporosis Pt took > 5 years of alendronate, 8696-2852, then restarted in [address] Guzmán Currently on zoledronic acid Continue weight bearing exercise. Continue adequate calcium and vitamin D intake Assessment & Plan (04/20/2023 12:16 PM EST): Hx osteoporosis in 2000 DEXA on 09/05/20 T-score -2.2, osteopenia DEXA on 12/23/22 T-score -2.9, osteoporosis Pt took > 5 years of alendronate, 9117-7060, then restarted in 2020 Pt requested to be referred to powder worker tnt for other medications. Referred to powder worker tnt. Dr. Guzmán's office. Patient has an upcoming appointment. Continue weight bearing exercise. Continue adequate calcium and vitamin D intake Assessment & Plan (02/13/2023 7:06 PM EST): Hx osteoporosis in 2000 DEXA on 09/05/20 T-score -2.2, osteopenia DEXA on 12/23/22 T-score -2.9, osteoporosis Pt took > 5 years of alendronate, 2293-2631, then restarted in 2020 Pt requested to be referred to powder worker tnt for other medications. Referred to powder worker tnt. Dr. Guzmán's office. Pt has not received an appt yet. Pt requests to be referred to another powder worker tnt. Informed that it may delay her appt further, but pt insists. Continue weight bearing exercise. Continue adequate calcium and vitamin D intake Assessment & Plan (10/25/2022 6:34 AM EDT): Hx osteoporosis in 2000 DEXA on 09/05/20 T-score -2.2, osteopenia Continue alendronate Pt took 5 years of alendronate, then restarted Update DEXA Osteoarthritis of knee 10/17/2004 Assessment & Plan (11/18/2023 12:28 PM EDT): - s/p total knee replacement - injury on September 2021 due to a fall - bruises are resolving - evaluated by orthopedist after the fall - she completed PT Resolved Problems Problem Noted Date Diagnosed Date Resolved Date Community acquired pneumonia 07/23/2022 08/25/2022 Assessment & Plan (07/23/2022 1:52 PM EDT): Pt here for a HDF admitted to [facility] from 06/30/22 until 07/02/22. She presented with c/o SOB from PCP's office and found to be in acute hypoxic respiratory failure with O2 85% on RA. Diagnosed with CAP by CXR. Treated with IV ceftriaxone and azithromycin. Patient recovered quickly and sating at 93% on RA, breathing comfortably. Patient was to complete 17 days of cefuroxime 500 mg twice a day . Hospital discharge follow-up 07/23/2022 10/25/2022 Encounters Date Type Department Care Team Description 05/30/2024 Refill [facility] [address] [place] [address] Sarai Trejo MD 05/30/2024 Telephone [facility] MEDICINE [address] [place] [address] Sarai Trejo MD CHART PREP 05/25/2024 Refill [facility] [address] [place] [address] Sarai Trejo MD Pain 04/25/2024 Telephone C MEDICINE [address] [place] [address] Temitope Espana MA chart prep 04/14/2024 Refill [facility] [address] [place] [address] Luna Martinez MD 04/06/2024 Refill [facility] [address] [place] [address] Sarai Trejo MD Pain 03/31/2024 Refill [facility] [address] [facility] [place] [address] Sarai Trejo MD 03/27/2024 Telephone [facility] [address] [facility] [place] [address] Sarai Trejo MD Appointment Request 03/14/2024 Telephone [facility] [address] [place] [address] Sarai Trejo MD No Show 03/09/2024 Telephone [facility] [address] [place] [address] Temitope Espana MA chart prep 03/09/2024 Abstract [facility] [address] [place] [address] Temitope Espana MA 03/07/2024 Telephone [facility] [address] [place] [address] Temitope Espana [place] Appointment Request 03/03/2024 Telephone [facility] [address] [place] [address] Kimberly Liriano MA DME from [place] from Last 3 Months Immunizations Name Administration Dates Next Due Hep B, adult 05/27/2015,01/25/2014,11/13/2013 Influenza High-dose Quadriva lent Preservative Free 02/08/2023,02/01/2020 Influenza injectable quadriv alent IIV4 with preservative 04/23/2017,01/14/2016 Influenza injectable quadriv alent preservative free 12/19/2018 Influenza, High Dose Seasona l, Preservative Free 01/10/2018 Influenza, IIV3, injectable 01/03/2020,1 ,01/20/2018,01/25,02/03/2011,02/06/2010,12/05/2008 ,03/05/2008,01/25/2007,12/31/2005,01/20,02/12/2004 Influenza, Split (incl. rahul fied surface antigen) 12/11/2011 Pfizer Covid-19 Vaccine 12+ 04/13/2023 Pneumococcal Conjugate PCV 13 06/15/2014 Pneumococcal Polysaccharide PPSV23 11/13/2013, TD (adult), 2 Lf tetanus tox oid, preservative free, adsorbed 05/04/2011,12/31/2005 Tdap 07/13/2016 Zoster, Recombinant 01/04/2020,03/20/2019 Zoster, live 06/15/2014 Social History Tobacco Use Types Packs/Day Years Used Date Smoking Tobacco: Former Cigarettes Passive Smoke Exposure: Past Smokeless Tobacco: Never Tobacco Cessation:Counseling Given: Not Answered Depression Answer Date Recorded Patient Health Questionnaire-9 [...] not to disclose 2021 10:17 AM EDT Last Filed Vital Signs Vital Sign Reading Time Taken Comments Blood Pressure 129/70 02/04/2024 10:17 AM EST Pulse 87 02/04/2024 10:17 AM EST Temperature 36.4 ??C (97.5 ??F) 02/04/2024 10:[address] Respiratory Rate 20 02/04/2024 10:17 AM EST Oxygen Saturation 95% 02/04/2024 10:17 AM EST Inhaled Oxygen Concentration - - Weight 71.8 kg (158 lb 6.4 oz) 11/18/2023 12:02 PM EDT Height 152.4 cm (5') 11/18/2023 12:02 PM EDT Body Mass Index 30.94 11/18/2023 12:02 PM EDT Plan of Treatment Upcoming Encounters Date Type Department Care Team (Late st Contact Info) Description 06/05/2024 10:15 AM EDT Office Visit [facility] [address], [place] [phone] Sarai Trejo MD [address] [place] [address] Health Maintenance Due Date Last Done Comments Diabetes: Foot Exam 1954 Alcohol/Substance Use Screening 1956 Hepatitis C Screening 1962 RSV Patients and Patients Aged 60 years or older (1 - 1-dose 75+ series) 12/14/2019 SDOH Screening 07/01/2023 06/30/2022 COVID-19 Vaccine ( season) 2023 04/13/2023, 10/06/2021, 04/18/2021, Additional history exists Influenza Vaccine (#1) 2023 , 02/01/2020, 01/03/2020, Additional history exists Diabetes: Urine Protein Screening 02/16/2024 02/15/2023, 10/19/2022, 05/26/2021, Additional history exists Lipid Panel 02/26/2024 02/25/2023, 09/21, 05/26/2021, Additional history exists Depression Screening 08/11/2024 08/12/2023, 08/12/19 Diabetes: Hemoglobin A1C 09/05/202403/07/2 024, 11/18/2023, 08/12/2023, Additional history exists Tobacco Screening 02/03/2025 02/04/2024 Eye Exam 10/06/2025 10/07/2023 DTaP/Tdap/Td Vaccines (2 - Td or Tdap) 07/13/2026 07/13/2016, 05/04/2011, 12/31/2005 Pneumococcal Vaccine: 50+ Years Completed 06/15/2014, 11/13/2013, 01/30/2005 Hepatitis B Vaccines Completed 05/27/2015, 01/25/2014, 11/13/2013 Zoster Vaccines Completed 01/04/2020, 02/21, 06/15/2014 HIB Vaccines Aged Out No longer eligi [...] patient's age to complete this topic Meningococcal Vaccine Aged Out No suzanne radha eligible based on patient's age to complete this topic RSV under 20 months Aged Out No longe r eligible based on patient's age to complete this topic Rotavirus Vaccines Aged Out No longer eligible based on patient's age to complete this topic Goals Goal Patient Goal Type Associated Problems Recent Progress Patient-Stated? Author Blood Pressure < 140/90 Blood Pressure 129/70(2023 10:17 AM EST) No Yury Bee PharmD Hemoglobin A1c < 7 Result Component Credit(2023 12:13 PM EST) No Yury Bee PharmD Procedures Procedure Name Priority Date/Time Associated Diagnosis Comments POCT GLYCATED HEMOGLOBIN, TOTAL Routine 11/18/2023 12:05 PM EDT Type 2 diabetes mellitus without complication, without long-term current use of insulin ([facility]) DIABETES EYE EXAM Routine 10/07/2023 LIPID PANEL WITH REFLEX TO DIRECT LDL Routine 02/25/2023 10:43 AM EST Mixed hyperlipidemia ALBUMIN, RANDOM URINE W/CREATININE Routine 02/15/2023 1:46 PM EST Type 2 diabetes mellitus without complication, without long-term current use of insulin (CMS/HCC) from Last 3 Months or Most Recently Relevant to Health Maintenance Results * Diabetes Eye Exam (10/07/2023) Eye Exam Normal Normal Per Fang MD HEALTH MAINTENANCE Final Result * (ABNORMAL) Lipid Panel with Reflex to Direct LDL (02/25/2023 10:43 AM EST) Triglycerides 135 <150 mg/dL [facility] Comment:Desirable Triglyceri de: less than 150 mg/dLBorderline High Triglyceride 150-199 mg/dLHigh Triglyceride: 200-499 mg/dLVery High Triglyceride: greater than or equal to 5OO mg/dL Cholesterol 141 <200 mg/dL [facility] Comment:Desirable Cholestero l: less than 200 mg/dLBorderline High Cholesterol: 200-239 mg/dLHigh Cholesterol: greater than 239 mg/dL LDL Cholesterol Calculated 77 <100 mg/dL [facility] Comment:Desirable LDL: less than 100 mg/dLNear Optimal/Above Optimal LDL: 110- 129 mg/dLBorderline High LDL: 130-159 mg/dLHigh LDL: 160-189 mg/dLVery High LDL: greater than or equal to 190 mg/dL HDL Cholesterol 37(L) >40 mg/dL [facility] Comment:Desirable HDL: great er than 40 mg/dL Note: This HDL assay may give artificially low results in patients with liver disease. Blood 02/25/2023 10:4 3 AM EST 02/25/2023 10:45 AM EST Sarai Trejo MD LAB BLOOD ORDERABLES Final Resul t [facility] [address], [place] [phone] * (ABNORMAL) Albumin, Random Urine W/Creatinine (02/15/2023 1:46 PM EST) Creatinine, Urine 52.99 mg/dL [facility] Microalbumin Urine 23.0 mg/L [facility] Microalbum Creatinine Ratio Ur 43.4(H) <30 ug/mg cr [facility] Comment:Albumin/Creatinine R atio Reference Ranges: Normal: < 30 ug/mg creatinine Microalbuminuria: 30 - 300 ug/mg creatinineClinical Albuminuria: > 300 ug/mg creatinine Urine 02/15/2023 1:46 PM EST 02/15/2023 2:51 PM EST Sarai Trejo MD LAB URINE ORDERABLES Final Resul t [facility] [address] [place] [address] [phone] from Last 3 Months or Most Recently Relevant to Health Maintenance Insurance Care Teams Election Judge Relationship Specialty Start Date End Date Sarai Trejo MD [address] [place] [id number] PCP - General Family Medicine 03/22/18
--- OUTSIDE RECORDS SUMMARY | 2024-06-01 11:20 | XMS_ITS | Encounter Summary ---
Author Organization [employer] Address [address] [facility] [address] [place] [address] Care Team Providers Care Animal Tech Name Role Phone Sarai Trejo MD Primary Care Provider [phone] Encounter Details Date Type Department Care Team (Late st Contact Info) Description 12/11/2022 Orders Only [facility]INE [address] [place], [place] [phone] Sarai Trejo MD [address] [place], [place] [phone] Chronic intractable headache, unspecified headache type (Primary Dx); Female stress incontinence; Primary hypertension; Type 2 diabetes mellitus without complication, without long-term current use of insulin ([facility]); Weight loss; Postoperative hypothyroidism Social History Tobacco Use Types Packs/Day Years [...] Description 06/05/2024 10:15 AM EDT Office Visit [facility] [address] [place], [place] [phone] Sarai Trejo MD [address] [place] [address] [place] [address] Scheduled Orders Name Type Priority Associated Diagnoses Orde r Schedule Vitamin B12/Folate, Serum Panel Lab Routine Type 2 diabetes mellitus without complication, without long-term current use of insulin ([facility]) Expected: 12/11/2022 (Approximate), Expires: 12/12/2023 Albumin, Random Urine W/Creatinine Lab Routine Type 2 diabetes mellitus without complication, without long-term current use of insulin (CMS/HCC) Expected: 12/11/2022 (Approximate), Expires: 12/12/2023 Hemoglobin A1c Lab Routine Type 2 diabetes mellitus without complication, without long-term current use of insulin (CMS/HCC) Expected: 12/11/2022 (Approximate), Expires: 12/12/2023 Comprehensive Metabolic Panel Lab Routine Type 2 diabetes mellitus without complication, without long-term current use of insulin ([facility]/HCC) Expected: 12/11/2022 (Approximate), Expires: 12/12/2023 Lipid Panel with Reflex to Direct LDL Lab Routine Type 2 diabetes mellitus without complication, without long-term current use of insulin ([facility]/HCC) Expected: 12/11/2022 (Approximate), Expires: 12/12/2023 TSH W/Reflex to FT4 Lab Routine Weight loss Postoperative hypothyroidism Expected: 12/11/2022 (Approximate), Expires: 12/12/2023 CBC auto differential Lab Routine Weight loss Expected: 12/11/2022 (Approximate), Expires: 12/12/2023 Culture, Urine, Routine Microbiology Routine Female stress incontinence Expected: 12/11/2022 (Approximate), Expires: 12/12/2023 Urinalysis Complete Lab Routine Female stress incontinence Expected: 12/11/2022, Expires: 12/12/2023 documented as of this encounter Procedures Procedure Name Priority Date/Time Associated Diagnosis Comments XR DEXA AXIAL SKELETON Routine 12/23/2022 10:55 AM EDT documented in this encounter Results * XR DEXA AXIAL SKELETON (12/23/2022 10:55 AM EDT) Anatomical Region Laterality Modality Abdomen Radiographic Carrie ging 12/23/2022 10:5 5 AM EDT Narrative 12/24/2022 11:33 AM EDT ? [facility] ? [address] ?[place] [address] ? Mammography Report ? Signed ? Patient: Kuldeep Doshi,Aaliyah I ?MR#: ?? [id number] ? : 1945 ?Acct:[id number] ? Age/Sex: 77 / F ?ADM Date: 12/23/22 ? Loc: HO.MAMMO ? Attending Dr: Sarai Trejo MD ? Ordering Physician: Sarai Trejo MD ?Results: ? Date of Service: 12/23/22 ?Follow Up: ? Procedure(s): XR DEXA axial skeleton ?? Accession Number(s): [id number] ? cc: Sarai Trejo MD ? EXAMINATION: ?? BONE DENSITOMETRY ? CLINICAL INDICATION: ?? Osteopenia. Bisphosphonate treatment. ? COMPARISON: ?? Previous BD dated 09/05/2020 and baseline BD dated 01/28/2007. ? TECHNIQUE: Using a Opara DXA System (software version: ?? 13.1) manufactured by [employer], dual-energy x-ray absorptiometry ?? was performed of the lumbar spine and left hip. The images are of good ?? technical quality. Summary results are attached. ? FINDINGS: ?? LEFT FEMUR, NECK: ?? Current: BMD 0.629 g/cm2, Z-score -1.1, T-score -2.9, osteoporosis. ?? Prior: BMD 0.729 g/cm2. ?? Baseline: BMD 0.747 g/cm2. ? LEFT FEMUR, TOTAL: ?? Current: BMD 0.770 g/cm2, Z-score -0.2, T-score -1.9, osteopenia, 12.9% ?? decrease from previous, 15.0% decrease from baseline (<5% change is not ?? significant). ?? Prior: BMD 0.884 g/cm2. ?? Baseline: BMD 0.906 g/cm2. ? AP SPINE L1-L4: ?? Current: BMD 1.397 g/cm2, Z-score 3.3, T-score 1.8, normal, 5.6% ?? increase from previous, 38.6% increase from baseline (<5% change is not ?? significant). ?? Prior: BMD 1.323 g/cm2. ?? Baseline: BMD 1.008 g/cm2. ? IDENTIFIED RISK FACTORS: ?? Family history (parent hip fracture), history of fracture (adult), ?? menopause, osteoporosis. ? HISTORY OF FRACTURE: ?? Shoulder. ? MEDICATIONS: ?? Multivitamin, vitamin D, bisphosphonate. ? MM/XR DEXA axial skeleton ?? IMPRESSION: ?? 1. DIAGNOSIS: Severe osteoporosis based on the lowest T-score value of ?? -2.9 in the femoral neck, and the history of a shoulder fracture, ?? applying World Health Organization criteria. ? 2. 10-YEAR FRACTURE RISK PREDICTION, FRAX: According to the guidelines, ?? FRAX calculation should only be performed on patients in the osteopenia ?? bone density category. Therefore, FRAX was not performed on this ?? patient. ?? 3. Treatment Recommendations: NOF guidelines recommend consideration ?? for treatment in postmenopausal women and men age 50 and older ?? presenting with the following: ?? -A hip or vertebral (clinical or morphometric) fracture. ?? -T-score less than or equal to -2.5 at the femoral neck or spine after ?? appropriate evaluation to exclude secondary causes. ?? -Low bone mass at the hip or spine and a 10-year fracture probability ?? by FRAX of greater than or equal to 3% for hip fracture or greater than ?? or equal to 20% for major osteoporotic fracture based on the [place] adapted ?? WHO algorithm. ?? 4. Other Recommendations: All treatment decisions require clinical ?? judgment and consideration of individual patient factors, including ?? patient preferences, comorbidities, previous drug use, risk factors not ?? captured in the FRAX model (e.g. frailty, falls, vitamin D deficiency, ?? increased bone turnover, interval significant decline in bone density) ?? and possible under or overestimation of fracture risk by FRAX. ?? Additional medical evaluation for secondary cause of low bone mineral ?? density may be appropriate. ? FUTURE SCAN RECOMMENDATION: ?? People with diagnosed cases of osteoporosis or at high risk for ?? fracture should have regular bone mineral density tests. For patients ?? eligible for Medicare, routine testing is allowed once every 2 years. ?? The testing frequency can be increased to one year for patients who ?? have rapidly progressing disease, those who are receiving or ?? discontinuing medical therapy to restore bone mass, or have additional ?? risk factors. ? Dictated By: ?Keith Martinez MD ? Signed By: ?<Electronically signed by Keith Martinez MD in OV> ?12/24/22 1129 ? DD/ 1055 ? TD/TT: ? Suture Polisher: DB ? Procedure Note Aristeojanene, Image - 12/24/2022 [facility] [address] [place], [place] [address] Mammography Report Signed Patient: Aaliyah Brennan [facility]#: [id number] : 5Acct:[id number] Age/Sex: 77 / FADM Date: 12/23/22 Loc: [facility] Attending Dr: Sarai Trejo MD Ordering Physician: Sarai Trejoesults: Date of Service: 12/23/22Follow Up: Procedure(s): XR DEXA axial skeleton Accession Number(s): [id number] cc: Sarai Trejo MD EXAMINATION: BONE DENSITOMETRY CLINICAL INDICATION: Osteopenia. Bisphosphonate treatment. COMPARISON: Previous BD dated 09/05/2020 and baseline BD dated 01/28/2007. TECHNIQUE: Using a Opara DXA System (software version: 13.1) manufactured by [employer], dual-energy x-ray absorptiometry was performed of the lumbar spine and left hip. The images are of good technical quality. Summary results are attached. FINDINGS: LEFT FEMUR, NECK: Current: BMD 0.629 g/cm2, Z-score -1.1, T-score -2.9, osteoporosis. Prior: BMD 0.729 g/cm2. Baseline: BMD 0.747 g/cm2. LEFT FEMUR, TOTAL: Current: BMD 0.770 g/cm2, Z-score -0.2, T-score -1.9, osteopenia, 12.9% decrease from previous, 15.0% decrease from baseline (<5% change is not significant). Prior: BMD 0.884 g/cm2. Baseline: BMD 0.906 g/cm2. AP SPINE L1-L4: Current: BMD 1.397 g/cm2, Z-score 3.3, T-score 1.8, normal, 5.6% increase from previous, 38.6% increase from baseline (<5% change is not significant). Prior: BMD 1.323 g/cm2. Baseline: BMD 1.008 g/cm2. IDENTIFIED RISK FACTORS: Family history (parent hip fracture), history of fracture (adult), menopause, osteoporosis. HISTORY OF FRACTURE: Shoulder. MEDICATIONS: Multivitamin, vitamin D, bisphosphonate. MM/XR DEXA axial skeleton IMPRESSION: 1. DIAGNOSIS: Severe osteoporosis based on the lowest T-score value of -2.9 in the femoral neck, and the history of a shoulder fracture, applying World Health Organization criteria. 2. 10-YEAR FRACTURE RISK PREDICTION, FRAX: According to the guidelines, FRAX calculation should only be performed on patients in the osteopenia bone density category. Therefore, FRAX was not performed on this patient. 3. Treatment Recommendations: NOF guidelines recommend consideration for treatment in postmenopausal women and men age 50 and older presenting with the following: -A hip or vertebral (clinical or morphometric) fracture. -T-score less than or equal to -2.5 at the femoral neck or spine after appropriate evaluation to exclude secondary causes. -Low bone mass at the hip or spine and a 10-year fracture probability by FRAX of greater than or equal to 3% for hip fracture or greater than or equal to 20% for major osteoporotic fracture based on the [place] adapted WHO algorithm. 4. Other Recommendations: All treatment decisions require clinical judgment and consideration of individual patient factors, including patient preferences, comorbidities, previous drug use, risk factors not captured in the FRAX model (e.g. frailty, falls, vitamin D deficiency, increased bone turnover, interval significant decline in bone density) and possible under or overestimation of fracture risk by FRAX. Additional medical evaluation for secondary cause of low bone mineral density may be appropriate. FUTURE SCAN RECOMMENDATION: People with diagnosed cases of osteoporosis or at high risk for fracture should have regular bone mineral density tests. For patients eligible for Medicare, routine testing is allowed once every 2 years. The testing frequency can be increased to one year for patients who have rapidly progressing disease, those who are receiving or discontinuing medical therapy to restore bone mass, or have additional risk factors. Dictated By: Keith Martinez MD Signed By: <Electronically signed by Keith Martinez MD in OV> 12/24/22 1129 DD/ 1055 TD/TT: Suture Polisher: DB Sarai Trejo MD IMG XR PROCEDURES Edited Result - Final documented in this encounter Visit Diagnoses Diagnosis Chronic intractable headache, unspecified headache type- Primary Female stress incontinence Primary hypertension Unspecified essential hypertension Type 2 diabetes mellitus without complication, without long-term current use of insulin ([facility]) Weight loss Loss of weight Postoperative hypothyroidism Postsurgical hypothyroidism documented in this encounter Care Teams Animal Tech Relationship Specialty Start Date End Date Sarai Trejo MD [address] [place] [phone] PCP - General Family Medicine 03/22/18 documented as of this encounter
--- OUTSIDE RECORDS SUMMARY | 2024-06-01 11:20 | XMS_ITS | Encounter Summary ---
Author Organization [facility] Address [address] [place] [address] Care Team Providers Care Land Economist Name Role Phone John Paul Bsas MD Primary Care Provider [phone] Encounter Details Date Type Department Care Team (Late st Contact Info) Description 03/01/2024 Lab Requisition [facility] - Main Lab [address] [facility] [place] [address] John Paul Bass MD [address] [facility] [address] [facility] [address] Urinary tract infection, site not specified Social History Tobacco Use Types Packs/Day Years Used Date Smoking Tobacco: Never Assessed Comments Unknown Sex and Gender Information Value Date Recorded Sex Assigned at Not on file Legal Sex Female 4:50 AM EST Gender Identity Not on file Sexual Orientation Not on file documented as of this encounter Plan of Treatment Not on file documented as of this encounter Procedures Procedure Name Priority Date/Time Associated Diagnosis Comments URINALYSIS WITH REFLEX MICROSCOPIC Routine 03/01/2024 1:00 AM EST Urinary tract infection, site not specified PUENTES URINE CULTURE TUBE Routine 03/01/2024 1:00 AM EST Urinary tract infection, site not specified URINALYSIS WITH REFLEX MICROSCOPIC Routine 03/01/2024 1:00 AM EST Urinary tract infection, site not specified documented in this encounter Results * Puentes urine culture tube (03/01/2024 1:00 AM EST) Extra Tube Hold for add-ons. 03/01/2024 1:01 PM [facility] Comment:Auto resulted. Urine Urine specimen obtained by clean catch procedure / Unknown 03/01/2024 1:00 AM EST 03/01/2024 11:03 AM EST us John Paul Bass MD LAB URINE ORDERABLES Final Resul t [facility] [address] [place] [address], * (ABNORMAL) Urinalysis with reflex microscopic (03/01/2024 1:00 AM EST) Specific [place] Urine 1.009 1.003 - 1.030 LAB URINALYSIS - AUTOMATED METHOD 03/01/2024 11:29 AM [facility] pH, Urine 5.5 5.0 - 8.0 pH LAB URINALYSIS - AUTOMATED METHOD 03/01/2024 11:29 AM [facility] Leukocytes, Urine Large(A) Negative LAB URINALYSIS - AUTOMATED METHOD 03/01/2024 11:29 AM [facility] Nitrite, Urine Negative Negative LAB URINALYSIS - AUTOMATED METHOD 03/01/2024 11:29 AM [facility] Protein, Urine Negative <=Trace mg/dL LAB URINALYSIS - AUTOMATED METHOD 03/01/2024 11:29 AM [facility] Glucose, Urine Negative Negative mg/dL LAB URINALYSIS - AUTOMATED METHOD 03/01/2024 11:29 AM [facility] Ketones, Urine Negative Negative mg/dL LAB URINALYSIS - AUTOMATED METHOD 03/01/2024 11:29 AM [facility] Urobilinogen, Urine 0.2 0.2 - 1.0 mg/dL LAB URINALYSIS - AUTOMATED METHOD 03/01/2024 11:29 AM [facility] Bilirubin, Urine Negative Negative LAB URINALYSIS - AUTOMATED METHOD 03/01/2024 11:29 AM [facility] Blood, Urine Negative Negative LAB URINALYSIS - AUTOMATED METHOD 03/01/2024 11:29 AM [facility] RBC, Urine 1.0 0 - 4 /HPF LAB URINALYSIS - AUTOMATED METHOD 03/01/2024 11:29 AM [facility] WBC, Urine 152.9(H) 0 - 4 /HPF LAB URINALYSIS - AUTOMATED METHOD 03/01/2024 11:29 AM [facility] Squamous Epithelial, Urine 8 0 - 60 /LPF LAB URINALYSIS - AUTOMATED METHOD 03/01/2024 11:29 AM [facility] Bacteria, Urine Few(A) Negative /HPF LAB URINALYSIS - AUTOMATED METHOD 03/01/2024 11:29 AM [facility] Hyaline Casts, Urine 2.5 0 - 3 /LPF LAB URINALYSIS - AUTOMATED METHOD 03/01/2024 11:29 AM [facility] Urine Urine specimen obtained by clean catch procedure / Unknown Non-blood Collection / Unknown 03/01/2024 1:00 AM EST 03/01/2024 11:02 AM EST us John Paul Bass MD LAB URINE ORDERABLES Final Resul t [facility] [address] [place] [address], documented in this encounter Visit Diagnoses Diagnosis Urinary tract infection, site not specified documented in this encounter Care Teams Land Economist Relationship Specialty Start Date End Date John Paul Bass MD [address] [place] [address], [phone] PCP - General Family Medicine 02/14/24 documented as of this encounter
--- OUTSIDE RECORDS SUMMARY | 2024-06-01 11:20 | XMS_ITS | Clinical Summary ---
Author Organization [facility] Address [address] [place] [address] Care Team Providers Care Organic Search Lead Name Role Phone Unavailable Primary Care Provider Unavailabl e Allergies Active Allergy Reactions Criticality Noted Date Comments Fish 06/30/2022 Other reaction(s): white fish Fish Allergy 06/30/2022 Other reaction(s): white fish Tramadol 09/15/2021 Medications Medication Sig Dispensed Refills Start Date End Date Status acetaminophen (TYLENOL EXTRA STRENGTH) 500 MG tablet TAKE 2 TABLETS BY MOUTH EVERY 8 HOURS NEEDED 0 05/17/2023 Active albuterol (Ventolin HFA) 108 (90 Base) MCG/ACT inhaler INHALE 2 PUFFS BY MOUTH EVERY 4 TO 6 HOURS NEEDED FOR DIFFICULTY BREATHING, NO MORE THAN FOUR TIMES DAILY 0 06/21/2023 Active amLODIPine (NORVASC) tablet 5 mg Take 1 tablet (5 mg total) by mouth. 0 11/09/2022 Active aspirin 81 MG EC tablet Take 1 tablet (81 mg total) by mouth every night at bedtime. 0 11/23/2023 Active atorvastatin (LIPITOR) tablet 40 mg Take 1 tablet (40 mg total) by mouth every night at bedtime. 0 01/10/2024 Active cetirizine (ZyrTEC) 5 MG tablet Take 1 tablet (5 mg total) by mouth. 0 01/10/2024 Active fluticasone-salmeter ol (ADVAIR) 250-50 MCG/ACT DISKUS INHALE 1 PUFF BY MOUTH TWICE DAILY RINSE MOUTH AFTER USING. 0 06/09/2022 Active magnesium oxide (MAG-OX) 400 MG tablet TAKE 1 TABLET BY MOUTH EVERY OTHER DAY IN THE EVENING 0 10/05/2023 Active metFORMIN (GLUCOPHAGE-XR) ER 24 hr tablet 500 mg TAKE 2 TABLETS BY MOUTH TWICE DAILY IN THE MORNING AND EVENING WITH MEALS 0 09/28/2023 Active metoprolol tartrate (LOPRESSOR) 25 MG tablet Take 1 tablet (25 mg total) by mouth. 0 06/24/2022 Active montelukast (SINGULAIR) 10 MG tablet Take 1 tablet (10 mg total) by mouth every evening. 0 10/26/2023 Active pantoprazole (PROTONIX) 40 MG tablet Take 1 tablet (40 mg total) by mouth daily. 0 09/28/2023 Active repaglinide (PRANDIN) 2 MG tablet Take 1 tablet (2 mg total) by mouth. 0 02/08/2023 Active Social History Tobacco Use Types Packs/Day Years Used Date Smoking Tobacco: Never Assessed Sex and Gender Information Value Date Recorded Sex Assigned at Not on file Gender Identity Not on file Sexual Orientation Not on file Job Start Date Occupation Industry Not on file Not on file Not on file Last Filed Vital Signs Vital Sign Reading Time Taken Comments Blood Pressure 128/71 01/18/2024 1:11 PM EDT Pulse 80 01/18/2024 1:11 PM EDT Temperature 35.9 ??C (96.7 ??F) 01/18/2024 1:11 PM ED T Respiratory Rate - - Oxygen Saturation - - Inhaled Oxygen Concentration - - Weight - - Height - - Body Mass Index - - Plan of Treatment Health Maintenance Due Date Last Done Comments Hepatitis C Screening 1945 COVID-19 Vaccine (#1) 06/12/1946 Depression Screening 1956 Preventative Health Evaluation 1962 Fall Risk Assessment 2009 Osteoporosis Screening (DEXA Scan) 2009 RSV Adult > 60+ Yrs or (1 - 1-dose 75+ series) 12/14/2019 Influenza Vaccine (#1) 2023 3, 02/01/2020, 01/03/2020, Additional history exists DTap / Tdap / Td (2 - Td or Tdap) 07/13/2026 07/13/2016 Pneumococcal Vaccine Completed 06/15/2014, 11/13/2013, 01/30/2005 Hepatitis B Vaccines Completed 05/27/2015, 01/25/2014, 11/13/2013 Shingrix-Zoster Vaccine Completed 01/04/2020, 03/20 RSV Ped < 20 months Aged Out No longe r eligible based on patient's age to complete this topic
--- OUTSIDE RECORDS SUMMARY | 2024-06-01 11:20 | XMS_ITS | Encounter Summary ---
Author Organization [facility], Address [address] [place] [address] Phone Care Team Providers Care Furniture Assembler Name Role Phone Abhishek Vergara MD Primary Care Provider [phone] Encounter Details Date Type Department Care Team (Late st Contact Info) Description 06/23/2022 Documentation Only [facility], [address] [place] [address] Abhishek Vergara MD [address] [place] [address] Social History Tobacco Use Types Packs/Day Years [...] on filedocumented in this encounter Care Teams Furniture Assembler Relationship Specialty Start Date End Date Abhishek Vergara MD [address] [place] [address] PCP - General 04/01/20 documented as of this encounter
--- OUTSIDE RECORDS SUMMARY | 2024-06-01 11:20 | XMS_ITS | Encounter Summary ---
Author Organization [employer] Address [address] [facility] 7[address] [place] [address] Care Team Providers Care Senior Statistician Name Role Phone Sarai Trejo MD Primary Care Provider Encounter Details Date Type Department Care Team (Late st Contact Info) Description 11/06/2022 Orders Only [facility] MEDICINE [address] [place] [phone] Sarai Trejo MD [address] [place] [address] [phone] Right arm pain (Primary Dx); Right elbow pain; Acute pain of right shoulder Social History Tobacco Use Types Packs/Day Years [...] Description 06/05/2024 10:15 AM EDT Office Visit [facility] [address] [place] [phone] Sarai Trejo MD [address] [place] [address] [phone] documented as of this encounter Visit Diagnoses Diagnosis Right arm pain- Primary Pain in soft tissues of limb Right elbow pain Pain in joint, upper arm Acute pain of right shoulder documented in this encounter Care Teams Senior Statistician Relationship Specialty Start Date End Date Sarai Trejo MD [address] [place] [phone] PCP - General Family Medicine 03/22/18 documented as of this encounter
--- OUTSIDE RECORDS SUMMARY | 2024-06-01 11:20 | XMS_ITS | Encounter Summary ---
Author Organization [employer] Address [address] [facility] [address] [place] [address] Care Team Providers Care Foreign Legal Consultant Name Role Phone Sarai Trejo MD Primary Care Provider [phone] Encounter Details Date Type Department Care Team (Late st Contact Info) Description 03/02/[address] [facility] [address] [place], [place] [phone] Sarai Trejo MD [address] [place], [place] [phone] Abdominal pain, unspecified abdominal location (Primary Dx); Constipation, unspecified constipation type Social History Tobacco Use Types Packs/Day Years [...] t he electric, gas, oil or water [employer] threatened to shut off services in your [...] Description 06/05/2024 10:15 AM EDT Office Visit [facility] [address] [place] [address] Sarai Trejo MD [address] [place] [address] documented as of this encounter Goals Goal Patient Goal Type Associated Problems Recent Progress Patient-Stated? Author Blood Pressure < 140/90 Blood Pressure 129/70(2023 10:17 AM EST) No Yury Bee PharmD Hemoglobin A1c < 7 Result Component Credit(2023 12:13 PM EST) No Yury Bee PharmD documented as of this encounter Visit Diagnoses Diagnosis Abdominal pain, unspecified abdominal location- Primary Constipation, unspecified constipation type documented in this encounter Care Teams Foreign Legal Consultant Relationship Specialty Start Date End Date Sarai Trejo MD [address] [place] [address] PCP - General Family Medicine 03/22/18 documented as of this encounter
--- OUTSIDE RECORDS SUMMARY | 2024-06-01 11:20 | XMS_ITS | Encounter Summary ---
Author Organization [facility] Address [address] [place] [address] Care Team Providers Care Manager Philosophy Name Role Phone John Paul Bass MD Primary Care Provider [phone] Encounter Details Date Type Department Care Team (Late st Contact Info) Description 02/14/2024 Lab Requisition [facility] - Main Lab [address] [facility] [place] [address] John Paul Bass MD [address] [place] [facility] 204 [facility] [address] Type 2 diabetes mellitus without complications (CMS/HCC) Social History Tobacco Use Types Packs/Day Years [...] Procedure Name Priority Date/Time Associated Diagnosis Comments COMPLETE BLOOD COUNT Routine 02/14/2024 6:29 AM EST Type 2 diabetes mellitus without complications (CMS/HCC) HEMOGLOBIN A1C Routine 02/14/2024 6:29 AM EST Type 2 diabetes mellitus without complications (CMS/HCC) COMPREHENSIVE METABOLIC PANEL Routine 02/14/2024 6:29 AM EST Type 2 diabetes mellitus without complications (CMS/HCC) documented in this encounter Results * (ABNORMAL) Hemoglobin A1c (02/14/2024 6:29 AM EST) Hemoglobin A1C 6.5(H) <6.5 % LAB CHEMISTRY METHOD 02/14/2024 1:59 PM [facility] Mean Bld Glu Estim. 140 mg/dL LAB CHEMISTRY METHOD 02/14/2024 1:59 PM [facility] Blood Venous blood specimen / Unknown Venipuncture / Unknown 02/14/2024 6:29 AM EST 02/14/2024 9:47 AM EST us John Paul Bass MD LAB BLOOD ORDERABLES Final Resul t [facility] [address] [place] [address], [place] [phone] * (ABNORMAL) Comprehensive metabolic panel (02/14/2024 6:29 AM EST) Sodium 140 133 - 145 mmol/L LAB CHEMISTRY METHOD 02/14/2024 12:08 PM [facility] Potassium 5.0 3.5 - 5.5 mmol/L LAB CHEMISTRY METHOD 02/14/2024 12:08 PM [facility] Chloride 104 96 - 110 mmol/L LAB CHEMISTRY METHOD 02/14/2024 12:08 PM [facility] CO2 30 21 - 32 mmol/L LAB CHEMISTRY METHOD 02/14/2024 12:08 PM [facility] Anion Gap 6 3 - 11 LAB CHEMISTRY METHOD 02/14/2024 12:08 PM [facility] Glucose 137(H) 70 - 100 mg/dL LAB CHEMISTRY METHOD 02/14/2024 12:08 PM [facility] BUN 37(H) 5 - 25 mg/dL LAB CHEMISTRY METHOD 02/14/2024 12:08 PM [facility] Creatinine 1.33(H) 0.50 - 1.10 mg/dL LAB CHEMISTRY METHOD 02/14/2024 12:08 PM [facility] eGFR 41(L) >=60 mL/min/1. 73m2 LAB CHEMISTRY METHOD 02/14/2024 12:08 PM [facility] Comment:Calculation based on the??Chronic Kidney Disease Epidemiology Collaboration (CKD-EPI) equation refit??without adjustment for race. BUN/Creatinine Ratio 27.8 LAB CHEMISTRY METHOD 02/14/2024 12:08 PM [facility] Calcium 9.8 8.5 - 10.5 mg/dL LAB CHEMISTRY METHOD 02/14/2024 12:08 PM [facility] AST (SGOT) 21 10 - 42 unit/L LAB CHEMISTRY METHOD 02/14/2024 12:08 PM [facility] ALT (SGPT) 11 10 - 60 unit/L LAB CHEMISTRY METHOD 02/14/2024 12:08 PM [facility] Alkaline Phosphatase 110 42 - 121 unit/L LAB CHEMISTRY METHOD 02/14/2024 12:08 PM [facility] Total Protein 6.7 6.0 - 8.0 g/dL LAB CHEMISTRY METHOD 02/14/2024 12:08 PM [facility] Albumin 2.8(L) 3.2 - 5.0 g/dL LAB CHEMISTRY METHOD 02/14/2024 12:08 PM [facility] Total Bilirubin 0.6 0.0 - 1.4 mg/dL LAB CHEMISTRY METHOD 02/14/2024 12:08 PM [facility] Blood Venous blood specimen / Unknown Venipuncture / Unknown 02/14/2024 6:29 AM EST 02/14/2024 9:47 AM EST us John Paul Bass MD LAB BLOOD ORDERABLES Final Resul t [facility] [address] [place] [address], * (ABNORMAL) Complete blood count (02/14/2024 6:29 AM EST) [facility] WBC 6.6 4.8 - 10.8 K/mcL LAB HEMETOLOGY METHOD 02/14/2024 10:40 AM [facility] RBC 4.60 3.80 - 4.80 M/mcL LAB HEMETOLOGY METHOD 02/14/2024 10:40 AM [facility] Hemoglobin 11.9 11.5 - 16.0 g/dL LAB HEMETOLOGY METHOD 02/14/2024 10:40 AM [facility] Hematocrit 41.5 35.0 - 47.0 % LAB HEMETOLOGY METHOD 02/14/2024 10:40 AM [facility] MCV 91.0 79.0 - 98.0 FL LAB HEMETOLOGY METHOD 02/14/2024 10:40 AM [facility] MCH 26.1(L) 27.0 - 32.0 pcg LAB HEMETOLOGY METHOD 02/14/2024 10:40 AM [facility] MCHC 28.7(L) 32.0 - 37.0 g/dL LAB HEMETOLOGY METHOD 02/14/2024 10:40 AM [facility] RDW 18.0(H) 11.0 - 15.0 % LAB HEMETOLOGY METHOD 02/14/2024 10:40 AM [facility] Platelets 309 130 - 400 K/mcL LAB HEMETOLOGY METHOD 02/14/2024 10:40 AM [facility] MPV 11.6(H) 7.0 - 11.0 FL LAB HEMETOLOGY METHOD 02/14/2024 10:40 AM [facility] NRBC 0.0 <1.0 % LAB HEMETOLOGY METHOD 02/14/2024 10:40 AM [facility] NRBC Absolute 0.00 <0.10 K/mcL LAB HEMETOLOGY METHOD 02/14/2024 10:40 AM EST [facility] Blood Venous blood specimen / Unknown Venipuncture / Unknown 02/14/2024 6:29 AM EST 02/14/2024 9:47 AM EST us John Paul Bass MD LAB BLOOD ORDERABLES Final Resul t [facility] [address] [place] [address], documented in this encounter Visit Diagnoses Diagnosis Type 2 diabetes mellitus without complications (CMS/HCC) documented in this encounter Care Teams Manager Philosophy Relationship Specialty Start Date End Date John Paul Bass MD [address] [place] [address], [phone] PCP - General Family Medicine 02/14/24 documented as of this encounter
--- OUTSIDE RECORDS SUMMARY | 2024-06-01 11:20 | XMS_ITS | Encounter Summary ---
Author Organization [employer] Address [address] [facility] 7t [place] [address] Care Team Providers Care Oracle Database Consultant Name Role Phone Sarai Trejo MD Primary Care Provider [phone] Reason for Visit * Reason Comments Med Refill Encounter Details Date Type Department Care Team (Late st Contact Info) Description 03/28/2023 Refill [facility] [address] [place], [place] [phone] Sarai Trejo MD [address] [place], [place] [phone] Pain Social History Tobacco Use Types Packs/Day Years [...] Description 06/05/2024 10:15 AM EDT Office Visit [facility] [address] [place] [address] Sarai Trejo MD [address] [place] [address] documented as of this encounter Goals Goal Patient Goal Type Associated Problems Recent Progress Patient-Stated? Author Blood Pressure < 140/90 Blood Pressure 129/70(2023 10:17 AM EST) No Yury Bee, PharmD Hemoglobin A1c < 7 Result Component Credit(2023 12:13 PM EST) No Yury Bee PharmD documented as of this encounter Visit Diagnoses Diagnosis Pain Generalized pain documented in this encounter Care Teams Oracle Database Consultant Relationship Specialty Start Date End Date Sarai Trejo MD [address] [place] [address] PCP - General Family Medicine 03/22/18 documented as of this encounter
--- OUTSIDE RECORDS SUMMARY | 2024-06-01 11:20 | XMS_ITS | Encounter Summary ---
Author Organization [employer] Address [address] [facility] 7t [place] [address] Care Team Providers Care Outreach Specialist Name Role Phone Sarai Trejo MD Primary Care Provider [phone] Reason for Visit * Reason Onset Date Comments Reschedule 03/17/2023 Encounter Details Date Type Department Care Team ([facility] st Contact Info) Description 03/17/[address] [facility] [address] [place], [place] [phone] Sarai Trejo MD [address] [place], [place] [phone] Reschedule Social History Tobacco Use Types Packs/Day [...] t he electric, gas, oil or water Clinical [employer] threatened to shut off services in your [...] * Telephone Encounter - Shawna Walls - 03/17/2023 2:43 PM EST Tc from pt requesting r/s appt with PCP , pt is requesting afternoon appt. documented in this encounter Plan of Treatment Upcoming Encounters Date Type Department Care Team (Late st Contact Info) Description 06/05/2024 10:15 AM EDT Office Visit [facility] MED[facility] [address] [place] [address] Sarai Trejo MD [address] [place] [address] documented as of this encounter Goals Goal Patient Goal Type Associated Problems Recent Progress Patient-Stated? Author Blood Pressure < 140/90 Blood Pressure 129/70(2023 10:17 AM EST) No Yury Bee, PharmD Hemoglobin A1c < 7 Result Component Credit(2023 12:13 PM EST) No Yury Bee, PharmD documented as of this encounter Visit Diagnoses Not on filedocumented in this encounter Care Teams Outreach Specialist Relationship Specialty Start Date End Date Sarai Trejo MD [address] [place] [address] PCP - General Family Medicine 03/22/18 documented as of this encounter
--- OUTSIDE RECORDS SUMMARY | 2024-06-01 11:20 | XMS_ITS | Encounter Summary ---
Author Organization [employer] Address [address] [facility] 7t [place] [address] Care Team Providers Care Knitter Wire Mesh Name Role Phone Sarai Trejo MD Primary Care Provider [phone] Encounter Details Date Type Department Care Team ([facility] st Contact Info) Description 01/14/2023 Orders Only [facility] MEDICINE [address] [place], [place] [phone] Kacie Rojas MD [address] [place], [place] [phone] Hypercalcemia (Primary Dx) Social History Tobacco Use Types Packs/Day Years [...] 10:15 AM EDT Office Visit [facility] MEDICINE [address] [place], [place] [phone] Sarai Trejo MD [address] [place], [place] [phone] Scheduled Orders Name Type Priority Associated Diagnoses Orde r Schedule Albumin Lab Routine Hypercalcemia Expected: 01/14/2023 (Approximate), Expires: 01/15/2024 Alkaline Phosphatase Lab Routine Hypercalcemia Expected: 01/14/2023, Expires: 01/15/2024 documented as of this encounter Goals Goal Patient Goal Type Associated Problems Recent Progress Patient-Stated? Author Blood Pressure < 140/90 Blood Pressure 129/70(2023 10:17 AM EST) No Yury Bee PharmD Hemoglobin A1c < 7 Result Component Credit(2023 12:13 PM EST) No Yury Bee PharmD documented as of this encounter Procedures Procedure Name Priority Date/Time Associated Diagnosis Comments VITAMIN D,25-OH,TOTAL,IA Routine 01/27/2023 11:57 AM EST Hypercalcemia PTH, INTACT WITHOUT CALCIUM Routine 01/27/2023 11:57 AM EST Hypercalcemia CALCIUM Routine 01/27/2023 11:57 AM EST Hypercalcemia HEPATIC FUNCTION PANEL Routine 01/27/2023 11:57 AM EST Hypercalcemia documented in this encounter Results * Hepatic Function Panel (01/27/2023 11:57 AM EST) Bilirubin, Total 0.8 0.0 - 1.0 mg/dL [facility] Bilirubin, Direct 0.2 0.0 - 0.5 mg/dL [facility] Aspartate Amino Transferase 29 5 - 31 U/L [facility] Alanine Aminotransferase 23 0 - 31 U/L [facility] Total Protein 8.0 6.5 - 8.0 g/dL [facility] Albumin Level 4.4 3.5 - 5.0 g/dL [facility] Alkaline Phosphatase 71 39 - 117 U/L [facility] Blood Venous blood specimen / Unknown 01/27/2023 11:57 AM EST 01/27/2023 11:59 AM EST Kacie Rojas MD LAB BLOOD ORDERABLES Final Result [facility] [address] [place] [phone] * Vitamin D, 25-Hydroxy, Total, Immunoassay (01/27/2023 11:57 AM EST) Vitamin D 25-OH Total 33.2 >30 ng/mL [facility] Comment:Health Based Referen ce Values*< 20 ng/mL Pogjjueud10-72 ng/mL Insufficient> 30 ng/mL Sufficient*Hanna GRANT. N Engl J Med. 2007;357:266-280Care must be taken in interpreting Vitamin D results fromdifferent laboratories and methodologies. Published datademonstrated that results from patients undergoinghemodialysis may show a negative bias when tested withvarious automated 25-OH vitamin D assays when compared toLC-MS/MS.When testing samples from patients whose predominant form ofVitamin D is Vitamin D2, such as patients receiving VitaminD2 supplementation, results that are subtherapeutic shouldbe confirmed with another method such as LC-MS/MS. Blood Venous blood specimen / Unknown 01/27/2023 11:57 AM EST 01/27/2023 11:59 AM EST Kacie Rojas MD LAB BLOOD ORDERABLES Final Result Performing Organization Address [facility] Co de Phone Number [facility] [address] [place] [phone] * (ABNORMAL) Calcium (01/27/2023 11:57 AM EST) Calcium 10.7(H) 8.4 - 10.2 mg/dL [facility] Blood Venous blood specimen / Unknown 01/27/2023 11:57 AM EST 01/27/2023 11:59 AM EST Kacie Rojas MD LAB BLOOD ORDERABLES Final Result Performing Organization Address [facility] Co de Phone Number [facility] [address] [place] [phone] * (ABNORMAL) PTH, Intact Without Calcium (01/27/2023 11:57 AM EST) PTHI 11(A) 16 - 77 pg/mL [facility] Comment:Interpretive Guide I ntact PTH Calcium -------Normal Parathyroid Normal NormalHypoparathyroidism Low or Low Normal LowHyperparathyroidism Primary Normal or High High Secondary High Normal or Low Tertiary High HighNon-Parathyroid Hypercalcemia Low or Low Normal High Calcium (PTHI) 10.7(A) 8.6 - 10.4 mg/dL [facility] Comment:THIS TEST WAS PERFOR MED AT:[facility] [place] [phone] ROSARIO MD Blood Venous blood specimen / Unknown 01/27/2023 11:57 AM EST 01/27/2023 11:59 AM EST Kacie Rojas MD LAB BLOOD ORDERABLES Final Result Performing Organization Address [facility] Co de Phone Number [facility] [address] [place] [phone] documented in this encounter Visit Diagnoses Diagnosis Hypercalcemia- Primary documented in this encounter Care Teams Knitter Wire Mesh Relationship Specialty Start Date End Date Sarai Trejo MD [address] [place] [address] PCP - General Family Medicine 03/22/18 documented as of this encounter
--- OUTSIDE RECORDS SUMMARY | 2024-06-01 11:20 | XMS_ITS | Encounter Summary ---
Author Organization [employer] Address [address] [facility] 7t [place] [address] Care Team Providers Care Acid Splicer Name Role Phone Sarai Trejo MD Primary Care Provider Encounter Details Date Type Department Care Team ([facility] st Contact Info) Description 02/26/2023 Orders Only [facility]INE [address] [place], [place] [phone] Sarai Trejo MD [address] [place], [place] [phone] Social History Tobacco Use Types Packs/Day Years [...] Description 06/05/2024 10:15 AM EDT Office Visit [facility] [address] [place] [address] Sarai Trejo MD [address] [place] [phone] documented as of this encounter Goals Goal Patient Goal Type Associated Problems Recent Progress Patient-Stated? Author Blood Pressure < 140/90 Blood Pressure 129/70(2023 10:17 AM EST) No Yury Bee PharmD Hemoglobin A1c < 7 Result Component Credit(2023 12:13 PM EST) No Yury Bee PharmD documented as of this encounter Visit Diagnoses Not on filedocumented in this encounter Care Teams Acid Splicer Relationship Specialty Start Date End Date Sarai Trejo MD [address] [place] [phone] PCP - General Family Medicine 03/22/18 documented as of this encounter
--- OUTSIDE RECORDS SUMMARY | 2024-06-01 11:20 | XMS_ITS | Encounter Summary ---
Author Organization [facility] Address [address] [facility] 7t [place] [address] Care Team Providers Care It Operations Specialist Name Role Phone Sarai Trejo MD Primary Care Provider [phone] Reason for Visit * Reason Comments Med Refill Encounter Details Date Type Department Care Team (Late st Contact Info) Description 12/03/[address] 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
--- OUTSIDE RECORDS SUMMARY | 2024-06-01 11:20 | XMS_ITS | Encounter Summary ---
Author Organization [facility] Address [address] [place] [address] Care Team Providers Care Caustic Liquor Maker Name Role Phone John Paul Bass MD Primary Care Provider [phone] Encounter Details Date Type Department Care Team (Late st Contact Info) Description 02/26/2024 Lab Requisition [facility] - Main Lab [address] [place] [address] John Paul Bass MD [address] [facility] 204 [facility] [phone] Chronic kidney disease, unspecified; Anemia, unspecified Social [...] Associated Diagnosis Comments COMPLETE BLOOD COUNT Routine 02/28/2024 5:23 AM EST Chronic kidney disease, unspecified Anemia, unspecified BASIC METABOLIC PANEL Routine 02/28/2024 5:23 AM EST Chronic kidney disease, unspecified Anemia, unspecified documented in this encounter Results * (ABNORMAL) Basic metabolic panel (02/28/2024 5:23 AM EST) Sodium 139 133 - 145 mmol/L LAB CHEMISTRY METHOD 02/28/2024 10:[address] [facility]) [facility] Potassium 4.5 3.5 - 5.5 mmol/L LAB CHEMISTRY METHOD 02/28/2024 10:07 AM [facility] Chloride 102 96 - 110 mmol/L LAB CHEMISTRY METHOD 02/28/2024 10:07 AM [facility] CO2 31 21 - 32 mmol/L LAB CHEMISTRY METHOD 02/28/2024 10:07 AM [facility] Anion Gap 6 3 - 11 LAB CHEMISTRY METHOD 02/28/2024 10:07 AM [facility] Glucose 230(H) 70 - 100 mg/dL LAB CHEMISTRY METHOD 02/28/2024 10:07 AM [facility] BUN 53(H) 5 - 25 mg/dL LAB CHEMISTRY METHOD 02/28/2024 10:07 AM [facility] Creatinine 1.69(H) 0.50 - 1.10 mg/dL LAB CHEMISTRY METHOD 02/28/2024 10:07 AM [facility] eGFR 31(L) >=60 mL/min/1. 73m2 LAB CHEMISTRY METHOD 02/28/2024 10:07 AM [facility] Comment:Calculation based on the??Chronic Kidney Disease Epidemiology Collaboration (CKD-EPI) equation refit??without adjustment for race. BUN/Creatinine Ratio 31.4 LAB CHEMISTRY METHOD 02/28/2024 10:07 AM [facility] Calcium 9.6 8.5 - 10.5 mg/dL LAB CHEMISTRY METHOD 02/28/2024 10:07 AM [facility] Blood Venous blood specimen / Unknown Venipuncture / Unknown 02/28/2024 5:23 AM EST 02/28/2024 9:12 AM EST us John Paul Bass MD LAB BLOOD ORDERABLES Final Resul t [facility] [address] [place] [address], * (ABNORMAL) Complete blood count (02/28/2024 5:23 AM EST) [facility] WBC 6.2 4.8 - 10.8 K/mcL LAB HEMETOLOGY METHOD 02/28/2024 9:43 AM [facility] RBC 4.50 3.80 - 4.80 M/mcL LAB HEMETOLOGY METHOD 02/28/2024 9:43 AM [facility] Hemoglobin 11.8 11.5 - 16.0 g/dL LAB HEMETOLOGY METHOD 02/28/2024 9:43 AM [facility] Hematocrit 40.5 35.0 - 47.0 % LAB HEMETOLOGY METHOD 02/28/2024 9:43 AM [facility] MCV 89.2 79.0 - 98.0 FL LAB HEMETOLOGY METHOD 02/28/2024 9:43 AM [facility] MCH 26.0(L) 27.0 - 32.0 pcg LAB HEMETOLOGY METHOD 02/28/2024 9:43 AM [facility] MCHC 29.1(L) 32.0 - 37.0 g/dL LAB HEMETOLOGY METHOD 02/28/2024 9:43 AM [facility] RDW 16.7(H) 11.0 - 15.0 % LAB HEMETOLOGY METHOD 02/28/2024 9:43 AM [facility] Platelets 273 130 - 400 K/mcL LAB HEMETOLOGY METHOD 02/28/2024 9:43 AM [facility] MPV 12.3(H) 7.0 - 11.0 FL LAB HEMETOLOGY METHOD 02/28/2024 9:43 AM [facility] NRBC 0.0 <1.0 % LAB HEMETOLOGY METHOD 02/28/2024 9:43 AM [facility] NRBC Absolute 0.00 <0.10 K/mcL LAB HEMETOLOGY METHOD 02/28/2024 9:43 AM EST [facility] Blood Venous blood specimen / Unknown Venipuncture / Unknown 02/28/2024 5:23 AM EST 02/28/2024 9:14 AM EST us John Paul Bass MD LAB BLOOD ORDERABLES Final Resul t [facility] [address] [place] [address], documented in this encounter Visit Diagnoses Diagnosis Chronic kidney disease, unspecified Anemia, unspecified documented in this encounter Care Teams Caustic Liquor Maker Relationship Specialty Start Date End Date John Paul Bass MD [address] [place] [phone] PCP - General Family Medicine 02/14/24 documented as of this encounter
--- OUTSIDE RECORDS SUMMARY | 2024-06-01 11:20 | XMS_ITS ---
Author Organization [facility] Address [address] [place] [address] Care Team Providers Care Title Manager Name Role Phone Neil DOTY, Sarai Primary Care Provider Sergey Mathews [phone] REASON FOR VISIT patches Encounters Encounter Location Date Provider Diagnosis [facility] [address] [place] [address] 03/30/2023 Sergey Hernandez Plan Of Treatment No Information Progress Notes * JAYLEN RONDON IDOB:[birth year] (77 yo F)Acc No.[id number]:03/30/2023 Patient:?JAYLEN RONDON I :1945???Age:77 Y???Sex:Female Address:[address] [place] [address] * true * Date:? Generated for Uriel goddard/Val/eTransmitting on:?06/01/2024 11:20 AM EDT
--- OUTSIDE RECORDS SUMMARY | 2024-06-01 11:20 | XMS_ITS | Encounter Summary ---
Author Organization [facility] Address [address] [place] [address] Care Team Providers Care Debrander Name Role Phone John Paul Bass MD Primary Care Provider [phone] Encounter Details Date Type Department Care Team (Late st Contact Info) Description 02/18/2024 Lab Requisition [facility] - Main Lab [address] [place] [address] John Paul Bass MD 38 [facility] 204 [facility] [address] Chronic kidney disease, unspecified; Anemia, [...] Associated Diagnosis Comments COMPLETE BLOOD COUNT Routine 02/21/2024 4:55 AM EST Chronic kidney disease, unspecified Anemia, unspecified BASIC METABOLIC PANEL Routine 02/21/2024 4:55 AM EST Chronic kidney disease, unspecified Anemia, unspecified documented in this encounter Results * (ABNORMAL) Basic metabolic panel (02/21/2024 4:55 AM EST) Sodium 138 133 - 145 mmol/L LAB CHEMISTRY METHOD 02/21/2024 9:18 AM EST [facility] Potassium 4.5 3.5 - 5.5 mmol/L LAB CHEMISTRY METHOD 02/21/2024 9:18 AM [facility] Chloride 103 96 - 110 mmol/L LAB CHEMISTRY METHOD 02/21/2024 9:18 AM [facility] CO2 30 21 - 32 mmol/L LAB CHEMISTRY METHOD 02/21/2024 9:18 AM [facility] Anion Gap 5 3 - 11 LAB CHEMISTRY METHOD 02/21/2024 9:18 AM [facility] Glucose 235(H) 70 - 100 mg/dL LAB CHEMISTRY METHOD 02/21/2024 9:18 AM [facility] BUN 57(H) 5 - 25 mg/dL LAB CHEMISTRY METHOD 02/21/2024 9:18 AM [facility] Creatinine 1.66(H) 0.50 - 1.10 mg/dL LAB CHEMISTRY METHOD 02/21/2024 9:18 AM [facility] eGFR 31(L) >=60 mL/min/1. 73m2 LAB CHEMISTRY METHOD 02/21/2024 9:18 AM [facility] Comment:Calculation based on the??Chronic Kidney Disease Epidemiology Collaboration (CKD-EPI) equation refit??without adjustment for race. BUN/Creatinine Ratio 34.3 LAB CHEMISTRY METHOD 02/21/2024 9:18 AM [facility] Calcium 9.2 8.5 - 10.5 mg/dL LAB CHEMISTRY METHOD 02/21/2024 9:18 AM [facility] Blood Venous blood specimen / Unknown Venipuncture / Unknown 02/21/2024 4:55 AM EST 02/21/2024 8:09 AM EST us John Paul Bass MD LAB BLOOD ORDERABLES Final Resul t [facility] [address] [place] [address], * (ABNORMAL) Complete blood count (02/21/2024 4:55 AM EST) [facility] WBC 5.9 4.8 - 10.8 K/mcL LAB HEMETOLOGY METHOD 02/21/2024 8:34 AM [facility] RBC 4.20 3.80 - 4.80 M/mcL LAB HEMETOLOGY METHOD 02/21/2024 8:34 AM [facility] Hemoglobin 11.0(L) 11.5 - 16.0 g/dL LAB HEMETOLOGY METHOD 02/21/2024 8:34 AM [facility] Hematocrit 38.0 35.0 - 47.0 % LAB HEMETOLOGY METHOD 02/21/2024 8:34 AM [facility] MCV 90.7 79.0 - 98.0 FL LAB HEMETOLOGY METHOD 02/21/2024 8:34 AM [facility] MCH 26.3(L) 27.0 - 32.0 pcg LAB HEMETOLOGY METHOD 02/21/2024 8:34 AM [facility] MCHC 28.9(L) 32.0 - 37.0 g/dL LAB HEMETOLOGY METHOD 02/21/2024 8:34 AM [facility] RDW 17.4(H) 11.0 - 15.0 % LAB HEMETOLOGY METHOD 02/21/2024 8:34 AM [facility] Platelets 305 130 - 400 K/mcL LAB HEMETOLOGY METHOD 02/21/2024 8:34 AM [facility] MPV 11.5(H) 7.0 - 11.0 FL LAB HEMETOLOGY METHOD 02/21/2024 8:34 AM [facility] NRBC 0.0 <1.0 % LAB HEMETOLOGY METHOD 02/21/2024 8:34 AM [facility] NRBC Absolute 0.00 <0.10 K/mcL LAB HEMETOLOGY METHOD 02/21/2024 8:34 AM EST [facility] Blood Venous blood specimen / Unknown Venipuncture / Unknown 02/21/2024 4:55 AM EST 02/21/2024 8:09 AM EST us John Paul Bass MD LAB BLOOD ORDERABLES Final Resul t [facility] [address] [place] [address], documented in this encounter Visit Diagnoses Diagnosis Chronic kidney disease, unspecified Anemia, unspecified documented in this encounter Care Teams Debrander Relationship Specialty Start Date End Date John Paul Bass MD [address] [place] [address], [phone] PCP - General Family Medicine 02/14/24 documented as of this encounter
--- OUTSIDE RECORDS SUMMARY | 2024-06-01 11:20 | XMS_ITS | Encounter Summary ---
Author Organization [facility] Address [address] [facility] [address]t [place] [address] Care Team Providers Care Mcat Tutor Name Role Phone Sarai Trejo MD Primary Care Provider [phone] Encounter Details Date Type Department Care Team ([facility] st Contact Info) Description 01/29/2023 Orders Only [facility] [address] [place], [place] [phone] Yoli Pardo MD [address] [place], [place] [phone] Social History Tobacco Use Types Packs/Day Years [...] 06/05/2024 10:15 AM EDT Office Visit [facility] [address] [place] [address] Sarai Trejo MD [address] [place] [address] documented as of this encounter Goals Goal Patient Goal Type Associated Problems Recent Progress Patient-Stated? Author Blood Pressure < 140/90 Blood Pressure 129/70(2023 10:17 AM EST) No Yury Bee PharmD Hemoglobin A1c < 7 Result Component Credit(2023 12:13 PM EST) No Yury Bee PharmD documented as of this encounter Visit Diagnoses Not on filedocumented in this encounter Care Teams Mcat Tutor Relationship Specialty Start Date End Date Sarai Trejo MD [address] [place] [phone] PCP - General Family Medicine 03/22/18 documented as of this encounter
--- OUTSIDE RECORDS SUMMARY | 2024-06-01 11:20 | XMS_ITS | Encounter Summary ---
Author Organization [facility] Address [address] [facility] 7[address] [place] [address] Care Team Providers Care Machine Grinder Name Role Phone Sarai Trejo MD Primary Care Provider [phone] Reason for Visit * Reason Comments Med Refill Encounter Details Date Type Department Care Team (Late st Contact Info) Description 05/25/2024 Refill [facility] [address] [place], [place] [phone] Sarai Trejo MD [address] [place], [place] [phone] Pain Social History Tobacco Use Types Packs/Day [...] Description 06/05/2024 10:15 AM EDT Office Visit [facility] [address] [place] [phone] Sarai Trejo MD [address] [place] [address] documented as of this encounter Goals Goal Patient Goal Type Associated Problems Recent Progress Patient-Stated? Author Blood Pressure < 140/90 Blood Pressure 129/70(2023 10:17 AM EST) No Yury Bee PharmD Hemoglobin A1c < 7 Result Component Credit(2023 12:13 PM EST) No Yury Bee PharmD documented as of this encounter Visit Diagnoses Diagnosis Pain Generalized pain documented in this encounter Additional Health Concerns Assessment Noted Time PHQ-9 Depression Total Score: 0 08/12/19 24 11:13 AM EDT documented as of this encounter Care Teams Machine Grinder Relationship Specialty Start Date End Date Sarai Trejo MD [address] [place] [phone] PCP - General Family Medicine 03/22/18 documented as of this encounter
--- OUTSIDE RECORDS SUMMARY | 2024-06-01 11:20 | XMS_ITS | Encounter Summary ---
Author Organization [facility] [facility] Address [address] [facility] [address] h [address] [address] Care Team Providers Care Auto Parts Salesperson Name Role Phone Sarai Trejo MD Primary Care Provider [phone] Encounter Details Date Type Department Care Team ([facility] st Contact Info) Description 12/31/2022 Orders Only [facility] [address] [place], [place] [phone] Sarai Trejo MD [address] [place], [place] [phone] Osteoporosis without current pathological fracture, unspecified osteoporosis type (Primary Dx) Social History Tobacco Use Types [...] Description 06/05/2024 10:15 AM EDT Office Visit [facility] [address] [place] [phone] Sarai Trejo MD [address] [place] [address] documented as of this encounter Visit Diagnoses Diagnosis Osteoporosis without current pathological fracture, unspecified osteoporosis type- Primary documented in this encounter Care Teams Auto Parts Salesperson Relationship Specialty Start Date End Date Sarai Trejo MD [address] [place] [address] PCP - General Family Medicine 03/22/18 documented as of this encounter
--- OUTSIDE RECORDS SUMMARY | 2024-06-01 11:20 | XMS_ITS | Encounter Summary ---
Author Organization [facility], Address [address] [place] [address] Phone Care Team Providers Care Parole Agent Name Role Phone Abhishek Vergara MD Primary Care Provider [phone] Encounter Details Date Type Department Care Team (Late st Contact Info) Description 05/31/2024 Telephone [facility] - [address] [place] [address] Dunia Butler, JACQUE [address] [place] [address] [place] [phone] Social History Tobacco Use Types Packs/Day Years [...] on file documented as of this encounter Miscellaneous Notes * Telephone Encounter - Dunia Butler RN - 05/31/2024 12:41 PM EDT I spoke with pt on 05/21/24 and reminded her to get her blood drawn because labs are over-due. Pt told me she would go to lab on 05/25/24. Pt has not gone to lab as of today. I called her, but no answer and unable to leave message because mail box full. documented in this encounter Plan of Treatment Not on file documented as of this encounter Visit Diagnoses Not on filedocumented in this encounter Care Teams Parole Agent Relationship Specialty Start Date End Date Abhishek Vergara MD [address] [place] [address] PCP - General 04/01/20 documented as of this encounter
--- OUTSIDE RECORDS SUMMARY | 2024-06-01 11:20 | XMS_ITS | Patient Health Record ---
Author Organization [facility] Address [address] [place] [address] Care Team Providers Care School Leader Name Role Phone Neil DOTY, Sarai Primary Care Provider Sergey Mathews [facility] [phone] Allergies No Known Allergies Reason For Referral No Information Medications Medication SIG (Take, Route, Frequency, Duration) Notes Start Date End Date Status Montelukast Sodium 10 MG 1 tablet in the evening Orally Once a day Active Aspir-81 81 MG 1 tablet Orally Once a day Active Multi Vitamin/Minerals - as directed Ora lly once a day Active SM Anti-Diarrheal 2 MG renaldo 2 tabletas con la primera escreta blanda y renaldo 1 tableta despues de cada movimiento instestinal. no renaldo mas de 8 tabletas en 24 ho Oral for 3 Active Flovent HFA 220 MCG/ACT 1 puff Inhalatio n Twice a day PRN Active amLODIPine Besylate 2.5 MG 1 tablet Oral ly Once a day for 30 day(s) Active Magnesium Oxide 400 MG TAKE 1 TABLET BY MOUTH TWICE DAILY Oral for 15 Active metFORMIN HCl 1000 MG 1 tablet with meal s Orally Twice a day Active Cholestyramine Activ e Metoprolol Tartrate 25 MG 1 tablet with food Orally Twice a day for 30 day(s) Active Atorvastatin Calcium 40 MG 1 tablet Oral ly Once a day Active Lidoderm 5 % 1 patch on the right upper abdomen for the pain and then remove after 12 hours Externally Once a day for 30 days 03/25/2023 Active Levothyroxine Sodium 88 MCG 1 tablet Ora lly Once a day Active Immunizations Vaccine Route Administration Date Status Comme nts Influenza Unknown 01/20/2018 Administered Influenza Unknown 12/20/2018 Administered Influenza Unknown 01/03/2020 Administered Problems Problem Type SNOMED Code ICD Code Onset Dates Problem Status W/U Status Risk Notes Problem Irritable bowel syndrome (76657441) Irritable bowel syndrome (K58.9) Active confirmed Problem Screening for malignant neoplasm of colon (873144217) Encounter for screening for malignant neoplasm of colon (Z12.11) Active confirmed Problem 77967055 Irritable bowel syndrome without diarrhea (K58.9) Active confirmed Problem Family History of Cancer of Colon (Situation) (284323073) Family history of colon cancer (Z80.0) Active confirmed Problem 494789336 Abdominal pain, right upper quadrant (R10.11) Active confirmed Problem 273668860 Abnormal CT of the abdomen (R93.5) Active confirmed Problem 46769591 Irritable bowel syndrome with both constipation and diarrhea (K58.2) Active confirmed Problem 060893492 RUQ pain (R10.11) Active confirmed Problem 530970669 Acute biliary pancreatitis without infection or necrosis (K85.10) Active confirmed Problem 784402466 Abdominal wall pain in right upper quadrant (R10.11) Active confirmed Plan Of Treatment Pending Test Test Name Order Date BUN 03/27/2015 CREATININE 03/27/2015 LIVER PROFILE 03/27/2015 Future Test Test Name Order Date COLONOSCOPY 07/10/2014 COLONOSCOPY 04/17/2020 Insurance Providers Payer Name Payer Address Payer Phone Subscriber Number Group Number Insured Name Patient Relationship to Insured Coverage Start Date Coverage End Date [facility] [address] [address] [place] [address] [id number] JAYLEN RONDON Self - patient is the insured Medical (General) History Medical History History ICD Code Colonoscopies in 2003 and --both negative for polyps-did have diverticulosis and hemorrhoids Osteoporosis Back pain Depression Denies IA,CVA,renal disease COPD NIDDM Neuropathy GERD Hypothroidism Negative colonoscopy in September 2014, other than some sigmoid diverticulosis and internal hemorrhoids Abnormal CAT scan of her nuris st and abdomen in January and February of 2015, with the finding of a subdiaphragmatic lesion above the liver capsule--however, it was not felt to be related to a primary liver lesion nor liver disease Chronic sinusitis Pancreatitis in 10/2015--? passed CBD sto ne--MRCP was negative Aneurysm - 2006 IBS with intermittent diarrh ea as of the 03/2020 office visit, although in the past has had issues with constipation Negative colonoscopy in 04/2020--biopsies negative for mcroscopic colitis Chronic right upper quadrant pain with negative MRCP's in the past in regard to choledocholithiasis; negative CT scan, ultrasound, and laboratories in February of 2023 during an ER visit Surgical History Surgery Date(Month/Year) brain aneurysm 2006 left knee replacement-2013 right knee replacement shoulder surgery oral surgery-implants cholecystectomy-Dr. Saunders Hemorrhoids in 2011-Dr. Decker Bladder stimulator from Dr. Perez, III
== END 2024-06-01 10:00 | disposition home or self-care (01) ==
LOC: HO.HPS 09:32
PROVIDERS: PCP Family Medicine; Visit Provider Internal Medicine
DX: J44.9 Chronic obstructive pulmonary disease, unspecified (principal); J98.4 Other disorders of lung; J30.9 Allergic rhinitis, unspecified
CPT/HCPCS: 99213

== ENCOUNTER → 2024-06-01 09:32 | Outpatient (BNVA) | payer OTHER, SELFPAY | PROVIDERS: PCP Family Medicine; Visit Provider Internal Medicine | DX: J44.9 Chronic obstructive pulmonary disease, unspecified (principal); J98.4 Other disorders of lung; J30.9 Allergic rhinitis, unspecified | CPT/HCPCS: 99212 ==

== ENCOUNTER 2024-06-12 09:00 | Outpatient (AMB) | payer OTHER, SELFPAY ==
--- NOTE | 2024-06-12 09:26 | MHC.OFFVIS ---
Vital Signs 06/12/24 09:30 Height 5 ft 3 in Weight 162 lb 4.163 oz BMI 28.7 BP 124/62 Blood Pressure Location Lt brachial Position Sitting Pulse 74 Pulse Source Monitor Intake Visit Reasons: 4 mth f/up Intake Note: 4 mth f/up Profiling Machine Setup Operator Required: No Accompanied by: Self / Same As Patient Allergies white fish Allergy (Intermediate, Uncoded 06/01/24 09:59) body swelling, redness Medication List - Last Reconciled 06/12/24 by Ian He MD acetaminophen 1,000 mg PO Q8H PRN albuterol sulfate 1 amp inhalation Q4-6H PRN albuterol sulfate 90 mcg/actuation (ProAir HFA) 2 puffs inhalation Q4-6H PRN amlodipine 5 mg PO QAM aspirin 81 mg PO DAILY atorvastatin 40 mg PO BEDTIME blood sugar diagnostic ([employer] Ultra Test strips) As directed cetirizine 5 mg PO QAM fluticasone propion-salmeterol 250-50 mcg/dose 1 ea PO BID lancets ([employer] Delica Plus Lancet) As directed levothyroxine 88 mcg PO DAILY@0600 magnesium oxide 400 mg PO Q OTHER DAY metformin ER 1,000 mg PO BID@1300,1900 metoprolol tartrate 25 mg PO BID 90 days montelukast 10 mg PO BEDTIME multivitamin (Multiple Vitamins tablet) 1 tab PO DAILY pantoprazole 40 mg PO DAILY piroxicam 10 - 20 mg PO QAM repaglinide 3 mg PO TID sennosides (senna) 8.6 mg PO BID PRN HPI Comments Details: 78-year-old female was referred to us for question cardiomyopathy. There is no echocardiography a previous records available currently. She has background history of diabetes, hypertension, bronchial asthma/COPD and history of of cerebral aneurysm. She noticed sudden episode of sweating and noticed her blood pressure be elevated at 150 systolic. She had no chest discomfort shortness of breath. She said this episode improved and next blood pressure was better. She is denying any chest discomfort or significant shortness of breath otherwise. She has been following with Dr. Terrell closely and has been stable. Blood pressure in the office is good. Overall no obvious concerns or symptoms today. She was referred for echocardiography and Holter monitoring. Both were normal. She returns and is feeling good. She is complaining of varicose veins on both legs. 11/09/2022: She returns for follow-up. She is complaining of dyspnea on exertion. She has known COPD and bronchial asthma. Blood pressure is mildly elevated. She is taking amlodipine 2.5 mg once a day and metoprolol tartrate 25 mg twice a day. No chest discomfort. EKG showing left bundle-branch block. 07/19/23: She returns for follow-up. He had echocardiography performed for left bundle-branch block which showed normal biventricular function. On follow-up she is complaining of some sharp left-sided chest pains which have been off and on with activity and at rest. She also gets some shortness of breath when these symptoms happen. She has not had any chest discomfort before. Blood pressure is normal in the office but at home she has readings of 160s systolic. 01/26/24: Here for f/u. She is frail and has been walking with walker. She is reporting surgery for aortic aneurysm. Will get records. Echo was normal. Lexiscan previously was normal. 06/12/24: She is here for follow-up. She is saying she has been getting more short of breath with activities. Not coughing up any phlegm. No fevers or chills. She is saying asthma control is okay and she has been seeing her instructional technologist regularly. Denying any orthopnea or PND. We did a chest x-ray today. By my read she has central congestion and signs of heart failure. We will wait for official report of the chest x-ray. [facility] Medical History COPD (chronic obstructive pulmonary disease) Allergic rhinitis Venous insufficiency Hx of cardiomyopathy LBBB (left bundle branch block) Urge incontinence Brain aneurysm Back pain Restrictive airway disease Bronchial asthma Hemorrhoids Arthritis Depression Hypothyroidism Migraine headache Asthma Cubital tunnel syndrome Abdominal hyperesthesia Altered bowel habits Dyspepsia Gallstone pancreatitis Calculus of gallbladder Lipoma of other skin and subcutaneous tissue Hyperlipidemia DM II (diabetes mellitus, type II), controlled Rotator cuff tear arthropathy of right shoulder Subacromial impingement Subacromial bursitis Surgical History History of cardiac catheterization Hx of colonoscopy H/O craniotomy S/P surgical manipulation of knee joint History of shoulder surgery History of total right knee replacement History of total left knee replacement Family History Son Hypertension Brother Colon cancer Social History Household Members: None Housing: Apartment Are you a primary career technical supervisor to a significant other at home: No Do you presently have visiting nurse or other home services: Yes Alcohol intake: never Patient Tobacco Use Status: Former Tobacco user Tobacco use type: Cigarette service: No Current occupational status: disabled Review of Systems Const Denies chills, Reports fatigue, Denies fever(s), Reports frequent falls, Reports headache(s), Reports weakness, Denies weight gain and Denies weight loss ENT Denies dizziness and Reports headache(s) Card Denies chest pain, Denies leg edema, Reports lightheadedness, Denies palpitations, Reports dyspnea and Denies dyspnea on exertion Resp Denies cough, Reports dyspnea and Denies dyspnea on exertion GI Denies hematochezia Musc Denies abnormal gait, Denies muscle weakness, Denies numbness, Denies radiating pain into limb and Denies tingling Neuro Denies abnormal gait, Denies dizziness, Reports frequent falls, Reports headache(s), Denies numbness, Denies tingling and Reports weakness Endo Reports fatigue and Denies palpitations Physical Exam Vital Signs: Last Vital Signs Pulse 74 06/12/24 09:30 BP 124/62 06/12/24 09:30 BMI result Body Mass Index 28.7 GENERAL APPEARANCE: in no acute distress, pleasant. NECK: no carotid bruit, no jugular venous distention. SKIN: no suspicious lesions, warm and dry. HEART: no murmurs, regular rate and rhythm. LUNGS: Crackles left more than right base. ABDOMEN: soft, nontender. EXTREMITIES: no edema. Varicose veins. PERIPHERAL PULSES: equal. NEUROLOGIC: No gross deficits, AAO X 3 Office Procedures EKG Details: Sinus rhythm 74 beats per minute, left bundle-branch block with QRS interval 148 milliseconds, QTC 444 milliseconds. [id number], Complete Assessment & Plan Assessment & Plan (1) Dyspnea: Code(s): R06.00 - Dyspnea, unspecified Category: Medical (2) LBBB (left bundle branch block): Code(s): I44.7 - Left bundle-branch block, unspecified Category: Medical (3) Essential hypertension: Code(s): I10 - Essential (primary) hypertension Category: Medical Plan Pleasant 78-year-old lady who is here for follow-up. She has background history of asthma and chronic left bundle-branch block. Echocardiography has shown normal LVEF. She is complaining of shortness of breath which is more progressive than before. She is denying any orthopnea or PND. By exam she does not have any significant JVD but does have bilateral crackles. Chest x-ray is showing central congestion. I am starting her on 40 mg p.o. Lasix. We will arrange follow-up in few weeks. Thank you for allowing me to participate in the care of your patient. Please feel free to contact me if you have any questions. Orders: Orders XR chest 2V Today R06.00 - Dyspnea, unspecified Medications: New furosemide (Lasix) 40 mg PO DAILY 60 tabs 3RF Coding Level of Care Code Est Pt Level 4 (68351) Diagnoses Dyspnea R06.00 LBBB (left bundle branch block) I44.7 Essential hypertension I10 CPT Codes EKG - CPT: 46191-[id number], Complete ([id number])
[2024-06-12 09:30] VITALS: BP 124/62; PULSE 74; BMI 28.7
== END 2024-06-12 10:03 | disposition home or self-care (01) ==
LOC: HO.HCS 09:01
PROVIDERS: PCP Family Medicine; Visit Provider Internal Medicine Cardiovascular Disease
DX: R06.00 Dyspnea, unspecified (principal); I44.7 Left bundle-branch block, unspecified; I10 Essential (primary) hypertension
CPT/HCPCS: 93010; 99214

== ENCOUNTER 2024-06-12 09:00 | Outpatient (REF) | payer OTHER, SELFPAY ==
--- NOTE | ~2024-06-12 | XR_ITS ---
EXAMINATION: XR CHEST 2 VIEWS HISTORY: R06.00 - Dyspnea, unspecified COMPARISON: Comparison is made with the prior examination dated 05/26/2023. FINDINGS: PA and lateral views of the chest are submitted. There is prominence of the pulmonary vasculature, consistent with congestion. There is no pleural effusion or pneumothorax. The heart remains enlarged. There is dextroscoliosis and degenerative disc disease of the spine. XR/XR chest 2V IMPRESSION: Cardiomegaly and pulmonary vascular congestion. Electronically signed by: Sergey Olson MD 06/12/2024 03:55 PM EDT
== END 2024-06-12 09:01 | disposition home or self-care (01) ==
LOC: HO.XRAY 09:00
PROVIDERS: PCP Family Medicine; Visit Provider Internal Medicine Cardiovascular Disease
DX: R06.00 Dyspnea, unspecified (principal); I44.7 Left bundle-branch block, unspecified; I10 Essential (primary) hypertension
CPT/HCPCS: 71046; 93005; 99212

== ENCOUNTER → 2024-06-12 10:17 | Outpatient (BNV) | payer OTHER, SELFPAY | PROVIDERS: PCP Family Medicine; Visit Provider Radiology Diagnostic Radiology | DX: I51.7 Cardiomegaly (principal) | CPT/HCPCS: 71046 ==

== ENCOUNTER 2024-07-17 08:31 | Outpatient (AMB) | payer OTHER, SELFPAY ==
--- OUTSIDE RECORDS SUMMARY | 2024-07-17 08:57 | XMS_ITS | Encounter Summary ---
Author Organization [employer] Address [address] [facility] 7t [place] [address] Care Team Providers Care Cart Driver Name Role Phone Sarai Trejo MD Primary Care Provider [phone] Reason for Visit * Reason Onset Date Comments PT1 08/20/2023 Encounter Details Date Type Department Care Team ([facility] st Contact Info) Description 08/20/2023 Telephone [facility] MEDICINE [address] [place], [place] [phone] Sarai Trejo MD [address] [place], [place] [phone] PT1 Social History Tobacco Use Types Packs/Day [...] Y/N: Yes Provider name or facility name: [facility] Address: [address] [place] [address] Escort needed: Y/N: No Do you have a wheelchair: Y/N: No If yes- Manual or electric: Visits: 3-4 times a month Pt has an appt for 08/26/23 @1PM documented in this encounter Plan of Treatment Upcoming Encounters Date Type Department Care Team ([facility] st Contact Info) Description 09/21/2024 10:15 AM EDT Office Visit [facility] MEDICINE [address] [place] [address] Sarai Trejo MD [address] [place] [address] documented as of this encounter Goals Goal Patient Goal Type Associated Problems Recent Progress Patient-Stated? Author Blood Pressure < 140/90 Blood Pressure 115/70(2024 10:06 AM EDT) No Yury Bee PharmD Hemoglobin A1c < 7 Result Component 7.7( 10:10 AM EDT) No Yury Bee PharmD documented as of this encounter Visit Diagnoses Not on filedocumented in this encounter Additional Health Concerns Assessment Noted Time PHQ-9 Depression Total Score: 0 08/12/19 24 11:13 AM EDT documented as of this encounter Care Teams Cart Driver Relationship Specialty Start Date End Date Sarai Trejo MD [address] [place] [address] PCP - General Family Medicine 03/22/18 documented as of this encounter
--- OUTSIDE RECORDS SUMMARY | 2024-07-17 08:57 | XMS_ITS | Encounter Summary ---
Author Organization [employer] Address 75 [facility] 7t [place] [address] Care Team Providers Care Screen Printing Supervisor Name Role Phone Sarai Trejo MD Primary Care Provider [phone] Reason for Visit * Reason Onset Date Comments Med Refill 05/17/2023 Encounter Details Date Type Department Care Team ([facility] st Contact Info) Description 05/17/2023 Telephone [facility] MEDICINE [address] [place], [place] [phone] Sarai Trejo MD [address] [place], [place] [phone] Med Refill Social History Tobacco Use Types [...] t he electric, gas, oil or water [employer] [employer] threatened to shut off services in your [...] 11:33 AM EST Magnesium was sent to [facility] on 04/20/23 #45 with 1 [...] 500 MG tablet To be sent to: [facility] - [place], [place] - [address] [place] [address] documented in this encounter Plan of Treatment Upcoming Encounters Date Type Department Care Team (Late st Contact Info) Description 09/21/2024 10:15 AM EDT Office Visit [facility] MEDICINE [address] [place] [address] Sarai Trejo MD [address] [place] [address] documented as of this encounter Goals Goal Patient Goal Type Associated Problems Recent Progress Patient-Stated? Author Blood Pressure < 140/90 Blood Pressure 115/70(2024 10:06 AM EDT) No Yury Bee, PharmRosy Hemoglobin A1c < 7 Result Component 7.7( 5 10:10 AM EDT) No Yury Bee, PharmD documented as of this encounter Visit Diagnoses Not on filedocumented in this encounter Care Teams Screen Printing Supervisor Relationship Specialty Start Date End Date Sarai Trejo MD [address] [place] [address] PCP - General Family Medicine 03/22/18 documented as of this encounter
--- OUTSIDE RECORDS SUMMARY | 2024-07-17 08:57 | XMS_ITS | Encounter Summary ---
Author Organization [facility], Address [address] [place] [address] Phone Care Team Providers Care Farm Facility Manager Name Role Phone Abhishek Vergara MD Primary Care Provider [phone] Encounter Details Date Type Department Care Team ([facility] st Contact Info) Description 07/14/2023 Documentation Only [facility], [address] [place] [address] James Gore, [address] [place] [address] Social History Tobacco Use Types [...] on filedocumented in this encounter Care Teams Farm Facility Manager Relationship Specialty Start Date End Date Abhishek Vergara MD [address] [place] [address] PCP - General 04/01/20 documented as of this encounter
--- OUTSIDE RECORDS SUMMARY | 2024-07-17 08:57 | XMS_ITS | Encounter Summary ---
Author Organization [facility], Address [address] [place] [address] Phone Care Team Providers Care Director Consumer Affairs Name Role Phone Abhishek Vergara MD Primary Care Provider [phone] Encounter Details Date Type Department Care Team ([facility] st Contact Info) Description 09/09/2023 Documentation Only [facility], [address] [place] [address] James Gore, [address] [place] [address] Social History Tobacco Use Types [...] on filedocumented in this encounter Care Teams Director Consumer Affairs Relationship Specialty Start Date End Date Abhishek Vergara MD [address] [place] [address] PCP - General 04/01/20 documented as of this encounter
--- OUTSIDE RECORDS SUMMARY | 2024-07-17 08:57 | XMS_ITS | Encounter Summary ---
Author Organization [employer] Address 75 [facility] 7t [place] [address] Care Team Providers Care Neurological Physiotherapist Name Role Phone Sarai Trejo MD Primary Care Provider [phone] Reason for Visit * Reason Onset Date Comments Med Refill 07/12/2024 Encounter Details Date Type Department Care Team (Late st Contact Info) Description 07/12/2024 Refill [facility] MEDICINE [address] [place], [place] [phone] Sarai Trejo MD [address] [place], [place] [phone] Pain Social History Tobacco Use Types Packs/Day Years Used Date Smoking Tobacco: Former Cigarettes Passive Smoke Exposure: Past Smokeless Tobacco: Never Depression Answer Date Recorded Patient Health Questionnaire-9 Score 0 08/12/2023 Patient Health Questionnaire-9 Score 0 08/12/2023 Last PHQ-9: Questionnaire Data Not on file 0 08/12/2023 Housing Stability Answer Date Recorded What is your housing situation today? I have [place] 06/05/[address] you li ve. Do you have problems with any of the following? None of the above 06/05/2024 Food Insecurity Answer Date Recorded Within the past 12 months, y ou worried that your food would run out before you got money to buy more: Never True 06/05/2024 Within the past 12 months,th e food you bought just didn't last and you didn't have enough money to get more: Never True Transportation Answer Date Recorded In the past 12 months, has l ack of transportation kept you from medical appts, meetings, work or from getting things needed for daily living? No 06/05/2024 Utilities Answer Date Recorded In the past 12 months, has t he electric, gas, oil or water company threatened to shut off services in your home? No 06/05/2024 Depression Answer Date Recorded Patient Health Questionnaire-2 Score 0 08/12/2023 Internet Access Answer Date Recorded Internet Access Q1 Yes 06/05/2024 Internet Access Q2 Not on file 06/05/2024 Comments Unknown Sex and Gender Information Value Date Recorded Sex Assigned at Female 01/19/2022 10:17 AM EDT Legal Sex Female 10:17 AM EDT Gender Identity Female 01/19/2022 10:17 AM EDT Sexual Orientation Choose not to disclose 2021 10:17 AM EDT documented as of this encounter Miscellaneous Notes * Telephone Encounter - Sona Manzo LPN - 07/12/2024 10:44 AM EDT Mag-Ox should have refills. Last seen 06/05/24. * Telephone Encounter - Jordi Pardo - 07/12/2024 10:37 AM EDT TC from pt requesting medication refill. Medications needing refill : magnesium oxide (Mag-Ox) 400 MG tablet Acetaminophen Extra Strength 500 MG tablet To be sent to: [facility] - [place], [place] - [address] [place] [address] documented in this encounter Plan of Treatment Upcoming Encounters Date Type Department Care Team (Late st Contact Info) Description 09/21/2024 10:15 AM EDT Office Visit [facility] MEDICINE [address] [place] [address] Sarai Trejo MD [address] [place] [address] documented as of this encounter Goals Goal Patient Goal Type Associated Problems Recent Progress Patient-Stated? Author Blood Pressure < 140/90 Blood Pressure 115/70(2024 10:06 AM EDT) No Yury Bee PharmD Hemoglobin A1c < 7 Result Component 7.7( 5 10:10 AM EDT) No Yury Bee PharmD documented as of this encounter Visit Diagnoses Diagnosis Pain Generalized pain documented in this encounter Additional Health Concerns Assessment Noted Time PHQ-9 Depression Total Score: 0 08/12/19 24 11:13 AM EDT documented as of this encounter Care Teams Neurological Physiotherapist Relationship Specialty Start Date End Date Sarai Trejo MD [address] [place] [address] PCP - General Family Medicine 03/22/18 documented as of this encounter
--- OUTSIDE RECORDS SUMMARY | 2024-07-17 08:57 | XMS_ITS | Encounter Summary ---
Author Organization [employer] Address 75 [facility] 7t [place] [address] Care Team Providers Care Frame Welder Cargo Utility Trailers Name Role Phone Sarai Trejo MD Primary Care Provider [phone] Encounter Details Date Type Department Care Team ([facility] st Contact Info) Description 04/27/2023 Orders Only [facility] MEDICINE [address] [place], [place] [phone] Sarai Trejo MD [address] [place], [place] [phone] Social History Tobacco Use Types Packs/Day Years [...] Description 09/21/2024 10:15 AM EDT Office Visit [facility] MEDICINE 230 [place] [address] Sarai Trejo MD [address] [place] [address] documented as of this encounter Goals Goal Patient Goal Type Associated Problems Recent Progress Patient-Stated? Author Blood Pressure < 140/90 Blood Pressure 115/70(2024 10:06 AM EDT) No Yury Bee, PharmD Hemoglobin A1c < 7 Result Component 7.7( 10:10 AM EDT) No Yury Bee PharmD documented as of this encounter Visit Diagnoses Not on filedocumented in this encounter Care Teams Frame Welder Cargo Utility Trailers Relationship Specialty Start Date End Date Sarai Trejo MD [address] [place] [address] PCP - General Family Medicine 03/22/18 documented as of this encounter
--- OUTSIDE RECORDS SUMMARY | 2024-07-17 08:57 | XMS_ITS | Encounter Summary ---
Author Organization [employer] Address 75 [facility] 7t [place] [address] Care Team Providers Care Chipper Operator Name Role Phone Sarai Trejo MD Primary Care Provider [phone] Reason for Visit * Reason Onset Date Comments Medication 04/16/2023 Encounter Details Date Type Department Care Team ([facility] st Contact Info) Description 04/16/[address] [facility] MEDICINE [address] [place] [address] Sarai Trejo MD [address] [place], [place] [phone] Medication Social History Tobacco Use Types Packs/Day [...] Any questions you can contact pt at [phone]. documented in this encounter Plan of Treatment Upcoming Encounters Date Type Department Care Team (Late st Contact Info) Description 09/21/2024 10:15 AM EDT Office [address] [facility] MEDICINE [address] [place] [address] Sarai Trejo MD [address] [place] [address] documented as of this encounter Goals Goal Patient Goal Type Associated Problems Recent Progress Patient-Stated? Author Blood Pressure < 140/90 Blood Pressure 115/70(2024 10:06 AM EDT) No Yury Bee, PharmD Hemoglobin A1c < 7 Result Component 7.7( 10:10 AM EDT) No Yury Bee PharmD documented as of this encounter Visit Diagnoses Not on filedocumented in this encounter Care Teams Chipper Operator Relationship Specialty Start Date End Date Sarai Trejo MD [address] [place] [address] PCP - General Family Medicine 03/22/18 documented as of this encounter
--- OUTSIDE RECORDS SUMMARY | 2024-07-17 08:57 | XMS_ITS | Encounter Summary ---
Author Organization [employer] Address 75 [facility] 7t [place] [address] Care Team Providers Care Will Call Order Clerk Name Role Phone Sarai Trejo MD Primary Care Provider [phone] Reason for Visit * Reason Onset Date Comments uber transportation needed 02/21/2024 Encounter Details Date Type Department Care Team ([facility] st Contact Info) Description 02/21/2024 Telephone [facility] MEDICINE 230 [place], [place] [phone] Sarai Trejo MD [address] [place], [place] [phone] uber transportation needed Social History Tobacco Use [...] Miscellaneous Notes * Telephone Encounter - Savana Pascal RN - 02/24/2024 9:58 AM EST Telephone [...] Description 09/21/2024 10:15 AM EDT Office Visit [facility] MEDICINE [address] [place] [address] Sarai Trejo MD [address] [place], [place] [phone] documented as of this encounter Goals Goal [...] documented as of this encounter Care Teams Will Call Order Clerk Relationship Specialty Start Date End Date Sarai Trejo MD [address] [place] [address] PCP - General Family Medicine 03/22/18 documented as of this encounter
--- OUTSIDE RECORDS SUMMARY | 2024-07-17 08:57 | XMS_ITS | Encounter Summary ---
Author Organization [facility] Address [address] [place] [address] Care Team Providers Care Order Expediter Name Role Phone John Palu Bass MD Primary Care Provider [phone] Encounter Details Date Type Department Care Team (Late st Contact Info) Description 03/11/2024 Lab Requisition [facility] - Main Lab [address] [facility] [place] [address] John Paul Bass MD [address] [place] [address] 204 [facility] [phone] Chronic kidney disease, unspecified; Anemia, unspecified Social [...] unspecified documented in this encounter Care Teams Order Expediter Relationship Specialty Start Date End Date John Paul Bass MD [address] [facility] [address] [place], [phone] PCP - General Family Medicine 02/14/24 documented as of this encounter
--- OUTSIDE RECORDS SUMMARY | 2024-07-17 08:57 | XMS_ITS | Encounter Summary ---
Author Organization [employer] Address 75 [facility] 7t [place] [address] Care Team Providers Care Addiction Therapist Name Role Phone Sarai Trejo MD Primary Care Provider [phone] Encounter Details Date Type Department Care Team ([facility] st Contact Info) Description 03/09/2024 Abstract [facility] MEDICINE [address] [place], [place] [phone] [place] Social History Tobacco Use [...] Description 09/21/2024 10:15 AM EDT Office Visit [facility] MEDICINE [address] [place] [address] Sarai Trejo MD [address] [place], [place] [phone] documented as of this encounter Goals Goal [...] Eye Exam (10/07/2023) Eye Exam Normal Normal us Historical Provider HEALTH MAINTENANCE Final Result documented in this encounter Visit Diagnoses Not on filedocumented in this encounter Additional Health Concerns Assessment Noted Time PHQ-9 Depression Total Score: 0 08/12/19 24 11:13 AM EDT documented as of this encounter Care Teams Addiction Therapist Relationship Specialty Start Date End Date Sarai Trejo MD [address] [place], [place] [phone] PCP - General Family Medicine 03/22/18 documented as of this encounter
--- OUTSIDE RECORDS SUMMARY | 2024-07-17 08:57 | XMS_ITS | Encounter Summary ---
Author Organization [facility], Address [address] [place] [address] Phone Care Team Providers Care Broadcast Checker Name Role Phone Abhishek Vergara MD Primary Care Provider [phone] Encounter Details Date Type Department Care Team ([facility] st Contact Info) Description 07/14/2023 Documentation Only [facility], [address] [place] [address] James Gore, [address] [place] [address] Social History Tobacco Use Types [...] on filedocumented in this encounter Care Teams Broadcast Checker Relationship Specialty Start Date End Date Abhishek Vergara MD [address] [place] [address] PCP - General 04/01/20 documented as of this encounter
--- OUTSIDE RECORDS SUMMARY | 2024-07-17 08:57 | XMS_ITS | Encounter Summary ---
Author Organization [employer] [facility] Address 75 [facility] 7t [place] [address] Care Team Providers Care Tableman Name Role Phone Sarai Trejo MD Primary Care Provider Encounter Details Date Type Department Care Team (Late st Contact Info) Description 07/03/2022 Orders Only [facility] MEDICINE [address] [place], [place] [phone] Sarai Trejo MD [address] [place], [place] [phone] Social History Tobacco Use Types Packs/Day Years [...] 09/21/2024 10:15 AM EDT Office Visit [facility] MEDICINE [address] [place], [place] [phone] Sarai Trejo MD [address] [place] [address] documented as of this encounter Visit Diagnoses Not on filedocumented in this encounter Care Teams Tableman Relationship Specialty Start Date End Date Sarai Trejo MD [address] [place] [address] PCP - General Family Medicine 03/22/18 documented as of this encounter
--- OUTSIDE RECORDS SUMMARY | 2024-07-17 08:57 | XMS_ITS | Encounter Summary ---
Author Organization [facility] Address [address] [place] [address] Care Team Providers Care School Patrol Name Role Phone John Paul Bass MD Primary Care Provider [phone] Encounter Details Date Type Department Care Team (Late st Contact Info) Description 03/03/2024 Lab Requisition [facility] - Main Lab [address] [facility] [employer] [place] [address] John Paul Bass MD [address] [place] [address] 204 [facility] [id number] Chronic kidney disease, unspecified; Anemia, unspecified Social [...] unspecified documented in this encounter Care Teams School Patrol Relationship Specialty Start Date End Date John Paul Bass MD [address] [facility] [address] [place], [phone] PCP - General Family Medicine 02/14/24 documented as of this encounter
--- OUTSIDE RECORDS SUMMARY | 2024-07-17 08:57 | XMS_ITS | Clinical Summary ---
Author Organization [address] Address [address] [place] [address] Phone Care Team Providers Care Waste Management Specialist Name Role Phone John Paul Bass MD Primary Care Provider [phone] Social History Tobacco Use Types Packs/Day Years [...] (2 of 3) 04/21/2011 02/24/2011 RSV Immunization Adult Patients (1 - 1-dose 75+ series) 12/19/2019 COVID-19 Vaccine ( season) 2023 01/07/2021, 05/17/2020, 04/26/2020 Cholesterol Screening (Lipid Panel) 02/14/2024 Depression Screening 02/14/2024 Diabetes: Annual Urine Albumin-Creatinine Ratio (uACR) 02/14/2024 Falls Risk Assessment 02/14/2024 Hepatitis C Screening 02/14/2024 Osteoporosis Screening (Bone Density Screening) 02/14/2024 Social Influencers of Health Screening 02/14/2024 Diabetes: Blood Sugar Control Test (HGBA1C) 08/13/2024 02/14/2024, 03/27/2019 Influenza Vaccine (Season Ended) 2024 03/09/2023, 12/30/2021, 01/07/2021, Additional history exists Diabetes: Annual GFR (Glomerular Filtration Rate) 02/27/2025 [...] age to complete this topic Meningococcal B Vaccine Aged Out No l onger eligible based on patient's age to complete [...] EST Type 2 diabetes mellitus without complications ([facility]) from Last 3 Months or Most Recently Relevant to Health Maintenance Results * (ABNORMAL) Basic metabolic panel (02/28/2024 5:23 AM EST) Sodium 139 133 - 145 mmol/L LAB CHEMISTRY METHOD 02/28/2024 10:07 AM EST [facility] Potassium 4.5 3.5 - 5.5 mmol/L LAB CHEMISTRY METHOD 02/28/2024 10:[address] [facility] Chloride 102 96 - 110 mmol/L LAB CHEMISTRY METHOD 02/28/2024 10:[address] [facility] CO2 31 21 - 32 mmol/L LAB CHEMISTRY METHOD 02/28/2024 10:[address] [facility] Anion Gap 6 3 - 11 LAB CHEMISTRY METHOD 02/28/2024 10:[address] [facility] Glucose 230(H) 70 - 100 mg/dL LAB CHEMISTRY METHOD 02/28/2024 10:[address] [facility] BUN 53(H) 5 - 25 mg/dL LAB CHEMISTRY METHOD 02/28/2024 10:[address] [facility] Creatinine 1.69(H) 0.50 - 1.10 mg/dL LAB CHEMISTRY METHOD 02/28/2024 10:[address] [facility] eGFR 31(L) >=60 mL/min/1. 73m2 LAB CHEMISTRY METHOD 02/28/2024 10:[address] [facility] Comment:Calculation based on the??Chronic Kidney Disease Epidemiology Collaboration (CKD-EPI) equation refit??without adjustment for race. BUN/Creatinine Ratio 31.4 LAB CHEMISTRY METHOD 02/28/2024 10:[address] [facility] Calcium 9.6 8.5 - 10.5 mg/dL LAB CHEMISTRY METHOD 02/28/2024 10:[address] [facility] Blood Venous blood specimen / Unknown Venipuncture / Unknown 02/28/2024 5:23 AM EST 02/28/2024 9:12 AM EST us John Paul Bass MD LAB BLOOD ORDERABLES Final Resul t [facility] [address] [place] [address], * (ABNORMAL) Hemoglobin A1c (02/14/2024 6:29 AM EST) Hemoglobin A1C 6.5(H) <6.5 % LAB CHEMISTRY METHOD 02/14/2024 1:59 PM EST [facility] Mean Bld Glu Estim. 140 mg/dL LAB CHEMISTRY METHOD 02/14/2024 1:59 PM EST [facility] Blood Venous blood specimen / Unknown Venipuncture / Unknown 02/14/2024 6:29 AM EST 02/14/2024 9:47 AM EST us John Paul Bass MD LAB BLOOD ORDERABLES Final Resul t [facility] [address] [place] [address], [place] [phone] from Last 3 Months or Most Recently Relevant to Health Maintenance Insurance [facility] Member Subscriber Plan / Payer (Ef fective 2014-Present) Name:Aaliyah Light Relation to Subscriber:Self Name:Aaliyah Light Payer ID:[id number] Group ID:[id number] Type:Not on file Address: [place] [address] [place] [address] Care Teams Waste Management Specialist Relationship Specialty Start Date End Date John Paul Bass MD [address] [facility] [address] [place], [address] PCP - General Family Medicine 02/14/24
--- OUTSIDE RECORDS SUMMARY | 2024-07-17 08:57 | XMS_ITS | Encounter Summary ---
Author Organization [employer] Address 75 [facility] 7t [place] [address] Care Team Providers Care Archery Equipment Hay Sorter Name Role Phone Sarai Trejo MD Primary Care Provider [phone] Encounter Details Date Type Department Care Team ([facility] st Contact Info) Description 04/20/2023 Orders [address] [facility] MEDICINE [address] [place], [place] [phone] Sarai Trejo MD [address] [place], [place] [phone] Social History Tobacco Use Types Packs/Day Years [...] AM EDT Office Visit [facility] MEDICINE [address] [place] [address] Sarai Trejo MD [address] [place] [address] documented as of this encounter Goals Goal Patient Goal Type Associated Problems Recent Progress Patient-Stated? Author Blood Pressure < 140/90 Blood Pressure 115/70(2024 10:06 AM EDT) No Yury Bee, PharmD Hemoglobin A1c < 7 Result Component 7.7( 10:10 AM EDT) No Yury Bee PharmD documented as of this encounter Visit Diagnoses Not on filedocumented in this encounter Care Teams Archery Equipment Hay Sorter Relationship Specialty Start Date End Date Sarai Trejo MD [address] [place] [address] PCP - General Family Medicine 03/22/18 documented as of this encounter
--- OUTSIDE RECORDS SUMMARY | 2024-07-17 08:57 | XMS_ITS | Encounter Summary ---
Author Organization [employer] Address 75 [facility] 7t [place] [address] Care Team Providers Care Production Planner Name Role Phone Sarai Trejo MD Primary Care Provider [phone] Reason for Visit * Reason Onset Date Comments Lab Orders 02/24/2022 Encounter Details Date Type Department Care Team (Late st Contact Info) Description 02/24/2022 Telephone [facility] [address] [place], [place] [phone] Sarai Trejo MD [address] [place], [place] [phone] Lab Orders Social History Tobacco Use Types [...] requesting lab order to be sent to [facility] . . Pt informed received a call about 2 weeks ago to get labs done down stairs . Network Contract Manager was unable to find orders. documented in this encounter Plan of Treatment Upcoming Encounters Date Type Department Care Team (Late st Contact Info) Description 09/21/2024 10:15 AM EDT Office Visit [facility] [address] [place] [address] Sarai Trejo MD [address] [place] [address] documented as of this encounter Visit Diagnoses Not on filedocumented in this encounter Care Teams Production Planner Relationship Specialty Start Date End Date Sarai Trejo MD [address] [place] [address] PCP - General Family Medicine 03/22/18 documented as of this encounter
--- OUTSIDE RECORDS SUMMARY | 2024-07-17 08:57 | XMS_ITS | Clinical Summary ---
Author Organization [facility], Address [address] [place] [address] [place] [address] Phone Care Team Providers Care Edge Trimmer Mechanic Name Role Phone Abhishek Vergara MD Primary Care Provider [phone] Allergies Active Allergy Reactions Criticality Noted Date [...] Telephone [facility] [address] [place] [address] Dunia Butler RN from Last 3 Months Family History [...] Exam 08/25/2023 Diabetes: Visual Foot Exam 08/25/2023 Diabetes: Hemoglobin A1C 05/16/2024 024, 03/27/2019 Influenza Vaccine (Season Ended) 2024 03/09/2023, 12/25/2019 Pneumococcal Vaccine: 50+ Years Completed 04/30/2017, 03/12/2015, 07/28/2010 Pneumococcal Vaccine: Peds ( 0 to 5 Years) and At-Risk Patients (6 to 49 Years) Discontinued 04/30/2017, 03/12/2015, 07/28/2010 Hepatitis B Vaccine Aged Out No longe r eligible based on patient's age to complete this topic Procedures Procedure Name Priority Date/Time Associated Diagnosis Comments HEMOGLOBIN A1C Routine 03/27/2019 12:38 PM EST from Last 3 Months or Most Recently Relevant to Health Maintenance Results * (ABNORMAL) Hemoglobin A1c (03/27/2019 12:38 PM EST) Hemoglobin A1C 6.2(H) (4-6) % [facility] 3 Comment: HEMOGLOBIN A1C(%) ?? GLUCOSE CONTROL INDEX ?<6% ? EXCELLENT ?6-7% ?VERY GOOD ?7-8% ?GOOD ?8-10% ? FAIR ?>10% ?POOR Hemoglobin (Hb) A1c testing is performed by Rebecca Taylor-quant immunoassay. Any cause of shortened erythrocyte survival will reduce exposure of erythrocytes to glucose with a consequent decrease in Hb A1c (%). Testing performed or reported by ~[facility], ~a Service of [facility], ~[address] [place] [address]~ Viki Rios MD, Economics Faculty Member~ 03/27/2019 12:3 8 PM EST us Lenny Pelayo MD LAB BLOOD ORDERABLES Final Res ult [facility] 3 from Last 3 Months or Most Recently Relevant to Health Maintenance Insurance [facility] JAIME ([id number]) [place] [id number] [facility] ([id number]) Care Teams Edge Trimmer Mechanic Relationship Specialty Start Date End Date Abhishek Vergara MD [address] [place] [address] PCP - General 04/01/20
--- OUTSIDE RECORDS SUMMARY | 2024-07-17 08:57 | XMS_ITS | Encounter Summary ---
Author Organization [facility], Address [address] [place] [address] Phone Care Team Providers Care Assistant Athletic Trainer Name Role Phone Abhishek Vergara MD Primary Care Provider [phone] Encounter Details Date Type Department Care Team ([facility] st Contact Info) Description 10/06/2022 Documentation Only [facility], [address] [place] [place] [address] James Gore, [address] [place] [place] [address] Social History Tobacco Use Types [...] on filedocumented in this encounter Care Teams Assistant Athletic Trainer Relationship Specialty Start Date End Date Abhishek Vergara MD [address] [place] [address] PCP - General 04/01/20 documented as of this encounter
--- OUTSIDE RECORDS SUMMARY | 2024-07-17 08:57 | XMS_ITS | Encounter Summary ---
Author Organization [employer] Address 75 [facility] [address] [place] [address] Care Team Providers Care Manager Administrative Services Name Role Phone Sarai Trejo MD Primary Care Provider [phone] Reason for Visit * Reason Onset Date Comments Reschedule 07/16/2023 Encounter Details Date Type Department Care Team ([facility] st Contact Info) Description 07/16/2023 Telephone [facility] [address] [place], [place] [phone] Sarai Trejo MD [address] [place], [place] [phone] Reschedule Social History Tobacco Use Types Packs/Day [...] t he electric, gas, oil or water [employer] threatened to shut off services in your [...] appt but not to early in the morning,chief underwriter offer 2 different appts to pt on August but pt doesn't accept them. documented in this encounter Plan of Treatment Upcoming Encounters Date Type Department Care Team (Late st Contact Info) Description 09/21/2024 10:15 AM EDT Office Visit [facility] [address] [place] [address] Sarai Trejo MD [address] [place] [address] documented as of this encounter Goals Goal Patient Goal Type Associated Problems Recent Progress Patient-Stated? Author Blood Pressure < 140/90 Blood Pressure 115/70(2024 10:06 AM EDT) No Yury Bee, PharmD Hemoglobin A1c < 7 Result Component 7.7( 10:10 AM EDT) No Yury Bee PharmD documented as of this encounter Visit Diagnoses Not on filedocumented in this encounter Care Teams Manager Administrative Services Relationship Specialty Start Date End Date Sarai Trejo MD [address] [place] [address] PCP - General Family Medicine 03/22/18 documented as of this encounter
--- OUTSIDE RECORDS SUMMARY | 2024-07-17 08:57 | XMS_ITS | Encounter Summary ---
Author Organization [employer] Address 75 [facility] 7t [place] [address] Care Team Providers Care Business Info Consultant Name Role Phone Sarai Trejo MD Primary Care Provider [phone] Reason for Visit * Reason Comments Med Refill Encounter Details Date Type Department Care Team (Late st Contact Info) Description 07/17/[address] [facility] MED[facility]INE [address] [place], [place] [phone] Sarai Trejo MD [address] [place], [place] [phone] Social History Tobacco Use Types Packs/Day Years [...] Description 09/21/2024 10:15 AM EDT Office Visit [facility] [address] [place] [address] Sarai Trejo MD [address] [place] [address] documented as of this encounter Goals Goal [...] documented as of this encounter Care Teams Business Info Consultant Relationship Specialty Start Date End Date Sarai Trejo MD [address] [place], [place] [phone] PCP - General Family Medicine 03/22/18 documented as of this encounter
--- OUTSIDE RECORDS SUMMARY | 2024-07-17 08:57 | XMS_ITS | Encounter Summary ---
Author Organization [employer] Address 75 [facility] 7t [place] [address] Care Team Providers Care Information Manager Name Role Phone Sarai Trejo MD Primary Care Provider [phone] Encounter Details Date Type Department Care Team ([facility] st Contact Info) Description 01/11/2024 Orders Only [facility] MED[facility]INE [address] [place], [place] [phone] Sarai Trejo MD [address] [place], [place] [phone] Social History Tobacco Use Types Packs/Day Years [...] Description 09/21/2024 10:15 AM EDT Office Visit [facility] [address] [place], [place] [phone] Sarai Trejo MD [address] [place] [address] documented as of this encounter Goals Goal [...] documented as of this encounter Care Teams Information Manager Relationship Specialty Start Date End Date Sarai Trejo MD [address] [place] [address] PCP - General Family Medicine 03/22/18 documented as of this encounter
--- OUTSIDE RECORDS SUMMARY | 2024-07-17 08:57 | XMS_ITS | Encounter Summary ---
Author Organization [employer] Address [address] [facility] 7t [place] [address] Care Team Providers Care Lump Roller Name Role Phone Sarai Trejo MD Primary Care Provider [phone] Encounter Details Date Type Department Care Team (Late st Contact Info) Description 04/30/2022 Orders Only [facility] [address] [place], [place] [phone] Sona Manzo LPN Social History Tobacco Use [...] Description 09/21/2024 10:15 AM EDT Office Visit [facility] [address] [place] [address] Sarai Trejo MD [address] [place] [address] documented as of this encounter Visit Diagnoses Not on filedocumented in this encounter Care Teams Lump Roller Relationship Specialty Start Date End Date Sarai Trejo MD [address] [place], [place] [phone] PCP - General Family Medicine 03/22/18 documented as of this encounter
--- OUTSIDE RECORDS SUMMARY | 2024-07-17 08:57 | XMS_ITS | Encounter Summary ---
Author Organization [facility], Address [address] [place] [address] Phone Care Team Providers Care Dry Talc Racker Name Role Phone Abhishek Vergara MD Primary Care Provider [phone] Encounter Details Date Type Department Care Team ([facility] st Contact Info) Description 07/14/2023 Documentation Only [facility], [address] [place] [address] James Gore, [address] [place] [address] Social History Tobacco Use Types [...] on filedocumented in this encounter Care Teams Dry Talc Racker Relationship Specialty Start Date End Date Abhishek Vergara MD [address] [place] [address] PCP - General 04/01/20 documented as of this encounter
--- OUTSIDE RECORDS SUMMARY | 2024-07-17 08:57 | XMS_ITS | Data Portability ---
Author Organization [employer] [facility] Address [address] [place] [address] Care Team Providers Care Building Serviceman Name Role Phone HIM KIMBERLY OTHER Assessment Encounter Date Assessment Date Assessment LastModified by Organization Details LastModified Time 08/25/2023 08/25/2023 I provided real -time medical direction via phone for this encounter and was available for additional phone-based assistance as needed. I have reviewed and agree with the Assessment and Plan as documented by the Ripening Room Operator. Patient given the opportunity to ask questions. Our service contacted for an assessment of: hyperglycemia As per above, patient on insulin pump with elevated BG this am. Denies F/C/dysuria, frequency or urgency. Per medical technologist prn on the scene, VSS, non-toxic, NAD. POC testing noted Impression and plan: DM with hyperglycemia but no evidence of DKA. Current BG is 168. Continue with current plan. We discussed the diagnostic uncertainty of home visits and the risk associated with this. In this case, the patient and I felt this to be an acceptable and reasonable amount of risk given the benefit of avoiding an ED visit. We discussed the need to seek care urgently/emergen tly in the setting of any new or worsening serious symptoms [email or web address] Not available 08/25/2023 16:07:54 Plan of Treatment Reminders Order Date Submit Date Provider Last Modified By Organization Details Last Modified Time Details Appointments None recorded. Lab urinalysis , dipstick 2023 024 YANICK [facility], [address] [place] [address], [place], [address] 08:29:07 Referral None recorded. Procedures None recorded. Surgeries None recorded. Imaging None recorded. Medication Orders None recorded. Patient TargetsNo targets recorded. Patient InstructionsNo instructions recorded. Reason for Referral None Reported. Results Created Date Observation Date Name Description Value Unit Range Abnormal Flag Note LastModifiedBy Organization Detail LastModifiedTime Result Notes None recorded. Medical Equipment None Reported. Allergies Allergen ID Allergen Name Allergen Category Reaction Reaction Severity Criticality Documentation Date Start Date Code Code System Note Provider Name and Address Organization Details Recorded Time 7353 Bactrim medicatio n Not available Not available Not available 01/18/2024 35319 9 RxNorm Not Available [facility] - production 4 03:36:50 Medications Name Sig Start Date Stop Date Status Note LastModified by Organization Details LastModified Time delivery fee active Not Available Not Available Not Available Anti-Diarrheal (loperamide) 2 mg tablet active Not Available Not Available Not Available atorvastatin 40 mg tablet active Not Available Not Available No t Available Vitamin B-2 100 mg tablet active Not Available Not Available No t Available torsemide 20 mg tablet active Not Available Not Available Not Available loperamide 2 mg capsule active Not Available Not Available Not Available amiodarone 200 mg tablet active Not Available Not Available Not Available metoprolol succinate ER 50 mg tablet,extended release 24 hr active Not Available Not Availabl e Not Available FreeStyle Lancets 28 gauge active Not Available Not Available Not Available ondansetron HCl 4 mg tablet active Not Available Not Available No t Available isosorbide mononitrate ER 30 mg tablet,extended release 24 hr active Not Available Not Availabl e Not Available clopidogrel 75 mg tablet active Not Available Not Available Not Available aspirin 81 mg tablet,delayed release active Not Available Not Available Not Available spironolactone 25 mg tablet active Not Available Not Available No t Available magnesium oxide 400 mg (241.3 mg magnesium) tablet active Not Available Not Avai lable Not Available nitrofurantoin macrocrystal 100 mg capsule active Not Available Not Available N ot Available Novolog U-100 Insulin aspart 100 unit/mL subcutaneous solution active Not Available Not Available Not Available azelastine 137 mcg (0.1 %) nasal spray active Not Available Not Available Not Available carbidopa 25 mg-levodopa 100 mg tablet active Not Available Not Available No t Available fluticasone propionate 50 mcg/actuation nasal spray,suspension active Not Available Not Avail able Not Available loratadine 10 mg tablet active Not Available Not Available Not Available amoxicillin 875 mg-potassium clavulanate 125 mg tablet active Not Available Not Available No t Available cyclobenzaprine 5 mg tablet active Not Available Not Available No t Available nitrofurantoin monohydrate/macro crystals 100 mg capsule active Not Available Not Available Not Available cholecalciferol (vitamin D3) 25 mcg (1,000 unit) tablet active Not Available Not Available Not Available cholecalciferol (vitamin D3) 50 mcg (2,000 unit) capsule active Not Available Not Available Not Available Entresto 49 mg-51 mg tablet active Not Available Not Available No t Available Vitals Date Recorded Body temperature Respiratory rate Oxygen saturation Oxygen saturation in Arterial blood by Pulse oximetry Body weight Heart rate Systolic blood pressure Diastolic blood pressure Provider Name and Address Organization Details Last Updated DateTime 4 97.6 [degF] 16 /min 98 % 98 % 50479.1 44 g 80 /min 130 mm[Hg] 72 mm[Hg] Not Available [facility] - production 4 15:57:37 Date Recorded Heart rate Respiratory rate Oxygen saturation Oxygen saturation in Arterial blood by Pulse oximetry Systolic blood pressure Diastolic blood pressure Provider Name and Address Organization Details Last Updated DateTime 2 60 /min 16 /min 96 % 96 % 149 mm[Hg] 65 mm[Hg] Not Available [facility] - production 2 15:26:00 Social History None recorded. Functional Status None recorded. Mental Status None recorded. Family History Nothing Reported. Medical History No medical history recorded. Gynecological HistoryNo gynecological history recorded. Obstetrics History GPAL:G 0 P 0 0 0 0 Past Encounters Encounter ID Performer Location Encounter Start Date Encounter Closed Date Diagnosis/Indication Diagnosis SNOMED-CT Code Diagnosis ICD10 Code Diagnosis Note [id number] Pollo Smith MD Main - [address] [address] 01/22/2022 15:25:58 01/22/2022 15:27:45 Accidental fall [id number].XXXA Patient presents with progressiv e rib pain following a hard fall on 01/16. She has not been evaluated medically or had imaging. SHe was hoping symptoms would improve but they have not. She was transferre d to the ED for evaluation including imaging. [id number] Suzi Vega MD Main - [address] [address] 08/25/2023 15:57:32 08/25/2023 21:44:41 Hyperglycemia due to type 2 diabetes mellitus [id number] 58936 E11.65 Health Concerns Section Related Observation LastModified by Organization Detai ls LastModified Time None Recorded Concern Status LastModified by Organization Details LastModified Time None Recorded Advance Directives Directive None Recorded Payers Encounter Date Sequence Insurance Name Policy Number Policy Lind Covered Member ID Lind Member ID Guarantor Name 01/22/2022 1 [facility] - DOS PRIOR TO 2022 - DUAL ELIGIBLE (MEDICARE REPLACEMENT/AD VANTAGE - HMO) Aaliyah Light [id number] Aaliyah Light 08/25/2023 1 [facility] - DOS ON OR AFTER 2022 - DUAL ELIGIBLE - PENITENTIARY OPTIONS AND ONE CARE (MEDICARE REPLACEMENT/AD VANTAGE - HMO) Aaliyah Light [id number] Aaliyah Light Notes Date Note Type Note Provider Name and Address Organization Details Recorded Time 01/22/2022 text/html [facility] Nursing Assessment: Reason For Request: Patient suffered a fall on 01/16/22. Patient was recently seen by [facility] over the past weekend. Patient symptoms include severe pain on her left side near her ribs. Patient describes pain in going up her arm as well. Chief Complaints: Falls, Pain PMH: Heart Disease, Diabetes Allergies: Bactrim Comments: Spoke to daughter, per her member had a fall 01/16, called 911 but refused to go to the ED for eval and xrays. Pain to her left side; arm ribs and leg have been getting increasingly worse. She does have bruises on her left side. Daughter tried to convince her to go to the ED, but member is still refusing, she is hoping we can encourage her to go if they feel it is warranted. Member has a walker that she doesn't usually need around the house and she is now using for stability. Pollo Smith MD [address] [facility],[address], [place], [address], [facility] [employer] 01/22/2022 15:27:42 08/25/2023 text/html [facility] Nurse Triage Notes (Dafne Downing): Reason For Request: Diabetic problems, general weakness and blurred vision. Chief Complaints: Diabetes Related, Weakness/Lethargy, ENT PMH: Heart Disease, Diabetes Allergies: Bactrim Comments: Members granddaughter calling in to place a referral, member identified via name and . Member who is diabetic and on a insulin pump, basal rate unknown and gives 6 units with meals. Member morning blood sugar was 415 and gave 6 units, after breakfast blood sugar was 452 and gave 7 units, during call blood sugar was 362. Member does not take any long acting or po anit-diabetic medications. Granddaughter states blood sugars were elevated yesterday, question compliance with giving insulin. Member with dizziness, vision changes and fatigue, denies n/v/d, no abdominal pain, no increased thirst or urination. 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 Member in the hospital 2 months ago for septic shock, ?urosepsis. Member has recurrent UTIs for 2 years. Member potentially has an infection currently, +burning with urination, itchiness, malodor and intermittent flank pain, denies urgency/frequency, blood and no fever/chills. Member agreeable to being evaluated. ................... ................... ................... ................... ................... ................... ................... ........ Ripening Room Operator Note From Andrés Booth: Pt co high BS and foul smelling urine with some pain. Pt denies fever. , confusion, frequent urination, cp sob dizziness headache or NVD. Baseline vitals assessed, BS 168, urine dip benign. Urine yellow in color , not cloudy. Afebrile. C contacted and advised to pt to follow up with pcp. Pt education on signs indicating the ER. Ripening Room Operator Allergies: Bactrim ................... ................... ................... ................... ................... ................... ................... ........ Disposition: Fulfilled Suzi Vega MD [address] [facility], [place], [address], [employer] [facility] 08/25/2023 16:08:19 OBGyn Episode No OBEpisode recorded.
--- OUTSIDE RECORDS SUMMARY | 2024-07-17 08:58 | XMS_ITS | Encounter Summary ---
Author Organization [employer] Address [address] [facility] 7t [place] [address] Care Team Providers Care Crankshaft Balancer Name Role Phone Sarai Trejo MD Primary Care Provider [phone] Encounter Details Date Type Department Care Team (Late st Contact Info) Description 11/06/2022 Orders Only [facility] MEDICINE [address] [place] [phone] Sarai Trejo MD [address] [place] [address] [phone] Right arm pain (Primary Dx); Right elbow [...] Description 09/21/2024 10:15 AM EDT Office Visit [facility] MEDICINE [address] [place] [phone] Sarai Trejo MD [address] [place] [phone] documented as of this encounter Visit Diagnoses Diagnosis Right arm pain- Primary Pain in soft tissues of limb Right elbow pain Pain in joint, upper arm Acute pain of right shoulder documented in this encounter Care Teams Crankshaft Balancer Relationship Specialty Start Date End Date Sarai Trejo MD [address] [place] [id number] PCP - General Family Medicine 03/22/18 documented as of this encounter
--- OUTSIDE RECORDS SUMMARY | 2024-07-17 08:58 | XMS_ITS | Encounter Summary ---
Author Organization [employer] Address 75 [facility] 7t [place] [address] Care Team Providers Care Dispatch Lead Name Role Phone Sarai Trejo MD Primary Care Provider [phone] Encounter Details Date Type Department Care Team (Late st Contact Info) Description 03/02/2023 Orders Only [facility] MEDICINE [address] [place], [place] [phone] Sarai Trejo MD [address] [place], [place] [phone] Abdominal pain, unspecified abdominal location (Primary Dx); [...] t he electric, gas, oil or water [employer] threatened to shut off services in your [...] AM EDT Office Visit [facility] MEDICINE [address] [place], [place] [phone] Sarai Trejo MD [address] [place] [address] documented as of this encounter Goals Goal Patient Goal Type Associated Problems Recent Progress Patient-Stated? Author Blood Pressure < 140/90 Blood Pressure 115/70(2024 10:06 AM EDT) No Yury Bee PharmRosy Hemoglobin A1c < 7 Result Component 7.7( 10:10 AM EDT) No Yury Bee PharmD documented as of this encounter Visit Diagnoses Diagnosis Abdominal pain, unspecified abdominal location- Primary Constipation, unspecified constipation type documented in this encounter Care Teams Dispatch Lead Relationship Specialty Start Date End Date Sarai Trejo MD [address] [place] [address] PCP - General Family Medicine 03/22/18 documented as of this encounter
--- OUTSIDE RECORDS SUMMARY | 2024-07-17 08:58 | XMS_ITS | Encounter Summary ---
Author Organization [employer] Address [address] [facility] 7t [place] [address] Care Team Providers Care Tufter Operator Name Role Phone Sarai Trejo MD Primary Care Provider [phone] Encounter Details Date Type Department Care Team (Late st Contact Info) Description 06/03/2022 Orders Only [facility] [address] [place], [place] [phone] Sona Manzo LPN Social History Tobacco Use [...] Description 09/21/2024 10:15 AM EDT Office Visit [facility] [address] [place] [address] Sarai Trejo MD [address] [place] [address] documented as of this encounter Visit Diagnoses Not on filedocumented in this encounter Care Teams Tufter Operator Relationship Specialty Start Date End Date Sarai Trejo MD [address] [place], [place] [phone] PCP - General Family Medicine 03/22/18 documented as of this encounter
--- OUTSIDE RECORDS SUMMARY | 2024-07-17 08:58 | XMS_ITS | Encounter Summary ---
Author Organization [employer] Address [address] [facility] 7t [place] [address] Care Team Providers Care Correction Lieutenant Name Role Phone Sarai Trejo MD Primary Care Provider [phone] Encounter Details Date Type Department Care Team ([facility] st Contact Info) Description 12/31/2022 Orders Only [facility] [address] [place], [place] [phone] Sarai Trejo MD [address] [place], [place] [phone] Osteoporosis without current pathological fracture, unspecified osteoporosis [...] Description 09/21/2024 10:15 AM EDT Office Visit [facility] [address] [place] [phone] Sarai Trejo MD [address] [place] [phone] documented as of this encounter Visit Diagnoses Diagnosis Osteoporosis without current pathological fracture, unspecified osteoporosis type- Primary documented in this encounter Care Teams Correction Lieutenant Relationship Specialty Start Date End Date Sarai Trejo MD [address] [place] [phone] PCP - General Family Medicine 03/22/18 documented as of this encounter
--- OUTSIDE RECORDS SUMMARY | 2024-07-17 08:58 | XMS_ITS | Encounter Summary ---
Author Organization [employer] Address [address] [facility] 7t [place] [address] Care Team Providers Care Math Professor Name Role Phone Saari Trejo MD Primary Care Provider [phone] Encounter Details Date Type Department Care Team ([facility] st Contact Info) Description 01/14/2023 Orders Only [facility] [address] [place], [place] [phone] Kacie Rojas MD [address] [place], [place] [phone] Hypercalcemia (Primary Dx) Social History Tobacco Use [...] Description 09/21/2024 10:15 AM EDT Office Visit [facility] [address] [place], [place] [phone] Sarai Trejo MD [address] [place], [place] [phone] Scheduled Orders Name Type Priority Associated Diagnoses Orde r Schedule Albumin Lab Routine Hypercalcemia Expected: 01/14/2023 (Approximate), Expires: 01/15/2024 Alkaline Phosphatase Lab Routine Hypercalcemia Expected: 01/14/2023, Expires: 01/15/2024 documented as of this encounter Goals Goal Patient Goal Type Associated Problems Recent Progress Patient-Stated? Author Blood Pressure < 140/90 Blood Pressure 115/70(2024 10:06 AM EDT) No Yury Bee, Magdalena Hemoglobin A1c < 7 Result Component 7.7( [...] Bilirubin, Total 0.8 0.0 - 1.0 mg/dL [facility] Bilirubin, Direct 0.2 0.0 - 0.5 mg/dL [facility] Aspartate Amino Transferase 29 5 - 31 U/L [facility] Alanine Aminotransferase 23 0 - 31 U/L [facility] Total Protein 8.0 6.5 - 8.0 g/dL [facility] Albumin Level 4.4 3.5 - 5.0 g/dL [facility] Alkaline Phosphatase 71 39 - 117 U/L [facility] Blood Venous blood specimen / Unknown 01/27/2023 11:57 AM EST 01/27/2023 11:59 AM EST Kacie Rojas MD LAB BLOOD ORDERABLES Final Result [facility] [address] [place] [phone] * Vitamin D, 25-Hydroxy, Total, Immunoassay (01/27/2023 11:57 AM EST) Vitamin D 25-OH Total 33.2 >30 ng/mL [facility] Comment:Health Based Referen ce Values*< 20 ng/mL [id number] ng/mL Insufficient> 30 ng/mL Sufficient*Hanna [place]. N [...] BLOOD ORDERABLES Final Result Performing Organization Address [facility] Co de Phone Number [facility] [address] [place] [phone] * (ABNORMAL) Calcium (01/27/2023 11:57 AM EST) Calcium 10.7(H) 8.4 - 10.2 mg/dL [facility] Blood Venous blood specimen / Unknown 01/27/2023 11:57 AM EST 01/27/2023 11:59 AM EST Kacie Rojas MD LAB BLOOD ORDERABLES Final Result Performing Organization Address [facility] de Phone Number [facility] [address] [place] [phone] * (ABNORMAL) PTH, Intact Without Calcium (01/27/2023 11:57 AM EST) PTHI 11(A) 16 - 77 pg/mL [facility] Comment:Interpretive Guide I ntact PTH Calcium -------Normal Parathyroid Normal NormalHypoparathyroidism Low or Low Normal LowHyperparathyroidism Primary Normal or High High Secondary High Normal or Low Tertiary High HighNon-Parathyroid Hypercalcemia Low or Low Normal High Calcium (PTHI) 10.7(A) 8.6 - 10.4 mg/dL [facility] Comment:THIS TEST WAS PERFOR MED AT:[facility] [place] [id number] ROSARIO MD Blood Venous blood specimen / Unknown 01/27/2023 11:57 AM EST 01/27/2023 11:59 AM EST Kacie Rojas MD LAB BLOOD ORDERABLES Final Result Performing Organization Address [facility] de Phone Number [facility] [address] [place] [phone] documented in this encounter Visit Diagnoses Diagnosis Hypercalcemia- Primary documented in this encounter Care Teams Math Professor Relationship Specialty Start Date End Date Sarai Trejo MD [address] [place] [phone] PCP - General Family Medicine 03/22/18 documented as of this encounter
--- OUTSIDE RECORDS SUMMARY | 2024-07-17 08:58 | XMS_ITS | Clinical Summary ---
Author Organization [facility] Address [address] [place] [address] Care Team Providers Care Floor Sanding Machine Operator Name Role Phone Unavailable Primary Care Provider [...]
--- OUTSIDE RECORDS SUMMARY | 2024-07-17 08:58 | XMS_ITS | Encounter Summary ---
Author Organization [employer] Address [address] [facility] 7t [place] [address] Care Team Providers Care Dentist Name Role Phone Sarai Trejo MD Primary Care Provider [phone] Reason for Visit * Reason Onset Date Comments Reschedule 03/17/2023 Encounter Details Date Type Department Care Team ([facility] st Contact Info) Description 03/17/2023 Telephone [facility] [address] [place], [place] [phone] Sarai Trejo MD 230 [place], [place] [phone] Reschedule Social History Tobacco Use Types Packs/Day [...] t he electric, gas, oil or water [employer] threatened to shut off services in your [...] Description 09/21/2024 10:15 AM EDT Office Visit [facility] [address] [place] [address] Sarai Trejo MD [address] [place] [address] documented as of this encounter Goals Goal Patient Goal Type Associated Problems Recent Progress Patient-Stated? Author Blood Pressure < 140/90 Blood Pressure 115/70(2024 10:06 AM EDT) No Yury Bee, PharmD Hemoglobin A1c < 7 Result Component 7.7( 10:10 AM EDT) No Yury Bee, Magdalena documented as of this encounter Visit Diagnoses Not on filedocumented in this encounter Care Teams Dentist Relationship Specialty Start Date End Date Sarai Trejo MD [address] [place], [place] [phone] PCP - General Family Medicine 03/22/18 documented as of this encounter
--- OUTSIDE RECORDS SUMMARY | 2024-07-17 08:58 | XMS_ITS | Encounter Summary ---
Author Organization [facility] Address [address] [place] [address] Care Team Providers Care Electrical Instrument Maker Name Role Phone John Paul Bass MD Primary Care Provider [phone] Encounter Details Date Type Department Care Team (Late st Contact Info) Description 03/01/2024 Lab Requisition [facility] [address] [facility] [place] [phone] John Paul Bass MD [address] [facility] [address] [facility] [phone] Urinary tract infection, site not [...] Tube Hold for add-ons. 03/01/2024 1:01 PM [facility] Comment:Auto resulted. Urine Urine specimen obtained by clean catch procedure / Unknown 03/01/2024 1:00 AM EST 03/01/2024 11:03 AM EST us John Paul Bass MD LAB URINE ORDERABLES Final Resul t [facility] [address] [place] [address], * (ABNORMAL) Urinalysis with reflex microscopic (03/01/2024 1:00 AM EST) Specific [place] Urine 1.009 1.003 - 1.030 LAB URINALYSIS - AUTOMATED METHOD 03/01/2024 11:29 AM [facility] pH, Urine 5.5 5.0 - 8.0 pH LAB URINALYSIS - AUTOMATED METHOD 03/01/2024 11:29 AM [facility] Leukocytes, Urine Large(A) Negative LAB URINALYSIS - AUTOMATED METHOD 03/01/2024 11:29 AM [facility] Nitrite, Urine Negative Negative LAB URINALYSIS - AUTOMATED METHOD 03/01/2024 11:29 AM [facility] Protein, Urine Negative <=Trace mg/dL LAB URINALYSIS - AUTOMATED METHOD 03/01/2024 11:29 AM [facility] Glucose, Urine Negative Negative mg/dL LAB URINALYSIS - AUTOMATED METHOD 03/01/2024 11:29 AM [facility] Ketones, Urine Negative Negative mg/dL LAB URINALYSIS - AUTOMATED METHOD 03/01/2024 11:29 AM [facility] Urobilinogen, Urine 0.2 0.2 - 1.0 mg/dL LAB URINALYSIS - AUTOMATED METHOD 03/01/2024 11:29 AM [facility] Bilirubin, Urine Negative Negative LAB URINALYSIS - AUTOMATED METHOD 03/01/2024 11:29 AM [facility] Blood, Urine Negative Negative LAB URINALYSIS - AUTOMATED METHOD 03/01/2024 11:29 AM [facility] RBC, Urine 1.0 0 - 4 /HPF LAB URINALYSIS - AUTOMATED METHOD 03/01/2024 11:29 AM [facility] WBC, Urine 152.9(H) 0 - 4 /HPF LAB URINALYSIS - AUTOMATED METHOD 03/01/2024 11:29 AM [facility] Squamous Epithelial, Urine 8 0 - 60 /LPF LAB URINALYSIS - AUTOMATED METHOD 03/01/2024 11:29 AM [facility] Bacteria, Urine Few(A) Negative /HPF LAB URINALYSIS - AUTOMATED METHOD 03/01/2024 11:29 AM [facility] Hyaline Casts, Urine 2.5 0 - 3 /LPF LAB URINALYSIS - AUTOMATED METHOD 03/01/2024 11:29 AM [facility] Urine Urine specimen obtained by clean catch procedure / Unknown Non-blood Collection / Unknown 03/01/2024 1:00 AM EST 03/01/2024 11:02 AM EST us John Paul Bass MD LAB URINE ORDERABLES Final Resul t [facility] [address] [place] [address], documented in this encounter Visit Diagnoses Diagnosis Urinary tract infection, site not specified documented in this encounter Care Teams Electrical Instrument Maker Relationship Specialty Start Date End Date John Paul Bass MD [address] [place] [address], [phone] PCP - General Family Medicine 02/14/24 documented as of this encounter
--- OUTSIDE RECORDS SUMMARY | 2024-07-17 08:58 | XMS_ITS | Encounter Summary ---
Author Organization [employer] Address [address] [facility] 7t [place] [address] Care Team Providers Care Balling Machine Operator Name Role Phone Sarai Trejo MD Primary Care Provider Encounter Details Date Type Department Care Team ([facility] st Contact Info) Description 01/29/[address] [facility] MED[facility] [address] [place], [place] [phone] Yoli Pardo MD [address] [place], [place] [phone] Social History Tobacco Use Types Packs/Day Years [...] Visit [facility] [address] [place] [address] Sarai Trejo MD [address] [place] [address] documented as of this encounter Goals Goal Patient Goal Type Associated Problems Recent Progress Patient-Stated? Author Blood Pressure < 140/90 Blood Pressure 115/70(2024 10:06 AM EDT) No Yury Bee, PharmD Hemoglobin A1c < 7 Result Component 7.7( 10:10 AM EDT) No Yury Bee PharmD documented as of this encounter Visit Diagnoses Not on filedocumented in this encounter Care Teams Balling Machine Operator Relationship Specialty Start Date End Date Sarai Trejo MD [address] [place] [address] PCP - General Family Medicine 03/22/18 documented as of this encounter
--- OUTSIDE RECORDS SUMMARY | 2024-07-17 08:58 | XMS_ITS | Encounter Summary ---
Author Organization [employer] Address [address] [facility] 7t [place] [address] Care Team Providers Care Supervisor [employer] Name Role Phone Sarai Trejo MD Primary Care Provider [phone] Encounter Details Date Type Department Care Team ([facility] st Contact Info) Description 02/26/2023 Orders Only [facility] [address] [place], [place] [phone] Sarai Trejo MD [address] [place], [place] [phone] Social History Tobacco Use Types Packs/Day Years [...] Description 09/21/2024 10:15 AM EDT Office Visit [facility] [address] [place] [address] Sarai Trejo MD [address] [place] [address] documented as of this encounter Goals Goal Patient Goal Type Associated Problems Recent Progress Patient-Stated? Author Blood Pressure < 140/90 Blood Pressure 115/70(2024 10:06 AM EDT) No Yury Bee, PharmD Hemoglobin A1c < 7 Result Component 7.7( 10:10 AM EDT) No Yury Bee PharmD documented as of this encounter Visit Diagnoses Not on filedocumented in this encounter Care Teams Supervisor [employer] Relationship Specialty Start Date End Date Sarai Trejo MD [address] [place] [address] PCP - General Family Medicine 03/22/18 documented as of this encounter
--- OUTSIDE RECORDS SUMMARY | 2024-07-17 08:58 | XMS_ITS | Clinical Summary ---
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 Normal Normal Per Provider HEALTH MAINTENANCE Final Result * (ABNORMAL) Lipid Panel with Reflex to Direct LDL (02/25/2023 10:43 AM EST) Triglycerides 135 <150 mg/dL [facility] Comment:Desirable Triglyceri de: less than 150 mg/dLBorderline High Triglyceride 150-199 mg/dLHigh Triglyceride: 200-499 mg/dLVery High Triglyceride: greater than or equal to 5OO mg/dL Cholesterol 141 <200 mg/dL [facility] Comment:Desirable Cholestero l: less than 200 mg/dLBorderline High Cholesterol: 200-239 mg/dLHigh Cholesterol: greater than 239 mg/dL LDL Cholesterol Calculated 77 <100 mg/dL [facility] Comment:Desirable LDL: less than 100 mg/dLNear Optimal/Above Optimal LDL: 110- 129 mg/dLBorderline High LDL: 130-159 mg/dLHigh LDL: 160-189 mg/dLVery High LDL: greater than or equal to 190 mg/dL HDL Cholesterol 37(L) >40 mg/dL [facility] Comment:Desirable HDL: great er than 40 mg/dL Note: This HDL assay may give artificially low results in patients with liver disease. Blood 02/25/2023 10:4 3 AM EST 02/25/2023 10:45 AM EST Sarai Trejo MD LAB BLOOD ORDERABLES Final Resul t [facility] [address] [place] [phone] * (ABNORMAL) Albumin, Random Urine W/Creatinine (02/15/2023 1:46 PM EST) Creatinine, Urine 52.99 mg/dL [facility] Microalbumin Urine 23.0 mg/L H [facility] Microalbum Creatinine Ratio Ur 43.4(H) <30 ug/mg cr [facility] Comment:Albumin/Creatinine R atio Reference Ranges: Normal: < 30 ug/mg creatinine Microalbuminuria: 30 - 300 ug/mg creatinineClinical Albuminuria: > 300 ug/mg creatinine Urine 02/15/2023 1:46 PM EST 02/15/2023 2:51 PM EST us Sarai Trejo MD LAB URINE ORDERABLES Final Resul t [facility] [address] [place] [phone] from Last 3 Months or Most Recently Relevant to Health Maintenance Insurance [employer] Care Teams Pit Furnace Melter Relationship Specialty Start Date End Date Sarai Trejo MD [address] [place] [phone] PCP - General Family Medicine 03/22/18
--- OUTSIDE RECORDS SUMMARY | 2024-07-17 08:58 | XMS_ITS | Encounter Summary ---
Author Organization [facility] Address [address] [place] [address] Care Team Providers Care Psychotherapist Social Worker Name Role Phone John Paul Bass MD Primary Care Provider [phone] Encounter Details Date Type Department Care Team (Late st Contact Info) Description 02/18/2024 Lab Requisition [facility] - Main Lab [address] [place] [address] John Paul Bass MD [address] [facility] 204 [facility] [address] Chronic kidney disease, unspecified; Anemia, unspecified [...] LAB CHEMISTRY METHOD 02/21/2024 9:18 AM EST [facility] Potassium 4.5 3.5 - 5.5 mmol/L LAB CHEMISTRY METHOD 02/21/2024 9:18 AM [facility] Chloride 103 96 - 110 mmol/L LAB CHEMISTRY METHOD 02/21/2024 9:18 AM [facility] CO2 30 21 - 32 mmol/L LAB CHEMISTRY METHOD 02/21/2024 9:18 AM [facility] Anion Gap 5 3 - 11 LAB CHEMISTRY METHOD 02/21/2024 9:18 AM [facility] Glucose 235(H) 70 - 100 mg/dL LAB CHEMISTRY METHOD 02/21/2024 9:18 AM [facility] BUN 57(H) 5 - 25 mg/dL LAB CHEMISTRY METHOD 02/21/2024 9:18 AM [facility] Creatinine 1.66(H) 0.50 - 1.10 mg/dL LAB CHEMISTRY METHOD 02/21/2024 9:18 AM [facility] eGFR 31(L) >=60 mL/min/1. 73m2 LAB CHEMISTRY METHOD 02/21/2024 9:18 AM [facility] Comment:Calculation based on the??Chronic Kidney Disease Epidemiology Collaboration (CKD-EPI) equation refit??without adjustment for race. BUN/Creatinine Ratio 34.3 LAB CHEMISTRY METHOD 02/21/2024 9:18 AM [facility] Calcium 9.2 8.5 - 10.5 mg/dL LAB CHEMISTRY METHOD 02/21/2024 9:18 AM [facility] Blood Venous blood specimen / Unknown Venipuncture / Unknown 02/21/2024 4:55 AM EST 02/21/2024 8:09 AM EST us John Paul Bass MD LAB BLOOD ORDERABLES Final Resul t [facility] [address] [place] [address], * (ABNORMAL) Complete blood count (02/21/2024 4:55 AM EST) [facility] WBC 5.9 4.8 - 10.8 K/mcL LAB HEMETOLOGY METHOD 02/21/2024 8:34 AM [facility] RBC 4.20 3.80 - 4.80 M/mcL LAB HEMETOLOGY METHOD 02/21/2024 8:34 AM [facility] Hemoglobin 11.0(L) 11.5 - 16.0 g/dL LAB HEMETOLOGY METHOD 02/21/2024 8:34 AM [facility] Hematocrit 38.0 35.0 - 47.0 % LAB HEMETOLOGY METHOD 02/21/2024 8:34 AM [facility] MCV 90.7 79.0 - 98.0 FL LAB HEMETOLOGY METHOD 02/21/2024 8:34 AM [facility] MCH 26.3(L) 27.0 - 32.0 pcg LAB HEMETOLOGY METHOD 02/21/2024 8:34 AM [facility] MCHC 28.9(L) 32.0 - 37.0 g/dL LAB HEMETOLOGY METHOD 02/21/2024 8:34 AM [facility] RDW 17.4(H) 11.0 - 15.0 % LAB HEMETOLOGY METHOD 02/21/2024 8:34 AM [facility] Platelets 305 130 - 400 K/mcL LAB HEMETOLOGY METHOD 02/21/2024 8:34 AM [facility] MPV 11.5(H) 7.0 - 11.0 FL LAB HEMETOLOGY METHOD 02/21/2024 8:34 AM [facility] NRBC 0.0 <1.0 % LAB HEMETOLOGY METHOD 02/21/2024 8:34 AM [facility] NRBC Absolute 0.00 <0.10 K/mcL LAB HEMETOLOGY METHOD 02/21/2024 8:34 AM EST [facility] Blood Venous blood specimen / Unknown Venipuncture / Unknown 02/21/2024 4:55 AM EST 02/21/2024 8:09 AM EST us John Paul Bass MD LAB BLOOD ORDERABLES Final Resul t [facility] [address] [place] [address], documented in this encounter Visit Diagnoses Diagnosis Chronic kidney disease, unspecified Anemia, unspecified documented in this encounter Care Teams Psychotherapist Social Worker Relationship Specialty Start Date End Date John Paul Bass MD [address] [place] [address], [phone] PCP - General Family Medicine 02/14/24 documented as of this encounter
--- OUTSIDE RECORDS SUMMARY | 2024-07-17 08:58 | XMS_ITS | Encounter Summary ---
Author Organization [employer] Address [address] [place] [address] Care Team Providers Care Cdc Associate Name Role Phone Sarai Trejo MD Primary Care Provider [phone] Encounter Details Date Type Department Care Team (Late st Contact Info) Description 12/11/2022 Orders Only [facility] [address] [place], [place] [phone] Sarai Trejo MD [address] [place], [place] [phone] Chronic intractable headache, unspecified headache type (Primary Dx); Female stress incontinence; Primary hypertension; Type 2 diabetes mellitus without complication, without long-term current use of insulin ([facility]); Weight loss; Postoperative hypothyroidism Social History Tobacco [...] Description 09/21/2024 10:15 AM EDT Office Visit [facility] [address] [place], [place] [phone] Sarai Trejo MD [address] [place] [address] [place] [address] Scheduled Orders Name Type Priority Associated Diagnoses Orde r Schedule Vitamin B12/Folate, Serum Panel Lab Routine Type 2 diabetes mellitus without complication, without long-term current use of insulin ([facility]) Expected: 12/11/2022 (Approximate), Expires: 12/12/2023 Albumin, Random [...] complication, without long-term current use of insulin ([facility]) Expected: 12/11/2022 (Approximate), Expires: 12/12/2023 Lipid Panel with Reflex to Direct LDL Lab Routine Type 2 diabetes mellitus without complication, without long-term current use of insulin ([facility]) Expected: 12/11/2022 (Approximate), Expires: 12/12/2023 TSH [...] EDT Narrative 12/24/2022 11:33 AM EDT ? [facility] ? [address] ?[place] [address] ? Mammography Report ? Signed ? Patient: Kuldeep Doshi,Aaliyah I ?MR#: ?? [id number] ? : 1945 ?Acct:[id number] ? Age/Sex: 77 / F ?ADM Date: 12/23/22 ? Loc: HO.MAMMO ? Attending Dr: Sarai Trejo MD ? Ordering Physician: Sarai Trejo MD ?Results: ? Date of Service: 12/23/22 ?Follow Up: ? Procedure(s): XR DEXA axial skeleton ?? Accession Number(s): [id number] ? cc: Sarai Trejo MD ? EXAMINATION: ?? BONE DENSITOMETRY ? CLINICAL INDICATION: ?? Osteopenia. Bisphosphonate treatment. ? COMPARISON: ?? Previous BD dated 09/05/2020 and baseline BD dated 01/28/2007. ? TECHNIQUE: Using a [employer] DXA System (software version: ?? 13.1) manufactured by [employer], dual-energy x-ray absorptiometry ?? was performed of [...] 1129 ? DD/ 1055 ? TD/TT: ? Lehr Stripper: DB ? Procedure Note Aristeojanene, Image - 12/24/2022 [place] [facility] [address] [place], [place] [address] Mammography Report Signed Patient: aAliyah Brennan [facility]#: [id number] : 5Acct:[id number] Age/Sex: 77 / FADM Date: 12/23/22 Loc: J[facility] Attending Dr: Sarai Trejo MD Ordering Physician: Sarai Trejoesults: Date of Service: 12/23/22Follow Up: Procedure(s): XR DEXA axial skeleton Accession Number(s): [id number] cc: Sarai Trejo MD EXAMINATION: BONE DENSITOMETRY CLINICAL INDICATION: Osteopenia. Bisphosphonate treatment. COMPARISON: Previous BD dated 09/05/2020 and baseline BD dated 01/28/2007. TECHNIQUE: Using a [employer] DXA System (software version: 13.1) manufactured by [employer], dual-energy x-ray absorptiometry was performed of the [...] in OV> 12/24/22 1129 DD/ 1055 TD/TT: Lehr Stripper: DB Sarai Trejo MD IMG XR PROCEDURES Edited Result - Final documented in this encounter Visit Diagnoses Diagnosis Chronic intractable headache, unspecified headache type- Primary Female stress incontinence Primary hypertension Unspecified essential hypertension Type 2 diabetes mellitus without complication, without long-term current use of insulin ([facility]) Weight loss Loss of weight Postoperative hypothyroidism Postsurgical hypothyroidism documented in this encounter Care Teams Cdc Associate Relationship Specialty Start Date End Date Sarai Trejo MD [address] [place] [address] PCP - General Family Medicine 03/22/18 documented as of this encounter
--- OUTSIDE RECORDS SUMMARY | 2024-07-17 08:58 | XMS_ITS | Encounter Summary ---
Author Organization [facility], Address [address] [place] [address] Phone Care Team Providers Care Nougat Cutter Machine Name Role Phone Abhishek Vergara MD Primary Care Provider [phone] Encounter Details Date Type Department Care Team (Late st Contact Info) Description 06/23/2022 Documentation Only [facility], [address] [place] [address] Abhishek Vergara MD [address] [place] [address] Social History Tobacco Use Types Packs/Day Years [...] on filedocumented in this encounter Care Teams Nougat Cutter Machine Relationship Specialty Start Date End Date Abhishek Vergara MD [address] [place] [address] PCP - General 04/01/20 documented as of this encounter
--- OUTSIDE RECORDS SUMMARY | 2024-07-17 08:58 | XMS_ITS ---
Author Organization [facility] Care Team Providers Care Packaging Sales Name Role Phone Devika Recio Unavailable Unavailable Navi Vanessa Unavailable Unavailable Sandra Abrams Unavailable Unavailable Vivi Richardson Unavailable Unavailable Bari Juarez Unavailable Unavailable Allergies and adverse reactions Code CodeSystem Substance Reaction Severity StartDate Concern Status 20151 RXNORM sulfADIAZINE Moderate 07/07/[address] Seafood Unknown 07/07/2023 active 4053 RXNORM Erythromycin Moderate 07/07/2023 active Care Team Name Role Address Phone Organization Dates Navi Vanessa PCP [address] [facility] [address], [place], [address], [place] (Office): [facility] 07/07/2023 - 07/15/2023 Devika Recio Attending Physician [address] [facility] [address], [place], [address], [place] (Office): [facility] 07/07/2023 - 07/15/2023 Sandra Abrams Attending Physician [address] [facility] [address], [place], [address], [place] (Office): [facility] 07/07/2023 - 07/15/2023 Vivi Richardson Attending Physician [address] [place], [address], [place] (Office): [facility] 07/07/2023 - 07/15/2023 Bari Juarez Attending Physician [address] [place] [address], [address], [place] (Office): : [facility] 07/07/2023 - 07/15/2023 Immunizations Immunization Status Vaccine Details Vaccine Code CodeSystem Date Notes Pneumococcal Conjugate Vaccine (PCV13) completed pneumococcal conjugate vaccine, 13 valent 133 CVX created date: 07/14/2023 administere d date: 04/30/2017 Pneumococcal Polysaccharide Vaccine (PPSV23) completed pneumococcal polysaccharide vaccine, 23 valent 33 CVX created date: 07/14/2023 administere d date: 07/28/2010 Prevnar 20 Pneumococcal conjugate (PCV20) completed Pneumococcal conjugate vaccine 20-valent (PCV20), polysaccharide [id number] conjugate, adjuvant, preservative free 216 CVX created date: 07/14/2023 administere d date: 03/09/2023 Influenza vaccine, quadrivalent, adjuvanted completed Influenza, adjuvanted, inactivated, quadrivalent, injectable, preservative free 205 CVX created date: 07/14/2023 administere d date: 03/09/2023 COVID-19, mRNA, LNP-S, bivalent, PF, 30 mcg/0.3 mL dose completed SARS-COV-2 (COVID-19) vaccine, mRNA, spike protein, LNP, bivalent, preservative free, 30 mcg/0.3 mL dose, emir-sucrose formulation 300 CVX created date: 07/14/2023 administere d date: 12/30/2021 COVID-19, mRNA, LNP-S, bivalent, PF, 30 mcg/0.3 mL dose completed SARS-COV-2 (COVID-19) vaccine, mRNA, spike protein, LNP, bivalent, preservative free, 30 mcg/0.3 mL dose, emir-sucrose formulation 300 CVX created date: 07/14/2023 administere d date: 01/07/2021 COVID-19, mRNA, LNP-S, bivalent, PF, 30 mcg/0.3 mL dose completed SARS-COV-2 (COVID-19) vaccine, mRNA, spike protein, LNP, bivalent, preservative free, 30 mcg/0.3 mL dose, emir-sucrose formulation 300 CVX created date: 07/14/2023 administere d date: 05/17/2020 COVID-19, mRNA, LNP-S, bivalent, PF, 30 mcg/0.3 mL dose completed SARS-COV-2 (COVID-19) vaccine, mRNA, spike protein, LNP, bivalent, preservative free, 30 mcg/0.3 mL dose, emir-sucrose formulation 300 CVX created date: 07/14/2023 administere d date: 04/26/2020 Mental Status Section Date Assessment Total Score Description 07/15/2023 BIMS 15 cognitively int act CAM 0 No delirium ind icated PHQ-9 00 07/13/2023 BIMS 13 cognitively int act CAM 0 No delirium ind icated PHQ-9 08 mild depression Problems Problem # Description Date of onset Resolved Date Code CodeSystem Concern Status 1 ACUTE PULMONARY EDEMA 07/07/[address] active 2 ACUTE RESPIRATORY FAILURE WITH HYPOXIA 07/07/[address] active 3 ACUTE SYSTOLIC (CONGESTIVE) HEART FAILURE 07/07/[address] active 4 ANEMIA, UNSPECIFIED 07/07/[address] active 5 CARDIOGENIC SHOCK 07/07/[address] active 6 CARDIOGENIC SHOCK 07/07/1907/07/[address] completed 7 CHRONIC ATRIAL FIBRILLATION, UNSPECIFIED 07/07/[address] active 8 CHRONIC KIDNEY DISEASE, STAGE 3 UNSPECIFIED 07/07/[address] active 9 CONSTIPATION, UNSPECIFIED 07/07/[address] active 10 DIFFICULTY IN WALKING, NOT ELSEWHERE CLASSIFIED 07/07/[address] active 11 DILATED CARDIOMYOPATHY 07/07/[address] active 12 ESSENTIAL (PRIMARY) HYPERTENSION 07/07/[address] active 13 HYPERLIPIDEMIA, UNSPECIFIED 07/07/[address] active 14 HYPOTENSION, UNSPECIFIED 07/07/[address] active 15 NEED FOR ASSISTANCE WITH PERSONAL CARE 07/07/[address] active 16 OCCLUSION AND STENOSIS OF UNSPECIFIED CAROTID ARTERY 07/07/[address] active 17 PERIPHERAL VASCULAR DISEASE, UNSPECIFIED 07/07/[address] active 18 PRESENCE OF CARDIAC AND VASCULAR IMPLANT AND GRAFT, UNSPECIFIED 07/07/[address] active 19 SEVERE SEPSIS WITH SEPTIC SHOCK 07/07/[address] active 20 SEVERE SEPSIS WITH SEPTIC SHOCK 07/07/1907/07/[address] completed 21 STRESS INCONTINENCE (FEMALE) (MALE) 07/07/[address] active 22 TYPE 2 DIABETES MELLITUS WITH DIABETIC CHRONIC KIDNEY DISEASE 07/07/[address] active 23 URINARY TRACT INFECTION, SITE NOT SPECIFIED 07/07/[address] active Reason for Referral No Reasons for Referral Entered Social History Social History Observation Description Start Date End Date Code Code System Current Smoking Status Tobacco smoking consumption unknown 896854749 SNOMED CT Sex Assigned At Female 1945 [address]-5 [facility] Vital Signs Code Code System Vitals Name Values and Units Timing Information 2339-0 [facility] Blood Sugar Cgjwy=924.0 Units=mg/dL 07/15/2023 03508-1 [facility] Weight Nfajy=952.5 Units=Lbs 9279-1 [facility] Respiratory Rate Value=20.0 Units=/m in 07/15/2023 8462-4 [facility] Blood Pressure-Diastolic Value=50 Un its=mmHg 07/15/2023 8480-6 [facility] Blood Pressure-Systolic Hbpgi=863 Un its=mmHg 07/15/2023 8310-5 [facility] Body Temperature Value=98.4 Units=?? F 07/15/2023 8867-4 [facility] Heart rate Value=74.0 Units=/min 29199-3 [facility] O2 % BldC Oximetry Value=94.0 Units= % 07/15/2023 95675-3 [facility] Pain Level Value=0.0 07/15/2023 8302-2 [facility] Height Value=62.0 Units=Inches 07/08/2023
--- OUTSIDE RECORDS SUMMARY | 2024-07-17 08:58 | XMS_ITS | Encounter Summary ---
Author Organization [employer] Address [address] [facility] [address] [place] [address] Care Team Providers Care Ferris Wheel Operator Name Role Phone Sarai Trejo MD Primary Care Provider [phone] Reason for Visit * Reason Onset Date Comments HDF 07/03/2022 Encounter Details Date Type Department Care Team ([facility] st Contact Info) Description 07/03/2022 Telephone [facility] [address] [place], [place] [phone] Sarai Trejo MD [address] [place], [place] [phone] HDF Social History Tobacco Use Types Packs/Day [...] HDF F/U (no symptoms) Patient hospitalized at [facility]. Patient was admitted on 06/30/2022 and discharged on 07/02/2022 . The patient was diagnosed with Pulmonary. Patient advised will forward to [facility] Clinical Coordinators for follow up and appointment scheduling. Please contact pt at [phone] maltese Speaker documented in this encounter Plan of Treatment Upcoming Encounters Date Type Department Care Team (Late st Contact Info) Description 09/21/2024 10:15 AM EDT Office Visit [facility] [address] [place] [address] Sarai Trejo MD [address] [place] [address] documented as of this encounter Visit Diagnoses Not on filedocumented in this encounter Care Teams Ferris Wheel Operator Relationship Specialty Start Date End Date Sarai Trejo MD [address] [place] [address] PCP - General Family Medicine 03/22/18 documented as of this encounter
--- OUTSIDE RECORDS SUMMARY | 2024-07-17 08:58 | XMS_ITS | Encounter Summary ---
Author Organization [facility] Address [address] [place] [address] Care Team Providers Care Metal Hanger Name Role Phone John Paul Bass MD Primary Care Provider [phone] Encounter Details Date Type Department Care Team (Late st Contact Info) Description 02/14/2024 Lab Requisition [facility] - Main Lab [address] [facility] [place] [address] John Paul Bass MD 38 [facility] 204 [facility] [address] Type 2 diabetes mellitus without complications (CMS/HCC V24, CMS/HCC V28) Social History Tobacco Use Types Packs/Day Years [...] % LAB CHEMISTRY METHOD 02/14/2024 1:59 PM [facility] Mean Bld Glu Estim. 140 mg/dL LAB CHEMISTRY METHOD 02/14/2024 1:59 PM [facility] Blood Venous blood specimen / Unknown Venipuncture / Unknown 02/14/2024 6:29 AM EST 02/14/2024 9:47 AM EST us John Paul Bass MD LAB BLOOD ORDERABLES Final Resul t [facility] [address] [place] [address], [place] [phone] * (ABNORMAL) Comprehensive metabolic panel (02/14/2024 6:29 AM EST) [facility] Sodium 140 133 - 145 mmol/L LAB CHEMISTRY METHOD 02/14/2024 12:08 PM [facility] Potassium 5.0 3.5 - 5.5 mmol/L LAB CHEMISTRY METHOD 02/14/2024 12:08 PM [facility] Chloride 104 96 - 110 mmol/L LAB CHEMISTRY METHOD 02/14/2024 12:08 PM [facility] CO2 30 21 - 32 mmol/L LAB CHEMISTRY METHOD 02/14/2024 12:08 PM [facility] Anion Gap 6 3 - 11 LAB CHEMISTRY METHOD 02/14/2024 12:08 PM [facility] Glucose 137(H) 70 - 100 mg/dL LAB CHEMISTRY METHOD 02/14/2024 12:08 PM [facility] BUN 37(H) 5 - 25 mg/dL LAB CHEMISTRY METHOD 02/14/2024 12:08 PM [facility] Creatinine 1.33(H) 0.50 - 1.10 mg/dL LAB CHEMISTRY METHOD 02/14/2024 12:08 PM [facility] eGFR 41(L) >=60 mL/min/1. 73m2 LAB CHEMISTRY METHOD 02/14/2024 12:08 PM [facility] Comment:Calculation based on the??Chronic Kidney Disease Epidemiology Collaboration (CKD-EPI) equation refit??without adjustment for race. BUN/Creatinine Ratio 27.8 LAB CHEMISTRY METHOD 02/14/2024 12:08 PM [facility] Calcium 9.8 8.5 - 10.5 mg/dL LAB CHEMISTRY METHOD 02/14/2024 12:08 PM [facility] AST (SGOT) 21 10 - 42 unit/L LAB CHEMISTRY METHOD 02/14/2024 12:08 PM [facility] ALT (SGPT) 11 10 - 60 unit/L LAB CHEMISTRY METHOD 02/14/2024 12:08 PM [facility] Alkaline Phosphatase 110 42 - 121 unit/L LAB CHEMISTRY METHOD 02/14/2024 12:08 PM [facility] Total Protein 6.7 6.0 - 8.0 g/dL LAB CHEMISTRY METHOD 02/14/2024 12:08 PM [facility] Albumin 2.8(L) 3.2 - 5.0 g/dL LAB CHEMISTRY METHOD 02/14/2024 12:08 PM [facility] Total Bilirubin 0.6 0.0 - 1.4 mg/dL LAB CHEMISTRY METHOD 02/14/2024 12:08 PM [facility] Blood Venous blood specimen / Unknown Venipuncture / Unknown 02/14/2024 6:29 AM EST 02/14/2024 9:47 AM EST us John Paul Bass MD LAB BLOOD ORDERABLES Final Resul t [facility] [address] [place] [address], * (ABNORMAL) Complete blood count (02/14/2024 6:29 AM EST) [facility] WBC 6.6 4.8 - 10.8 K/mcL LAB HEMETOLOGY METHOD 02/14/2024 10:40 AM [facility] RBC 4.60 3.80 - 4.80 M/mcL LAB HEMETOLOGY METHOD 02/14/2024 10:40 AM [facility] Hemoglobin 11.9 11.5 - 16.0 g/dL LAB HEMETOLOGY METHOD 02/14/2024 10:40 AM [facility] Hematocrit 41.5 35.0 - 47.0 % LAB HEMETOLOGY METHOD 02/14/2024 10:40 AM [facility] MCV 91.0 79.0 - 98.0 FL LAB HEMETOLOGY METHOD 02/14/2024 10:40 AM [facility] MCH 26.1(L) 27.0 - 32.0 pcg LAB HEMETOLOGY METHOD 02/14/2024 10:40 AM [facility] MCHC 28.7(L) 32.0 - 37.0 g/dL LAB HEMETOLOGY METHOD 02/14/2024 10:40 AM [facility] RDW 18.0(H) 11.0 - 15.0 % LAB HEMETOLOGY METHOD 02/14/2024 10:40 AM [facility] Platelets 309 130 - 400 K/[facility] LAB HEMETOLOGY METHOD 02/14/2024 10:40 AM [facility] MPV 11.6(H) 7.0 - 11.0 FL LAB HEMETOLOGY METHOD 02/14/2024 10:40 AM [facility] NRBC 0.0 <1.0 % LAB HEMETOLOGY METHOD 02/14/2024 10:40 AM [facility] NRBC Absolute 0.00 <0.10 K/[facility] LAB HEMETOLOGY METHOD 02/14/2024 10:40 AM EST [facility] Blood Venous blood specimen / Unknown Venipuncture / Unknown 02/14/2024 6:29 AM EST 02/14/2024 9:47 AM EST us John Paul Bass MD LAB BLOOD ORDERABLES Final Resul t [facility] [address] [place] [address], documented in this encounter Visit Diagnoses Diagnosis Type 2 diabetes mellitus without complications (CMS/HCC V24, CMS/HCC V28) documented in this encounter Care Teams Metal Hanger Relationship Specialty Start Date End Date John Paul Bass MD [address] [place] [address], [phone] PCP - General Family Medicine 02/14/24 documented as of this encounter
--- OUTSIDE RECORDS SUMMARY | 2024-07-17 08:58 | XMS_ITS | Encounter Summary ---
Author Organization [employer] Address [address] [facility] [address] [place] [address] Care Team Providers Care Extruding Press Operator Name Role Phone Sarai Trejo MD Primary Care Provider [phone] Reason for Visit * Reason Comments Med Refill Encounter Details Date Type Department Care Team (Late st Contact Info) Description 03/28/2023 Refill [facility] [address] [place], [place] [phone] Sarai Trejo MD [address] [place], [place] [phone] Pain Social History Tobacco Use Types Packs/Day [...] Description 09/21/2024 10:15 AM EDT Office Visit [facility] [address] [place] [address] Sarai Trejo MD [address] [place] [address] documented as of this encounter Goals Goal Patient Goal Type Associated Problems Recent Progress Patient-Stated? Author Blood Pressure < 140/90 Blood Pressure 115/70(2024 10:06 AM EDT) No Yury Bee, PharmD Hemoglobin A1c < 7 Result Component 7.7( 10:10 AM EDT) No Yury Bee PharmD documented as of this encounter Visit Diagnoses Diagnosis Pain Generalized pain documented in this encounter Care Teams Extruding Press Operator Relationship Specialty Start Date End Date Sarai Trejo MD [address] [place] [address] PCP - General Family Medicine 03/22/18 documented as of this encounter
--- OUTSIDE RECORDS SUMMARY | 2024-07-17 08:58 | XMS_ITS | Encounter Summary ---
Author Organization 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
--- OUTSIDE RECORDS SUMMARY | 2024-07-17 08:58 | XMS_ITS | Encounter Summary ---
Author Organization [facility] Address [address] [place] [address] Care Team Providers Care Rabbit Breeder Name Role Phone John Paul Bass MD Primary Care Provider [phone] Encounter Details Date Type Department Care Team (Late st Contact Info) Description 02/26/[address] [facility] - Main Lab [address] [place] [address] John Paul Bass MD 38 [facility] 204 [facility] [address] Chronic kidney disease, unspecified; Anemia, unspecified [...] LAB CHEMISTRY METHOD 02/28/2024 10:07 AM EST [facility] Potassium 4.5 3.5 - 5.5 mmol/L LAB CHEMISTRY METHOD 02/28/2024 10:07 AM [facility] Chloride 102 96 - 110 mmol/L LAB CHEMISTRY METHOD 02/28/2024 10:07 AM [facility] CO2 31 21 - 32 mmol/L LAB CHEMISTRY METHOD 02/28/2024 10:07 AM [facility] Anion Gap 6 3 - 11 LAB CHEMISTRY METHOD 02/28/2024 10:07 AM [facility] Glucose 230(H) 70 - 100 mg/dL LAB CHEMISTRY METHOD 02/28/2024 10:07 AM [facility] BUN 53(H) 5 - 25 mg/dL LAB CHEMISTRY METHOD 02/28/2024 10:07 AM [facility] Creatinine 1.69(H) 0.50 - 1.10 mg/dL LAB CHEMISTRY METHOD 02/28/2024 10:07 AM [facility] eGFR 31(L) >=60 mL/min/1. 73m2 LAB CHEMISTRY METHOD 02/28/2024 10:07 AM [facility] LAB Comment:Calculation based on the??Chronic Kidney Disease Epidemiology Collaboration (CKD-EPI) equation refit??without adjustment for race. BUN/Creatinine Ratio 31.4 LAB CHEMISTRY METHOD 02/28/2024 10:07 AM [facility] Calcium 9.6 8.5 - 10.5 mg/dL LAB CHEMISTRY METHOD 02/28/2024 10:07 AM [facility] Blood Venous blood specimen / Unknown Venipuncture / Unknown 02/28/2024 5:23 AM EST 02/28/2024 9:12 AM EST us John Paul Bass MD LAB BLOOD ORDERABLES Final Resul t [facility] [address] [place] [address], * (ABNORMAL) Complete blood count (02/28/2024 5:23 AM EST) [facility] WBC 6.2 4.8 - 10.8 K/mcL LAB HEMETOLOGY METHOD 02/28/2024 9:43 AM [facility] RBC 4.50 3.80 - 4.80 M/mcL LAB HEMETOLOGY METHOD 02/28/2024 9:43 AM [facility] Hemoglobin 11.8 11.5 - 16.0 g/dL LAB HEMETOLOGY METHOD 02/28/2024 9:43 AM [facility] Hematocrit 40.5 35.0 - 47.0 % LAB HEMETOLOGY METHOD 02/28/2024 9:43 AM [facility] MCV 89.2 79.0 - 98.0 FL LAB HEMETOLOGY METHOD 02/28/2024 9:43 AM [facility] MCH 26.0(L) 27.0 - 32.0 pcg LAB HEMETOLOGY METHOD 02/28/2024 9:43 AM [facility] MCHC 29.1(L) 32.0 - 37.0 g/dL LAB HEMETOLOGY METHOD 02/28/2024 9:43 AM [facility] RDW 16.7(H) 11.0 - 15.0 % LAB HEMETOLOGY METHOD 02/28/2024 9:43 AM [facility] Platelets 273 130 - 400 K/mcL LAB HEMETOLOGY METHOD 02/28/2024 9:43 AM [facility] MPV 12.3(H) 7.0 - 11.0 FL LAB HEMETOLOGY METHOD 02/28/2024 9:43 AM [facility] NRBC 0.0 <1.0 % LAB HEMETOLOGY METHOD 02/28/2024 9:43 AM [facility] NRBC Absolute 0.00 <0.10 K/mcL LAB HEMETOLOGY METHOD 02/28/2024 9:43 AM EST [facility] Blood Venous blood specimen / Unknown Venipuncture / Unknown 02/28/2024 5:23 AM EST 02/28/2024 9:14 AM EST us John Paul Bass MD LAB BLOOD ORDERABLES Final Resul t [facility] [address] [place] [address], documented in this encounter Visit Diagnoses Diagnosis Chronic kidney disease, unspecified Anemia, unspecified documented in this encounter Care Teams Rabbit Breeder Relationship Specialty Start Date End Date John Paul Bass MD [address] [place] [address], [phone] PCP - General Family Medicine 02/14/24 documented as of this encounter
[2024-07-17 09:17] VITALS: BP 114/52; PULSE 79; BMI 28.9
--- NOTE | 2024-07-17 09:17 | MHC.OFFVIS ---
Vital Signs 07/17/24 09:17 Height 5 ft 3 in Weight 163 lb 2.2 oz BMI 28.9 BP 114/52 L Blood Pressure Location Lt brachial Position Sitting Pulse 79 Pulse Source Pulse Oximeter Intake Visit Reasons: 3 wk follow per KM Senior Network Architect Required: No Allergies white fish Allergy (Intermediate, Uncoded 07/17/24 09:21) body swelling, redness Medication List - Last Reconciled 07/17/24 by JOSELO Pimentel acetaminophen 1,000 mg PO Q8H PRN albuterol sulfate 1 amp inhalation Q4-6H PRN albuterol sulfate 90 mcg/actuation (ProAir HFA) 2 puffs inhalation Q4-6H PRN amlodipine 5 mg PO QAM aspirin 81 mg PO DAILY atorvastatin 40 mg PO BEDTIME blood sugar diagnostic ([employer] Ultra Test strips) As directed cetirizine 5 mg PO QAM cholecalciferol (vitamin D3) 25 mcg PO QAM duloxetine mg PO fluticasone propion-salmeterol 250-50 mcg/dose 1 ea PO BID furosemide (Lasix) 40 mg PO DAILY lancets (Watertronixuch Delica Plus Lancet) As directed levothyroxine 88 mcg PO DAILY@0600 magnesium oxide 400 mg PO Q OTHER DAY metformin ER 1,000 mg PO BID@1300,1900 metoprolol tartrate 25 mg PO BID 90 days montelukast 10 mg PO BEDTIME multivitamin (Multiple Vitamins tablet) 1 tab PO DAILY pantoprazole 40 mg PO DAILY piroxicam 10 - 20 mg PO QAM repaglinide 3 mg PO TID sennosides (senna) 8.6 mg PO BID PRN HPI HPI 3 wk follow per KM: Details: Aaliyah is a 78-year-old female with past medical history of hypertension, diabetes, COPD, cerebral aneurysm, prior nonischemic cardiomyopathy, who was noted to have increased shortness of breath and rales on exam last visit. A chest x-ray confirmed pulmonary vascular congestion. She was started on Lasix 40 mg daily. She now presents for follow-up. Today she reports that her breathing has been feeling good since her last visit. She is taking the water pill and it makes her urinate very frequently. She has notice some mild lightheadedness at times. She has unsteadiness with ambulation but no falls. No chest discomfort at rest or with activity. No PND, orthopnea or edema. Taking meds as directed. [facility] Medical History (Updated 07/17/24 @ 12:41 by Christie Mosley, SUPERVISOR PIPELINE-C) COPD (chronic obstructive pulmonary disease) Allergic rhinitis Venous insufficiency Hx of cardiomyopathy LBBB (left bundle branch block) Urge incontinence Brain aneurysm Back pain Restrictive airway disease Bronchial asthma Hemorrhoids Arthritis Depression Hypothyroidism Migraine headache Asthma Cubital tunnel syndrome Abdominal hyperesthesia Altered bowel habits Dyspepsia Gallstone pancreatitis Calculus of gallbladder Lipoma of other skin and subcutaneous tissue Hyperlipidemia DM II (diabetes mellitus, type II), controlled Rotator cuff tear arthropathy of right shoulder Subacromial impingement Subacromial bursitis Surgical History History of cardiac catheterization Hx of colonoscopy H/O craniotomy S/P surgical manipulation of knee joint History of shoulder surgery History of total right knee replacement History of total left knee replacement Family History Son Hypertension Brother Colon cancer Social History Household Members: None Housing: Apartment Are you a primary personal carer to a significant other at home: No Do you presently have visiting nurse or other home services: Yes Alcohol intake: never Patient Tobacco Use Status: Former Tobacco user Tobacco use type: Cigarette service: No Current occupational status: disabled Review of Systems Const All systems reviewed & are unremarkable except as noted in HPI and below ENT Denies dizziness Card Denies chest pain, Denies chest pain at rest, Denies chest pain with activity, Denies rapid heart rate, Denies pedal edema, Denies edema, Denies leg edema, Denies lightheadedness, Denies palpitations, Denies dyspnea, Denies dyspnea on exertion and Denies orthopnea Resp Denies cough, Denies dyspnea and Denies dyspnea on exertion GI Denies hematochezia and Denies change in stool character Musc Reports abnormal gait (uses walker), Reports limited range of motion, Denies muscle cramps, Denies muscle weakness, Denies numbness, Denies radiating pain into limb, Denies stiffness and Denies tingling Neuro Reports abnormal gait (uses walker), Denies dizziness, Denies numbness and Denies tingling Endo Denies palpitations Physical Exam Vital Signs: Last Vital Signs Pulse 79 07/17/24 09:17 BP 114/52 L 07/17/24 09:17 BMI result Body Mass Index 28.9 Const Other: ambulates slowly with wheeling walker General: cooperative, healthy appearing, comfortable and no acute distress Orientation/consciousness: patient oriented x3 Neck Neck: Yes normal visual inspection and Yes no JVD Resp Effort & Inspection: normal respiratory effort Auscultation: clear to auscultation bilaterally, no crackles, no rales, no rhonchi and no wheezes Cardio Rate: regular rate Rhythm: regular rhythm Heart sounds: S1 normal heart sound present, S2 normal heart sound present, no gallops, no murmurs and no rubs Neuro General: patient oriented x3 Extrem General: Yes normal to inspection and No no pedal edema Psych Appearance: grossly normal Mental Status: mental status grossly normal Speech and movement: Normal speech and movement present Assessment & Plan Assessment & Plan (1) Pulmonary vascular congestion: Code(s): R09.89 - Other specified symptoms and signs involving the circulatory and respiratory systems Category: Medical Plan: History of nonischemic cardiomyopathy with normalization of EF. Last echocardiogram 04/13/2023 showed EF 55-60%. A nuclear stress test had been done 11/09/2023 showing normal myocardial perfusion imaging. She was recently noted to have increased shortness of breath, chest x-ray with pulmonary vascular congestion. She was started on Lasix 40 mg daily and labs 06/25/2023 showed potassium 4.6, creatinine 0.66. She does not appear fluid overloaded on exam today. She has concerns about very frequent urination and mild lightheadedness. Will reduce her Lasix down to 20 mg daily. Will update echocardiogram to ensure that her EF remains normal. Plan to call her with results. Signs and symptoms of heart failure reviewed with her. Low-salt diet discussed. Cardiology follow-up 3 months, sooner if needed. (2) Hx of cardiomyopathy: Comment: Nonischemic Code(s): Z86.79 - Personal history of other diseases of the circulatory system Category: Medical Plan: As above (3) Dyspnea: Code(s): R06.00 - Dyspnea, unspecified Category: Medical Plan: Chronic shortness of breath with activity due to history of COPD. No clinical findings of decompensated heart failure on exam today. (4) LBBB (left bundle branch block): Code(s): I44.7 - Left bundle-branch block, unspecified Category: Medical Plan: Noted on EKGs, not new. Nuclear stress test was normal (5) Essential hypertension: Code(s): I10 - Essential (primary) hypertension Category: Medical Plan: Blood pressure goal less than 130/80. Well controlled at present. Continue metoprolol and amlodipine. (6) COPD (chronic obstructive pulmonary disease): Code(s): J44.9 - Chronic obstructive pulmonary disease, unspecified Category: Medical Plan: Follows with pulmonology. Plan Time spent on chart review, documentation, interview and assessment Orders: Orders CA echo transthoracic complete Today R09.89 - Other specified symptoms and signs involving the circulatory and respiratory systems, Z86.79 - Personal history of other diseases of the circulatory system Medications: New furosemide (Lasix) 20 mg PO DAILY 90 tabs 1RF Discontinued furosemide (Lasix) Discontinued Reason: Doctor's Order 40 mg PO DAILY 60 tabs 3RF Coding Level of Care Code Est Pt Level 4 (33764) Complex EM visit Add On G2211 Diagnoses Pulmonary vascular congestion R09.89 Hx of cardiomyopathy Z86.79 Dyspnea R06.00 LBBB (left bundle branch block) I44.7 Essential hypertension I10 COPD (chronic obstructive pulmonary disease) J44.9 Time Spent (min) 28
== END 2024-07-17 09:54 | disposition home or self-care (01) ==
LOC: HO.HCS 08:31
PROVIDERS: PCP Family Medicine; Visit Provider Nurse Practitioner Family
DX: R09.89 Other specified symptoms and signs involving the circulatory and respiratory systems (principal); Z86.79 Personal history of other diseases of the circulatory system; R06.00 Dyspnea, unspecified; I44.7 Left bundle-branch block, unspecified; I10 Essential (primary) hypertension; J44.9 Chronic obstructive pulmonary disease, unspecified
CPT/HCPCS: 99214; G2211

== ENCOUNTER → 2024-07-17 08:31 | Outpatient (BNVA) | payer OTHER, SELFPAY | PROVIDERS: PCP Family Medicine; Visit Provider Nurse Practitioner Family | DX: I44.7 Left bundle-branch block, unspecified (principal); I10 Essential (primary) hypertension; R09.89 Other specified symptoms and signs involving the circulatory and respiratory systems; R06.00 Dyspnea, unspecified; J44.9 Chronic obstructive pulmonary disease, unspecified; Z86.79 Personal history of other diseases of the circulatory system | CPT/HCPCS: 99212 ==

== ENCOUNTER → 2024-08-16 10:34 | Outpatient (REF) | payer OTHER, SELFPAY ==
--- NOTE | 2024-08-16 10:38 | CA_ITS ---
Transthoracic Echocardiogram Patient (Last, First, Middle): Aaliyah Brennan, Kimberly Gender: Female Date of : 1945 Age: 78 Procedure Date: 08/16/2024 Procedure Type: Transthoracic Echocardiogram Location: OP Height: 160.02 cm Weight: 73.94 kg BSA: 1.77 m2 Heart Rate: bpm BP: 116 / 56 mmHg Maintenance Scheduler: TO/RC Referring MD: Christie Mosley WELDER MANUFACTURESherwin Symptoms: R09.89 - Other specified symptoms and signs involving the circulatory an... Study Quality: Fair Conclusions: - 1. Low normal LV ejection fraction 50-55% with impaired relaxation filling pattern 2. Cardiac valvular Dopplers within normal limits 3. Mildly dilated ascending aorta 3.8 cm 4. No gross pericardial effusion Findings Procedure Information The study quality is limited by the patients inability to tolerate the test. Left Ventricle Normal left ventricular cavity size. There is normal left ventricular wall thickness. The left ventricular systolic function is low normal. The visually estimated ejection fraction is between 50-55%. There is paradoxical septal motion consistent with a left bundle branch block. Spectral Doppler is indicative of an impaired relaxation filling pattern. E/E prime ratio is between 8 and 15 consistent with indeterminate filling pressures. Right Ventricle Normal right ventricular cavity size and systolic function. Atria Both atria are normal in size. Aortic Valve Normal aortic valve structure and function. There is no aortic valve stenosis. There is no aortic valve regurgitation. Mitral Valve Normal mitral valve structure and function. There is trace mitral valve regurgitation. There is no mitral valve stenosis. Pulmonic Valve The pulmonic valve is likely normal. Tricuspid Valve Likely normal tricuspid valve structure and function. Tricuspid regurgitation envelope is inadequate for calculation of right ventricular systolic pressure. Normal right atrial pressure. Great Vessels The pulmonary artery was not well visualized. There is mild dilatation of the ascending aorta measuring 3.80 cm. Venous The inferior vena cava is normal in size and collapses greater than 50% with inspiration. Pericardium/Pleural There is no evidence of pericardial effusion. Prior Study Comparison Changes noted compared to prior study dated: 04/13/2023. LV ejection fraction has marginally reduced Measurements 2D Linear Measurements IVSd: 1.15 0.6-0.9/0.6-1.0 cm LVIDd: 3.84 3.9-5.3/4.2-5.9 cm LVIDd Index: 2.17 2.4-3.2/2.2-3.1 cm/m2 LVIDs: 2.84 2.0-3.6 cm LVPWd: 0.81 0.7-1.1 cm LA Diam: 3.40 2.7-3.8/3.0-4.0 cm LAIDs Index: 1.92 1.5-2.3 cm/m2 LV Mass: 144.24 67-162/88-224 g LV Mass Index: 81.49 43-95/49-115 g/m2 LVOT Diam: 2.30 3.0+(-)1.3 cm 2D Systolic Function EF 4C: 47.80 >55% EF 2C: 55.00 >55% EF BiP: 50.30 >55% Mitral Valve MV Pk E: 0.45 MV PK A: 0.69 MV Decel Time: 147.00 E/A: 0.70 E'Lateral: 8.16 E'Medial: 4.35 E/E' Med: 10.40 E/E' Lat: 5.60 PHT: 43.00 MVA PHT: 5.12 Decel [place]: 3.09 Aortic Valve AoV Pk Abel: 1.16 AoV Mn Abel: 0.85 AoV VTI: 0.23 AoV Pk Grad: 5.00 Aov Mn Grad: 3.00 FARTUN Cont.VTI: 3.35 LVOT LVOT Pk Abel: 0.89 LVOT Mn Abel: 0.59 LVOT VTI: 0.19 LVOT Pk Grad: 3.00 LVOT Mn Grad: 2.00 LVOT Diam: 2.30 LVOT Area: 4.15 Diastolic Function MV Pk E: 0.45 MV Pk A: 0.69 E/A: 0.70 E'Medial: 4.35 E/E' Med: 10.40 E' Laterial: 8.16 E/E' Lat: 5.60 Right Ventricle TAPSE (mm): 17.10 TVS' Abel: 9.79 Tricuspid Valve RA Press: 3.00 Great Vessels Aorta Sinus of Valsalva: 3.70 2.0-3.5 cm Ao Asc: 3.80 2.1-3.4 cm Pulmonary Valve PV Pk Abel: 0.83 Peak PV Grad: 3.00 Updated in Other Vendor System with Status of Final Fausto Sonja MD electronically signed on 08/17/2024 12:04:26 PM with status of Final
--- OUTSIDE RECORDS SUMMARY | 2024-08-16 11:37 | XMS_ITS | Data Portability ---
Author Organization [facility], Main Office Address [address], [address] [place] [address] Care Team Providers Care Manager Provider Relations Name Role Phone MARGARETH FUENTES - 2ND [...] Address Organization Details Recorded Time Recurrent falls 585213336 Active 2023 Cleo De La Paz NP [address] [facility], [address], [place], [address], [facility] 14:23:46 Asthenia 88800940 Active 2023 Cleo De La Paz NP [address] [facility], [address], [place], [address], [facility] 14:23:52 Anemia 214018289 Active 2023 Cleo De La Paz NP [address] [facility], [address], [place], [address], [facility] 14:23:59 Atrial flutter 1371501 Active 2023 Cleo De La Paz NP [address] [facility], [address], [place], [address], [facility] 14:24:25 Dementia 40721158 Active 2023 Cleo De La Paz NP [address], [address], [place], [address], [facility] 4 14:24:42 Type 2 diabetes mellitus 98323795 Active 2023 Cleo De La Paz NP [address], [address], [place], [address], [facility] 4 14:25:01 Depressive disorder 15839541 Active 2023 Cleo De La Paz NP [address], [address], [place], [address], [facility] 4 14:25:09 Fracture of multiple ribs 3467331 Active 2023 Cleo De La Paz NP [address], [address], [place], [address], [facility] 4 19:03:44 Peripheral vascular disease 308204635 Active 2023 Cleo De La Paz NP [address], [address], [place], [address], [facility] 4 19:04:26 Congestive heart failure 77658081 Active 2023 Cleo De La Paz NP [address], [address], [place], [address], [facility] 4 19:04:45 Hypertensive disorder 77984458 Active 2023 Cleo De La Paz NP [address], [address], [place], [address], [facility] 4 19:05:00 Hyperlipidemia 10444053 Active 2023 Cleo De La Paz NP [address], [address], [place], [address], [facility] 4 19:19:08 Seasonal allergy 460438124 Active 2023 Cleo De La Paz NP [address], [address], [place], [address], [place] [facility] 4 19:25:46 Urinary tract infectious disease 54235923 Active 2023 Jane Anderson MD [address] [facility], [address], [place], [address], [facility] 4 14:37:32 Problem Notes None recorded. Medical Equipment None Reported. Allergies Allergen ID Allergen Name Allergen Category Reaction Reaction Severity Criticality Documentation Date Start Date Code Code System Note Provider Name and Address Organization Details Recorded Time 91562 erythromy ashley medicatio n other Not available unabletoasse 02/09/2024 4053 RxNorm unkno wn Cleo De La Paz NP [address] [facility], [address], [place], [address], [facility] 4 14:20:30 59842 Substance with sulfonami de structure and antibacte rial mechanism of action (substanc e) medicatio n other Not available unabletoasse 02/09/2024 02546 8003 SNOMED unkno wn Cleo De La Paz NP [address] [facility], [address], [place], [address], [facility] 4 14:20:51 04223 lactose food,medi cation other Not available unabletoasse 02/09/2024 6211 RxNorm unkno wn Cleo De La Paz NP [address] [facility], [address], [place], [address], [facility] 4 14:21:10 88237 shellfish derived food,medi cation other Not available unabletoasse 02/09/2024 68204 UNK seafo od Cleo De La Paz NP [address] [facility], [address], [place], [address], [facility] 4 14:21:41 Vitals Date Recorded Heart rate Respiratory rate Body temperature Oxygen saturation Oxygen saturation in Arterial blood by Pulse oximetry Systolic blood pressure Diastolic blood pressure Provider Name and Address Organization Details Last Updated DateTime 4 68 /min 17 /min 97.6 [degF] 94 % 94 % 104 mm[Hg] 78 mm[Hg] Cleo De La Paz NP [address] [facility], [address], [place], [address], [facility] 4 14:22:12 Date Recorded Heart rate Respiratory rate Body temperature Oxygen saturation Oxygen saturation in Arterial blood by Pulse oximetry Systolic blood pressure Diastolic blood pressure Provider Name and Address Organization Details Last Updated DateTime 4 72 /min 16 /min 97.3 [degF] 92 % 92 % 104 mm[Hg] 74 mm[Hg] Cleo De La Paz NP [address] [facility], [facility] [address], [place], [address], [facility] 4 09:54:01 Date Recorded Heart rate Respiratory rate Body temperature Oxygen saturation Oxygen saturation in Arterial blood by Pulse oximetry Body weight Body mass index (BMI) Body height Systolic blood pressure Diastolic blood pressure Provider Name and Address Organization Details Last Updated DateTime 4 72 /min 18 /min 98.7 [degF] 96 % 96 % 43239.0 5 g 25.2 kg/m2 149.86 cm 104 mm[Hg] 74 mm[Hg] Jane Anderson MD [address] [facility] [address], [place], [address], [facility] 4 17:40:16 Date Recorded Body height Heart rate Respiratory rate Body temperature Oxygen saturation Oxygen saturation in Arterial blood by Pulse oximetry Body mass index (BMI) Body weight Systolic blood pressure Diastolic blood pressure Provider Name and Address Organization Details Last Updated DateTime 4 149.86 cm 76 /min 16 /min 97 [degF] 97 % 97 % 24 kg/m2 86312.4 9 g 142 mm[Hg] 81 mm[Hg] Jane Anderson MD [address] [facility] [address], [place], [address], [facility] 4 20:59:29 Date Recorded Body height Body weight Body mass index (BMI) Heart rate Respiratory rate Body temperature Oxygen saturation Oxygen saturation in Arterial blood by Pulse oximetry Systolic blood pressure Diastolic blood pressure Provider Name and Address Organization Details Last Updated DateTime 4 149.86 cm 23188.0 8 g 24.2 kg/m2 76 /min 16 /min 97.7 [degF] 97 % 97 % 142 mm[Hg] 81 mm[Hg] Cleo De La Paz NP [address] [facility] [address], [place], [address], [facility] 4 09:24:10 Social History Question Answer Notes LastModified by Organizat ion Details LastModified Time Tobacco Smoking Status Never Smoker Cleo De La Paz, [place]TE [address] [facility], [address], [place], [address], [facility] 02/09/2024 18:41:14 Do You Have An Advance Directive? Yes Information not available 02/15/2024 What Is Your Code Status? DNR/DNI Information not available 02/15/2024 Where Do You Live? Apartment Information not available 02/09/2024 Legal Guardian? No Informati on not available 02/15/2024 Do You Have A Medical Power Of Certified Medical Technician Assistant? Yes Invoked Information not available 02/15/2024 What Was The Date Of Your Most Recent Tobacco Screening? 02/09/2024 Information not available 02/09/2024 Do You Have An Out Of Hospital DNR? Yes Information not available 02/15/2024 What Is Your Relationship Status? Information not available 02/09/2024 Has Tobacco Cessation Counseling Been Provided? No Information not available 02/09/2024 Sex: Unknown Functional Status Question Answer Note LastModified by Organizat ion Details LastModified Time Do you use any illicit or recreational drugs? No Information not available 02/09/2024 Do you or have you ever used any other forms of tobacco or nicotine? No Information not available 02/09/2024 What is your level of alcohol consumption? None Information not available 02/09/2024 Mental Status None recorded. Family History Nothing Reported Notes:n/c Medical History No medical history recorded. Gynecological HistoryNo gynecological history recorded. Obstetrics History GPAL:G 0 P 0 0 0 0 Immunizations Vaccine Type Date Status Note Provider Nam e and Address Organization Details Recorded Time Respiratory syncytial virus (RSV) vaccine, unspecified 4 completed Anastacia hsu, [facility] 02/09/2024 13:39:00 Tdap 4 completed Anastacia hsu, [place] [facility] 02/09/2024 13:39:14 Td(adult) unspecified formulation 2 completed Anastacia Watson [facility] 02/09/2024 13:39:28 Pneumococcal conjugate PCV20, polysaccharide [id number] conjugate, adjuvant, PF 3 completed Anastacia Watson [facility] 02/09/2024 13:39:54 influenza, unspecified formulation 2 completed Anastacia [facility] 02/09/2024 13:40:07 influenza, unspecified formulation 3 completed Anastacia [facility] 02/09/2024 13:40:14 SARS-COV-2 (COVID-19) vaccine, UNSPECIFIED 1 completed Anastaciated Watson [facility] 02/09/2024 13:40:26 SARS-COV-2 (COVID-19) vaccine, UNSPECIFIED 1 completed Anastacia Watson [facility] 02/09/2024 13:40:32 SARS-COV-2 (COVID-19) vaccine, UNSPECIFIED 1 completed Anastacia [facility] 02/09/2024 13:40:40 SARS-COV-2 (COVID-19) vaccine, UNSPECIFIED 4 completed Anastacia [facility] 02/09/2024 13:40:46 Past Encounters Encounter ID Performer Location Encounter Start Date Encounter Closed Date Diagnosis/Indication Diagnosis SNOMED-CT Code Diagnosis ICD10 Code Diagnosis Note [id number] Cleo De La Paz NP [address] [address] 02/09/2024 14:19:37 02/10/2024 09:14:17 Fracture of multiple ribs 0288495 S22.42XD see hpi2nd and 3rd left rib fractures eval'd by trauma and rec conservati ve therapy, IS, acapella valve, and pain management and WBAT1/20a nd start lidocaine patch % to ribs and right thighcontt yl 975 mg po tidcyclobe nzaprine 5 mg po qhs and tyl prnoxycodo ne 5 mg po q 6 hours prn painmonito r Asthenia 39448215 R53.1 PT OT eval and treat for strengthen ing, gait, balance, mobility, romsupport candace caremonito r Recurrent falls 31461125 2 R29.6 PT OT eval and treat for strengthen ing, gait, balance, mobility, romsupport candace caremonito r Urinary tr act infectious disease 91169791 N39.0 treated with abx and will continue cefpodoxim e 200 mg po bid here for 7 daysmonito r for sequlae Dementia 64323675 F01.C2 with severe dementiamo nitor for improvemen t from uti or baselineda preston feels dementia may be baseline, although states she never refuses food or meds or states she is being held hostage today and now that daughter is here she is eating drinking and will see if she can take meds today, may be situationa l being new here, will need to monitor closelypys ch to eval and treatwill invokemoni tor Atrial flutter 1270775 I 48.92 clopidogre l 75 mg po dailymetop rolol xl 25 mg po dailyeliqu is 5 mg po bidmonitor Type 2 haven betes mellitus 61349849 E11.9 BS stable 100-200s todayinsul in decreased to lantus 15 units qhsmonitor bs with meals tid ac Depressive disorder 3548 9007 F32.A pt with hx ofsee dementia above Anemia 194669889 D64.9 vit b2 daily bidmonitor cbc weekly x3 for anemia with hx and recent fx on eliquis Congestive heart failure 89629290 I50.9 hx ofconttopr ol xl 25 mg qdentresto is on hold with cefpodoxim e(consider resuming)s pirolacton e 25 mg po qdtorsemid e 40 mg qdfu outpt cardiology 02/15/24 at 2:15 pm [facility] 04/07/2024 07:40 am Peripheral vascular disease 622507095 I73.9 hx ofmonitor Fracture o f inferior pubic ramus 983829105 S32.592G pt with ? of fx of inferior left pubic ramussee hpi, felt not to be a fracture by ortho and WBATmontio rfu with Dr Wiley barrios at [facility] as needed in 1-2 weeks for ? pelvic fracture Hypertensive disorder 38 462974 I10 hx ofconttopr ol xl 25 mg qdentresto is on hold with cefpodoxim e(consider resuming)s pirolacton e 25 mg po qdtorsemid e 40 mg qdmonitor vitals, cardiac status Hyperlipidemia 28558196 E78.5 contliptor 40 mg po qdmonitor Seasonal allergy 6417270 04 J30.2 claritin 10 mg po dailymonit or [id number] Cleo De La Paz NP [facility] [address] [place] [address] 02/10/2024 09:50:43 02/11/2024 10:17:23 Fracture of multiple ribs 9478055 S22.42XD see hpi2nd and 3rd left rib fractures eval'd by trauma and rec conservati ve therapy, IS, acapella valve, and pain management and WBAT104/10a nd start lidocaine patch % to ribs and right thighcontt yl 975 mg po tidcyclobe nzaprine 5 mg po qhs and tyl prnoxycodo ne 5 mg po q 6 hours prn painmonito r Fracture o f inferior pubic ramus 444400826 S32.592G pt with ? of fx of inferior left pubic ramussee hpi, felt not to be a fracture by ortho and WBATmontio rfu with Dr Wiley barrios at [facility] as needed in 1-2 weeks for ? pelvic fracture Asthenia 39613686 R53.1 PT OT eval and treat for strengthen ing, gait, balance, mobility, romsupport candace caremonito r Recurrent falls 79771319 2 R29.6 PT OT eval and treat for strengthen ing, gait, balance, mobility, romsupport candace caremonito r Urinary tr act infectious disease 89393140 N39.0 treated with abx and will continue cefpodoxim e 200 mg po bid here for 7 daysunclea r if dementia is worse with UTI and on abx?questi on if her not taking meds and delusions related to the UTI and seems to be more receptive to staff todaymonit or for sequlae Dementia 12368618 F01.C2 with severe dementiamo nitor for improvemen [...] also helpful to her today Atrial flutter 4092527 I 48.92 clopidogre l 75 mg po dailymetop rolol xl 25 mg po dailyeliqu is 5 mg po bidmonitor Type 2 haven betes mellitus 59804611 E11.9 BS stable 100-200s todayinsul in decreased to lantus 15 units qhsmonitor bs with meals tid ac Depressive disorder 3548 9007 F32.A pt with hx ofsee dementia above Anemia 027709391 D64.9 vit b2 daily bidmonitor cbc weekly x3 for anemia with hx and recent fx on eliquis Congestive heart failure 94961033 I50.9 hx ofconttopr ol xl 25 mg qdentresto is on hold with cefpodoxim e(consider resuming)s pirolacton e 25 mg po qdtorsemid e 40 mg qdfu outpt cardiology 02/15/24 at 2:15 pm [facility] outpt device clinic 04/07/2024 07:40 am Peripheral vascular disease 703102341 I73.9 hx ofmonitor Hypertensive disorder 38 239738 I10 bp stablecont toprol xl 25 mg qdentresto is on hold with cefpodoxim e(consider resuming)s pirolacton e 25 mg po qdtorsemid e 40 mg qdmonitor vitals, cardiac status Hyperlipidemia 22554930 E78.5 contliptor 40 mg po qdmonitor Seasonal allergy 2131877 04 J30.2 claritin 10 mg po dailymonit or [id number] [facility] [address] 02/11/2024 15:02:00 02/16/2024 08:32:26 Dementia 52387996 F01.C2 Mod/severe at baseline.C ommunicati ng pretty well tonight.Co ntinue supportive care, expect decline.HC P invokedMon itor mood and behaviors. Psych consult. Urinary tr act infectious disease 71694361 N30.00 Urine cx grew mixed sonia.Txed with cefpodoxim e 200 mg BID, will complete 7 day course on 02/12.Uncl ear if true UTI, but will complete tx.Monitor for sxs. Depressive disorder 3548 9007 F33.8 Tearful and worried.On no meds.Will get psych consult. Fracture o f multiple ribs 8098934 S22.42XD With continued pain.James nue lidocaine patch % to ribs and right thigh, APAP 975 mg TID, cyclobenza emma 5 mg qhs and oxycodone 5 mg q 6 hs prn.Encour age acappella, I ted, and cough and deep breaths.Mo nitor sxs. Fracture o f inferior pubic ramus 010990285 S32.592G Not thought to be fx per ortho.WBAT , pain meds as above and monitor.Ne eds PT/OT for strengthen ing, balance, gait training, safety and function.C ontinue fall precaution s.Monitor for safety. Asthenia 91306868 R53.1 As above. Recurrent falls 05309432 2 R29.6 As above. Atrial flutter 2693324 I 48.92 Rate in good control on metoprolol 25 mg qd.Continu e clopidogre l 75 mg po qd and eliquis 5 mg BIDMonitor HR and bleeding risk.F/U with cardio as planned. Type 2 haven betes mellitus 13034583 E11.9 BS in adequate control.Co ntinue lantus 15U qd and SSI.Monito r fingerstic ks TI and HgA1C q 3-6 months. Anemia 578442958 D64.89 Stable.Mon itor Congestive heart failure 31973833 I50.9 Appears euvolemic. Continue meds as above.Tram tor resp. status, fluid status, wts and labs.F/U with cardio 02/15/24 at 2:15 pm and at device clinic 04/07/2024 at 7:40 am Peripheral vascular disease 082406442 I73.89 hx ofmonitor Hypertensive disorder 38 118135 I10 BP in good control since here.James nue metoprolol 25 mg qd, spironolac tone 25 mg qd and torsemide 40 mg qdMonitor BP and labs. Hyperlipidemia 97781570 E78.49 Continue atorvastat in 40 mg qdMonitor yearly. Seasonal allergy 6353432 04 J30.2 Continue claritin 10 mg qdMonitor sxs. [id number] Jane Anderson MD [address] [address] 02/15/2024 14:21:58 03/17/2024 11:50:25 Dementia 85111300 F01.C2 Mod/severe at baseline.C ommunicati ng pretty well tonight.Co ntinue supportive care, expect decline.HC P invokedMon itor mood and behaviors. Psych consult. Urinary tr act infectious disease 31340224 N30.00 Urine cx grew mixed sonia.Txed with cefpodoxim e 200 mg BID, will complete 7 day course on 02/12.Uncl ear if true UTI, but will complete tx.Monitor for sxs. Depressive disorder 3548 9007 F33.8 Tearful and worried.On no meds.Will get psych consult. Fracture o f multiple ribs 7312661 S22.42XD With continued pain.James nue lidocaine patch % to ribs and right thigh, APAP 975 mg TID, cyclobenza emma 5 mg qhs and oxycodone 5 mg q 6 hs prn.Encour age acappella, I ted, and cough and deep breaths.Mo nitor sxs. Fracture o f inferior pubic ramus 836986446 S32.592G Not thought to be fx per ortho.WBAT , pain meds as above and monitor.Ne eds PT/OT for strengthen ing, balance, gait training, safety and function.C ontinue fall precaution s.Monitor for safety. Asthenia 45350848 R53.1 As above. Recurrent falls 78458530 2 R29.6 As above. Atrial flutter 1951483 I 48.92 Rate in good control on metoprolol 25 mg qd.Continu e clopidogre l 75 mg po qd and eliquis 5 mg BIDMonitor HR and bleeding risk.F/U with cardio as planned. Type 2 haven betes mellitus 12723151 E11.9 BS in adequate control.Co ntinue lantus 15U qd and SSI.Monito r fingerstic ks TI and HgA1C q 3-6 months. Anemia 061230605 D64.89 Stable.Mon itor Hypertensive disorder 38 357667 I10 BP in good control since here.James nue metoprolol 25 mg qd, spironolac tone 25 mg qd and torsemide 40 mg qdMonitor BP and labs. Congestive heart failure 75416743 I50.9 Appears euvolemic. Continue meds as above.Tram tor resp. status, fluid status, wts and labs.F/U with cardio 02/15/24 at 2:15 pm and at device clinic 04/07/2024 at 7:40 am Peripheral vascular disease 269064848 I73.89 hx ofmonitor Hyperlipidemia 31872920 E78.49 Continue atorvastat in 40 mg qdMonitor yearly. Seasonal allergy 5411332 04 J30.2 Continue claritin 10 mg qdMonitor sxs. [id number] Cleo De La Paz, [place] [address] [address] 02/24/2024 09:23:02 02/25/2024 11:26:37 Dementia 13395083 F01.C2 Mod/severe at baseline. seems to be trusting staff and improvingC ontinue supportive care, expect decline.HC P invokedMon itor mood and behaviors. Psych consult. Depressive disorder 3548 9007 F33.8 appears tearful at times, improving while hereOn no meds.Will get psych consult. Has not seen her yet Fracture o f multiple ribs 1324319 S22.42XD pain managed and leaving her Contin uelidocain e patch % to ribs and right thigh, APAP 975 mg TID, cyclobenza emma 5 mg qhs and oxycodone 5 mg q 6 hs prn.Encour age acappella, I ted, and cough and deep breaths.Mo nitor sxs. Fracture o f inferior pubic ramus 425400579 S32.592G Not thought to be fx per ortho.WBAT , pain meds as above and monitor.Ne eds PT/OT for strengthen ing, balance, gait training, safety and function.C ontinue fall precaution s.Monitor for safety. Asthenia 97943420 R53.1 As above. Recurrent falls 17065018 2 R29.6 As above. Atrial flutter 8387849 I 48.92 Rate in good control on metoprolol 25 mg qd.Continu eclopidogr el 75 mg po qd and eliquis 5 mg BIDMonitor HR and bleeding risk.F/U with cardio as planned. Type 2 haven betes mellitus 78812582 E11.9 BS in adequate control, 100s 200s mostlyCont inuelantus 15U qd and SSI.Monito r fingerstic ks TI and HgA1C q 3-6 months. Anemia 206312386 D64.89 Stable.Mon itor Hypertensive disorder 38 167805 I10 BP in good control since here.James nuemetopro lol 25 mg qd, spironolac tone 25 mg qd and torsemide 40 mg qdMonitor BP and labs. Congestive heart failure 61258359 I50.9 Appears euvolemic. Continue meds as above.Tram tor resp. status, fluid status, wts and labs.F/U with cardio 02/15/24 at 2:15 pm and at device clinic 04/07/2024 at 7:40 am. ? if she went to this appt-need notes Health Concerns Section Related Observation LastModified by Organization Bang ls LastModified Time None Recorded Concern Status LastModified by Organization Details LastModified Time None Recorded Advance Directives Directive Y: Payers Encounter Date Sequence Insurance Name Policy Number Policy Lind Covered Member ID Lind Member ID Guarantor Name 02/09/2024 1 [facility] [employer] - DOS ON OR AFTER 2022 - MEDICARE [place]AGE [place]ANTAGE - PPO) Aaliyah Light [id number] Aaliyah Light 02/10/2024 1 [facility] - DOS ON OR AFTER 2022 - [place]ANTAGE - PPO) Aaliyah Light [id number] Aaliyah Light 02/11/2024 1 [facility] - DOS ON OR AFTER 2022 - [place]ANT[place] - [place]PO) Aaliyah Light [id number] Aaliyah Light 02/15/2024 1 [facility] - DOS ON OR AFTER 2022 - [place]ANTAGE - PPO) Aaliyah Light [id number] Aaliyah Light 02/24/2024 1 [facility] - DOS ON OR AFTER 2022 - [place]ANTAGE - PPO) Aaliyah Kuldeep [id number] Aaliyah Kuldeep Notes Date Note Type Note Provider Name and Address Organization Details Recorded Time 4 text/html Pt is seen for an initial intake visit. PMH: Afib on eliquis, dementia, DM, falls, HTN, HLD, PVD, UTI Aaliyah was seen at [facility] for a [place] and sent to [...] management On exam, Aaliyah is an elderly [place] speaking female lying in bed with her [...] she is cooperative and pleasant with this PROFESSOR OF RELIGIOUS STUDIES. She states she hurts all over but [...] per HCP daughter Cleo De La Paz, PROFESSOR OF RELIGIOUS STUDIES [address] [facility], [address], [place], [address], [facility] 02/09/2024 19:34:16 4 text/html Pt is seen for an acute rounding visit. PMH: Afib on eliquis, dementia, DM, falls, HTN, HLD, PVD, UTI Aaliyah was seen at [facility] for a [place] and sent to [...] she is reassured of her meds. This PROFESSOR OF RELIGIOUS STUDIES went through each medication and reviewed it [...] per HCP daughter Cleo De La Paz, PROFESSOR OF RELIGIOUS STUDIES [address] [facility], [address], [place], [address], [facility] 02/10/2024 10:02:06 4 text/html This is a [...] .Continue Lantus, lispro sliding scalePOCT AC, at bedtimeA-fib(I48.91):Rat e tvqxlatdne-Gihbbo-DYDbrd coagulation-on Eliquis Tonight she is in bed, awake. She tells me she's feeling ok, but is scared because she doesn't know if she's going to get better. Gets tearful at times.I see her with a ugandan speaking staff member, but she answers in turkmen often, and sometimes answers my questions before he translates them. Her PMH includes HTN, Afib on Eliquis, dementia, AODM, HLD, PVD, UTIs and frequent falls. Jane Anderson MD [address] [place] [address], [address], [place], [address], [facility] 02/15/2024 14:55:48 4 text/html I am seeing this 78 yo woman today for an acute visit to f/u rib pain and progress in rehab .She denies pain, but often gets tearful. When I ask her what kind of place this is, she tells me it's a place people come to .I see her with a ugandan speaking staff member, but she answers in turkmen often, and sometimes answers my questions before he translates them. Her PMH includes HTN, Afib on Eliquis, dementia, AODM, HLD, PVD, UTIs and frequent falls. Jane Anderson MD [address] [facility] [facility], [address], [place], [address], [facility] 03/16/2024 16:10:08 4 text/html Pt is seen for an acute rounding visit. Her PMH includes HTN, Afib on Eliquis, dementia, AODM, HLD, PVD, UTIs and frequent falls.I Aaliyah is a 78 yo woman who was seen at [facility] [place] a [place] and sent to [...] no [address] involvement. Ordered of note; [facility] Workup included labs, UA positive for UTI [...] per HCP daughter Cleo De La Paz, PROFESSOR OF RELIGIOUS STUDIES [address] [facility] [facility], [address], [place], [address], [place] [facility] 02/24/2024 20:17:01 OBGyn Episode No OBEpisode recorded.
== END ==
LOC: HO.CARD 10:34
PROVIDERS: PCP Family Medicine; Visit Provider Nurse Practitioner Family
DX: R09.89 Other specified symptoms and signs involving the circulatory and respiratory systems (principal); Z86.79 Personal history of other diseases of the circulatory system
CPT/HCPCS: 93306

== ENCOUNTER → 2024-08-16 10:38 | Outpatient (BNV) | payer OTHER, SELFPAY | PROVIDERS: PCP Family Medicine; Visit Provider Internal Medicine Cardiovascular Disease | DX: I51.89 Other ill-defined heart diseases (principal); I77.810 Thoracic aortic ectasia | CPT/HCPCS: 93306 ==

== ENCOUNTER 2024-09-21 11:08 | Outpatient (REF) | payer OTHER, SELFPAY ==
--- OUTSIDE RECORDS SUMMARY | 2024-09-21 12:00 | XMS_ITS | Encounter Summary ---
Author Organization [employer] Address [address] [place] [address] Care Team Providers Care Physician Representative Name Role Phone Sarai Trejo MD Primary Care Provider [phone] Encounter Details Date Type Department Care Team ([facility] st Contact Info) Description 01/11/2024 Orders Only [facility] [address], [place] [phone] Sarai Trejo MD [address] [place], [place] [phone] Social History Tobacco Use Types Packs/Day Years [...] Care Team (Late st Contact Info) Description 10/12/2024 9:00 AM EDT Office Visit [facility] ADULT DENTAL [address], [place] [phone] Lester Terrazas DDS [address] [place] [address] documented as of this encounter Goals Goal Patient Goal Type Associated Problems Recent Progress Patient-Stated? Author Blood Pressure < 140/90 Blood Pressure 148/66(2024 10:27 AM EDT) No Yury Bee PharmD Hemoglobin A1c < 7 Result Component 7.1( 10:30 AM EDT) No Yury Bee PharmD documented as of this encounter Visit Diagnoses Not on filedocumented in this encounter Additional Health Concerns Assessment Noted Time PHQ-9 Depression Total Score: 0 08/12/19 24 11:13 AM EDT documented as of this encounter Care Teams Physician Representative Relationship Specialty Start Date End Date Sarai Trejo MD [address] [place] [address] PCP - General Family Medicine 03/22/18 documented as of this encounter
--- OUTSIDE RECORDS SUMMARY | 2024-09-21 12:00 | XMS_ITS | Encounter Summary ---
Author Organization [facility] Address [address] [place] [address] Care Team Providers Care Polisher Sand Name Role Phone John Paul Bass MD Primary Care Provider [phone] Encounter Details Date Type Department Care Team (Late st Contact Info) Description 03/11/2024 Lab Requisition [facility] - Main Lab [address] [facility] [place] [place] [address] John Paul Bass MD [address] [place] [address] [address] [facility] [phone] Chronic kidney disease, unspecified; Anemia, unspecified Social [...] unspecified documented in this encounter Care Teams Polisher Sand Relationship Specialty Start Date End Date John Paul Bass MD [address] [facility] [address] [place], [id number] PCP - General Family Medicine 02/14/24 documented as of this encounter
--- OUTSIDE RECORDS SUMMARY | 2024-09-21 12:00 | XMS_ITS | Clinical Summary ---
Author Organization [facility] Address [address] [place] [address] Care Team Providers Care Academic Associate Name Role Phone Unavailable Primary Care Provider [...] 79 01/18/2024 1:11 PM EDT Temperature 35.9 C (96.7 F) 01/18/2024 1:11 PM EDT Respiratory Rate - - Oxygen Saturation - [...] 1-dose 75+ series) 12/14/2019 Influenza Vaccine (#1) 2024 3, 02/01/2020, 01/03/2020, Additional history exists DTap / Tdap / Td (2 - Td or Tdap) 07/13/2026 07/13/2016 Pneumococcal Vaccine Completed 06/15/2014, 11/13/2013, 01/30/2005 Hepatitis B Vaccines Completed 05/27/2015, 01/25/2014, 11/13/2013 Shingrix-Zoster Vaccine Completed 01/04/2020, 03/20 RSV Ped < 20 months Aged Out No longe r eligible based on patient's age to complete this topic
--- OUTSIDE RECORDS SUMMARY | 2024-09-21 12:00 | XMS_ITS ---
Author Name [facility] Organization Unknown History of Medication Use Medication Directions Dispensed Refills Start Date End Date Stat us atorvastatin (LIPITOR) tablet 40 mg Take 1 tablet (40 mg total) by mouth every night at bedtime. 01/10/2024 active aspirin 81 MG EC tablet Take 1 tablet (81 mg total) by mouth every night at bedtime. 11/23/2023 active montelukast (SINGULAIR) 10 MG tablet Take 1 tablet (10 mg total) by mouth every evening. 10/26/2023 active magnesium oxide (MAG-OX) 400 MG tablet TAKE 1 TABLET BY MOUTH EVERY OTHER DAY IN THE EVENING 10/05/2023 active pantoprazole (PROTONIX) 40 MG tablet Take 1 tablet (40 mg total) by mouth daily. 09/28/2023 active acetaminophen (TYLENOL EXTRA STRENGTH) 500 MG tablet TAKE 2 TABLETS BY MOUTH EVERY 8 HOURS NEEDED 05/17/2023 active metoprolol tartrate (LOPRESSOR) 25 MG tablet Take 1 tablet (25 mg total) by mouth. 06/24/2022 active Allergies Allergen Reaction Severity Comment Documented Date Source Statu s FISH ALLERGY Other reaction( s): white fish 06/30/2022 [facility] active TRAMADOL 09/15/2021 [facility] active Problems Problem Status Onset Date Problem Type Date of Resolution Source Headache active EncounterDiagnosisAct CTTHNEMG Chronic migraine with aura and with status migrainosus, not intractable active EncounterDiagnosisAct CTT HNEMG
--- OUTSIDE RECORDS SUMMARY | 2024-09-21 12:00 | XMS_ITS | Patient Health Record ---
Author Organization [facility] Address [address] [place] [address] Care Team Providers Care Ell Tutor Name Role Phone Neil DOTY, Sarai Primary Care Provider Sergey Mathews [facility] [phone] Allergies No Known Allergies Reason For Referral [...] tabletas con la primera escreta blanda y renalod 1 tableta despues de cada movimiento instestinal. [...] Status Risk Notes Problem Irritable bowel syndrome (92062938) Irritable bowel syndrome (K58.9) Active confirmed Problem Screening for malignant neoplasm of colon (740479929) Encounter for screening for malignant neoplasm of colon (Z12.11) Active confirmed Problem 15383743 Irritable bowel syndrome without diarrhea (K58.9) Active confirmed Problem Family History of Cancer of Colon (Situation) (589195550) Family history of colon cancer (Z80.0) Active confirmed Problem 369866320 Abdominal pain, right upper quadrant (R10.11) Active confirmed Problem 925593048 Abnormal CT of the abdomen (R93.5) Active confirmed Problem 76634930 Irritable bowel syndrome with both constipation and diarrhea (K58.2) Active confirmed Problem 299493128 RUQ pain (R10.11) Active confirmed Problem 295014727 Acute biliary pancreatitis without infection or necrosis (K85.10) Active confirmed Problem 020017799 Abdominal wall pain in right upper quadrant (R10.11) Active confirmed Plan Of Treatment Pending Test Test Name Order Date BUN 03/27/2015 CREATININE 03/27/2015 LIVER PROFILE 03/27/2015 Future Test Test Name Order Date COLONOSCOPY 07/10/2014 COLONOSCOPY 04/17/2020 Insurance Providers Payer Name Payer Address Payer Phone Subscriber Number Group Number Insured Name Patient Relationship to Insured Coverage Start Date Coverage End Date [facility] [address] [address] [place] [phone] [id number] JAYLEN RONDON Self - patient is the insured Medical (General) History Medical History History ICD Code Colonoscopies in 2003 and 03-28-2009--both negative for polyps-did have diverticulosis and hemorrhoids Osteoporosis Back pain Depression Denies NH,CVA,renal disease COPD NIDDM Neuropathy GERD Hypothroidism Negative [...]
--- OUTSIDE RECORDS SUMMARY | 2024-09-21 12:00 | XMS_ITS | Encounter Summary ---
Author Organization [facility], Address [address] [place] [address] Phone Care Team Providers Care Nanotechnology Engineering Technologist Name Role Phone Abhishek Vergara MD Primary Care Provider [phone] Encounter Details Date Type Department Care Team ([facility] st Contact Info) Description 07/14/2023 Documentation Only [facility], [address] [place] [address] James Gore, [address] [place] [address] Social History Tobacco Use Types [...] on filedocumented in this encounter Care Teams Nanotechnology Engineering Technologist Relationship Specialty Start Date End Date Abhishek Vergara MD [address] [place] [address] PCP - General 04/01/20 documented as of this encounter
--- OUTSIDE RECORDS SUMMARY | 2024-09-21 12:00 | XMS_ITS | Data Portability ---
Author Organization [facility] [employer] [facility], Main Office Address [address] [place] [address] Care Team Providers Care Tax Manager Public Name Role Phone MARGARETH FUENTES - 2ND [...] Address Organization Details Recorded Time Recurrent falls 064997651 Active 2023 Cleo De La Paz NP [address], [address], [place], [address], [facility] [employer] [facility] 14:23:46 Asthenia 72884930 Active 2023 Cleo De La Paz NP [address], [address], [place], [address], [facility] 14:23:52 Anemia 577413923 Active 2023 Cleo De La Paz NP [address], [address], [place], [address], [facility] [facility] 14:23:59 Atrial flutter 1459971 Active 2023 Cleo De La Paz NP [address], [address], [place], [address], [facility] [facility] 14:24:25 Dementia 71360068 Active 2023 Cleo De La Paz NP [address], [address], [place], [address], [address] - [facility] 4 14:24:42 Type 2 diabetes mellitus 84019886 Active 2023 Cleo De La Paz NP [address], [address], [place], [address], [place] - [facility] 4 14:25:01 Depressive disorder 67533675 Active 2023 Cleo De La Paz NP [address], [address], [place], [address], [place] - [facility] 4 14:25:09 Fracture of multiple ribs 5006307 Active 2023 Cleo De La Paz NP [address], [address], [place], [address], [place] - [facility] 4 19:03:44 Peripheral vascular disease 717842561 Active 2023 Cleo De La Paz NP [address], [address], [place], [address], [address] - [facility] 4 19:04:26 Congestive heart failure 59397818 Active 2023 Cleo De La Paz NP [address], [address], [place], [address], [address] - [facility] 4 19:04:45 Hypertensive disorder 57578209 Active 2023 Cleo De La Paz NP [address], [address], [place], [address], [address] - [facility] 4 19:05:00 Hyperlipidemia 27971781 Active 2023 Cleo De La Paz NP [address], [address], [place], [address], [address] - [facility] 4 19:19:08 Seasonal allergy 741801458 Active 2023 Cleo De La Paz NP [address], [address], [place], [address], [place] - [facility] 4 19:25:46 Urinary tract infectious disease 80251018 Active 2023 Jane Anderson MD [address], [address], [place], [address], [facility] 4 14:37:32 Problem Notes None recorded. Medical Equipment None Reported. Allergies Allergen ID Allergen Name Allergen Category Reaction Reaction Severity Criticality Documentation Date Start Date Code Code System Note Provider Name and Address Organization Details Recorded Time 38081 erythromy ashley medicatio n other Not available unabletoasse 02/09/2024 4053 RxNorm unkno wn Cleo De La Paz NP [address], [address], [place], [address], [facility] 4 14:20:30 40461 Substance with sulfonami de structure and antibacte rial mechanism of action (substanc e) medicatio n other Not available unabletoasse 02/09/2024 77909 8003 SNOMED unkno wn Cleo De La Paz NP [address], [address], [place], [address], [facility] [employer] 4 14:20:51 06646 lactose food,medi cation other Not available unabletoasse 02/09/2024 6211 RxNorm unkno wn Cleo De La Paz NP [address], [address], [place], [address], [facility] 4 14:21:10 42455 shellfish derived food,medi cation other Not available unabletoasse 02/09/2024 76991 UNK seafo od Cleo De La Paz NP [address], [address], [place], [address], [facility] 4 14:21:41 Vitals Date Recorded Heart rate Respiratory rate Body temperature Oxygen saturation Oxygen saturation in Arterial blood by Pulse oximetry Systolic And Diastolic Provider Name and Address Organization Details Last Updated DateTime 4 68 /min 17 /min 97.6 [degF] 94 % 94 % 104/78 mm[Hg] Cleo De La Paz NP [address], [address], [place], [address], [facility] 4 14:22:12 Date Recorded Heart rate Respiratory rate Body temperature Oxygen saturation Oxygen saturation in Arterial blood by Pulse oximetry Systolic And Diastolic Provider Name and Address Organization Details Last Updated DateTime 4 72 /min 16 /min 97.3 [degF] 92 % 92 % 104/74 mm[Hg] Cleo De La Paz NP [address], [address], [place], [address], [facility] 4 09:54:01 Date Recorded Heart rate Respiratory rate Body temperature Oxygen saturation Oxygen saturation in Arterial blood by Pulse oximetry Body weight Body mass index (BMI) Body height Systolic And Diastolic Provider Name and Address Organization Details Last Updated DateTime 4 72 /min 18 /min 98.7 [degF] 96 % 96 % 98793.0 5 g 25.2 kg/m2 149.86 cm 104/74 mm[Hg] Jane Anderson MD [address] [facility] [address], [place], [address], [facility] 4 17:40:16 Date Recorded Body height Heart rate Respiratory rate Body temperature Oxygen saturation Oxygen saturation in Arterial blood by Pulse oximetry Body mass index (BMI) Body weight Systolic And Diastolic Provider Name and Address Organization Details Last Updated DateTime 4 149.86 cm 76 /min 16 /min 97 [degF] 97 % 97 % 24 kg/m2 81439.4 9 g 142/81 mm[Hg] Jane Anderson MD [address] [facility] [address], [place], [address], [facility] 4 20:59:29 Date Recorded Body height Body weight Body mass index (BMI) Heart rate Respiratory rate Body temperature Oxygen saturation Oxygen saturation in Arterial blood by Pulse oximetry Systolic And Diastolic Provider Name and Address Organization Details Last Updated DateTime 4 149.86 cm 93726.0 8 g 24.2 kg/m2 76 /min 16 /min 97.7 [degF] 97 % 97 % 142/81 mm[Hg] Cleo De La Paz NP [address], [facility] [address], [place], [address], [facility] 4 09:24:10 Social History Question Answer Notes LastModified by Organizat ion Details LastModified Time Tobacco Smoking Status Never Smoker Cleo De La Paz, [place] [address], [address], [place], [address], [facility] 02/09/2024 18:41:14 Do You Have An Advance Directive? Yes Information not available 02/15/2024 What Is Your Code Status? DNR/DNI Information not available 02/15/2024 Where Do You Live? Apartment Information not available 02/09/2024 Legal Guardian? No Informati on not available 02/15/2024 Do You Have A Medical Power Of Website Designer? Yes Invoked Information not available 02/15/2024 What [...] virus (RSV) vaccine, unspecified 4 completed [facility] 02/09/2024 13:39:00 Tdap 4 completed [facility] 02/09/2024 13:39:14 Td(adult) unspecified formulation 2 completed [facility] 02/09/2024 13:39:28 Pneumococcal conjugate PCV20, polysaccharide [id number] conjugate, adjuvant, PF 3 completed [facility] 02/09/2024 13:39:54 influenza, unspecified formulation 2 completed [facility] 02/09/2024 13:40:07 influenza, unspecified formulation 3 completed [facility] 02/09/2024 13:40:14 SARS-COV-2 (COVID-19) vaccine, UNSPECIFIED 1 completed [facility] 02/09/2024 13:40:26 SARS-COV-2 (COVID-19) vaccine, UNSPECIFIED 1 completed [facility] 02/09/2024 13:40:32 SARS-COV-2 (COVID-19) vaccine, UNSPECIFIED 1 completed [facility] 02/09/2024 13:40:40 SARS-COV-2 (COVID-19) vaccine, UNSPECIFIED 4 completed [facility] 02/09/2024 13:40:46 Past Encounters Encounter ID Performer Location Encounter Start Date Encounter Closed Date Diagnosis/Indication Diagnosis SNOMED-CT Code Diagnosis ICD10 Code Diagnosis Note [id number] Cleo De La Paz NP [address] [address] 02/09/2024 14:19:37 02/10/2024 09:14:17 Fracture of multiple ribs 8948993 S22.42XD see hpi2nd and 3rd left rib fractures eval'd by trauma and rec conservati ve therapy, IS, acapella valve, and pain management and WBAT104/10a nd start lidocaine patch % to ribs and right thighcontt yl 975 mg po tidcyclobe nzaprine 5 mg po qhs and tyl prnoxycodo ne 5 mg po q 6 hours prn painmonito r Asthenia 01476023 R53.1 PT OT eval and treat for strengthen ing, gait, balance, mobility, romsupport candace caremonito r Recurrent falls 78129645 2 R29.6 PT OT eval and treat for strengthen ing, gait, balance, mobility, romsupport candace caremonito r Urinary tr act infectious disease 98394561 N39.0 treated with abx and will continue cefpodoxim e 200 mg po bid here for 7 daysmonito r for sequlae Dementia 15452325 F01.C2 with severe dementiamo nitor for improvemen [...] eval and treatwill invokemoni tor Atrial flutter 1619803 I 48.92 clopidogre l 75 mg po dailymetop rolol xl 25 mg po dailyeliqu is 5 mg po bidmonitor Type 2 haven betes mellitus 23702183 E11.9 BS stable 100-200s todayinsul in decreased to lantus 15 units qhsmonitor bs with meals tid ac Depressive disorder 3548 9007 F32.A pt with hx ofsee dementia above Anemia 294137993 D64.9 vit b2 daily bidmonitor cbc weekly x3 for anemia with hx and recent fx on eliquis Congestive heart failure 65828774 I50.9 hx ofconttopr ol xl 25 mg qdentresto is on hold with cefpodoxim e(consider resuming)s pirolacton e 25 mg po qdtorsemid e 40 mg qdfu outpt cardiology 02/15/24 at 2:15 pm [facility] 04/07/2024 07:40 am Peripheral vascular disease 574386060 I73.9 hx ofmonitor Fracture o f inferior pubic ramus 748065586 S32.592G pt with ? of fx of inferior left pubic ramussee hpi, felt not to be a fracture by ortho and WBATmontio rfu with Dr Wiley barrios at [facility] as needed in 1-2 weeks for ? pelvic fracture Hypertensive disorder 38 348720 I10 hx ofconttopr ol xl 25 mg qdentresto is on hold with cefpodoxim e(consider resuming)s pirolacton e 25 mg po qdtorsemid e 40 mg qdmonitor vitals, cardiac status Hyperlipidemia 06826092 E78.5 contliptor 40 mg po qdmonitor Seasonal allergy 2215157 04 J30.2 claritin 10 mg po dailymonit or [id number] Cleo De La Paz NP [facility] [place] [address] 02/10/2024 09:50:43 02/11/2024 10:17:23 Fracture of multiple ribs 2069859 S22.42XD see hpi2nd and 3rd left rib fractures eval'd by trauma and rec conservati ve therapy, IS, acapella valve, and pain management and WBAT1/20a nd start lidocaine patch % to ribs and right thighcontt yl 975 mg po tidcyclobe nzaprine 5 mg po qhs and tyl prnoxycodo ne 5 mg po q 6 hours prn painmonito r Fracture o f inferior pubic ramus 620857398 S32.592G pt with ? of fx of inferior left pubic ramussee hpi, felt not to be a fracture by ortho and WBATmontio rfu with Dr Wiley barrios at [facility] as needed in 1-2 weeks for ? pelvic fracture Asthenia 50859374 R53.1 PT OT eval and treat for strengthen ing, gait, balance, mobility, romsupport candace caremonito r Recurrent falls 70939035 2 R29.6 PT OT eval and treat for strengthen ing, gait, balance, mobility, romsupport candace caremonito r Urinary tr act infectious disease 67657951 N39.0 treated with abx and will continue cefpodoxim e 200 mg po bid here for 7 daysunclea r if dementia is worse with UTI and on abx?questi on if her not taking meds and delusions related to the UTI and seems to be more receptive to staff todaymonit or for sequlae Dementia 71977849 F01.C2 with severe dementiamo nitor for improvemen t from uti or baselineda megcarissa feels dementia may be baseline,u nclear if [...] also helpful to her today Atrial flutter 5499191 I 48.92 clopidogre l 75 mg po dailymetop rolol xl 25 mg po dailyeliqu is 5 mg po bidmonitor Type 2 haven betes mellitus 23660477 E11.9 BS stable 100-200s todayinsul in decreased to lantus 15 units qhsmonitor bs with meals tid ac Depressive disorder 3548 9007 F32.A pt with hx ofsee dementia above Anemia 487619424 D64.9 vit b2 daily bidmonitor cbc weekly x3 for anemia with hx and recent fx on eliquis Congestive heart failure 49737729 I50.9 hx ofconttopr ol xl 25 mg qdentresto is on hold with cefpodoxim e(consider resuming)s pirolacton e 25 mg po qdtorsemid e 40 mg qdfu outpt cardiology 02/15/24 at 2:15 pm [facility] outpt device clinic 04/07/2024 07:40 am Peripheral vascular disease 019805961 I73.9 hx ofmonitor Hypertensive disorder 38 948965 I10 bp stablecont toprol xl 25 mg qdentresto is on hold with cefpodoxim e(consider resuming)s pirolacton e 25 mg po qdtorsemid e 40 mg qdmonitor vitals, cardiac status Hyperlipidemia 50422477 E78.5 contliptor 40 mg po qdmonitor Seasonal allergy 4916530 04 J30.2 claritin 10 mg po dailymonit or [id number] [facility] [address] 02/11/2024 15:02:00 02/16/2024 08:32:26 Dementia 33037208 F01.C2 Mod/severe at baseline.C ommunicati ng pretty well tonight.Co ntinue supportive care, expect decline.HC P invokedMon itor mood and behaviors. Psych consult. Urinary tr act infectious disease 47239187 N30.00 Urine cx grew mixed sonia.Txed with cefpodoxim e 200 mg BID, will complete 7 day course on 02/12.Uncl ear if true UTI, but will complete tx.Monitor for sxs. Depressive disorder 3548 9007 F33.8 Tearful and worried.On no meds.Will get psych consult. Fracture o f multiple ribs 5623903 S22.42XD With continued pain.James nue lidocaine patch % to ribs and right thigh, APAP 975 mg TID, cyclobenza emma 5 mg qhs and oxycodone 5 mg q 6 hs prn.Encour age acappella, I ted, and cough and deep breaths.Mo nitor sxs. Fracture o f inferior pubic ramus 846404792 S32.592G Not thought to be fx per ortho.WBAT , pain meds as above and monitor.Ne eds PT/OT for strengthen ing, balance, gait training, safety and function.C ontinue fall precaution s.Monitor for safety. Asthenia 70523659 R53.1 As above. Recurrent falls 03341462 2 R29.6 As above. Atrial flutter 7270027 I 48.92 Rate in good control on metoprolol 25 mg qd.Continu e clopidogre l 75 mg po qd and eliquis 5 mg BIDMonitor HR and bleeding risk.F/U with cardio as planned. Type 2 haven betes mellitus 68017185 E11.9 BS in adequate control.Co ntinue lantus 15U qd and SSI.Monito r fingerstic ks TI and HgA1C q 3-6 months. Anemia 634190197 D64.89 Stable.Mon itor Congestive heart failure 74434615 I50.9 Appears euvolemic. Continue meds as above.Tram tor resp. status, fluid status, wts and labs.F/U with cardio 02/15/24 at 2:15 pm and at device clinic 04/07/2024 at 7:40 am Peripheral vascular disease 206699983 I73.89 hx ofmonitor Hypertensive disorder 38 991355 I10 BP in good control since here.James nue metoprolol 25 mg qd, spironolac tone 25 mg qd and torsemide 40 mg qdMonitor BP and labs. Hyperlipidemia 52258385 E78.49 Continue atorvastat in 40 mg qdMonitor yearly. Seasonal allergy 2258258 04 J30.2 Continue claritin 10 mg qdMonitor sxs. [id number] Jane Anderson MD [address] [address] 02/15/2024 14:21:58 03/17/2024 11:50:25 Dementia 02078173 F01.C2 Mod/severe at baseline.C ommunicati ng pretty well tonight.Co ntinue supportive care, expect decline.HC P invokedMon itor mood and behaviors. Psych consult. Urinary tr act infectious disease 78563500 N30.00 Urine cx grew mixed sonia.Txed with cefpodoxim e 200 mg BID, will complete 7 day course on 02/12.Uncl ear if true UTI, but will complete tx.Monitor for sxs. Depressive disorder 3548 9007 F33.8 Tearful and worried.On no meds.Will get psych consult. Fracture o f multiple ribs 1220269 S22.42XD With continued pain.James nue lidocaine patch % to ribs and right thigh, APAP 975 mg TID, cyclobenza emma 5 mg qhs and oxycodone 5 mg q 6 hs prn.Encour age acappella, I ted, and cough and deep breaths.Mo nitor sxs. Fracture o f inferior pubic ramus 433091379 S32.592G Not thought to be fx per ortho.WBAT , pain meds as above and monitor.Ne eds PT/OT for strengthen ing, balance, gait training, safety and function.C ontinue fall precaution s.Monitor for safety. Asthenia 67505055 R53.1 As above. Recurrent falls 92792321 2 R29.6 As above. Atrial flutter 7126561 I 48.92 Rate in good control on metoprolol 25 mg qd.Continu e clopidogre l 75 mg po qd and eliquis 5 mg BIDMonitor HR and bleeding risk.F/U with cardio as planned. Type 2 haven betes mellitus 01818856 E11.9 BS in adequate control.Co ntinue lantus 15U qd and SSI.Monito r fingerstic ks TI and HgA1C q 3-6 months. Anemia 607404295 D64.89 Stable.Mon itor Hypertensive disorder 38 644935 I10 BP in good control since here.James nue metoprolol 25 mg qd, spironolac tone 25 mg qd and torsemide 40 mg qdMonitor BP and labs. Congestive heart failure 41190524 I50.9 Appears euvolemic. Continue meds as above.Tram tor resp. status, fluid status, wts and labs.F/U with cardio 02/15/24 at 2:15 pm and at device clinic 04/07/2024 at 7:40 am Peripheral vascular disease 133363638 I73.89 hx ofmonitor Hyperlipidemia 77499297 E78.49 Continue atorvastat in 40 mg qdMonitor yearly. Seasonal allergy 2113748 04 J30.2 Continue claritin 10 mg qdMonitor sxs. [id number] Cleo De La Paz NP [address] [address] 02/24/2024 09:23:02 02/25/2024 11:26:37 Dementia 01159925 F01.C2 Mod/severe at baseline. seems to be trusting staff and improvingC ontinue supportive care, expect decline.HC P invokedMon itor mood and behaviors. Psych consult. Depressive disorder 6568 9007 F33.8 appears tearful at times, improving while hereOn no meds.Will get psych consult. Has not seen her yet Fracture o f multiple ribs 2336564 S22.42XD pain managed and leaving her Contin uelidocain e patch % to ribs and right thigh, APAP 975 mg TID, cyclobenza emma 5 mg qhs and oxycodone 5 mg q 6 hs prn.Encour age acappella, I ted, and cough and deep breaths.Mo nitor sxs. Fracture o f inferior pubic ramus 494179602 S32.592G Not thought to be fx per ortho.WBAT , pain meds as above and monitor.Ne eds PT/OT for strengthen ing, balance, gait training, safety and function.C ontinue fall precaution s.Monitor for safety. Asthenia 27304298 R53.1 As above. Recurrent falls 16690583 2 R29.6 As above. Atrial flutter 5934196 I 48.92 Rate in good control on metoprolol 25 mg qd.Continu eclopidogr el 75 mg po qd and eliquis 5 mg BIDMonitor HR and bleeding risk.F/U with cardio as planned. Type 2 haven betes mellitus 85526741 E11.9 BS in adequate control, 100s 200s mostlyCont inuelantus 15U qd and SSI.Monito r fingerstic ks TI and HgA1C q 3-6 months. Anemia 034266348 D64.89 Stable.Mon itor Hypertensive disorder 38 863445 I10 BP in good control since here.James nuemetopro lol 25 mg qd, spironolac tone 25 mg qd and torsemide 40 mg qdMonitor BP and labs. Congestive heart failure 32449153 I50.9 Appears euvolemic. Continue meds as above.Tram [...] None Recorded Advance Directives Directive Y: Payers Insurance Date Sequence Insurance Name Policy Number Policy Lind Covered Member ID Lind Member ID Guarantor Name 03/17/2024 1 [facility] - DOS ON OR AFTER 2022 - MEDICARE [place]VANTAGE [place] (MEDICARE REPLACEMENT/AD VANTAGE - PPO) Aaliyah Light [id number] Aaliyah Light Notes Date Note Type Note Provider Name and Address Organization Details Recorded Time 4 text/html Pt is seen for an initial intake visit. PMH: Afib on eliquis, dementia, DM, falls, HTN, HLD, PVD, UTI Aaliyah was seen at [facility] for a fall and sent to [...] management On exam, Aaliyah is an elderly Maori speaking female lying in bed with her [...] she is cooperative and pleasant with this FIELD SERVICE ANALYST. She states she hurts all over but [...] per HCP daughter Cleo De La Paz, FIELD SERVICE ANALYST [address], [address], [place], [address], [facility] [facility] 02/09/2024 19:34:16 4 text/html Pt is seen for an acute rounding visit. PMH: Afib on eliquis, dementia, DM, falls, HTN, HLD, PVD, UTI Aaliyah was seen at [facility] for a fall and sent to [...] she is reassured of her meds. This FIELD SERVICE ANALYST went through each medication and reviewed it [...] per HCP daughter Cleo De La Paz, FIELD SERVICE ANALYST [address], [address], [place], [address], [facility] [employer] 02/10/2024 10:02:06 4 text/html This is a [...] changed to ceftriaxone on the morning of 11/17. U cultures, blood cultures negative till date. [...] lispro sliding scalePOCT AC, at bedtimeA-fib(I48.91):Rat e [id number]-[id number] coagulation-on Eliquis Tonight she is in bed, awake. She tells me she's feeling ok, but is scared because she doesn't know if she's going to get better. Gets tearful at times.I see her with a egyptian speaking staff member, but she answers in greenlandic often, and sometimes answers my questions before he translates them. Her PMH includes HTN, Afib on Eliquis, dementia, AODM, HLD, PVD, UTIs and frequent falls. Jane Anderson MD [address], [address], [place], [address], [facility] [facility] 02/15/2024 14:55:48 4 text/html I am seeing this 78 yo woman today for an acute visit to f/u rib pain and progress in rehab .She denies pain, but often gets tearful. When I ask her what kind of place this is, she tells me it's a place people come to .I see her with a egyptian speaking staff member, but she answers in greenlandic often, and sometimes answers my questions before he translates them. Her PMH includes HTN, Afib on Eliquis, dementia, AODM, HLD, PVD, UTIs and frequent falls. Jane Anderson MD [address], [address], [place], [address], [facility] [employer] [facility] 03/16/2024 16:10:08 4 text/html Pt is seen for an acute rounding visit. Her PMH includes HTN, Afib on Eliquis, dementia, AODM, HLD, PVD, UTIs and frequent falls.I Aaliyah is a 78 yo woman who was seen at [facility] for a fall and sent to [...] per HCP daughter Cleo De La Paz, FIELD SERVICE ANALYST [address], [address], [place], [address], [facility] [facility] 02/24/2024 20:17:01 OBGyn Episode No OBEpisode recorded.
[2024-09-21 14:01] LABS: Alanine Aminotransferase 19 U/L (0-31); Albumin Level 4.7 g/dL (3.5-5.0); Alkaline Phosphatase 64 U/L (39-117); Anion Gap 13 (12-20); Aspartate Amino Transferase 30 U/L (5-31); Blood Urea Nitrogen 17 mg/dL (9-16); Calcium 10.4 mg/dL (8.4-10.2); Carbon Dioxide 29 mmol/L (22-29); Chloride 104 mmol/L (96-108); Cholesterol 147 mg/dL (<200); Estimated Glomerular Filt Rate > 60; HDL Cholesterol 39 mg/dL (>40); Potassium 5.2 mmol/L (3.3-5.1); Sodium 141 mmol/L (135-145); Total Protein 7.6 g/dL (6.5-8.0); Triglycerides 127 mg/dL (<150)
[2024-09-21 14:10] LABS: Folate 9.0 ng/mL (> or = 4.0); Vitamin B12 343 pg/mL (200-900)
[2024-09-21 14:16] LABS: Microalbum/Creatinine Ratio Ur 13.9 ug/mg cr (<30)
[2024-09-21 14:22] LABS: Reflex LDLD? No
== END 2024-09-21 11:09 | disposition home or self-care (01) ==
LOC: HO.HHCL 11:08
PROVIDERS: PCP Family Medicine; Visit Provider Family Medicine
DX: E11.9 Type 2 diabetes mellitus without complications (principal); E89.0 Postprocedural hypothyroidism
CPT/HCPCS: 36415; 80053; 80061; 82043; 82570; 82607; 82746; 84443

== ENCOUNTER 2024-11-08 09:26 | Outpatient (REF) | payer OTHER, SELFPAY ==
--- OUTSIDE RECORDS SUMMARY | 2024-01-18 12:45 | XMS_ITS | Encounter Summary ---
Author Organization [facility] Address [address] [place] [address] Care Team Providers Care Medical Office Coordinator Name Role Phone Unavailable Primary Care Provider Unavailabl e Encounter Details Date Type Department Care Team (Late st Contact Info) Description 01/18/2024 12:45 PM EDT Hospital Encounter TH HISTORIC ENCOUNTERS EASTERN CONVERSION ONLY Lia Ortega MD [address] [facility] [address] [place] [address] Social History Tobacco Use Types Packs/Day Years [...] family gathering she used to go to pentec[employer]al she is unable to anymore she was [...] certain foods and avoiding excessive caffeine/NSAIDs. -RTC [id number] for follow up The patient and I [...] 50 minutes. The majority of the actual [id number] visit was spent counseling the patient with respect to the current neurological picture. Lia Ortega MD documented in this encounter Plan of Treatment Upcoming Encounters Date Type Department Care Team (Late st Contact Info) Description 11/23/2024 3:00 PM EDT Office Visit [facility] [address] [place] [id number] Lia Ortega MD [address] [place] [address] documented as of this encounter Visit Diagnoses Not on filedocumented in this encounter
--- NOTE | ~2024-11-08 | MM_ITS ---
EXAMINATION: MM SCREENING DIGITAL BREAST TOMOSYNTHESIS, BILATERAL CLINICAL INFORMATION: Screening. Asymptomatic. COMPARISON: Mammography: Comparison is made with available priors TECHNIQUE: Digital breast mammography with tomosynthesis is performed in both the craniocaudal and mediolateral oblique views along with computer-aided detection (CAD). FINDINGS: The breasts are heterogeneously dense, which may obscure small masses (ACR BI-RADS breast composition Category c). There are no significant masses, abnormal calcifications, or other abnormalities. MM/MM tomosynthesis screening BI IMPRESSION: No mammographic evidence of malignancy. ASSESSMENT: BI-RADS BI-RADS 1 - Negative RECOMMENDATION: Routine annual mammography screening. 1 year F/U This examination should not preclude the clinical evaluation of a suspicious palpable abnormality. This patient's information was entered into a reminder system with a target due date for their next mammogram. Electronically signed by: Lisa Hayes DO 11/09/2024 04:54 PM EDT
--- OUTSIDE RECORDS SUMMARY | 2024-11-08 10:09 | XMS_ITS | Encounter Summary ---
Author Organization [employer] Address [address] [place] [address] Care Team Providers Care Guest Attendant Name Role Phone Sarai Trejo MD Primary Care Provider [phone] Encounter Details Date Type Department Care Team ([facility] st Contact Info) Description 01/11/2024 Orders Only [facility] MEDICINE [address] [place], [place] [phone] Sarai Trejo MD [address] [place], [place] [phone] Social History Tobacco Use Types Packs/Day Years [...] Care Team (Late st Contact Info) Description 11/21/2024 10:00 AM EDT Office Visit [facility] ADULT DENTAL [address] [place] [address] Lester Terrazas DDS [address] [place] [address] 12/11/2024 10:00 AM EDT Office Visit [facility] MEDICINE [address] [place] [address] Sarai Trejo MD [address] [place], [place] [phone] documented as of this encounter Goals Goal Patient Goal Type Associated Problems Recent Progress Patient-Stated? Author Blood Pressure < 140/90 Blood Pressure 148/66(2024 10:27 AM EDT) No Yury Bee, PharmD Hemoglobin A1c < 7 Result Component 7.1( 10:30 AM EDT) No Yury Bee, PharmRosy documented as of this encounter Visit Diagnoses Not on filedocumented in this encounter Additional Health Concerns Assessment Noted Time PHQ-9 Depression Total Score: 0 08/12/19 24 11:13 AM EDT documented as of this encounter Care Teams Guest Attendant Relationship Specialty Start Date End Date Sarai Trejo MD [address] [place], [place] [phone] PCP - General Family Medicine 03/22/18 documented as of this encounter
--- OUTSIDE RECORDS SUMMARY | 2024-11-08 10:09 | XMS_ITS | Clinical Summary ---
Author Organization [facility] Address [address] [phone] Care Team Providers Care [employer] Name Role Phone Unavailable Primary Care Provider [...]
--- OUTSIDE RECORDS SUMMARY | 2024-11-08 10:10 | XMS_ITS | Patient Health Record ---
Author Organization [facility] Address [address] [place] [address] Care Team Providers Care Weight Loss Centre Manager Name Role Phone Neil DOTY, Sarai Primary Care Provider Sergey Mathews Unavailable [phone] Allergies No Known Allergies Reason For Referral [...] Status Risk Notes Problem Irritable bowel syndrome (K58.9) Active confirmed Problem Screening for malignant neoplasm of colon (192207693) Encounter for screening for malignant neoplasm of colon (Z12.11) Active confirmed Problem 06750827 Irritable bowel syndrome without diarrhea (K58.9) Active confirmed Problem Family History of Cancer of Colon (Situation) (476638689) Family history of colon cancer (Z80.0) Active confirmed Problem 637641002 Abdominal pain, right upper quadrant (R10.11) Active confirmed Problem 081924428 Abnormal CT of the abdomen (R93.5) Active confirmed Problem 19092758 Irritable bowel syndrome with both constipation and diarrhea (K58.2) Active confirmed Problem 820121271 RUQ pain (R10.11) Active confirmed Problem 366895542 Acute biliary pancreatitis without infection or necrosis (K85.10) Active confirmed Problem 642934990 Abdominal wall pain in right upper quadrant (R10.11) Active confirmed Plan Of Treatment Pending Test Test Name Order Date BUN 03/27/2015 CREATININE 03/27/2015 LIVER PROFILE 03/27/2015 Future Test Test Name Order Date COLONOSCOPY 07/10/2014 COLONOSCOPY 04/17/2020 Insurance Providers Payer Name Payer Address Payer Phone Subscriber Number Group Number Insured Name Patient Relationship to Insured Coverage Start Date Coverage End Date [facility] [address] [address] [place] [phone] [id number] JAYLEN RONDON Self - patient is the insured Medical (General) History Medical History History ICD Code Colonoscopies in 2003 and 03-28-2009--both negative for polyps-did have diverticulosis and hemorrhoids Osteoporosis Back pain Depression Denies RI,CVA,renal disease COPD NIDDM Neuropathy GERD Hypothroidism Negative [...]
--- OUTSIDE RECORDS SUMMARY | 2024-11-08 10:10 | XMS_ITS | Clinical Summary ---
Author Organization [facility] Address [address] [place] [address] Phone Care Team Providers Care Sagger Filler Name Role Phone Sarai Trejo MD Primary Care Provider [phone] Allergies Active Allergy Reactions Criticality Noted Date Comments Fish 06/30/2022 Other reaction(s): white fish Tramadol 09/15/2021 Medications amLODIPine (NORVASC) 5 MG tablet Take 5 mg by mouth every morning. Active aspirin 81 MG EC tablet Take 81 mg by mouth nightly at bedtime. at bedtime. Active atorvastatin (LIPITOR) 40 MG tablet Take 40 mg by mouth nightly at bedtime. at bedtime. Active levothyroxine (SYNTHROID, LEVOTHROID) 88 MCG tablet Take 88 mcg by mouth every morning. Active metFORMIN (GLUCOPHAGE-XR) 500 MG 24 hr tablet Take 500 mg by mouth. Take 2 tabs twice daily, in the morning and in the evening with meals. Active metoprolol tartrate (LOPRESSOR) 25 MG tablet Take 25 mg by mouth 2 (two) times a day. Active montelukast (SINGULAIR) 10 mg tablet Take 10 mg by mouth nightly at bedtime. Active multivitamin per tablet Take 1 tablet by mouth daily. 3 Active senna (SENOKOT) 8.6 mg tablet Take 8.6 mg by mouth 2 (two) times a day as needed. 4 Active pantoprazole (PROTONIX) 40 MG tablet Take 40 mg by mouth daily. Active UNILET LANCET 33 gauge Misc Inject 1 each into the skin daily. 3 Active hydrocortisone 1 % cream Apply 1 Application topically 2 (two) times a day. Active fluticasone propion-salmete roL (ADVAIR DISKUS) 250-50 mcg/dose DISKUS Inhale 250 mcg/actuation of fluticasone into the lungs 2 (two) times a day. Active ONETOUCH ULTRA TEST Strp strips Inject 1 each into the skin daily. 3 Active acetaminophen (TYLENOL) 500 MG tablet Take 500 mg by mouth every 8 (eight) hours as needed. 4 Active repaglinide (PRANDIN) 2 mg tablet Take 2 mg by mouth 2 (two) times a day before meals. Active magnesium oxide 250 mg (150 mg elemental) Tab Take 400 mg by mouth daily. Active VENTOLIN HFA 90 mcg/actuation inhaler Inhale 2 puffs into the lungs every 6 (six) hours as needed. 4 Active Active Problems Problem Noted Date Diagnosed Date Other osteoporosis without current pathological fracture 04/21/2023 Assessment & Plan (06/06/2024 11:54 AM EDT): The patient is currently taking a multivitamin plus possibly vitamin D supplement. I asked her to bring in or medications that she is taking specifically calcium magnesium and vitamin D supplements on the follow-up visit. She is due for repeat infusion of zoledronic acid on 07/06/2024 this has been requested. She is also due for repeat DXA scan on 12/23/2024 and this has been requested but I informed the patient and her son that they need to call the radiology department to schedule it. She should obtain lab work fasting prior to the follow-up visit. Assessment & Plan (06/03/2023 12:26 PM EDT): The patient has multiple risk factors for [...] and this will be done at [address] at [facility]. She states that she is willing to do this. I also suggest that she take a small calcium tablet at least once a day with food because I think it may be helpful. She is apparently taking vitamin D supplements in the morning. Assessment & Plan (04/21/2023 4:06 PM EST): This is a patient who was said to be diagnosed with osteoporosis in 2000. Her risk factors for osteoporosis include age, menopause, history of Graves' disease, use tricyclic antidepressants amitriptyline, use of antiepileptic medications topiramate, use of proton pump inhibitors omeprazole, use of intra-articular corticosteroids, remote tobacco use. She possibly had a fracture of the shoulder but her memory is poor also is on certain. She has had 1-1/2 inches decrease in height. She has use alendronate for over 5 years. Informs me that she is currently not using it. Alendronate was resumed in 2020 but unclear when it was stopped. She states she is presently not using the medication. The patient believes that alendronate is not working but she definitely had an improvement in bone mineral density of the spine on 12/23/2022 there was a significant increase in bone mineral density of the spine and the hip remained stable. At this point I would like to do biochemical workup for secondary causes of osteoporosis. I found that her PTH was low at 11 PG/mL and serum calcium was 10.7 on review of labs. So this is quite odd. She has not had any surgeries of her neck and she is quite adamant about and recalls getting radioactive iodine ablation. Once I have done a full biochemical workup and I do not find any other etiologies for osteoporosis we can consider management for osteoporosis. I asked the patient to bring in a full list of medications on the follow-up visit because I really need to review her meds. Good to know how much calcium and vitamin D is in the multivitamins because this is not listed. I was not able to send the PCP notes electronically. I asked the patient to give a copy of today's note. Family History Medical History Relation Comments Alcohol abuse Father Diabetes Mother Relation Status Comments Father Mother Social History Tobacco Use Types Packs/Day Years Used Date Smoking Tobacco: Former Cigarettes Smokeless Tobacco: Never Education Answer Date Recorded Are you interested in more education? Not on jada e 07/17/2022 Are you concerned about learning? Not on file 07/17/2022 No 07/17/2022 No 07/17/2022 Digital Access Answer Date Recorded No 08/18/2022 No 08/18/2022 Reliable internet access at home? Not on file 08/18/2022 Device with a working camera? Not on file Comments Unknown Sex and Gender Information Value Date Recorded Sex Assigned at Not on file Legal Sex Female 12:39 PM EDT Gender Identity Not on file Sexual Orientation Not on file Last Filed Vital Signs Vital Sign Reading Time Taken Comments Blood Pressure 128/66 06/06/2024 11:38 AM EDT Pulse 84 06/06/2024 11:38 AM EDT Temperature 36 C (96.8 F) 07/07/2023 11:24 AM EDT Respiratory Rate 18 07/07/2023 12:25 PM EDT Oxygen Saturation 92% 06/06/2024 11:38 AM EDT Inhaled Oxygen Concentration - - Weight 74.4 kg (164 lb) 06/06/2024 11:38 AM EDT Height 148.1 cm (4' 10.31 ) 06/06/2024 11:38 AM EDT Body Mass Index 33.92 06/06/2024 11:38 AM EDT Plan of Treatment Upcoming Encounters Date Type Department Care Team (Late st Contact Info) Description 06/06/2025 11:30 AM EDT Office Visit [facility] [address] [place] [address] [place] [address] Zach Guzmán DO [address] [place] [id number] Health Maintenance Due Date Last Done Comments LIPID PANEL 1944 TSH LEVEL 1944 DEPRESSION SCREENING 1956 SMOKING Hx and SMOKELESS TOBACCO SCREENING 1957 HEPATITIS C SCREENING 1962 ZOSTER VACCINES (1 of 2) 1994 OSTEOPOROSIS SCREENING INITIAL (ONE-TIME) 2009 PNEUMOCOCCAL VACCINES (50+ years) (2 of 2 - PCV) 11/13/2014 11/13/2013, 01/30/2005 RSV VACCINE (1 - 1-dose 75+ series) 12/14/2019 COVID-19 VACCINE (2 - season) 2023 04/18/2021 CREATININE LEVEL 06/06/2025 06/06/2024, , 06/03/2023, Additional history exists Adult Td,Tdap Booster 07/13/2026 07/13/2016 HEPATITIS A VACCINES Aged Out No long er eligible based on patient's age to complete this topic HIB VACCINES Aged Out No longer eligi ble based on patient's age to complete this topic MENINGOCOCCAL VACCINES (ACWY) Aged Out No longer eligible based on patient's age to complete this topic MENINGOCOCCAL VACCINES (B) Aged Out N o longer eligible based on patient's age to complete this topic Medical Devices Not on file Procedures Procedure Name Priority Date/Time Associated Diagnosis Comments BASIC METABOLIC PANEL Routine 06/06/2024 12:31 PM EDT Other osteoporosis without current pathological fracture from Last 3 Months or Most Recently Relevant to Health Maintenance Results * (ABNORMAL) Basic metabolic panel (06/06/2024 12:31 PM EDT) SODIUM 140 133 - 146 mmol/L [facility] CHLORIDE 101 96 - 108 mmol/L [facility] POTASSIUM 4.7 3.3 - 5.1 mmol/L [facility] CO2 30 21 - 35 mmol/L [facility] BUN 21(H) 6 - 19 mg/dL [facility] CREATININE 0.60 0.5 - 1.5 mg/dL [facility] GLUCOSE 128(H) 70 - 99 mg/dL [facility] CALCIUM 10.6(H) 8.4 - 10.3 mg/dL [facility] EGFR 91 >59 mL/min/1.7 3m2 [facility] Comment:Estimated glomerular filtration rate calculated using the CKD-EPI refit equation. ANION GAP 14 10 - 20 mmol/L [facility] Blood 06/06/2024 12:3 1 PM EDT 06/06/2024 12:37 PM EDT us Zach Guzmán DO LAB BLOOD ORDERABLES Final Resul t [facility] [address] [place], [place] [phone] from Last 3 Months or Most Recently Relevant to Health Maintenance Insurance MEDICARE PART A & B Member Subscriber Plan / Payer (Ef fective 2010-Present) Name:Aaliyah Light I Member ID:[id number] Relation to Subscriber:Self Name:Aaliyah Light I Subscriber ID:[id number] Payer ID:[id number] Group ID:Not on file Type:Medicare Address: [facility] [employer] [facility] [address] [place] [phone] MEDICARE PART A & B MEDICARE REPLACEMENT MEDICARE REPLACEMENT [place] [id number] MEDICARE PART A & B Member Subscriber Plan / Payer (Ef fective 2010-Present) Name:Aaliyah Light I Member ID:[id number] Relation to Subscriber:Self Name:Aaliyah Light Kimberly Subscriber ID:[id number] Payer ID:[id number] Group ID:Not on file Type:Medicare Address: [facility] [address] [place] [phone] [place] [id number] [place] [id number] MEDICARE PART A & B Member Subscriber Plan / Payer (Ef fective 2019-Present) Name:Aaliyah Light I Relation to Subscriber:Self Name:Aaliyah Light I Payer ID:[id number] (NAIC) Group ID:Not on file Type:Medicare Address: [place] [id number] MEDICARE PART A & B MEDICARE PART A & B Care Teams Sagger Filler Relationship Specialty Start Date End Date Sarai Trejo MD [address] [place] [id number] PCP - General Family Medicine 06/06/24 Additional Source Comments The information contained in this document represents components of the legal health record. It is not the complete legal health record.[facility]
== END 2024-11-08 09:27 | disposition home or self-care (01) ==
LOC: HO.MAMMO 09:26
PROVIDERS: PCP Family Medicine; Visit Provider Family Medicine
DX: Z12.31 Encounter for screening mammogram for malignant neoplasm of breast (principal)
CPT/HCPCS: 77063; 77067

== ENCOUNTER → 2024-11-08 09:45 | Outpatient (BNV) | payer OTHER, SELFPAY | PROVIDERS: PCP Family Medicine; Visit Provider Internal Medicine | DX: Z12.31 Encounter for screening mammogram for malignant neoplasm of breast (principal) | CPT/HCPCS: 77063; 77067 ==

== ENCOUNTER 2024-12-11 10:37 | Outpatient (REF) | payer OTHER, SELFPAY ==
--- OUTSIDE RECORDS SUMMARY | 2024-01-18 12:45 | XMS_ITS | Encounter Summary ---
Author Organization [facility] Address [address] [place] [address] Care Team Providers Care Senior Technical Architect Name Role Phone Unavailable Primary Care Provider Unavailabl e Encounter Details Date Type Department Care Team (Late st Contact Info) Description 01/18/2024 12:45 PM EDT Hospital Encounter TH HISTORIC ENCOUNTERS EASTERN CONVERSION ONLY Lia Ortega MD [address] [place] [address] Social History Tobacco Use Types Packs/Day Years [...] family gathering she used to go to hindu she is unable to anymore she was [...] certain foods and avoiding excessive caffeine/NSAIDs. -RTC [id number] for follow up The patient and I [...] 50 minutes. The majority of the actual [id number] visit was spent counseling the patient with respect to the current neurological picture. Lia Ortega MD documented in this encounter Plan of Treatment Not on file documented as of this encounter Visit Diagnoses Not on filedocumented in this encounter
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
--- OUTSIDE RECORDS SUMMARY | 2024-12-11 13:02 | XMS_ITS | Encounter Summary ---
Author Organization [employer] Address [address] [place] [address] Care Team Providers Care Postdoctoral Research Fellow Name Role Phone Sarai Trejo MD Primary Care Provider [phone] Encounter Details Date Type Department Care Team ([facility] st Contact Info) Description 01/11/2024 Orders Only [facility] MEDICINE [address] [place], [place] [phone] Sarai Trejo MD [address] [place], [place] [phone] Social History Tobacco Use Types Packs/Day Years [...] Description 12/21/2024 10:00 AM EDT Office Visit [facility] ADULT DENTAL [address] [place], [place] [phone] Lester Terrazas DDS [address] [place] [address] documented as of this encounter Goals Goal Patient Goal Type Associated Problems Recent Progress Patient-Stated? Author Blood Pressure < 140/90 Blood Pressure 130/68(2024 10:12 AM EDT) No Yury Bee PharmD Hemoglobin A1c < 7 Result Component 7.5( 9:56 AM EDT) No Yury Bee PharmD documented as of this encounter Visit Diagnoses Not on filedocumented in this encounter Additional Health Concerns Assessment Noted Time PHQ-9 Depression Total Score: 0 08/12/19 24 11:13 AM EDT documented as of this encounter Care Teams Postdoctoral Research Fellow Relationship Specialty Start Date End Date Sarai Trejo MD [address] [place] [address] PCP - General Family Medicine 03/22/18 documented as of this encounter
--- OUTSIDE RECORDS SUMMARY | 2024-12-11 13:02 | XMS_ITS | Encounter Summary ---
Author Organization [employer] Address [address] [place] [address] Care Team Providers Care Accounting Manager Cpa Name Role Phone Sarai Trejo MD Primary Care Provider [phone] Encounter Details Date Type Department Care Team ([facility] st Contact Info) Description 04/20/2023 Orders Only [facility] MEDICINE [address] [place], [place] [phone] Sarai Trejo MD [address] [place], [place] [phone] Social History Tobacco Use Types Packs/Day Years [...] Description 12/21/2024 10:00 AM EDT Office Visit [facility] ADULT DENTAL [address] [place] [address] Lester Terrazas DDS [address] [place], [place] [phone] documented as of this encounter Goals Goal Patient Goal Type Associated Problems Recent Progress Patient-Stated? Author Blood Pressure < 140/90 Blood Pressure 130/68(2024 10:12 AM EDT) No Yury Bee, PharmD Hemoglobin A1c < 7 Result Component 7.5( 9:56 AM EDT) No Yury Bee PharmD documented as of this encounter Visit Diagnoses Not on filedocumented in this encounter Care Teams Accounting Manager Cpa Relationship Specialty Start Date End Date Sarai Trejo MD [address] [place] [address] PCP - General Family Medicine 03/22/18 documented as of this encounter
--- OUTSIDE RECORDS SUMMARY | 2024-12-11 13:03 | XMS_ITS | Encounter Summary ---
Author Organization [employer] Address [address] [place] [address] Care Team Providers Care Wax Pattern Coater Name Role Phone Sarai Trejo MD Primary Care Provider [phone] Reason for Visit * Reason Onset Date Comments Reschedule 03/17/2023 Encounter Details Date Type Department Care Team ([facility] st Contact Info) Description 03/17/[address] [facility] MEDICINE [address] [place], [place] [phone] Sarai Trejo MD [address] [place], [place] [phone] Reschedule Social History Tobacco Use Types Packs/Day [...] the past 12 months, has t he [employer] gas, oil or water company threatened to [...] Description 12/21/2024 10:00 AM EDT Office Visit [facility] ADULT DENTAL [address] [place] [address] Lester Terrazas DDS [address] [place] [address] documented as of this encounter Goals Goal Patient Goal Type Associated Problems Recent Progress Patient-Stated? Author Blood Pressure < 140/90 Blood Pressure 130/68(2024 10:12 AM EDT) No Yury Bee, PharmD Hemoglobin A1c < 7 Result Component 7.5( 9:56 AM EDT) No Yury Bee, PharmD documented as of this encounter Visit Diagnoses Not on filedocumented in this encounter Care Teams Wax Pattern Coater Relationship Specialty Start Date End Date Sarai Terjo MD [address] [place] [address] PCP - General Family Medicine 03/22/18 documented as of this encounter
--- OUTSIDE RECORDS SUMMARY | 2024-12-11 13:03 | XMS_ITS | Encounter Summary ---
Author Organization [employer] Address [address] 7t [place] [address] Care Team Providers Care Act English Tutor Name Role Phone Sarai Trejo MD Primary Care Provider [phone] Reason for Visit * Reason Onset Date Comments Lab Orders 02/24/2022 Encounter Details Date Type Department Care Team ([facility] st Contact Info) Description 02/24/2022 Telephone [facility] MEDICINE [address] [place], [place] [phone] Sarai Trejo MD [address] [place], [place] [phone] Lab Orders Social History Tobacco Use Types [...] requesting lab order to be sent [place] [facility] . . Pt informed received a call about 2 weeks ago to get labs done down stairs . Mail Officer was unable to find orders. documented in this encounter Plan of Treatment Upcoming Encounters Date Type Department Care Team (Late st Contact Info) Description 12/21/2024 10:00 AM EDT Office Visit [facility] ADULT DENTAL [address] [place] [address] Lester Terrazas DDS [address] [place] [address] documented as of this encounter Visit Diagnoses Not on filedocumented in this encounter Care Teams Act English Tutor Relationship Specialty Start Date End Date Sarai Trejo MD [address] [place] [address] PCP - General Family Medicine 03/22/18 documented as of this encounter
--- OUTSIDE RECORDS SUMMARY | 2024-12-11 13:03 | XMS_ITS | Encounter Summary ---
Author Organization [employer] Address [address] [place] [address] Care Team Providers Care Fish Checker Name Role Phone Sarai Trejo MD Primary Care Provider [phone] Encounter Details Date Type Department Care Team ([facility] st Contact Info) Description 03/09/2024 Abstract [facility] MEDICINE [address] [place], [place] [phone] [place] Social History Tobacco Use [...] Description 12/21/2024 10:00 AM EDT Office Visit [facility] ADULT DENTAL [address] [place], [place] [phone] Lester Terrazas DDS [address] [place], [place] [phone] documented as of this encounter Goals Goal [...] documented as of this encounter Care Teams Fish Checker Relationship Specialty Start Date End Date Sarai Trejo MD [address] [place] [address] PCP - General Family Medicine 03/22/18 documented as of this encounter
--- OUTSIDE RECORDS SUMMARY | 2024-12-11 13:03 | XMS_ITS | Encounter Summary ---
Author Organization [employer] Address [address] [place] [address] Care Team Providers Care Checker Loader Name Role Phone Sarai Trejo MD Primary Care Provider [phone] Encounter Details Date Type Department Care Team ([facility] st Contact Info) Description 04/27/2023 Orders Only [facility] MEDICINE [address] [place], [place] [phone] Sarai Trejo MD [address] [place], [place] [phone] Social History Tobacco Use Types Packs/Day Years [...] Description 12/21/2024 10:00 AM EDT Office Visit [facility] ADULT DENTAL [address] [place] [address] Lester Terrazas DDS [address] [place], [place] [phone] documented as of this encounter Goals Goal Patient Goal Type Associated Problems Recent Progress Patient-Stated? Author Blood Pressure < 140/90 Blood Pressure 130/68(2024 10:12 AM EDT) No Yury Bee, PharmD Hemoglobin A1c < 7 Result Component 7.5( 9:56 AM EDT) No Yury Bee PharmD documented as of this encounter Visit Diagnoses Not on filedocumented in this encounter Care Teams Checker Loader Relationship Specialty Start Date End Date Sarai Trejo MD [address] [place] [address] PCP - General Family Medicine 03/22/18 documented as of this encounter
--- OUTSIDE RECORDS SUMMARY | 2024-12-11 13:03 | XMS_ITS | Clinical Summary ---
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 TECHNIQUE: Digital breast mammography with tomosynthesis is performed in both the craniocaudal and mediolateral oblique views along with computer-aided detection (CAD). FINDINGS: The breasts are heterogeneously dense, which may obscure small masses (ACR BI-RADS breast composition Category c). There are no significant masses, abnormal calcifications, or other abnormalities. MM/MM tomosynthesis screening BI IMPRESSION: No mammographic evidence of malignancy. ASSESSMENT: BI-RADS BI-RADS 1 - Negative RECOMMENDATION: Routine annual mammography screening. 1 year F/U This examination should not preclude the clinical evaluation of a suspicious palpable abnormality. This patient's information was entered into a reminder system with a target due date for their next mammogram. Electronically signed by: Lisa Hayes DO 11/09/2024 04:54 PM EDT RP Dictated By: Lisa Hayes DO Signed By: <Electronically signed by Lisa Hayes DO in OV> 11/09/24 1654 DD/ 0950 TD/TT: 11/08/24 1015 Freight Service Inspector: Procedure Note Donotuseinterpreter, Image - 11/09/2024 [facility] [address] [place] [address] Mammography Report Signed Patient: Aaliyah Brennan IMR#: [id number] : 5Acct:[id number] Age/Sex: 78 / FADM Date: 11/08/24 Loc: JALIL Attending Dr: Sarai Trejo MD Ordering Physician: Sarai Trejo MDResults: 1Negative Date of Service: 11/08/24Follow Up: 1 Year From Orig inal Mammogram Procedure(s): MM tomosynthesis screening BI Accession Number(s): [id number] cc: Sarai Trejo MD EXAMINATION: MM SCREENING DIGITAL BREAST TOMOSYNTHESIS, BILATERAL CLINICAL INFORMATION: Screening. Asymptomatic. COMPARISON: Mammography: Comparison is made with available priors TECHNIQUE: Digital breast mammography with tomosynthesis is performed in both the craniocaudal and mediolateral oblique views along with computer-aided detection (CAD). FINDINGS: The breasts are heterogeneously dense, which may obscure small masses (ACR BI-RADS breast composition Category c). There are no significant masses, abnormal calcifications, or other abnormalities. MM/MM tomosynthesis screening BI IMPRESSION: No mammographic evidence of malignancy. ASSESSMENT: BI-RADS BI-RADS 1 - Negative RECOMMENDATION: Routine annual mammography screening. 1 year F/U This examination should not preclude the clinical evaluation of a suspicious palpable abnormality. This patient's information was entered into a reminder system with a target due date for their next mammogram. Electronically signed by: Lisa Hayes DO 11/09/2024 04:54 PM EDT Dictated By: Lisa Hayes DO Signed By: <Electronically signed by Lisa Hayes DO in OV> 11/09/24 1654 DD/ 0950 TD/TT: 11/08/24 1015 Freight Service Inspector: Sarai Trejo MD IMG BI PROCEDURES Final Result * Vitamin B12 (Cobalamin) and Folate Panel, Serum (09/21/2024 11:13 AM EDT) Vitamin B12 343 200 - 900 pg/mL [facility] Comment:NORMAL 200-900 PG/ML INDETERMINATE 160-199 PG/ML DEFICIENT < 160 PG/ML Folate 9.0 > or = 4.0 ng/mL [facility] Comment:Reference Values:> o r = 4.0 ng/mL< 4.0 ng/mL suggests folate deficiency Methotrexate, aminopterin and folinic acid(leucovorin) are chemotherapeutic agents whose molecularstructures are similar to folate; therefore, the Architectfolate assay cannot be used for patients using these drugs. Blood 09/21/2024 11:1 3 AM EDT 09/21/2024 1:09 PM EDT Sarai Trejo MD LAB BLOOD ORDERABLES Final Resul t Performing Organization Address City/[facility]/ZIP Co de Phone Number [facility] [address] [place] [phone] * TSH with Reflex to Free T4 (09/21/2024 11:13 AM EDT) TSH reflex Free T4 1.03 0.32 - 4.0 uIU/mL [facility] Blood 09/21/2024 11:1 3 AM EDT 09/21/2024 1:09 PM EDT us Sarai Trejo MD LAB BLOOD ORDERABLES Final Resul t Performing Organization Address [facility] Co de Phone Number [facility] [address] [place] [address] [phone] * (ABNORMAL) Lipid Panel with Reflex to Direct LDL (09/21/2024 11:13 AM EDT) Triglycerides 127 <150 mg/dL [facility] Comment:Desirable Triglyceri de: less than 150 mg/dLBorderline High Triglyceride 150-199 mg/dLHigh Triglyceride: 200-499 mg/dLVery High Triglyceride: greater than or equal to 5OO mg/dL Cholesterol 147 <200 mg/dL [facility] Comment:Desirable Cholestero l: less than 200 mg/dLBorderline High Cholesterol: 200-239 mg/dLHigh Cholesterol: greater than 239 mg/dL LDL Cholesterol Calculated 83 <100 mg/dL [facility] Comment:Desirable LDL: less than 100 mg/dLNear Optimal/Above Optimal LDL: 110- 129 mg/dLBorderline High LDL: 130-159 mg/dLHigh LDL: 160-189 mg/dLVery High LDL: greater than or equal to 190 mg/dL HDL Cholesterol 39(L) >40 mg/dL [facility] Comment:Desirable HDL: great er than 40 mg/dL Note: This HDL assay may give artificially low results in patients with liver disease. Blood 09/21/2024 11:1 3 AM EDT 09/21/2024 1:09 PM EDT Sarai Trejo MD LAB BLOOD ORDERABLES Final Resul t Performing Organization Address [facility] de Phone Number [facility] [address] [place] [phone] * Albumin, Random Urine W/Creatinine (09/21/2024 11:13 AM EDT) Creatinine, Urine 93.27 mg/dL [facility] Microalbumin Urine 13.0 mg/L [facility] Microalbum Creatinine Ratio Ur 13.9 <30 ug/mg cr [facility] Comment:Albumin/Creatinine R atio Reference Ranges: Normal: < 30 ug/mg creatinine Microalbuminuria: 30 - 300 ug/mg creatinineClinical Albuminuria: > 300 ug/mg creatinine Urine 09/21/2024 11:1 3 AM EDT 09/21/2024 12:58 PM EDT Sarai Trejo MD LAB URINE ORDERABLES Final Resul t Performing Organization Address [facility] Number [facility] [address] [place] [phone] * (ABNORMAL) Comprehensive Metabolic Panel (09/21/2024 11:13 AM EDT) Sodium 141 135 - 145 mmol/L [facility] Potassium 5.2(H) 3.3 - 5.1 mmol/L [facility] Chloride 104 96 - 108 mmol/L [facility] Carbon Dioxide 29 22 - 29 mmol/L [facility] Anion Gap 13 12 - 20 [facility] Urea Nitrogen (BUN) 17(H) 9 - 16 mg/dL [facility] Creatinine, Serum 0.63 0.5 - 1.4 mg/dL [facility] Estimated Glomerular Filt Rate >60 [facility] Comment:Chronic Kidney Disea se: Estimated GFR < 60 mL/min/1.61s3Ccydae Kidney Disease: Estimated GFR < 15 mL/min/1.73m2 Glucose 148(H) 60 - 115 mg/dL [facility] Calcium 10.4(H) 8.4 - 10.2 mg/dL [facility] Bilirubin, Total 0.5 0.0 - 1.0 mg/dL [facility] Aspartate Amino Transferase 30 5 - 31 U/L [facility] Alanine Aminotransferase 19 0 - 31 U/L [facility] Total Protein 7.6 6.5 - 8.0 g/dL [facility] Albumin Level 4.7 3.5 - 5.0 g/dL [facility] Alkaline Phosphatase 64 39 - 117 U/L [facility] Blood Venous blood specimen / Unknown 09/21/2024 11:13 AM EDT 09/21/2024 1:09 PM EDT Sarai Trejo MD LAB BLOOD ORDERABLES Final Resul t Performing Organization Address City/State/[facility] Co de Phone Number [facility] [address] [place] [phone] * Diabetes Eye Exam (10/07/2023) [facility] Signature Eye Exam Normal Normal Historical Provider HEALTH MAINTENANCE Final Result from Last 3 Months or Most Recently Relevant to Health Maintenance Insurance [facility] DUAL COMPLETE Care Teams Manager Banquet Relationship Specialty Start Date End Date Sarai Trejo MD [address] [place] [phone] PCP - General Family Medicine 03/22/18
--- OUTSIDE RECORDS SUMMARY | 2024-12-11 13:03 | XMS_ITS | Encounter Summary ---
Author Organization [employer] Address [address] [place] [address] Care Team Providers Care Engineering Intern Name Role Phone Sarai Trejo MD Primary Care Provider Reason for Visit * Reason Onset Date Comments PT1 08/20/2023 Encounter Details Date Type Department Care Team ([facility] st Contact Info) Description 08/20/2023 Telephone [facility] MEDICINE [address] [place], [place] [phone] Sarai Trejo MD [address] [place], [place] [phone] PT1 Social History Tobacco Use Types Packs/Day [...] Y/N: Yes Provider name or facility name: [facility] Facility Address: [address] [place] [address] Escort needed: Y/N: No Do you have a wheelchair: Y/N: No If yes- Manual or electric: Visits: 3-4 times a month Pt has an appt for 08/26/23 @1PM documented in this encounter Plan of Treatment Upcoming Encounters Date Type Department Care Team ([facility] st Contact Info) Description 12/21/2024 10:00 AM EDT Office Visit [facility] ADULT DENTAL [address] [place] [address] Lester Terrazas DDS [address] [place] [address] documented as of this encounter Goals Goal [...] documented as of this encounter Care Teams Engineering Intern Relationship Specialty Start Date End Date Sarai Trejo MD [address] [place] [address] PCP - General Family Medicine 03/22/18 documented as of this encounter
--- OUTSIDE RECORDS SUMMARY | 2024-12-11 13:03 | XMS_ITS | Encounter Summary ---
Author Organization [employer] Address [address] [place] [address] Care Team Providers Care Auxiliary Equipment Operator Name Role Phone Sarai Trejo MD Primary Care Provider [phone] Encounter Details Date Type Department Care Team ([facility] st Contact Info) Description 01/14/2023 Orders Only [facility] MEDICINE [address] [place], [place] [phone] Kacie Rojas MD [address] [place], [place] [phone] Hypercalcemia (Primary Dx) Social History Tobacco Use [...] Description 12/21/2024 10:00 AM EDT Office Visit [facility] ADULT DENTAL [address] [place], [place] [phone] Lester Terrazas DDS [address] [place], [place] [phone] Scheduled Orders Name Type Priority Associated Diagnoses [...] Bilirubin, Total 0.8 0.0 - 1.0 mg/dL [facility] Bilirubin, Direct 0.2 0.0 - 0.5 mg/dL [facility] Aspartate Amino Transferase 29 5 - 31 U/L [facility] Alanine Aminotransferase 23 0 - 31 U/L [facility] Total Protein 8.0 6.5 - 8.0 g/dL [facility] Albumin Level 4.4 3.5 - 5.0 g/dL [facility] Alkaline Phosphatase 71 39 - 117 U/L [facility] Blood Venous blood specimen / Unknown 01/27/2023 11:57 AM EST 01/27/2023 11:59 AM EST Kacie Rojas MD LAB BLOOD ORDERABLES Final Result [facility] [address] [place] [phone] * Vitamin D, 25-Hydroxy, Total, Immunoassay (01/27/2023 11:57 AM EST) Vitamin D 25-OH Total 33.2 >30 ng/mL [facility] Comment:Health Based Referen ce Values*< 20 ng/mL Dljvdtsun04-61 ng/mL Insufficient> 30 ng/mL Sufficient*Hanna GRANT. N [...] BLOOD ORDERABLES Final Result Performing Organization Address [facility] Co de Phone Number [facility] [address] [place] [phone] * (ABNORMAL) Calcium (01/27/2023 11:57 AM EST) Calcium 10.7(H) 8.4 - 10.2 mg/dL [facility] Blood Venous blood specimen / Unknown 01/27/2023 11:57 AM EST 01/27/2023 11:59 AM EST Kacie Rojas MD LAB BLOOD ORDERABLES Final Result Performing Organization Address [facility] de Phone Number [facility] [address] [place] [phone] * (ABNORMAL) PTH, Intact Without Calcium (01/27/2023 11:57 AM EST) PTHI 11(A) 16 - 77 pg/mL [facility] Comment:Interpretive Guide I ntact PTH Calcium -------Normal Parathyroid Normal NormalHypoparathyroidism Low or Low Normal LowHyperparathyroidism Primary Normal or High High Secondary High Normal or Low Tertiary High HighNon-Parathyroid Hypercalcemia Low or Low Normal High Calcium (PTHI) 10.7(A) 8.6 - 10.4 mg/dL [facility] Comment:THIS TEST WAS PERFOR MED AT:[employer] [place] [phone] ROSARIO MD Blood Venous blood specimen / Unknown 01/27/2023 11:57 AM EST 01/27/2023 11:59 AM EST Kacie Rojas MD LAB BLOOD ORDERABLES Final Result Performing Organization Address [facility] Co de Phone Number [facility] [address] [place] [phone] documented in this encounter Visit Diagnoses Diagnosis Hypercalcemia- Primary documented in this encounter Care Teams Auxiliary Equipment Operator Relationship Specialty Start Date End Date Sarai Trejo MD [address] [place] [phone] PCP - General Family Medicine 03/22/18 documented as of this encounter
--- OUTSIDE RECORDS SUMMARY | 2024-12-11 13:03 | XMS_ITS | Encounter Summary ---
Author Organization [employer] Address [address] [facility] 7t [place] [address] Care Team Providers Care Operations Support Representative Name Role Phone Sarai Trejo MD Primary Care Provider [phone] Encounter Details Date Type Department Care Team (Late st Contact Info) Description 04/30/2022 Orders Only [facility] CHC MED & PEDS [address] [place], [place] [phone] Sona Manzo LPN Social History Tobacco Use [...] Description 12/21/2024 10:00 AM EDT Office Visit [facility] ADULT DENTAL [address] [place] [address] Lester Terrazas DDS [address] [place] [address] documented as of this encounter Visit Diagnoses Not on filedocumented in this encounter Care Teams Operations Support Representative Relationship Specialty Start Date End Date Sarai Trejo MD [address] [place] [address] PCP - General Family Medicine 03/22/18 documented as of this encounter
--- OUTSIDE RECORDS SUMMARY | 2024-12-11 13:03 | XMS_ITS | Encounter Summary ---
Author Organization [employer] Address [address] [place] [address] Care Team Providers Care Pie Baker Name Role Phone Sarai Trejo MD Primary Care Provider Encounter Details Date Type Department Care Team ([facility] st Contact Info) Description 12/08/2024 Telephone [facility] WALK-IN CENTER [address] [place], [place] [phone] Debbie Kimble MA Social History Tobacco Use Types Packs/Day [...] Miscellaneous Notes * Telephone Encounter - Debbie Kimble MA - 12/08/2024 1:25 PM EDT Chart Prep Labs: done Images: done Referrals: not applicable Vaccines due: Covid and Flu Screenings: not applicable Overdue care gaps: A1c and Glucose documented in this encounter Plan of Treatment Upcoming Encounters Date Type Department Care Team (Late st Contact Info) Description 12/21/2024 10:00 AM EDT Office Visit [facility] ADULT DENTAL [address] [place], [place] [phone] Lester Terrazas DDS [address] [place], [place] [phone] documented as of this encounter Goals Goal [...] documented as of this encounter Care Teams Pie Baker Relationship Specialty Start Date End Date Sarai Trejo MD [address] [place] [address] PCP - General Family Medicine 03/22/18 documented as of this encounter
--- OUTSIDE RECORDS SUMMARY | 2024-12-11 13:03 | XMS_ITS | Clinical Summary ---
Author Organization [facility] Address [address] [place] [address] Phone Care Team Providers Care Checkman Name Role Phone Sarai Trejo MD Primary Care Provider [phone] Allergies Active Allergy Reactions Criticality Noted Date [...] and this will be done at [address] at [facility]. She states that she is willing [...] 11:30 AM EDT Office Visit [facility] [address] [place] [address] [place] [address] Zach Guzmán DO [address] [place] [phone] Health Maintenance Due Date Last Done Comments LIPID PANEL 1945 TSH LEVEL 1945 DEPRESSION SCREENING 1956 SMOKING Hx and SMOKELESS TOBACCO SCREENING 1957 HEPATITIS C SCREENING 1962 ZOSTER VACCINES (1 of 2) 1994 OSTEOPOROSIS SCREENING INITIAL (ONE-TIME) 2009 PNEUMOCOCCAL VACCINES (50+ years) (2 of 2 - PCV) 11/13/2014 11/13/2013, 01/30/2005 RSV VACCINE (1 - 1-dose 75+ series) 12/14/2019 INFLUENZA VACCINE (#1) 2024 COVID-19 VACCINE (2 - 2024- season) 2024 04/18/2021 CREATININE LEVEL 06/06/2025 06/06/2024, , 06/03/2023, [...] EDT) SODIUM 140 133 - 146 mmol/L [facility] CHLORIDE 101 96 - 108 mmol/L [facility] POTASSIUM 4.7 3.3 - 5.1 mmol/L [facility] CO2 30 21 - 35 mmol/L [facility] BUN 21(H) 6 - 19 mg/dL [facility] CREATININE 0.60 0.5 - 1.5 mg/dL [facility] GLUCOSE 128(H) 70 - 99 mg/dL [facility] CALCIUM 10.6(H) 8.4 - 10.3 mg/dL [facility] EGFR 91 >59 mL/min/1.7 3m2 [facility] Comment:Estimated glomerular filtration rate calculated using the CKD-EPI refit equation. ANION GAP 14 10 - 20 mmol/L [facility] Blood 06/06/2024 12:3 1 PM EDT 06/06/2024 12:37 PM EDT Zach Guzmán DO LAB BLOOD ORDERABLES Final Resul t [address] [phone] from Last 3 Months or Most Recently Relevant to Health Maintenance Insurance DUAL MEDICARE REPLACEMENT MEDICARE PART A & B DUAL MEDICARE REPLACEMENT MEDICARE PART A & [place] [address] [place] [address] [address] [place] [place] [address] DUAL MEDICARE REPLACEMENT MEDICARE PART A & B MEDICARE PART A & B Member Subscriber Plan / Payer (Ef fective 2010-Present) Name:Kuldeep Aaliyah Kimberly Member ID:[id number] Relation to Subscriber:Self Name:Aaliyah Light I Subscriber ID:[id number] Payer ID:[id number] Group ID:Not on file Type:Medicare Address: [employer] [address] MEDICARE PART A & B Member Subscriber Plan / Payer (Ef fective 2010-Present) Name:Aaliyah Light I Member ID:[id number] Relation to Subscriber:Self Name:Aaliyah Light I Subscriber ID:[id number] Payer ID:[id number] Group ID:Not on file Type:Medicare Address: [employer] [address] [place] [phone] MEDICARE PART A & B Care Teams Checkman Relationship Specialty Start Date End Date Sarai Trejo MD [address] [place] [phone] PCP - General Family Medicine 06/06/24 Additional Source Comments The information contained in this document represents components of the legal health record. It is not the complete legal health record.[facility]
--- OUTSIDE RECORDS SUMMARY | 2024-12-11 13:03 | XMS_ITS | Encounter Summary ---
Author Organization [employer] Address [address] [facility] 7t [place] [address] Care Team Providers Care Compensation And Benefits Analyst Name Role Phone Sarai Trejo MD Primary Care Provider [phone] Encounter Details Date Type Department Care Team (Late st Contact Info) Description 06/03/2022 Orders Only [facility] CHC MED & PEDS [address] [place], [place] [phone] Sona Manzo LPN Social History Tobacco Use [...] Description 12/21/2024 10:00 AM EDT Office Visit [facility] ADULT DENTAL [address] [place] [address] Lester Terrazas DDS [address] [place] [address] documented as of this encounter Visit Diagnoses Not on filedocumented in this encounter Care Teams Compensation And Benefits Analyst Relationship Specialty Start Date End Date Sarai Trejo MD [address] [place] [address] PCP - General Family Medicine 03/22/18 documented as of this encounter
--- OUTSIDE RECORDS SUMMARY | 2024-12-11 13:03 | XMS_ITS | Patient Health Record ---
Author Organization [facility] Address [address] [place] [address] Care Team Providers Care Auto Service Instructor Name Role Phone Neil DOTY, Sarai Primary Care Provider Sergey Mathews Unavailable [phone] Allergies No Known Allergies Reason For Referral [...] Status Risk Notes Problem Irritable bowel syndrome (77175809) Irritable bowel syndrome (K58.9) Active confirmed Problem Screening for malignant neoplasm of colon (641858874) Encounter for screening for malignant neoplasm of colon (Z12.11) Active confirmed Problem 31149027 Irritable bowel syndrome without diarrhea (K58.9) Active confirmed Problem Family History of Cancer of Colon (Situation) (063930637) Family history of colon cancer (Z80.0) Active confirmed Problem 357490481 Abdominal pain, right upper quadrant (R10.11) Active confirmed Problem 858754466 Abnormal CT of the abdomen (R93.5) Active confirmed Problem 51054197 Irritable bowel syndrome with both constipation and diarrhea (K58.2) Active confirmed Problem 344921435 RUQ pain (R10.11) Active confirmed Problem 506968648 Acute biliary pancreatitis without infection or necrosis (K85.10) Active confirmed Problem 561338273 Abdominal wall pain in right upper quadrant (R10.11) Active confirmed Plan Of Treatment Pending Test Test Name Order Date BUN 03/27/2015 CREATININE 03/27/2015 LIVER PROFILE 03/27/2015 Future Test Test Name Order Date COLONOSCOPY 07/10/2014 COLONOSCOPY 04/17/2020 Insurance Providers Payer Name Payer Address Payer Phone Subscriber Number Group Number Insured Name Patient Relationship to Insured Coverage Start Date Coverage End Date [facility] [address] [address] [place] [phone] [id number] JAYLEN RONDON Self - patient is the insured Medical (General) History Medical History History ICD Code Colonoscopies in 2003 and 03-28-2009--both negative for polyps-did have diverticulosis and hemorrhoids Osteoporosis Back pain Depression Denies ID,CVA,renal disease COPD NIDDM Neuropathy GERD Hypothroidism Negative [...]
--- OUTSIDE RECORDS SUMMARY | 2024-12-11 13:03 | XMS_ITS | Encounter Summary ---
Author Organization [employer] Address [address] [facility] [address] [facility] [address] 7t [place] [address] Care Team Providers Care Primary Care Provider Name Role Phone Sarai Trejo MD Primary Care Provider Reason for Visit * Reason Onset Date Comments Medication 04/16/2023 Encounter Details Date Type Department Care Team ([facility] st Contact Info) Description 04/16/2023 Telephone [facility] MEDICINE [address] [place], [place] [phone] Sarai Trejo MD 230 [place], [place] [phone] Medication Social History Tobacco Use Types Packs/Day [...] Any questions you can contact pt at [phone]. documented in this encounter Plan of Treatment Upcoming Encounters Date Type Department Care Team (Late st Contact Info) Description 12/21/2024 10:00 AM EDT Office Visit [facility] ADULT DENTAL 230 [place] [address] Lester Terrazas DDS 230 [place] [address] documented as of this encounter Goals Goal Patient Goal Type Associated Problems Recent Progress Patient-Stated? Author Blood Pressure < 140/90 Blood Pressure 130/68(2024 10:12 AM EDT) No Yury Bee, PharmD Hemoglobin A1c < 7 Result Component 7.5( 9:56 AM EDT) No Yury Bee PharmD documented as of this encounter Visit Diagnoses Not on filedocumented in this encounter Care Teams Primary Care Provider Relationship Specialty Start Date End Date Sarai Trejo MD [address] [place] [address] PCP - General Family Medicine 03/22/18 documented as of this encounter
--- OUTSIDE RECORDS SUMMARY | 2024-12-11 13:03 | XMS_ITS | Encounter Summary ---
Author Organization [employer] Address [address] [facility] 7t [place] [address] Care Team Providers Care Desk Clerk Name Role Phone Sarai Trejo MD Primary Care Provider [phone] Reason for Visit * Reason Onset Date Comments HDF 07/03/2022 Encounter Details Date Type Department Care Team ([facility] st Contact Info) Description 07/03/2022 Telephone [facility] MEDICINE 230 [place], [place] [phone] Sarai Trejo MD 230 [place], [place] [phone] HDF Social History Tobacco Use Types Packs/Day [...] HDF F/U (no symptoms) Patient hospitalized at [facility]. Patient was admitted on 06/30/2022 and discharged on 07/02/2022 . The patient was diagnosed with Pulmonary. Patient advised will forward to [facility] Clinical Coordinators for follow up and appointment scheduling. Please contact pt at [phone] swedish Speaker documented in this encounter Plan of Treatment Upcoming Encounters Date Type Department Care Team (Late st Contact Info) Description 12/21/2024 10:00 AM EDT Office Visit [facility] ADULT DENTAL [address] [place] [address] Lester Terrazas DDS [address] [place] [address] documented as of this encounter Visit Diagnoses Not on filedocumented in this encounter Care Teams Desk Clerk Relationship Specialty Start Date End Date Sarai Trejo MD 230 [place] [address] PCP - General Family Medicine 03/22/18 documented as of this encounter
--- OUTSIDE RECORDS SUMMARY | 2024-12-11 13:03 | XMS_ITS | Encounter Summary ---
Author Organization [employer] Address [address] [facility] [facility] 7t [place] [address] Care Team Providers Care Medical Assisting Program Director Name Role Phone Sarai Trejo MD Primary Care Provider Encounter Details Date Type Department Care Team ([facility] st Contact Info) Description 09/05/2024 Telephone [facility] MEDICINE 230 [place], [place] [phone] Sarai Trejo MD [address] [place], [place] [phone] Social History Tobacco Use Types Packs/Day Years Used Date Smoking Tobacco: Former Cigarettes Passive Smoke Exposure: Past Smokeless Tobacco: Never Depression Answer Date Recorded Patient Health Questionnaire-9 Score 0 08/12/2023 Patient Health Questionnaire-9 Score 0 08/12/2023 Last PHQ-9: Questionnaire Data Not on file 0 08/12/2023 Housing Stability Answer Date Recorded What is your housing situation today? I have santanaomi calvert 06/05/[address] you [...] Description 12/21/2024 10:00 AM EDT Office Visit [facility] ADULT DENTAL 230 [place], [place] [phone] Lester Terrazas DDS 230 [place], [place] [phone] documented as of this encounter Goals Goal [...] as of this encounter Care Teams Medical Assisting Program Director Relationship Specialty Start Date End Date Sarai Trejo MD 230 [place], [place] [phone] PCP - General Family Medicine 03/22/18 documented as of this encounter
--- OUTSIDE RECORDS SUMMARY | 2024-12-11 13:03 | XMS_ITS | Encounter Summary ---
Author Organization [employer] Address [address] [address] [facility] [address] 7t [place] [address] Care Team Providers Care Optic Fibre Drawer Name Role Phone Sarai Trejo MD Primary Care Provider [phone] Reason for Visit * Reason Onset Date Comments Reschedule 07/16/2023 Encounter Details Date Type Department Care Team ([facility] st Contact Info) Description 07/16/2023 Telephone [facility] MEDICINE 230 [place], [place] [phone] Sarai Trejo MD [address] [place], [place] [phone] Reschedule Social History Tobacco Use Types Packs/Day [...] the past 12 months, has t he [employer], gas, oil or water company threatened to [...] appt but not to early in the morning,proposal writer offer 2 different appts to pt on August but pt doesn't accept them. documented in this encounter Plan of Treatment Upcoming Encounters Date Type Department Care Team (Late st Contact Info) Description 12/21/2024 10:00 AM EDT Office Visit [facility] ADULT DENTAL 230 [place] [address] Lester Terrazas DDS [address] [place] [address] documented as of this encounter Goals Goal Patient Goal Type Associated Problems Recent Progress Patient-Stated? Author Blood Pressure < 140/90 Blood Pressure 130/68(2024 10:12 AM EDT) No Yury Bee, PharmD Hemoglobin A1c < 7 Result Component 7.5( 9:56 AM EDT) No Yury Bee, BretD documented as of this encounter Visit Diagnoses Not on filedocumented in this encounter Care Teams Optic Fibre Drawer Relationship Specialty Start Date End Date Sarai Trejo MD [address] [place] [address] PCP - General Family Medicine 03/22/18 documented as of this encounter
--- OUTSIDE RECORDS SUMMARY | 2024-12-11 13:03 | XMS_ITS | Clinical Summary ---
Author Organization [facility] Address [address] [phone] Care Team Providers Care Pick Remover Name Role Phone Unavailable Primary Care Provider [...]
--- OUTSIDE RECORDS SUMMARY | 2024-12-11 13:03 | XMS_ITS | Encounter Summary ---
Author Organization [employer] Address [address] [facility] [facility] [address] 7[address] [place] [address] Care Team Providers Care Inspector And Tester Name Role Phone Sarai Trejo MD Primary Care Provider [phone] Encounter Details Date Type Department Care Team (Latest Contact Info) Description 12/11/2024 Travel Social History Tobacco Use Types Packs/Day Years [...] Description 12/21/2024 10:00 AM EDT Office Visit [facility] ADULT DENTAL 230 [place] [address] Lester Terrazas DDS 230 [place] [address] documented as of this encounter Goals Goal [...] documented as of this encounter Care Teams Inspector And Tester Relationship Specialty Start Date End Date Sarai Trejo MD 230 [place] [address] PCP - General Family Medicine 03/22/18 documented as of this encounter
--- OUTSIDE RECORDS SUMMARY | 2024-12-11 13:03 | XMS_ITS | Encounter Summary ---
Author Organization [employer] Address [address] [facility] [address] 7t [place] [address] Care Team Providers Care Phlebotomist Medical Lab Assistant Name Role Phone Sarai Trejo MD Primary Care Provider [phone] Reason for Visit * Reason Onset Date Comments Med Refill 05/17/2023 Encounter Details Date Type Department Care Team ([facility] st Contact Info) Description 05/17/2023 Telephone [facility] MEDICINE 230 [place], [place] [phone] Sarai Trejo MD 230 [place], [place] [phone] Med Refill Social History Tobacco Use Types [...] the past 12 months, has t he [employer], gas, oil or water company threatened to [...] 11:33 AM EST Magnesium was sent to [facility] on 04/20/23 #45 with 1 refill other meds pended to PCP. * Telephone Encounter - Shawna Walls - 05/17/2023 11:27 AM EST TC from pt requesting medication refill. Medications needing refill : magnesium oxide (Mag-Ox) 400 MG tablet Alcohol pads albuterol (2.5 MG/3ML) 0.083% nebulizer solution albuterol 108 (90 Base) MCG/ACT inhaler Acetaminophen Extra Strength 500 MG tablet To be sent to: [facility] - [place], [place] - [address] [facility] documented in this encounter Plan of Treatment Upcoming Encounters Date Type Department Care Team (Late st Contact Info) Description 12/21/2024 10:00 AM EDT Office Visit [facility] ADULT DENTAL [address] [place] [address] Lester Terrazas DDS [address] [place] [address] documented as of this encounter Goals Goal Patient Goal Type Associated Problems Recent Progress Patient-Stated? Author Blood Pressure < 140/90 Blood Pressure 130/68(2024 10:12 AM EDT) No Yury Bee, PharmD Hemoglobin A1c < 7 Result Component 7.5( 5 9:56 AM EDT) No Yury Bee, PharmD documented as of this encounter Visit Diagnoses Not on filedocumented in this encounter Care Teams Phlebotomist Medical Lab Assistant Relationship Specialty Start Date End Date Sarai Trejo MD 230 [place] [address] PCP - General Family Medicine 03/22/18 documented as of this encounter
--- OUTSIDE RECORDS SUMMARY | 2024-12-11 13:03 | XMS_ITS | Encounter Summary ---
Author Organization [employer] Address [address] [facility] 7t [place] [address] Care Team Providers Care Upper Tier Name Role Phone Sarai Trejo MD Primary Care Provider [phone] Encounter Details Date Type Department Care Team (Late st Contact Info) Description 11/06/2022 Orders Only [facility] MEDICINE 230 [place], [place] [phone] Sarai Trejo MD 230 [place], [place] [phone] Right arm pain (Primary Dx); Right elbow [...] 10:00 AM EDT Office Visit [facility] ADULT DENTAL 230 [place], [place] [phone] Lester Terrazas DDS [address] [place], [place] [phone] documented as of this encounter Visit Diagnoses Diagnosis Right arm pain- Primary Pain in soft tissues of limb Right elbow pain Pain in joint, upper arm Acute pain of right shoulder documented in this encounter Care Teams Upper Tier Relationship Specialty Start Date End Date Sarai Trejo MD [address] [place] [address] PCP - General Family Medicine 03/22/18 documented as of this encounter
--- OUTSIDE RECORDS SUMMARY | 2024-12-11 13:03 | XMS_ITS | Encounter Summary ---
Author Organization [employer] Address [address] [facility] [address] 7t [place] [address] Care Team Providers Care Brick And Block Mason Name Role Phone Sarai Trejo MD Primary Care Provider [phone] Encounter Details Date Type Department Care Team ([facility] st Contact Info) Description 01/29/2023 Orders Only [facility] MEDICINE 230 [place], [place] [phone] Yoli Pardo MD 230 [place], [place] [phone] Social History Tobacco Use Types Packs/Day Years Used Date Smoking Tobacco: Former Cigarettes Passive Smoke Exposure: Past Smokeless Tobacco: Never PHQ-2 Answer Date Recorded Patient Health Questionnaire-2 Score 2 06/30/2022 Housing Stability Answer Date Recorded What is your housing situation today? I have santanaomi calvert 01/04/[address] you [...] Description 12/21/2024 10:00 AM EDT Office Visit [facility] ADULT DENTAL 230 [place], [place] [phone] Lester Terrazas DDS 230 [place], [place] [phone] documented as of this encounter Goals Goal Patient Goal Type Associated Problems Recent Progress Patient-Stated? Author Blood Pressure < 140/90 Blood Pressure 130/68(2024 10:12 AM EDT) No Yury Bee, PharmD Hemoglobin A1c < 7 Result Component 7.5( 9:56 AM EDT) No Yury Bee, BretD documented as of this encounter Visit Diagnoses Not on filedocumented in this encounter Care Teams Brick And Block Mason Relationship Specialty Start Date End Date Sarai Trejo MD 230 [place] [address] PCP - General Family Medicine 03/22/18 documented as of this encounter
--- OUTSIDE RECORDS SUMMARY | 2024-12-11 13:03 | XMS_ITS | Encounter Summary ---
Author Organization [employer] Address [address] [facility] 7t [place] [address] Care Team Providers Care Morphology Teacher Name Role Phone Sarai Trejo MD Primary Care Provider Encounter Details Date Type Department Care Team (Late st Contact Info) Description 12/11/2022 Orders Only [facility] 230 [place] [address] Sarai Trejo MD 230 [place] [address] Chronic intractable headache, unspecified headache type (Primary Dx); Female stress incontinence; Primary hypertension; Type 2 diabetes mellitus without complication, without long-term current use of insulin ([facility]); Weight loss; Postoperative hypothyroidism Social History Tobacco [...] Description 12/21/2024 10:00 AM EDT Office Visit [facility] ADULT DENTAL 230 [place], [place] [phone] Lester Terrazas DDS 230 [place] [address] Scheduled Orders Name Type Priority Associated Diagnoses Orde r Schedule Vitamin B12/Folate, Serum Panel Lab Routine Type 2 diabetes mellitus without complication, without long-term current use of insulin ([facility]) Expected: 12/11/2022 (Approximate), Expires: 12/12/2023 Albumin, Random Urine W/Creatinine Lab Routine Type 2 diabetes mellitus without complication, without long-term current use of insulin (CMS/HCC) Expected: 12/11/2022 (Approximate), Expires: 12/12/2023 Hemoglobin A1c Lab Routine Type 2 diabetes mellitus without complication, without long-term current use of insulin (CMS/[facility]) Expected: 12/11/2022 (Approximate), Expires: 12/12/2023 Comprehensive Metabolic Panel Lab Routine Type 2 diabetes mellitus without complication, without long-term current use of insulin ([facility]) Expected: 12/11/2022 (Approximate), Expires: 12/12/2023 Lipid Panel with Reflex to Direct LDL Lab Routine Type 2 diabetes mellitus without complication, without long-term current use of insulin ([facility]/HCC) Expected: 12/11/2022 (Approximate), Expires: 12/12/2023 TSH W/Reflex [...] AM EDT Narrative 12/24/2022 11:33 AM EDT [facility] [address] [place] [address] Mammography Report Signed Patient: Aaliyah Brennan I MR#: [id number] : 1945 Acct:[id number] Age/Sex: 77 / F ADM Date: 12/23/22 Loc: HO.MAMMO Attending Dr: Sarai Trejo MD Ordering Physician: Sarai Trejo MD Results: Date of Service: 12/23/22 Follow Up: Procedure(s): XR DEXA axial skeleton Accession Number(s): [id number] cc: Sarai Trejo MD EXAMINATION: BONE DENSITOMETRY CLINICAL INDICATION: Osteopenia. Bisphosphonate treatment. COMPARISON: Previous BD dated 09/05/2020 and baseline BD dated 01/28/2007. TECHNIQUE: Using a [employer] DXA System (software version: 13.1) manufactured by [employer], dual-energy x-ray absorptiometry was performed of the [...] in OV> 12/24/22 1129 DD/ 1055 TD/TT: Eligibility Worker: TONI Procedure Note Donotuseinterpreter, Image - 12/24/[address] [place], [place] [address] Mammography Report Signed Patient: Aaliyah Brennan [facility]#: [id number] : 5Acct:[id number] Age/Sex: 77 / FADM Date: 12/23/22 Loc: JALIL Attending Dr: Sarai Trejo MD Ordering Physician: Sarai Trejo MDResults: Date of Service: 12/23/22Follow Up: Procedure(s): XR DEXA axial skeleton Accession Number(s): [id number] cc: Sarai Trejo MD EXAMINATION: BONE DENSITOMETRY CLINICAL INDICATION: Osteopenia. Bisphosphonate treatment. COMPARISON: Previous BD dated 09/05/2020 and baseline BD dated 01/28/2007. TECHNIQUE: Using a [employer] DXA System (software version: 13.1) manufactured by [employer], dual-energy x-ray absorptiometry was performed of the [...] in OV> 12/24/22 1129 DD/ 1055 TD/TT: Eligibility Worker: DB Sarai Trejo MD IMG XR PROCEDURES Edited Result - Final documented in this encounter Visit Diagnoses Diagnosis Chronic intractable headache, unspecified headache type- Primary Female stress incontinence Primary hypertension Unspecified essential hypertension Type 2 diabetes mellitus without complication, without long-term current use of insulin ([facility]) Weight loss Loss of weight Postoperative hypothyroidism Postsurgical hypothyroidism documented in this encounter Care Teams Morphology Teacher Relationship Specialty Start Date End Date Sarai Trejo MD [address] [place] [address], [place] [address] PCP - General Family Medicine 03/22/18 documented as of this encounter
--- OUTSIDE RECORDS SUMMARY | 2024-12-11 13:03 | XMS_ITS | Encounter Summary ---
Author Organization [facility] Address [address] [facility] [address] [place] [address] Phone Care Team Providers Care Demolition Crane Operator Name Role Phone Huey Herrera DO Primary Care Provider [phone] Sarai Trejo MD Primary Care Provider [phone] Reason for Referral * Consultation (Within 1 month) - Closed Specialty Diagnoses / Procedures Referred By Contac t Referred To Contact Endocrinology Diagnoses Osteoporosis, unspecified osteoporosis type, unspecified pathological fracture presence Sarai Trejo MD Phone: tel: fax: Zach Guzmán DO Phone: tel: fax: mailto:[email or web address] Referral ID Status Reason Start Date Expiration Date Visits Re quested Visits Authorized [id number] Closed 02/26/2023 02/27/2024 1 1 Encounter Details Date Type Department Care Team (Latest Contact Info) Description 02/26/2023 Transcribe Orders [facility] [address] [place] [address] Zach Guzmán DO [address] [place] [address] Osteoporosis, unspecified osteoporosis type, unspecified pathological fracture presence (Primary Dx) Social History Tobacco Use Types Packs/Day Years Used Date Smoking Tobacco: Never Assessed Education Answer Date Recorded Are you interested [...] 11:30 AM EDT Office Visit [facility] [address] [place] [address] Zach Guzmán DO [address] [place] [address] [email or web address] Scheduled Referrals Name Type Priority Associated Diagnoses Orde r Schedule Ambulatory referral to [facility] Endocrinology Outpatient Referral Routine Osteoporosis, unspecified osteoporosis type, unspecified pathological fracture presence Ordered: 02/26/2023 documented as of this encounter Visit Diagnoses Diagnosis Osteoporosis, unspecified osteoporosis type, unspecified pathological fracture presence- Primary documented in this encounter Care Teams Demolition Crane Operator Relationship Specialty Start Date End Date Huey Herrera DO [address] [place] [address] PCP - General Cardiology 07/25/20 06/05/24 Sarai Trejo MD [address] [place] [address] PCP - General Family Medicine 06/06/24 documented as of this encounter Additional Source Comments The information contained in this document represents components of the legal health record. It is not the complete legal health record.[facility]
--- OUTSIDE RECORDS SUMMARY | 2024-12-11 13:03 | XMS_ITS | Encounter Summary ---
Author Organization [employer] Address [address] [facility] 7t [place] [address] Care Team Providers Care Acid Strength Inspector Name Role Phone Sarai Trejo MD Primary Care Provider [phone] Encounter Details Date Type Department Care Team (Late st Contact Info) Description 07/03/2022 Orders Only [facility] MEDICINE 230 [place], [place] [phone] Sarai Trejo MD 230 [place], [place] [phone] Social History Tobacco Use Types Packs/Day Years [...] 10:00 AM EDT Office Visit [facility] ADULT DENTAL 230 [place], [place] [phone] Lester Terrazas DDS 230 [place] [address] documented as of this encounter Visit Diagnoses Not on filedocumented in this encounter Care Teams Acid Strength Inspector Relationship Specialty Start Date End Date Sarai Trejo MD 230 [place] [address] PCP - General Family Medicine 03/22/18 documented as of this encounter
--- OUTSIDE RECORDS SUMMARY | 2024-12-11 13:03 | XMS_ITS | Encounter Summary ---
Author Organization [facility] Address [address] [facility] [address] [place] [address] Phone Care Team Providers Care Agronomy Teacher Name Role Phone Huey Herrera DO Primary Care Provider [phone] Sarai Trejo MD Primary Care Provider Sarai Trejo MD Primary Care Provider [phone] Encounter Details Date Type Department Care Team (Late st Contact Info) Description 07/24/2020 Procedure [facility] [address] [place] [address] Social History Tobacco Use Types Packs/Day Years [...] 11:30 AM EDT Office Visit [facility] [address] [place] [address] Zach Guzmán DO 22 [place] [address] documented as of this encounter Visit Diagnoses Not on filedocumented in this encounter Care Teams Agronomy Teacher Relationship Specialty Start Date End Date Huey Herrera DO [address] [place] [address] PCP - General Cardiology 07/25/20 06/05/24 Sarai Trejo MD 230 [place] [address] PCP - General 07/24/20 07/24/20 Sarai Trejo MD 230 [place] [address] PCP - General Family Medicine 06/06/24 documented as of this encounter Additional Source Comments The information contained in this document represents components of the legal health record. It is not the complete legal health record.[facility]
--- OUTSIDE RECORDS SUMMARY | 2024-12-11 13:03 | XMS_ITS | Encounter Summary ---
Author Organization [employer] Address [address] [facility] 7t [place] [address] Care Team Providers Care Pool Attendant Name Role Phone Sarai Trejo MD Primary Care Provider [phone] Reason for Visit * Reason Comments Med Refill Encounter Details Date Type Department Care Team (Late st Contact Info) Description 12/03/2022 Refill [facility] MEDICINE 230 [place], [place] [phone] Sarai Trejo MD 230 [place], [place] [phone] Coronary artery disease involving [place] coronary artery of [place] heart without angina pectoris Social History Tobacco [...] Description 12/21/2024 10:00 AM EDT Office Visit [facility] ADULT DENTAL 230 [place], [place] [phone] Lester Terrazas DDS 230 [place], [place] [phone] documented as of this encounter Visit Diagnoses Diagnosis Coronary artery disease involving [place] coronary artery of [place] heart without angina pectoris documented in this encounter Care Teams Pool Attendant Relationship Specialty Start Date End Date Sarai Trejo MD [address] [place] [address] PCP - General Family Medicine 03/22/18 documented as of this encounter
--- OUTSIDE RECORDS SUMMARY | 2024-12-11 13:04 | XMS_ITS | Encounter Summary ---
Author Organization [employer] Address [facility] [address] [place] [address] Care Team Providers Care Plant Inspector Name Role Phone Sarai Trejo MD Primary Care Provider [phone] Reason for Visit * Reason Comments Med Refill Encounter Details Date Type Department Care Team (Late st Contact Info) Description 03/28/2023 Refill [facility] [address] [place], [place] [phone] Sarai Trejo MD [address] [place], [place] [phone] Pain Social History Tobacco Use Types Packs/Day [...] Description 12/21/2024 10:00 AM EDT Office Visit [facility] [address] [place] [address] Lester Terrazas DDS [address] [place] [address] documented as of this encounter Goals Goal Patient Goal Type Associated Problems Recent Progress Patient-Stated? Author Blood Pressure < 140/90 Blood Pressure 130/68(2024 10:12 AM EDT) No Yury Bee, PharmD Hemoglobin A1c < 7 Result Component 7.5( 9:56 AM EDT) No Yury Bee PharmD documented as of this encounter Visit Diagnoses Diagnosis Pain Generalized pain documented in this encounter Care Teams Plant Inspector Relationship Specialty Start Date End Date Sarai Trejo MD [address] [place] [address] PCP - General Family Medicine 03/22/18 documented as of this encounter
--- OUTSIDE RECORDS SUMMARY | 2024-12-11 13:04 | XMS_ITS | Encounter Summary ---
Author Organization [facility] Address [address] [facility] [address] [place] [address] Phone Care Team Providers Care Tar Chaser Name Role Phone Huey Herrera DO Primary Care Provider [phone] Sarai Trejo MD Primary Care Provider [phone] Sarai Trejo MD Primary Care Provider [phone] Encounter Details Date Type Department Care Team (Late st Contact Info) Description 07/24/2020 Ancillary Orders [facility] [address] [place] [address] Huey Herrera DO [address] [place] [phone] Palpitations Social History Tobacco Use Types Packs/Day Years [...] AM EDT Office Visit [facility] [address] [place] [address] Zach Guzmán DO [address] [place] [address] documented as of this encounter Results * Holter Monitor 24 Hours (07/24/2020 9:23 AM EDT) Anatomical Region Laterality Modality Heart Other Narrative 07/24/2020 9:52 AM EDT Holter monitor report Indication palpitations Findings: The underlying rhythm is a sinus rhythm average heart rate 79, minimum heart rate 55, maximal heart rate is a 33. There are very rare isolated PVCs. There are very rare isolated premature atrial contractions. No tachyarrhythmias are seen. Conclusion: Normal Holter monitor. Procedure Note Jamie Paniagua MD - 07/24/2020 Holter monitor report Indication palpitations Findings: The underlying rhythm is a sinus rhythm average heart rate 79, minimumheart rate 55, maximal heart rate is a 33. There are very rare isolated PVCs. There are very rare isolated premature atrial contractions. No tachyarrhythmias are seen. Conclusion: Normal Holter monitor. Huey Herrera DO [facility] ORDERABLE S Final Result documented in this encounter Visit Diagnoses Diagnosis Palpitations Palpitations documented in this encounter Care Teams Tar Chaser Relationship Specialty Start Date End Date Huey Herrera DO [address] [place] [address] PCP - General Cardiology 07/25/20 06/05/24 Sarai Trejo MD [address] [place] [address] PCP - General 07/24/20 07/24/20 Sarai Trejo MD [address] [place] [address] PCP - General Family Medicine 06/06/24 documented as of this encounter Additional Source Comments The information contained in this document represents components of the legal health record. It is not the complete legal health record.[facility]
--- OUTSIDE RECORDS SUMMARY | 2024-12-11 13:04 | XMS_ITS | Encounter Summary ---
Author Organization [employer] Address [address] [facility] [address] [place] [address] Care Team Providers Care Transit Coach Operator Name Role Phone Sarai Trejo MD Primary Care Provider [phone] Encounter Details Date Type Department Care Team ([facility] st Contact Info) Description 02/26/2023 Orders Only [facility] [address] [place], [place] [phone] Sarai Trejo MD [address] [place], [place] [phone] Social History Tobacco Use Types Packs/Day Years [...] Description 12/21/2024 10:00 AM EDT Office Visit [facility] [address] [place] [address] Lester Terrazas DDS [address] [place], [place] [phone] documented as of this encounter Goals Goal Patient Goal Type Associated Problems Recent Progress Patient-Stated? Author Blood Pressure < 140/90 Blood Pressure 130/68(2024 10:12 AM EDT) No Yury Bee, PharmD Hemoglobin A1c < 7 Result Component 7.5( 9:56 AM EDT) No Yury Bee PharmD documented as of this encounter Visit Diagnoses Not on filedocumented in this encounter Care Teams Transit Coach Operator Relationship Specialty Start Date End Date Sarai Trejo MD [address] [place] [address] PCP - General Family Medicine 03/22/18 documented as of this encounter
--- OUTSIDE RECORDS SUMMARY | 2024-12-11 13:04 | XMS_ITS | Encounter Summary ---
Author Organization [facility] Address [address] [facility] [address] [place] [address] Phone Care Team Providers Care Documentation Specialist Name Role Phone Huey Herrera DO Primary Care Provider [phone] Sarai Trejo MD Primary Care Provider [phone] Sarai Trejo MD Primary Care Provider [phone] Encounter Details Date Type Department Care Team (Late st Contact Info) Description 07/24/2020 Ancillary Orders [facility] [address] [facility] 3[address] Floor, [address] [place] [address] Mary Davis MD [address] [place] [phone] [email or web address] Social History Tobacco Use Types Packs/Day Years [...] AM EDT Office Visit [facility] [address] [place] [address] Zach Guzmán DO 22 [place] [address] [email or web address] documented as of this encounter Visit Diagnoses Not on filedocumented in this encounter Care Teams Documentation Specialist Relationship Specialty Start Date End Date Huey Herrera DO [address] [place] [address] PCP - General Cardiology 07/25/20 06/05/24 Sarai Trejo MD [address] [place] [address] PCP - General 07/24/20 07/24/20 Sarai Trejo MD [address] [place] [address] PCP - General Family Medicine 06/06/24 documented as of this encounter Additional Source Comments The information contained in this document represents components of the legal health record. It is not the complete legal health record.[facility]
--- OUTSIDE RECORDS SUMMARY | 2024-12-11 13:04 | XMS_ITS | Encounter Summary ---
Author Organization [employer] Address [address] [facility] [address] [facility] [address] [place] [address] Care Team Providers Care Auto Job Estimator Name Role Phone Sarai Trejo MD Primary Care Provider Encounter Details Date Type Department Care Team ([facility] st Contact Info) Description 12/31/2022 Orders Only [facility] [address] [place], [place] [phone] Sarai Trejo MD [address] [place], [place] [phone] Osteoporosis without current pathological fracture, unspecified osteoporosis [...] 12/21/2024 10:00 AM EDT Office Visit [facility] [address] [place], [place] [phone] Lester Terrazas DDS [address] [place] [address] documented as of this encounter Visit Diagnoses Diagnosis Osteoporosis without current pathological fracture, unspecified osteoporosis type- Primary documented in this encounter Care Teams Auto Job Estimator Relationship Specialty Start Date End Date Sarai Trejo MD [address] [place] [address] PCP - General Family Medicine 03/22/18 documented as of this encounter
--- OUTSIDE RECORDS SUMMARY | 2024-12-11 13:04 | XMS_ITS | Encounter Summary ---
Author Organization [facility] Address [address] [facility] [address] [place] [address] Phone Care Team Providers Care Repair Clerk Name Role Phone Huey Herrera DO Primary Care Provider [phone] Sarai Trejo MD Primary Care Provider [phone] Sarai Trejo MD Primary Care Provider Encounter Details Date Type Department Care Team (Late st Contact Info) Description 08/12/2017 Ancillary [facility] [address] [place] [address] Anjana Maya MD 230 [facility] [address] [place] [address] Social History Tobacco Use Types Packs/Day Years [...] 11:30 AM EDT Office Visit [facility] [address] Zach Guzmán [place] [address] documented as of this encounter Visit Diagnoses Not on filedocumented in this encounter Care Teams Repair Clerk Relationship Specialty Start Date End Date Huey Herrera DO [address] [place] [address] PCP - General Cardiology 07/25/20 06/05/24 Sarai Trejo MD 230 [place] [address] PCP - General 07/24/20 07/24/20 Sarai Trejo MD [address] [place] [address] PCP - General Family Medicine 06/06/24 documented as of this encounter Additional Source Comments The information contained in this document represents components of the legal health record. It is not the complete legal health record.[facility]
--- OUTSIDE RECORDS SUMMARY | 2024-12-11 13:04 | XMS_ITS | Encounter Summary ---
Author Organization [employer] Address [address] [facility] [address] [place] [address] Care Team Providers Care Shutdown Coordinator Name Role Phone Sarai Trejo MD Primary Care Provider Encounter Details Date Type Department Care Team (Late st Contact Info) Description 03/02/2023 Orders Only [facility] [address] [place], [place] [phone] Sarai Trejo MD 230 [place], [place] [phone] Abdominal pain, unspecified abdominal location (Primary Dx); [...] the past 12 months, has t he [employer], oil or water [employer] threatened to shut off services in your [...] 10:00 AM EDT Office Visit [facility] [address] [place], [place] [phone] Lester Terrazas DDS [address] [place] [address] documented as of this encounter Goals Goal [...] type documented in this encounter Care Teams Shutdown Coordinator Relationship Specialty Start Date End Date Sarai Trejo MD [address] [place] [address] PCP - General Family Medicine 03/22/18 documented as of this encounter
--- OUTSIDE RECORDS SUMMARY | 2024-12-11 13:04 | XMS_ITS | Clinical Summary ---
Author Organization [address] [facility] Address [address] [place] [address] Phone Care Team Providers Care Porcelain Waxer Name Role Phone Sarai Trejo MD Primary Care Provider [phone] Allergies Active Allergy Reactions Criticality Noted Date Comments Fish Containing Products 04/11/2024 Medications acetaminophen (TYLENOL) 500 mg tablet Take 2 tablets (1,000 mg total) by mouth every 8 (eight) hours if needed. 5 Active Ventolin HFA 90 mcg/actuation inhaler INHALE 2 PUFFS BY MOUTH EVERY 4 TO 6 HOURS NEEDED SHORTNESS OF BREATH DO NOT EXCEED 4 PUFFS DAILY 5 Active Alcohol Prep Pads pads, medicated 2 (two) times a day. as directed 5 Active amLODIPine (NORVASC) 5 mg tablet Take 1 tablet (5 mg total) by mouth 1 (one) time each day in the morning. 5 Active aspirin 81 mg EC tablet Take 1 tablet (81 mg total) by mouth. at bedtime. 5 Active atorvastatin (LIPITOR) 40 mg tablet Take 1 tablet (40 mg total) by mouth. at bedtime. 5 Active OneTouch Ultra Test test strip USE DIRECTED TO TEST BLOOD SUGAR EVERY DAY 5 Active cetirizine (ZyrTEC) 5 mg tablet Take 1 tablet (5 mg total) by mouth 1 (one) time each day in the morning. 5 Active cholecalciferol (VITAMIN D-3) 25 mcg (1,000 unit) tablet Take 1 tablet (1,000 Units total) by mouth 1 (one) time each day in the morning. 5 Active DULoxetine (CYMBALTA) [address] capsule TAKE 1 CAPSULE BY MOUTH EVERY MORNING INCREASE TO TAKE 2 CAPSULES BY MOUTH EVERY MORNING si no se mejora 5 Active Wixela Inhub 250-50 mcg/dose diskus inhaler INHALE 1 PUFF BY MOUTH TWICE DAILY (for COPD) 5 Active furosemide (LASIX) 20 mg tablet Take 1 tablet (20 mg total) by mouth 1 (one) time each day in the morning. 5 Active lancets (Sush.iouch Delica Plus Lancet) 33 gauge USE DIRECTED TO TEST BLOOD SUGAR EVERY DAY 5 Active levothyroxine (SYNTHROID, LEVOTHROID) 88 mcg tablet Take 1 tablet (88 mcg total) by mouth 1 (one) time each day in the morning. 5 Active magnesium oxide (MAG-OX) 400 mg (241.3 elemental magnesium) tablet TAKE 1 TABLET BY MOUTH EVERY OTHER DAY IN THE EVENING 5 Active melatonin 3 mg tablet Take 1 tablet (3 mg total) by mouth. at bedtime. 5 Active metFORMIN XR (GLUCOPHAGE-XR) 500 mg 24 hr tablet TAKE 2 TABLETS BY MOUTH TWICE DAILY IN THE MORNING AND EVENING 5 Active metoprolol tartrate (LOPRESSOR) 25 mg tablet TAKE 1 TABLET BY MOUTH TWICE DAILY IN THE MORNING AND IN THE EVENING 5 Active montelukast (SINGULAIR) 10 mg tablet Take 1 tablet (10 mg total) by mouth. 5 Active pantoprazole (PROTONIX) 40 mg EC tablet Take 1 tablet (40 mg total) by mouth 1 (one) time each day. 5 Active repaglinide (PRANDIN) 2 mg tablet TAKE 1 AND 1/2 TABLETS BY MOUTH THREE TIMES DAILY BEFORE MEALS Active senna 8.6 mg tablet TAKE 1 TABLET BY MOUTH TWICE DAILY IN THE MORNING AND AT BEDTIME NEEDED FOR CONSTIPATION 5 Active Encounters Date Type Department Care Team Description 12/05/2024 11:30 AM EDT Consult Neurosurgery [address] [address] Nelson Johnson MD Cerebral arterial aneurysm (Primary Dx) 10/25/2024 10:32 AM EDT - 10/25/2024 11:59 PM EDT Hospital Encounter [facility] CT Scan [address] [place] [address] Headache disorder Discharge Disposition: Home or Self Care from Last 3 Months Surgical History Surgery Date Site/Laterality Comments HAND SURGERY KNEE SURGERY SHOULDER SURGERY GALLBLADDER SURGERY Medical History Medical History Date Comments Aneurysm (arteriovenous) of coronary vessels Aneurysm ([facility] V24) Diabetes mellitus ([facility] V24, [facility] V28) Hypertension Social History Tobacco Use Types Packs/Day Years Used Date Smoking Tobacco: Never Assessed Comments Unknown Sex and Gender Information Value Date Recorded Sex Assigned at Female 10/23/2024 8:34 PM EDT Legal Sex Female 4:50 AM EST Gender Identity Not on file Sexual Orientation Not on file Obstetrics History Last Filed Vital Signs Vital Sign Reading Time Taken Comments Blood Pressure 125/71 08/23/2024 4:04 PM EDT Pulse 83 08/23/2024 4:04 PM EDT Temperature 36.1 C (96.9 F) 08/23/2024 4:04 PM EDT Respiratory Rate - - Oxygen Saturation 88% 08/23/2024 4:04 PM EDT Inhaled Oxygen Concentration - - Weight 73.9 kg (163 lb) 12/05/2024 11:34 AM EDT Height 152.4 cm (5') 12/05/2024 11:34 AM EDT Body Mass Index 31.83 12/05/2024 11:34 AM EDT Plan of Treatment Health Maintenance Due Date Last Done Comments Diabetes: Annual Foot Exam 1955 Diabetes: Annual Retina Eye Exam 1955 RSV Immunization Adult Patients (1 - 1-dose 75+ series) 12/14/2019 Cholesterol Screening (Lipid Panel) 12/28/2023 Falls Risk Assessment 12/28/2023 Hepatitis C Screening 12/28/2023 Medicare Annual Wellness Visit 12/28/2023 Osteoporosis Screening (Bone Density Screening) 12/28/2023 Social Influencers of Health Screening 12/28/2023 Diabetes: Annual Urine Albumin-Creatinine Ratio (uACR) 02/09/2024 Depression Screening 03/22/2024 Influenza Vaccine (#1) 2024 , 02/08/2023, 02/01/2020, Additional history exists COVID-19 Vaccine ( season) 2024 06/05/2024, 04/13/2023, 10/06/2021, Additional history exists Diabetes: Blood Sugar Control Test (HGBA1C) 03/24/2025 09/21/2024, 06/05/2024, 11/18/2023 Diabetes: Annual GFR (Glomerular Filtration Rate) 09/21/2025 09/21/2024, 03/07/2024, 05/12/2023 Hypertension/CHF/CAD Annual BMP Blood Test 09/21/2025 09/21/2024, 03/07/2024, 05/12/2023 DTaP,Tdap,and Td Vaccines (4 - Td or Tdap) 07/13/2026 07/13/2016, 05/04/2011, [...] Procedure Name Priority Date/Time Associated Diagnosis Comments CT ANGIO HEAD/NECK WO AND/OR W CONTRAST Routine 10/25/2024 11:27 AM EDT Headache disorder from Last 3 Months Results * CT Angio Head/Neck wo and/or w Contrast (10/25/2024 11:27 AM EDT) Anatomical Region Laterality Modality Head and Neck Computed Tomogra phy 10/30/2024 9:56 AM EDT Impressions 10/30/2024 10:15 AM EDT Aneurysm clip in the left supraclinoid region. No visible residual aneurysm lumen. No new aneurysm. No acute intracranial findings. Multifocal atherosclerotic calcifications, but no hemodynamically significant stenosis or occlusion. -------- FINAL REPORT -------- Dictated By: Baljit Romo Dictated Date: 10/30/2024 09:56 ET Assigned Physician: Baljit Romo Reviewed and Electronically Signed By: Baljit Romo Signed Date: 10/30/2024 10:15 ET Workstation ID: [id number] Transcribed By: Self Edit Transcribed Date: 10/30/2024 09:56 ET Narrative 10/30/2024 10:15 AM EDT PROCEDURE: CT angiogram of the neck and burns paiute of Amaral and delayed postcontrast CT of the brain. HISTORY: aneurysm. COMPARISON: CT of the neck dated 06/27/2020. TECHNIQUE: CT angiogram of the neck and burns paiute of Amaral with multiplanar reformats. Delayed postcontrast images of the brain were also obtained. IV contrast dose: 90 mL [id number]. Dose length product: 1436 mGy-cm. FINDINGS: BRAIN: Aneurysm clip in the left supraclinoid region. Associated streak artifact partially obscures the brain parenchyma. Small area of encephalomalacia in the left subinsular region adjacent to the clip. Patchy hypoattenuation in the supratentorial white matter suggesting mild chronic microvascular ischemic disease. Generalized age commensurate sulcal and ventricular prominence. The ventricles are slightly dilated relative to the sulci. No CT evidence of an acute infarct. No mass or extra-axial fluid collection. CTA: Moderate atherosclerotic calcifications of the aortic arch. Standard three-vessel arch configuration. Tortuous retropharyngeal course of the common and internal carotid arteries, more prominent on the right than the left. There are multifocal atherosclerotic calcifications of the carotids without an associated hemodynamically significant stenosis. The subclavian arteries are widely patent. The vertebral arteries are codominant. No vertebral stenosis. Mildly tortuous but widely patent basilar artery. The public welfare worker are widely patent. Small caliber P1 segments, with right larger than left posterior communicating arteries. Streak artifact from the aneurysm clip partially obscures the right internal carotid artery. There is no visible residual aneurysm lumen. No new aneurysm. No findings to suggest a vascular malformation. The dural venous sinuses appear patent. ORBITS: Lens implants. SINUSES/MASTOIDS: The frontal sinuses are not pneumatized. Leftward bowing of the inferior nasal septum with an apical septal spur. Moderate degenerative changes of the right temporomandibular joint. CALVARIUM: Hyperostosis frontalis interna. Postcraniotomy changes in the left frontal region. OTHER: The skull base soft tissues are normal. Small amount of debris in the external auditory canals. Prominent degenerative changes of the cervical spine with a reversal of the normal cervical lordosis. Procedure Note Baljit Romo MD - 10/30/2024 PROCEDURE: CT angiogram of the neck and burns paiute of Amaral and delayedpostcontrast CT of the brain. HISTORY: aneurysm. COMPARISON: CT of the neck dated 06/27/2020. TECHNIQUE: CT angiogram of the neck and burns paiute of Amaral with multiplanarreformats. Delayed postcontrast images of the brain were also obtained. IV contrast dose: 90 mL ISOVUE-370. Dose length product: 1436 mGy-cm. FINDINGS: BRAIN: Aneurysm clip in the left supraclinoid region. Associated streakartifact partially obscures the brain parenchyma. Small area ofencephalomalacia in the left subinsular region adjacent to the clip.Patchy hypoattenuation in the supratentorial white matter suggesting mildchronic microvascular ischemic disease. Generalized age commensuratesulcal and ventricular prominence. The ventricles are slightly dilatedrelative to the sulci. No CT evidence of an acute infarct. No mass orextra-axial fluid collection. CTA: Moderate atherosclerotic calcifications of the aortic arch. Standardthree- vessel arch configuration. Tortuous retropharyngeal course of thecommon and internal carotid arteries, more prominent on the right than theleft. There are multifocal atherosclerotic calcifications of the carotidswithout an associated hemodynamically significant stenosis. Thesubclavian arteries are widely patent. The vertebral arteries arecodominant. No vertebral stenosis. Mildly tortuous but widely patent basilar artery. The public welfare worker are widelypatent. Small caliber P1 segments, with right larger than left posteriorcommunicating arteries. Streak artifact from the aneurysm clip partially obscures the rightinternal carotid artery. There is no visible residual aneurysm lumen. Nonew aneurysm. No findings to suggest a vascular malformation. The duralvenous sinuses appear patent. ORBITS: Lens implants. SINUSES/MASTOIDS: The frontal sinuses are not pneumatized. Leftwardbowing of the inferior nasal septum with an apical septal spur. Moderatedegenerative changes of the right temporomandibular joint. CALVARIUM: Hyperostosis frontalis interna. Postcraniotomy changes in theleft frontal region. OTHER: The skull base soft tissues are normal. Small amount of debris inthe external auditory canals. Prominent degenerative changes of thecervical spine with a reversal of the normal cervical lordosis. IMPRESSION: Aneurysm clip in the left supraclinoid region. No visible residualaneurysm lumen. No new aneurysm. No acute intracranial findings. Multifocal atherosclerotic calcifications, but no hemodynamicallysignificant stenosis or occlusion. -------- FINAL REPORT -------- Dictated By: Baljit Romo Dictated Date: 10/30/2024 09:56 ET Assigned Physician: Baljit Romo Reviewed and Electronically Signed By: Baljit Romo Signed Date: 10/30/2024 10:15 ET Workstation ID: [id number] Transcribed By: Self Edit Transcribed Date: 10/30/2024 09:56 ET Jacqui CASTORENA IMG CT PROCEDURES Final Resu lt from Last 3 Months Insurance [employer] MEDICARE MEDICAID - [place] Care Teams Porcelain Waxer Relationship Specialty Start Date End Date Sarai Trejo MD [address] [place] [phone] PCP - General Family Medicine 08/23/24
--- OUTSIDE RECORDS SUMMARY | 2024-12-11 13:04 | XMS_ITS | Encounter Summary ---
Author Organization [facility] Address [address] [place] [address] Phone Care Team Providers Care Wafer Fabricator Name Role Phone JavierHuey Primary Care Provider [phone] Sarai Trejo MD Primary Care Provider [phone] Sarai Trejo MD Primary Care Provider Encounter Details Date Type Department Care Team (Late st Contact Info) Description 08/12/2017 Ancillary Orders [facility] [address] [place] [address] [place] [address] Anjana Maya MD [address] [facility] 1 [place] [address] Palpitations Social History Tobacco Use Types Packs/Day Years Used Date Smoking Tobacco: Never Assessed Comments Unknown Sex and Gender Information Value Date Recorded Sex Assigned at Not on file Legal Sex Female 12:39 PM EDT Gender Identity Not on file Sexual Orientation Not on file documented as of this encounter Plan of Treatment Upcoming Encounters Date Type Department Care Team (Late Contact Info) Description 06/06/2025 11:30 AM EDT Office Visit [facility] [address] [place] [address] Zach Guzmán DO 22 [place] [address] documented as of this encounter Results * Holter Monitor 48 Hours (08/12/2017 10:36 AM EDT) Anatomical Region Laterality Modality Heart Other Narrative 08/12/2017 5:35 PM EDT 48 hour Holter monitor report 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 Average heart rate is 73 bpm Minimum heart rate 51 bpm Maximum heart rate 1 29 bpm in sinus tachycardia Less than 1% PACs or PVCs No atrial for ablation of atrial flutter No ventricular arrhythmias Few patient activations in sinus rhythm us Anjana Maya MD [facility] ORDERABLE S Final Result documented in this encounter Visit Diagnoses Diagnosis Palpitations Palpitations documented in this encounter Care Teams Wafer Fabricator Relationship Specialty Start Date End Date Huey Herrera DO [address] [place] [address] PCP - General Cardiology 07/25/20 06/05/24 Sarai Trejo MD [address] [place] [address] PCP - General 07/24/20 07/24/20 Sarai Trejo MD [address] [place] [address] PCP - General Family Medicine 06/06/24 documented as of this encounter Additional Source Comments The information contained in this document represents components of the legal health record. It is not the complete legal health record.[facility]
--- OUTSIDE RECORDS SUMMARY | 2024-12-11 13:04 | XMS_ITS | Encounter Summary ---
Author Organization [facility] Address [address] [place] [address] Phone Care Team Providers Care Obgyn Hospitalist Physician Name Role Phone Huey Herrera DO Primary Care Provider [phone] Sarai Trejo MD Primary Care Provider [phone] Sarai Trejo MD Primary Care Provider [phone] Encounter Details Date Type Department Care Team (Late st Contact Info) Description 07/24/2020 Ancillary Orders Non-Invasive [place] [address] Mary Davis MD [address] [place] [phone] [email or web address] Palpitations Social History Tobacco Use Types Packs/Day [...] AM EDT Office Visit [facility] [address] [place] [address] Zach [place]zmán [place] [address] [email or web address] documented as of this encounter Visit Diagnoses Diagnosis Palpitations documented in this encounter Care Teams Obgyn Hospitalist Physician Relationship Specialty Start Date End Date Huey Herrera DO [address] [place] [address] PCP - General Cardiology 07/25/20 06/05/24 Sarai Trejo MD [facility] [place] [address] PCP - General 07/24/20 07/24/20 [place] [address] PCP - General Family Medicine 06/06/24 documented as of this encounter Additional Source Comments The information contained in this document represents components of the legal health record. It is not the complete legal health record.[facility]
[2024-12-11 13:54] LABS: Alanine Aminotransferase 23 U/L (0-31); Albumin Level 4.6 g/dL (3.5-5.0); Alkaline Phosphatase 65 U/L (39-117); Anion Gap 14 (12-20); Aspartate Amino Transferase 28 U/L (5-31); Blood Urea Nitrogen 17 mg/dL (9-16); Calcium 10.0 mg/dL (8.4-10.2); Carbon Dioxide 29 mmol/L (22-29); Chloride 101 mmol/L (96-108); Estimated Glomerular Filt Rate > 60; Potassium 4.7 mmol/L (3.3-5.1); Sodium 139 mmol/L (135-145); Total Protein 7.7 g/dL (6.5-8.0)
[2024-12-11 13:57] LABS: Parathyroid Hormone Intact 31.4 pg/mL (8.7-77.1)
== END 2024-12-11 10:38 | disposition home or self-care (01) ==
LOC: HO.HHCL 10:37
PROVIDERS: PCP Family Medicine; Visit Provider Family Medicine
DX: I10 Essential (primary) hypertension (principal); E83.52 Hypercalcemia
CPT/HCPCS: 36415; 80053; 82306; 83970

== ENCOUNTER 2025-01-17 10:30 | Outpatient (AMB) | payer OTHER, SELFPAY ==
--- OUTSIDE RECORDS SUMMARY | 2024-01-18 12:45 | XMS_ITS | Encounter Summary ---
Author Organization [facility] Address [address] [place] [address] Care Team Providers Care Client Manager Name Role Phone Unavailable Primary Care Provider Unavailabl e Encounter Details Date Type Department Care Team (Late st Contact Info) Description 01/18/2024 12:45 PM EDT Hospital Encounter TH HISTORIC ENCOUNTERS EASTERN CONVERSION ONLY Lia Ortega MD [address] [place] [address] Social History Tobacco Use Types Packs/Day Years [...] family gathering she used to go to mosque she is unable to anymore she was [...] certain foods and avoiding excessive caffeine/NSAIDs. -RTC [id number] for follow up The patient and I [...] 50 minutes. The majority of the actual [id number] visit was spent counseling the patient with respect to the current neurological picture. Lia Ortega MD documented in this encounter Plan of Treatment Upcoming Encounters Date Type Department Care Team (Late st Contact Info) Description 04/02/2025 3:30 PM EST Office Visit [facility] [address] [place] [address] Lia Ortega MD [address] [place] [phone] documented as of this encounter Visit Diagnoses Not on filedocumented in this encounter
--- NOTE | 2025-01-17 10:43 | MHC.OFFVIS ---
Vital Signs 01/17/25 10:49 Height 5 ft 3 in Weight 160 lb 14.999 oz BMI 28.5 BP 124/62 Blood Pressure Location Lt brachial Position Sitting Pulse 81 Pulse Source Pulse Oximeter Intake Visit Reasons: 3 mth f/up Intake Note: 3 mth f/up- echo Training Representative Required: No Accompanied by: Self / Same As Patient Allergies white fish Allergy (Intermediate, Uncoded 07/17/24 09:21) body swelling, redness Medication List - Last Reconciled 01/17/25 by Ian He MD acetaminophen 1,000 mg PO Q8H PRN albuterol sulfate 1 amp inhalation Q4-6H PRN albuterol sulfate 90 mcg/actuation (ProAir HFA) 2 puffs inhalation Q4-6H PRN amlodipine 5 mg PO QAM aspirin 81 mg PO DAILY atorvastatin 40 mg PO BEDTIME blood sugar diagnostic (Ventec Life Systemsuch Ultra Test strips) As directed cetirizine 5 mg PO QAM cholecalciferol (vitamin D3) 25 mcg PO QAM duloxetine mg PO fluticasone propion-salmeterol 250-50 mcg/dose 1 ea PO BID furosemide 20 mg PO .mwf lancets (Kayse WirelessTouch Delica Plus Lancet) As directed levothyroxine 88 mcg PO DAILY@0600 magnesium oxide 400 mg PO Q OTHER DAY metformin ER 1,000 mg PO BID@1300,1900 metoprolol tartrate 25 mg PO BID 90 days montelukast 10 mg PO BEDTIME multivitamin (Multiple Vitamins tablet) 1 tab PO DAILY pantoprazole 40 mg PO DAILY piroxicam 10 - 20 mg PO QAM repaglinide 3 mg PO TID sennosides (senna) 8.6 mg PO BID PRN HPI Comments Details: 79-year-old female was referred to us for question cardiomyopathy. There is no echocardiography a previous records available currently. She has background history of diabetes, hypertension, bronchial asthma/COPD and history of of cerebral aneurysm. She noticed sudden episode of sweating and noticed her blood pressure be elevated at 150 systolic. She had no chest discomfort shortness of breath. She said this episode improved and next blood pressure was better. She is denying any chest discomfort or significant shortness of breath otherwise. She has been following with Dr. Terrell closely and has been stable. Blood pressure in the office is good. Overall no obvious concerns or symptoms today. She was referred for echocardiography and Holter monitoring. Both were normal. She returns and is feeling good. She is complaining of varicose veins on both legs. 11/09/2022: She returns for follow-up. She is complaining of dyspnea on exertion. She has known COPD and bronchial asthma. Blood pressure is mildly elevated. She is taking amlodipine 2.5 mg once a day and metoprolol tartrate 25 mg twice a day. No chest discomfort. EKG showing left bundle-branch block. 07/19/23: She returns for follow-up. He had echocardiography performed for left bundle-branch block which showed normal biventricular function. On follow-up she is complaining of some sharp left-sided chest pains which have been off and on with activity and at rest. She also gets some shortness of breath when these symptoms happen. She has not had any chest discomfort before. Blood pressure is normal in the office but at home she has readings of 160s systolic. 01/26/24: Here for f/u. She is frail and has been walking with walker. She is reporting surgery for aortic aneurysm. Will get records. Echo was normal. Lexiscan previously was normal. 06/12/24: She is here for follow-up. She is saying she has been getting more short of breath with activities. Not coughing up any phlegm. No fevers or chills. She is saying asthma control is okay and she has been seeing her addiction social worker regularly. Denying any orthopnea or PND. We did a chest x-ray today. By my read she has central congestion and signs of heart failure. We will wait for official report of the chest x-ray. 01/17/2025: She is here for follow-up. She is saying her breathing has been stable. She gets fatigued easily. 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 She is saying she gets a lot of pain in that is area and has seen doctors in [place] have told her that she may have migraine. She uses Tylenol occasionally at bedtime. Previously Lasix was cut to 20 mg because she was complaining of dizziness. She is saying that she is even using half of Lasix and takes it on every other day. Unclear what dose she is taking currently. She drinks a lot of water and has frequent urination. [facility] Medical History COPD (chronic obstructive pulmonary disease) Allergic rhinitis Venous insufficiency Hx of cardiomyopathy LBBB (left bundle branch block) Urge incontinence Brain aneurysm Back pain Restrictive airway disease Bronchial asthma Hemorrhoids Arthritis Depression Hypothyroidism Migraine headache Asthma Cubital tunnel syndrome Abdominal hyperesthesia Altered bowel habits Dyspepsia Gallstone pancreatitis Calculus of gallbladder Lipoma of other skin and subcutaneous tissue Hyperlipidemia DM II (diabetes mellitus, type II), controlled Rotator cuff tear arthropathy of right shoulder Subacromial impingement Subacromial bursitis Surgical History History of cardiac catheterization Hx of colonoscopy H/O craniotomy S/P surgical manipulation of knee joint History of shoulder surgery History of total right knee replacement History of total left knee replacement Family History Son Hypertension Brother Colon cancer Social History Household Members: None Housing: Apartment Are you a primary rn primary care to a significant other at home: No Do you presently have visiting nurse or other home services: Yes Alcohol intake: never Patient Tobacco Use Status: Former Tobacco user Tobacco use type: Cigarette service: No Current occupational status: disabled Review of Systems Const Denies chills, Denies fatigue, Denies fever(s), Denies frequent falls, Denies weakness, Denies weight gain and Denies weight loss ENT Denies dizziness Card Denies chest pain, Denies leg edema, Denies lightheadedness, Denies palpitations, Denies dyspnea, Reports dyspnea on exertion and Reports orthopnea Resp Denies cough, Denies dyspnea and Reports dyspnea on exertion GI Denies hematochezia Musc Denies abnormal gait, Denies muscle weakness, Denies numbness, Denies radiating pain into limb and Denies tingling Neuro Denies abnormal gait, Denies dizziness, Denies frequent falls, Denies numbness, Denies tingling and Denies weakness Endo Denies fatigue and Denies palpitations Physical Exam Vital Signs: Last Vital Signs Pulse 81 01/17/25 10:49 BP 124/62 01/17/25 10:49 BMI result Body Mass Index 28.5 GENERAL APPEARANCE: in no acute distress, pleasant. NECK: no carotid bruit, no jugular venous distention. SKIN: no suspicious lesions, warm and dry. HEART: no murmurs, regular rate and rhythm. LUNGS: Clear to auscultation ABDOMEN: soft, nontender. EXTREMITIES: no edema. Varicose veins. PERIPHERAL PULSES: equal. NEUROLOGIC: No gross deficits, AAO X 3 Assessment & Plan Assessment & Plan (1) Dyspnea: Code(s): R06.00 - Dyspnea, unspecified Category: Medical (2) LBBB (left bundle branch block): Code(s): I44.7 - Left bundle-branch block, unspecified Category: Medical (3) Essential hypertension: Code(s): I10 - Essential (primary) hypertension Category: Medical Plan Pleasant 79-year-old lady who is here for follow-up. She has background history of asthma and chronic left bundle-branch block. Echocardiography has shown low normal ejection fraction. She was seen in May 2024 and at that time she was in congestive heart failure. She was started on 40 mg of Lasix with improvement in symptoms but was complaining of some lightheadedness and on follow up with Christie Lasix was decreased to 20 mg. She drinks lot of water and has frequent urination. She is saying that she has been taking Lasix every other day and even on days she does not take it she has frequent urination. Clinically she appears to be euvolemic. I have advised her to take Lasix 20 mg on Wednesday and Wednesday. Also advised her that she should not be drinking a lot of water before she goes to bed because that could be the reason she is waking up frequently at night. With a history of diabetes, glycemic control is also a question that is that playing a role in her frequent urination. Thank you for allowing me to participate in the care of your patient. Please feel free to contact me if you have any questions. Coding Level of Care Code Est Pt Level 4 (87000) Diagnoses Dyspnea R06.00 LBBB (left bundle branch block) I44.7 Essential hypertension I10
[2025-01-17 10:49] VITALS: BP 124/62; PULSE 81; BMI 28.5
--- OUTSIDE RECORDS SUMMARY | 2025-01-17 13:02 | XMS_ITS | Encounter Summary ---
Author Organization [employer] Address [address] [facility] 7[address] [place] [address] Care Team Providers Care Real Time Operator Name Role Phone Sarai Trejo MD Primary Care Provider [phone] Reason for Visit * Reason Comments Med Refill Encounter Details Date Type Department Care Team ([facility] st Contact Info) Description 12/19/2024 Refill [facility] [address] [place], [place] [phone] Sarai Trejo MD 230 [place], [place] [phone] Social History Tobacco Use Types Packs/Day Years [...] Care Team (Late st Contact Info) Description 02/14/2025 10:15 AM EST Office Visit [facility] 230 [place] [address] Shira García documented as of this encounter Goals Goal Patient Goal Type Associated Problems Recent Progress Patient-Stated? Author Blood Pressure < 140/90 Blood Pressure 138/66(2024 10:42 AM EDT) No Yury Bee, PharmRosy Hemoglobin A1c < 7 Result Component 7.5( 9:56 AM EDT) No Yury Bee PharmD documented as of this encounter Visit Diagnoses Not on filedocumented in this encounter Additional Health Concerns Assessment Noted Time PHQ-9 Depression Total Score: 0 09/22/19 25 10:26 AM EDT documented as of this encounter Care Teams Real Time Operator Relationship Specialty Start Date End Date Sarai Trejo MD [address] [place] [address] PCP - General Family Medicine 03/22/18 documented as of this encounter
--- OUTSIDE RECORDS SUMMARY | 2025-01-17 13:02 | XMS_ITS | Encounter Summary ---
Author Organization [employer] Address [address] [facility] [address]t [place] [address] Care Team Providers Care Shot Man Name Role Phone Sarai Trejo MD Primary Care Provider [phone] Encounter Details Date Type Department Care Team (Late st Contact Info) Description 11/06/2022 Orders Only [facility] [address] [place] [address] Sarai Trejo MD 230 [place], [place] [phone] Right arm pain (Primary Dx); Right elbow [...] Description 02/14/2025 10:15 AM EST Office Visit [facility] [address] [place], [place] [phone] Shira García documented as of this encounter Visit Diagnoses Diagnosis Right arm pain- Primary Pain in soft tissues of limb Right elbow pain Pain in joint, upper arm Acute pain of right shoulder documented in this encounter Care Teams Shot Man Relationship Specialty Start Date End Date Sarai Trejo MD [address] [place] [address] PCP - General Family Medicine 03/22/18 documented as of this encounter
--- OUTSIDE RECORDS SUMMARY | 2025-01-17 13:02 | XMS_ITS | Encounter Summary ---
Author Organization [employer] Address [address] [facility] 7t [place] [address] Care Team Providers Care Meat Hanger Name Role Phone Sarai Trejo MD Primary Care Provider [phone] Encounter Details Date Type Department Care Team (Late st Contact Info) Description 12/11/2022 Orders Only [facility] [address] [place], [place] [phone] Sarai Trejo MD 230 [place], [place] [phone] Chronic intractable headache, unspecified headache type (Primary Dx); Female stress incontinence; Primary hypertension; Type 2 diabetes mellitus without complication, without long-term current use of insulin ([facility]); Weight loss; Postoperative hypothyroidism Social History Tobacco [...] Description 02/14/2025 10:15 AM EST Office Visit [facility] [address] [place], [place] [phone] Shira García Scheduled Orders Name Type Priority Associated Diagnoses Orde r Schedule Vitamin B12/Folate, Serum Panel Lab Routine Type 2 diabetes mellitus without complication, without long-term current use of insulin ([facility]) Expected: 12/11/2022 (Approximate), Expires: 12/12/2023 Albumin, Random Urine W/Creatinine Lab Routine Type 2 diabetes mellitus without complication, without long-term current use of insulin ([facility]) Expected: 12/11/2022 (Approximate), Expires: 12/12/2023 Hemoglobin A1c Lab Routine Type 2 diabetes mellitus without complication, without long-term current use of insulin ([facility]) Expected: 12/11/2022 (Approximate), Expires: 12/12/2023 Comprehensive Metabolic Panel Lab Routine Type 2 diabetes mellitus without complication, without long-term current use of insulin ([facility]) Expected: 12/11/2022 (Approximate), Expires: 12/12/2023 Lipid Panel with Reflex to Direct LDL Lab Routine Type 2 diabetes mellitus without complication, without long-term current use of insulin ([facility]) Expected: 12/11/2022 (Approximate), Expires: 12/12/2023 TSH W/Reflex [...] AM EDT Narrative 12/24/2022 11:33 AM EDT [facility] [address] [place] [address] Mammography Report Signed Patient: Aaliyah Brennan I MR#: [id number] : 1945 Acct:[id number] Age/Sex: 77 / F ADM Date: 12/23/22 Loc: [facility] Attending Dr: Sarai Trejo MD Ordering Physician: Sarai Trejo MD Results: Date of Service: 12/23/22 Follow Up: Procedure(s): XR DEXA axial skeleton Accession Number(s): [id number] cc: Sarai Trejo MD EXAMINATION: BONE DENSITOMETRY CLINICAL INDICATION: Osteopenia. Bisphosphonate treatment. COMPARISON: Previous BD dated 09/05/2020 and baseline BD dated 01/28/2007. TECHNIQUE: Using a PicApp DXA System (software version: 13.1) manufactured by [employer], dual-energy x-ray absorptiometry was performed of the [...] in OV> 12/24/22 1129 DD/ 1055 TD/TT: Performance Engineer: DB Procedure Note Donotuseinterpreter, Image - 12/24/2022 [place] [facility] [address] [place] [address] Mammography Report Signed Patient: Aaliyah Brennan [facility]#: [id number] : 5Acct:[id number] Age/Sex: 77 / FADM Date: 12/23/22 Loc: [facility] Attending Dr: Sarai Trejo MD Ordering Physician: Sarai Trejo MDResults: Date of Service: 12/23/22Follow Up: Procedure(s): XR DEXA axial skeleton Accession Number(s): [id number] cc: Sarai Trejo MD EXAMINATION: BONE DENSITOMETRY CLINICAL INDICATION: Osteopenia. Bisphosphonate treatment. COMPARISON: Previous BD dated 09/05/2020 and baseline BD dated 01/28/2007. TECHNIQUE: Using a PicApp DXA System (software version: 13.1) manufactured by [employer], dual-energy x-ray absorptiometry was performed of the [...] in OV> 12/24/22 1129 DD/ 1055 TD/TT: Performance Engineer: DB Sarai Trejo MD IMG XR PROCEDURES Edited Result - Final documented in this encounter Visit Diagnoses Diagnosis Chronic intractable headache, unspecified headache type- Primary Female stress incontinence Primary hypertension Unspecified essential hypertension Type 2 diabetes mellitus without complication, without long-term current use of insulin (HCC) Weight loss Loss of weight Postoperative hypothyroidism Postsurgical hypothyroidism documented in this encounter Care Teams Meat Hanger Relationship Specialty Start Date End Date Sarai Trejo MD [address] [place] [address] PCP - General Family Medicine 03/22/18 documented as of this encounter
--- OUTSIDE RECORDS SUMMARY | 2025-01-17 13:02 | XMS_ITS | Clinical Summary ---
Author Organization [facility] Address [address] [facility] [address] [place] [address] Phone Care Team Providers Care Americanization Teacher Name Role Phone Sarai Trejo MD Primary Care Provider [phone] Allergies Active Allergy Reactions Criticality Noted Date [...] and this will be done at [address] at [facility]. She states that she is willing [...] 11:30 AM EDT Office Visit [facility] [address] [place] [address] Zach Guzmán DO [address] [place] [address] Health Maintenance Due Date Last Done Comments LIPID PANEL 1945 TSH LEVEL 1945 DEPRESSION SCREENING 1956 SMOKING Hx and SMOKELESS TOBACCO SCREENING 1957 ZOSTER VACCINES (1 of 2) 1994 OSTEOPOROSIS [...] EDT) SODIUM 140 133 - 146 mmol/L [facility] CHLORIDE 101 96 - 108 mmol/L [facility] POTASSIUM 4.7 3.3 - 5.1 mmol/L [facility] CO2 30 21 - 35 mmol/L [facility] BUN 21(H) 6 - 19 mg/dL [facility] CREATININE 0.60 0.5 - 1.5 mg/dL [facility] GLUCOSE 128(H) 70 - 99 mg/dL [facility] CALCIUM 10.6(H) 8.4 - 10.3 mg/dL [facility] EGFR 91 >59 mL/min/1.7 3m2 [facility] Comment:Estimated glomerular filtration rate calculated using the CKD-EPI refit equation. ANION GAP 14 10 - 20 mmol/L [facility] Blood 06/06/2024 12:3 1 PM EDT 06/06/2024 12:37 PM EDT Zach Guzmán DO LAB BLOOD ORDERABLES Final Resul t [facility] [address] [place] [address] from Last 3 Months or Most Recently Relevant to Health Maintenance Insurance MEDICARE PART A & B MEDICARE REPLACEMENT MEDICARE PART A & B [place] [address] [place] [address] MEDICARE REPLACEMENT MEDICARE PART A & B MEDICARE REPLACEMENT [place] [id number] MEDICARE PART A & B MEDICARE PART A & B MEDICARE PART A & B Care Teams Americanization Teacher Relationship Specialty Start Date End Date Sarai Trejo MD [address] [place] [address] PCP - General Family Medicine 06/06/24 Additional Source Comments The information contained in this document represents components of the legal health record. It is not the complete legal health record.[facility]
--- OUTSIDE RECORDS SUMMARY | 2025-01-17 13:02 | XMS_ITS | Encounter Summary ---
Author Organization [employer] Address [address] [facility] [address] [place] [address] Care Team Providers Care Security Representative Name Role Phone Sarai Trejo MD Primary Care Provider [phone] Encounter Details Date Type Department Care Team ([facility] st Contact Info) Description 12/20/2024 Orders Only [facility] MEDICINE [address] [place], [place] [phone] Sarai Trejo MD [address] [place], [place] [phone] Social History Tobacco Use Types Packs/Day Years Used Date Smoking Tobacco: Former Cigarettes Passive Smoke Exposure: Past Smokeless Tobacco: Never Depression Answer Date Recorded Patient Health Questionnaire-9 Score 0 09/21/2024 Patient Health Questionnaire-9 Score 0 09/21/2024 Last PHQ-9: Questionnaire Data Not on file 0 09/21/2024 Housing Stability Answer Date Recorded What is your housing situation today? I have [place] 06/05/[address] you li [...] Description 02/14/2025 10:15 AM EST Office Visit [facility] ADULT DENTAL [address] [place] [address] Shira García documented as of this encounter Goals Goal Patient Goal Type Associated Problems Recent Progress Patient-Stated? Author Blood Pressure < 140/90 Blood Pressure 138/66(2024 10:42 AM EDT) No Yury Bee, PharmD Hemoglobin A1c < 7 Result Component 7.5( 9:56 AM EDT) No Yury Bee PharmD documented as of this encounter Visit Diagnoses Not on filedocumented in this encounter Additional Health Concerns Assessment Noted Time PHQ-9 Depression Total Score: 0 09/22/19 25 10:26 AM EDT documented as of this encounter Care Teams Security Representative Relationship Specialty Start Date End Date Sarai Trejo MD [address] [place] [address] PCP - General Family Medicine 03/22/18 documented as of this encounter
--- OUTSIDE RECORDS SUMMARY | 2025-01-17 13:02 | XMS_ITS | Encounter Summary ---
Author Organization [employer] Address [address] [facility] 7t [place] [address] Care Team Providers Care Snow Blower Name Role Phone Sarai Trejo MD Primary Care Provider [phone] Reason for Visit * Reason Onset Date Comments Lab Orders 02/24/2022 Encounter Details Date Type Department Care Team ([facility] st Contact Info) Description 02/24/2022 Telephone [facility] MEDICINE [address] [place], [place] [phone] Sarai Trejo MD [address] [place], [place] [phone] Lab Orders Social History Tobacco Use Types [...] requesting lab order to be sent to [facility] . . Pt informed received a call about 2 weeks ago to get labs done down stairs . Fashion Designer was unable to find orders. documented in this encounter Plan of Treatment Upcoming Encounters Date Type Department Care Team (Late st Contact Info) Description 02/14/2025 10:15 AM EST Office Visit [facility] ADULT DENTAL [address] [place] [address] Shira García documented as of this encounter Visit Diagnoses Not on filedocumented in this encounter Care Teams Snow Blower Relationship Specialty Start Date End Date Sarai Trejo MD [address] [place], [place] [phone] PCP - General Family Medicine 03/22/18 documented as of this encounter
--- OUTSIDE RECORDS SUMMARY | 2025-01-17 13:02 | XMS_ITS | Encounter Summary ---
Author Organization [employer] Address [address] [facility] 7t [place] [address] Care Team Providers Care Food Services Manager Name Role Phone Sarai Trejo MD Primary Care Provider [phone] Reason for Visit * Reason Comments Med Refill Encounter Details Date Type Department Care Team (Late st Contact Info) Description 12/03/2022 Refill [facility] MEDICINE [address] [place], [place] [phone] Sarai Trejo MD [address] [place], [place] [phone] Coronary artery disease involving [place] coronary artery of [place] heart without angina pectoris Social History Tobacco [...] 10:15 AM EST Office Visit [facility] ADULT DENTAL [address] [place], [place] [phone] Shira García documented as of this encounter Visit Diagnoses Diagnosis Coronary artery disease involving [place] coronary artery of [place] heart without angina pectoris documented in this encounter Care Teams Food Services Manager Relationship Specialty Start Date End Date Sarai Trejo MD [address] [place] [address] PCP - General Family Medicine 03/22/18 documented as of this encounter
--- OUTSIDE RECORDS SUMMARY | 2025-01-17 13:02 | XMS_ITS | Encounter Summary ---
Author Organization [employer] Address [address] [facility] [facility] [address] [facility] [address] 7[address] [place] [address] Care Team Providers Care Reservations Specialist Name Role Phone Sarai Trejo MD Primary Care Provider [phone] Encounter Details Date Type Department Care Team ([facility] st Contact Info) Description 04/27/2023 Orders Only [facility] MEDICINE [address] [place], [place] [phone] Sarai Trejo MD [address] [place], [place] [phone] Social History Tobacco Use Types Packs/Day Years [...] Description 02/14/2025 10:15 AM EST Office Visit [facility] ADULT DENTAL [address] [place] [address] Shira García documented as of this encounter Goals Goal Patient Goal Type Associated Problems Recent Progress Patient-Stated? Author Blood Pressure < 140/90 Blood Pressure 138/66(2024 10:42 AM EDT) No Yury Bee, PharmD Hemoglobin A1c < 7 Result Component 7.5( 9:56 AM EDT) No Yury Bee PharmD documented as of this encounter Visit Diagnoses Not on filedocumented in this encounter Care Teams Reservations Specialist Relationship Specialty Start Date End Date Sarai Trejo MD [address] [place] [address] PCP - General Family Medicine 03/22/18 documented as of this encounter
--- OUTSIDE RECORDS SUMMARY | 2025-01-17 13:02 | XMS_ITS | Encounter Summary ---
Author Organization [employer] Address [address] [facility] [address] [place] [address] Care Team Providers Care Orange Picker Machine Operator Name Role Phone Sarai Trejo MD Primary Care Provider [phone] Encounter Details Date Type Department Care Team ([facility] st Contact Info) Description 01/29/2023 Orders Only [facility] MEDICINE [address] [place], [place] [phone] Yoli Pardo MD [address] [place], [place] [phone] Social History Tobacco Use Types Packs/Day Years [...] Description 02/14/2025 10:15 AM EST Office Visit [facility] ADULT DENTAL [address] [place] [address] Shira García documented as of this encounter Goals Goal Patient Goal Type Associated Problems Recent Progress Patient-Stated? Author Blood Pressure < 140/90 Blood Pressure 138/66(2024 10:42 AM EDT) No Yury Bee, PharmD Hemoglobin A1c < 7 Result Component 7.5( 9:56 AM EDT) No Yury Bee PharmD documented as of this encounter Visit Diagnoses Not on filedocumented in this encounter Care Teams Orange Picker Machine Operator Relationship Specialty Start Date End Date Sarai Trejo MD [address] [place] [address] PCP - General Family Medicine 03/22/18 documented as of this encounter
--- OUTSIDE RECORDS SUMMARY | 2025-01-17 13:02 | XMS_ITS | Encounter Summary ---
Author Organization [facility] Address [address] [facility] [address] [place] [phone] Phone Care Team Providers Care Subassemblies Wirer Name Role Phone Huey Herrera DO Primary Care Provider [phone] Sarai Trejo MD Primary Care Provider [phone] Reason for Referral * Consultation (Within 1 month) - Closed Specialty Diagnoses / Procedures Referred By Contac t Referred To Contact Endocrinology Diagnoses Osteoporosis, unspecified osteoporosis type, unspecified pathological fracture presence Sarai Trejo MD Phone: tel: fax: Zach Guzmán DO Phone: tel: fax: mailto:[email or web address] Referral ID Status Reason Start Date Expiration Date Visits Re quested Visits Authorized [id number] Closed 02/26/2023 02/27/2024 1 1 Encounter Details Date Type Department Care Team (Latest Contact Info) Description 02/26/2023 Transcribe Orders [facility] [address] [place] [phone] Zach Guzmán DO [address] [place] [id number] Osteoporosis, unspecified osteoporosis type, unspecified pathological fracture [...] 11:30 AM EDT Office Visit [facility] [address] [place] [phone] Zach Guzmán DO [address] [place] [address] [email or web address] Scheduled Referrals Name Type Priority Associated Diagnoses Orde r Schedule Ambulatory referral to [facility] Endocrinology Outpatient Referral Routine Osteoporosis, unspecified osteoporosis type, unspecified pathological fracture presence Ordered: 02/26/2023 documented as of this encounter Visit Diagnoses Diagnosis Osteoporosis, unspecified osteoporosis type, unspecified pathological fracture presence- Primary documented in this encounter Care Teams Subassemblies Wirer Relationship Specialty Start Date End Date Huey Herrera DO [address] [place] [id number] PCP - General Cardiology 07/25/20 06/05/24 Sarai Trejo MD [address] [place] [phone] PCP - General Family Medicine 06/06/24 documented as of this encounter Additional Source Comments The information contained in this document represents components of the legal health record. It is not the complete legal health record.[facility]
--- OUTSIDE RECORDS SUMMARY | 2025-01-17 13:02 | XMS_ITS | Clinical Summary ---
Author Organization [facility] Address [address] [phone] Care Team Providers Care Ccnp Name Role Phone Unavailable Primary Care Provider [...] Health Maintenance Due Date Last Done Comments COVID-19 Vaccine (#1) 06/12/1946 Depression Screening 1957 [...]
--- OUTSIDE RECORDS SUMMARY | 2025-01-17 13:02 | XMS_ITS | Clinical Summary ---
Author Organization [employer] Address [address] [place] [address] Care Team Providers Care Template Cutter Name Role Phone Sarai Trejo MD Primary Care Provider [phone] Allergies Active Allergy Reactions Criticality Noted Date [...] as directed by MD. 30 patch 11 024 Active Multiple Vitamin (Multivitamin) tablet TAKE 1 TABLET BY MOUTH EVERY MORNING WITH FOOD 90 tablet 3 024 Active clotrimazole-bet amethasone (Lotrisone) creamIndications :Rash Apply to rash on buttocks two times daily 45 g 024 Active cetirizine (ZyrTEC) 5 MG tablet Take 1 tablet (5 mg) by mouth in the morning. 90 tablet 3 024 Active TRUEplus Lancets 33G miscIndications: Type 2 diabetes mellitus with hyperglycemia (HCC) TEST BLOOD SUGAR EVERY DAY DIRECTED 100 each 5 024 Active Dextromethorphan -guaiFENesin (Mucinex DM) 30-600 MG tablet sustained-releas e 12 hour Use 1 tab TID 28 tablet 024 Active repaglinide (Prandin) 2 MG tablet [...] stripIndications :Type 2 diabetes mellitus with hyperglycemia (HCC) TEST BLOOD SUGAR ONCE DAILY 50 strip 11 Active metFORMIN XR (Glucophage-XR) 500 MG 24 hr tablet TAKE 2 TABLETS BY MOUTH TWICE DAILY IN THE MORNING AND EVENING 360 tablet 3 025 Active metoprolol tartrate (Lopressor) 25 MG tablet TAKE 1 TABLET BY MOUTH TWICE DAILY IN THE MORNING AND IN THE EVENING 180 tablet 3 Active levothyroxine (Synthroid, Levoxyl) 88 MCG tablet TAKE 1 TABLET BY MOUTH EVERY MORNING 90 tablet 3 025 Active montelukast (Singulair) 10 MG tablet TAKE 1 TABLET BY MOUTH EVERY EVENING 90 tablet 3 025 Active Acetaminophen Extra Strength 500 MG tabletIndication s:Pain TAKE 2 TABLETS BY MOUTH EVERY 8 HOURS NEEDED 90 tablet 3 Active Lancets 33G misc 1 each by Other route Once per day. 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 90 tablet 3 025 2025 Active pantoprazole (ProtoNix) 40 MG EC tablet Take 1 tablet (40 mg) by mouth Once per day. 90 tablet 3 Active atorvastatin (Lipitor) 40 MG tablet TAKE 1 TABLET BY MOUTH AT BEDTIME 90 tablet 3 Active DULoxetine (Cymbalta) [address] capsule TAKE 1 CAPSULE BY MOUTH EVERY MORNING INCREASE TO TAKE 2 CAPSULES BY MOUTH EVERY MORNING si no se mejora Active furosemide (Lasix) 20 MG tablet Take 20 mg by mouth in the morning. Active clotrimazole (Lotrimin) 1 % cream Apply topically 2 times daily for 28 days. 30 g 2 025 2024 Active albuterol (2.5 MG/3ML) 0.083% nebulizer solutionIndicati ons:Moderate persistent asthma without complication INHALE 1 AMPULE USING A NEBULIZER EVERY 4 TO 6 HOURS NEEDED FOR WHEEZING OR SHORTNESS OF BREATH NO MORE THAN FOUR TIMES DAILY 90 mL 1 Active Blood Glucose Monitoring Suppl (Accu-Chek Guide Me) w/Device kitIndications:T ype 2 diabetes mellitus without complication, without long-term current use of insulin (HCC) 1 each Once per day. 1 kit Active Accu-Chek Softclix Lancets lancetsIndicatio ns:Type 2 diabetes mellitus without complication, without long-term current use of insulin (HCC) Use to check blood sugar daily 100 each 12 025 2025 Active glucose blood (Accu-Chek Guide Test) test stripIndications :Type 2 diabetes mellitus without complication, without long-term current use of insulin (HCC) Use to check blood sugar daily 100 each 12 025 2025 Active albuterol (2.5 MG/3ML) 0.083% nebulizer solutionIndicati ons:Moderate persistent asthma without complication INHALE 1 AMPULE USING A NEBULIZER EVERY 4 TO 6 HOURS NEEDED DIFFICULTY BREATHING. NO MORE THAN FOUR TIMES DAILY 75 mL 1 025 2024 Discontinued Active Problems Problem Noted Date Diagnosed Date Abfraction 12/21/2024 Excessive attrition of teeth 12/21/2024 Missing teeth, acquired 12/21/2024 Numbness of feet 06/05/2024 Assessment & Plan [...] Assessment & Plan (06/05/2024 5:54 PM EDT): -Building Energy Retrofit Technician: [facility], last seen in [...] Assessment & Plan (11/18/2023 12:26 PM EDT): -Building Energy Retrofit Technician: [facility], last seen in [...] Assessment & Plan (04/20/2023 12:15 PM EST): -Building Energy Retrofit Technician: [facility], last seen in [...] Assessment & Plan (06/30/2022 12:45 PM EDT): -Building Energy Retrofit Technician: [facility], last seen in [...] Assessment & Plan (06/05/2024 5:54 PM EDT): -Building Energy Retrofit Technician: [facility], last seen in [...] Assessment & Plan (11/19/2023 3:46 PM EDT): -Building Energy Retrofit Technician: [facility], last seen in [...] Assessment & Plan (08/21/2023 7:54 AM EDT): -Building Energy Retrofit Technician: [facility], last seen in [...] Assessment & Plan (10/25/2022 6:02 AM EDT): -Building Energy Retrofit Technician: [facility], last seen in [...] Assessment & Plan (06/30/2022 12:44 PM EDT): -Building Energy Retrofit Technician: [facility], last seen in [...] Assessment & Plan (12/11/2024 5:17 AM EDT): -Building Energy Retrofit Technician: [facility], last seen in [...] Assessment & Plan (10/05/2024 6:15 AM EDT): -Building Energy Retrofit Technician: [facility], last seen in [...] Assessment & Plan (11/18/2023 12:26 PM EDT): -Building Energy Retrofit Technician: [facility], last seen in [...] Assessment & Plan (08/21/2023 7:52 AM EDT): -Building Energy Retrofit Technician: [facility], last seen in [...] Assessment & Plan (04/20/2023 12:14 PM EST): -Building Energy Retrofit Technician: [facility], last seen in [...] Assessment & Plan (02/13/2023 6:58 PM EST): -Building Energy Retrofit Technician: [facility], last seen in [...] Assessment & Plan (06/30/2022 12:45 PM EDT): -Building Energy Retrofit Technician: [facility], last seen in [...] CT Chronic headache 06/30/2022 Assessment & Plan (12/18/2024 11:26 AM EDT): Hx intracranial aneurysm left PCOM [...] neurologist. - Currently following with neurologist at [facility]. Last seen on 08/23/2024. Receiving Botox x2, which was ineffective. Considering Ubrelvy trial. Referred to neurosurgeon and CTA. - Evaluated by neurosurgeon and reviewed CTA. Given reassurance and recommended to continue following with current neurologist -Pt has tried amitriptyline, topiramate, verapamil, and [...] May to August 2024, which was ineffective - Continue duloexetine (Cymbalta) as prescribed by neurologist -Continue APAP prn -Imaging Hx 11/11/19 --CT [...] intracranial pathology. Age-indeterminate right nasal bone fracture. -CTA head and neck on 10/30/2024 Assessment & Plan (10/05/2024 6:34 AM EDT): [...] neurologist. - Currently following with neurologist at [facility]. Last seen on 08/23/2024. Receiving Botox [...] neurologist. - Currently following with neurologist at [facility]. Last seen on 04/11/24. Receiving Botox. [...] Plan (08/21/2023 7:50 AM EDT): -Seen by [facility] orthopedist -She initially [...] impairment - supportive family member - has HEARING AID SPECIALIST (cannot provide transportation) - associated conditions: Urinary incontinence; headache s/p IC aneurysm repair; osteoarthritis of multiple joints - uses a walker Assessment & Plan (11/19/2023 3:45 PM EDT): - evaluated by neurologist - still capable of living in the community with assistance - supportive family member - has HEARING AID SPECIALIST (cannot provide transportation) - associated conditions: Urinary incontinence; headache s/p IC aneurysm repair; osteoarthritis of multiple joints - uses a cane and walker Assessment & Plan (02/08/2023 1:06 PM EST): - evaluated by neurologist - still capable of living in the community with assistance - supportive family member - has HEARING AID SPECIALIST (cannot provide transportation) - associated conditions: Urinary incontinence; headache s/p IC aneurysm repair; osteoarthritis of multiple joints - uses a cane and walker Assessment & Plan (10/25/2022 5:43 AM EDT): - evaluated by neurologist - still capable of living in the community with assistance - supportive family member - has HEARING AID SPECIALIST (cannot provide transportation) - associated conditions: Urinary incontinence; headache s/p IC aneurysm repair; osteoarthritis of multiple joints - uses a cane and walker 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 -Most recent lab: 09/21/2024 TSH 1.03 -Continue current replacement Assessment & Plan (10/05/2024 6:18 AM EDT): [...] replacement Bronchial asthma 12/21/2014 Assessment & Plan (12/11/2024 1:47 PM EDT): - following with Dr. Terrell, [...] (08/25/2022 4:53 AM EDT): - following with [facility] pulmonology, Dr. Terrell, last seen on 08/03/22 - most recent exacerbation in June 2022 for CAP, required hospitalization and oxygen supplementation and antibiotic. - most recent PFT did not show significant obstructive airway disease, and showed restrictive airway disease - continue Wixela - continue albuterol HFA and neb prn - continue deep breathing exercise Fibromyalgia 09/18/2014 Assessment & Plan (12/18/2024 11:25 AM EDT): - currently taking duloexetine (Cymbalta) proscribed by neurologist History of artificial joint 05/31/2013 Hearing loss 10/15/2011 Type 2 diabetes mellitus 10/15/2011 Assessment & Plan (12/18/2024 11:15 AM EDT): - A1C 7.5% on 12/11/2024, increased 7.1% on 09/21/24 -Current medications: metformin 1000 mg bid; regalinide 3 mg tid. -Pt self-discontinued Jardiance again, due to worsening UI (beneficial for pt's HFpEF). Will try again. -Treatment Hx: glipizide - discontinued due to [...] and this will be done at [address] at [facility]. She states that she is willing [...] Pt took > 5 years of alendronate, 6535-0581, then restarted in [address] Guzmán Currently on zoledronic acid Continue weight bearing exercise. Continue adequate calcium and vitamin D intake Assessment & Plan (10/05/2024 6:26 AM EDT): Hx osteoporosis in 2000 DEXA on 09/05/20 T-score -2.2, osteopenia DEXA on 12/23/22 T-score -2.9, osteoporosis Pt took > 5 years of alendronate, 8500-2627, then restarted in [address] Guzmán Currently on zoledronic acid Continue weight bearing exercise. Continue adequate calcium and vitamin D intake Assessment & Plan (06/05/2024 10:05 AM EDT): Hx osteoporosis in 2000 DEXA on 09/05/20 T-score -2.2, osteopenia DEXA on 12/23/22 T-score -2.9, osteoporosis Pt took > 5 years of alendronate, 4999-6156, then restarted in [address] Guzmán Currently on zoledronic acid Continue weight bearing exercise. Continue adequate calcium and vitamin D intake Assessment & Plan (11/18/2023 6:26 AM EDT): Hx osteoporosis in 2000 DEXA on 09/05/20 T-score -2.2, osteopenia DEXA on 12/23/22 T-score -2.9, osteoporosis Pt took > 5 years of alendronate, 2695-4727, then restarted in [address] Guzmán Currently on zoledronic acid Continue weight bearing exercise. Continue adequate calcium and vitamin D intake Assessment & Plan (08/21/2023 7:55 AM EDT): Hx osteoporosis in 2000 DEXA on 09/05/20 T-score -2.2, osteopenia DEXA on 12/23/22 T-score -2.9, osteoporosis Pt took > 5 years of alendronate, 8482-0753, then restarted in [address] Guzmán Currently on zoledronic acid Continue weight bearing exercise. Continue adequate calcium and vitamin D intake Assessment & Plan (04/20/2023 12:16 PM EST): Hx osteoporosis in 2000 DEXA on 09/05/20 T-score -2.2, osteopenia DEXA on 12/23/22 T-score -2.9, osteoporosis Pt took > 5 years of alendronate, 7749-4346, then restarted in 2020 Pt requested to be referred to shaft headman for other medications. Referred to shaft headman. Dr. Guzmán's office. Patient has an upcoming appointment. Continue weight bearing exercise. Continue adequate calcium and vitamin D intake Assessment & Plan (02/13/2023 7:06 PM EST): Hx osteoporosis in 2000 DEXA on 09/05/20 T-score -2.2, osteopenia DEXA on 12/23/22 T-score -2.9, osteoporosis Pt took > 5 years of alendronate, 6883-3702, then restarted in 2020 Pt requested to be referred to shaft headman for other medications. Referred to shaft headman. Dr. Guzmán's office. Pt has not received an appt yet. Pt requests to be referred to another shaft headman. Informed that it may delay her appt [...] Pt here for a HDF admitted to [facility] from 06/30/22 until [...] follow-up 07/23/2022 10/25/2022 Depressive disorder 10/14/2011 10/06/19 25 Encounters Date Type Department Care Team Description 12/27/2024 Refill [facility] [address] [place] [address] Sarai Trejo MD Moderate persistent asthma without complication 12/26/2024 Refill [facility] [address] [place] [address] Sarai Trejo MD Type 2 diabetes mellitus without complication, without long-term current use of insulin (HCC) 12/21/2024 10:00 AM EDT Office Visit [facility] [address] [place] [address] Lester Terrazas DDS Abfraction (Primary Dx); Excessive attrition of teeth; Missing teeth, acquired 12/20/2024 Orders Only [facility] [address] [facility] [place] [address] Sarai Trejo MD 12/19/2024 Telephone [facility] [address] [place] [address] Sarai Trejo MD Medication Question 12/19/2024 Refill [facility] [address] [place] [address] Sarai Trejo MD 12/17/2024 Refill [facility] [address] [place] [address] Sarai Trejo MD 12/11/2024 10:00 AM EDT Office Visit [facility] [address] [place] [address] Sarai Trejo MD Primary hypertension (Primary Dx); Dyslipidemia; Chronic heart failure with preserved ejection fraction (CMS/HCC); Type 2 diabetes mellitus without complication, without long-term current use of insulin (CMS/HCC); Osteoporosis without current pathological fracture, unspecified osteoporosis type; Chronic intractable headache, unspecified headache type; Intractable chronic post-traumatic headache; Hypercalcemia; Moderate persistent asthma without complication; Postoperative hypothyroidism; Fibromyalgia 12/11/2024 Travel 12/08/2024 Telephone [facility] [address] [place] [address] Debbie Kimble MA 11/20/2024 Refill [facility] [address] [place] [address] Sarai Trejo MD Coronary artery disease 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 pectoris 11/17/2024 Refill [facility] [address] [place] [address] Sarai Trejo MD Insomnia, unspecified type 11/11/2024 Refill [facility] [address] [place] [address] Sarai Trejo MD 11/08/2024 Orders Only [facility] [address] [place] [address] Sarai Trejo MD from Last 3 Months [...] Not Answered Alcohol Use Standard Drinks/Week Comments Defer 0 (1 standard drink = 0.6 oz pur e alcohol) Depression Answer Date Recorded Patient Health Questionnaire-9 [...] the past 12 months, has t he [place], gas, oil or water company threatened to [...] Sign Reading Time Taken Comments Blood Pressure 138/66 12/21/2024 10:42 AM EDT Pulse 87 12/11/2024 9:54 AM [...] Description 02/14/2025 10:15 AM EST Office Visit [facility] [address] [place], [place] [phone] Shira García Health Maintenance Due Date Last Done Comments Dental Prophylaxis 1945 RSV Patients and Patients Aged 60 years or older (1 - 1-dose 75+ series) 12/14/2019 Influenza Vaccine (#1) 2024 , 02/08/2023, 02/01/2020, Additional history exists COVID-19 Vaccine ( season) 2024 06/05/2024, 04/13/2023, 10/06/2021, Additional history exists Diabetes: Hemoglobin A1C 03/12/2025 025, 09/21/2024, 06/05/2024, Additional history exists Diabetes: Foot Exam 06/05/2025 06/05/2024, 06/05/2024, 06/05/2024, Additional history exists SDOH Screening 06/05/2025 06/05/2024 Dental Oral Exam 06/22/2025 12/21/2024 Alcohol/Substance Use Screening 09/21/2025 09/21/2024 Depression Screening 09/21/2025 09/21/2024, 09/22/19 Diabetes: Urine Protein Screening 09/21/2025 09/21/2024, 02/15/2023, 10/19/2022, Additional history exists Lipid Panel 09/21/2025 09/21/2024, 09/2022, 10/19/2022, Additional history exists Eye Exam 10/06/2025 10/07/2023 Tobacco Screening 12/21/2025 12/21/2024 Dental X-Ray: Bitewings 12/22/2025 12/21/2024 DTaP/Tdap/Td Vaccines (2 - Td or Tdap) 07/13/2026 07/13/2016, 05/04/2011, 12/31/2005 Dental X-Ray: Full Mouth 12/23/2027 12/21/2024 Pneumococcal Vaccine: 50+ Years Completed 06/15/2014, 11/13/2013, [...] Pressure 138/66(2024 10:42 AM EDT) No Yury Bee PharmD Hemoglobin A1c < 7 Result Component 7.5( 9:56 AM EDT) No Yury Bee PharmD Procedures Procedure Name Priority Date/Time Associated Diagnosis Comments CASE PRESENTATION, DETAILED AND EXTENSIVE TREATMENT PLANNING Routine 12/21/2024 10:00 AM EDT INTRAORAL - COMPLETE SERIES OF RADIOGRAPHIC IMAGES Routine 12/21/2024 10:00 AM EDT COMPREHENSIVE ORAL EVALUATION - NEW OR ESTABLISHED PATIENT Routine 12/21/2024 10:00 AM EDT 7 FIXED PARTIAL DENTURE - PONTIC Routine 12/21/2024 12:00 AM EDT 10 FIXED PARTIAL DENTURE - PONTIC Routine 12/21/2024 12:00 AM EDT 12 FIXED PARTIAL DENTURE - PONTIC Routine 12/21/2024 12:00 AM EDT 14 PFM CROWN Routine 12/21/2024 12:00 AM EDT 13 PFM CROWN Routine 12/21/2024 12:00 AM EDT 11 PFM CROWN Routine 12/21/2024 12:00 AM EDT 9 PFM CROWN Routine 12/21/2024 12:00 AM EDT 8 PFM CROWN Routine 12/21/2024 12:00 AM EDT 6 PFM CROWN Routine 12/21/2024 12:00 AM EDT 5 PFM CROWN Routine 12/21/2024 12:00 AM EDT 4 PFM CROWN Routine 12/21/2024 12:00 AM EDT 3 PFM CROWN Routine 12/21/2024 12:00 AM EDT 28 O AMALGAM FILLING Routine 12/21/2024 12:00 AM EDT 20 DO COMPOSITE FILLING Routine 12/21/2024 12:00 AM EDT 14 DENTAL IMPLANT Routine 12/21/2024 12: 00 AM EDT 13 DENTAL IMPLANT Routine 12/21/2024 12: 00 AM EDT 11 DENTAL IMPLANT Routine 12/21/2024 12: 00 AM EDT 9 DENTAL IMPLANT Routine 12/21/2024 12:0 0 AM EDT 8 DENTAL IMPLANT Routine 12/21/2024 12:0 0 AM EDT 6 DENTAL IMPLANT Routine 12/21/2024 12:0 0 AM EDT 5 DENTAL IMPLANT Routine 12/21/2024 12:0 0 AM EDT 4 DENTAL IMPLANT Routine 12/21/2024 12:0 0 AM EDT 3 DENTAL IMPLANT Routine 12/21/2024 12:0 0 AM EDT PTH, INTACT WITHOUT CALCIUM Routine 12/11/2024 10:46 AM EDT Hypercalcemia VITAMIN D,25-OH,TOTAL,IA Routine 12/11/2024 10:46 AM EDT Hypercalcemia COMPREHENSIVE METABOLIC PANEL Routine 12/11/2024 10:46 AM EDT Primary hypertension POCT GLUCOSE Routine 12/11/2024 9:56 AM EDT Type 2 diabetes mellitus without complication, without long-term current use of insulin ([facility]) POCT GLYCOSYLATED HEMOGLOBIN (HGB A1C) Routine 12/11/2024 9:56 AM EDT Type 2 diabetes mellitus without complication, without long-term current use of insulin ([facility]) BI MAMMOGRAM SCREENING TOMOSYNTHESIS BILATERAL Routine 11/08/2024 9:50 AM EDT ALBUMIN, RANDOM URINE W/CREATININE Routine 09/21/2024 11:13 AM EDT Type 2 diabetes mellitus without complication, without long-term current use of insulin ([facility]) LIPID PANEL WITH REFLEX TO DIRECT LDL Routine 09/21/2024 11:13 AM EDT Type 2 diabetes mellitus without complication, without long-term current use of insulin ([facility]) DIABETES EYE EXAM Routine 10/07/2023 from Last 3 Months or Most Recently Relevant to Health Maintenance Results * Vitamin D, 25-Hydroxy, Total, Immunoassay (12/11/2024 10:46 AM EDT) Vitamin D 25-OH Total 52.4 >30 ng/mL [facility] Comment: Health Based Reference Values*< 20 ng/mL [id number] ng/mL Insufficient> 30 ng/mL Sufficient*Hanna GRANT. N Engl J Med. 2007;357:266-280There is no well-established upper level of normal vitamin Dlevels. Some laboratories use 50 ng/mL as an upper limit ofnormal. However, toxicity is patient-dependent and may occurat any level. Careful correlation with the patient'spresentation is necessary and, if there is concern forvitamin D toxicity, treatment should be consideredirrespective of the serum level.Care must be taken in interpreting Vitamin D [...] LC-MS/MS. Blood Venous blood specimen / Unknown 12/11/2024 10:46 AM EDT 12/11/2024 1:02 PM EDT us Sarai Trejo MD LAB BLOOD ORDERABLES Final Resul t [facility] [address] [place] [phone] * PTH, Intact Without Calcium (12/11/2024 10:46 AM EDT) Parathyroid Hormone, Intact 31.4 8.7 - 77.1 pg/mL [facility] Blood Venous blood specimen / Unknown 12/11/2024 10:46 AM EDT 12/11/2024 1:02 PM EDT us Sarai Trejo MD LAB BLOOD ORDERABLES Final Resul t [facility] [address] [place] [phone] * (ABNORMAL) Comprehensive Metabolic Panel (12/11/2024 10:46 AM EDT) Sodium 139 135 - 145 mmol/L [facility] Potassium 4.7 3.3 - 5.1 mmol/L [facility] Chloride 101 96 - 108 mmol/L [facility] Carbon Dioxide 29 22 - 29 mmol/L [facility] Anion Gap 14 12 - 20 [facility] Urea Nitrogen (BUN) 17(H) 9 - 16 mg/dL [facility] Creatinine, Serum 0.66 0.5 - 1.4 mg/dL [facility] Estimated Glomerular Filt Rate >60 [facility] Comment:Chronic Kidney Disea se: Estimated GFR < 60 mL/min/[id number] Kidney Disease: Estimated GFR < 15 mL/min/1.73m2 Glucose 197(H) 60 - 115 mg/dL [facility] Calcium 10.0 8.4 - 10.2 mg/dL [facility] Bilirubin, Total 0.5 0.0 - 1.0 mg/dL [facility] Aspartate Amino Transferase 28 5 - 31 U/L [facility] Alanine Aminotransferase 23 0 - 31 U/L [facility] Total Protein 7.7 6.5 - 8.0 g/dL [facility] Albumin Level 4.6 3.5 - 5.0 g/dL [facility] Alkaline Phosphatase 65 39 - 117 U/L [facility] Blood Venous blood specimen / Unknown 12/11/2024 10:46 AM EDT 12/11/2024 1:02 PM EDT Sarai Trejo MD LAB BLOOD ORDERABLES Final Resul t [facility] [address] [place] [phone] * (ABNORMAL) POCT glycosylated hemoglobin (Hgb A1c) (12/11/2024 9:56 AM EDT) Hemoglobin A1C 7.5(A) 4.0 - 5.7 % QC Media Lot # [id number] Lot# Expiration Date [id number] Blood Capillary blood specimen / Unknown 12/11/2024 9:56 AM EDT Sarai Trejo MD POINT OF CARE TEST ENTER/EDIT OR DERABLES Final Result * (ABNORMAL) POCT glucose manually resulted (12/11/2024 9:56 AM EDT) Glucose Blood, POC 255(A) 60 - 200 mg/dL QC Media Lot # [id number] Lot# Expiration Date [id number] Blood Capillary blood specimen / Unknown 12/11/2024 9:56 AM EDT Sarai Trejo MD POINT OF CARE TEST ENTER/EDIT OR DERABLES Final Result * BI Mammogram Screening Tomosynthesis Bilateral (11/08/2024 9:50 AM EDT) Anatomical Region Laterality Modality Breast Bilateral Mammography 11/08/2024 9:50 AM EDT Narrative 11/09/2024 4:57 PM EDT [facility] [address] [place] [address] Mammography Report Signed Patient: Aaliyah Brennan I MR#: [id number] : 1945 Acct:[id number] Age/Sex: 78 / F ADM Date: 11/08/24 Loc: [facility] Attending Dr: Sarai Trejo MD Ordering Physician: Sarai Trejo MD Results: 1Negative Date of Service: 11/08/24 Follow Up: 1 Year From Orig inal Mammogram Procedure(s): MM tomosynthesis screening BI Accession Number(s): [id number] cc: Sarai Trejo MD EXAMINATION: MM SCREENING [...] 11/09/24 1654 DD/ 0950 TD/TT: 11/08/24 1015 Assistant Wrestling Coach: Procedure Note Donotuseinterpreter, Image - 11/09/2024 [facility] [address] [place] [address] Mammography Report Signed Patient: Aaliyah Brennan IMR#: [id number] : 5Acct:[id number] Age/Sex: 78 / FADM Date: 11/08/24 Loc: HO.MAMMO Attending Dr: Sarai Trejo MD Ordering Physician: Sarai Trejo MDResults: 1Negative Date of Service: 11/08/24Follow Up: 1 Year From Orig inal Mammogram Procedure(s): MM tomosynthesis screening BI Accession Number(s): [id number] cc: Sarai Trejo MD EXAMINATION: MM SCREENING [...] 11/09/24 1654 DD/ 0950 TD/TT: 11/08/24 1015 Assistant Wrestling Coach: Sarai Trejo MD IM BI PROCEDURES Final Result * (ABNORMAL) Lipid Panel with Reflex to Direct LDL (09/21/2024 11:13 AM EDT) Triglycerides 127 <150 mg/dL [facility] Comment:Desirable Triglyceri de: less than 150 mg/dLBorderline High Triglyceride 150-199 mg/dLHigh Triglyceride: 200-499 mg/dLVery High Triglyceride: greater than or equal to 5OO mg/dL Cholesterol 147 <200 mg/dL [facility] Comment:Desirable Cholestero l: less than 200 mg/dLBorderline High Cholesterol: 200-239 mg/dLHigh Cholesterol: greater than 239 mg/dL LDL Cholesterol Calculated 83 <100 mg/dL [facility] Comment:Desirable LDL: less than 100 mg/dLNear Optimal/Above Optimal LDL: 110- 129 mg/dLBorderline High LDL: 130-159 mg/dLHigh LDL: 160-189 mg/dLVery High LDL: greater than or equal to 190 mg/dL HDL Cholesterol 39(L) >40 mg/dL [facility] Comment:Desirable HDL: great er than 40 mg/dL Note: This HDL assay may give artificially low results in patients with liver disease. Blood 09/21/2024 11:1 3 AM EDT 09/21/2024 1:09 PM EDT us Sarai Trejo MD LAB BLOOD ORDERABLES Final Resul t Performing Organization Address [facility] Co de Phone Number [facility] [address] [place] [phone] * Albumin, Random Urine W/Creatinine (09/21/2024 11:13 AM EDT) Creatinine, Urine 93.27 mg/dL [facility] Microalbumin Urine 13.0 mg/L [facility] Microalbum Creatinine Ratio Ur 13.9 <30 ug/mg cr [facility] Comment:Albumin/Creatinine R atio Reference Ranges: Normal: < 30 ug/mg creatinine Microalbuminuria: 30 - 300 ug/mg creatinineClinical Albuminuria: > 300 ug/mg creatinine Urine 09/21/2024 11:1 3 AM EDT 09/21/2024 12:58 PM EDT us Sarai Trejo MD LAB URINE ORDERABLES Final Resul t Performing Organization Address [facility]/ZIP Co de Phone Number [facility] [address] [place] [address] [phone] * Diabetes Eye Exam (10/07/2023) Eye Exam Normal Normal us Historical Provider HEALTH MAINTENANCE Final Result from Last 3 Months or Most Recently Relevant to Health Maintenance Insurance Care Teams Template Cutter Relationship Specialty Start Date End Date Sarai Trejo MD [address] [place] [address] PCP - General Family Medicine 03/22/18
--- OUTSIDE RECORDS SUMMARY | 2025-01-17 13:02 | XMS_ITS | Encounter Summary ---
Author Organization [employer] Address [address] [facility] [address] [place] [address] Care Team Providers Care Auto Haulaway Driver Name Role Phone Sarai Trejo MD Primary Care Provider [phone] Encounter Details Date Type Department Care Team ([facility] st Contact Info) Description 01/11/2024 Orders Only [facility] MEDICINE [address] [place], [place] [phone] Sarai Trejo MD [address] [place], [place] [phone] Social History Tobacco Use Types Packs/Day Years [...] Description 02/14/2025 10:15 AM EST Office Visit [facility] ADULT DENTAL 230 [place] [address] Shira García documented as of this encounter [...] documented as of this encounter Care Teams Auto Haulaway Driver Relationship Specialty Start Date End Date Sarai Trejo MD [address] [place] [address] PCP - General Family Medicine 03/22/18 documented as of this encounter
--- OUTSIDE RECORDS SUMMARY | 2025-01-17 13:02 | XMS_ITS | Encounter Summary ---
Author Organization [employer] Address [address] [place] [address] Care Team Providers Care Section Supervisor Name Role Phone Sarai Trejo MD Primary Care Provider [phone] Encounter Details Date Type Department Care Team ([facility] st Contact Info) Description 03/09/2024 Abstract [facility] MEDICINE [address] [place], [place] [phone] [place] Social History Tobacco Use [...] Description 02/14/2025 10:15 AM EST Office Visit [facility] ADULT DENTAL [address] [place] [address] Shira García documented as of this encounter [...] encounter Results * Diabetes Eye Exam (10/07/2023) Pathologist [facility] Eye Exam Normal Normal Historical Provider HEALTH MAINTENANCE Final Result documented in this encounter Visit Diagnoses Not on filedocumented in this encounter Additional Health Concerns Assessment Noted Time PHQ-9 Depression Total Score: 0 08/12/19 24 11:13 AM EDT documented as of this encounter Care Teams Section Supervisor Relationship Specialty Start Date End Date Sarai Trejo MD [address] [place] [address] PCP - General Family Medicine 03/22/18 documented as of this encounter
--- OUTSIDE RECORDS SUMMARY | 2025-01-17 13:02 | XMS_ITS | Encounter Summary ---
Author Organization [facility] Address [address] [facility] [address] [place] [phone] Phone Care Team Providers Care Arabic Translator Name Role Phone Huey Herrera DO Primary Care Provider [phone] Sarai Trejo MD Primary Care Provider [phone] Sarai Trejo MD Primary Care Provider Encounter Details Date Type Department Care Team (Late st Contact Info) Description 07/24/2020 Procedure [facility] [address] [place] [address] Social History Tobacco Use Types Packs/Day Years [...] AM EDT Office Visit [facility] [address] [place] [address] Zach Guzmán DO [address] [place] [address] documented as of this encounter Visit Diagnoses Not on filedocumented in this encounter Care Teams Arabic Translator Relationship Specialty Start Date End Date Huey Herrera DO [address] [place] [phone] PCP - General Cardiology 07/25/20 06/05/24 Sarai Trejo MD [address] [place] [address] PCP - General 07/24/20 07/24/20 Sarai Trejo MD 230 [place] [address] PCP - General Family Medicine 06/06/24 documented as of this encounter Additional Source Comments The information contained in this document represents components of the legal health record. It is not the complete legal health record.[facility]
--- OUTSIDE RECORDS SUMMARY | 2025-01-17 13:02 | XMS_ITS | Encounter Summary ---
Author Organization [employer] Address [address] 7[address] [place] [address] Care Team Providers Care Silverware Cleaner Name Role Phone Sarai Trejo MD Primary Care Provider [phone] Reason for Visit * Reason Onset Date Comments Medication Question 12/19/2024 Encounter Details Date Type Department Care Team ([facility] st Contact Info) Description 12/19/2024 Telephone [facility] MEDICINE [address] [place], [place] [phone] Sarai Trejo MD [address] [place], [place] [phone] Medication Question Social History Tobacco Use Types Packs/Day Years [...] encounter Miscellaneous Notes * Telephone Encounter - John Paul Mahmood - 12/19/2024 11:36 AM EDT Pt reports was seen on 12/11 and provider was to prescribe antifungal cream for her foot * Telephone Encounter - Chevy Morton - 12/19/2024 11:15 AM EDT Tc from pt requesting a new script for Aquanil 1% lotion Contact pt at [phone] documented in this encounter Plan of Treatment Upcoming Encounters Date Type Department Care Team (Late st Contact Info) Description 02/14/2025 10:15 AM EST Office Visit [facility] ADULT DENTAL [address] [place] [address] Shira García documented as of this encounter Goals Goal Patient Goal Type Associated Problems Recent Progress Patient-Stated? Author Blood Pressure < 140/90 Blood Pressure 138/66(2024 10:42 AM EDT) No Yury Bee, Magdalena Hemoglobin A1c < 7 Result Component 7.5( 9:56 AM EDT) No Yury Bee PharmD documented as of this encounter Visit Diagnoses Not on filedocumented in this encounter Additional Health Concerns Assessment Noted Time PHQ-9 Depression Total Score: 0 09/22/19 25 10:26 AM EDT documented as of this encounter Care Teams Silverware Cleaner Relationship Specialty Start Date End Date Sarai Trejo MD [address] [place] [address] PCP - General Family Medicine 03/22/18 documented as of this encounter
--- OUTSIDE RECORDS SUMMARY | 2025-01-17 13:02 | XMS_ITS | Encounter Summary ---
Author Organization [employer] Address [address] [facility] [address] 7[address] [place] [address] Care Team Providers Care Liquified Natural Gas Specialist Name Role Phone Sarai Trejo MD Primary Care Provider [phone] Reason for Visit * Reason Onset Date Comments Reschedule 07/16/2023 Encounter Details Date Type Department Care Team ([facility] st Contact Info) Description 07/16/2023 Telephone [facility] MEDICINE 230 [place], [place] [phone] Sarai Trejo MD [address] [place], [place] [phone] Reschedule Social History Tobacco Use Types Packs/Day [...] the past 12 months, has t he [employer], gas, oil or water company threatened to [...] appt but not to early in the morning,journalists and other writers offer 2 different appts to pt on August but pt doesn't accept them. documented in this encounter Plan of Treatment Upcoming Encounters Date Type Department Care Team (Late st Contact Info) Description 02/14/2025 10:15 AM EST Office Visit [facility] ADULT DENTAL [address] [place] [address] Shira García documented as of this encounter Goals Goal Patient Goal Type Associated Problems Recent Progress Patient-Stated? Author Blood Pressure < 140/90 Blood Pressure 138/66(2024 10:42 AM EDT) No Yury Bee, PharmD Hemoglobin A1c < 7 Result Component 7.5( 9:56 AM EDT) No Yury Bee PharmD documented as of this encounter Visit Diagnoses Not on filedocumented in this encounter Care Teams Liquified Natural Gas Specialist Relationship Specialty Start Date End Date Sarai Trejo MD [address] [place] [address] PCP - General Family Medicine 03/22/18 documented as of this encounter
--- OUTSIDE RECORDS SUMMARY | 2025-01-17 13:02 | XMS_ITS | Encounter Summary ---
Author Organization [employer] Address [address] [facility] 7t [place] [address] Care Team Providers Care Franchise Development Manager Name Role Phone Sarai Trejo MD Primary Care Provider [phone] Reason for Visit * Reason Onset Date Comments HDF 07/03/2022 Encounter Details Date Type Department Care Team ([facility] st Contact Info) Description 07/03/2022 Telephone [facility] MEDICINE 230 [place], [place] [phone] Sarai Trejo MD [address] [place], [place] [phone] HDF Social History Tobacco Use Types Packs/Day [...] F/U (no symptoms) Patient hospitalized at [facility]. Patient was admitted on 06/30/2022 and discharged on 07/02/2022 . The patient was diagnosed with Pulmonary. Patient advised will forward to [facility] Clinical Coordinators for follow up and appointment scheduling. Please contact pt at [phone] marshallese Speaker documented in this encounter Plan of Treatment Upcoming Encounters Date Type Department Care Team (Late st Contact Info) Description 02/14/2025 10:15 AM EST Office Visit [facility] ADULT DENTAL [address] [place] [address] Shira García documented as of this encounter Visit Diagnoses Not on filedocumented in this encounter Care Teams Franchise Development Manager Relationship Specialty Start Date End Date Sarai Trejo MD [address] [place] [address] PCP - General Family Medicine 03/22/18 documented as of this encounter
--- OUTSIDE RECORDS SUMMARY | 2025-01-17 13:02 | XMS_ITS | Encounter Summary ---
Author Organization [employer] Address [address] [facility] [address] 7t [place] [address] Care Team Providers Care Hardwood Finisher Name Role Phone Sarai Trejo MD Primary Care Provider [phone] Encounter Details Date Type Department Care Team ([facility] st Contact Info) Description 04/20/2023 Orders Only [facility] MEDICINE [address] [place], [place] [phone] Sarai Trejo MD 230 [place], [place] [phone] Social History Tobacco Use Types Packs/Day Years [...] Description 02/14/2025 10:15 AM EST Office Visit [facility] ADULT DENTAL [address] [place] [address] Shira García documented as of this encounter Goals Goal Patient Goal Type Associated Problems Recent Progress Patient-Stated? Author Blood Pressure < 140/90 Blood Pressure 138/66(2024 10:42 AM EDT) No Yury Bee, PharmD Hemoglobin A1c < 7 Result Component 7.5( 9:56 AM EDT) No Yury Bee PharmD documented as of this encounter Visit Diagnoses Not on filedocumented in this encounter Care Teams Hardwood Finisher Relationship Specialty Start Date End Date Sarai Trejo MD [address] [place] [address] PCP - General Family Medicine 03/22/18 documented as of this encounter
--- OUTSIDE RECORDS SUMMARY | 2025-01-17 13:02 | XMS_ITS | Encounter Summary ---
Author Organization [employer] Address [address] [facility] [address] 7[address] [place] [address] Care Team Providers Care Digester Cook Name Role Phone Sarai Trejo MD Primary Care Provider [phone] Reason for Visit * Reason Onset Date Comments Med Refill 05/17/2023 Encounter Details Date Type Department Care Team ([facility] st Contact Info) Description 05/17/2023 Telephone [facility] MEDICINE [address] [place], [place] [phone] Sarai Trejo MD [address] [place], [place] [phone] Med Refill Social History Tobacco Use Types [...] the past 12 months, has t he [employer], gas, oil or water company threatened to [...] 11:33 AM EST Magnesium was sent to [facility] on 04/20/23 #45 with 1 [...] 500 MG tablet To be sent to: [facility] - [place], [place] - [address] [facility] documented in this encounter Plan of Treatment Upcoming Encounters Date Type Department Care Team (Late st Contact Info) Description 02/14/2025 10:15 AM EST Office Visit [facility] ADULT DENTAL [address] [place] [address] Shira García documented as of this encounter Goals Goal Patient Goal Type Associated Problems Recent Progress Patient-Stated? Author Blood Pressure < 140/90 Blood Pressure 138/66(2024 10:42 AM EDT) No Yury Bee, PharmRosy Hemoglobin A1c < 7 Result Component 7.5( 9:56 AM EDT) No Yury Bee, Magdalena documented as of this encounter Visit Diagnoses Not on filedocumented in this encounter Care Teams Digester Cook Relationship Specialty Start Date End Date Sarai Trejo MD [address] [place] [phone] PCP - General Family Medicine 03/22/18 documented as of this encounter
--- OUTSIDE RECORDS SUMMARY | 2025-01-17 13:02 | XMS_ITS | Encounter Summary ---
Author Organization [employer] Address [address] [facility] [address] 7[address] [place] [address] Care Team Providers Care Issue Clerk Name Role Phone Sarai Trejo MD Primary Care Provider [phone] Encounter Details Date Type Department Care Team (Late st Contact Info) Description 06/03/2022 Orders Only [facility] [address] [place], [place] [phone] Sona Manzo LPN Social History Tobacco Use [...] 02/14/2025 10:15 AM EST Office Visit [facility] ADULT DENTAL 230 [place] [address] Shira García documented as of this encounter Visit Diagnoses Not on filedocumented in this encounter Care Teams Issue Clerk Relationship Specialty Start Date End Date Sarai Trejo MD [address] [place], [place] [phone] PCP - General Family Medicine 03/22/18 documented as of this encounter
--- OUTSIDE RECORDS SUMMARY | 2025-01-17 13:02 | XMS_ITS | Encounter Summary ---
Author Organization [employer] Address [address] [facility] [address] 7[address] [place] [address] Care Team Providers Care Building Mover Name Role Phone Sarai Trejo MD Primary Care Provider [phone] Encounter Details Date Type Department Care Team (Late st Contact Info) Description 04/30/2022 Orders Only [facility] [address] [place], [place] [phone] Sona Manzo LPN Social History Tobacco Use [...] Description 02/14/2025 10:15 AM EST Office Visit [facility] ADULT DENTAL [address] [place] [address] Shira García documented as of this encounter Visit Diagnoses Not on filedocumented in this encounter Care Teams Building Mover Relationship Specialty Start Date End Date Sarai Trejo MD [address] [place], [place] [phone] PCP - General Family Medicine 03/22/18 documented as of this encounter
--- OUTSIDE RECORDS SUMMARY | 2025-01-17 13:02 | XMS_ITS | Encounter Summary ---
Author Organization [employer] Address [address] [facility] [address] 7t [place] [address] Care Team Providers Care Support Services Coordinator Name Role Phone Sarai Trejo MD Primary Care Provider [phone] Encounter Details Date Type Department Care Team ([facility] st Contact Info) Description 01/14/2023 Orders Only [facility] MEDICINE [address] [place], [place] [phone] Kacie Rojas MD [address] [place], [place] [phone] Hypercalcemia (Primary Dx) Social History Tobacco Use [...] Description 02/14/2025 10:15 AM EST Office Visit [facility] ADULT DENTAL [address] [place] [address] Shira García Scheduled Orders Name Type Priority [...] Bilirubin, Total 0.8 0.0 - 1.0 mg/dL [facility] Bilirubin, Direct 0.2 0.0 - 0.5 mg/dL [facility] Aspartate Amino Transferase 29 5 - 31 U/L [facility] Alanine Aminotransferase 23 0 - 31 U/L [facility] Total Protein 8.0 6.5 - 8.0 g/dL [facility] Albumin Level 4.4 3.5 - 5.0 g/dL [facility] Alkaline Phosphatase 71 39 - 117 U/L [facility] Blood Venous blood specimen / Unknown 01/27/2023 11:57 AM EST 01/27/2023 11:59 AM EST Kacie Rojas MD LAB BLOOD ORDERABLES Final Result Performing Organization Address [facility] Co de Phone Number [facility] [address] [place] [phone] * Vitamin D, 25-Hydroxy, Total, Immunoassay (01/27/2023 11:57 AM EST) Vitamin D 25-OH Total 33.2 >30 ng/mL [facility] Comment:Health Based Referen ce Values*< 20 ng/mL Veytqnzdo04-72 ng/mL Insufficient> 30 ng/mL Sufficient*Hanna GRANT. N [...] BLOOD ORDERABLES Final Result Performing Organization Address [facility] Co de Phone Number [facility] [address] [place] [phone] * (ABNORMAL) Calcium (01/27/2023 11:57 AM EST) Calcium 10.7(H) 8.4 - 10.2 mg/dL [facility] Blood Venous blood specimen / Unknown 01/27/2023 11:57 AM EST 01/27/2023 11:59 AM EST Kacie Rojas MD LAB BLOOD ORDERABLES Final Result Performing Organization Address [facility]/ZIP Co de Phone Number [facility] [address] [place] [phone] * (ABNORMAL) PTH, Intact Without Calcium (01/27/2023 11:57 AM EST) PTHI 11(A) 16 - 77 pg/mL [facility] Comment:Interpretive Guide I ntact PTH Calcium -------Normal Parathyroid Normal NormalHypoparathyroidism Low or Low Normal LowHyperparathyroidism Primary Normal or High High Secondary High Normal or Low Tertiary High HighNon-Parathyroid Hypercalcemia Low or Low Normal High Calcium (PTHI) 10.7(A) 8.6 - 10.4 mg/dL [facility] Comment:THIS TEST WAS PERFOR MED AT:[address] [phone] ROSARIO MD Blood Venous blood specimen / Unknown 01/27/2023 11:57 AM EST 01/27/2023 11:59 AM EST Kacie Rojas MD LAB BLOOD ORDERABLES Final Result Performing Organization Address [facility]/ZIP Co de Phone Number [facility] [address] [place] [phone] documented in this encounter Visit Diagnoses Diagnosis Hypercalcemia- Primary documented in this encounter Care Teams Support Services Coordinator Relationship Specialty Start Date End Date Sakurai, Sarai, MD [address] [place] [address] PCP - General Family Medicine 03/22/18 documented as of this encounter
--- OUTSIDE RECORDS SUMMARY | 2025-01-17 13:02 | XMS_ITS | Patient Health Record ---
Author Organization [facility] Address [address] [place] [address] Care Team Providers Care Moose Hunter Name Role Phone Neil DOTY, Sarai Primary Care Provider Sergey Mathews Unavailable [phone] Allergies No Known Allergies Reason For Referral [...] mas de 8 tabletas en 24 ho Oral; Duration: 3 Active Flovent HFA 220 MCG/ACT 1 puff Inhalatio n Twice a day PRN Active amLODIPine Besylate 2.5 MG 1 tablet Oral ly Once a day; Duration: 30 day(s) Active Magnesium Oxide 400 MG TAKE 1 TABLET BY MOUTH TWICE DAILY Oral; Duration: 15 Active metFORMIN HCl 1000 MG 1 tablet with meal s Orally Twice a day Active Cholestyramine Activ e Metoprolol Tartrate 25 MG 1 tablet with food Orally Twice a day; Duration: 30 day(s) Active Atorvastatin Calcium 40 MG 1 tablet Oral ly Once a day Active Lidoderm 5 % 1 patch on the right upper abdomen for the pain and then remove after 12 hours Externally Once a day; Duration: 30 days 03/25/2023 Active Levothyroxine Sodium 88 MCG 1 tablet Ora lly Once a day Active Immunizations Vaccine Route Administration Date Status Comme nts Influenza Unknown 01/20/2018 Administered Influenza Unknown 12/20/2018 Administered Influenza Unknown 01/03/2020 Administered Problems Problem Type SNOMED Code ICD Code Onset Dates Problem Status W/U Status Risk Notes Problem Irritable bowel syndrome (43476671) Irritable bowel syndrome (K58.9) Active confirmed Problem Screening for malignant neoplasm of colon (875283625) Encounter for screening for malignant neoplasm of colon (Z12.11) Active confirmed Problem Irritable bowel syndrome (42344201) Irritable bowel syndrome without diarrhea (K58.9) Active confirmed Problem Family History of Cancer of Colon (Situation) (867259699) Family history of colon cancer (Z80.0) Active confirmed Problem Right upper quadrant pain (847924624) Abdominal pain, right upper quadrant (R10.11) Active confirmed Problem CT of abdomen abnormal (844815157914585 07) Abnormal CT of the abdomen (R93.5) Active confirmed Problem Irritable bowel syndrome (25439685) Irritable bowel syndrome with both constipation and diarrhea (K58.2) Active confirmed Problem Right upper quadrant pain (029822417) RUQ pain (R10.11) Active confirmed Problem Acute pancreatitis (701723913) Acute biliary pancreatitis without infection or necrosis (K85.10) Active confirmed Problem Right upper quadrant pain (668211092) Abdominal wall pain in right upper quadrant (R10.11) Active confirmed Plan Of Treatment Pending Test Test Name Order Date BUN 03/27/2015 CREATININE 03/27/2015 LIVER PROFILE 03/27/2015 Future Test Test Name Order Date COLONOSCOPY 07/10/2014 COLONOSCOPY 04/17/2020 Insurance Providers Payer Name Payer Address Payer Phone Subscriber Number Group Number Insured Name Patient Relationship to Insured Coverage Start Date Coverage End Date [facility] [address] [address] [place] [address] [id number] JAYLEN RONDON Self - patient is the insured Medical (General) History Medical History History ICD Code Colonoscopies in 2003 and 03-28-2009--both negative for polyps-did have diverticulosis and hemorrhoids Osteoporosis Back pain Depression Denies [place],CVA,renal disease COPD NIDDM Neuropathy GERD Hypothroidism Negative [...]
--- OUTSIDE RECORDS SUMMARY | 2025-01-17 13:02 | XMS_ITS | Encounter Summary ---
Author Organization [employer] Address [address] 7[address] [place] [address] Care Team Providers Care Machine Cutter Name Role Phone Sarai Trejo MD Primary Care Provider [phone] Reason for Visit * Reason Onset Date Comments Reschedule 03/17/2023 Encounter Details Date Type Department Care Team ([facility] st Contact Info) Description 03/17/2023 Telephone [facility] [address] [place], [place] [phone] Sarai Trejo MD 230 [place], [place] [phone] Reschedule Social History Tobacco Use Types Packs/Day [...] the past 12 months, has t he [employer], gas, oil or water company threatened to [...] Description 02/14/2025 10:15 AM EST Office Visit [facility] ADULT D[facility] [address] [place] [address] Shira García documented as of this encounter Goals Goal Patient Goal Type Associated Problems Recent Progress Patient-Stated? Author Blood Pressure < 140/90 Blood Pressure 138/66(2024 10:42 AM EDT) No Yury Bee, Magdalena Hemoglobin A1c < 7 Result Component 7.5( 9:56 AM EDT) No Yury Bee PharmD documented as of this encounter Visit Diagnoses Not on filedocumented in this encounter Care Teams Machine Cutter Relationship Specialty Start Date End Date Sarai Trejo MD [address] [place] [address] PCP - General Family Medicine 03/22/18 documented as of this encounter
--- OUTSIDE RECORDS SUMMARY | 2025-01-17 13:02 | XMS_ITS | Encounter Summary ---
Author Organization [employer] Address [address] 7[address] [place] [address] Care Team Providers Care Consumer Credit Counselor Name Role Phone Sarai Trejo MD Primary Care Provider Reason for Visit * Reason Onset Date Comments Medication 04/16/2023 Encounter Details Date Type Department Care Team ([facility] st Contact Info) Description 04/16/2023 Telephone [facility] 230 [place], [place] [phone] Sarai Trejo MD 230 [place], [place] [phone] Medication Social History Tobacco Use Types Packs/Day [...] Any questions you can contact pt at [phone]. documented in this encounter Plan of Treatment Upcoming Encounters Date Type Department Care Team (Late st Contact Info) Description 02/14/2025 10:15 AM EST Office Visit [facility] ADULT [facility] [address] [place] [address] Shira García documented as of this encounter Goals Goal Patient Goal Type Associated Problems Recent Progress Patient-Stated? Author Blood Pressure < 140/90 Blood Pressure 138/66(2024 10:42 AM EDT) No Yury Bee, PharmD Hemoglobin A1c < 7 Result Component 7.5( 9:56 AM EDT) No Yury Bee, Magdaelna documented as of this encounter Visit Diagnoses Not on filedocumented in this encounter Care Teams Consumer Credit Counselor Relationship Specialty Start Date End Date Sarai Trejo MD 230 [place] [address] PCP - General Family Medicine 03/22/18 documented as of this encounter
--- OUTSIDE RECORDS SUMMARY | 2025-01-17 13:02 | XMS_ITS | Encounter Summary ---
Author Organization [employer] Address [address] 7t [place] [address] Care Team Providers Care Live In Housekeeper Nanny Name Role Phone Sarai Trejo MD Primary Care Provider [phone] Encounter Details Date Type Department Care Team ([facility] st Contact Info) Description 09/05/2024 Telephone [facility] 230 [place], [place] [phone] Sarai Trejo MD 230 [place], [place] [phone] Social History Tobacco Use Types Packs/Day Years [...] 10:15 AM EST Office Visit [facility] ADULT DENTAL [address] [place] [address] Shira García documented as of this encounter [...] documented as of this encounter Care Teams Live In Housekeeper Nanny Relationship Specialty Start Date End Date Sarai Trejo MD 230 [place] [address] PCP - General Family Medicine 03/22/18 documented as of this encounter
--- OUTSIDE RECORDS SUMMARY | 2025-01-17 13:02 | XMS_ITS | Encounter Summary ---
Author Organization [employer] Address [address] 7t [place] [address] Care Team Providers Care E Commerce Project Manager Name Role Phone Sarai Trejo MD Primary Care Provider [phone] Reason for Visit * Reason Onset Date Comments PT1 08/20/2023 Encounter Details Date Type Department Care Team ([facility] st Contact Info) Description 08/20/2023 Telephone [facility] MEDICINE 230 [place], [place] [phone] Sarai Trejo MD 230 [place], [place] [phone] PT1 Social History Tobacco Use Types Packs/Day [...] Y/N: Yes Provider name or facility name: [facility] Facility Address: [address] [place] [address] Escort needed: Y/N: No Do you have a wheelchair: Y/N: No If yes- Manual or electric: Visits: 3-4 times a month Pt has an appt for 08/26/23 @1PM documented in this encounter Plan of Treatment Upcoming Encounters Date Type Department Care Team ([facility] st Contact Info) Description 02/14/2025 10:15 AM EST Office Visit [facility] ADULT D[facility]AL 230 [place] [address] Shira García documented as of this encounter [...] documented as of this encounter Care Teams E Commerce Project Manager Relationship Specialty Start Date End Date Sarai Trejo MD [address] [place] [address] PCP - General Family Medicine 03/22/18 documented as of this encounter
--- OUTSIDE RECORDS SUMMARY | 2025-01-17 13:02 | XMS_ITS | Encounter Summary ---
Author Organization [employer] Address [address] 7t [place] [address] Care Team Providers Care Aircraft Cleaner Name Role Phone Sarai Trejo MD Primary Care Provider [phone] Encounter Details Date Type Department Care Team (Late st Contact Info) Description 07/03/2022 Orders Only [facility] 230 [place], [place] [phone] Sarai Trejo MD [address] [place], [place] [phone] Social History Tobacco Use Types Packs/Day Years [...] Description 02/14/2025 10:15 AM EST Office Visit [facility] ADULT DENTAL 230 [place], [place] [phone] Shira García documented as of this encounter Visit Diagnoses Not on filedocumented in this encounter Care Teams Aircraft Cleaner Relationship Specialty Start Date End Date Sarai Trejo MD [address] [place] [address] PCP - General Family Medicine 03/22/18 documented as of this encounter
--- OUTSIDE RECORDS SUMMARY | 2025-01-17 13:03 | XMS_ITS | Encounter Summary ---
Author Organization [facility] Address [address] [place] [address] Phone Care Team Providers Care Migratory Worker Name Role Phone JavierHuey Primary Care Provider [phone] Sarai Trejo MD Primary Care Provider [phone] Sarai Trejo MD Primary Care Provider [phone] Encounter Details Date Type Department Care Team (Late st Contact Info) Description 08/12/2017 Ancillary Orders [facility] [address] [place] [address] [place] [address] Anjana Maya MD 230 [facility] 1 [place] [address] Palpitations Social History Tobacco Use Types Packs/Day [...] 11:30 AM EDT Office Visit [facility] [address] [place] [address] [place] [address] Zach Guzmán DO [address] [place] [address] documented as of this encounter Results * [...] Palpitations documented in this encounter Care Teams Migratory Worker Relationship Specialty Start Date End Date Huey Herrera DO [address] [place] [address] PCP - General Cardiology 07/25/20 06/05/24 Sarai Trejo MD 230 [place] [address] PCP - General 07/24/20 07/24/20 Sarai Trejo MD 230 [place] [address] PCP - General Family Medicine 06/06/24 documented as of this encounter Additional Source Comments The information contained in this document represents components of the legal health record. It is not the complete legal health record.[facility]
--- OUTSIDE RECORDS SUMMARY | 2025-01-17 13:03 | XMS_ITS | Encounter Summary ---
Author Organization [facility] Address [address] [place] [address] Phone Care Team Providers Care Dump Truck Driver Name Role Phone Huey Herrera DO Primary Care Provider [phone] Sarai Trejo MD Primary Care Provider [phone] Sarai Trejo MD Primary Care Provider [phone] Encounter Details Date Type Department Care Team (Late st Contact Info) Description 07/24/2020 Ancillary Orders Non-Invasive Cardiology [address] [place] [address] Mary Davis MD [address] [place] [phone] [email or web address] Palpitations Social History Tobacco Use [...] AM EDT Office Visit [facility] [address] [place] [address] Zach [place]zmán [place] [address] [email or web address] documented as of this encounter Visit Diagnoses Diagnosis Palpitations documented in this encounter Care Teams Dump Truck Driver Relationship Specialty Start Date End Date Huey Herrera DO [address] [place] [address] PCP - General Cardiology 07/25/20 06/05/24 Sarai Trejo MD [facility] [place] [address] PCP - General 07/24/20 07/24/20 [place] [address] PCP - General Family Medicine 06/06/24 documented as of this encounter Additional Source Comments The information contained in this document represents components of the legal health record. It is not the complete legal health record.[facility]
--- OUTSIDE RECORDS SUMMARY | 2025-01-17 13:03 | XMS_ITS | Encounter Summary ---
Author Organization [employer] Address [address] 7t [place] [address] Care Team Providers Care Photographer Still Name Role Phone Sarai Trejo MD Primary Care Provider [phone] Encounter Details Date Type Department Care Team ([facility] st Contact Info) Description 02/26/2023 Orders Only [facility] MEDICINE 230 [place], [place] [phone] Sarai Trejo MD 230 [place], [place] [phone] Social History Tobacco Use Types Packs/Day Years [...] Description 02/14/2025 10:15 AM EST Office Visit [facility] ADULT DENTAL 230 [place] [address] Shira García documented as of this encounter Goals Goal Patient Goal Type Associated Problems Recent Progress Patient-Stated? Author Blood Pressure < 140/90 Blood Pressure 138/66(2024 10:42 AM EDT) No Yury Bee, PharmD Hemoglobin A1c < 7 Result Component 7.5( 9:56 AM EDT) No Yury Bee PharmD documented as of this encounter Visit Diagnoses Not on filedocumented in this encounter Care Teams Photographer Still Relationship Specialty Start Date End Date Sarai Trejo MD 230 [place] [address] PCP - General Family Medicine 03/22/18 documented as of this encounter
--- OUTSIDE RECORDS SUMMARY | 2025-01-17 13:03 | XMS_ITS | Encounter Summary ---
Author Organization [facility] Address [address] [place] [address] Phone Care Team Providers Care Automotive Parts Counter Associate Name Role Phone Huey Herrera DO Primary Care Provider [phone] Sarai Trejo MD Primary Care Provider [phone] Sarai Trejo MD Primary Care Provider Encounter Details Date Type Department Care Team (Late st Contact Info) Description 07/24/2020 Ancillary Orders [facility] [address] [place] [address] Huey Herrera DO [address] [place] [address] Palpitations Social History Tobacco Use Types Packs/Day [...] AM EDT Office Visit [facility] [address] [place] [address] Zach Guzmán DO 22 [place] [address] documented as of this encounter Results * [...] Palpitations documented in this encounter Care Teams Automotive Parts Counter Associate Relationship Specialty Start Date End Date Huey Herrera DO [address] [place] [address] PCP - General Cardiology 07/25/20 06/05/24 Sarai Trejo MD [address] [place] [address] PCP - General 07/24/20 07/24/20 Sarai Trejo MD [address] [place] [address] PCP - General Family Medicine 06/06/24 documented as of this encounter Additional Source Comments The information contained in this document represents components of the legal health record. It is not the complete legal health record.[facility]
--- OUTSIDE RECORDS SUMMARY | 2025-01-17 13:03 | XMS_ITS | Encounter Summary ---
Author Organization [employer] Address [address] 7t [place] [address] Care Team Providers Care Inking Machine Tender Name Role Phone Sarai Trejo MD Primary Care Provider [phone] Encounter Details Date Type Department Care Team (Late st Contact Info) Description 03/02/2023 Orders Only [facility] 230 [place], [place] [phone] Sarai Trejo MD 230 [place], [place] [phone] Abdominal pain, unspecified abdominal location (Primary Dx); [...] the past 12 months, has t he [employer], gas, oil or water company threatened to [...] Description 02/14/2025 10:15 AM EST Office Visit [facility] 230 [place] [address] Shira García documented as of this encounter [...] type documented in this encounter Care Teams Inking Machine Tender Relationship Specialty Start Date End Date Sarai Trejo MD 230 [place] [address] PCP - General Family Medicine 03/22/18 documented as of this encounter
--- OUTSIDE RECORDS SUMMARY | 2025-01-17 13:03 | XMS_ITS | Encounter Summary ---
Author Organization [employer] Address [address] 7t [place] [address] Care Team Providers Care Hot Wort Settler Name Role Phone Sarai Trejo MD Primary Care Provider [phone] Reason for Visit * Reason Comments Med Refill Encounter Details Date Type Department Care Team (Late st Contact Info) Description 03/28/2023 Refill [facility] 230 [place], [place] [phone] Sarai Trejo MD 230 [place], [place] [phone] Pain Social History Tobacco Use Types Packs/Day [...] Description 02/14/2025 10:15 AM EST Office Visit [facility]ULT [facility] 230 [place] [address] Shira García documented as of this encounter Goals Goal Patient Goal Type Associated Problems Recent Progress Patient-Stated? Author Blood Pressure < 140/90 Blood Pressure 138/66(2024 10:42 AM EDT) No Yury Bee, PharmD Hemoglobin A1c < 7 Result Component 7.5( 9:56 AM EDT) No Yury Bee, Magdalena documented as of this encounter Visit Diagnoses Diagnosis Pain Generalized pain documented in this encounter Care Teams Hot Wort Settler Relationship Specialty Start Date End Date Sarai Trejo MD 230 [place] [address] PCP - General Family Medicine 03/22/18 documented as of this encounter
--- OUTSIDE RECORDS SUMMARY | 2025-01-17 13:03 | XMS_ITS | Encounter Summary ---
Author Organization [facility] Address [address] [place] [address] Phone Care Team Providers Care Health Care Technician Name Role Phone Huey Herrera DO Primary Care Provider [phone] Sarai Trejo MD Primary Care Provider [phone] Sarai Trejo MD Primary Care Provider [phone] Encounter Details Date Type Department Care Team (Late st Contact Info) Description 08/12/2017 Ancillary [facility] [address] [place] [address] Anjana Maya MD 230 [facility] 1 [place] [address] Social History Tobacco Use Types Packs/Day Years [...] 11:30 AM EDT Office Visit [facility] [place] [address] Zach Guzmán [place] [address] documented as of this encounter Visit Diagnoses Not on filedocumented in this encounter Care Teams Health Care Technician Relationship Specialty Start Date End Date Huey Herrera DO [address] [place] [address] PCP - General Cardiology 07/25/20 06/05/24 Sarai Trejo MD 230 [place] [address] PCP - General 07/24/20 07/24/20 Sarai Trejo MD 230 [place] [address] PCP - General Family Medicine 06/06/24 documented as of this encounter Additional Source Comments The information contained in this document represents components of the legal health record. It is not the complete legal health record.[facility]
--- OUTSIDE RECORDS SUMMARY | 2025-01-17 13:03 | XMS_ITS | Encounter Summary ---
Author Organization [facility] Address [address] [place] [address] Phone Care Team Providers Care Public Policy Coordinator Name Role Phone Huey Herrera DO Primary Care Provider [phone] Sarai Trejo MD Primary Care Provider [phone] Sarai Trejo MD Primary Care Provider [phone] Encounter Details Date Type Department Care Team (Late st Contact Info) Description 07/24/2020 Ancillary Orders [facility] [address] 3rd Floor, [address] [place] [address] Mary Davis MD [address] [place] [phone] [email or web address] Social History Tobacco Use Types Packs/Day Years [...] AM EDT Office Visit [facility] [address] [place] [address] Zach Guzmán DO [address] [place] [address] [email or web address] documented as of this encounter Visit Diagnoses Not on filedocumented in this encounter Care Teams Public Policy Coordinator Relationship Specialty Start Date End Date Huey Herrera DO [address] [place] [address] PCP - General Cardiology 07/25/20 06/05/24 Sarai Trejo MD [address] [place] [address] PCP - General 07/24/20 07/24/20 Sarai Trejo MD [address] [place] [address] PCP - General Family Medicine 06/06/24 documented as of this encounter Additional Source Comments The information contained in this document represents components of the legal health record. It is not the complete legal health record.[facility]
--- OUTSIDE RECORDS SUMMARY | 2025-01-17 13:03 | XMS_ITS | Encounter Summary ---
Author Organization [employer] Address [address] 7t [place] [address] Care Team Providers Care Handkerchief Maker Name Role Phone Sarai Trejo MD Primary Care Provider [phone] Encounter Details Date Type Department Care Team ([facility] st Contact Info) Description 12/31/2022 Orders Only [facility] 230 [place], [place] [phone] Sarai Trejo MD 230 [place], [place] [phone] Osteoporosis without current pathological fracture, unspecified osteoporosis [...] Description 02/14/2025 10:15 AM EST Office Visit [facility] ADULT DENT[facility] 230 [place] [address] Shira García documented as of this encounter Visit Diagnoses Diagnosis Osteoporosis without current pathological fracture, unspecified osteoporosis type- Primary documented in this encounter Care Teams Handkerchief Maker Relationship Specialty Start Date End Date Sarai Trejo MD 230 [place] [address] PCP - General Family Medicine 03/22/18 documented as of this encounter
--- OUTSIDE RECORDS SUMMARY | 2025-01-17 13:03 | XMS_ITS | Clinical Summary ---
Author Organization 175 [facility] Address [address] [place] [address] Phone Care Team Providers Care Quantitative Analyst Name Role Phone Sarai Trejo MD Primary Care Provider Allergies Active Allergy Reactions Criticality Noted Date [...] day in the morning. 5 Active lancets ([employer] Delica Plus Lancet) 33 gauge USE DIRECTED [...] Description 12/05/2024 11:30 AM EDT Consult Neurosurgery [address] [address] Nelson Johnson MD Cerebral arterial aneurysm (Primary Dx) 10/25/2024 10:32 AM EDT - 10/25/2024 11:59 PM EDT Hospital Encounter [facility] CT Scan [address] [place] [address] Headache disorder Discharge Disposition: Home or Self Care from Last 3 Months Surgical History Surgery Date Site/Laterality Comments HAND SURGERY KNEE SURGERY SHOULDER SURGERY GALLBLADDER SURGERY Medical History Medical History Date Comments Aneurysm (arteriovenous) of coronary vessels Aneurysm ([facility] V24) Diabetes mellitus ([facility] V24, [facility] V28) Hypertension Social History Tobacco Use [...] 12/05/2024 11:34 AM EDT Plan of Treatment Upcoming Encounters Date Type Department Care Team (Late st Contact Info) Description 04/02/2025 3:30 PM EST Office Visit [facility] [address] [facility] [address] [place] [address] Lia Ortega MD [address] [place] [address] Health Maintenance Due Date Last Done Comments Diabetes: Annual Foot Exam 1954 Diabetes: Annual Retina Eye Exam 1954 RSV Immunization Adult Patients (1 - 1-dose 75+ series) 12/14/2019 Cholesterol Screening (Lipid Panel) 12/28/2023 Falls Risk Assessment 12/28/2023 Medicare Annual Wellness Visit 12/28/2023 Osteoporosis [...] Signed Date: 10/30/2024 10:15 ET Workstation ID: [id number] Transcribed By: Self Edit Transcribed Date: 10/30/2024 09:56 ET Narrative 10/30/2024 10:15 AM EDT PROCEDURE: CT angiogram of the neck and [place] of [place] and delayed postcontrast CT of the brain. HISTORY: aneurysm. COMPARISON: CT of the neck dated 06/27/2020. TECHNIQUE: CT angiogram of the neck and [place] of [place] with multiplanar reformats. Delayed postcontrast [...] tortuous but widely patent basilar artery. The military personnel specialist are widely patent. Small caliber P1 segments, [...] PROCEDURE: CT angiogram of the neck and [place] of [place] and delayedpostcontrast CT of the brain. HISTORY: aneurysm. COMPARISON: CT of the neck dated 06/27/2020. TECHNIQUE: CT angiogram of the neck and [place] of [place] with multiplanarreformats. Delayed postcontrast images [...] tortuous but widely patent basilar artery. The military personnel specialist are widelypatent. Small caliber P1 segments, with [...] Signed Date: 10/30/2024 10:15 ET Workstation ID: [id number] Transcribed By: Self Edit Transcribed Date: 10/30/2024 09:56 ET Jacqui L Panasci PA IMG CT PROCEDURES Final Resu lt from Last 3 Months Insurance [employer] MEDICARE MEDICAID - [place] Care Teams Quantitative Analyst Relationship Specialty Start Date End Date Sarai Trejo MD [address] [place] [address] PCP - General Family Medicine 08/23/24
== END 2025-01-17 11:13 | disposition home or self-care (01) ==
LOC: HO.HCS 10:31
PROVIDERS: PCP Family Medicine; Visit Provider Internal Medicine Cardiovascular Disease
DX: R06.00 Dyspnea, unspecified (principal); I44.7 Left bundle-branch block, unspecified; I10 Essential (primary) hypertension
CPT/HCPCS: 99214

== ENCOUNTER → 2025-01-17 10:30 | Outpatient (BNVA) | payer OTHER, SELFPAY | PROVIDERS: PCP Family Medicine; Visit Provider Internal Medicine Cardiovascular Disease | DX: I10 Essential (primary) hypertension (principal); I44.7 Left bundle-branch block, unspecified; R06.00 Dyspnea, unspecified | CPT/HCPCS: 99212 ==

== ENCOUNTER 2025-01-22 09:27 | Outpatient (AMB) | payer OTHER, SELFPAY ==
--- OUTSIDE RECORDS SUMMARY | 2024-01-18 11:45 | XMS_ITS | Encounter Summary ---
Author Organization [facility] Address [address] [place] [address] Care Team Providers Care Shuttle Veneering Supervisor Name Role Phone Unavailable Primary Care Provider Unavailabl e Encounter Details Date Type Department Care Team (Late st Contact Info) Description 01/18/2024 12:45 PM EDT Hospital Encounter TH HISTORIC ENCOUNTERS EASTERN CONVERSION ONLY Lia Ortega MD [address] [place] [address] Social History Tobacco Use Types Packs/Day Years Used Date Smoking Tobacco: Never Assessed Comments Unknown Sex and Gender Information Value Date Recorded Sex Assigned at Female 10/23/2024 8:34 PM EDT Legal Sex Female 4:50 AM EST Gender Identity Not on file Sexual Orientation Not on file documented as of this encounter Last Filed Vital Signs Vital Sign Reading Time Taken Comments Blood Pressure 128/71 01/18/2024 1:11 PM EDT Sit ting Left arm Pulse 80 01/18/2024 1:11 PM EDT Temperature - - Respiratory Rate - - Oxygen Saturation - - Inhaled Oxygen Concentration - - Weight - - Height - - Body Mass Index - - documented in this encounter Progress Notes * Lia Ortega MD - 01/18/2024 1:00 PM EDT HPI: Aaliyah Doshi is a 78 y.o. year old female referred to our center by No primary care provider on file. 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 Nuclear stress test / MPI on 11/09/23 showed normal myocardial perfusion, gated LVEF 59%, and no transient ischemic dilatation. . Carpal tunnel syndrome and osteoarthritis in multiple joints. Hx of left TKA. Fall injury on 10/11/23. Headache: Patient presents for evaluation of headache. Symptoms began about 2006, She had rupture aneuyrsm Pcomm s/p 2006 after a Generally, the headaches last about several hours and occur continuously. The headaches do not seem to be related to any time of the day. The headaches are usually pounding and are located in Lt temporal area The patient rates her most severe headaches a 10 on a scale from 1 to 10. Recently, the headaches have been increasing in both severity and frequency. Work attendance or other daily activities are affected by the headaches. Precipitating factors include: loud noises . The headaches are usually she saw floaters . Associated neurologic symptoms: nausea , photophobia , phonophobia . The patient denies dizziness, muscle weakness and numbness of extremities. Home treatment has included acetaminophen, amitriptyline, fioricet, Percocet and toradol injection, darkening the room, resting and sleeping with no improvement. Other history includes: migraine headaches diagnosed in the past. Family history includes migraine headaches in daughter , granddaughter . Hx intracranial aneurysm left PCOM s/p repair in 2006. Previously followed by neurosurgeon, discharged due to stability, unable to resume care due to insurance -Previously followed by neurologist, Dr. Nguyen, last seen in July 2018 -Currently following with neurologist, Dr. Walker, since Dec 2022. Dx post- surgical headache. Rx piroxicam. If no improvement, Dr. Walker is entertaining about trial of indomethacin and Botox. Lastseen by Dr. Walker on 08/26/23. Discontinued piroxicam and neuropathy cream. Rx duloexetine (Cymbalta) 30 mg qhs x 1 week, then [address] Walker has retired and patient requests a referralto a new neurologist.an -Pt has tried amitriptyline, topiramate, verapamil, and per notes she didn't Airmog which were all ineffective as prophylactic medication -Pt has taken tramadol, Fioricet, and Percocet for short-term pain management. -Pt has even tried CBD, and it was ineffective. -Consulted neurologist in Oct 2019, and was recommended to try CGRP. Patient denies any injections -CGRP was ineffective and was discontinued -Piroxicam, neuropathy cream, and duloxetine were prescribed by Dr. Walker. They were discontinuedby the patient due to ineffectiveness. -Pt tried PT for neck pain. Reviewed patient's records she did have multiple CT scan no concerning findings No past medical history on file. Current Outpatient Medications Medication Sig Dispense Refill ??? acetaminophen (TYLENOL EXTRA STRENGTH) 500 MG tablet TAKE 2 TABLETS BY MOUTH EVERY 8 HOURS NEEDED ??? albuterol (Ventolin HFA) 108 (90 Base) MCG/ACT inhaler INHALE 2 PUFFS BY MOUTH EVERY 4 TO 6 HOURS NEEDED FOR DIFFICULTY BREATHING, NO MORE THAN FOUR TIMES DAILY ??? amLODIPine (NORVASC) tablet 5 mg Take 1 tablet (5 mg total) by mouth. ??? aspirin 81 MG EC tablet Take 1 tablet (81 mg total) by mouth every night at bedtime. ??? atorvastatin (LIPITOR) tablet 40 mg Take 1 tablet (40 mg total) by mouth every night at bedtime. ??? cetirizine (ZyrTEC) 5 MG tablet Take 1 tablet (5 mg total) by mouth. ??? fluticasone-salmeterol (ADVAIR) 250-50 MCG/ACT DISKUS INHALE 1 PUFF BY MOUTH TWICE DAILY RINSE MOUTH AFTER USING. ??? magnesium oxide (MAG-OX) 400 MG tablet TAKE 1 TABLET BY MOUTH EVERY OTHER DAY IN THE EVENING ??? metFORMIN (GLUCOPHAGE-XR) ER 24 hr tablet 500 mg TAKE 2 TABLETS BY MOUTH TWICE DAILY IN THE MORNING AND EVENING WITH MEALS ??? metoprolol tartrate (LOPRESSOR) 25 MG tablet Take 1 tablet (25 mg total) by mouth. ??? montelukast (SINGULAIR) 10 MG tablet Take 1 tablet (10 mg total) by mouth every evening. ??? pantoprazole (PROTONIX) 40 MG tablet Take 1 tablet (40 mg total) by mouth daily. ??? repaglinide (PRANDIN) 2 MG tablet Take 1 tablet (2 mg total) by mouth. No current facility-administered medications for this visit. Allergies Allergen Reactions ??? Fish Other reaction(s): white fish ??? Fish Allergy Other reaction(s): white fish ??? Tramadol Social history: Tobacco: No Former smoker 1 pack x 3wks Alcohol No Drug use: No Lives Family history: There is no significant family history of multiple sclerosis, rheumatoid arthritis,type 1 diabetes, lupus, or other autoimmune diseases. Neurologic Exam: BP 128/71 (BP Location: Left arm, Patient Position: Sitting) Pulse 80 Temp 96.7 ??F (35.9 ??C) (Temporal) MS: V oriented to month and year but not day months CN: perrla, Lt eye drooping , VA 20/20 no red desaturation, fundoscopic exam normal bilaterally, V1-3 intact to LT, face symmetric, bilateral SCM/trapezius 5/5, tongue/uvula/palate midline Motor: 4+ /5 in all extremities except lower extremity limited by pain 4 -/5 Sensation: Intact to light touch in all extremities Reflexes: 1+ in bilateral biceps and patellae, toes downgoing bilaterally Cerebellar: FNF intact bilaterally, FFM intact bilaterally Using a rollator to walk unable to assess tandem gait Labs: Imaging: All images were reviewed by me. -Imaging Hx 11/11/19 --CT head: No intracranial hemorrhage or large acute infarction. Chronic encephalomalacic and gliotic changes seen in the left inferior frontal lobe and anterior temporal lobe. --CTA neck: No hemodynamically significant stenosis in the major arteries of the neck. 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 --CTA head: No large vessel occlusion or significant stenosis within the intracranial circulation. Postoperative findings related to pterional craniotomy for aneurysm clipping -Head CT on 12/11/22: No acute intracranial pathology. Postoperative changes, status post prior left parasellar aneurysm clipping. Chronic encephalomalacia in the left frontotemporal lobes. Perceived disproportionate prominence of the lateral and third ventricles relative to the sulcal spaces with a narrow callosal angle and a mildly increased Funez' index. A/P: Aaliyah Doshi is a 78 y.o. 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 Nuclear stress test / MPI on 11/09/23 showed normal myocardial perfusion, gated LVEF 59%, and no transient ischemic dilatation. . Carpal tunnel syndrome and osteoarthritis in multiple joints. Hx of left TKA. Fall injury on 10/11/23. referred to our center by No primary care provider on file. for She does have 30/30 days of migraines that is affecting her quality of life she is unable to go to her grand kids functions she apologized for her attending any family gathering she used to go to congregational she is unable to anymore she was referred to us for migraine headaches patient failed multiple medication for her headaches including amitriptyline, topiramate, verapamil, She doesn't want be on any injections with excluding the CGRP's per notes patient tried ibuprofen she denies trying any injectables Prolonged discussion with the patient called son at work on the phone to discuss a trial of Botox discussed mechanism of action risks and side effects we agreed on sending a pamphlet for her son to review will authorize patient for Botox for chronic migraine headache with failure of multiple medication -Will obtain basic labs and inflammatory marker -Will obtain CT head to review Will consider Ubrelvy abortive after controlling the headache Counseled on avoidance of migraine triggers, particularly sleep deprivation, missed meals, dehydration, certain foods and avoiding excessive caffeine/NSAIDs. -RTC [id number] for follow up The patient and I discussed the clinical picture during today's appointment. Additional time was spent prior to the actual appointment reviewing records, lab values and imaging results and preparing documentation for today's visit. There was also time spent following the in person visit documenting, arranging for further diagnostic testing and follow-up appointments. The entire time spent in thisprocess was greater than 50 minutes. The majority of the actual [id number] visit was spent counseling the patient with respect to the current neurological picture. Lia Ortega MD documented in this encounter Plan of Treatment Upcoming Encounters Date Type Department Care Team (Late st Contact Info) Description 04/02/2025 3:30 PM EST Office Visit [facility] [address] [place] [address] Lia Ortega MD [address] [place] [id number] documented as of this encounter Visit Diagnoses Not on filedocumented in this encounter
--- NOTE | 2025-01-22 09:37 | MHC.OFFVIS ---
Vital Signs 01/22/25 09:38 Height 5 ft 3 in Weight 158 lb 11.725 oz BMI 28.1 BP 112/60 Blood Pressure Location Lt brachial Position Sitting Pulse 87 Pulse Source Pulse Oximeter Pulse Oximetry (%) 95 Oxygen Delivery Method Room Air Intake Visit Reasons: COPD Intake Note: pt is here for follow up and states breathing is good, just dealing with migraines Quality Improvement Consultant Required: No Primary Special Educator: Primary Special Educator offered & declined Allergies white fish Allergy (Intermediate, Uncoded 01/22/25 09:55) body swelling, redness Medication List - Last Reconciled 01/22/25 by Kulwant Terrell MD acetaminophen 1,000 mg PO Q8H PRN albuterol sulfate 1 amp inhalation Q4-6H PRN albuterol sulfate 90 mcg/actuation (ProAir HFA) 2 puffs inhalation Q4-6H PRN amlodipine 5 mg PO QAM aspirin 81 mg PO DAILY atorvastatin 40 mg PO BEDTIME blood sugar diagnostic ([employer] Pharm[employer]such Ultra Test strips) As directed cetirizine 5 mg PO QAM cholecalciferol (vitamin D3) 25 mcg PO QAM duloxetine mg PO fluticasone propion-salmeterol 250-50 mcg/dose 1 ea PO BID furosemide 20 mg PO .mwf lancets ([employer] Delica Plus Lancet) As directed levothyroxine 88 mcg PO DAILY@0600 magnesium oxide 400 mg PO Q OTHER DAY metformin ER 1,000 mg PO BID@1300,1900 metoprolol tartrate 25 mg PO BID 90 days montelukast 10 mg PO BEDTIME multivitamin (Multiple Vitamins tablet) 1 tab PO DAILY pantoprazole 40 mg PO DAILY piroxicam 10 - 20 mg PO QAM repaglinide 3 mg PO TID sennosides (senna) 8.6 mg PO BID PRN Do you need a note to return to daycare/school/sports/work: No HPI HPI COPD: Details: Ghazal is 79 years old very pleasant female is here for 6 months follow-up. Her main complaint is about the neck pain back pain and slow in walking with the walker. Breathing has been relatively stable. She does have mild intermittent cough . She is little bit confused about the use of her inhalers which I have clarify. She just turned 79 and had a big democrat. [facility] Medical History COPD (chronic obstructive pulmonary disease) Allergic rhinitis Venous insufficiency Hx of cardiomyopathy LBBB (left bundle branch block) Urge incontinence Brain aneurysm Back pain Restrictive airway disease Bronchial asthma Hemorrhoids Arthritis Depression Hypothyroidism Migraine headache Asthma Cubital tunnel syndrome Abdominal hyperesthesia Altered bowel habits Dyspepsia Gallstone pancreatitis Calculus of gallbladder Lipoma of other skin and subcutaneous tissue Hyperlipidemia DM II (diabetes mellitus, type II), controlled Rotator cuff tear arthropathy of right shoulder Subacromial impingement Subacromial bursitis Surgical History History of cardiac catheterization Hx of colonoscopy H/O craniotomy S/P surgical manipulation of knee joint History of shoulder surgery History of total right knee replacement History of total left knee replacement Family History Son Hypertension Brother Colon cancer Social History Household Members: None Housing: Apartment Are you a primary patient care coordinator to a significant other at home: No Do you presently have visiting nurse or other home services: Yes Alcohol intake: never Patient Tobacco Use Status: Former Tobacco user Tobacco use type: Cigarette service: No Current occupational status: disabled Review of Systems Const All systems reviewed & are unremarkable except as noted in HPI and below Eyes Reports no additional complaints ENT Reports nasal congestion (Mild off and on) Card Denies chest pain, Denies irregular heart rhythm and Denies leg edema Resp Reports as per HPI GI Reports heartburn (Being treated for GERD symptoms) Reports urinary incontinence (Mild, controlled with med) Musc Reports back pain Skin/Breast Reports system reviewed and no additional complaints, except as documented Neuro Reports no additional complaints Psych Reports no additional complaints Physical Exam Vital Signs: Last Vital Signs Pulse 87 01/22/25 09:38 BP 112/60 01/22/25 09:38 Pulse Ox 95 01/22/25 09:38 Oxygen Delivery Method Room Air 01/22/25 09:38 BMI result Body Mass Index 28.1 Const General: comfortable, no acute distress, alert and awake Orientation/consciousness: patient oriented x3 HEENT Head: Yes normal to inspection General nose exam: No nasal polyps present and No nasal discharge present Face and sinus: Yes sinuses nontender Mouth: oropharynx normal Throat: Yes posterior oropharynx normal Eyes General: appearance normal, both eyes and all related structures Neck Neck: Yes normal visual inspection, Yes no lymphadenopathy, Yes trachea midline and Yes no JVD Thyroid: Thyroid normal Chest Chest palpation & inspection: normal inspection of the chest, normal palpation of entire chest wall and no tenderness Resp Other: Percussion note is resonant, breath sounds are distant with prolonged expiratory phase. No wheezes rhonchi or crepitations are heard today. Cardio Palpation: normal PMI Rate: regular rate Rhythm: regular rhythm Heart sounds: no gallops and no murmurs GI Palpation (GI): Soft to palpation, nontender, No hepatosplenomegaly present and no masses Auscultation: normal bowel sounds Back/Spine/Pelvis Thoracic/Lumbar Spine: thoracic and lumbar spine normal to inspection, thoraco-lumbar ROM limited and thoraco-lumbar spasm Skin General skin exam: no rashes or lesions noted Neuro General: patient oriented x3, No gait normal (Gait is slightly impaired she uses cane when she goes outdoors) and no focal motor deficits Cranial nerves: Yes CN's II-XII intact bilaterally Extrem General: Yes normal to inspection, No no joint enlargement (Has had bilateral total knee replacements, knees stiff and slightly tender), Yes no clubbing, cyanosis or edema and Yes no calf tenderness Psych Appearance: grossly normal and well kempt Speech and movement: Normal speech and movement present Assessment & Plan Assessment & Plan (1) COPD (chronic obstructive pulmonary disease): Comment: Patient has mild Asthma/COPD . It has remained well controlled without any acute. Exacerbation in the last 6 months She has been using Ventolin 2 puffs b.i.d. as maintenance and Wixela just for p.r.n.. Code(s): J44.9 - Chronic obstructive pulmonary disease, unspecified Category: Medical Plan: I explained to her about the proper use of medicines. Wixela 250-51 inhalation b.i.d.. And use Ventolin 2 puffs Q 6 hours only p.r.n. (2) Allergic rhinitis: Comment: Mild intermittent, stable and controlled at this time. Code(s): J30.9 - Allergic rhinitis, unspecified Category: Medical Plan: She does have mild runny nose off and on due to allergies. It is controlled with the use of montelukast 10 mg daily and she is not needing to use any nasal spray Plan OK to continue using montelukast 10 mg daily Coding Level of Care Code Est Pt Level 3 (52250) Diagnoses COPD (chronic obstructive pulmonary disease) J44.9 Allergic rhinitis J30.9
[2025-01-22 09:38] VITALS: BP 112/60; PULSE 87; O2SAT 95; BMI 28.1
--- OUTSIDE RECORDS SUMMARY | 2025-01-22 10:38 | XMS_ITS | Encounter Summary ---
Author Organization [employer] Address [address] [facility] 7t [place] [address] Care Team Providers Care Geoscience Technician Name Role Phone Sarai Trejo MD Primary Care Provider [phone] Reason for Visit * Reason Onset Date Comments Lab Orders 02/24/2022 Encounter Details Date Type Department Care Team ([facility] st Contact Info) Description 02/24/2022 Telephone [facility] MEDICINE [address] [place], [place] [phone] Sarai Trejo MD [address] [place], [place] [phone] Lab Orders Social History Tobacco Use Types [...] requesting lab order to be sent to [facility] . . Pt informed received a call about 2 weeks ago to get labs done down stairs . Industrial Rehabilitation Consultant was unable to find orders. documented in this encounter Plan of Treatment Upcoming Encounters Date Type Department Care Team (Late st Contact Info) Description 02/14/2025 10:15 AM EST Office Visit [facility] ADULT DENTAL [address] [place] [address] Shira García documented as of this encounter Visit Diagnoses Not on filedocumented in this encounter Care Teams Geoscience Technician Relationship Specialty Start Date End Date Sarai Trejo MD [address] [place], [place] [phone] PCP - General Family Medicine 03/22/18 documented as of this encounter
--- OUTSIDE RECORDS SUMMARY | 2025-01-22 10:38 | XMS_ITS | Encounter Summary ---
Author Organization [employer] Address [address] 7[address] [place] [address] Care Team Providers Care Leasing Machine Tender Name Role Phone Sarai Trejo MD Primary Care Provider Reason for Visit * Reason Onset Date Comments Reschedule 07/16/2023 Encounter Details Date Type Department Care Team ([facility] st Contact Info) Description 07/16/2023 Telephone [facility] MEDICINE [address] [place], [place] [phone] Sarai Trejo MD [address] [place], [place] [phone] Reschedule Social History Tobacco Use Types Packs/Day [...] the past 12 months, has t he [employer], gas, oil or water company threatened to [...] not to early in the morning,insurance underwriter offer 2 different appts to pt on August but pt doesn't accept them. documented in this encounter Plan of Treatment Upcoming Encounters Date Type Department Care Team (Late st Contact Info) Description 02/14/2025 10:15 AM EST Office Visit [facility] ADULT DENTAL [address] [place] [address] Shira García documented as of this encounter Goals Goal Patient Goal Type Associated Problems Recent Progress Patient-Stated? Author Blood Pressure < 140/90 Blood Pressure 138/66(2024 10:42 AM EDT) No Yury Bee, PharmD Hemoglobin A1c < 7 Result Component 7.5( 9:56 AM EDT) No Yury Bee PharmD documented as of this encounter Visit Diagnoses Not on filedocumented in this encounter Care Teams Leasing Machine Tender Relationship Specialty Start Date End Date Sarai Trejo MD [address] [place] [address] PCP - General Family Medicine 03/22/18 documented as of this encounter
--- OUTSIDE RECORDS SUMMARY | 2025-01-22 10:38 | XMS_ITS | Encounter Summary ---
Author Organization [employer] Address [address] [facility] [address] [facility] [address] 7[address] [place] [address] Care Team Providers Care Clerk Telegraph Service Name Role Phone Sarai Trejo MD Primary Care Provider [phone] Encounter Details Date Type Department Care Team ([facility] st Contact Info) Description 03/09/2024 Abstract [facility] MEDICINE [address] [place], [place] [phone] [place] Social History Tobacco Use [...] 10:15 AM EST Office Visit [facility] ADULT DENTAL [address] [place] [address] Shira García documented as of this encounter [...] Results * Diabetes Eye Exam (10/07/2023) Pathologist [facility] Eye Exam Normal Normal Historical Provider HEALTH MAINTENANCE Final Result documented in this encounter Visit Diagnoses Not on filedocumented in this encounter Additional Health Concerns Assessment Noted Time PHQ-9 Depression Total Score: 0 08/12/19 24 11:13 AM EDT documented as of this encounter Care Teams Clerk Telegraph Service Relationship Specialty Start Date End Date Sarai Trejo MD [address] [place] [address] PCP - General Family Medicine 03/22/18 documented as of this encounter
--- OUTSIDE RECORDS SUMMARY | 2025-01-22 10:38 | XMS_ITS | Encounter Summary ---
Author Organization [employer] Address [address] [facility] [address] [place] [address] Care Team Providers Care Basting Cleaner Name Role Phone Sarai Trejo MD Primary Care Provider [phone] Reason for Visit * Reason Onset Date Comments Med Refill 05/17/2023 Encounter Details Date Type Department Care Team ([facility] st Contact Info) Description 05/17/[address] [facility] MEDICINE [address] [place], [place] [phone] Sarai Trejo MD [address] [place], [place] [phone] Med Refill Social History Tobacco Use Types [...] the past 12 months, has t he [employer], gas, oil or water company threatened to [...] EST Magnesium was sent to [facility] Pharm[facility] on 04/20/23 #45 with 1 [...] 500 MG tablet To be sent to: [facility] - [place], [place] - [address] [facility] documented in this encounter Plan of Treatment Upcoming Encounters Date Type Department Care Team (Late st Contact Info) Description 02/14/2025 10:15 AM EST Office Visit [facility] ADULT DENTAL [address] [place] [address] Shira García documented as of this encounter Goals Goal Patient Goal Type Associated Problems Recent Progress Patient-Stated? Author Blood Pressure < 140/90 Blood Pressure 138/66(2024 10:42 AM EDT) No Yury Bee, PharmRosy Hemoglobin A1c < 7 Result Component 7.5( 9:56 AM EDT) No Yury Bee, Magdalena documented as of this encounter Visit Diagnoses Not on filedocumented in this encounter Care Teams Basting Cleaner Relationship Specialty Start Date End Date Sarai Trejo MD [address] [place] [address] PCP - General Family Medicine 03/22/18 documented as of this encounter
--- OUTSIDE RECORDS SUMMARY | 2025-01-22 10:38 | XMS_ITS | Encounter Summary ---
Author Organization [employer] Address [address] 7[address] [place] [address] Care Team Providers Care Pulverizer Tender Name Role Phone Sarai Trejo MD Primary Care Provider [phone] Encounter Details Date Type Department Care Team (Late st Contact Info) Description 07/03/2022 Orders Only [facility] MEDICINE [address] [place], [place] [phone] Sarai Trejo MD [address] [place], [place] [phone] Social History Tobacco Use Types Packs/Day Years [...] Description 02/14/2025 10:15 AM EST Office Visit [facility] ADULT DENTAL [address] [place], [place] [phone] Shira García documented as of this encounter Visit Diagnoses Not on filedocumented in this encounter Care Teams Pulverizer Tender Relationship Specialty Start Date End Date Sarai Trejo MD [address] [place] [address] PCP - General Family Medicine 03/22/18 documented as of this encounter
--- OUTSIDE RECORDS SUMMARY | 2025-01-22 10:38 | XMS_ITS | Encounter Summary ---
Author Organization [employer] Address [address] [facility] [address] [place] [address] Care Team Providers Care Research And Development Director Name Role Phone Sarai Trejo MD Primary Care Provider [phone] Reason for Visit * Reason Onset Date Comments Medication 04/16/2023 Encounter Details Date Type Department Care Team ([facility] st Contact Info) Description 04/16/2023 Telephone [facility] MEDICINE [address] [place], [place] [phone] Sarai Trejo MD [address] [place], [place] [phone] Medication Social History Tobacco Use Types Packs/Day [...] Any questions you can contact pt at [phone]. documented in this encounter Plan of Treatment Upcoming Encounters Date Type Department Care Team (Late st Contact Info) Description 02/14/2025 10:15 AM EST Office Visit [facility] ADULT DENTAL [address] [place] [address] Shira García documented as of this encounter Goals Goal Patient Goal Type Associated Problems Recent Progress Patient-Stated? Author Blood Pressure < 140/90 Blood Pressure 138/66(2024 10:42 AM EDT) No Yury Bee, PharmD Hemoglobin A1c < 7 Result Component 7.5( 9:56 AM EDT) No Yury Bee, Magdalena documented as of this encounter Visit Diagnoses Not on filedocumented in this encounter Care Teams Research And Development Director Relationship Specialty Start Date End Date Sarai Trejo MD [address] [place] [address] PCP - General Family Medicine 03/22/18 documented as of this encounter
--- OUTSIDE RECORDS SUMMARY | 2025-01-22 10:38 | XMS_ITS | Encounter Summary ---
Author Organization [employer] Address [address] [place] [address] Care Team Providers Care Clinical Data Abstractor Name Role Phone Sarai Trejo MD Primary Care Provider [phone] Encounter Details Date Type Department Care Team ([facility] st Contact Info) Description 01/11/2024 Orders Only [facility] MEDICINE [address] [place], [place] [phone] Sarai Trejo MD [address] [place], [place] [phone] Social History Tobacco Use Types Packs/Day Years [...] Description 02/14/2025 10:15 AM EST Office Visit [facility] ADULT DENTAL [address] [place] [address] Shira García documented as of this encounter [...] documented as of this encounter Care Teams Clinical Data Abstractor Relationship Specialty Start Date End Date Sarai Trejo MD [address] [place] [address] PCP - General Family Medicine 03/22/18 documented as of this encounter
--- OUTSIDE RECORDS SUMMARY | 2025-01-22 10:38 | XMS_ITS | Encounter Summary ---
Author Organization [employer] Address [address] [facility] [address] [place] [address] Care Team Providers Care Fire Support Specialist Name Role Phone Sarai Trejo MD Primary Care Provider [phone] Reason for Visit * Reason Onset Date Comments PT1 08/20/2023 Encounter Details Date Type Department Care Team ([facility] st Contact Info) Description 08/20/2023 Telephone [facility] MEDICINE [address] [place], [place] [phone] Sarai Trejo MD [address] [place], [place] [phone] PT1 Social History Tobacco Use Types Packs/Day [...] Y/N: Yes Provider name or facility name: [facility] Facility Address: [address] [place] [address] Escort needed: Y/N: No Do you have a wheelchair: Y/N: No If yes- Manual or electric: Visits: 3-4 times a month Pt has an appt for 08/26/23 @1PM documented in this encounter Plan of Treatment Upcoming Encounters Date Type Department Care Team ([facility] st Contact Info) Description 02/14/2025 10:15 AM EST Office Visit [facility] ADULT DENTAL [address] [place] [address] Shira García documented as of this encounter [...] documented as of this encounter Care Teams Fire Support Specialist Relationship Specialty Start Date End Date Sarai Trejo MD [address] [place] [address] PCP - General Family Medicine 03/22/18 documented as of this encounter
--- OUTSIDE RECORDS SUMMARY | 2025-01-22 10:38 | XMS_ITS | Encounter Summary ---
Author Organization [employer] Address [address] [facility] [address] [facility] [address] [place] [address] Care Team Providers Care Hadoop Architect Name Role Phone Sarai Trejo MD Primary Care Provider [phone] Encounter Details Date Type Department Care Team ([facility] st Contact Info) Description 04/27/2023 Orders Only [facility] MEDICINE [address] [place], [place] [phone] Sarai Trejo MD [address] [place], [place] [phone] Social History Tobacco Use Types Packs/Day Years [...] 10:15 AM EST Office Visit [facility] ADULT DENTAL [address] [place] [address] Shira García documented as of this encounter Goals Goal Patient Goal Type Associated Problems Recent Progress Patient-Stated? Author Blood Pressure < 140/90 Blood Pressure 138/66(2024 10:42 AM EDT) No Yury Bee, PharmD Hemoglobin A1c < 7 Result Component 7.5( 9:56 AM EDT) No Yury Bee PharmD documented as of this encounter Visit Diagnoses Not on filedocumented in this encounter Care Teams Hadoop Architect Relationship Specialty Start Date End Date Sarai Trejo MD [address] [place] [address] PCP - General Family Medicine 03/22/18 documented as of this encounter
--- OUTSIDE RECORDS SUMMARY | 2025-01-22 10:38 | XMS_ITS | Encounter Summary ---
Author Organization [employer] Address [address] [facility] 7t [place] [address] Care Team Providers Care Balloon Dipper Name Role Phone Sarai Trejo MD Primary Care Provider [phone] Reason for Visit * Reason Comments Med Refill Encounter Details Date Type Department Care Team ([facility] st Contact Info) Description 12/19/2024 Refill [facility] [address] [place], [place] [phone] Sarai Trejo MD [address] [place], [place] [phone] Social History Tobacco Use Types Packs/Day Years [...] 10:15 AM EST Office Visit [facility] ADULT DENTAL [address] [place] [address] Shira García documented as of this encounter [...] documented as of this encounter Care Teams Balloon Dipper Relationship Specialty Start Date End Date Sarai Trejo MD [address] [place] [address] PCP - General Family Medicine 03/22/18 documented as of this encounter
--- OUTSIDE RECORDS SUMMARY | 2025-01-22 10:38 | XMS_ITS | Encounter Summary ---
Author Organization [employer] Address [address] 7[address] [place] [address] Care Team Providers Care Video Systems Engineer Name Role Phone Sarai Trejo MD Primary Care Provider [phone] Encounter Details Date Type Department Care Team ([facility] st Contact Info) Description 04/20/2023 Orders Only [facility] [address] [place], [place] [phone] Sarai Trejo MD [address] [place], [place] [phone] Social History Tobacco Use Types Packs/Day Years [...] Description 02/14/2025 10:15 AM EST Office Visit [facility] ADULT DENTAL [address] [place] [address] Shira García documented as of this encounter Goals Goal Patient Goal Type Associated Problems Recent Progress Patient-Stated? Author Blood Pressure < 140/90 Blood Pressure 138/66(2024 10:42 AM EDT) No Yury Bee, PharmD Hemoglobin A1c < 7 Result Component 7.5( 9:56 AM EDT) No Yury Bee PharmD documented as of this encounter Visit Diagnoses Not on filedocumented in this encounter Care Teams Video Systems Engineer Relationship Specialty Start Date End Date Sarai Trejo MD [address] [place] [address] PCP - General Family Medicine 03/22/18 documented as of this encounter
--- OUTSIDE RECORDS SUMMARY | 2025-01-22 10:39 | XMS_ITS | Encounter Summary ---
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
--- OUTSIDE RECORDS SUMMARY | 2025-01-22 10:39 | XMS_ITS | Encounter Summary ---
Author Organization [employer] Address [address] 7t [place] [address] Care Team Providers Care Glove Examiner Name Role Phone Sarai Trejo MD Primary Care Provider [phone] Encounter Details Date Type Department Care Team ([facility] st Contact Info) Description 12/20/2024 Orders Only [facility] MED[facility] [address] [place], [place] [phone] Sarai Trejo MD [address] [place], [place] [phone] Social History Tobacco Use Types Packs/Day Years [...] Description 02/14/2025 10:15 AM EST Office Visit [facility] ADULT DENTAL [address] [place] [address] Shira García documented as of this encounter [...] documented as of this encounter Care Teams Glove Examiner Relationship Specialty Start Date End Date Sarai Trejo MD 230 [place] [address] PCP - General Family Medicine 03/22/18 documented as of this encounter
--- OUTSIDE RECORDS SUMMARY | 2025-01-22 10:39 | XMS_ITS | Clinical Summary ---
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 Active albuterol (2.5 MG/3ML) 0.083% nebulizer solutionIndicati [...] DAILY 75 mL 1 025 2024 Discontinued clotrimazole (Lotrimin) 1 % cream Apply topically 2 times daily for 28 days. 30 g 2 025 2024 Active Problems Problem Noted Date Diagnosed Date [...] Assessment & Plan (06/05/2024 5:54 PM EDT): -Oil And Gas Lease Pumper: [facility], last seen in Jan 2024 -Current medications: [...] Assessment & Plan (11/18/2023 12:26 PM EDT): -Oil And Gas Lease Pumper: [facility], last seen in Mar 2022 -Current medications: [...] Assessment & Plan (04/20/2023 12:15 PM EST): -Oil And Gas Lease Pumper: [facility], last seen in Mar 2022 -Current medications: [...] Assessment & Plan (06/30/2022 12:45 PM EDT): -Oil And Gas Lease Pumper: [facility], last seen in Mar 2022 -Current medications: [...] Assessment & Plan (06/05/2024 5:54 PM EDT): -Oil And Gas Lease Pumper: [facility], last seen in Jan 2024 -Current medications: [...] Assessment & Plan (11/19/2023 3:46 PM EDT): -Oil And Gas Lease Pumper: [facility], last seen in June 2023 -Current medications: [...] Assessment & Plan (08/21/2023 7:54 AM EDT): -Oil And Gas Lease Pumper: [facility], last seen in June 2023 -Current medications: [...] Assessment & Plan (10/25/2022 6:02 AM EDT): -Oil And Gas Lease Pumper: [facility], last seen in Mar 2022 -Current medications: [...] Assessment & Plan (06/30/2022 12:44 PM EDT): -Oil And Gas Lease Pumper: [facility], last seen in Mar 2022 -Current medications: [...] Assessment & Plan (12/11/2024 5:17 AM EDT): -Oil And Gas Lease Pumper: [facility], last seen in May 2024 -Current medications: [...] Assessment & Plan (10/05/2024 6:15 AM EDT): -Oil And Gas Lease Pumper: [facility], last seen in May 2024 -Current medications: [...] Assessment & Plan (11/18/2023 12:26 PM EDT): -Oil And Gas Lease Pumper: [facility], last seen in June 2023 -Current medications: [...] Assessment & Plan (08/21/2023 7:52 AM EDT): -Oil And Gas Lease Pumper: [facility], last seen in June 2023 -Current medications: [...] Assessment & Plan (04/20/2023 12:14 PM EST): -Oil And Gas Lease Pumper: [facility], last seen in Oct 2022 -Current medications: [...] Assessment & Plan (02/13/2023 6:58 PM EST): -Oil And Gas Lease Pumper: [facility], last seen in Oct 2022 -Current medications: [...] Assessment & Plan (06/30/2022 12:45 PM EDT): -Oil And Gas Lease Pumper: [facility], last seen in Mar 2022 -Current medications: [...] neurologist. - Currently following with neurologist at [facility]. Last seen on 08/23/2024. Receiving Botox [...] neurologist. - Currently following with neurologist at [facility]. Last seen on 08/23/2024. Receiving Botox [...] neurologist. - Currently following with neurologist at [facility]. Last seen on 04/11/24. Receiving Botox. [...] Plan (08/21/2023 7:50 AM EDT): -Seen by [facility] orthopedist -She initially gave an informed consent [...] impairment - supportive family member - has [employer] (cannot provide transportation) - associated conditions: Urinary incontinence; headache s/p IC aneurysm repair; osteoarthritis of multiple joints - uses a walker Assessment & Plan (11/19/2023 3:45 PM EDT): - evaluated by neurologist - still capable of living in the community with assistance - supportive family member - has [employer] (cannot provide transportation) - associated conditions: Urinary incontinence; headache s/p IC aneurysm repair; osteoarthritis of multiple joints - uses a cane and walker Assessment & Plan (02/08/2023 1:06 PM EST): - evaluated by neurologist - still capable of living in the community with assistance - supportive family member - has [employer] (cannot provide transportation) - associated conditions: Urinary incontinence; headache s/p IC aneurysm repair; osteoarthritis of multiple joints - uses a cane and walker Assessment & Plan (10/25/2022 5:43 AM EDT): - evaluated by neurologist - still capable of living in the community with assistance - supportive family member - has [employer] (cannot provide transportation) - associated conditions: Urinary [...] (08/25/2022 4:53 AM EDT): - following with [facility] pulmonology, Dr. Terrell, last seen on 08/03/22 [...] and this will be done at [address] at [facility]. She states that she is [...] Pt took > 5 years of alendronate, 3743-1442, then restarted in [address] Guzmán Currently on zoledronic acid Continue weight bearing exercise. Continue adequate calcium and vitamin D intake Assessment & Plan (10/05/2024 6:26 AM EDT): Hx osteoporosis in 2000 DEXA on 09/05/20 T-score -2.2, osteopenia DEXA on 12/23/22 T-score -2.9, osteoporosis Pt took > 5 years of alendronate, 8904-4499, then restarted in [address] Guzmán Currently on zoledronic acid Continue weight bearing exercise. Continue adequate calcium and vitamin D intake Assessment & Plan (06/05/2024 10:05 AM EDT): Hx osteoporosis in 2000 DEXA on 09/05/20 T-score -2.2, osteopenia DEXA on 12/23/22 T-score -2.9, osteoporosis Pt took > 5 years of alendronate, 0661-3825, then restarted in [address] Guzmán Currently on zoledronic acid Continue weight bearing exercise. Continue adequate calcium and vitamin D intake Assessment & Plan (11/18/2023 6:26 AM EDT): Hx osteoporosis in 2000 DEXA on 09/05/20 T-score -2.2, osteopenia DEXA on 12/23/22 T-score -2.9, osteoporosis Pt took > 5 years of alendronate, 6122-2122, then restarted in [address] Guzmán Currently on zoledronic acid Continue weight bearing exercise. Continue adequate calcium and vitamin D intake Assessment & Plan (08/21/2023 7:55 AM EDT): Hx osteoporosis in 2000 DEXA on 09/05/20 T-score -2.2, osteopenia DEXA on 12/23/22 T-score -2.9, osteoporosis Pt took > 5 years of alendronate, 9872-2105, then restarted in [address] Guzmná Currently on zoledronic acid Continue weight bearing exercise. Continue adequate calcium and vitamin D intake Assessment & Plan (04/20/2023 12:16 PM EST): Hx osteoporosis in 2000 DEXA on 09/05/20 T-score -2.2, osteopenia DEXA on 12/23/22 T-score -2.9, osteoporosis Pt took > 5 years of alendronate, 7811-2644, then restarted in 2020 Pt requested to be referred to prompt care rn for other medications. Referred to prompt care rn. Dr. Guzmán's office. Patient has an upcoming appointment. Continue weight bearing exercise. Continue adequate calcium and vitamin D intake Assessment & Plan (02/13/2023 7:06 PM EST): Hx osteoporosis in 2000 DEXA on 09/05/20 T-score -2.2, osteopenia DEXA on 12/23/22 T-score -2.9, osteoporosis Pt took > 5 years of alendronate, 7952-4357, then restarted in 2020 Pt requested to be referred to prompt care rn for other medications. Referred to prompt care rn. Dr. Guzmán's office. Pt has not received an appt yet. Pt requests to be referred to another prompt care rn. Informed that it may delay her appt [...] Pt here for a HDF admitted to [facility] from 06/30/22 until 07/02/22. She presented with [...] Type Department Care Team Description 12/27/2024 Refill [facility] [address] [place] [address] Sarai Trejo MD Moderate persistent asthma without complication 12/26/2024 Refill [facility] [address] [place] [address] Sarai Trejo MD Type 2 diabetes mellitus without complication, without long-term current use of insulin (HCC) 12/21/2024 10:00 AM EDT Office Visit [facility] ADULT DENTAL [address] [place] [address] Lester Terrazas DDS Abfraction (Primary Dx); Excessive attrition of teeth; Missing teeth, acquired 12/20/2024 Orders Only [facility] MED[facility] [address] [place] [address] Sarai Trejo MD 12/19/[address] [address] Sarai Trejo MD Medication Question 12/19/2024 Refill [facility] [address] [place] [address] Sarai Trejo MD 12/17/2024 Refill [facility] [address] [place] [address] Sarai Trejo MD 12/11/2024 10:00 AM EDT Office Visit [address] [address] Sarai Trejo MD Primary hypertension (Primary Dx); Dyslipidemia; Chronic heart failure with preserved ejection fraction (CMS/HCC); Type 2 diabetes mellitus without complication, without long-term current use of insulin (CMS/HCC); Osteoporosis without current pathological fracture, unspecified osteoporosis type; Chronic intractable headache, unspecified headache type; Intractable chronic post-traumatic headache; Hypercalcemia; Moderate persistent asthma without complication; Postoperative hypothyroidism; Fibromyalgia 12/11/2024 Travel 12/08/2024 Telephone [facility] [address] [place] [address] Debbie Kimble [place] 11/20/2024 Refill [facility] MED[facility] [address] [place] [address] Sarai Trejo MD 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 11/17/2024 Refill [facility] [address] [place] [address] Sarai Trejo MD Insomnia, unspecified type 11/11/2024 Refill [facility] [address] [place] [address] Sarai Trejo MD 11/08/2024 Orders Only [facility] [address] [place] [phone] Sarai Trejo MD from Last 3 Months [...] Description 02/14/2025 10:15 AM EST Office Visit [facility] ADULT DENTAL [address] [place] [address] Shira García Health Maintenance Due Date Last [...] complication, without long-term current use of insulin ([facility]) POCT GLYCOSYLATED HEMOGLOBIN (HGB A1C) Routine 12/11/2024 9:56 AM EDT Type 2 diabetes mellitus without complication, without long-term current use of insulin ([facility]) BI MAMMOGRAM SCREENING TOMOSYNTHESIS BILATERAL Routine 11/08/2024 9:50 AM EDT ALBUMIN, RANDOM URINE W/CREATININE Routine 09/21/2024 11:13 AM EDT Type 2 diabetes mellitus without complication, without long-term current use of insulin ([facility]) LIPID PANEL WITH REFLEX TO DIRECT LDL Routine 09/21/2024 11:13 AM EDT Type 2 diabetes mellitus without complication, without long-term current use of insulin ([facility]) DIABETES EYE EXAM Routine 10/07/2023 from Last 3 Months or Most Recently Relevant to Health Maintenance Results * Vitamin D, 25-Hydroxy, Total, Immunoassay (12/11/2024 10:46 AM EDT) Vitamin D 25-OH Total 52.4 >30 ng/mL [facility] Comment: Health Based Reference Values*< 20 ng/mL Rabkkeule30-28 ng/mL Insufficient> 30 ng/mL Sufficient*Hanna GRANT. N [...] MD LAB BLOOD ORDERABLES Final Resul t [facility] [address] [place] [phone] * PTH, Intact Without Calcium (12/11/2024 10:46 AM EDT) Parathyroid Hormone, Intact 31.4 8.7 - 77.1 pg/mL [facility] Blood Venous blood specimen / Unknown 12/11/2024 10:46 AM EDT 12/11/2024 1:02 PM EDT us Sarai Trejo MD LAB BLOOD ORDERABLES Final Resul t [facility] [address] [place] [phone] * (ABNORMAL) Comprehensive Metabolic Panel (12/11/2024 10:46 AM EDT) Sodium 139 135 - 145 mmol/L [facility] Potassium 4.7 3.3 - 5.1 mmol/L [facility] Chloride 101 96 - 108 mmol/L [facility] Carbon Dioxide 29 22 - 29 mmol/L [facility] Anion Gap 14 12 - 20 [facility] Urea Nitrogen (BUN) 17(H) 9 - 16 mg/dL [facility] Creatinine, Serum 0.66 0.5 - 1.4 mg/dL [facility] Estimated Glomerular Filt Rate >60 [facility] Comment:Chronic Kidney Disea se: Estimated GFR < 60 mL/min/1.14r1Bugzoo Kidney Disease: Estimated GFR < 15 mL/min/1.73m2 Glucose 197(H) 60 - 115 mg/dL [facility] Calcium 10.0 8.4 - 10.2 mg/dL [facility] Bilirubin, Total 0.5 0.0 - 1.0 mg/dL [facility] Aspartate Amino Transferase 28 5 - 31 U/L [facility] Alanine Aminotransferase 23 0 - 31 U/L [facility] Total Protein 7.7 6.5 - 8.0 g/dL [facility] Albumin Level 4.6 3.5 - 5.0 g/dL [facility] Alkaline Phosphatase 65 39 - 117 U/L [facility] Blood Venous blood specimen / Unknown 12/11/2024 10:46 AM EDT 12/11/2024 1:02 PM EDT Sarai Trejo MD LAB BLOOD ORDERABLES Final Resul t [facility] [address] [place] [phone] * (ABNORMAL) POCT glycosylated hemoglobin (Hgb A1c) (12/11/2024 9:56 AM EDT) Hemoglobin A1C 7.5(A) 4.0 - 5.7 % QC Media Lot # [id number] Lot# Expiration Date [id number], Blood Capillary blood specimen / Unknown 12/11/2024 9:56 AM EDT Sarai Trejo MD POINT OF CARE TEST ENTER/EDIT OR DERABLES Final Result * (ABNORMAL) POCT glucose manually resulted (12/11/2024 9:56 AM EDT) Glucose Blood, POC 255(A) 60 - 200 mg/dL [employer] Media Lot # [id number] Lot# Expiration Date [id number] Blood Capillary blood specimen / Unknown 12/11/2024 9:56 AM EDT Sarai Trejo MD POINT OF CARE TEST ENTER/EDIT OR DERABLES Final Result * BI Mammogram Screening Tomosynthesis Bilateral (11/08/2024 9:50 AM EDT) Anatomical Region Laterality Modality Breast Bilateral Mammography 11/08/2024 9:50 AM EDT Narrative 11/09/2024 4:57 PM EDT [facility] [address] [place] [address] Mammography Report Signed Patient: Aaliyah Brennan I MR#: [id number] : 1945 Acct:[id number] Age/Sex: 78 / F ADM Date: 11/08/24 Loc: [facility] Attending Dr: Sarai Trejo MD Ordering Physician: Sarai Trejo MD Results: 1Negative Date of Service: 11/08/24 Follow Up: 1 Year From Orig inal Mammogram Procedure(s): MM tomosynthesis screening BI Accession Number(s): [id number] cc: Sarai Trejo MD EXAMINATION: MM SCREENING [...] 11/09/24 1654 DD/ 0950 TD/TT: 11/08/24 1015 Casing Machine Operator: Procedure Note Donotuseinterpreter, Image - 11/09/2024 [facility] [address] [place] [address] Mammography Report Signed Patient: Aaliyah Brennan [facility]#: [id number] : 5Acct:[id number] Age/Sex: 78 / FADM Date: 11/08/24 Loc: [facility] Attending Dr: Sarai Trejo MD Ordering Physician: Sarai Trejo MDResults: 1Negative Date of Service: 08/20/25Follow Up: 1 Year From Orig ina Mammogram Procedure(s): MM tomosynthesis screening BI Accession Number(s): [id number] cc: Sarai Terjo MD EXAMINATION: MM SCREENING DIGITAL BREAST TOMOSYNTHESIS, [...] 11/09/24 1654 DD/ 0950 TD/TT: 11/08/24 1015 Casing Machine Operator: Sarai Trejo MD IM BI PROCEDURES Final Result * (ABNORMAL) Lipid Panel with Reflex to Direct LDL (09/21/2024 11:13 AM EDT) Triglycerides 127 <150 mg/dL [facility] Comment:Desirable Triglyceri de: less than 150 mg/dLBorderline High Triglyceride 150-199 mg/dLHigh Triglyceride: 200-499 mg/dLVery High Triglyceride: greater than or equal to 5OO mg/dL Cholesterol 147 <200 mg/dL [facility] Comment:Desirable Cholestero l: less than 200 mg/dLBorderline High Cholesterol: 200-239 mg/dLHigh Cholesterol: greater than 239 mg/dL LDL Cholesterol Calculated 83 <100 mg/dL [facility] Comment:Desirable LDL: less than 100 mg/dLNear Optimal/Above Optimal LDL: 110- 129 mg/dLBorderline High LDL: 130-159 mg/dLHigh LDL: 160-189 mg/dLVery High LDL: greater than or equal to 190 mg/dL HDL Cholesterol 39(L) >40 mg/dL [facility] Comment:Desirable HDL: great er than 40 mg/dL Note: This HDL assay may give artificially low results in patients with liver disease. Blood 09/21/2024 11:1 3 AM EDT 09/21/2024 1:09 PM EDT us Sarai Trejo MD LAB BLOOD ORDERABLES Final Resul t Performing Organization Address [facility] [[email or web address]] Co de Phone Number [facility] [address] [place] [phone] * Albumin, Random Urine W/Creatinine (09/21/2024 11:13 AM EDT) Creatinine, Urine 93.27 mg/dL [facility] Microalbumin Urine 13.0 mg/L [facility] Microalbum Creatinine Ratio Ur 13.9 <30 ug/mg cr [facility] Comment:Albumin/Creatinine R atio Reference Ranges: Normal: < 30 ug/mg creatinine Microalbuminuria: 30 - 300 ug/mg creatinineClinical Albuminuria: > 300 ug/mg creatinine Urine 09/21/2024 11:1 3 AM EDT 09/21/2024 12:58 PM EDT us Sarai Trejo MD LAB URINE ORDERABLES Final Resul t Performing Organization Address [facility]/ZIP Co de Phone Number [facility] [address] [place] [address] [phone] * Diabetes Eye Exam (10/07/2023) Eye Exam Normal Normal us Historical Provider HEALTH MAINTENANCE Final Result from Last 3 Months or Most Recently Relevant to Health Maintenance Insurance DENTAL [facility] Care Teams Gift Packer Relationship Specialty Start Date End Date Sarai Trejo MD [address] [place] [address] PCP - General Family Medicine 03/22/18
--- OUTSIDE RECORDS SUMMARY | 2025-01-22 10:39 | XMS_ITS | Encounter Summary ---
Author Organization [employer] Address [address] [place] [address] Care Team Providers Care Conference Service Coordinator Name Role Phone Sarai Trejo MD Primary Care Provider Reason for Visit * Reason Onset Date Comments Reschedule 03/17/2023 Encounter Details Date Type Department Care Team ([facility] st Contact Info) Description 03/17/2023 Telephone [facility] [address] [place], [place] [phone] Sarai Trejo MD [address] [place], [place] [phone] Reschedule Social History Tobacco Use Types Packs/Day [...] the past 12 months, has t he [employer], gas, oil or water company threatened to [...] Description 02/14/2025 10:15 AM EST Office Visit [facility] [address] [place] [address] Shira García documented as of this encounter Goals Goal Patient Goal Type Associated Problems Recent Progress Patient-Stated? Author Blood Pressure < 140/90 Blood Pressure 138/66(2024 10:42 AM EDT) No Yury Bee, Magdalena Hemoglobin A1c < 7 Result Component 7.5( 9:56 AM EDT) No Yury Bee PharmD documented as of this encounter Visit Diagnoses Not on filedocumented in this encounter Care Teams Conference Service Coordinator Relationship Specialty Start Date End Date Sarai Trejo MD [address] [place] [address] PCP - General Family Medicine 03/22/18 documented as of this encounter
--- OUTSIDE RECORDS SUMMARY | 2025-01-22 10:39 | XMS_ITS | Encounter Summary ---
Author Organization [employer] Address [address] [facility] [address] 7t [place] [address] Care Team Providers Care Health Care Recruiter Name Role Phone Sarai Trejo MD Primary Care Provider [phone] Encounter Details Date Type Department Care Team ([facility] st Contact Info) Description 02/26/[address] [facility] MEDICINE [address] [place], [place] [phone] Sarai Trejo MD [address] [place], [place] [phone] Social History Tobacco Use Types Packs/Day Years [...] Description 02/14/2025 10:15 AM EST Office Visit [facility] ADULT DENTAL [address] [place] [address] Shira García documented as of this encounter Goals Goal Patient Goal Type Associated Problems Recent Progress Patient-Stated? Author Blood Pressure < 140/90 Blood Pressure 138/66(2024 10:42 AM EDT) No Yury Bee, PharmD Hemoglobin A1c < 7 Result Component 7.5( 9:56 AM EDT) No Yury Bee PharmD documented as of this encounter Visit Diagnoses Not on filedocumented in this encounter Care Teams Health Care Recruiter Relationship Specialty Start Date End Date Sarai Trejo MD [address] [place] [address] PCP - General Family Medicine 03/22/18 documented as of this encounter
--- OUTSIDE RECORDS SUMMARY | 2025-01-22 10:39 | XMS_ITS | Encounter Summary ---
Author Organization [employer] Address [address] [facility] [address] 7t [place] [address] Care Team Providers Care Solution Manager Name Role Phone Sarai Trejo MD Primary Care Provider [phone] Encounter Details Date Type Department Care Team (Late st Contact Info) Description 04/30/2022 Orders Only [facility] [address] [place], [place] [phone] Sona Manzo LPN Social History Tobacco Use [...] 02/14/2025 10:15 AM EST Office Visit [facility] ADULT DENTAL 230 [place] [address] Shira García documented as of this encounter Visit Diagnoses Not on filedocumented in this encounter Care Teams Solution Manager Relationship Specialty Start Date End Date Sarai Trejo MD 230 [place], [place] [phone] PCP - General Family Medicine 03/22/18 documented as of this encounter
--- OUTSIDE RECORDS SUMMARY | 2025-01-22 10:39 | XMS_ITS | Encounter Summary ---
Author Organization [facility] Address [address] [place] [address] Phone Care Team Providers Care Car Construction Superintendent Name Role Phone Huey Herrera DO Primary Care Provider [phone] Sarai Trejo MD Primary Care Provider [phone] Sarai Trejo MD Primary Care Provider [phone] Encounter Details Date Type Department Care Team (Late st Contact Info) Description 07/24/2020 Ancillary Orders Non-Invasive Cardiology [address] [place] [address] Mary Davis MD [address] [place] [phone] [email or web address] Palpitations Social History Tobacco Use [...] AM EDT Office Visit [facility] [address] [place] [address] Zach [place]zmán [place] [address] [email or web address] documented as of this encounter Visit Diagnoses Diagnosis Palpitations documented in this encounter Care Teams Car Construction Superintendent Relationship Specialty Start Date End Date Huey Herrera DO [address] [place] [address] PCP - General Cardiology 07/25/20 06/05/24 Sarai Trejo MD Megan [facility] [place] [address] PCP - General 07/24/20 07/24/20 [place] [address] PCP - General Family Medicine 06/06/24 documented as of this encounter Additional Source Comments The information contained in this document represents components of the legal health record. It is not the complete legal health record.[facility]
--- OUTSIDE RECORDS SUMMARY | 2025-01-22 10:39 | XMS_ITS | Encounter Summary ---
Author Organization [employer] Address [address] [facility] 7t [place] [address] Care Team Providers Care Culinary Artist Name Role Phone Sarai Trejo MD Primary Care Provider [phone] Encounter Details Date Type Department Care Team ([facility] st Contact Info) Description 09/05/2024 Telephone [facility] MEDICINE [address] [place], [place] [phone] Sarai Trejo MD [address] [place], [place] [phone] Social History Tobacco Use Types Packs/Day Years [...] Description 02/14/2025 10:15 AM EST Office Visit [facility] ADULT DENTAL 230 [place] [address] Shira García documented as of this encounter [...] documented as of this encounter Care Teams Culinary Artist Relationship Specialty Start Date End Date Sarai Trejo MD [address] [place] [address] PCP - General Family Medicine 03/22/18 documented as of this encounter
--- OUTSIDE RECORDS SUMMARY | 2025-01-22 10:39 | XMS_ITS | Encounter Summary ---
Author Organization [employer] Address [address] [facility] 7t [place] [address] Care Team Providers Care Vp Ad Products And Planning Name Role Phone Sarai Trejo MD Primary Care Provider [phone] Encounter Details Date Type Department Care Team (Late st Contact Info) Description 12/11/2022 Orders Only [facility] MEDICINE [address] [place] [address] Sarai Trejo MD 230 [place], [place] [phone] Chronic intractable headache, unspecified headache type (Primary Dx); Female stress incontinence; Primary hypertension; Type 2 diabetes mellitus without complication, without long-term current use of insulin ([facility]); Weight loss; Postoperative hypothyroidism Social History Tobacco [...] [facility] ADULT DENTAL [address] [place], [place] [phone] Shira García Scheduled Orders Name Type Priority Associated Diagnoses Orde r Schedule Vitamin B12/Folate, Serum Panel Lab Routine Type 2 diabetes mellitus without complication, without long-term current use of insulin ([facility]) Expected: 12/11/2022 (Approximate), Expires: 12/12/2023 Albumin, Random Urine W/Creatinine Lab Routine Type 2 diabetes mellitus without complication, without long-term current use of insulin ([facility]) Expected: 12/11/2022 (Approximate), Expires: 12/12/2023 Hemoglobin A1c Lab Routine Type 2 diabetes mellitus without complication, without long-term current use of insulin ([facility]) Expected: 12/11/2022 (Approximate), Expires: 12/12/2023 Comprehensive Metabolic Panel Lab Routine Type 2 diabetes mellitus without complication, without long-term current use of insulin ([facility]) Expected: 12/11/2022 (Approximate), Expires: 12/12/2023 Lipid Panel with Reflex to Direct LDL Lab Routine Type 2 diabetes mellitus without complication, without long-term current use of insulin ([facility]) Expected: 12/11/2022 (Approximate), Expires: 12/12/2023 TSH W/Reflex [...] AM EDT Narrative 12/24/2022 11:33 AM EDT [facility] [address] [place] [address] Mammography Report Signed Patient: Aaliyah Brennan I MR#: [id number] : 1945 Acct:[id number] Age/Sex: 77 / F ADM Date: 12/23/22 Loc: [facility] Attending Dr: Sarai Trejo MD Ordering Physician: Sarai Trejo MD Results: Date of Service: 12/23/22 Follow Up: Procedure(s): XR DEXA axial skeleton Accession Number(s): [id number] cc: Sarai Trejo MD EXAMINATION: BONE DENSITOMETRY CLINICAL INDICATION: Osteopenia. Bisphosphonate treatment. COMPARISON: Previous BD dated 09/05/2020 and baseline BD dated 01/28/2007. TECHNIQUE: Using a Wagon DXA System (software version: 13.1) manufactured by [employer], dual-energy x-ray absorptiometry was performed of the [...] in OV> 12/24/22 1129 DD/ 1055 TD/TT: Rn Transplant: DB Procedure Note Donotuseinterpreter, Image - 12/24/2022 [facility] [address] [place] [address] Mammography Report Signed Patient: Aaliyah Brennan [facility]#: [id number] : 5Acct:[id number] Age/Sex: 77 / FADM Date: 12/23/22 Loc: ALEXANDERO Attending Dr: Sarai Trejo MD Ordering Physician: Sarai Trejo MDResults: Date of Service: 12/23/22Follow Up: Procedure(s): XR DEXA axial skeleton Accession Number(s): [id number] cc: Sarai Trejo MD EXAMINATION: BONE DENSITOMETRY CLINICAL INDICATION: Osteopenia. Bisphosphonate treatment. COMPARISON: Previous BD dated 09/05/2020 and baseline BD dated 01/28/2007. TECHNIQUE: Using a Wagon DXA System (software version: 13.1) manufactured by [employer], dual-energy x-ray absorptiometry was performed of the [...] in OV> 12/24/22 1129 DD/ 1055 TD/TT: Rn Transplant: DB Sarai Trejo MD IMG XR PROCEDURES Edited Result - Final documented in this encounter Visit Diagnoses Diagnosis Chronic intractable headache, unspecified headache type- Primary Female stress incontinence Primary hypertension Unspecified essential hypertension Type 2 diabetes mellitus without complication, without long-term current use of insulin (HCC) Weight loss Loss of weight Postoperative hypothyroidism Postsurgical hypothyroidism documented in this encounter Care Teams Vp Ad Products And Planning Relationship Specialty Start Date End Date Sarai Trejo MD [address] [place] [address] PCP - General Family Medicine 03/22/18 documented as of this encounter
--- OUTSIDE RECORDS SUMMARY | 2025-01-22 10:39 | XMS_ITS | Patient Health Record ---
Author Organization [facility] Address [address] [place] [address] Care Team Providers Care Greens Or Grounds Superintendent Name Role Phone Neil DOTY, Sarai Primary Care Provider Sergey Mathews Unavailable [phone] Allergies No Known Allergies Reason For Referral [...] Status Risk Notes Problem Irritable bowel syndrome (79293386) Irritable bowel syndrome (K58.9) Active confirmed Problem Screening for malignant neoplasm of colon (947457088) Encounter for screening for malignant neoplasm of colon (Z12.11) Active confirmed Problem Irritable bowel syndrome (85363106) Irritable bowel syndrome without diarrhea (K58.9) Active confirmed Problem Family History of Cancer of Colon (Situation) (609692856) Family history of colon cancer (Z80.0) Active confirmed Problem Right upper quadrant pain (590836057) Abdominal pain, right upper quadrant (R10.11) Active confirmed Problem CT of abdomen abnormal (311077180619793 07) Abnormal CT of the abdomen (R93.5) Active confirmed Problem Irritable bowel syndrome (00903382) Irritable bowel syndrome with both constipation and diarrhea (K58.2) Active confirmed Problem Right upper quadrant pain (650958560) RUQ pain (R10.11) Active confirmed Problem Acute pancreatitis (086328593) Acute biliary pancreatitis without infection or necrosis (K85.10) Active confirmed Problem Right upper quadrant pain (895255879) Abdominal wall pain in right upper quadrant (R10.11) Active confirmed Plan Of Treatment Pending Test Test Name Order Date BUN 03/27/2015 CREATININE 03/27/2015 LIVER PROFILE 03/27/2015 Future Test Test Name Order Date COLONOSCOPY 07/10/2014 COLONOSCOPY 04/17/2020 Insurance Providers Payer Name Payer Address Payer Phone Subscriber Number Group Number Insured Name Patient Relationship to Insured Coverage Start Date Coverage End Date [facility] [address] [address] [place] [phone] [id number] JAYLEN RONDON Self - patient is the insured Medical (General) History Medical History History ICD Code Colonoscopies in 2003 and 03-28-2009--both negative for polyps-did have diverticulosis and hemorrhoids Osteoporosis Back pain Depression Denies ME,CVA,renal disease COPD NIDDM Neuropathy GERD Hypothroidism Negative [...]
--- OUTSIDE RECORDS SUMMARY | 2025-01-22 10:39 | XMS_ITS | Clinical Summary ---
Author Organization [facility] Address [address] [phone] Care Team Providers Care Interlocker Maintainer Name Role Phone Unavailable Primary Care Provider [...]
--- OUTSIDE RECORDS SUMMARY | 2025-01-22 10:39 | XMS_ITS | Encounter Summary ---
Author Organization [facility] Address [address] [place] [address] Phone Care Team Providers Care Field Contractor Name Role Phone Huey Herrera DO Primary Care Provider [phone] Sarai Trejo MD Primary Care Provider Sarai Trejo MD Primary Care Provider [phone] Encounter Details Date Type Department Care Team (Late st Contact Info) Description 07/24/2020 Ancillary Orders [facility] [address] [facility] 3rd Floor, [address] [place] [address] Mary Davis MD [address] [place] [phone] [email or web address] Social History Tobacco Use Types Packs/Day Years [...] AM EDT Office Visit [facility] [address] [place] [address] Zach Guzmán DO 22 [place] [address] [email or web address] documented as of this encounter Visit Diagnoses Not on filedocumented in this encounter Care Teams Field Contractor Relationship Specialty Start Date End Date Huey Herrera DO [address] [place] [address] PCP - General Cardiology 07/25/20 06/05/24 Sarai Trejo MD [address] [place] [address] PCP - General 07/24/20 07/24/20 Sarai Trejo MD [address] [place] [address] PCP - General Family Medicine 06/06/24 documented as of this encounter Additional Source Comments The information contained in this document represents components of the legal health record. It is not the complete legal health record.[facility]
--- OUTSIDE RECORDS SUMMARY | 2025-01-22 10:39 | XMS_ITS | Encounter Summary ---
Author Organization [employer] Address [address] [facility] 7t [place] [address] Care Team Providers Care Service Worker Name Role Phone Sarai Trejo MD Primary Care Provider [phone] Encounter Details Date Type Department Care Team (Late st Contact Info) Description 11/06/2022 Orders Only [facility] MEDICINE [address] [place] [address] Sarai Trejo MD 230 [place], [place] [phone] Right arm pain (Primary Dx); Right elbow [...] Description 02/14/2025 10:15 AM EST Office Visit [facility] ADULT DENTAL [address] [place], [place] [phone] Shira García documented as of this encounter Visit Diagnoses Diagnosis Right arm pain- Primary Pain in soft tissues of limb Right elbow pain Pain in joint, upper arm Acute pain of right shoulder documented in this encounter Care Teams Service Worker Relationship Specialty Start Date End Date Sarai Trejo MD [address] [place] [address] PCP - General Family Medicine 03/22/18 documented as of this encounter
--- OUTSIDE RECORDS SUMMARY | 2025-01-22 10:39 | XMS_ITS | Encounter Summary ---
Author Organization [employer] Address [address] [facility] 7t [place] [address] Care Team Providers Care Meat Pumper Name Role Phone Sarai Trejo MD Primary Care Provider Reason for Visit * Reason Onset Date Comments HDF 07/03/2022 Encounter Details Date Type Department Care Team ([facility] st Contact Info) Description 07/03/2022 Telephone [facility] MEDICINE [address] [place], [place] [phone] Sarai Trejo MD [address] [place], [place] [phone] HDF Social History Tobacco Use Types Packs/Day [...] HDF F/U (no symptoms) Patient hospitalized at [facility]. Patient was admitted on 06/30/2022 and discharged on 07/02/2022 . The patient was diagnosed with Pulmonary. Patient advised will forward to [facility] Clinical Coordinators for follow up and appointment scheduling. Please contact pt at [phone] [facility] luc[facility] Speaker documented in this encounter Plan of Treatment Upcoming Encounters Date Type Department Care Team (Late st Contact Info) Description 02/14/2025 10:15 AM EST Office Visit [facility] ADULT DENTAL 230 [place] [address] Shira García documented as of this encounter Visit Diagnoses Not on filedocumented in this encounter Care Teams Meat Pumper Relationship Specialty Start Date End Date Sarai Trejo MD [address] [place] [address] PCP - General Family Medicine 03/22/18 documented as of this encounter
--- OUTSIDE RECORDS SUMMARY | 2025-01-22 10:39 | XMS_ITS | Clinical Summary ---
Author Organization [facility] Address [address] [place] [address] Phone Care Team Providers Care Carpet Layer Name Role Phone Sarai Trejo MD Primary Care Provider [phone] Allergies Active Allergy Reactions Criticality Noted Date [...] and this will be done at [address] at [facility]. She states that she is willing [...] 11:30 AM EDT Office Visit [facility] [address] [place] [address] Zach Guzmán DO [address] [place] [address] Health Maintenance Due Date Last Done Comments [...] Date/Time Associated Diagnosis Comments BASIC METABOLIC PANEL (BMP) Routine 06/06/2024 12:31 PM EDT Other osteoporosis without current pathological fracture from Last 3 Months or Most Recently Relevant to Health Maintenance Results * (ABNORMAL) Basic metabolic panel (06/06/2024 12:31 PM EDT) SODIUM 140 133 - 146 mmol/L [facility] CHLORIDE 101 96 - 108 mmol/L [facility] POTASSIUM 4.7 3.3 - 5.1 mmol/L [facility] CO2 30 21 - 35 mmol/L [facility] BUN 21(H) 6 - 19 mg/dL [facility] CREATININE 0.60 0.5 - 1.5 mg/dL [facility] GLUCOSE 128(H) 70 - 99 mg/dL [facility] CALCIUM 10.6(H) 8.4 - 10.3 mg/dL [facility] EGFR 91 >59 mL/min/1.7 3m2 [facility] Comment:Estimated glomerular filtration rate calculated using the CKD-EPI refit equation. ANION GAP 14 10 - 20 mmol/L [facility] Blood 06/06/2024 12:3 1 PM EDT 06/06/2024 12:37 PM EDT us Zach Guzmán DO LAB BLOOD BKR ORDERABLES Final R esult [address] [address] from Last 3 Months or Most Recently Relevant to Health Maintenance Insurance MEDICARE PART A & B MEDICARE REPLACEMENT MEDICARE PART A & B MEDICARE [place] [address] [place] [address] MEDICARE REPLACEMENT MEDICARE PART A & B MEDICARE REPLACEMENT MEDICARE PART A & B Member Subscriber Plan / Payer (Ef fective 2010-Present) Name:Aaliyah Light I Member ID:[id number] Relation to Subscriber:Self Name:Kuldeep Aaliyah Kimberly Subscriber ID:[id number] Payer ID:[id number] Group ID:Not on file Type:Medicare Address: [employer] [id number] * Guarantor: Aaliyah Light I Account Type Relation to Patient Date of Phone Billing Address Personal/Family Self [address] [place] [address] MEDICARE REPLACEMENT MEDICARE PART A & B Member Subscriber Plan / Payer (Ef fective 2010-Present) Name:Aaliyah Light I Member ID:[id number] Relation to Subscriber:Self Name:Aaliyah Light I Subscriber ID:[id number] Payer ID:[id number] Group ID:Not on file Type:Medicare Address: [employer] [address] [place] [phone] * Guarantor: Aaliyah Light I Account Type Relation to Patient Date of Phone Billing Address Personal/Family Self [address] [place] [address] MEDICARE REPLACEMENT MEDICARE PART A & B Care Teams Carpet Layer Relationship Specialty Start Date End Date Sarai Trejo MD [address] [place] [address] PCP - General Family Medicine 06/06/24 Additional Source Comments The information contained in this document represents components of the legal health record. It is not the complete legal health record.[facility]
--- OUTSIDE RECORDS SUMMARY | 2025-01-22 10:39 | XMS_ITS | Encounter Summary ---
Author Organization [facility] Address [address] [facility] [facility] [address] [place] [address] Phone Care Team Providers Care Vault Person Name Role Phone Huey Herrera DO Primary Care Provider Sarai Trejo MD Primary Care Provider [phone] Reason for Referral * Consultation (Within 1 month) - Closed Specialty Diagnoses / Procedures Referred By Contac t Referred To Contact Endocrinology Diagnoses Osteoporosis, unspecified osteoporosis type, unspecified pathological fracture presence Sarai Trejo MD Phone: tel: fax: Zach Guzmán DO Phone: tel: fax: [email or web address] Referral ID Status Reason Start Date Expiration Date Visits Re quested Visits Authorized [id number] Closed 02/26/2023 02/27/2024 1 1 Encounter Details Date Type Department Care Team (Latest Contact Info) Description 02/26/2023 Transcribe Orders [facility] [address] [place] [address] Zach Guzmán DO [address] [place] [address] Osteoporosis, unspecified osteoporosis type, unspecified pathological fracture [...] 11:30 AM EDT Office Visit [facility] [address] [place] [address] Zach Guzmán DO [address] [place] [address] [email or web address] Scheduled Referrals Name Type Priority Associated Diagnoses Orde r Schedule Ambulatory referral to [facility] Endocrinology Outpatient Referral Routine Osteoporosis, unspecified osteoporosis type, unspecified pathological fracture presence Ordered: 02/26/2023 documented as of this encounter Visit Diagnoses Diagnosis Osteoporosis, unspecified osteoporosis type, unspecified pathological fracture presence- Primary documented in this encounter Care Teams Vault Person Relationship Specialty Start Date End Date Huey Herrera DO [address] [place] [address] PCP - General Cardiology 07/25/20 06/05/24 Sarai Trejo MD [address] [place] [address] PCP - General Family Medicine 06/06/24 documented as of this encounter Additional Source Comments The information contained in this document represents components of the legal health record. It is not the complete legal health record.[facility]
--- OUTSIDE RECORDS SUMMARY | 2025-01-22 10:39 | XMS_ITS | Encounter Summary ---
Author Organization [facility] Address [address] [facility] [address] [place] [address] Phone Care Team Providers Care Gas Golf Cart Repairer Name Role Phone Huey Herrera DO Primary Care Provider Sarai Trejo MD Primary Care Provider [phone] Sarai Trejo MD Primary Care Provider [phone] Encounter Details Date Type Department Care Team (Late st Contact Info) Description 07/24/[address] [facility] [address] [place] [address] Social History Tobacco Use Types Packs/Day Years [...] AM EDT Office Visit [facility] [address] [place] [address] Zach Guzmán DO 22 [place] [address] documented as of this encounter Visit Diagnoses Not on filedocumented in this encounter Care Teams Gas Golf Cart Repairer Relationship Specialty Start Date End Date Huey Herrera DO [address] [place] [address] PCP - General Cardiology 07/25/20 06/05/24 Sarai Trejo MD [address] [place] [address] PCP - General 07/24/20 07/24/20 Sarai Trejo MD [address] [place] [address] PCP - General Family Medicine 06/06/24 documented as of this encounter Additional Source Comments The information contained in this document represents components of the legal health record. It is not the complete legal health record.[facility]
--- OUTSIDE RECORDS SUMMARY | 2025-01-22 10:39 | XMS_ITS | Encounter Summary ---
Author Organization [employer] Address [address] [place] [address] Care Team Providers Care Ice Cream Shop Associate Name Role Phone Sarai Trejo MD Primary Care Provider [phone] Encounter Details Date Type Department Care Team (Late st Contact Info) Description 03/02/2023 Orders Only [facility] [address] [place], [place] [phone] Sarai Trejo MD [address] [place], [place] [phone] Abdominal pain, unspecified abdominal location (Primary Dx); [...] the past 12 months, has t he Mtime, gas, oil or water company threatened to [...] [facility] [address] [place] [address] Shira García documented as of this encounter [...] type documented in this encounter Care Teams Ice Cream Shop Associate Relationship Specialty Start Date End Date Sarai Trejo MD [address] [place] [address] PCP - General Family Medicine 03/22/18 documented as of this encounter
--- OUTSIDE RECORDS SUMMARY | 2025-01-22 10:39 | XMS_ITS | Encounter Summary ---
Author Organization [employer] Address [address] 7t [place] [address] Care Team Providers Care Category Director Name Role Phone Sarai Trejo MD Primary Care Provider [phone] Encounter Details Date Type Department Care Team (Late st Contact Info) Description 06/03/2022 Orders Only [facility] [address] [place], [place] [phone] Sona Manzo LPN Social History Tobacco Use [...] Description 02/14/2025 10:15 AM EST Office Visit [facility] ADULT DENTAL 230 [place] [address] Shira García documented as of this encounter Visit Diagnoses Not on filedocumented in this encounter Care Teams Category Director Relationship Specialty Start Date End Date Sarai Trejo MD [address] [place], [place] [phone] PCP - General Family Medicine 03/22/18 documented as of this encounter
--- OUTSIDE RECORDS SUMMARY | 2025-01-22 10:39 | XMS_ITS | Encounter Summary ---
Author Organization [employer] Address [address] [place] [address] Care Team Providers Care Darklight Inspector Name Role Phone Sarai Trejo MD Primary Care Provider [phone] Encounter Details Date Type Department Care Team ([facility] st Contact Info) Description 01/14/2023 Orders Only [facility] [address] [place], [place] [phone] Kacie Rojas MD [address] [place], [place] [phone] Hypercalcemia (Primary Dx) Social History Tobacco Use [...] Visit [facility]ULT [facility]AL [address] [place] [address] Shira García Scheduled Orders Name Type Priority [...] Bilirubin, Total 0.8 0.0 - 1.0 mg/dL [facility] Bilirubin, Direct 0.2 0.0 - 0.5 mg/dL [facility] Aspartate Amino Transferase 29 5 - 31 U/L [facility] Alanine Aminotransferase 23 0 - 31 U/L [facility] Total Protein 8.0 6.5 - 8.0 g/dL [facility] Albumin Level 4.4 3.5 - 5.0 g/dL [facility] Alkaline Phosphatase 71 39 - 117 U/L [facility] Blood Venous blood specimen / Unknown 01/27/2023 11:57 AM EST 01/27/2023 11:59 AM EST Kacie Rojas MD LAB BLOOD ORDERABLES Final Result Performing Organization Address [facility] Co de Phone Number [facility] [address] [place] [phone] * Vitamin D, 25-Hydroxy, Total, Immunoassay (01/27/2023 11:57 AM EST) Vitamin D 25-OH Total 33.2 >30 ng/mL [facility] Comment:Health Based Referen ce Values*< 20 ng/mL Rliehotjh70-17 ng/mL Insufficient> 30 ng/mL Sufficient*Hanna GRANT. N [...] BLOOD ORDERABLES Final Result Performing Organization Address [facility] Co de Phone Number [facility] [address] [place] [phone] * (ABNORMAL) Calcium (01/27/2023 11:57 AM EST) Calcium 10.7(H) 8.4 - 10.2 mg/dL [facility] Blood Venous blood specimen / Unknown 01/27/2023 11:57 AM EST 01/27/2023 11:59 AM EST Kacie Rojas MD LAB BLOOD ORDERABLES Final Result Performing Organization Address [facility]/ZIP Co de Phone Number [facility] [address] [place] [phone] * (ABNORMAL) PTH, Intact Without Calcium (01/27/2023 11:57 AM EST) PTHI 11(A) 16 - 77 pg/mL [facility] Comment:Interpretive Guide I ntact PTH Calcium -------Normal Parathyroid Normal NormalHypoparathyroidism Low or Low Normal LowHyperparathyroidism Primary Normal or High High Secondary High Normal or Low Tertiary High HighNon-Parathyroid Hypercalcemia Low or Low Normal High Calcium (PTHI) 10.7(A) 8.6 - 10.4 mg/dL [facility] Comment:THIS TEST WAS PERFOR MED AT:[employer] [address] [phone] ROSARIO MD Blood Venous blood specimen / Unknown 01/27/2023 11:57 AM EST 01/27/2023 11:59 AM EST Kacie Rojas MD LAB BLOOD ORDERABLES Final Result Performing Organization Address [facility]/ZIP Co de Phone Number [facility] [address] [place] [phone] documented in this encounter Visit Diagnoses Diagnosis Hypercalcemia- Primary documented in this encounter Care Teams Darklight Inspector Relationship Specialty Start Date End Date Sakurai, Sarai, MD [address] [place] [address] PCP - General Family Medicine 03/22/18 documented as of this encounter
--- OUTSIDE RECORDS SUMMARY | 2025-01-22 10:39 | XMS_ITS | Encounter Summary ---
Author Organization [facility] Address [address] [place] [address] Phone Care Team Providers Care Director Of Testing Name Role Phone JavierHuey Primary Care Provider [phone] Sarai Trejo MD Primary Care Provider [phone] Sarai Trejo MD Primary Care Provider [phone] Encounter Details Date Type Department Care Team (Late st Contact Info) Description 08/12/2017 Ancillary Orders [facility] [address] [place] [address] [place] [address] Anjana Maya MD 230 [facility] 1 [place] [address] Palpitations Social History Tobacco Use Types Packs/Day [...] 11:30 AM EDT Office Visit [facility] [address] [place] [address] [place] [address] Zach Guzmán DO [address] [place] [address] documented as of this encounter Results * [...] Palpitations documented in this encounter Care Teams Director Of Testing Relationship Specialty Start Date End Date Huey Herrera DO [address] [place] [address] PCP - General Cardiology 07/25/20 06/05/24 Sarai Trejo MD [address] [place] [address] PCP - General 07/24/20 07/24/20 Sarai Trejo MD [address] [place] [address] PCP - General Family Medicine 06/06/24 documented as of this encounter Additional Source Comments The information contained in this document represents components of the legal health record. It is not the complete legal health record.[facility]
--- OUTSIDE RECORDS SUMMARY | 2025-01-22 10:39 | XMS_ITS | Encounter Summary ---
Author Organization [employer] Address [address] 7t [place] [address] Care Team Providers Care Engineering Equipment Operator Name Role Phone Sarai Trejo MD Primary Care Provider [phone] Reason for Visit * Reason Onset Date Comments Medication Question 12/19/2024 Encounter Details Date Type Department Care Team ([facility] st Contact Info) Description 12/19/2024 Telephone [facility] MEDICINE [address] [place], [place] [phone] Sarai Trejo MD [address] [place], [place] [phone] Medication Question Social History Tobacco Use Types [...] for Aquanil 1% lotion Contact pt at [phone] documented in this encounter Plan of Treatment Upcoming Encounters Date Type Department Care Team (Late st Contact Info) Description 02/14/2025 10:15 AM EST Office Visit [facility] ADULT DENTAL [address] [place] [address] Shira García documented as of this encounter [...] as of this encounter Care Teams Engineering Equipment Operator Relationship Specialty Start Date End Date Sarai Trejo MD [address] [place] [address] PCP - General Family Medicine 03/22/18 documented as of this encounter
--- OUTSIDE RECORDS SUMMARY | 2025-01-22 10:39 | XMS_ITS | Encounter Summary ---
Author Organization [employer] Address [address] 7[address] [place] [address] Care Team Providers Care Obiee Report Developer Name Role Phone Sarai Trejo MD Primary Care Provider [phone] Encounter Details Date Type Department Care Team ([facility] st Contact Info) Description 01/29/[address] [facility] MED[facility]INE 230 [place], [place] [phone] Yoli Pardo MD 230 [place], [place] [phone] Social History Tobacco Use Types Packs/Day Years [...] Description 02/14/2025 10:15 AM EST Office Visit [facility] ADULT DENTAL 230 [place] [address] Shira García documented as of this encounter Goals Goal Patient Goal Type Associated Problems Recent Progress Patient-Stated? Author Blood Pressure < 140/90 Blood Pressure 138/66(2024 10:42 AM EDT) No Yury Bee, PharmD Hemoglobin A1c < 7 Result Component 7.5( 9:56 AM EDT) No Yury Bee PharmD documented as of this encounter Visit Diagnoses Not on filedocumented in this encounter Care Teams Obiee Report Developer Relationship Specialty Start Date End Date Sarai Trejo MD [address] [place] [address] PCP - General Family Medicine 03/22/18 documented as of this encounter
--- OUTSIDE RECORDS SUMMARY | 2025-01-22 10:40 | XMS_ITS | Encounter Summary ---
Author Organization [employer] Address [address] 7[address] [place] [address] Care Team Providers Care Home Care Physical Therapist Name Role Phone Sarai Trejo MD Primary Care Provider [phone] Reason for Visit * Reason Comments Med Refill Encounter Details Date Type Department Care Team (Late st Contact Info) Description 03/28/2023 Refill [facility] MEDICINE [address] [place], [place] [phone] Sarai Trejo MD 230 [place], [place] [phone] Pain Social History Tobacco Use Types Packs/Day [...] 10:15 AM EST Office Visit [facility] ADULT DENTAL [address] [place] [address] Shira García documented as of this encounter Goals Goal Patient Goal Type Associated Problems Recent Progress Patient-Stated? Author Blood Pressure < 140/90 Blood Pressure 138/66(2024 10:42 AM EDT) No Yury Bee, PharmD Hemoglobin A1c < 7 Result Component 7.5( 9:56 AM EDT) No Yury Bee, Magdalena documented as of this encounter Visit Diagnoses Diagnosis Pain Generalized pain documented in this encounter Care Teams Home Care Physical Therapist Relationship Specialty Start Date End Date Sarai Trejo MD 230 [place] [address] PCP - General Family Medicine 03/22/18 documented as of this encounter
--- OUTSIDE RECORDS SUMMARY | 2025-01-22 10:40 | XMS_ITS | Encounter Summary ---
Author Organization [facility] Address [address] [place] [address] Phone Care Team Providers Care Towboat Engineer Name Role Phone Huey Herrera DO Primary Care Provider Sarai Trejo MD Primary Care Provider [phone] Sarai Trejo MD Primary Care Provider [phone] Encounter Details Date Type Department Care Team (Late st Contact Info) Description 08/12/2017 Ancillary [facility] [address] [place] [address] Anjana Maya MD 230 [facility] 1 [place] [address] Social History Tobacco Use Types Packs/Day Years [...] 11:30 AM EDT Office Visit [facility] [place] [address] Zach [place]zmán [place] [address] documented as of this encounter Visit Diagnoses Not on filedocumented in this encounter Care Teams Towboat Engineer Relationship Specialty Start Date End Date Huey Herrera DO [address] [place] [address] PCP - General Cardiology 07/25/20 06/05/24 Sarai Trejo MD [address] [place] [address] PCP - General 07/24/20 07/24/20 Sarai Trejo MD [address] [place] [address] PCP - General Family Medicine 06/06/24 documented as of this encounter Additional Source Comments The information contained in this document represents components of the legal health record. It is not the complete legal health record.[facility]
--- OUTSIDE RECORDS SUMMARY | 2025-01-22 10:40 | XMS_ITS | Encounter Summary ---
Author Organization [employer] Address [address] 7[address] [place] [address] Care Team Providers Care Security Agent Name Role Phone Sarai Trejo MD Primary Care Provider [phone] Encounter Details Date Type Department Care Team ([facility] st Contact Info) Description 12/31/2022 Orders Only [facility] MEDICINE [address] [place], [place] [phone] Sarai Trejo MD [address] [place], [place] [phone] Osteoporosis without current pathological fracture, unspecified osteoporosis [...] 10:15 AM EST Office Visit [facility] ADULT DENTAL [address] [place] [address] Shira García documented as of this encounter Visit Diagnoses Diagnosis Osteoporosis without current pathological fracture, unspecified osteoporosis type- Primary documented in this encounter Care Teams Security Agent Relationship Specialty Start Date End Date Sarai Trejo MD [address] [place] [address] PCP - General Family Medicine 03/22/18 documented as of this encounter
--- OUTSIDE RECORDS SUMMARY | 2025-01-22 10:40 | XMS_ITS | Clinical Summary ---
Author Organization [address] [facility] Address [address] [place] [address] Phone Care Team Providers Care Cabin Cleaner Name Role Phone Sarai Trejo MD Primary Care Provider [phone] Allergies Active Allergy Reactions Criticality Noted Date [...] day in the morning. 5 Active lancets (Trellouch Delica Plus Lancet) 33 gauge USE DIRECTED [...] Description 12/05/2024 11:30 AM EDT Consult Neurosurgery [address] [address] Nelson Johnson MD Cerebral arterial aneurysm (Primary Dx) 10/25/2024 10:32 AM EDT - 10/25/2024 11:59 PM EDT Hospital Encounter [facility] CT Scan [address] [place] [address] Headache disorder Discharge Disposition: Home or Self Care from Last 3 Months Surgical History Surgery Date Site/Laterality Comments HAND SURGERY KNEE SURGERY SHOULDER SURGERY GALLBLADDER SURGERY Medical History Medical History Date Comments Aneurysm (arteriovenous) of coronary vessels Aneurysm ([facility] V24) Diabetes mellitus ([facility] V24, [facility] V28) Hypertension Social History Tobacco Use Types [...] Description 04/02/2025 3:30 PM EST Office Visit [facility] [address] [place] [address] Lia Ortega MD [address] [place] [address] Health Maintenance Due Date Last Done Comments [...] Signed Date: 10/30/2024 10:15 ET Workstation ID: [id number] Transcribed By: Self Edit Transcribed Date: 10/30/2024 09:56 ET Narrative 10/30/2024 10:15 AM EDT PROCEDURE: CT angiogram of the neck and venetie of Amaral and delayed postcontrast CT of the brain. HISTORY: aneurysm. COMPARISON: CT of the neck dated 06/27/2020. TECHNIQUE: CT angiogram of the neck and venetie of Amaral with multiplanar reformats. Delayed postcontrast [...] tortuous but widely patent basilar artery. The signals collection technician are widely patent. Small caliber P1 segments, [...] PROCEDURE: CT angiogram of the neck and venetie of Amaral and delayedpostcontrast CT of the brain. HISTORY: aneurysm. COMPARISON: CT of the neck dated 06/27/2020. TECHNIQUE: CT angiogram of the neck and venetie of Amaral with multiplanarreformats. Delayed postcontrast images [...] tortuous but widely patent basilar artery. The signals collection technician are widelypatent. Small caliber P1 segments, with [...] Signed Date: 10/30/2024 10:15 ET Workstation ID: [id number] Transcribed By: Self Edit Transcribed Date: 10/30/2024 09:56 ET Jacqui L Panasci PA IMG CT PROCEDURES Final Resu lt from Last 3 Months Insurance [employer] MEDICARE MEDICAID - [place] Care Teams Cabin Cleaner Relationship Specialty Start Date End Date Sarai Trejo MD [address] [place] [phone] PCP - General Family Medicine 08/23/24
--- OUTSIDE RECORDS SUMMARY | 2025-01-22 10:40 | XMS_ITS | Encounter Summary ---
Author Organization [facility] Address [address] [place] [address] Phone Care Team Providers Care Family Nurse Name Role Phone Huey Herrera DO Primary Care Provider [phone] Sarai Trejo MD Primary Care Provider [phone] Sarai Trejo MD Primary Care Provider [phone] Encounter Details Date Type Department Care Team (Late st Contact Info) Description 07/24/2020 Ancillary Orders [facility] [address] [place] [address] Huey Herrera DO [address] [place] [address] Palpitations Social History Tobacco Use Types Packs/Day [...] AM EDT Office Visit [facility] [address] [place] [address] Zach Guzmán DO 22 [place] [address] documented as of this encounter Results * [...] Palpitations documented in this encounter Care Teams Family Nurse Relationship Specialty Start Date End Date Huey Herrera DO [address] [place] [address] PCP - General Cardiology 07/25/20 06/05/24 Sarai Trejo MD [address] [place] [address] PCP - General 07/24/20 07/24/20 Sarai Trejo MD [address] [place] [address] PCP - General Family Medicine 06/06/24 documented as of this encounter Additional Source Comments The information contained in this document represents components of the legal health record. It is not the complete legal health record.[facility]
== END 2025-01-22 09:56 | disposition home or self-care (01) ==
PROVIDERS: PCP Family Medicine; Visit Provider Internal Medicine
DX: J44.9 Chronic obstructive pulmonary disease, unspecified (principal); J30.9 Allergic rhinitis, unspecified
CPT/HCPCS: 99213

== ENCOUNTER → 2025-01-22 09:27 | Outpatient (BNVA) | payer OTHER, SELFPAY | PROVIDERS: PCP Family Medicine; Visit Provider Internal Medicine | DX: J44.9 Chronic obstructive pulmonary disease, unspecified (principal); J30.9 Allergic rhinitis, unspecified | CPT/HCPCS: 99212 ==